=== PATIENT | female | born 1935 | race Caucasian/White ===

== ENCOUNTER 2022-01-04 09:28 | Outpatient (CLI) | payer MEDICARE, BC, SELFPAY ==
--- OUTSIDE RECORDS SUMMARY | 2022-01-04 09:33 | XMS_ITS | Clinical Summary ---
:1935 Author Organization [facility] Address [address] [place] [address] Care Team Providers Name Role Phone Aleisha Hermosillo M.D. Primary Care Provider [phone] Source Comments Patient records contain information from all sites at [facility]. For routine questions regarding patient records, call [phone] during business hours, M-F 8:00 AM - 5:00 PM Central Time. Record requests for emergency care only can be directed to [phone] at any time.[facility] Allergies Active Allergy Reactions Severity Noted Date Comments Lisinopril Other (see comments) 09/01/2014 Tickle in throat x 3 weeks with no other r fernando Medications Medication Sig Dispensed Refills Start Date End Date Status COLCRYS 0.6 mg tablet TAKE 2 TABLETS AT 10 tablet 3 03/26/2018 Active FIRST SIGN OF GOUT FLARE, FOLLOWED BY 1 TABLET ONE HOUR LATER(MAX OF 3 TABLETS PER ATTACK) DO NOT REPEAT FOR 3 DAYS Additional Information Patient not taking. Reported on 08/10/2020 allopurinoL (ZYLOPRIM) Take 1 tablet (100 90 tablet 3 08/11/19 21 Active 100 mg tablet mg total) by mouth daily. cyanocobalamin Inject 1 ml once 1 mL 08/18/2020 Active (VITAMIN B12) 1,000 weekly for 3 mcg/mL injection weeks, then take once monthly thereafter. syringe, disposable, 1 1 ml safety 1 each 08/18/2020 Active mL syringe syringe, 1/2 in needle, 25 Gauge- for use with B12 injections donepeziL (ARICEPT) 10 TAKE ONE TABLET BY 90 tablet 3 05/15/19 22 Active mg tablet MOUTH AT BEDTIME FOR MEMORY chlorthalidone Take 1 tablet (25 90 tablet 0 10/04/2021 Active (HYGROTON) 25 mg mg total) by mouth tablet daily. losartan (COZAAR) 100 TAKE ONE TABLET BY 30 tablet 0 2 Active mg tablet MOUTH EVERY DAY sertraline (ZOLOFT) 50 TAKE ONE TABLET BY 30 tablet 0 12/29/19 22 Active mg tablet MOUTH AT BEDTIME metoprolol tartrate TAKE ONE TABLET BY 60 tablet 0 12/28/2021 Active (LOPRESSOR) 25 mg MOUTH TWICE A DAY tablet metoprolol tartrate Take 1 tablet (25 180 tablet 3 08/10/2020 Discontinued (LOPRESSOR) 25 mg mg total) by mouth 022 tablet 2 (two) times a day. losartan (COZAAR) 100 TAKE ONE TABLET BY 90 tablet 0 2 Discontinued mg tablet MOUTH EVERY DAY 022 sertraline (ZOLOFT) 50 TAKE ONE TABLET BY 90 tablet 0 10/07/19 22 Discontinued mg tablet MOUTH AT BEDTIME 022 Active Problems Problem Noted Date Dementia 03/03/2015 Anxiety 03/03/2015 Hypercholesterolemia 06/01/2013 Overview: Pure hypercholesterolemia Gout 11/26/2012 Regurgitation Aortic 10/20/2011 Hypertension Essential Primary 10/18/2011 Overview: Hypertension Encounters Date Type Specialty Care Team Description 12/27/2021 Refill [facility] Med Refill Aleisha Gonzales M.D. 12/07/2021 Orders Only [place] Monitoring For Aleisha Gonzales Therapeutic Drug Juwan Rust Therapy 10/12/2021 Clinical Family Medicine [place] Quality Alyssa ures Communication Aleisha Gonzales (Hypertensi on) Juwan Rust 10/04/2021 Clinical [facility] chlorthalido ne Communication Aleisha Gonzales M.D. 10/04/2021 Refill [facility] Med Refill Aleisha Gonzales M.D. from Last 3 Months Immunizations Name Administration Dates Next Due Influenza, Unspecified 12/30/2015, 01/07/2015, 12/16/2013, 12/07/2012, 12/06/2011, 12/29/2010 PCV13 08/25/2014 PPSV23 01/28/2011 SARS-COV-2 (COVID-19) - PFIZER (12 06/22/2020, 05/14/2020 years or older) Td (Adult), adsorbed 01/15/2004 Tdap 08/25/2014 influenza high dose (65 years or 01/11/2019, 05/04/2017 older) (PF) Family History Medical History Relation Name Comments Alzheimer's disease Father Hypertension Father Diabetes Mother Hypertension Mother Hypertension Son Relation Name Status Comments Father Mother Son Social History Tobacco Use Types Packs/Day Years Used Date Smoking Tobacco: Never Smokeless Tobacco: Never Alcohol Use Standard Drinks/Week Comments No 0 (1 standard drink = 0.6 oz pure alcoho l) Sex Assigned at Date Recorded Not on file Last Filed Vital Signs Vital Sign Reading Time Taken Comments Blood Pressure 132/50 08/10/2020 11:20 AM CDT Pulse 60 08/10/2020 11:20 AM CDT Temperature 36.8 ??C (98.2 ??F) 08/10/2020 11:20 AM CDT Respiratory Rate 16 01/21/2019 12:25 PM INDUSTRIAL PHARMACIST Oxygen Saturation 95% 08/10/2020 11:20 AM CDT Inhaled Oxygen Concentration - - Weight 56.4 kg (124 lb 5.4 oz) 08/10/2020 11:20 AM CDT Height 162 cm (5' 3.78) 08/10/2020 11:20 AM CDT Body Mass Index 21.49 08/10/2020 11:20 AM CDT Plan of Treatment Health Maintenance Due Date Last Done Comments Zoster Vaccines (1 of 2) 01/11/1986 COVID-19 Vaccine (3 - Booster for 08/17/2020 06/22/2020, Pfizer series) Fall Risk Screen (Annual) 03/06/2021 Creatinine Level 08/10/2021 08/10/2020, 02/04/2019, 05/30/2018, Additional history exists Office Visit for Blood Pressure 08/10/2021 08/10/2020 Check / Re-check Potassium Level 08/10/2021 08/10/2020, 02/04/2019, 05/30/2018, Additional history exists Sodium Level 08/10/2021 08/10/2020, 02/04/2019, 05/30/2018, Additional history exists Visit: Chronic Disease, age 18+ 08/10/2021 08/10/2020 Influenza Vaccine (#1) 2021 01/11/2019, 05/04/2017, 12/30/2015, Additional history exists DTaP,Tdap,and Td Vaccines (2 - Td 08/25/2024 08/25/2014, or Tdap) Pneumococcal vaccine (65+ years) Completed 08/25/2014, Insurance Payer Benefit Plan Subscriber ID Effective Phone Address Typ e / Group Dates MEDICARE MEDICARE A [id number] 2001-Pre [address] [place] [address] BLUE CROSS BCBS [place] [id number] 2016-Pres [phone] PO TRI X Cost Share BLUE SHIELD BLUE COST ent [phone] [place] [address] Advance Directives For more information, please contact: [phone] Documents on File Type Date Recorded Patient Starchmaker Explanati on Advance Directives 05/24/2018 8:02 AM Health Care Directive Healthcare Agents on File Name Relationship Healthcare Agent Relationship Co mmunication Rickey Duenas Spouse Health Care Agent [phone] ( Home) Beto Duenas Son First Alternate Health Care Agen t Care Teams Water Treatment Plant Repairer Relationship Specialty Start Date End Date Aleisha Hermosillo M.D. PCP - General 08/18/[address] [place] [address] ANABEL Tapia [phone]
--- OUTSIDE RECORDS SUMMARY | 2022-01-04 09:33 | XMS_ITS | Encounter Summary ---
:1935 Author Organization [facility] Address [address] [place] [address] Care Team Providers Name Role Phone Aleisha Hermosillo M.D. Primary Care Provider [phone] Reason for Visit Reason Comments Med Refill Encounter Details Date Type Department Care Team Description 08/27/2020 Refill Department of [facility] Stephany Hermosillo Med Refill Medicine, [place] Juwan Rust [facility], in [address] [address] [place], [place] [address] [phone] Social History Tobacco Use Types Packs/Day Years Used Date Smoking Tobacco: Never Smokeless Tobacco: Never Alcohol Use Standard Drinks/Week Comments No 0 (1 standard drink = 0.6 oz pure alcoho l) Sex Assigned at Date Recorded Not on file documented as of this encounter Plan of Treatment Not on filedocumented as of this encounter Visit Diagnoses Not on filedocumented in this encounter Care Teams Multiple Pressure Riveter Operator Relationship Specialty Start Date End Date Aleisha Hermosillo M.D. PCP - General 08/18/[address] [place] [phone] documented as of this encounter
--- OUTSIDE RECORDS SUMMARY | 2022-01-04 09:33 | XMS_ITS | Encounter Summary ---
:1935 Author Organization [facility] Address [address] [place] [address] Care Team Providers Name Role Phone Aleisha Hermosillo M.D. Primary Care Provider [phone] Reason for Referral Outpatient (Routine) - Closed Specialty Diagnoses / Procedures Referred By Contact Refer red To Contact Stephany Hermosillo M.D. [address] [phone] Referral ID Status Reason Start Date Expiration Date Visits Requ ested Visits Authorized [id number] Closed 08/17/2020 08/17/2021 1 1 Encounter Details Date Type Department Care Team Description 08/17/2020 Orders Only [facility] (Primary Dx) [address] [address] [place], [place] [phone] (W ork) [phone] Social History Tobacco Use Types Packs/Day Years Used Date Smoking Tobacco: Never Smokeless Tobacco: Never Alcohol Use Standard Drinks/Week Comments No 0 (1 standard drink = 0.6 oz pure alcoho l) Sex Assigned at Date Recorded Not on file documented as of this encounter Plan of Treatment Scheduled Referrals Name Type Priority Associated Order Schedule Diagnoses Primary Care nurse Outpatient Referral Routine Ex pected: visit (clinic) - 08/18/2020, [facility] Region; Expires: Medication injection 024 (order medication); B12 documented as of this encounter Visit Diagnoses Diagnosis Anemia Pernicious - Primary documented in this encounter Care Teams Block Mason Relationship Specialty Start Date End Date Aleisha Hermosillo M.D. PCP - General 08/18/[address] [place] [phone] documented as of this encounter
--- OUTSIDE RECORDS SUMMARY | 2022-01-04 09:33 | XMS_ITS | Encounter Summary ---
:1935 Author Organization [facility] Address [address] [place] [address] Care Team Providers Name Role Phone Aleisha Hermosillo M.D. Primary Care Provider [phone] Reason for Referral Specialty Diagnoses / Procedures Referred By Contact Refer red To Contact Stephany Hermosillo M.D. [address] [phone] Referral ID Status Reason Start Date Expiration Date Visits Requ ested Visits Authorized CANDY MOLDER Encounter Details Date Type Department Care Team Description 2021 Orders Only [facility] PCP [facility] Aleisha Terrazas M.D. [address] [place] [phone] (Wo rk) Social History Tobacco Use Types Packs/Day Years Used Date Smoking Tobacco: Never Smokeless Tobacco: Never Alcohol Use Standard Drinks/Week Comments No 0 (1 standard drink = 0.6 oz pure alcoho l) Sex Assigned at Date Recorded Not on file documented as of this encounter Plan of Treatment Scheduled Referrals Name Type Priority Associated Order Schedule Diagnoses Covid immunization Outpatient Referral Routine Ex pected: office visit Booster 021 (Approximate), Expires: 2022 documented as of this encounter Visit Diagnoses Not on filedocumented in this encounter Care Teams Manager Relationship Relationship Specialty Start Date End Date Aleisha Hermosillo M.D. PCP - General 08/18/[phone] [place] [phone] documented as of this encounter
--- OUTSIDE RECORDS SUMMARY | 2022-01-04 09:33 | XMS_ITS | Encounter Summary ---
:1935 Author Organization [facility] Address [address] [place] [address] Care Team Providers Name Role Phone Aleisha Hermosillo M.D. Primary Care Provider Reason for Visit Reason Comments Medication Question Encounter Details Date Type Department Care Team Description 08/27/2020 Nurse Triage Department of Helene Caldera, [facility] Medicine, [facility], in [place] [phone] [place], [place] ([address] [phone] Social History Tobacco Use Types Packs/Day Years Used Date Smoking Tobacco: Never Smokeless Tobacco: Never Alcohol Use Standard Drinks/Week Comments No 0 (1 standard drink = 0.6 oz pure alcoho l) Sex Assigned at Date Recorded Not on file documented as of this encounter Miscellaneous Notes Telephone Encounter - Helene Tam R.N. - 08/27/2020 4:03 PM CDT Chief Complaint / Reason for Call Patient is a 85 y.o. female calling regarding Medication Question. Assessment Concern: Daughter in law calls due to giving patient .1 instead of 1 mg of B12 on Monday. She reports she recently started on B12 a couple weeks ago. Daughter in law was advised to reach out provider if how they would want to proceed. All questions answered at this time. The recommended disposition is Call PCP Within 24 Hours. Reason for Disposition ??? Caller has NON-URGENT medication question about med that PCP prescribed and triager unable to answer question Protocols used: MEDICATION QUESTION [id number] Care Advice Patient/Caregiver understands and will follow care advice?: Yes, able to teach back CARE ADVICE given per Medication Question Call (Adult) guideline. documented in this encounter Plan of Treatment Not on filedocumented as of this encounter Visit Diagnoses Not on filedocumented in this encounter Care Teams Improvement Spec Relationship Specialty Start Date End Date Aleisha Hermosillo M.D. PCP - General 08/18/[address] [place] [phone] documented as of this encounter
--- OUTSIDE RECORDS SUMMARY | 2022-01-04 09:33 | XMS_ITS | Encounter Summary ---
:1935 Author Organization [facility] Address [address] [place] [address] Care Team Providers Name Role Phone Aleisha Hermosillo M.D. Primary Care Provider [phone] Reason for Visit Reason Comments Med Refill Encounter Details Date Type Department Care Team Description 05/12/2021 Refill Department of [facility] Stephany Hermosillo Med Refill Medicine, [place] Juwan Rust [facility], in [address] [address] [place], [place] [phone] Social History Tobacco Use Types Packs/Day Years [...] on filedocumented in this encounter Care Teams Machinist Linotype Relationship Specialty Start Date End Date Aleisha Hermosillo M.D. PCP - General 08/18/[address] [place] [phone] documented as of this encounter
--- OUTSIDE RECORDS SUMMARY | 2022-01-04 09:33 | XMS_ITS | Encounter Summary ---
:1935 Author Organization [facility] Address [address] [place] [address] Care Team Providers Name Role Phone Aleisha Hermosillo M.D. Primary Care Provider [phone] Reason for Visit Occupational Therapy (Routine) - Closed Specialty Diagnoses / Procedures Referred By Contact Refer red To Contact Diagnoses Dementia (HCC) Aleisha Hermosillo [facility] Procedures OT Evaluate and treat Juwan Rust [address] [place] [phone] Referral ID Status Reason Start Date Expiration Date Visits Requ ested Visits Authorized [id number] Closed 08/10/2020 08/10/2021 99 99 Encounter Details Date Type Department Care Team Description 08/18/2020 Comprehensive Visit Department of [place] Aleisha Melgoza M.D. [address] [place] [phone] Dementia (HCC) Rehabilitation Services Val De Santiago O.T. in [address] [phone] Social History Tobacco Use Types Packs/Day Years Used Date Smoking Tobacco: Never Smokeless Tobacco: Never Alcohol Use Standard Drinks/Week Comments No 0 (1 standard drink = 0.6 oz pure alcoho l) Sex Assigned at Date Recorded Not on file documented as of this encounter Consult Notes Val De Santiago O.T. - 08/18/2020 11:00 AM CDT Occupational Therapy Outpatient Evaluation/Treatment By co-signing this note, the provider certifies the therapy being provided to this patient is reasonable and necessary for the diagnosis or treatment of this patient. SUBJECTIVE Patient's Name: Janeth Duenas Referring Provider: Aleisha Otero* Visit Diagnosis: 1. Dementia (HCC) Reason for Referral: OT referral for cognitive assessment Onset Date: 08/17/20 Payor: MEDICARE / Plan: MEDICARE A AND B / Product Type: Medicare / Visit Count: 1 PERTINENT MEDICAL / SURGICAL HISTORY: Patient Active Problem List Diagnosis ??? Hypertension Essential Primary ??? Dementia (HCC) ??? Gout ??? Hypercholesterolemia ??? Regurgitation Aortic ??? Anxiety Past Surgical History: Procedure Laterality Date ??? HYSTERECTOMY N/A 1976 Hysterectomy Janeth Duenas is a 85 y.o. female who presents to outpatient occupational therapy for evaluation. Her symptoms consist of: 1. Dementia Overall she reports her status is worsening . History of Present Illness:She has diagnoses of dementia and is currently on Aricept Previous Treatments: No previous treatments Prior Function/Occupational Profile: Prior Mobility/Functional Transfers Level of [place]: Independent Prior Function/Occupational Profile Lives With: Spouse Receives Help From: Family ADL Assistance: Modified independent IADL/Homemaking Assistance: Required assistance IADL/Homemaking Assistance Comments: spouse assists Driving: Does not drive Driving Comments: She reports she drives but ckuzfzkz-vj-zsv indicated she does not; spouse drives Occupational Role: Retired Family/Caregiver Present: Yes (Wfskyibd-gj-ceu Katie) Patient goals:cognitive screen Precautions Other Precautions: cognition Contact monitoring: PPE used during therapy: Therapist was wearing the following PPE throughout entire session: surgicalmask OBJECTIVE PHYSICAL EXAM Ortho Exam Cognition Arousal/Alertness: Appropriate responses to stimuli Initiation: No difficulty with initiation Memory: Addressed, no concerns noted Janeth Duenas was administered the [facility] Mental Status Exam (SLUMS), which delia screening tool used to assess orientation, memory, attention, and executive functions. Janeth Duenas has a high school education level of education and received a score of 30on 08/18/20. High School Education Scoring Less than High School 27-30 Normal 25-30 21-26 Mild Cognitive Impairment 20-24 1-20 Dementia 1-19 SLUMS Score Summary: +2/3 Orientation +3/3 Mental Manipulation of Money +1/3 Animal Fluency +0/5 Word Recall +1/2 Reverse Numbers +1/4 Draw a Clock +2/2 Shape Recognition +0/8 Recall from Story Patient shows significant decline in memory. Throughout the interview about her daily living tasks, she often reported independence with items in which her uzobbyxl-zc-qwr reported she received assistance for. Recommend her spouse managed the finances and medications (sysvpyas-jg-llu sets up and he ensures she takes). She should not use stove/oven without someone around and should not drive. Education completed with use of calendar, keeping track of when she takes baths, ideas for journals/lists, putting dirty clothes immediately in laundry instead of leaving out, etc. At this level of dementia, wemay start to notice cues needed for hygiene. At this time, her kfmdrpyd-oa-art felt she was doing ok with this. Talked with her about ways to continue to stimulate her brain including reading, cards, keeping up with news, orienting self every morning and throughout day, keeping physically active and having a well rounded diet. Patient and dmbssjwu-jg-anx reported no further questions. Assessment Clinical Impression: Ms. Duenas presents to occupational therapy with signs and symptoms consistentwith dementia/cognitive impairment Rehab Potential: Ms. Duenas has potential to achieve established occupational therapy goals within the time frame outlined below, provided she actively participates in her occupational therapy treatment plan and home program. Comorbid Conditions: Cognitive/memory disorder Occupational Profile and History review: Brief Performance Deficits: 1 - 3 performance deficits Evaluation Complexity: Low Discharge Therapy Needs - OT: No further therapy recommended Functional Goals and Timeframes: OT Goal #1: Patient will participate in cognitive screen OT Goal #1 Date: 08/18/20 Plan Ms. Duenas was educated regarding evaluative findings, diagnosis, prognosis, potential risks and benefits of rehabilitation interventions. A collaborative effort was used to establish goals and plan of care. She was informed of her right to make decisions regarding her care, including refusal of examination or treatment or selection of services from another provider if desired. The treatment plan may be progressed or modified based upon her response to treatment. Treatment Plan: Start of Plan of Care: 08/18/2020 OT Next Certification Date: 09/17/20 Number of Visits: up to visits OT Duration: OT Frequency: One-time visit Treatment interventions may include: Treatment Interventions: Self-care/home management. Plan: Discontinue OT Occupational Therapy Attestation Statement: Patient agrees with the plan of care and goals. Time Spent with Patient OT Evaluation (min): 18 min Home Management Training (min): 27 min Time Calculation Total Timed Units (min): 27 min Total Treatment Time (min): 45 min Val De Santiago O.T. Department of Rehabilitation Services in [address] [phone] Dept: [phone] documented in this encounter Plan of Treatment Not on filedocumented as of this encounter Visit Diagnoses Diagnosis Dementia (HCC) documented in this encounter Care Teams Practical Ministries Professor Relationship Specialty Start Date End Date Aleisha Hermosillo M.D. PCP - General 08/18/[address] [place] [phone] documented as of this encounter
--- OUTSIDE RECORDS SUMMARY | 2022-01-04 09:33 | XMS_ITS | Encounter Summary ---
:1935 Author Organization [facility] Address [address] [place] [address] Care Team Providers Name Role Phone Aleisha Hermosillo M.D. Primary Care Provider [phone] Reason for Visit Reason Comments Medication Question syringe, disposable, 1 mL sy ringe Encounter Details Date Type Department Care Team Description 08/18/2020 Clinical Department of [facility], [place] st[place] Communication Family Medicine, Aleisha Gonzales (chrystal eKeith M.D. disposable, 1 mL Clinic, in [place] [address] syringe ) [address] [address] [place], [place] [phone] (Work) [phone] Social History Tobacco Use Types Packs/Day Years Used Date Smoking Tobacco: Never Smokeless Tobacco: Never Alcohol Use Standard Drinks/Week Comments No 0 (1 standard drink = 0.6 oz pure alcoho l) Sex Assigned at Date Recorded Not on file documented as of this encounter Miscellaneous Notes Telephone Encounter - Penny Munroe, L.P.N. - 08/26/2020 10:08 AM CDT Patient called and was asking why they only got one syringe for administering the B12 at home. Contacted [facility] pharmacy and will dispense one weekly for three weeks then once monthly as RX is written. Telephone Encounter - Alon Lewis L.P.N. - 08/18/2020 1:45 PM CDT Information Discussed Contacted Pharmacy. Verified that the medication route was subcutaneous, needle size required for this injection is 25G 5/8in. Pharmacist had no further questions or concerns. PLAN Disposition/Recommendation: self-care . appropriate at this time, patient encouraged to call back with questions Information/Education: patient/caller able to teach back Caller agreeable to plan of care: yes The following references were used: nursing clinical judgement Telephone Encounter - Arleth Singer - 08/18/2020 9:01 AM CDT Reason for Communication: Confirmation on Script sent/ possibly to use a different kind Current Can Nursing/Provider leave a detailed message: yes Did the patient refuse triage through Nurse line? (for symptom based concerns)na Action Needed: please call to discuss options Name of Medication (if relevant): syringe, disposable, 1 mL syringe documented in this encounter Plan of Treatment Not on filedocumented as of this encounter Visit Diagnoses Not on filedocumented in this encounter Care Teams Electrocardiograph Repairer Relationship Specialty Start Date End Date Aleisha Hermosillo M.D. PCP - General 08/18/[address] [phone] documented as of this encounter
--- OUTSIDE RECORDS SUMMARY | 2022-01-04 09:33 | XMS_ITS | Encounter Summary ---
:1935 Author Organization [facility] Address [address] [place] [address] Care Team Providers Name Role Phone Aleisha Hermosillo M.D. Primary Care Provider Encounter Details Date Type Department Care Team Description 2021 Orders Only RST PCP [facility] Aleisha Terrazas M.D. [address] [address] [place] [phone] (Wo rk) Social History Tobacco Use Types [...] on filedocumented in this encounter Care Teams Returner Relationship Specialty Start Date End Date Aleisha Hermosillo M.D. PCP - General 08/18/[address] [phone] documented as of this encounter
--- OUTSIDE RECORDS SUMMARY | 2022-01-04 09:33 | XMS_ITS | Encounter Summary ---
:1935 Author Organization [facility] Address [address] [place] [address] Care Team Providers Name Role Phone Aleisha Hermosillo M.D. Primary Care Provider Reason for Visit Reason Comments B12 Injection Outpatient (Routine) - Closed Specialty Diagnoses / Procedures Referred By Contact Refer red To Contact Stephany Hermosillo M.D. [address] [phone] Referral ID Status Reason Start Date Expiration Date Visits Requ ested Visits Authorized [id number] Closed 08/17/2020 08/17/2021 1 1 Encounter Details Date Type Department Care Team Description 08/18/2020 Nurse Only Department of [facility] Aleisha Avitia M.D. [address] [place] [phone] B12 Injection Medicine, [place] [facility], in [address] [phone] Social History Tobacco Use Types Packs/Day Years Used Date Smoking Tobacco: Never Smokeless Tobacco: Never Alcohol Use Standard Drinks/Week Comments No 0 (1 standard drink = 0.6 oz pure alcoho l) Sex Assigned at Date Recorded Not on file documented as of this encounter Progress Notes Bonnie Duque L.PKaiN. - 08/18/2020 1:30 PM CDT Patient identifiers were verified and the following medication was administered to the patient today: Cyanocobalamin (Vitamin B12) Left upper arm (back). During this visit: Patient tolerated medicationadministration with no issues identified. documented in this encounter Plan of Treatment Not on filedocumented as of this encounter Visit Diagnoses Diagnosis Anemia Pernicious documented in this encounter Administered Medications Inactive Administered Medications - up to 3 most recent administrations Medication Order MAR Action Action Date Dose Rate Site cyanocobalamin 1,000 Given 08/18/2020 11:46 1,000 mcg Left Upper Arm mcg/mL injection 1,000 mcg AM CDT (Back) (VITAMIN B12) 1,000 mcg, subcutaneous, Weekly, First dose on Mon08/18/20 at 0900, For 4 doses documented in this encounter Care Teams Manager Salt Relationship Specialty Start Date End Date Aleisha Hermosillo M.D. PCP - General 08/18/[address] [place] [phone] documented as of this encounter
--- OUTSIDE RECORDS SUMMARY | 2022-01-04 09:33 | XMS_ITS | Encounter Summary ---
:1935 Author Organization [facility] Address [address] [place] [address] Care Team Providers Name Role Phone Aleisha Hermosillo M.D. Primary Care Provider [phone] Reason for Visit Reason Comments Med Refill Encounter Details Date Type Department Care Team Description 08/17/2021 Refill Department of [facility] Stephany Hermosillo Med Refill Medicine, [place] Juwan Rust [facility], in [address] [address] [place], [place] [phone] Social History Tobacco Use Types Packs/Day Years [...] on filedocumented in this encounter Care Teams Light Cleaner Relationship Specialty Start Date End Date Aleisha Hermosillo M.D. PCP - General 08/18/[address] [place] [phone] documented as of this encounter
--- OUTSIDE RECORDS SUMMARY | 2022-01-04 09:33 | XMS_ITS | Encounter Summary ---
:1935 Author Organization [facility] Address [address] [place] [address] Care Team Providers Name Role Phone Aleisha Hermosillo M.D. Primary Care Provider [phone] Reason for Referral Specialty Diagnoses / Procedures Referred By Contact Refer red To Contact Leta Gomes M.D. [facility] [address] [place] [address] Referral ID Status Reason Start Date Expiration Date Visits Requ ested Visits Authorized AVINGS POLISHER Encounter Details Date Type Department Care Team Description 01/15/2021 Orders Only RST PCP [facility] Leta Gomes M.D. [address] [place], [place] [phone] (Wo rk) Social History Tobacco Use Types [...] pected: office visit Booster 021 (Approximate), Expires: 01/15/2022 documented as of this encounter Visit Diagnoses Not on filedocumented in this encounter Care Teams Instrumentation Technologist Relationship Specialty Start Date End Date Aleisha Hermosillo M.D. PCP - General 08/18/[address] [place] [phone] documented as of this encounter
--- OUTSIDE RECORDS SUMMARY | 2022-01-04 09:33 | XMS_ITS | Encounter Summary ---
:1935 Author Organization [facility] Address [address] [place] [address] Care Team Providers Name Role Phone Aleisha Hermosillo M.D. Primary Care Provider [phone] Reason for Referral Outpatient (Routine) - Authorized Specialty Diagnoses / Procedures Referred By Contact Refer red To Contact Stephany Hermosillo M.D. [facility] [address] [place] [phone] Referral ID Status Reason Start Date Expiration Date Visits V isits Requested Authorized [id number] Authorized 12/07/2021 12/06/2024 1 1 Encounter Details Date Type Department Care Team Description 12/07/2021 Orders Only [facility] PCP [facility] Noa Hermosillo For MNT Aleisha Rust M.D. Therapeutic Drug [address] [place] [address] [place] [phone] (Wo rk) Social History Tobacco Use Types Packs/Day Years Used Date Smoking Tobacco: Never Smokeless Tobacco: Never Alcohol Use Standard Drinks/Week Comments No 0 (1 standard drink = 0.6 oz pure alcoho l) Sex Assigned at Date Recorded Not on file documented as of this encounter Plan of Treatment Scheduled Orders Name Type Priority Associated Diagnoses Order S rosemary Basic Metabolic Panel Lab Routine Monitoring For Ther apeutic Expected: 12/21/2021, Drug Therapy Expires: 2022 Scheduled Referrals Name Type Priority Associated Diagnoses Order S rosemary Primary Care nurse Outpatient Referral Routine Ex pected: visit (clinic) - 12/21/2021, [facility]; Expires: BP check; BP check 3 only (HELP DESK REP) documented as of this encounter Visit Diagnoses Diagnosis Monitoring For Therapeutic Drug Therapy documented in this encounter Care Teams Health Service Coordinator Relationship Specialty Start Date End Date Aleisha Hermosillo M.D. PCP - General 08/18/[address] [place] [phone] documented as of this encounter
--- OUTSIDE RECORDS SUMMARY | 2022-01-04 09:33 | XMS_ITS | Encounter Summary ---
:1935 Author Organization [facility] Address [address] [place] [address] Care Team Providers Name Role Phone Aleisha Hermosillo M.D. Primary Care Provider [phone] Reason for Visit Reason Comments Quality Measures Hypertension Encounter Details Date Type Department Care Team Description 10/12/2021 Clinical Department of [place] Quality Measur es Communication Family Medicine, Aleisha Gonzales (Hypert ension) [facility] M[facility], in [address] [address] [place], [place] [phone] (Work) [phone] Social History Tobacco Use Types Packs/Day Years Used Date Smoking Tobacco: Never Smokeless Tobacco: Never Alcohol Use Standard Drinks/Week Comments No 0 (1 standard drink = 0.6 oz pure alcoho l) Sex Assigned at Date Recorded Not on file documented as of this encounter Miscellaneous Notes Telephone Encounter - Pina Duenas - 10/18/2021 4:47 PM CDT Spoke with caregiver/ daughter in law (Katie) - she is doctoring elsewhere and no appointments needed at this time Telephone Encounter - Clara Jackson, RKaiN. - 10/12/2021 2:24 PM CDT Patient out of range for hypertension quality measures due to being due for blood pressure check. LV08/10/2020. Order in chart for visit. Message sent to scheduling to assist patient in making appointment. documented in this encounter Plan of Treatment Not on filedocumented as of this encounter Visit Diagnoses Not on filedocumented in this encounter Care Teams Biomedical Analytical Scientist Relationship Specialty Start Date End Date Aleisha Hermosillo M.D. PCP - General 08/18/[address] [place] [phone] documented as of this encounter
--- OUTSIDE RECORDS SUMMARY | 2022-01-04 09:33 | XMS_ITS | Encounter Summary ---
:1935 Author Organization [facility] Address [address] [place] [address] Care Team Providers Name Role Phone Aleisha Hermosillo M.D. Primary Care Provider [phone] Reason for Visit Reason Comments Med Refill Encounter Details Date Type Department Care Team Description 10/04/2021 Refill Department of [facility] Stephany Hermosillo Med Refill Medicine, [place] Juwan Rust [facility], in [address] [address] [place], [place] [phone] Social History Tobacco Use Types Packs/Day Years [...] on filedocumented in this encounter Care Teams Material Assembler Relationship Specialty Start Date End Date Aleisha Hermosillo M.D. PCP - General 08/18/[address] [place] [phone] documented as of this encounter
--- OUTSIDE RECORDS SUMMARY | 2022-01-04 09:33 | XMS_ITS | Encounter Summary ---
:1935 Author Organization [facility] Address [address] [place] [address] Care Team Providers Name Role Phone Aleisha Hermosillo M.D. Primary Care Provider [phone] Reason for Visit Reason Comments Results Encounter Details Date Type Department Care Team Description 08/17/2020 Clinical Communication Department of [facility] Carly lott, Results Medicine, Keith Rust M.D. [facility], [address] [address] [place], [place] [phone] (Work) [phone] Social History Tobacco Use Types Packs/Day Years Used Date Smoking Tobacco: Never Smokeless Tobacco: Never Alcohol Use Standard Drinks/Week Comments No 0 (1 standard drink = 0.6 oz pure alcoho l) Sex Assigned at Date Recorded Not on file documented as of this encounter Miscellaneous Notes Telephone Encounter - Clara Jackson R.N. - 08/17/2020 3:45 PM CDT Information Discussed Spoke with Katie and relayed provider message. She would like to do the initial visit in clinic andwill plan to do subsequent administrations for patient at home. Please send medication and syringe order to [facility]. PLAN Disposition/Recommendation: notified provider and awaiting recommendations Information/Education: patient/caller able to teach back Caller agreeable to plan of care: yes The following references were used: provider Dr. Vieyra Telephone Encounter - Rachel Torres - 08/17/2020 3:19 PM CDT Patient returned call. Telephone Encounter - Clara Jackson R.N. - 08/17/2020 9:50 AM CDT Left message for daughter in law Wilson to contact clinic regarding [place] results. Telephone Encounter - Clara Jackson R.N. - 08/17/2020 9:50 AM CDT ----- Message from Aleisha Gonzales M.D. sent at 08/17/2020 9:37 AM CDT ----- Please let patient's daughter in law Wilson know that patient's labs show some abnormalities. 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 We treat this with a B12 injection initially weekly for 1 monthand then monthly thereafter. This can either be administered in the clinic or by family at home. Otherwise thyroid test is normal. Electrolytes are normal. Her kidney function has declined some which is not unusual with age. Blood sugar and uric acid levels are normal. I will place order for the B12 injection to initially be given in the clinic. documented in this encounter Plan of Treatment Not on filedocumented as of this encounter Visit Diagnoses Not on filedocumented in this encounter Care Teams Aquatic Ecologist Relationship Specialty Start Date End Date Aleisha Hermosillo M.D. PCP - General 6/15/[phone] [phone] documented as of this encounter
--- OUTSIDE RECORDS SUMMARY | 2022-01-04 09:33 | XMS_ITS | Encounter Summary ---
:1935 Author Organization [facility] Address [address] [place] [address] Care Team Providers Name Role Phone Aleisha Hermosillo M.D. Primary Care Provider [phone] Reason for Visit Reason Comments Med Refill Encounter Details Date Type Department Care Team Description 12/27/2021 Refill Department of [facility] Stephany Hermosillo Med Refill Medicine, [place] Juwan Rust [facility], in [address] [address] [place], [place] [address] [phone] Social History Tobacco Use Types Packs/Day Years [...] on filedocumented in this encounter Care Teams Bevel Gear Generator Operator Relationship Specialty Start Date End Date Aleisha Hermosillo M.D. PCP - General 08/18/[address] [place] [phone] documented as of this encounter
--- OUTSIDE RECORDS SUMMARY | 2022-01-04 09:33 | XMS_ITS | Encounter Summary ---
:1935 Author Organization [facility] Address [address] [place] [address] Care Team Providers Name Role Phone Aleisha Hermosillo M.D. Primary Care Provider [phone] Reason for Visit Reason Comments chlorthalidone Encounter Details Date Type Department Care Team Description 10/04/2021 Clinical Communication Department of [place] [facility] [place] [facility], in [address] [address] [place], [place] [phone] (Work) [phone] Social History Tobacco Use Types Packs/Day Years Used Date Smoking Tobacco: Never Smokeless Tobacco: Never Alcohol Use Standard Drinks/Week Comments No 0 (1 standard drink = 0.6 oz pure alcoho l) Sex Assigned at Date Recorded Not on file documented as of this encounter Miscellaneous Notes Telephone Encounter - Aleisha Hermosillo M.D. - 10/04/2021 2:44 PM CDT Patient is due for visit and labs which were ordered. I did refill chlorthalidone for 90 days to allow patient to have this appointment. Telephone Encounter - Patricia Rubio L.PKaiN. - 10/04/2021 2:40 PM CDT According to the chart, Janeth should be taking this as just one tablet daily. Not sure when the error began. Last fill was end of August for 90 tabs. Will she need any blood work to be done due to this error? If so, please order and we'll call Katie, her dtr in law back. Telephone Encounter - Alisha Madrigal - 10/04/2021 12:26 PM CDT Reason for Communication: Patients daughter in law called - patient is out of her Chlorthalidone - she has been taking 2 tablets daily. Not sure if that was ordered by you or if patient is doing it on her own. Please review and call daughter in law Wilson back at Current Can Nursing/Provider leave a detailed message?: yes you can Did the patient refuse triage through Nurse line? (for symptom based concerns): na Action Needed: Please call Katie back Name of Medication (if relevant): Chlorthalidone Please send all scheduling replies to scheduling pool. documented in this encounter Plan of Treatment Not on filedocumented as of this encounter Visit Diagnoses Diagnosis Hypertension Essential Primary - Primary documented in this encounter Care Teams Reconditioner Relationship Specialty Start Date End Date Aleisha Hermosillo M.D. PCP - General 08/18/[address] [phone] documented as of this encounter
--- OUTSIDE RECORDS SUMMARY | 2022-01-04 09:34 | XMS_ITS | Encounter Summary ---
:1935 Author Organization [facility] Address [address] [place] [address] Care Team Providers Name Role Phone Aleisha Hermosillo M.D. Primary Care Provider [phone] Reason for Referral Occupational Therapy (Routine) - Closed Specialty Diagnoses / Procedures Referred By Contact Refer red To Contact Diagnoses Dementia ([facility]) [facility] Procedures OT Evaluate and treat Juwan Rust [address] [place] [id number] Referral ID Status Reason Start Date Expiration Date Visits Requ ested Visits Authorized [id number] Closed 08/10/2020 08/10/2021 99 99 Reason for Visit Reason Comments Med Management physical Cognitive Concerns would like to test memory Appointment Request (Routine) - Closed Specialty Diagnoses / Procedures Referred By Contact Refer red To Contact Family Medicine Referral ID Status Reason Start Date Expiration Date Visits Requ ested Visits Authorized [id number] Closed 06/15/2020 06/15/2021 1 1 Encounter Details Date Type Department Care Team Description 08/10/2020 Comprehensive Visit Department of Carroll Deng hyman ([facility]) (Primary Dx); Family MedicineJanet Megan Hyperten abhilash Essential Primary; Keith Rust M.D. Gout; Clinic, in [place] [address] Anxiety ; [place], [place] [address] Regurgitation Aortic; [address] [place] [address] [address] [place] [address] [address] [place] [phone] (Work) [phone] Social History Tobacco Use Types Packs/Day Years Used Date Smoking Tobacco: Never Smokeless Tobacco: Never Alcohol Use Standard Drinks/Week Comments No 0 (1 standard drink = 0.6 oz pure alcoho l) Sex Assigned at Date Recorded Not on file documented as of this encounter Last Filed Vital Signs Vital Sign Reading Time Taken Comments Blood Pressure 132/50 08/10/2020 11:20 AM CDT Pulse 60 08/10/2020 11:20 AM CDT Temperature 36.8 ??C (98.2 ??F) 08/10/2020 11:20 AM CDT Respiratory Rate - - Oxygen Saturation 95% 08/10/2020 11:20 AM CDT Inhaled Oxygen Concentration - - Weight 56.4 kg (124 lb 5.4 oz) 08/10/2020 11:20 AM CDT Height 162 cm (5' 3.78) 08/10/2020 11:20 AM CDT Body Mass Index 21.49 08/10/2020 11:20 AM CDT documented in this encounter Progress Notes Patricia Rubio L.P.N. - 08/10/2020 11:00 AM CDT Janeth is seen by Dr. Carroll who ordered lavage of the right ear. Verified there are no PE (pressure equalization) tubes in place. The procedure was explained to the patient and verbal consent obtained. Irrigation was performed using an ear irrigation system and 500 cc . Irrigant returned yellow with moderate amount of soft cerumen. The procedure was tolerated well, without complication. Instructed not to place cotton tip swabs or other foreign objects in ears and to call the office if there is pressure, discomfort, irritability, and/or decreased hearing. Understanding verbalized. Provider notified of completion. Aleisha Hermosillo M.D. - 08/10/2020 11:00 AM CDT SUBJECTIVE CHIEF COMPLAINT / REASON FOR VISIT Janeth Duenas is a 85 y.o. female who presents for evaluation of Med Management (physical ) and Cognitive Concerns (would like to test memory ). HISTORY OF PRESENT ILLNESS Janeth presents with her [id number] today. She continues to have significant troubles with her memory and is no longer to take care of tasks at home. She repeats herself. Family helps to manage herpills and finances. She no longer drives. They would like to pursue cognitive testing. She complains of an occasional earache and sore throat. She is cold a lot. She denies any chest pain or shortness of breath. She has not had any gouty attacks. Mood is generally good. She has been sleeping more during the day. Appetite is good and weight is stable. REVIEW OF SYSTEMS A brief review of systems was negative except for that mentioned in the history of present illness. Current Outpatient Medications Medication Sig ??? allopurinoL (ZYLOPRIM) 100 mg tablet Take 1 tablet (100 mg total) by mouth daily. ??? chlorthalidone (HYGROTON) 25 mg tablet Take 1 tablet (25 mg total) by mouth daily. ??? donepeziL (ARICEPT) 10 mg tablet Take 1 tablet (10 mg total) by mouth at bedtime. ??? losartan (COZAAR) 100 mg tablet Take 1 tablet (100 mg total) by mouth daily. ??? metoprolol tartrate (LOPRESSOR) 25 mg tablet Take 1 tablet (25 mg total) by mouth 2 (two) times a day. ??? sertraline (ZOLOFT) 50 mg tablet Take 1 tablet (50 mg total) by mouth at bedtime. ??? COLCRYS 0.6 mg tablet TAKE 2 TABLETS AT FIRST SIGN OF GOUT FLARE, FOLLOWED BY 1 TABLET ONE HOUR LATER(MAX OF 3 TABLETS PER ATTACK) DO NOT REPEAT FOR 3 DAYS (Patient not taking: Reported on 08/10/2020) Allergies Allergen Reactions ??? Lisinopril Other (see comments) Tickle in throat x 3 weeks with no other reason OBJECTIVE PHYSICAL EXAMINATION BP (!) 132/50 (BP Location: Left arm, Patient Position: Sitting, Cuff Size: Regular) Pulse 60 Temp 36.8 ??C (Temporal) Ht 162 cm Wt 56.4 kg SpO2 95% BMI 21.49 kg/m?? Body mass index is 21.49 kg/m??. General: Alert and oriented. No acute distress. HEENT: Right ear canal is occluded with wax. Left TM is visible and unremarkable. Oropharynx is unremarkable. Neck: Supple. No lymphadenopathy. Bilateral carotid bruits. Cardiovascular Exam: Regular rate and rhythm. Normal S1 and S2. 2/6 diastolic murmur. Lungs: Clear to auscultation bilaterally. Abdomen: Soft. Nontender. No masses, rebound, or guarding. Normoactive bowel sounds. Extremities: No pedal edema. Neurologic: Cranial nerves 2-12 grossly intact without any focal deficits. Patient is a little unsteady. She has a hard time giving detailed answers to questions and looks to her [id number] for confirmation. DIAGNOSTICS Results for orders placed or performed in visit on 08/10/20 Basic Metabolic Panel Result Value Ref Range Potassium, P 3.8 3.6 - 5.2 mmol/L Sodium, P 142 135 - 145 mmol/L Chloride, P 107 98 - 107 mmol/L Bicarbonate, P 25 22 - 29 mmol/L Anion Gap, P 10 7 - 15 BUN, P 25 (H) 6 - 21 mg/dL Creatinine, P 1.16 (H) 0.59 - 1.04 mg/dL eGFR Black 50 (L) >=60 mL/min/BSA eGFR Non-Black 43 (L) >=60 mL/min/BSA Calcium, Total, P 9.2 8.8 - 10.2 mg/dL Glucose, P 94 70 - 140 mg/dL S-TSH (Thyroid-Stimulating Hormone - Sensitive) Result Value Ref Range TSH, Sensitive, P 2.1 0.3 - 4.2 mIU/L Uric Acid Result Value Ref Range Uric Acid, P 4.5 2.7 - 6.1 mg/dL ASSESSMENT / PLAN #1 Dementia (HCC) Repeated vitamin B12 and TSH levels. We will refer to cognitive testing with occupational therapy. Discussed the potential for obtaining an MRI of the we will hold off on this currently. We will continue Aricept. Discussed potentially adding Namenda but I am uncertain if it would have any value as I feel her dementia is more advanced. 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 Creatinine is stable. Continue current medications. #3 Gout They would like to try reduce pill burden so we will reduce allopurinol to 1 tablet daily. #4 Anxiety Continue current dose of sertraline. #5 Regurgitation Aortic Reviewed last echocardiogram from 2019. Patient is not having any worrisome symptoms so will hold off on further evaluation. #6 Cerumen Impacted Right Impacted cerumen removed from right ear. Plan was discussed with patient and is in agreement with plan. All questions were answered, side effects of any/all new medications were discussed. Patient left in no acute distress. Aleisha Gonzales MD documented in this encounter Plan of Treatment Not on filedocumented as of this encounter Procedures Procedure Name Priority Date/Time Associated Diagnosis Comme nts HC ORGANIC ACID 1 Routine 08/10/2020 12:09 Result s for this QUANT 2 PM CDT procedure are i n the results section. HC INTRINSIC FACTOR Routine 08/10/2020 12:09 Resu lts for this AB PM CDT procedure are i n the results section. PERNICIOUS ANEMIA Routine 08/10/2020 12:09 Dementia (HCC) Resu lts for this CASCADE, S PM CDT procedure are i n the results section. URIC ACID, S/P Routine 08/10/2020 12:09 Gout Results f or this PM CDT procedure are i n the results section. THYROID-STIMULATING Routine 08/10/2020 12:09 Dementia (HCC) Re sults for this HORMONE-SENSITIVE PM CDT procedure are in (S-TSH) the results section. GASTRIN, S Routine 08/10/2020 12:09 Results for this PM CDT procedure are i n the results section. BASIC METABOLIC Routine 08/10/2020 12:09 Hypertension Results for this PANEL, S/P PM CDT Essential Primary procedure are in the results section. documented in this encounter Results (ABNORMAL) Gastrin (08/10/2020 12:09 PM CDT) P athologist Signature Gastrin, S 679 (H) pg/mL 08/14/2020 [facility] 7:24 PM CDT Comment: Consistent with pernicious anemia. ----REFERENCE VALUE---- <100 Reference ranges valid for >= 8 hour fast. Specimen Anatomical Collection Method Collection Time Receive d Time (Source) Location / / Volume Laterality Blood 08/10/2020 12:09 08/14/2020 7:24 PM CDT PM CDT Aleisha Gonzales M.D. LAB BLOOD NON ADD-ON Performing Organization Address City/[facility]/ZIP Code Phon e Number [facility] [address] [place], [place] [address] [facility] [place] [address] Laboratory Medicine and Pathology [address] [place] [address] Dr. [place] Intrinsic Factor Blocking Antibody, Serum (08/10/2020 12:09 PM CDT) P athologist Signature Intrinsic Negative Negative 08/14/2020 [facility] Factor 3:45 PM CDT Blocking Ab, S Comment: Positive in 50% of persons with pernicio us anemia. Gastrin test was performed. Specimen Anatomical Collection Method Collection Time Receive d Time (Source) Location / / Volume Laterality Blood 08/10/2020 12:09 08/11/2020 9:34 PM CDT AM CDT Aleisha Gonzales M.D. LAB BLOOD NON ADD-ON Performing Organization Address City/[facility]/ZIP Code Phon e Number [facility] [address] [place] [address] [facility] [place] [address] Laboratory Medicine and Pathology [address] [place] [address] Dr. [place] (ABNORMAL) Methylmalonic Acid (MMA), Quantitative, Serum (08/10/2020 12:09 PM CDT) Patholo gist Method Time Signature Methylmalonic 0.46 (H) <=0.40 08/14/2020 [facility] Acid, QN, S nmol/mL 8:21 AM CDT Comment: Intrinsic Factor Blocking Antibody was p erformed. In this sample, the concentration of met hylmalonic acid (MMA) was minimally elevated. As the upper limit of the refe rence range varies in different laboratories from 0.4 to 0.6 nmol/mL. Th is finding could be considered normal, especially if the patient does n ot show other signs of vitamin B12 deficiency. ----ADDITIONAL INFORMATION---- This test was developed and its performa nce characteristics determined by [facility] in a manner consistent with CLIA requirements. This test has not been cleared or approved by the [place] d and Drug Administration. Specimen Anatomical Collection Method Collection Time Receive d Time (Source) Location / / Volume Laterality Blood 08/10/2020 12:09 08/11/2020 PM CDT 12:39 PM CDT Aleisha Gonzales M.D. LAB BLOOD NON ADD-ON Performing Organization Address City/State/ZIP Code Phon e Number [facility] - [address] [place], [place] [address] [facility] [place] [address] Laboratories-[facility] [address] Uric Acid (08/10/2020 12:09 PM CDT) P athologist Signature Uric Acid, P 4.5 2.7 - 6.1 08/10/2020 [facility] mg/dL 12:30 PM CDT Specimen Anatomical Collection Method Collection Time Receive d Time (Source) Location / / Volume Laterality Blood (Blood, 08/10/2020 12:09 08/10/2020 Venous) PM CDT 12:12 PM CDT Aleisha Gonzales M.D. LAB BLOOD ADD-ON Performing Organization Address City/[facility] Code Phon e Number [address] [address] [place] [address] System in [address] S-TSH (Thyroid-Stimulating Hormone - Sensitive) (08/10/2020 12:09 PM CDT) P athologist Signature TSH, Sensitive 2.1 0.3 - 4.2 08/10/2020 [facility] mIU/L 12:39 PM CDT Specimen Anatomical Collection Method Collection Time Receive d Time (Source) Location / / Volume Laterality Blood (Blood, 08/10/2020 12:09 08/10/2020 Venous) PM CDT 12:12 PM CDT Aleisha Gonzales M.D. LAB BLOOD ADD-ON Performing Organization Address City/State/ZIP Code Phon e Number [address] [address] [place] [address] System in [place] [address] [address] Pernicious Anemia [place] (08/10/2020 12:09 PM CDT) P athologist Signature Vitamin B12 260 180 - 914 08/11/2020 [facility] Assay, S ng/L 11:29 AM CDT Comment: B-12 <400; MMA test was perform ed. Specimen Anatomical Collection Method Collection Time Receive d Time (Source) Location / / Volume Laterality Blood (Blood, 08/10/2020 12:09 08/11/2020 9:34 Venous) PM CDT AM CDT Aleisha Gonzales M.D. LAB BLOOD NON ADD-ON Performing Organization Address City/State/ZIP Code Phon e Number [facility] [address] [place], [place] [address] [facility] [place] [address] Laboratory Medicine and Pathology [address] [place] (ABNORMAL) Basic Metabolic Panel (08/10/2020 12:09 PM CDT) Analysis Performed At Patho logist Time Signature Potassium, P 3.8 3.6 - 5.2 08/10/2020 [facility] mmol/L 12:30 PM CDT Sodium, P 142 135 - 145 08/10/2020 [facility] mmol/L 12:30 PM CDT Chloride, P 107 98 - 107 08/10/2020 [facility] mmol/L 12:30 PM CDT Bicarbonate, P 25 22 - 29 08/10/2020 [facility] mmol/L 12:30 PM CDT Anion Gap, P 10 7 - 15 08/10/2020 [facility] 12:30 PM CDT BUN (Blood Urea 25 (H) 6 - 21 08/10/2020 [facility] Nitrogen), P mg/dL 12:30 PM CDT Creatinine 1.16 (H) 0.59 - 08/10/2020 [facility] 1.04 mg/dL 12:30 PM CDT eGFR-Black/Afri 50 (L) >=60 08/10/2020 [facility] can [place] mL/min/BSA 12:30 PM CDT Comment: ----ADDITIONAL INFORMATION---- Estimated GFR calculated using the 2009 CKD_EPI creatinine equation. eGFR Non-Black/ 43 (L) >=60 mL/min/BSA 08/10/2020 12:30 PM CDT [facility] [place] Comment: ----ADDITIONAL INFORMATION---- Estimated GFR calculated using the 2009 CKD_EPI creatinine equation. Calcium, Total, P 9.2 8.8 - 10.2 mg/dL 08/10/2020 12:3 0 PM CDT [facility] Glucose, P 94 70 - 140 mg/dL 08/10/2020 12:30 PM CDT [facility] Specimen Anatomical Collection Method Collection Time Receive d Time (Source) Location / / Volume Laterality Blood (Blood, 08/10/2020 12:09 08/10/2020 Venous) PM CDT 12:12 PM CDT Aleisha Gonzales M.D. LAB BLOOD ADD-ON Performing Organization Address City/State/ZIP Code Phon e Number [facility]- [address] [place] [address] [place] [address] System in [address] documented in this encounter Visit Diagnoses Diagnosis Dementia (HCC) - Primary Hypertension Essential Primary Gout Anxiety Regurgitation Aortic Cerumen Impacted Right documented in this encounter Care Teams Assembler Engine Relationship Specialty Start Date End Date Aleisha Hermosillo M.D. PCP - General 08/18/[address] [place] [phone] documented as of this encounter
--- OUTSIDE RECORDS SUMMARY | 2022-01-04 09:34 | XMS_ITS | Encounter Summary ---
:1935 Author Organization [facility] Address [address] [place] [address] Care Team Providers Name Role Phone Aleisha Hermosillo M.D. Primary Care Provider [phone] Reason for Visit Reason Comments Med Refill Encounter Details Date Type Department Care Team Description 06/14/2019 Refill Department of [facility] Stephany Hermosillo Med Refill Medicine, [place] [facility], in [address] [address] [place], [place] [address] [phone] Social History Tobacco Use Types Packs/Day Years [...] on filedocumented in this encounter Care Teams Hammer Repairer Relationship Specialty Start Date End Date Aleisha Hermosillo M.D. PCP - General 08/18/[address] [place] [phone] documented as of this encounter
--- OUTSIDE RECORDS SUMMARY | 2022-01-04 09:34 | XMS_ITS | Encounter Summary ---
:1935 Author Organization [facility] Address [address] [place] [address] Care Team Providers Name Role Phone Aleisha Hermosillo M.D. Primary Care Provider [phone] Reason for Visit Reason Comments Med Refill Encounter Details Date Type Department Care Team Description 04/01/2019 Refill Department of [facility] Stephany Hermosillo Med Refill Medicine, [place] [facility], in [address] [address] [place], [place] [address] [phone] Social History Tobacco Use Types Packs/Day Years [...] on filedocumented in this encounter Care Teams Automobile Repossessor Relationship Specialty Start Date End Date Aleisha Hermosillo M.D. PCP - General 08/18/[address] [place] [phone] documented as of this encounter
--- OUTSIDE RECORDS SUMMARY | 2022-01-04 09:34 | XMS_ITS | Encounter Summary ---
:1935 Author Organization [facility] Address [address] [place] [address] Care Team Providers Name Role Phone Aleisha Hermosillo M.D. Primary Care Provider [phone] Reason for Visit Reason Comments Med Refill Encounter Details Date Type Department Care Team Description 04/02/2020 Refill Department of [facility] Stephany Hermosillo Med Refill Medicine, [place] Juwan Rust [facility], in [address] [address] [place], [place] [address] [phone] Social History Tobacco Use Types Packs/Day Years [...] filedocumented in this encounter Care Teams Manager Security And Safety Relationship Specialty Start Date End Date Aleisha Hermosillo M.D. PCP - General 08/18/[address] [place] [phone] documented as of this encounter
--- OUTSIDE RECORDS SUMMARY | 2022-01-04 09:34 | XMS_ITS | Encounter Summary ---
:1935 Author Organization [facility] Address [address] [place] [address] Care Team Providers Name Role Phone Aleisha Hermosillo M.D. Primary Care Provider [phone] Reason for Referral Specialty Diagnoses / Procedures Referred By Contact Refer red To Contact [place] [address] [place] [address] Referral ID Status Reason Start Date Expiration Date Visits Requ ested Visits Authorized BREWER Encounter Details Date Type Department Care Team Description 05/14/2020 Immunization Department of [facility] unter For COVID-19 Medicine, [facility] Juwan Vaccine Immunization [facility] [place], [address] (Primary Dx) [facility] in [address] [phone] [facility] [address] (Work) [place], [place] [phone] [address] (Fax) [phone] Social History Tobacco Use Types Packs/Day Years Used Date Smoking Tobacco: Never Smokeless Tobacco: Never Alcohol Use Standard Drinks/Week Comments No 0 (1 standard drink = 0.6 oz pure alcoho l) Sex Assigned at Date Recorded Not on file documented as of this encounter Plan of Treatment Scheduled Referrals Name Type Priority Associated Diagnoses Order S chedule Covid immunization Outpatient Referral Routine Encounter For E xpected: office visit COVID-19 Vaccine 06/04/2020, Subsequent; 21 days Immunization Expires: 05/15/2023 documented as of this encounter Visit Diagnoses Diagnosis Encounter For COVID-19 Vaccine Immunizat ion - Primary documented in this encounter Care Teams Oracle Drm Consultant Relationship Specialty Start Date End Date Aleisha Hermosillo M.D. PCP - General 08/18/[address] [place] [phone] documented as of this encounter
--- OUTSIDE RECORDS SUMMARY | 2022-01-04 09:34 | XMS_ITS | Encounter Summary ---
:1935 Author Organization [facility] Address [address] [place] [address] Support Name Relationship Address Phone Rickey Duenas Spouse [address] [facility] [place] [address] Beto Duenas Child [address] [facility] [phone] [place] [address] Care Team Providers Name Role Phone Aleisha Hermosillo M.D. Primary Care Provider [phone] Encounter Details Date Type Department Care Team Description 02/04/2019 Hospital Encounter Department of Whit Singh NOS; Laboratory Medicine Juwan Baron Hypertension Essential Primary; in [place], [address] [facility] Gout [place] [address] [address] [place], [place] [phone] (Work) [phone] Social History Tobacco Use Types Packs/Day Years Used Date Smoking Tobacco: Never Smokeless Tobacco: Never Alcohol Use Standard Drinks/Week Comments No 0 (1 standard drink = 0.6 oz pure alcoho l) Sex Assigned at Date Recorded Not on file documented as of this encounter Medications at Time of Discharge Medication Sig Dispensed Refills Start Date End Date COLCRYS 0.6 mg tablet TAKE 2 TABLETS AT 10 tablet 3 019 FIRST SIGN OF GOUT FLARE, FOLLOWED BY 1 TABLET ONE HOUR LATER(MAX OF 3 TABLETS PER ATTACK) DO NOT REPEAT FOR 3 DAYS allopurinol (ZYLOPRIM) TAKE TWO TABLETS BY 180 tablet 3 11/0608/05/2019 100 mg tablet MOUTH EVERY DAY chlorthalidone (HYGROTEN) Take 1 tablet (25 90 tablet 3 06/14/2019 25 mg tablet mg total) by mouth daily. donepezil (ARICEPT) 10 mg TAKE ONE TABLET BY 90 tablet 3 04/02/2019 tablet MOUTH AT BEDTIME FOR MEMORY losartan (COZAAR) 100 mg Take 1 tablet (100 90 tablet 3 04/02/2020 tablet mg total) by mouth at bedtime. for blood pressure metoprolol tartrate TAKE ONE TABLET BY 180 tablet 3 01/27/20 19 01/10/2020 (LOPRESSOR) 25 mg tablet MOUTH TWICE A DAY sertraline (ZOLOFT) 50 mg Take 1 tablet (50 90 tablet 3 03/13/2020 tablet mg total) by mouth at bedtime. documented as of this encounter Plan of Treatment Not on filedocumented as of this encounter Procedures Procedure Name Priority Date/Time Associated Comments Diagnosis URIC ACID, S/P Routine 02/04/2019 3:37 Gout Results fo r this PM MEAT TRIMMER procedure are i n the results section. ASPARTATE Routine 02/04/2019 3:37 Hypertension NOS Results for this AMINOTRANSFERASE (AST), PM MEAT TRIMMER proc edure are in S/P the results section. ALKALINE PHOSPHATASE, Routine 02/04/2019 3:37 Hypertension NOS Results for this S/P PM MEAT TRIMMER procedure are i n the results section. BASIC METABOLIC PANEL, Routine 02/04/2019 3:37 Hypertension Re sults for this S/P PM MEAT TRIMMER Essential Primary procedure are in the results section. documented in this encounter Results Uric Acid (02/04/2019 3:37 PM MEAT TRIMMER) P athologist Signature Uric Acid, S 3.9 2.7 - 6.1 02/04/2019 CNFL mg/dL 4:21 PM MEAT TRIMMER Specimen Anatomical Collection Method Collection Time Receive d Time (Source) Location / / Volume Laterality Blood (Blood, 02/04/2019 3:37 PM 02/05/20 3:39 Venous) MEAT TRIMMER PM MEAT TRIMMER Aleisha Gonzales M.D. LAB BLOOD ADD-ON Performing Organization Address City/State/ZIP Code Phon e Number [facility]- [address] [place] [address] [place] [address] System [address] (ABNORMAL) Basic Metabolic Panel (02/04/2019 3:37 PM MEAT TRIMMER) Analysis Performed At Patho logist Time Signature Potassium, S 3.9 3.6 - 5.2 02/04/2019 CNFL mmol/L 4:21 PM MEAT TRIMMER Sodium, S 144 135 - 145 02/04/2019 CNFL mmol/L 4:21 PM MEAT TRIMMER Chloride, S 106 98 - 107 02/04/2019 CNFL mmol/L 4:21 PM MEAT TRIMMER Bicarbonate, S 27 22 - 29 02/04/2019 CNFL mmol/L 4:21 PM MEAT TRIMMER Anion Gap 11 7 - 15 02/04/2019 CNFL 4:21 PM MEAT TRIMMER BUN (Blood Urea 23 (H) 6 - 21 02/04/2019 CNFL Nitrogen), S mg/dL 4:21 PM MEAT TRIMMER Creatinine 1.20 (H) 0.59 - 02/04/2019 CNFL 1.04 mg/dL 4:21 PM MEAT TRIMMER eGFR-Non 42 (L) >=60 02/04/2019 CNFL Black/ mL/min/BSA 4:21 PM MEAT TRIMMER Samoan Comment: ----ADDITIONAL INFORMATION---- Estimated GFR calculated using the 2009 CKD_EPI creatinine equation. eGFR-Black/ 48 (L) >=60 mL/min/BSA 2018 4:21 PM MEAT TRIMMER CNFL Comment: ----ADDITIONAL INFORMATION---- Estimated GFR calculated using the 2009 CKD_EPI creatinine equation. Calcium, Total, S 9.6 8.8 - 10.2 mg/dL 02/04/2019 4:21 PM MEAT TRIMMER CNFL Glucose, S 109 70 - 140 mg/dL 02/04/2019 4:21 PM MEAT TRIMMER C NFL Specimen Anatomical Collection Method Collection Time Receive d Time (Source) Location / / Volume Laterality Blood (Blood, 02/04/2019 3:37 PM 02/05/20 19 3:39 Venous) MEAT TRIMMER PM MEAT TRIMMER Aleisha Gonzales M.D. LAB BLOOD ADD-ON Performing Organization Address City/State/ZIP Code Phon e Number [facility]- [address] [place] [address] [place] [address] [place] [address] System in [place] [address] [address] AST (Aspartate Aminotransferase) (02/04/2019 3:37 PM MEAT TRIMMER) Patholo gist Method Time Signature Aspartate 26 8 - 43 02/04/2019 CNFL Aminotransferase U/L 4:21 PM MEAT TRIMMER (AST), S Specimen Anatomical Collection Method Collection Time Receive d Time (Source) Location / / Volume Laterality Blood 02/04/2019 3:37 PM 9 3:39 MEAT TRIMMER PM MEAT TRIMMER Whit Singh M.D. LAB BLOOD ADD-ON Performing Organization Address City/State/ZIP Code Phon e Number [address] [address] [place] [address] System in [address] Alkaline Phosphatase (02/04/2019 3:37 PM MEAT TRIMMER) P athologist Signature Alkaline 100 35 - 104 02/04/2019 CNFL Phosphatase, S U/L 4:21 PM MEAT TRIMMER Specimen Anatomical Collection Method Collection Time Receive d Time (Source) Location / / Volume Laterality Blood 02/04/2019 3:37 PM 9 3:39 MEAT TRIMMER PM MEAT TRIMMER Whit Singh M.D. LAB BLOOD ADD-ON Performing Organization Address City/[facility]/ZIP Code Phon e Number [address] [address] [place] [address] System in [address] documented in this encounter Visit Diagnoses Diagnosis Hypertension Essential Primary Gout documented in this encounter Care Teams Electric Power Line Repairer Relationship Specialty Start Date End Date Aleisha Hermosillo M.D. PCP - General 08/18/[address] [place] [address] documented as of this encounter
--- OUTSIDE RECORDS SUMMARY | 2022-01-04 09:34 | XMS_ITS | Encounter Summary ---
:1935 Author Organization [facility] Address [address] [place] [address] Care Team Providers Name Role Phone Aleisha Hermosillo M.D. Primary Care Provider [phone] Reason for Visit Reason Comments Med Refill Encounter Details Date Type Department Care Team Description 07/26/2020 Refill Department of [facility] Stephany Hermosillo Med Refill Medicine, [place] Juwan Rust [facility], in [address] [address] [place], [place] [address] [phone] Social History Tobacco Use Types Packs/Day Years [...] on filedocumented in this encounter Care Teams Biosecurity Officer Relationship Specialty Start Date End Date Aleisha Hermosillo M.D. PCP - General 08/18/[address] [place] [phone] documented as of this encounter
--- OUTSIDE RECORDS SUMMARY | 2022-01-04 09:34 | XMS_ITS | Encounter Summary ---
:1935 Author Organization [facility] Address [address] [place] [address] Care Team Providers Name Role Phone Aleisha Hermosillo M.D. Primary Care Provider [phone] Reason for Visit Reason Comments Med Refill Encounter Details Date Type Department Care Team Description 09/05/2019 Refill Department of [facility] Stephany Hermosillo Med Refill Medicine, [place] [facility], in [place] [id number] [place], [place] [address] [phone] Social History Tobacco Use Types Packs/Day Years Used Date Smoking Tobacco: Never Smokeless Tobacco: Never Alcohol Use Standard Drinks/Week Comments No 0 (1 standard drink = 0.6 oz pure alcoho l) Sex Assigned at Date Recorded Not on file documented as of this encounter Miscellaneous Notes Telephone Encounter - Yusra Jaquez R.N. - 09/05/2019 3:06 PM CDT LV 01/21/19 LF 01/21/19 qty 90 refills 3-pt should not need a new Rx VM left at pharmacy VM that a refill should not be needed due to the above information. Requested return call with questions/concerns. Telephone Encounter - Nazia Cool - 09/05/2019 2:53 PM CDT Nurse review: Unable to forward request to provider; Discrepancy in directions (when to take med) Primary Provider: Aleisha Gonzales M.D. Name of medication: Losartan potassium Strength: 100 mg tabs Frequency: take one tablet by mouth every day for blood pressure Quantity: 90 Refills: 3 Last Refill: 06/14/19 Pharmacy: [facility] documented in this encounter Plan of Treatment Not on filedocumented as of this encounter Visit Diagnoses Not on filedocumented in this encounter Care Teams Senior Qualitative Researcher Relationship Specialty Start Date End Date Aleisha Hermosillo M.D. PCP - General 08/18/[address] [place] [phone] documented as of this encounter
--- OUTSIDE RECORDS SUMMARY | 2022-01-04 09:34 | XMS_ITS | Encounter Summary ---
:1935 Author Organization [facility] Address [address] [place] [address] Care Team Providers Name Role Phone Aleisha Hermosillo M.D. Primary Care Provider [phone] Reason for Visit Reason Comments Med Refill Encounter Details Date Type Department Care Team Description 03/14/2019 Refill Department of [facility] Stephany Hermosillo Med Refill Medicine, [place] Juwan Rust [facility], in [place] [id number] [place], [place] [address] [phone] Social History Tobacco Use Types Packs/Day Years Used Date Smoking Tobacco: Never Smokeless Tobacco: Never Alcohol Use Standard Drinks/Week Comments No 0 (1 standard drink = 0.6 oz pure alcoho l) Sex Assigned at Date Recorded Not on file documented as of this encounter Miscellaneous Notes Telephone Encounter - Francheska Hawkins - 03/14/2019 12:18 PM CST Patient should have refills remaining B THERAPIST documented in this encounter Plan of Treatment Not on filedocumented as of this encounter Visit Diagnoses Not on filedocumented in this encounter Care Teams Dot Etcher Apprentice Relationship Specialty Start Date End Date Aleisha Hermosillo M.D. PCP - General 08/18/[address] [phone] documented as of this encounter
--- OUTSIDE RECORDS SUMMARY | 2022-01-04 09:34 | XMS_ITS | Encounter Summary ---
:1935 Author Organization [facility] Address [address] [place] [address] Care Team Providers Name Role Phone Aleisha Hermosillo M.D. Primary Care Provider [phone] Reason for Visit Reason Comments Med Refill Encounter Details Date Type Department Care Team Description 08/04/2019 Refill Department of [facility] Stephany Hermosillo Med Refill Medicine, [place] [facility], in [address] [address] [place], [place] [address] [phone] Social History Tobacco Use Types Packs/Day Years [...] on filedocumented in this encounter Care Teams Braid Pattern Setter Relationship Specialty Start Date End Date Aleisha Hermosillo M.D. PCP - General 08/18/[address] [place] [phone] documented as of this encounter
--- OUTSIDE RECORDS SUMMARY | 2022-01-04 09:34 | XMS_ITS | Encounter Summary ---
:1935 Author Organization [facility] Address [address] [place] [address] Care Team Providers Name Role Phone Aleisha Hermosillo M.D. Primary Care Provider [phone] Reason for Visit Reason Comments Med Refill Encounter Details Date Type Department Care Team Description 04/24/2020 Refill Department of [facility] Stephany Hermosillo Med Refill Medicine, [place] Juwan Rust [facility], in [address] [address] [place], [place] [address] [phone] Social History Tobacco Use Types Packs/Day Years [...] on filedocumented in this encounter Care Teams Computer Graphic Designer Relationship Specialty Start Date End Date Aleisha Hermosillo M.D. PCP - General 08/18/[address] [place] [phone] documented as of this encounter
--- OUTSIDE RECORDS SUMMARY | 2022-01-04 09:34 | XMS_ITS | Encounter Summary ---
:1935 Author Organization [facility] Address [address] [place] [address] Care Team Providers Name Role Phone Aleisha Hermosillo M.D. Primary Care Provider [phone] Reason for Visit Reason Comments Med Refill Encounter Details Date Type Department Care Team Description 07/02/2020 Refill Department of [facility] Stephany Hermosillo Med Refill Medicine, [place] Juwan Rust [facility], in [address] [address] [place], [place] [address] [phone] Social History Tobacco Use Types Packs/Day Years [...] on filedocumented in this encounter Care Teams Dye House Supervisor Relationship Specialty Start Date End Date Aleisha Hermosillo M.D. PCP - General 08/18/[address] [place] [phone] documented as of this encounter
--- OUTSIDE RECORDS SUMMARY | 2022-01-04 09:34 | XMS_ITS | Encounter Summary ---
:1935 Author Organization [facility] Address [address] [place] [address] Care Team Providers Name Role Phone Aleisha Hermosillo M.D. Primary Care Provider [phone] Reason for Visit Reason Comments Med Refill Encounter Details Date Type Department Care Team Description 06/05/2020 Refill Department of [facility] Stephany Hermosillo Med Refill Medicine, [place] Juwan Rust [facility], in [address] [address] [place], [place] [address] [phone] Social History Tobacco Use Types Packs/Day Years [...] filedocumented in this encounter Care Teams Dot Compliance Specialist Relationship Specialty Start Date End Date Aleisha Hermosillo M.D. PCP - General 08/18/[address] [place] [phone] documented as of this encounter
--- OUTSIDE RECORDS SUMMARY | 2022-01-04 09:34 | XMS_ITS | Encounter Summary ---
:1935 Author Organization [facility] Address [address] [place] [address] Care Team Providers Name Role Phone Aleisha Hermosillo M.D. Primary Care Provider [phone] Reason for Visit Reason Comments Med Refill Encounter Details Date Type Department Care Team Description 03/13/2020 Refill Department of [facility] Stephany Hermosillo Med Refill Medicine, [place] Juwan Rust [facility], in [address] [address] [place], [place] [address] [phone] Social History Tobacco Use Types Packs/Day Years [...] on filedocumented in this encounter Care Teams Director Of Recruiting Relationship Specialty Start Date End Date lAeisha Hermosillo M.D. PCP - General 08/18/[address] [place] [phone] documented as of this encounter
--- OUTSIDE RECORDS SUMMARY | 2022-01-04 09:34 | XMS_ITS | Encounter Summary ---
:1935 Author Organization [facility] Address [address] [place] [address] Care Team Providers Name Role Phone Aleisha Hermosillo M.D. Primary Care Provider [phone] Reason for Referral Specialty Diagnoses / Procedures Referred By Contact Refer red To Contact Leta Gomes M.D. [facility] Region [address] [place] [address] Referral ID Status Reason Start Date Expiration Date Visits Requ ested Visits Authorized RINARIAN HELPER Encounter Details Date Type Department Care Team Description 03/31/2020 Orders Only [facility] jeremy Gomes M.[facility]. [address] [place], [place] [phone] (Wo rk) Social History [...] Outpatient Referral Routine Ex pected: office visit Initial 021 (Approximate), Expires: 03/31/2021 documented as of this encounter Visit Diagnoses Not on filedocumented in this encounter Care Teams Key Holder Relationship Specialty Start Date End Date Aleisha Hermosillo M.D. PCP - General 08/18/[address] [place] [phone] documented as of this encounter
--- OUTSIDE RECORDS SUMMARY | 2022-01-04 09:34 | XMS_ITS | Encounter Summary ---
:1935 Author Organization [facility] Address [address] [place] [address] Care Team Providers Name Role Phone Aleisha Hermosillo M.D. Primary Care Provider [phone] Encounter Details Date Type Department Care Team Description 06/22/2020 Immunization Department of [facility] Hemanth Lion For COVID-19 Medicine, [place] Juwan [facility] Vaccine Immunization Professional Building, [address] [place], [place] [address] [place] [address] [address] [address] [place] [address] [phone] Social History Tobacco Use Types Packs/Day Years Used Date Smoking Tobacco: Never Smokeless Tobacco: Never Alcohol Use Standard Drinks/Week Comments No 0 (1 standard drink = 0.6 oz pure alcoho l) Sex Assigned at Date Recorded Not on file documented as of this encounter Plan of Treatment Not on filedocumented as of this encounter Visit Diagnoses Diagnosis Encounter For COVID-19 Vaccine Immunizat ion documented in this encounter Care Teams Clinical Laboratory Service Teacher Relationship Specialty Start Date End Date Aleisha Hermosillo M.D. PCP - General 08/18/[address] [place] [phone] documented as of this encounter
--- OUTSIDE RECORDS SUMMARY | 2022-01-04 09:34 | XMS_ITS | Encounter Summary ---
:1935 Author Organization [facility] Address [address] [place] [address] Care Team Providers Name Role Phone Aleisha Hermosillo M.D. Primary Care Provider [phone] Reason for Visit Reason Comments Med Refill Encounter Details Date Type Department Care Team Description 01/10/2020 Refill Department of [facility] Stephany Hermosillo Med Refill Medicine, [place] [facility], in [address] [address] [place], [place] [address] [phone] Social History Tobacco Use Types Packs/Day Years [...] on filedocumented in this encounter Care Teams English Adjunct Faculty Relationship Specialty Start Date End Date Aleisha Hermosillo M.D. PCP - General 08/18/[address] [place] [phone] documented as of this encounter
--- OUTSIDE RECORDS SUMMARY | 2022-01-04 09:35 | XMS_ITS | Encounter Summary ---
:1935 Author Organization [facility] Address [address] [place] [address] Care Team Providers Name Role Phone Aleisha Hermosillo M.D. Primary Care Provider [phone] Encounter Details Date Type Department Care Team Description 12/10/2018 Hospital Encounter Department of Whit Singh Acquired Aortic Valve Radiology in Keith Baron M.D. [place], [place] [address] [phone] Social History Tobacco Use Types Packs/Day Years [...] TAKE TWO TABLETS BY 180 tablet 3 0203/201801/21/2019 100 mg tablet MOUTH EVERY DAY allopurinol (ZYLOPRIM) TAKE TWO TABLETS BY 180 tablet 3 03/201801/21/2019 100 mg tablet MOUTH EVERY DAY allopurinol (ZYLOPRIM) TAKE TWO TABLETS BY 180 tablet 3 07/201801/21/2019 100 mg tablet MOUTH EVERY DAY allopurinol (ZYLOPRIM) TAKE TWO TABLETS BY 180 tablet 3 11/0401/21/2019 100 mg tablet MOUTH EVERY DAY allopurinol (ZYLOPRIM) TAKE TWO TABLETS BY 180 tablet 3 11/0608/05/2019 100 mg tablet MOUTH EVERY DAY aspirin [address] tablet Take 1 tablet by 0 201401/21/2019 mouth daily. CALCIUM CARB/VIT Take by mouth 0 11/09/201001/21 D3/MINERALS daily. (CALCIUM-VITAMIN D ORAL) chlorthalidone (HYGROTEN) Take 1 tablet (25 90 tablet 3 06/14/2019 25 mg tablet mg total) by mouth daily. donepezil (ARICEPT) 10 mg TAKE ONE TABLET BY 90 tablet 3 12/25/2018 tablet MOUTH AT BEDTIME FOR MEMORY donepezil (ARICEPT) 5 mg TAKE ONE TABLET BY 90 tablet 3 01/21/2019 tablet MOUTH AT BEDTIME FOR MEMORY furosemide (LASIX) 20 mg TAKE ONE TABLET BY 90 tablet 3 01/21/2019 tablet MOUTH EVERY DAY ( WATER PILL) losartan (COZAAR) 100 mg TAKE ONE TABLET BY 90 tablet 3 07/201801/21/2019 tablet MOUTH EVERY DAY FOR BLOOD PRESSURE losartan (COZAAR) 100 mg TAKE ONE TABLET BY 90 tablet 3 10/201801/21/2019 tablet MOUTH EVERY DAY FOR BLOOD PRESSURE memantine 21 mg Take 1 capsule (21 90 capsule 3 05/30/201803/23/2018 capsule,sprinkle,ER 24hr mg total) by mouth daily. metoprolol tartrate Take 1 tablet (25 180 tablet 3 8 01/25/2019 (LOPRESSOR) 25 mg tablet mg total) by mouth 2 (two) times a day. metoprolol tartrate TAKE ONE TABLET BY 180 tablet 3 01/05/20 18 01/21/2019 (LOPRESSOR) 50 mg tablet MOUTH TWICE A DAY FOR BLOOD PRESSURE/HEART potassium chloride TAKE ONE TABLET BY 180 tablet 3 9 01/21/2019 (KLOR-CON M) 10 mEq ER MOUTH TWICE A DAY tablet sertraline (ZOLOFT) 50 mg TAKE ONE TABLET BY 90 tablet 3 01/21/2019 tablet MOUTH EVERY DAY documented as of this encounter Plan of Treatment Not on filedocumented as of this encounter Procedures Procedure Name Priority Date/Time Associated Diagnosis Comme nts (TTE) 2D ECHO Routine 12/10/2018 11:08 AM Acquired Aortic Resu lts for this DOPPLER COLOR CDT Valve Disorder procedure ar e in the results section. documented in this encounter Results (TTE) 2D ECHO DOPPLER COLOR (12/10/2018 11:08 AM CDT) [facility] Method Time Signature Ejection Fraction 63 MC CV EIMS Sinus of Valsalva 34 MC CV EIMS Proximal Ascending 34 MC CV EIMS Aorta Mid-Ascending Aorta 34 MC CV EIMS LV Mass Index 132 MC CV EIMS LV End-Diastolic 60 MC CV EIMS Diameter LV End-Systolic 39 MC CV EIMS Diameter LV End-Diastolic 98 MC CV EIMS Volume LV End-Systolic 36 MC CV EIMS Volume MV E Velocity 0.5 MC CV EIMS MV A Velocity 0.9 MC CV EIMS MV E/A 0.56 MC CV EIMS MV e' Velocity 0.04 MC CV EIMS Medial MV e' Velocity 0.06 MC CV EIMS Lateral MV E/e' Medial 12.5 MC CV EIMS MV E/e' Lateral 8.3 MC CV EIMS Left ventricular 73 MC CV EIMS stroke volume index Cardiac Output 7.51 MC CV EIMS Cardiac Index 4.61 MC CV EIMS LV Interventricular 8 MC CV EIMS Septal Wall Thickness LV Posterior Wall 10 MC CV EIMS Thickness LV Relative Wall 33 MC CV EIMS Thickness Tricuspid Annular S? 0.15 MC CV EIMS RA Pressure 5 MC CV EIMS AV mean gradient 17 MC CV EIMS Aortic valve area 2.17 MC CV EIMS Aortic Valve Area 1.33 MC CV EIMS Index Aortic Valve 0.52 MC CV EIMS Dimensionless Index AV regurgitant 49 MC CV EIMS volume LA Volume Index 23 MC CV EIMS Anatomical Region Laterality Modality Echocardiography Specimen (Source) Anatomical Collection Method Collection Time Re ceived Time Location / / Volume Laterality 12/10/2018 9:58 AM CDT Impressions 12/10/2018 4:17 PM CDT Transthoracic outreach echo interpretation. ??LEFT VENTRICLE: ??Moderate left ventricular enlargement. ??Normal left ventricular w all thickness. ??Calculated 2-D biplane volumetric left ventricular ejection fraction 63 %. ??No regional wall motion abnormalities. ??Grade 1/4 left ventricular diastolic dysfunction, consi stent with low to normal left ventricular filling pressure. ??RIGHT VENTRICLE: ??Normal ri ght ventricular size. ??Normal right ventricular systolic function. ??Unable to detect peak tricus pid regurgitation velocity for pulmonary artery systolic pressure calculation. ??ATRIA: ??Normal left atrial size. ??Left atrial volume index 23 ml/m^2. Normal right atrial size. ??CARDIAC VALV ES: ??Trileaflet aortic valve. ??Mild calcific aortic valve stenosis. ??Aortic valve systolic mean Doppler gradient 17 mmHg. ??Moderate-severe aortic valve regurgitation. ??Aortic regurgitan t volume (PISA) 49 ml. ??Aortic regurgitation ERO (PISA) 0.22 cm^2. ??Sclerotic mitral valve. ??C alcified mitral annulus. ??Trivial mitral valve regurgitation. ??Normal pulmonary valve. ??Normal pulmonary valve systolic velocity. ??Trivial pulmonary valve regurgitation. ??Normal tricuspid valve. ??Trivial tricuspid valve regurgitation. OTHER ECHO FINDINGS: ??Normal inferior vena cava size with normal inspiratory collapse (>50%). Normal ascending aorta dimension. ??Norm al aortic sinus of Valsalva. ??Abdominal aorta incompletely visualized. ??Normal abdomi nal aorta Doppler flow pattern. ??No atrial level shunt by color flow imaging. ??No intracardiac mass or thrombus, but the left atrial appendage cannot be visualized adequately with transthora cic echo to exclude thrombus in this location. ??No pericardial effusion. For the complete report, see the [facility] Documents below. See PDF For Result Narrative 12/10/2018 4:17 PM CDT For the complete report, see the [facility] Documents below. Final Impressions 1. Trileaflet aortic valve. ??Moderate t o severe aortic regurgitation. 2. Aortic regurgitant volume (PISA) 49 m l. ??Holodiastolic reversals in the descending thoracic aorta. Pressure half-time 381 msec. 3. Moderate left ventricular enlargement (end-diastolic dimension 60 mm). Calculated ejection fraction 63%. No regional wall motion ab normalities. 4. Normal right ventricular size and sys tolic function. 5. Normal ascending aorta dimension. 6. Normal inferior vena cava size with n ormal inspiratory collapse (>50%). 7. Compared to the report of 05/04/2017 no significant change has occurred. Side by side comparison of images performed. Procedure Note Nazario Crowell M.D. - 12/10/2018Form atting of this note might be different from the original. For the complete report, see the [facility] Documents below. Final Impressions 1. Trileaflet aortic valve. Moderate to severe aortic regurgitation. 2. Aortic regurgitant volume (PISA) 49 m l. Holodiastolic reversals in the descending thoracic aorta. Pressure half-time 381 msec. 3. Moderate left ventricular enlargement (end-diastolic dimension 60 mm). Calculated ejection fraction 63%. No regional wall motion ab normalities. 4. Normal right ventricular size and sys tolic function. 5. Normal ascending aorta dimension. 6. Normal inferior vena cava size with n ormal inspiratory collapse (>50%). 7. Compared to the report of 05/04/2017 no significant change has occurred. Side by side comparison of images performed. Findings Transthoracic outreach echo interpretati on. LEFT VENTRICLE: Moderate left ventricular enlargement. Normal left ventricular wal l thickness. Calculated 2-D biplane volumetric left ventricular ejection fraction 63 %. No r egional wall motion abnormalities. Grade 1/4 left ventricular diastolic dysfunction, consi stent with low to normal left ventricular filling pressure. RIGHT VENTRICLE: Normal right ventricular size. Normal right ventricular systolic function. Unable to detect peak tricuspi d regurgitation velocity for pulmonary artery systolic pressure calculation. ATRIA: Normal left atrial size. Left atrial volume index 23 ml/m^2. Normal right atrial size. CARDIAC VALVES : Trileaflet aortic valve. Mild calcific aortic valve stenosis. Aortic valve systolic me an Doppler gradient 17 mmHg. Moderate- severe aortic valve regurgitation. Aortic regurgitant volume (PISA) 49 ml. Aortic regurgitation ERO (PISA) 0.22 cm^2. Sclerotic mitral valve. Calci fied mitral annulus. Trivial mitral valve regurgitation. Normal pulmonary valve. N ormal pulmonary valve systolic velocity. Trivial pulmonary valve regurgitation. Normal tr icuspid valve. Trivial tricuspid valve regurgitation. OTHER ECHO FINDINGS: Normal inferior ve na cava size with normal inspiratory collapse (>50%). Normal ascending aorta dimension. Normal aortic sinus of Valsalva. Abdominal aorta incompletely visualized. Normal abdomina l aorta Doppler flow pattern. No atrial level shunt by color flow imaging. No intracardiac m ass or thrombus, but the left atrial appendage cannot be visualized adequately with transthora cic echo to exclude thrombus in this location. No pericardial effusion. For the complete report, see the [facility] Documents below. See PDF For Result Whit Singh M.D. CV ECHO PROCEDURES documented in this encounter Visit Diagnoses Diagnosis Acquired Aortic Valve Disorder documented in this encounter Care Teams Dish Technician Relationship Specialty Start Date End Date Aleisha Hermosillo M.D. PCP - General 08/18/[address] [place] [phone] documented as of this encounter
--- OUTSIDE RECORDS SUMMARY | 2022-01-04 09:35 | XMS_ITS | Encounter Summary ---
:1935 Author Organization [facility] Address [address] [place] [address] Care Team Providers Name Role Phone Aleisha Hermosillo M.D. Primary Care Provider [phone] Reason for Visit Reason Comments Med Refill Encounter Details Date Type Department Care Team Description 10/31/2018 Refill Department of Stephany Mitchell Med Refill Medicine, [place] [facility], in [place] [phone] [place], [place] [address] [phone] Social History Tobacco Use Types Packs/Day Years Used Date Smoking Tobacco: Never Smokeless Tobacco: Never Alcohol Use Standard Drinks/Week Comments No 0 (1 standard drink = 0.6 oz pure alcoho l) Sex Assigned at Date Recorded Not on file documented as of this encounter Miscellaneous Notes Telephone Encounter - Kalyn Lala R.N. - 11/01/2018 9:24 AM CDT RN checked with [facility] pharmacy. [facility] pharmacy intern states that have received the allopurinol script from 10/08/2018. Telephone Encounter - Suha Mitchell - 11/01/2018 7:53 AM CDT Nurse review: Unable to pend medication sent via [employer]; Medication is on med list 3 times and recent RXs. [facility] continues to send refill requesst despite that they should have active RXs on file. Please advise pharmacy. Primary Provider: Aleisha Gonzales M.D. Name of medication: Allopurinol Pharmacy: [facility] documented in this encounter Plan of Treatment Not on filedocumented as of this encounter Visit Diagnoses Not on filedocumented in this encounter Care Teams Delivery Consultant Relationship Specialty Start Date End Date Aleisha Hermosillo M.D. PCP - General 08/18/[address] [place] [address] [place] [phone] documented as of this encounter
--- OUTSIDE RECORDS SUMMARY | 2022-01-04 09:35 | XMS_ITS | Encounter Summary ---
:1935 Author Organization [facility] Address [address] [place] [address] Care Team Providers Name Role Phone Aleisha Hermosillo M.D. Primary Care Provider [phone] Reason for Visit Reason Comments Med Refill Encounter Details Date Type Department Care Team Description 09/07/2018 Refill Department of [facility] Stephany Hermosillo Med Refill Medicine, [place] [facility], in [address] [address] [place], [place] [address] [phone] Social History Tobacco Use Types Packs/Day Years [...] on filedocumented in this encounter Care Teams Aircraft Ordnance Technician Relationship Specialty Start Date End Date Aleisha Hermosillo M.D. PCP - General 08/18/[address] [place] [phone] documented as of this encounter
--- OUTSIDE RECORDS SUMMARY | 2022-01-04 09:35 | XMS_ITS | Encounter Summary ---
:1935 Author Organization [facility] Address [address] [place] [address] Care Team Providers Name Role Phone Aleisha Hermosillo M.D. Primary Care Provider [phone] Reason for Visit Reason Comments Med Refill Encounter Details Date Type Department Care Team Description 08/03/2018 Refill Department of [facility] Stephany Hermosillo Med Refill Medicine, [place] [facility], in [place] [id number] [place], [place] [address] [phone] Social History Tobacco Use Types Packs/Day Years Used Date Smoking Tobacco: Never Smokeless Tobacco: Never Alcohol Use Standard Drinks/Week Comments No 0 (1 standard drink = 0.6 oz pure alcoho l) Sex Assigned at Date Recorded Not on file documented as of this encounter Miscellaneous Notes Telephone Encounter - Aleisha Hermosillo M.D. - 08/04/2018 7:02 AM CDT Rx filled. documented in this encounter Plan of Treatment Not on filedocumented as of this encounter Visit Diagnoses Not on filedocumented in this encounter Care Teams Puzzle Assembler Relationship Specialty Start Date End Date Aleisha Hermosillo M.D. PCP - General 08/18/[address] [place] [phone] documented as of this encounter
--- OUTSIDE RECORDS SUMMARY | 2022-01-04 09:35 | XMS_ITS | Encounter Summary ---
:1935 Author Organization [facility] Address [address] [place] [address] Care Team Providers Name Role Phone Aleisha Hermosillo M.D. Primary Care Provider [phone] Reason for Visit Reason Comments Med Refill Encounter Details Date Type Department Care Team Description 05/18/2018 Refill Department of [facility] Stephany Hermosillo Med Refill Medicine, [place] [facility], in [place] [phone] [place], [place] [address] [phone] Social History Tobacco Use Types Packs/Day Years Used Date Smoking Tobacco: Never Smokeless Tobacco: Never Alcohol Use Standard Drinks/Week Comments No 0 (1 standard drink = 0.6 oz pure alcoho l) Sex Assigned at Date Recorded Not on file documented as of this encounter Miscellaneous Notes Telephone Encounter - Suha Mitchell - 05/18/2018 9:29 AM CDT A one year RX (90 tabs and 3 refills) was e-scribed to [facility] [place] on 04/06/18. documented in this encounter Plan of Treatment Not on filedocumented as of this encounter Visit Diagnoses Not on filedocumented in this encounter Care Teams Wheel Blocker Relationship Specialty Start Date End Date Aleisha Hermosillo M.D. PCP - General 08/18/[address] [place] [phone] documented as of this encounter
--- OUTSIDE RECORDS SUMMARY | 2022-01-04 09:35 | XMS_ITS | Encounter Summary ---
:1935 Author Organization [facility] Address [address] [place] [address] Care Team Providers Name Role Phone Aleisha Hermosillo M.D. Primary Care Provider [phone] Reason for Visit Reason Comments Med Refill Encounter Details Date Type Department Care Team Description 10/06/2018 Refill Department of [facility] Stephany Hermosillo Med Refill Medicine, [place] [facility], in [place] [phone] [place], [place] [address] [phone] Social History Tobacco Use Types Packs/Day Years Used Date Smoking Tobacco: Never Smokeless Tobacco: Never Alcohol Use Standard Drinks/Week Comments No 0 (1 standard drink = 0.6 oz pure alcoho l) Sex Assigned at Date Recorded Not on file documented as of this encounter Miscellaneous Notes Telephone Encounter - Aleisha Hermosillo M.D. - 10/08/2018 12:34 PM CDT Rx filled. documented in this encounter Plan of Treatment Not on filedocumented as of this encounter Visit Diagnoses Not on filedocumented in this encounter Care Teams Cnc Service Engineer Relationship Specialty Start Date End Date Aleisha Hermosillo M.D. PCP - General 08/18/[address] [place] [phone] documented as of this encounter
--- OUTSIDE RECORDS SUMMARY | 2022-01-04 09:35 | XMS_ITS | Encounter Summary ---
:1935 Author Organization [facility] Address [address] [place] [address] Care Team Providers Name Role Phone Aleisha Hermosillo M.D. Primary Care Provider [phone] Reason for Visit Reason Comments Med Refill Aricept Encounter Details Date Type Department Care Team Description 01/22/2019 Refill Department of [facility] Stephany Hermosillo ed Refill (Aricept) Medicine, [place] Aleisha Rust M.D. [facility], [address] [address] [place], [place] [phone] (W ork) [address] [phone] Social History Tobacco Use Types Packs/Day Years Used Date Smoking Tobacco: Never Smokeless Tobacco: Never Alcohol Use Standard Drinks/Week Comments No 0 (1 standard drink = 0.6 oz pure alcoho l) Sex Assigned at Date Recorded Not on file documented as of this encounter Miscellaneous Notes Telephone Encounter - Clara Jackson R.N. - 01/23/2019 11:29 AM ASSOCIATE SPA DIRECTOR Updated pharmacy. CIATE SPA DIRECTOR Telephone Encounter - Aleisha Hermosillo M.D. - 01/22/2019 3:08 PM ASSOCIATE SPA DIRECTOR Patient is on Aricept 10mg daily and no longer on the 5mg. Aleisha Parmar CIATE SPA DIRECTOR Telephone Encounter - Jazzy Stearns L.P.N. - 01/22/2019 2:15 PM ASSOCIATE SPA DIRECTOR Appears medication discontinued on 01/21 for 5mg tab Donepezil (Aricept) . No mention in visit note of discontinuation of 10 mg tab. Please advise. CIATE SPA DIRECTOR Telephone Encounter - Lashae Nice - 01/22/2019 8:18 AM CST Images from the original note were not included. Nurse Review: Pharmacy Communication Provider: Aleisha Gonzales M.D. Medication: Donepezil (Aricept) Strength: 5 mg & 10 mg Frequency: Take one tablet by mouth at bedtime for memory Pharmacy: [facility] Comment: CIATE SPA DIRECTOR documented in this encounter Plan of Treatment Not on filedocumented as of this encounter Visit Diagnoses Not on filedocumented in this encounter Care Teams Quality Control Assessor Relationship Specialty Start Date End Date Aleisha Hermosillo M.D. PCP - General 08/18/[address] [place] [phone] documented as of this encounter
--- OUTSIDE RECORDS SUMMARY | 2022-01-04 09:35 | XMS_ITS | Encounter Summary ---
:1935 Author Organization [facility] Address [address] [place] [address] Care Team Providers Name Role Phone Aleisha Hermosillo M.D. Primary Care Provider [phone] Reason for Visit Reason Comments Med Refill Encounter Details Date Type Department Care Team Description 12/25/2018 Refill Department of [facility] Stephany Hermosillo Med Refill Medicine, [place] [facility] [place], in [place] [phone] [place], [place] [address] [phone] Social History Tobacco Use Types Packs/Day Years Used Date Smoking Tobacco: Never Smokeless Tobacco: Never Alcohol Use Standard Drinks/Week Comments No 0 (1 standard drink = 0.6 oz pure alcoho l) Sex Assigned at Date Recorded Not on file documented as of this encounter Miscellaneous Notes Telephone Encounter - Aleisha Hermosillo M.D. - 12/25/2018 4:07 PM CDT Rx filled. documented in this encounter Plan of Treatment Not on filedocumented as of this encounter Visit Diagnoses Not on filedocumented in this encounter Care Teams Organic Chemistry Professor Relationship Specialty Start Date End Date Aleisha Hermosillo M.D. PCP - General 08/18/[address] [place] [phone] documented as of this encounter
--- OUTSIDE RECORDS SUMMARY | 2022-01-04 09:35 | XMS_ITS | Encounter Summary ---
:1935 Author Organization [facility] Address [address] [place] [address] Care Team Providers Name Role Phone Aleisha Hermosillo M.D. Primary Care Provider [phone] Reason for Visit Reason Comments Med Refill Encounter Details Date Type Department Care Team Description 07/11/2018 Refill Department of [facility] Stephany Hermosillo Med Refill Medicine, [place] [facility], in [place] [phone] [place], [place] [phone] [phone] Social History Tobacco Use Types Packs/Day Years Used Date Smoking Tobacco: Never Smokeless Tobacco: Never Alcohol Use Standard Drinks/Week Comments No 0 (1 standard drink = 0.6 oz pure alcoho l) Sex Assigned at Date Recorded Not on file documented as of this encounter Miscellaneous Notes Telephone Encounter - Monica Duenas - 07/11/2018 2:06 PM CDT Duplicate documented in this encounter Plan of Treatment Not on filedocumented as of this encounter Visit Diagnoses Not on filedocumented in this encounter Care Teams Medical Billing Service Relationship Specialty Start Date End Date Aleisha Hermosillo M.D. PCP - General 08/18/[address] [phone] documented as of this encounter
--- OUTSIDE RECORDS SUMMARY | 2022-01-04 09:35 | XMS_ITS | Encounter Summary ---
:1935 Author Organization [facility] Address [address] [place] [address] Care Team Providers Name Role Phone Aleisha Hermosillo M.D. Primary Care Provider [phone] Reason for Visit Reason Comments Med Refill Encounter Details Date Type Department Care Team Description 11/13/2018 Refill Department of [facility] Stephany Hermosillo Med Refill Medicine, [place] [facility], in [place] [phone] [place], [place] [phone] [phone] Social History Tobacco Use Types Packs/Day Years Used Date Smoking Tobacco: Never Smokeless Tobacco: Never Alcohol Use Standard Drinks/Week Comments No 0 (1 standard drink = 0.6 oz pure alcoho l) Sex Assigned at Date Recorded Not on file documented as of this encounter Miscellaneous Notes Telephone Encounter - Aleisha Hermosillo M.D. - 11/14/2018 9:20 AM CDT Rx filled. documented in this encounter Plan of Treatment Not on filedocumented as of this encounter Visit Diagnoses Not on filedocumented in this encounter Care Teams Drywall Applicator Relationship Specialty Start Date End Date Aleisha Hermoisllo M.D. PCP - General 08/18/[address] [place] [phone] documented as of this encounter
--- OUTSIDE RECORDS SUMMARY | 2022-01-04 09:35 | XMS_ITS | Encounter Summary ---
:1935 Author Organization [facility] Address [address] [place] [address] Care Team Providers Name Role Phone Aleisha Hermosillo M.D. Primary Care Provider Reason for Visit Reason Comments Med Refill Encounter Details Date Type Department Care Team Description 09/05/2018 Refill Department of [facility] Stephany Hermosillo Med Refill Medicine, [place] [facility], in [place] [phone] [place], [place] [address] [phone] Social History Tobacco Use Types Packs/Day Years Used Date Smoking Tobacco: Never Smokeless Tobacco: Never Alcohol Use Standard Drinks/Week Comments No 0 (1 standard drink = 0.6 oz pure alcoho l) Sex Assigned at Date Recorded Not on file documented as of this encounter Miscellaneous Notes Telephone Encounter - Aleisha Hermosillo M.D. - 09/07/2018 6:51 AM CDT Rx filled. documented in this encounter Plan of Treatment Not on filedocumented as of this encounter Visit Diagnoses Not on filedocumented in this encounter Care Teams Business Banking Representative Relationship Specialty Start Date End Date Aleisha Hermosillo M.D. PCP - General 08/18/[address] [place] [phone] documented as of this encounter
--- OUTSIDE RECORDS SUMMARY | 2022-01-04 09:35 | XMS_ITS | Encounter Summary ---
:1935 Author Organization [facility] Address [address] [place] [address] Care Team Providers Name Role Phone Aleisha Hermosillo M.D. Primary Care Provider [phone] Reason for Visit Reason Comments Nurse Visit Flu Shot Appointment Request (Routine) - Closed Specialty Diagnoses / Procedures Referred By Contact Refer red To Contact Family Medicine Referral ID Status Reason Start Date Expiration Date Visits Requ ested Visits Authorized [id number] Closed 01/08/2019 01/08/2020 1 1 Encounter Details Date Type Department Care Team Description 01/11/2019 Immunization Department of [facility] Rajinder Gonzales mmunization Only Medicine, Keith Rust M.D. (Primary Dx) [facility], [address] [address] [place], [place] [phone] (Work) [phone] Social History Tobacco Use Types Packs/Day Years Used Date Smoking Tobacco: Never Smokeless Tobacco: Never Alcohol Use Standard Drinks/Week Comments No 0 (1 standard drink = 0.6 oz pure alcoho l) Sex Assigned at Date Recorded Not on file documented as of this encounter Plan of Treatment Not on filedocumented as of this encounter Visit Diagnoses Diagnosis Immunization Only - Primary documented in this encounter Care Teams Manager Actuarial Relationship Specialty Start Date End Date Aleisha Hermosillo M.D. PCP - General 08/18/[id number] [address] documented as of this encounter
--- OUTSIDE RECORDS SUMMARY | 2022-01-04 09:35 | XMS_ITS | Encounter Summary ---
:1935 Author Organization [facility] Address [address] [place] [address] Care Team Providers Name Role Phone Aleisha Hermosillo M.D. Primary Care Provider [phone] Reason for Visit Reason Comments Med Refill Encounter Details Date Type Department Care Team Description 05/25/2018 Refill Department of [facility] Stephany Hermosillo Med Refill Medicine, [address] [facility], in [place] [phone] [place], [place] [phone] Social History Tobacco Use Types Packs/Day Years Used Date Smoking Tobacco: Never Smokeless Tobacco: Never Alcohol Use Standard Drinks/Week Comments No 0 (1 standard drink = 0.6 oz pure alcoho l) Sex Assigned at Date Recorded Not on file documented as of this encounter Miscellaneous Notes Telephone Encounter - Wyatt Wilkinson - 05/25/2018 9:54 AM CDT Patient should have refills remaining. documented in this encounter Plan of Treatment Not on filedocumented as of this encounter Visit Diagnoses Not on filedocumented in this encounter Care Teams Production Consultant Relationship Specialty Start Date End Date Aleisha Hermosillo M.D. PCP - General 08/18/[address] [phone] documented as of this encounter
--- OUTSIDE RECORDS SUMMARY | 2022-01-04 09:35 | XMS_ITS | Encounter Summary ---
:1935 Author Organization [facility] Address [address] [place] [address] Care Team Providers Name Role Phone Aleisha Hermosillo M.D. Primary Care Provider Reason for Visit Reason Comments Med Refill Encounter Details Date Type Department Care Team Description 11/29/2018 Refill Department of [facility] Stephany Hermosillo Med Refill Medicine, [place] [facility], in [place] [phone] [place], [place] [phone] Social History Tobacco Use Types Packs/Day Years Used Date Smoking Tobacco: Never Smokeless Tobacco: Never Alcohol Use Standard Drinks/Week Comments No 0 (1 standard drink = 0.6 oz pure alcoho l) Sex Assigned at Date Recorded Not on file documented as of this encounter Miscellaneous Notes Telephone Encounter - Aleisha Hermosillo M.D. - 12/03/2018 9:51 AM CDT Rx filled. documented in this encounter Plan of Treatment Not on filedocumented as of this encounter Visit Diagnoses Not on filedocumented in this encounter Care Teams Associate Director Finance Relationship Specialty Start Date End Date Aleisha Hermosillo M.D. PCP - General 08/18/[address] [place] [phone] documented as of this encounter
--- OUTSIDE RECORDS SUMMARY | 2022-01-04 09:35 | XMS_ITS | Encounter Summary ---
:1935 Author Organization [facility] Address [address] [place] [address] Care Team Providers Name Role Phone Aleisha Hermosillo M.D. Primary Care Provider [phone] Reason for Visit Reason Comments Follow-up doesnt know why she is here - unsure of med list Outpatient (Routine) - Closed Specialty Diagnoses / Procedures Referred By Contact Refer red To Contact Family Medicine Aleisha Hermosillo ANABEL Rust M.D. [address] [place] [phone] Referral ID Status Reason Start Date Expiration Date Visits Requ ested Visits Authorized [id number] Closed 02/28/2018 02/28/2019 1 1 Encounter Details Date Type Department Care Team Description 05/30/2018 Office Visit Department of Family Saima Hermosillo (Primary Dx); Keith Kay M.D. Hypertension Essential Primary; [facility], in [address] [place] [address] Regurgit ation Aortic; [facility] Hypercholesterolemia; [place], [place] Anxiety; [address] [place] [address] [address] Gout [place], [place] [phone] (Work) [phone] Social History Tobacco Use Types Packs/Day Years Used Date Smoking Tobacco: Never Smokeless Tobacco: Never Alcohol Use Standard Drinks/Week Comments No 0 (1 standard drink = 0.6 oz pure alcoho l) Sex Assigned at Date Recorded Not on file documented as of this encounter Last Filed Vital Signs Vital Sign Reading Time Taken Comments Blood Pressure 193/50 05/30/2018 8:49 AM CDT Pulse 83 05/30/2018 8:49 AM CDT Temperature 36.2 ??C (97.2 ??F) 05/30/2018 8:15 AM CDT Respiratory Rate 16 05/30/2018 8:15 AM CDT Oxygen Saturation 97% 05/30/2018 8:15 AM CDT Inhaled Oxygen Concentration - - Weight 59 kg (130 lb 1.1 oz) 05/30/2018 8:15 AM CDT Height - - Body Mass Index 22.48 06/07/2017 8:17 AM CDT documented in this encounter Progress Notes Aleisha Hermosillo M.D. - 05/30/2018 8:15 AM CDT SUBJECTIVE CHIEF COMPLAINT / REASON FOR VISIT Janeth Duenas is a 83 y.o. female who presents for evaluation of Follow- up (doesnt know whyshe is here - unsure of med list). HISTORY OF PRESENT ILLNESS Janeth presents today with her and reports that things are going well overall. She describes her breathing as being good. She denies having any chest pain or shortness of breath. She states thather mood and anxiety have been okay. Her notes that she will become ornery once in a while. She has not had a gout flare up in a long time. She denies having any troubles with bowel or bladder function. She also denies having any numbness or tingling in bilateral upper or lower extremities. Patient's notes that her memory is slipping a little. He believes that her memory is gradually declining over time. She is able to cook without any problems. She currently is still driving. Her does most of the grocery shopping. Additionally, she notes having swollen glands in her neck for the past few months. She has also beenhaving a sore throat. She denies experiencing any episodes of dizziness. She has not had any recent falls. REVIEW OF SYSTEMS A brief review of systems was negative except for that mentioned in the history of present illness. Current Outpatient Medications Medication Sig ??? allopurinol (ZYLOPRIM) 100 mg tablet TAKE TWO TABLETS BY MOUTH EVERY DAY ??? aspirin [address] tablet Take 1 tablet by mouth daily. ??? CALCIUM CARB/VIT D3/MINERALS (CALCIUM-VITAMIN D ORAL) Take by mouth daily. ??? chlorthalidone (HYGROTEN) 25 mg tablet Take 1 tablet (25 mg total) by mouth daily. ??? donepezil (ARICEPT) 10 mg tablet TAKE ONE TABLET BY MOUTH AT BEDTIME FOR MEMORY ??? furosemide (LASIX) 20 mg tablet TAKE ONE TABLET BY MOUTH EVERY DAY ( WATER PILL) ??? losartan (COZAAR) 100 mg tablet TAKE ONE TABLET BY MOUTH EVERY DAY FOR BLOOD PRESSURE ??? memantine 21 mg capsule,sprinkle,ER 24hr Take 1 capsule (21 mg total) by mouth daily. ??? metoprolol tartrate (LOPRESSOR) 25 mg tablet Take 1 tablet (25 mg total) by mouth 2 (two) times a day. ??? metoprolol tartrate (LOPRESSOR) 50 mg tablet TAKE ONE TABLET BY MOUTH TWICE A DAY FOR BLOOD PRESSURE/HEART ??? potassium chloride (KLOR-CON M) 10 mEq ER tablet TAKE ONE TABLET BY MOUTH TWICE A DAY ??? sertraline (ZOLOFT) 50 mg tablet TAKE ONE TABLET BY MOUTH EVERY DAY ??? COLCRYS 0.6 mg tablet TAKE 2 TABLETS AT FIRST SIGN OF GOUT FLARE, FOLLOWED BY 1 TABLET ONE HOUR LATER(MAX OF 3 TABLETS PER ATTACK) DO NOT REPEAT FOR 3 DAYS (Patient not taking: Reported on 05/30/2018) Allergies Allergen Reactions ??? Lisinopril Other (see comments) Tickle in throat x 3 weeks with no other reason OBJECTIVE PHYSICAL EXAMINATION BP (!) 193/50 Pulse 83 Temp 36.2 ??C (Temporal) Resp 16 Wt 59 kg SpO2 97% ?No BMI 22.48 kg/m?? Body mass index is 22.48 kg/m??. General: Alert and oriented. No acute distress. HEENT: Pale nasal mucosa with some clear drainage. Oropharynx is unremarkable. Mucous membranes moist, no oral lesions Neck: Supple. No lymphadenopathy. Radiated murmur vs carotid bruits. Cardiovascular Exam: Regular rate and rhythm. Normal S1 and S2. 3/6 systolic murmurs. No rubs or gallops. Lungs: Clear to auscultation bilaterally. Extremities: No pedal edema. DIAGNOSTICS Results for orders placed or performed during the hospital encounter of 05/30/18 Basic Metabolic Panel Result Value Ref Range Potassium, S 3.9 3.6 - 5.2 mmol/L Sodium, S 143 135 - 145 mmol/L Chloride, S 106 98 - 107 mmol/L Bicarbonate, S 27 22 - 29 mmol/L Anion Gap 10 7 - 15 Bld Urea Nitrog(BUN), S 15 6 - 21 mg/dL Creatinine, S 0.95 0.59 - 1.04 mg/dL eGFR-Non Black 56 (L) >=60 mL/min/BSA eGFR-Black 65 >=60 mL/min/BSA Calcium, Total 9.6 8.8 - 10.2 mg/dL Glucose, S 115 70 - 140 mg/dL Lipid Panel Result Value Ref Range Cholesterol, Total, S 180 mg/dL Triglycerides, S 109 mg/dL Cholesterol, HDL, S 50 >=50 mg/dL Calculated LDL 108 mg/dL Non HDL Cholesterol 130 mg/dL ASSESSMENT / PLAN #1 Dementia This continues to progress. Recommended increasing Namenda to 21 mg daily. Continue Aricept. Offeredreferral to neurology, which they decline. Again, strongly advised that she should not be driving. #2 Hypertension Essential Primary Blood pressure is elevated. Will reassess with upcoming cardiology visit. Continue current meds. #3 Regurgitation Aortic She is due to see cardiology and was advised to schedule appointment and echocardiogram. #4 Hypercholesterolemia Lipid panel obtained and acceptable. #5 Anxiety Mood is stable. Continue with current medications. #6 Gout This has been stable. Continue with present management. By signing my name below, I, Max Wild, attest that this documentation has been prepared under the direction and in the presence of Dr. Aleisha Gonzales M.D. Electronically Signed: sourav Schaeffer. 05/31/2018. 7:09 AM . IAleisha M.D., personally performed the services described in this documentation.All medical record entries made by the scribe were at my direction and in my presence. I have reviewed the chart and discharge instructions (if applicable) and agree that the record reflects my personal performance and is accurate and complete. Aleisha Gonzales M.D. . 06/01/2018. 10:21 PM. documented in this encounter Plan of Treatment Not on filedocumented as of this encounter Visit Diagnoses Diagnosis Dementia (HCC) - Primary Hypertension Essential Primary Regurgitation Aortic Hypercholesterolemia Anxiety Gout documented in this encounter Care Teams Hot Kettle Tender Relationship Specialty Start Date End Date Aleisha Hermosillo M.D. PCP - General 08/18/[address] [place] [phone] documented as of this encounter
--- OUTSIDE RECORDS SUMMARY | 2022-01-04 09:35 | XMS_ITS | Encounter Summary ---
:1935 Author Organization [facility] Address [address] [place] [address] Care Team Providers Name Role Phone Aleisha Hermosillo M.D. Primary Care Provider [phone] Reason for Visit Reason Comments Med Refill Encounter Details Date Type Department Care Team Description 01/19/2019 Refill Department of [facility] Stephany Hermosillo Med Refill Medicine, [place] [facility], in [address] [address] [place], [place] [address] [phone] Social History Tobacco Use Types Packs/Day Years [...] filedocumented in this encounter Care Teams Manager Analytical Relationship Specialty Start Date End Date Aleisha Hermosillo M.D. PCP - General 08/18/[address] [place] [phone] documented as of this encounter
--- OUTSIDE RECORDS SUMMARY | 2022-01-04 09:35 | XMS_ITS | Encounter Summary ---
:1935 Author Organization [facility] Address [address] [place] [address] Care Team Providers Name Role Phone Aleisha Hermosillo M.D. Primary Care Provider [phone] Reason for Visit Reason Onset Date Comments Medication Question 01/14/2019 Encounter Details Date Type Department Care Team Description 01/14/2019 Clinical Department of [facility] sti Communication Family Medicine, Aleisha Gonzales M[facility], in [address] [address] [place], [place] [phone] (Work) [phone] Social History Tobacco Use Types Packs/Day Years Used Date Smoking Tobacco: Never Smokeless Tobacco: Never Alcohol Use Standard Drinks/Week Comments No 0 (1 standard drink = 0.6 oz pure alcoho l) Sex Assigned at Date Recorded Not on file documented as of this encounter Miscellaneous Notes Telephone Encounter - Yusra Jaquez R.N. - 01/16/2019 10:44 AM PROMOTIONS ASSOCIATE SUBJECTIVE CHIEF COMPLAINT / REASON FOR CALL Medication Question INFORMATION DISCUSSED Katie contacted and notified of PCP's message. Pt added to see PCP 01/21 with family present. PLAN Disposition/Recommendation: pt/pt's family to follow-up and discuss concerns further in clinic 11/18. Education: patient/caller able to teach back Caller agreeable to plan of care: yes The following references were used: provider Dr. Carroll OTIONS ASSOCIATE Telephone Encounter - Aleisha Hermosillo M.D. - 01/16/2019 10:17 AM PROMOTIONS ASSOCIATE Please let family know that I would really appreciate seeing the patient and her family. I can seen them on 01/21 at 12:30 with a 12:15 check in time. Aleisha Parmar OTIONS ASSOCIATE Telephone Encounter - Clara Jackson R.N. - 01/14/2019 10:52 AM PROMOTIONS ASSOCIATE No RAKAN on file to speak with daughter in law. There is authorization on file for patient's son Luke. INFORMATION DISCUSSED Called son's gabriela and Katie answered phone. She states that they set up her medications and just were wondering if they could make a visit to discuss with provider possibly discontinuing some of the medications. They were hoping to have son Luke, Katie and Rickey come to visit but not Janeth as she states Janeth get very upset discussing medical things and does not remember anyof the conversation afterward. Please advise if this is possible for a visit. Advised that I am not sure if visit can be made without patient, however that I would check with provider. Also they were requesting a visit next week or soon there after, however only 15 minute slots available. Please advise on if you feel you can accommodate. They are aware that provider is out of the office until this week and are OK to wait. PLAN Disposition/Recommendation: provider notified and awaiting provider recommendations Education: patient/caller able to teach back Caller agreeable to plan of care: yes The following references were used: nursing clinical judgement OTIONS ASSOCIATE Telephone Encounter - Darcy Faith - 01/14/2019 9:11 AM CST Pt's daughter in law, Katie, is calling wishing to speak with a nurse regarding Janeth's medications. She states Janeth is currently taking 13 pills a day, and it just feels like a lot, are they all really neccessary? Call back number:[phone] OTIONS ASSOCIATE documented in this encounter Plan of Treatment Not on filedocumented as of this encounter Visit Diagnoses Not on filedocumented in this encounter Care Teams Plan Coordinator Relationship Specialty Start Date End Date Aleisha Hermosillo M.D. PCP - General 08/18/[address] [place] [phone] documented as of this encounter
--- OUTSIDE RECORDS SUMMARY | 2022-01-04 09:35 | XMS_ITS | Encounter Summary ---
:1935 Author Organization [facility] Address [address] [place] [address] Care Team Providers Name Role Phone Aleisha Hermosillo M.D. Primary Care Provider Reason for Visit Reason Comments Med Refill Encounter Details Date Type Department Care Team Description 10/17/2018 Refill Department of [facility] Stephany Hermosillo Med Refill Medicine, [place] [facility], in [place] [phone] [place], [place] [phone] Social History Tobacco Use Types Packs/Day Years Used Date Smoking Tobacco: Never Smokeless Tobacco: Never Alcohol Use Standard Drinks/Week Comments No 0 (1 standard drink = 0.6 oz pure alcoho l) Sex Assigned at Date Recorded Not on file documented as of this encounter Miscellaneous Notes Telephone Encounter - Monica Castro - 10/17/2018 4:14 PM CDT Duplicate rx request. Last script was issued on 10/08/18, qty 180 with 3 refills. documented in this encounter Plan of Treatment Not on filedocumented as of this encounter Visit Diagnoses Not on filedocumented in this encounter Care Teams Care Transitions Nurse Relationship Specialty Start Date End Date Aleisha Hermosillo M.D. PCP - General 08/18/[address] [place] [phone] documented as of this encounter
--- OUTSIDE RECORDS SUMMARY | 2022-01-04 09:35 | XMS_ITS | Encounter Summary ---
:1935 Author Organization [facility] Address [address] [place] [address] Care Team Providers Name Role Phone Aleisha Hermosillo M.D. Primary Care Provider [phone] Reason for Visit Reason Comments Med Refill Encounter Details Date Type Department Care Team Description 08/08/2018 Refill Department of [facility] Stephany Hermosillo Med Refill Medicine, [place] [facility], in [place] [phone] [place], [place] [address] [phone] Social History Tobacco Use Types Packs/Day Years Used Date Smoking Tobacco: Never Smokeless Tobacco: Never Alcohol Use Standard Drinks/Week Comments No 0 (1 standard drink = 0.6 oz pure alcoho l) Sex Assigned at Date Recorded Not on file documented as of this encounter Miscellaneous Notes Telephone Encounter - yWatt Wilkinson - 08/09/2018 8:31 AM CDT Rx was sent 08-04-18 documented in this encounter Plan of Treatment Not on filedocumented as of this encounter Visit Diagnoses Not on filedocumented in this encounter Care Teams Corporate Analyst Relationship Specialty Start Date End Date Aleisha Hermosillo M.D. PCP - General 08/18/[address] [phone] documented as of this encounter
--- OUTSIDE RECORDS SUMMARY | 2022-01-04 09:35 | XMS_ITS | Encounter Summary ---
:1935 Author Organization [facility] Address [address] [place] [address] Care Team Providers Name Role Phone Aleisha Hermosillo M.D. Primary Care Provider [phone] Reason for Visit Reason Comments Med Refill Encounter Details Date Type Department Care Team Description 07/06/2018 Refill Department of [facility] Stephany Hermosillo Med Refill Medicine, [place] [facility], in [place] [phone] [place], [place] [address] [phone] Social History Tobacco Use Types Packs/Day Years Used Date Smoking Tobacco: Never Smokeless Tobacco: Never Alcohol Use Standard Drinks/Week Comments No 0 (1 standard drink = 0.6 oz pure alcoho l) Sex Assigned at Date Recorded Not on file documented as of this encounter Miscellaneous Notes Telephone Encounter - Wyatt Wilkinson - 07/06/2018 11:14 AM CDT Patient should have refills remaining. documented in this encounter Plan of Treatment Not on filedocumented as of this encounter Visit Diagnoses Not on filedocumented in this encounter Care Teams Fondant Puff Maker Relationship Specialty Start Date End Date Aleisha Hermosillo M.D. PCP - General 08/18/[address] [phone] documented as of this encounter
--- OUTSIDE RECORDS SUMMARY | 2022-01-04 09:35 | XMS_ITS | Encounter Summary ---
:1935 Author Organization [facility] Address [address] [place] [address] Care Team Providers Name Role Phone Aleisha Hermosillo M.D. Primary Care Provider [phone] Encounter Details Date Type Department Care Team Description 05/24/[address] [facility] ANABEL Hackett ea Provider, Historical [address] [place] [address] Social History Tobacco Use Types Packs/Day Years [...] on filedocumented in this encounter Care Teams Helmet Binder Relationship Specialty Start Date End Date Aleisha Hermosillo M.D. PCP - General 08/18/[address] [place] [phone] documented as of this encounter
--- OUTSIDE RECORDS SUMMARY | 2022-01-04 09:35 | XMS_ITS | Encounter Summary ---
:1935 Author Organization [facility] Address [address] [place] [address] Care Team Providers Name Role Phone Aleisha Hermosillo M.D. Primary Care Provider [phone] Reason for Visit Reason Comments Med Management Appointment Request (Routine) - Closed Specialty Diagnoses / Procedures Referred By Contact Refer red To Contact Family Medicine Referral ID Status Reason Start Date Expiration Date Visits Requ ested Visits Authorized [id number] Closed 01/16/2019 01/16/2020 1 1 Encounter Details Date Type Department Care Team Description 01/21/2019 Office Visit Department of [facility] Saima Hermosillo ([facility]) (Primary Dx); Medicine, Keith Rust M.D. Hypertension Essential Primary; [facility], [place] [address] Hypercho lesterolemia; [facility] Regurgitation Aortic; [place], [place] Anxiety; [address] [place] [address] [address] Gout [place], [place] [phone] [address] (Work) [phone] Social History Tobacco Use Types Packs/Day Years Used Date Smoking Tobacco: Never Smokeless Tobacco: Never Alcohol Use Standard Drinks/Week Comments No 0 (1 standard drink = 0.6 oz pure alcoho l) Sex Assigned at Date Recorded Not on file documented as of this encounter Last Filed Vital Signs Vital Sign Reading Time Taken Comments Blood Pressure 133/45 01/21/2019 12:25 PM CUSTOMER SERVICE ATTENDANT Pulse 61 01/21/2019 12:25 PM CUSTOMER SERVICE ATTENDANT Temperature 36.7 ??C (98.1 ??F) 01/21/2019 12:25 PM CUSTOMER SERVICE ATTENDANT Respiratory Rate 16 01/21/2019 12:25 PM CUSTOMER SERVICE ATTENDANT Oxygen Saturation 95% 01/21/2019 12:25 PM CUSTOMER SERVICE ATTENDANT Inhaled Oxygen Concentration - - Weight 55 kg (121 lb 4.1 oz) 01/21/2019 12:25 PM CUSTOMER SERVICE ATTENDANT Height 162 cm (5' 3.78) 01/21/2019 12:25 PM CUSTOMER SERVICE ATTENDANT Body Mass Index 20.96 01/21/2019 12:25 PM CUSTOMER SERVICE ATTENDANT documented in this encounter Progress Notes Aleisha Hermosillo M.D. - 01/21/2019 12:30 PM CST SUBJECTIVE CHIEF COMPLAINT / REASON FOR VISIT Janeth Duenas is a 84 y.o. female who presents for evaluation of Med Management. HISTORY OF PRESENT ILLNESS Janeth is accompanied by her [id number]-qu-eiy and presents today for a review of medications. She denies experiencing any significant side effects from her current medication regimen. She has not had a gout flare up in quite some time. She has not been needing to take her colchicine. She describes her mood as being okay. Before starting sertraline, she was experiencing a large amount of anxiety. [id number] would like to review meds and see if they are all necessary. She reports that patient's memory continues to be poor. REVIEW OF SYSTEMS A brief review of systems was negative except for that mentioned in the history of present illness. Current Outpatient Medications Medication Sig ??? allopurinol (ZYLOPRIM) 100 mg tablet TAKE TWO TABLETS BY MOUTH EVERY DAY ??? chlorthalidone (HYGROTEN) 25 mg tablet Take 1 tablet (25 mg total) by mouth daily. ??? COLCRYS 0.6 mg tablet TAKE 2 TABLETS AT FIRST SIGN OF GOUT FLARE, FOLLOWED BY 1 TABLET ONE HOUR LATER(MAX OF 3 TABLETS PER ATTACK) DO NOT REPEAT FOR 3 DAYS ??? donepezil (ARICEPT) 10 mg tablet TAKE ONE TABLET BY MOUTH AT BEDTIME FOR MEMORY ??? losartan (COZAAR) 100 mg tablet Take 1 tablet (100 mg total) by mouth at bedtime. for blood pressure ??? metoprolol tartrate (LOPRESSOR) 25 mg tablet Take 1 tablet (25 mg total) by mouth 2 (two) times a day. ??? sertraline (ZOLOFT) 50 mg tablet Take 1 tablet (50 mg total) by mouth at bedtime. Allergies Allergen Reactions ??? Lisinopril Other (see comments) Tickle in throat x 3 weeks with no other reason OBJECTIVE PHYSICAL EXAMINATION BP (!) 133/45 (BP Location: Left arm, Patient Position: Sitting, Cuff Size: Regular) Pulse 61 Temp 36.7 ??C (Temporal) Resp 16 Ht 162 cm Wt 55 kg SpO2 95% BMI 20.96 kg/m?? Body mass indexis 20.96 kg/m??. General: Alert and oriented. No acute distress. Neck: Supple. No lymphadenopathy. Radiated murmur. Cardiovascular Exam: Regular rate and rhythm. Normal S1 and S2. 2/6 systolic murmur. No rubs, or gallops. Lungs: Clear to auscultation bilaterally. Extremities: No pedal edema. ASSESSMENT / PLAN #1 Dementia (HCC) Memory continues to be an issue. At this point, medications are likely not helping significantly, sowill discontinue Namenda, but continue Aricept. #2 Hypertension Essential Primary Blood pressure acceptable. Will plan to stop Lasix. Reassess in two weeks. #3 Hypercholesterolemia Not currently on any medication. #4 Regurgitation Aortic Lasix and potassium stopped. Patient was advised to monitor for shortness of breath or ankle swelling. #5 Anxiety Will continue on Sertraline for now. #6 Gout Continue current management with allopurinol. Will reassess uric acid with next labs. By signing my name below, I, Max Wild, attest that this documentation has been prepared under the direction and in the presence of Aleisha Gonzales M.D. Electronically Signed: sourav Schaeffer. 01/21/2019. 2:51 PM . IAleisha M.D., personally performed the services described in this documentation.All medical record entries made by the scribe were at my direction and in my presence. I have reviewed the chart and discharge instructions (if applicable) and agree that the record reflects my personal performance and is accurate and complete. Aleisha Gonzales M.D. . 01/23/2019. 6:48 AM. OMER SERVICE ATTENDANT documented in this encounter Plan of Treatment Not on filedocumented as of this encounter Results Uric Acid (02/04/2019 3:37 PM CUSTOMER SERVICE ATTENDANT) P athologist Signature Uric Acid, S 3.9 2.7 - 6.1 02/04/2019 CNFL mg/dL 4:21 PM CUSTOMER SERVICE ATTENDANT Specimen Anatomical Collection Method Collection Time Receive d Time (Source) Location / / Volume Laterality Blood (Blood, 02/04/2019 3:37 PM 02/05/20 19 3:39 Venous) CUSTOMER SERVICE ATTENDANT PM CUSTOMER SERVICE ATTENDANT Aleisha Gonzales M.D. LAB BLOOD ADD-ON Performing Organization Address City/State/ZIP Code Phon e Number [id number] [place] [address] [place] [address] System in [address] (ABNORMAL) Basic Metabolic Panel (02/04/2019 3:37 PM CUSTOMER SERVICE ATTENDANT) Analysis Performed At Patho logist Time Signature Potassium, S 3.9 3.6 - 5.2 02/04/2019 CNFL mmol/L 4:21 PM CUSTOMER SERVICE ATTENDANT Sodium, S 144 135 - 145 02/04/2019 CN[facility] mmol/L 4:21 PM CUSTOMER SERVICE ATTENDANT Chloride, S 106 98 - 107 02/04/2019 CN[facility] mmol/L 4:21 PM CUSTOMER SERVICE ATTENDANT Bicarbonate, S 27 22 - 29 02/04/2019 CN[facility] mmol/L 4:21 PM CUSTOMER SERVICE ATTENDANT Anion Gap 11 7 - 15 02/04/2019 CNFL 4:21 PM CUSTOMER SERVICE ATTENDANT BUN (Blood Urea 23 (H) 6 - 21 02/04/2019 CNFL Nitrogen), S mg/dL 4:21 PM CUSTOMER SERVICE ATTENDANT Creatinine 1.20 (H) 0.59 - 02/04/2019 CNFL 1.04 mg/dL 4:21 PM CUSTOMER SERVICE ATTENDANT eGFR-Non 42 (L) >=60 02/04/2019 CNFL Black/ mL/min/BSA 4:21 PM CUSTOMER SERVICE ATTENDANT [place] Comment: ----ADDITIONAL INFORMATION---- Estimated GFR calculated using the 2009 CKD_EPI creatinine equation. eGFR-Black/ 48 (L) >=60 mL/min/BSA 2018 4:21 PM CUSTOMER SERVICE ATTENDANT CNFL Comment: ----ADDITIONAL INFORMATION---- Estimated GFR calculated using the 2009 CKD_EPI creatinine equation. Calcium, Total, S 9.6 8.8 - 10.2 mg/dL 02/04/2019 4:21 PM CUSTOMER SERVICE ATTENDANT CNFL Glucose, S 109 70 - 140 mg/dL 02/04/2019 4:21 PM CUSTOMER SERVICE ATTENDANT C NFL Specimen Anatomical Collection Method Collection Time Receive d Time (Source) Location / / Volume Laterality Blood (Blood, 02/04/2019 3:37 PM 02/05/20 3:39 Venous) CUSTOMER SERVICE ATTENDANT PM CUSTOMER SERVICE ATTENDANT Aleisha Gonzales M.D. LAB BLOOD ADD-ON Performing Organization Address City/State/ZIP Code Phon e Number [facility]- [address] [place] [id number] [place] [address] System in [address] documented in this encounter Visit Diagnoses Diagnosis Dementia (HCC) - Primary Hypertension Essential Primary Hypercholesterolemia Regurgitation Aortic Anxiety Gout documented in this encounter Care Teams Him Specialist Relationship Specialty Start Date End Date Aleisha Hermosillo M.D. PCP - General 08/18/[address] [place] [phone] documented as of this encounter
--- OUTSIDE RECORDS SUMMARY | 2022-01-04 09:35 | XMS_ITS | Encounter Summary ---
:1935 Author Organization [facility] Address [address] [place] [address] Care Team Providers Name Role Phone Aleisha Hermosillo M.D. Primary Care Provider [phone] Reason for Visit Reason Comments Med Refill Encounter Details Date Type Department Care Team Description 10/03/2018 Refill Department of [facility] Stephany Hermosillo Med Refill Medicine, [place] [facility], in [place] [phone] [place], [place] [phone] Social History Tobacco Use Types Packs/Day Years Used Date Smoking Tobacco: Never Smokeless Tobacco: Never Alcohol Use Standard Drinks/Week Comments No 0 (1 standard drink = 0.6 oz pure alcoho l) Sex Assigned at Date Recorded Not on file documented as of this encounter Miscellaneous Notes Telephone Encounter - Monica Castro - 10/03/2018 5:05 PM CDT Last script was issued on 09/07/18, qty 90 tabs with 3 refills. documented in this encounter Plan of Treatment Not on filedocumented as of this encounter Visit Diagnoses Not on filedocumented in this encounter Care Teams Cost Report Clerk Relationship Specialty Start Date End Date Aleisha Hermosillo M.D. PCP - General 08/18/[address] [place] [phone] documented as of this encounter
--- OUTSIDE RECORDS SUMMARY | 2022-01-04 09:35 | XMS_ITS | Encounter Summary ---
:1935 Author Organization [facility] Address [address] [place] [address] Care Team Providers Name Role Phone Aleisha Hermosillo M.D. Primary Care Provider [phone] Encounter Details Date Type Department Care Team Description 05/30/2018 Hospital Encounter Department of [facility] Medicine Aleisha Gonzales Primary [place] [address] [phone] Social History Tobacco Use Types Packs/Day Years [...] TAKE TWO TABLETS BY 180 tablet 3 02/0 03/201801/21/2019 100 mg tablet MOUTH EVERY DAY aspirin [...] 12/25/2018 tablet MOUTH AT BEDTIME FOR MEMORY furosemide (LASIX) 20 mg TAKE ONE TABLET BY 90 tablet 3 01/21/2019 tablet MOUTH EVERY DAY ( WATER PILL) losartan (COZAAR) 100 mg TAKE ONE TABLET BY 90 tablet 1 09/05/2018 tablet MOUTH EVERY DAY FOR BLOOD PRESSURE memantine 21 mg Take 1 capsule (21 90 capsule 3 05/30/2018 1 03/23/2018 capsule,sprinkle,ER 24hr mg total) by mouth daily. [...] Name Priority Date/Time Associated Diagnosis Comme nts LIPID PANEL, S Routine 05/30/2018 7:59 AM Hypertension Results for this CDT Essential Primary procedure are in the results section. BASIC METABOLIC Routine 05/30/2018 7:59 AM Hypertension Result s for this PANEL, S/P CDT Essential Primary procedure are in the results section. documented in this encounter Results Lipid Panel (05/30/2018 7:59 AM CDT) P athologist Signature Cholesterol, 180 mg/dL 05/30/[address] [facility] Total 8:53 AM [facility] LAB Comment: ----REFERENCE VALUE---- Desirable: < 200 Borderline high: 200 - 239 High: > or = 240 Triglycerides 109 mg/dL 05/30/2018 8:53 AM CDT [facility] LAB Comment: ----REFERENCE VALUE---- Normal: <150 Borderline high: 150-199 High: 200-499 Very high: > or =500 Cholesterol, HDL, S 50 >=50 mg/dL 05/30/2018 8:53 AM CDT [facility] Calculated LDL 108 mg/dL 05/30/2018 8:53 AM CDT [facility] LAB Comment: ----REFERENCE VALUE---- Desirable: <100 Above Desirable: 100-129 Borderline high: 130-159 High: 160-189 Very high: > or =190 Cholesterol, Non-HDL, 130 mg/dL 05/30/2018 8:53 AM CDT [facility] LAB Comment: ----REFERENCE VALUE---- Desirable: <130 Above Desirable: 130-159 Borderline high: 160-189 High: 190-219 Very high: > or =220 Specimen Anatomical Collection Method Collection Time Receive d Time (Source) Location / / Volume Laterality Blood (Blood, 05/30/2018 7:59 AM 05/31/19 19 8:01 Venous) CDT AM CDT Aleisha Gonzales M.D. LAB BLOOD ADD-ON Performing Organization Address City/State/ZIP Code Phon e Number [facility]- [id number] [address] [place] [facility] (ABNORMAL) Basic Metabolic Panel (05/30/2018 7:59 AM CDT) P athologist Signature Potassium, S 3.9 3.6 - 5.2 05/30/[address] [facility] mmol/L 8:53 AM CDT [facility] LAB Sodium, S 143 135 - 145 05/30/[address] [facility] mmol/L 8:53 AM T [facility] Chloride, S 106 98 - 107 05/30/[address] [facility] mmol/L 8:53 AM T [facility] LAB Bicarbonate, S 27 22 - 29 05/30/[address] [facility] mmol/L 8:53 AM [facility] LAB Anion Gap 10 7 - 15 05/30/[address] [facility] 8:53 AM [facility] LAB BUN (Blood Urea 15 6 - 21 05/30/[address] [facility] Nitrogen), S mg/dL 8:53 AM [facility] LAB Creatinine 0.95 0.59 - 05/30/[address] [facility] 1.04 mg/dL 8:53 AM [facility] LAB eGFR-Non 56 (L) >=60 05/30/[address] [facility] Black/ mL/min/BSA 8:53 AM [facility] LAB Comment: ----ADDITIONAL INFORMATION---- Estimated GFR calculated using the 2009 CKD_EPI creatinine equation. eGFR-Black/ 65 >=60 mL/min/BSA 2018 8:53 AM [facility] LAB Comment: ----ADDITIONAL INFORMATION---- Estimated GFR calculated using the 2009 CKD_EPI creatinine equation. Calcium, Total, S 9.6 8.8 - 10.2 mg/dL 05/30/2018 8 :53 AM CDT [facility] Glucose, S 115 70 - 140 mg/dL 05/30/2018 8:53 AM CDT [facility] LAB Specimen Anatomical Collection Method Collection Time Receive d Time (Source) Location / / Volume Laterality Blood (Blood, 05/30/2018 7:59 AM 05/31/19 19 8:01 Venous) CDT AM CDT Aleisha Gonzales M.D. LAB BLOOD ADD-ON Performing Organization Address City/State/ZIP Code Phon e Number [facility]- [address] [place] [address] [place] [address] [place] [facility] documented in this encounter Visit Diagnoses Diagnosis Hypertension Essential Primary documented in this encounter Care Teams Green Pipefitter Relationship Specialty Start Date End Date Aleisha Hermosillo M.D. PCP - General 08/18/[address] [place] [address] [place] [phone] documented as of this encounter
--- OUTSIDE RECORDS SUMMARY | 2022-01-04 09:35 | XMS_ITS | Encounter Summary ---
:1935 Author Organization [facility] Address [address] [place] [address] Care Team Providers Name Role Phone Aleisha Hermosillo M.D. Primary Care Provider [phone] Reason for Visit Reason Comments Med Refill Encounter Details Date Type Department Care Team Description 11/09/2018 Refill Department of [facility] Stephany Hermosillo Med Refill Medicine, [place] [facility], in [place] [phone] [place], [place] [phone] Social History Tobacco Use Types Packs/Day Years Used Date Smoking Tobacco: Never Smokeless Tobacco: Never Alcohol Use Standard Drinks/Week Comments No 0 (1 standard drink = 0.6 oz pure alcoho l) Sex Assigned at Date Recorded Not on file documented as of this encounter Miscellaneous Notes Telephone Encounter - Aleisha Hermosillo M.D. - 11/11/2018 6:23 AM CDT Rx filled. documented in this encounter Plan of Treatment Not on filedocumented as of this encounter Visit Diagnoses Not on filedocumented in this encounter Care Teams Director Community Center Relationship Specialty Start Date End Date Aleisha Hermosillo M.D. PCP - General 08/18/[address] [place] [phone] documented as of this encounter
--- OUTSIDE RECORDS SUMMARY | 2022-01-04 09:35 | XMS_ITS | Encounter Summary ---
:1935 Author Organization [facility] Address [address] [place] [address] Care Team Providers Name Role Phone Aleisha Hermosillo M.D. Primary Care Provider [phone] Reason for Visit Reason Comments Med Refill Encounter Details Date Type Department Care Team Description 01/25/2019 Refill Department of [facility] Stephany Hermosillo Med Refill Medicine, [place] [facility], in [place] [phone] [place], [place] [phone] Social History Tobacco Use Types Packs/Day Years Used Date Smoking Tobacco: Never Smokeless Tobacco: Never Alcohol Use Standard Drinks/Week Comments No 0 (1 standard drink = 0.6 oz pure alcoho l) Sex Assigned at Date Recorded Not on file documented as of this encounter Miscellaneous Notes Telephone Encounter - Aleisha Hermosillo M.D. - 01/26/2019 6:41 AM ACCOUNT DEVELOPMENT ASSOCIATE Rx filled. UNT DEVELOPMENT ASSOCIATE documented in this encounter Plan of Treatment Not on filedocumented as of this encounter Visit Diagnoses Not on filedocumented in this encounter Care Teams Enamel Sprayer Relationship Specialty Start Date End Date Aleisha Hermosillo M.D. PCP - General 08/18/[address] [place] [phone] documented as of this encounter
--- OUTSIDE RECORDS SUMMARY | 2022-01-04 09:35 | XMS_ITS | Encounter Summary ---
:1935 Author Organization [facility] Address [address] [place] [address] Care Team Providers Name Role Phone Aleisha Hermosillo M.D. Primary Care Provider [phone] Reason for Visit Reason Comments Med Refill Encounter Details Date Type Department Care Team Description 11/01/2018 Refill Department of [facility] Stephany Hermosillo Med Refill Medicine, [place] [facility], in [place] [phone] [place], [place] [phone] Social History Tobacco Use Types Packs/Day Years Used Date Smoking Tobacco: Never Smokeless Tobacco: Never Alcohol Use Standard Drinks/Week Comments No 0 (1 standard drink = 0.6 oz pure alcoho l) Sex Assigned at Date Recorded Not on file documented as of this encounter Miscellaneous Notes Telephone Encounter - Wyatt Wilkinson - 11/02/2018 7:19 AM CDT Patient should have refills remaining. documented in this encounter Plan of Treatment Not on filedocumented as of this encounter Visit Diagnoses Not on filedocumented in this encounter Care Teams Boat Driver Relationship Specialty Start Date End Date Aleisha Hermosillo M.D. PCP - General 08/18/[id number] [phone] documented as of this encounter
--- OUTSIDE RECORDS SUMMARY | 2022-01-04 09:35 | XMS_ITS | Encounter Summary ---
:1935 Author Organization [facility] Address [address] [place] [address] Care Team Providers Name Role Phone Aleisha Hermosillo M.D. Primary Care Provider [phone] Reason for Visit Reason Comments Med Refill Encounter Details Date Type Department Care Team Description 05/09/2018 Refill Department of Family Medicine, Kevin Canas, Med Refill [facility], in [id number] [place] [phone] [phone] Social History Tobacco Use Types Packs/Day Years Used Date Smoking Tobacco: Never Smokeless Tobacco: Never Alcohol Use Standard Drinks/Week Comments No 0 (1 standard drink = 0.6 oz pure alcoho l) Sex Assigned at Date Recorded Not on file documented as of this encounter Miscellaneous Notes Telephone Encounter - Aleisha Hermosillo M.D. - 05/09/2018 9:02 PM FRAME GATE MORTISER OPERATOR Rx filled. E GATE MORTISER OPERATOR documented in this encounter Plan of Treatment Not on filedocumented as of this encounter Visit Diagnoses Not on filedocumented in this encounter Care Teams Shipping Inspector Relationship Specialty Start Date End Date Aleisha Hermosillo M.D. PCP - General 08/18/[address] [place] [phone] documented as of this encounter
--- OUTSIDE RECORDS SUMMARY | 2022-01-04 09:36 | XMS_ITS | Encounter Summary ---
:1935 Author Organization [facility] Address [address] [place] [address] Care Team Providers Name Role Phone Aleisha Hermosillo M.D. Primary Care Provider [phone] Reason for Visit Reason Comments Med Refill Encounter Details Date Type Department Care Team Description 09/30/2017 Refill Department of [facility] Stephany Hermosillo Med Refill Medicine, [place] [facility], in [place] [phone] [place], [place] [phone] Social History Tobacco Use Types Packs/Day Years Used Date Smoking Tobacco: Never Smokeless Tobacco: Never Alcohol Use Standard Drinks/Week Comments No 0 (1 standard drink = 0.6 oz pure alcoho l) Sex Assigned at Date Recorded Not on file documented as of this encounter Miscellaneous Notes Telephone Encounter - Arline Dawson - 10/02/2017 8:08 AM CDT Duplicate Rx Request documented in this encounter Plan of Treatment Not on filedocumented as of this encounter Visit Diagnoses Not on filedocumented in this encounter Care Teams Reproduction Production Manager Relationship Specialty Start Date End Date Aleisha Hermosillo M.D. PCP - General 08/18/[id number] [phone] documented as of this encounter
--- OUTSIDE RECORDS SUMMARY | 2022-01-04 09:36 | XMS_ITS | Encounter Summary ---
:1935 Author Organization [facility] Address [address] [place] [address] Care Team Providers Name Role Phone Aleisha Hermosillo M.D. Primary Care Provider [phone] Reason for Visit Reason Comments Med Refill Encounter Details Date Type Department Care Team Description 09/29/2017 Refill Department of [facility] Stephany Hermosillo Med Refill Medicine, [place] [facility], in [place] [phone] [place], [place] [phone] Social History Tobacco Use Types Packs/Day Years Used Date Smoking Tobacco: Never Smokeless Tobacco: Never Alcohol Use Standard Drinks/Week Comments No 0 (1 standard drink = 0.6 oz pure alcoho l) Sex Assigned at Date Recorded Not on file documented as of this encounter Miscellaneous Notes Telephone Encounter - Arline Dawson - 09/29/2017 9:42 AM CDT Duplicate Rx Request documented in this encounter Plan of Treatment Not on filedocumented as of this encounter Visit Diagnoses Not on filedocumented in this encounter Care Teams Pipeline Inspector Relationship Specialty Start Date End Date Aleisha Hermosillo M.D. PCP - General 08/18/[id number] [phone] documented as of this encounter
--- OUTSIDE RECORDS SUMMARY | 2022-01-04 09:36 | XMS_ITS | Encounter Summary ---
:[address] [facility] Address [address] [place] [address] Care Team Providers Name Role Phone Aleisha Hermosillo M.D. Primary Care Provider [phone] Reason for Visit Reason Comments Med Refill Encounter Details Date Type Department Care Team Description 12/27/2017 Refill Department of [facility] Stephany Hermosillo Med Refill Medicine, [place] [facility], in [address] [address] [place], [place] [phone] Social History Tobacco Use Types Packs/Day Years [...] on filedocumented in this encounter Care Teams Die Machine Operator Relationship Specialty Start Date End Date Aleisha Hermosillo M.D. PCP - General 08/18/[address] [place] [phone] documented as of this encounter
--- OUTSIDE RECORDS SUMMARY | 2022-01-04 09:36 | XMS_ITS | Encounter Summary ---
:1935 Author Organization [facility] Address [address] [place] [address] Care Team Providers Name Role Phone Aleisha Hermosillo M.D. Primary Care Provider [phone] Reason for Visit Reason Comments Med Refill Encounter Details Date Type Department Care Team Description 01/24/2018 Refill Department of [facility] Stephany Hermosillo Med Refill Medicine, [place] [facility], in [address] [address] [place], [place] [address] [phone] Social History Tobacco Use Types Packs/Day Years [...] on filedocumented in this encounter Care Teams Consultant Dietitian Relationship Specialty Start Date End Date Aleisha Hermosillo M.D. PCP - General 08/18/[address] [place] [phone] documented as of this encounter
--- OUTSIDE RECORDS SUMMARY | 2022-01-04 09:36 | XMS_ITS | Encounter Summary ---
:1935 Author Organization [facility] Address [address] [place] [address] Care Team Providers Name Role Phone Aleisha Hermosillo M.D. Primary Care Provider [phone] Reason for Visit Reason Comments Med Refill Encounter Details Date Type Department Care Team Description 01/06/2018 Refill Department of [facility] Stephany Hermosillo Med Refill Medicine, [place] [facility], in [address] [address] [place], [place] [address] [phone] Social History Tobacco Use Types Packs/Day Years [...] on filedocumented in this encounter Care Teams Substation Operator Helper Generation Relationship Specialty Start Date End Date Aleisha Hermosillo M.D. PCP - General 08/18/[address] [place] [address] documented as of this encounter
--- OUTSIDE RECORDS SUMMARY | 2022-01-04 09:36 | XMS_ITS | Encounter Summary ---
:1935 Author Organization [facility] Address [address] [place] [address] Care Team Providers Name Role Phone Aleisha Hermosillo M.D. Primary Care Provider [phone] Reason for Visit Reason Comments Med Refill Encounter Details Date Type Department Care Team Description 12/09/2017 Refill Department of [facility] Stephany Hermosillo Med Refill Medicine, [place] [facility], in [place] [address] [place], [place] [address] [phone] Social History Tobacco Use Types Packs/Day Years Used Date Smoking Tobacco: Never Smokeless Tobacco: Never Alcohol Use Standard Drinks/Week Comments No 0 (1 standard drink = 0.6 oz pure alcoho l) Sex Assigned at Date Recorded Not on file documented as of this encounter Miscellaneous Notes Telephone Encounter - Ann Pierce C.M.A. - 12/11/2017 11:16 AM CDT Chlorthalizone still has remaining refills; Metoprolol 50mg dosage was dicontinued Telephone Encounter - Francheska Hawkins - 12/11/2017 9:54 AM CDT Metoprolol - strength doesn't match active med list Chlorthalidone - Patient should have refills remaining documented in this encounter Plan of Treatment Not on filedocumented as of this encounter Visit Diagnoses Not on filedocumented in this encounter Care Teams Institution Librarian Relationship Specialty Start Date End Date Aleisha Hermosillo M.D. PCP - General 08/18/[address] [place] [phone] documented as of this encounter
--- OUTSIDE RECORDS SUMMARY | 2022-01-04 09:36 | XMS_ITS | Encounter Summary ---
:1935 Author Organization [facility] Address [address] [place] [address] Care Team Providers Name Role Phone Aleisha Hermosillo M.D. Primary Care Provider Reason for Visit Reason Comments Med Refill Encounter Details Date Type Department Care Team Description 04/06/2018 Refill Department of [facility] Stephany Hermosillo Med Refill Medicine, [place] [facility], in [place] [phone] [place], [place] [address] [phone] Social History Tobacco Use Types Packs/Day Years Used Date Smoking Tobacco: Never Smokeless Tobacco: Never Alcohol Use Standard Drinks/Week Comments No 0 (1 standard drink = 0.6 oz pure alcoho l) Sex Assigned at Date Recorded Not on file documented as of this encounter Miscellaneous Notes Telephone Encounter - Aleisha Hermosillo M.D. - 04/06/2018 8:38 AM CROWN IRONER Rx filled. N IRONER documented in this encounter Plan of Treatment Not on filedocumented as of this encounter Visit Diagnoses Not on filedocumented in this encounter Care Teams Environmental Health Safety Manager Relationship Specialty Start Date End Date Aleisha Hermosillo M.D. PCP - General 08/18/[address] [place] [phone] documented as of this encounter
--- OUTSIDE RECORDS SUMMARY | 2022-01-04 09:36 | XMS_ITS | Encounter Summary ---
:1935 Author Organization [facility] Address [address] [place] [address] Care Team Providers Name Role Phone Aleisha Hermosillo M.D. Primary Care Provider [phone] Reason for Visit Reason Comments Med Refill Encounter Details Date Type Department Care Team Description 05/01/2018 Refill Department of Family Medicine, [place], Med Refill [facility], in [id number] [place] [address] [phone] Social History Tobacco Use Types Packs/Day Years Used Date Smoking Tobacco: Never Smokeless Tobacco: Never Alcohol Use Standard Drinks/Week Comments No 0 (1 standard drink = 0.6 oz pure alcoho l) Sex Assigned at Date Recorded Not on file documented as of this encounter Miscellaneous Notes Telephone Encounter - Nazia Cool - 05/01/2018 12:29 PM CST Duplicate Rx Request [facility] [place] E-Prescribing Status: Receipt confirmed by pharmacy (04/06/2018 8:[address]) Qty: 180, Ref: [address] documented in this encounter Plan of Treatment Not on filedocumented as of this encounter Visit Diagnoses Not on filedocumented in this encounter Care Teams Glass Checker Relationship Specialty Start Date End Date Aleisha Hermosillo M.D. PCP - General 08/18/[address] [place] [phone] documented as of this encounter
--- OUTSIDE RECORDS SUMMARY | 2022-01-04 09:36 | XMS_ITS | Encounter Summary ---
:1935 Author Organization [facility] Address [address] [place] [address] Care Team Providers Name Role Phone Aleisha Hermosillo M.D. Primary Care Provider [phone] Reason for Visit Reason Comments Med Refill Encounter Details Date Type Department Care Team Description 03/26/2018 Refill Department of [facility] Stephany Hermosillo Med Refill Medicine, [place] [facility], in [place] [phone] [place], [place] [address] [phone] Social History Tobacco Use Types Packs/Day Years Used Date Smoking Tobacco: Never Smokeless Tobacco: Never Alcohol Use Standard Drinks/Week Comments No 0 (1 standard drink = 0.6 oz pure alcoho l) Sex Assigned at Date Recorded Not on file documented as of this encounter Miscellaneous Notes Telephone Encounter - Aleisha Hermosillo M.D. - 03/26/2018 2:10 PM ADVERTISING ASSISTANT Rx filled. RTISING ASSISTANT documented in this encounter Plan of Treatment Not on filedocumented as of this encounter Visit Diagnoses Not on filedocumented in this encounter Care Teams Brake Drum Molder Relationship Specialty Start Date End Date Aleisha Hermosillo M.D. PCP - General 08/18/[address] [place] [phone] documented as of this encounter
--- OUTSIDE RECORDS SUMMARY | 2022-01-04 09:36 | XMS_ITS | Encounter Summary ---
:1935 Author Organization [facility] Address [address] [place] [address] Care Team Providers Name Role Phone Aleisha Hermosillo M.D. Primary Care Provider [phone] Reason for Visit Reason Comments Med Refill Encounter Details Date Type Department Care Team Description 01/26/2018 Refill Department of [facility] Stephany Hermosillo Med Refill Medicine, [place] [facility], in [place] [phone] [place], [place] [address] [phone] Social History Tobacco Use Types Packs/Day Years Used Date Smoking Tobacco: Never Smokeless Tobacco: Never Alcohol Use Standard Drinks/Week Comments No 0 (1 standard drink = 0.6 oz pure alcoho l) Sex Assigned at Date Recorded Not on file documented as of this encounter Miscellaneous Notes Telephone Encounter - Wyatt Wilkinson - 01/26/2018 9:09 AM CST Patient should have refills remaining. [employer] documented in this encounter Plan of Treatment Not on filedocumented as of this encounter Visit Diagnoses Not on filedocumented in this encounter Care Teams Support Manager Relationship Specialty Start Date End Date Aleisha Hermosillo M.D. PCP - General 08/18/[address] [phone] documented as of this encounter
--- OUTSIDE RECORDS SUMMARY | 2022-01-04 09:36 | XMS_ITS | Encounter Summary ---
:1935 Author Organization [facility] Address [address] [place] [address] Care Team Providers Name Role Phone Aleisha Hermosillo M.D. Primary Care Provider [phone] Reason for Visit Reason Comments Med Refill Encounter Details Date Type Department Care Team Description 03/18/2018 Refill Department of [facility] Stephany Hermosillo Med Refill Medicine, [place] [facility], in [place] [phone] [place], [place] [address] [phone] Social History Tobacco Use Types Packs/Day Years Used Date Smoking Tobacco: Never Smokeless Tobacco: Never Alcohol Use Standard Drinks/Week Comments No 0 (1 standard drink = 0.6 oz pure alcoho l) Sex Assigned at Date Recorded Not on file documented as of this encounter Miscellaneous Notes Telephone Encounter - Aleisha Hermosillo M.D. - 03/19/2018 2:29 PM SWINGING CUT OFF SAW OPERATOR Rx filled. GING CUT OFF SAW OPERATOR documented in this encounter Plan of Treatment Not on filedocumented as of this encounter Visit Diagnoses Not on filedocumented in this encounter Care Teams Financial Services Auditor Relationship Specialty Start Date End Date Aleisha Hermosillo M.D. PCP - General 08/18/[address] [place] [phone] documented as of this encounter
--- OUTSIDE RECORDS SUMMARY | 2022-01-04 09:36 | XMS_ITS | Encounter Summary ---
:1935 Author Organization [facility] Address [address] [place] [address] Care Team Providers Name Role Phone Aleisha Hermosillo M.D. Primary Care Provider [phone] Reason for Visit Reason Comments Med Refill Encounter Details Date Type Department Care Team Description 01/21/2018 Refill Department of [facility] Stephany Hermosillo Med Refill Medicine, [place] [facility], in [place] [phone] [place], [place] [address] [phone] Social History Tobacco Use Types Packs/Day Years Used Date Smoking Tobacco: Never Smokeless Tobacco: Never Alcohol Use Standard Drinks/Week Comments No 0 (1 standard drink = 0.6 oz pure alcoho l) Sex Assigned at Date Recorded Not on file documented as of this encounter Miscellaneous Notes Telephone Encounter - Francheska Hawkins - 01/22/2018 7:54 AM CST Patient should have refills remaining ER documented in this encounter Plan of Treatment Not on filedocumented as of this encounter Visit Diagnoses Not on filedocumented in this encounter Care Teams Electrical Design Technician Relationship Specialty Start Date End Date Aleisha Hermosillo M.D. PCP - General 08/18/[id number] [phone] documented as of this encounter
--- OUTSIDE RECORDS SUMMARY | 2022-01-04 09:36 | XMS_ITS | Encounter Summary ---
:1935 Author Organization [facility] Address [address] [place] [address] Care Team Providers Name Role Phone Aleisah Hermosillo M.D. Primary Care Provider Reason for Visit Reason Comments Med Refill Encounter Details Date Type Department Care Team Description 04/06/2018 Refill Department of [facility] Stephany Hermosillo Med Refill Medicine, [place] [facility], in [place] [phone] [place], [place] [address] [phone] Social History Tobacco Use Types Packs/Day Years Used Date Smoking Tobacco: Never Smokeless Tobacco: Never Alcohol Use Standard Drinks/Week Comments No 0 (1 standard drink = 0.6 oz pure alcoho l) Sex Assigned at Date Recorded Not on file documented as of this encounter Miscellaneous Notes Telephone Encounter - Aleisha Hermosillo M.D. - 04/06/2018 8:38 AM GANG INVESTIGATOR Rx filled. INVESTIGATOR documented in this encounter Plan of Treatment Not on filedocumented as of this encounter Visit Diagnoses Not on filedocumented in this encounter Care Teams Shoe Salesperson Relationship Specialty Start Date End Date Aleisha Hermosillo M.D. PCP - General 08/18/[address] [place] [phone] documented as of this encounter
--- OUTSIDE RECORDS SUMMARY | 2022-01-04 09:36 | XMS_ITS | Encounter Summary ---
:1935 Author Organization [facility] Address [address] [place] [address] Care Team Providers Name Role Phone Aleisha Hermosillo M.D. Primary Care Provider [phone] Reason for Visit Reason Comments Med Refill Encounter Details Date Type Department Care Team Description 12/19/2017 Refill Department of [facility] Stephany Hermosillo Med Refill Medicine, [place] [facility], in [place] [phone] [place], [place] [address] [phone] Social History Tobacco Use Types Packs/Day Years Used Date Smoking Tobacco: Never Smokeless Tobacco: Never Alcohol Use Standard Drinks/Week Comments No 0 (1 standard drink = 0.6 oz pure alcoho l) Sex Assigned at Date Recorded Not on file documented as of this encounter Miscellaneous Notes Telephone Encounter - Francheska Hawkins - 12/19/2017 8:59 AM CDT Rx request strength does not match active med list documented in this encounter Plan of Treatment Not on filedocumented as of this encounter Visit Diagnoses Not on filedocumented in this encounter Care Teams Director Family Relationship Specialty Start Date End Date Aleisha Hermosillo M.D. PCP - General 08/18/[address] [phone] documented as of this encounter
--- OUTSIDE RECORDS SUMMARY | 2022-01-04 09:36 | XMS_ITS | Encounter Summary ---
:1935 Author Organization [facility] Address [address] [place] [address] Care Team Providers Name Role Phone Aleisha Hermosillo M.D. Primary Care Provider [phone] Reason for Visit Reason Comments Med Refill Encounter Details Date Type Department Care Team Description 01/02/2018 Refill Department of [facility] Stephany Hermosillo Med Refill Medicine, [place] [facility], in [place] [phone] [place], [place] [address] [phone] Social History Tobacco Use Types Packs/Day Years Used Date Smoking Tobacco: Never Smokeless Tobacco: Never Alcohol Use Standard Drinks/Week Comments No 0 (1 standard drink = 0.6 oz pure alcoho l) Sex Assigned at Date Recorded Not on file documented as of this encounter Miscellaneous Notes Telephone Encounter - Francheska Hawkins - 01/02/2018 10:31 AM CDT Please verify strength, dosing and directions documented in this encounter Plan of Treatment Not on filedocumented as of this encounter Visit Diagnoses Not on filedocumented in this encounter Care Teams Solution Design Engineer Relationship Specialty Start Date End Date Aleisha Hermosillo M.D. PCP - General 08/18/[address] [phone] documented as of this encounter
--- OUTSIDE RECORDS SUMMARY | 2022-01-04 09:36 | XMS_ITS | Encounter Summary ---
:1935 Author Organization [facility] Address [address] [place] [address] Care Team Providers Name Role Phone Aleisha Hermosillo M.D. Primary Care Provider [phone] Reason for Visit Reason Comments Med Refill Encounter Details Date Type Department Care Team Description 02/07/2018 Refill Department of [facility] Stephany Hermosillo Med Refill Medicine, [place] [facility], in [address] [address] [place], [place] [address] [phone] Social History Tobacco Use Types Packs/Day Years [...] on filedocumented in this encounter Care Teams Body Wirer Relationship Specialty Start Date End Date Aleisha Hermosillo M.D. PCP - General 08/18/[address] [place] [phone] documented as of this encounter
--- OUTSIDE RECORDS SUMMARY | 2022-01-04 09:36 | XMS_ITS | Encounter Summary ---
:1935 Author Organization [facility] Address [address] [place] [address] Care Team Providers Name Role Phone Aleisha Hermosillo M.D. Primary Care Provider [phone] Reason for Visit Reason Comments Med Refill Encounter Details Date Type Department Care Team Description 02/27/2018 Refill Department of [facility] Stephany Hermosillo Med Refill Medicine, [place] [facility], in [place] [address] [place], [place] [address] [phone] Social History Tobacco Use Types Packs/Day Years Used Date Smoking Tobacco: Never Smokeless Tobacco: Never Alcohol Use Standard Drinks/Week Comments No 0 (1 standard drink = 0.6 oz pure alcoho l) Sex Assigned at Date Recorded Not on file documented as of this encounter Miscellaneous Notes Telephone Encounter - Aleisha Hermosillo M.D. - 02/28/2018 2:24 PM ASSEMBLER DIELECTRIC HEATER Rx filled. MBLER DIELECTRIC HEATER documented in this encounter Plan of Treatment Not on filedocumented as of this encounter Visit Diagnoses Not on filedocumented in this encounter Care Teams Career Technology Teacher Relationship Specialty Start Date End Date Aleisha Hermosillo M.D. PCP - General 08/18/[address] [place] [phone] documented as of this encounter
--- OUTSIDE RECORDS SUMMARY | 2022-01-04 09:36 | XMS_ITS | Encounter Summary ---
:1935 Author Organization [facility] Address [address] [place] [address] Care Team Providers Name Role Phone Aleisha Hermosillo M.D. Primary Care Provider Reason for Visit Reason Comments Med Refill Encounter Details Date Type Department Care Team Description 01/17/2018 Refill Department of [facility] Stephany Hermosillo Med Refill Medicine, [place] [facility], in [address] [address] [place], [place] [address] [phone] Social History Tobacco Use Types Packs/Day Years [...] on filedocumented in this encounter Care Teams Shook Splicer Relationship Specialty Start Date End Date Aleisha Hermosillo M.D. PCP - General 08/18/[address] [place] [phone] documented as of this encounter
--- OUTSIDE RECORDS SUMMARY | 2022-01-04 09:36 | XMS_ITS | Encounter Summary ---
:1935 Author Organization [facility] Address [address] [place] [address] Care Team Providers Name Role Phone Aleisha Hermosillo M.D. Primary Care Provider [phone] Reason for Visit Reason Comments Med Refill Encounter Details Date Type Department Care Team Description 04/20/2018 Refill Department of Family Medicine, [place], Med Refill [facility], in [phone] [place] [address] [phone] Social History Tobacco Use Types Packs/Day Years Used Date Smoking Tobacco: Never Smokeless Tobacco: Never Alcohol Use Standard Drinks/Week Comments No 0 (1 standard drink = 0.6 oz pure alcoho l) Sex Assigned at Date Recorded Not on file documented as of this encounter Miscellaneous Notes Telephone Encounter - Monica Duenas - 04/20/2018 9:51 AM CST Duplicate EQUIPMENT SALES REPRESENTATIVE documented in this encounter Plan of Treatment Not on filedocumented as of this encounter Visit Diagnoses Not on filedocumented in this encounter Care Teams Sales Producer Relationship Specialty Start Date End Date Aleisha Hermosillo M.D. PCP - General 08/18/[address] [phone] documented as of this encounter
--- OUTSIDE RECORDS SUMMARY | 2022-01-04 09:36 | XMS_ITS | Encounter Summary ---
:1935 Author Organization [facility] Address [address] [place] [address] Care Team Providers Name Role Phone Aleisha Hermosillo M.D. Primary Care Provider [phone] Reason for Visit Reason Comments Med Refill Encounter Details Date Type Department Care Team Description 02/26/2018 Refill Department of [facility] Stephany Hermosillo Med Refill Medicine, [place] [facility], in [place] [phone] [place], [place] [phone] Social History Tobacco Use Types Packs/Day Years Used Date Smoking Tobacco: Never Smokeless Tobacco: Never Alcohol Use Standard Drinks/Week Comments No 0 (1 standard drink = 0.6 oz pure alcoho l) Sex Assigned at Date Recorded Not on file documented as of this encounter Miscellaneous Notes Telephone Encounter - Janeth Matthew L.PKaiN. - 02/28/2018 2:50 PM WINDOWS SOFTWARE ENGINEER LVM on secured vm with message to come in for appt in 3 months before further refills on Losartan OWS SOFTWARE ENGINEER documented in this encounter Plan of Treatment Not on filedocumented as of this encounter Visit Diagnoses Not on filedocumented in this encounter Care Teams Brand Sales Manager Relationship Specialty Start Date End Date Aleisha Hermosillo M.D. PCP - General 08/18/[address] [place] [phone] documented as of this encounter
--- OUTSIDE RECORDS SUMMARY | 2022-01-04 09:36 | XMS_ITS | Encounter Summary ---
:1935 Author Organization [facility] Address [address] [place] [address] Care Team Providers Name Role Phone Aleisha Hermosillo M.D. Primary Care Provider [phone] Reason for Visit Reason Comments Med Refill Encounter Details Date Type Department Care Team Description 12/20/2017 Refill Department of [facility] Stephany Hermosillo Med Refill Medicine, [place] [facility], in [place] [phone] [place], [place] [address] [phone] Social History Tobacco Use Types Packs/Day Years Used Date Smoking Tobacco: Never Smokeless Tobacco: Never Alcohol Use Standard Drinks/Week Comments No 0 (1 standard drink = 0.6 oz pure alcoho l) Sex Assigned at Date Recorded Not on file documented as of this encounter Miscellaneous Notes Telephone Encounter - Edith Michaels L.PKaiN. - 12/20/2017 2:59 PM CDT Duplicate request Telephone Encounter - Edith Michaels L.PMatti - 12/20/2017 2:42 PM CDT This was addressed and submitted for refill 12/19/2017 Telephone Encounter - Wyatt Wilkinson - 12/20/2017 2:23 PM CDT Please advise on medication request. MG of request differs from medication list. documented in this encounter Plan of Treatment Not on filedocumented as of this encounter Visit Diagnoses Not on filedocumented in this encounter Care Teams Double Corner Cutter Relationship Specialty Start Date End Date Aleisha Hermosillo M.D. PCP - General 08/18/[address] [place] [phone] documented as of this encounter
--- OUTSIDE RECORDS SUMMARY | 2022-01-04 09:36 | XMS_ITS | Encounter Summary ---
:1935 Author Organization [facility] Address [address] [place] [address] Care Team Providers Name Role Phone Aleisha Hermosillo M.D. Primary Care Provider [phone] Reason for Referral Outpatient (Routine) - Closed Specialty Diagnoses / Procedures Referred By Contact Refer red To Contact Family Medicine Aleisha Hermosillo ANABEL Rust M.D. [address] [place] [phone] Referral ID Status Reason Start Date Expiration Date Visits Requ ested Visits Authorized [id number] Closed 02/28/2018 02/28/2019 1 1 CHANGER Encounter Details Date Type Department Care Team Description 02/28/2018 Orders Only Department of [facility] Mikala Hermosillo ypertension Essential Medicine, Keith Rust M.D. Primary (Primary Dx) [facility], [address] [address] [place], [place] [phone] (W ork) [id number] [phone] Social History Tobacco Use Types Packs/Day Years Used Date Smoking Tobacco: Never Smokeless Tobacco: Never Alcohol Use Standard Drinks/Week Comments No 0 (1 standard drink = 0.6 oz pure alcoho l) Sex Assigned at Date Recorded Not on file documented as of this encounter Plan of Treatment Scheduled Referrals Name Type Priority Associated Diagnoses Order S [facility] Family Medicine Outpatient Referral Routine Expec kira: office visit 05/29/2018 (clinic) - Self (Approximate ), Expires: 02/28/2019 documented as of this encounter Results Lipid Panel (05/30/2018 7:59 AM CDT) P athologist Signature Cholesterol, 180 mg/dL 05/30/2018 [facility] Total 8:53 AM CDT [facility] Comment: ----REFERENCE VALUE---- Desirable: < 200 Borderline high: 200 - 239 High: > or = 240 Triglycerides 109 mg/dL 05/30/2018 8:53 AM CDT [facility] Comment: ----REFERENCE VALUE---- Normal: <150 Borderline high: 150-199 High: 200-499 Very high: > or =500 Cholesterol, HDL, S 50 >=50 mg/dL 05/30/2018 8:53 AM CDT [facility] Calculated LDL 108 mg/dL 05/30/2018 8:53 AM CDT [facility] Comment: ----REFERENCE VALUE---- Desirable: <100 Above Desirable: 100-129 Borderline high: 130-159 High: 160-189 Very high: > or =190 Cholesterol, Non-HDL, 130 mg/dL 05/30/2018 8:53 AM CDT [facility] [employer] [facility] Comment: ----REFERENCE VALUE---- Desirable: <130 Above Desirable: 130-159 Borderline high: 160-189 High: 190-219 Very high: > or =220 Specimen Anatomical Collection Method Collection Time Receive d Time (Source) Location / / Volume Laterality Blood (Blood, 05/30/2018 7:59 AM 05/31/19 19 8:01 Venous) CDT AM CDT Aleisha Gonzales M.D. LAB BLOOD ADD-ON Performing Organization Address City/State/ZIP Code Phon e Number [facility]- [id number] [address] [place] [facility] (ABNORMAL) Basic Metabolic Panel (05/30/2018 7:59 AM CDT) P athologist Signature Potassium, S 3.9 3.6 - 5.2 05/30/2018 [facility] mmol/L 8:53 AM [facility] Sodium, S 143 135 - 145 05/30/2018 [facility] mmol/L 8:53 AM [facility] Chloride, S 106 98 - 107 05/30/2018 [facility] mmol/L 8:53 AM [facility] Bicarbonate, S 27 22 - 29 05/30/2018 [facility] mmol/L 8:53 AM [facility] Anion Gap 10 7 - 15 05/30/2018 [facility] 8:53 AM [facility] BUN (Blood Urea 15 6 - 21 05/30/2018 [facility] Nitrogen), S mg/dL 8:53 AM [facility] Creatinine 0.95 0.59 - 05/30/2018 [facility] 1.04 mg/dL 8:53 AM [facility] eGFR-Non 56 (L) >=60 05/30/2018 [facility] Black/ mL/min/BSA 8:[address] [facility] Comment: ----ADDITIONAL INFORMATION---- Estimated GFR calculated using the 2009 CKD_EPI creatinine equation. eGFR-Black/ 65 >=60 mL/min/BSA 2018 8:53 AM [facility] Comment: ----ADDITIONAL INFORMATION---- Estimated GFR calculated using the 2009 CKD_EPI creatinine equation. Calcium, Total, S 9.6 8.8 - 10.2 mg/dL 05/30/2018 8 :53 AM T [facility] Glucose, S 115 70 - 140 mg/dL 05/30/2018 8:53 AM CDT [facility] Specimen Anatomical Collection Method Collection Time Receive d Time (Source) Location / / Volume Laterality Blood (Blood, 05/30/2018 7:59 AM 05/31/19 19 8:01 Venous) CDT AM CDT Aleisha Gonzales M.D. LAB BLOOD ADD-ON Performing Organization Address City/State/ZIP Code Phon e Number [facility]- [address] [place] [address] [place] [facility] documented in this encounter Visit Diagnoses Diagnosis Hypertension Essential Primary - Primary documented in this encounter Care Teams Magician/Illusionist Relationship Specialty Start Date End Date Aleisha Hermosillo M.D. PCP - General 08/18/[id number] [place] [address] documented as of this encounter
--- OUTSIDE RECORDS SUMMARY | 2022-01-04 09:37 | XMS_ITS | Encounter Summary ---
:1935 Author Organization [facility] Address [address] [place] [address] Care Team Providers Name Role Phone Aleisha Hermosillo M.D. Primary Care Provider [phone] Encounter Details Date Type Department Care Team Description 11/09/2016 Hospital Encounter HX [facility] Aleisha Melgoza M.D. [address] [place] [phone] (Wo rk) Social History Tobacco Use Types Packs/Day Years Used Date Smoking Tobacco: Never Sex Assigned at Date Recorded Not on file documented as of this encounter Last Filed Vital Signs Vital Sign Reading Time Taken Comments Blood Pressure 166/45 11/09/2016 12:43 PM CDT Pulse 68 11/09/2016 12:43 PM CDT Temperature - - Respiratory Rate 16 11/09/2016 12:03 PM CDT Oxygen Saturation - - Inhaled Oxygen Concentration - - Weight - - Height - - Body Mass Index - - documented in this encounter Medications at Time of Discharge Medication Sig Dispensed Refills Start Date End Date allopurinol (for_ZYLOPRIM) Take 1 tablet by 0 08/201606/07/2017 100 mg tablet mouth daily. aspirin [address] tablet Take 1 tablet by 0 201401/21/2019 mouth daily. atenolol (for_TENORMIN) 50 Take 1 tablet by 0 05/ 05/04/2017 mg tablet mouth daily. biotin 10,000 mcg Take by mouth 0 08/25/201405/05 tablet,disintegrating daily. CALCIUM CARB/VIT Take by mouth 0 11/09/201001/21 D3/MINERALS daily. (CALCIUM-VITAMIN D ORAL) chlorthalidone Take 1 tablet by 0 02/24/2016/10/2016 (for_HYGROTEN) 25 mg mouth daily. tablet colchicine (for_COLCRYS) as needed. 0 09/20/2016 03/22/2017 0.6 mg tablet furosemide (LASIX) 20 mg Take 1 tablet by 0 02/2301/20/2017 tablet mouth daily. losartan (for_COZAAR) 100 Take 1 tablet by 0 06/201601/14/2017 mg tablet mouth daily. memantine (NAMENDA XR) 7 Take 1 capsule by 0 02/0406/07/2017 mg 24 hr capsule mouth daily. metoprolol tartrate Take 1 tablet by 0 10/21/2016 05/07/2017 (for_LOPRESSOR) 50 mg mouth 2 (two) times tablet a day. owocf-7r-qwg-epa-fish oil Take 1 capsule by 0 08/201005/30/2018 1,400 mg/5 mL liquid mouth daily. potassium chloride Take 1 tablet by 0 01/07/2016 02/06/2017 (for_KLOR-CON M) 10 mEq ER mouth 2 (two) times tablet a day. predniSONE (for_DELTASONE) daily. 0 7 05/30/2018 20 mg tablet sertraline (ZOLOFT) 50 mg Take 1 tablet by 0 05/201601/11/2017 tablet mouth daily. documented as of this encounter Plan of Treatment Not on filedocumented as of this encounter Visit Diagnoses Not on filedocumented in this encounter Care Teams Director Health Relationship Specialty Start Date End Date Aleisha Hermosillo M.D. PCP - General 08/18/[id number] [address] documented as of this encounter
--- OUTSIDE RECORDS SUMMARY | 2022-01-04 09:37 | XMS_ITS | Encounter Summary ---
:1935 Author Organization [facility] Address [address] [place] [address] Care Team Providers Name Role Phone Aleisha Hermosillo M.D. Primary Care Provider [phone] Reason for Visit Reason Onset Date Comments Med Refill 01/14/2017 Losartan Encounter Details Date Type Department Care Team Description 01/14/2017 Refill Department of Family Clara Jackson M ed Refill (Losartan) Medicine, [facility], in [address] [address] [place] [phone] Social History Tobacco Use Types Packs/Day Years Used Date Smoking Tobacco: Never Sex Assigned at Date Recorded Not on file documented as of this encounter Plan of Treatment Not on filedocumented as of this encounter Visit Diagnoses Not on filedocumented in this encounter Care Teams Plating Tank Operator Apprentice Relationship Specialty Start Date End Date Aleisha Hermosillo M.D. PCP - General 08/18/[address] [place] [phone] documented as of this encounter
--- OUTSIDE RECORDS SUMMARY | 2022-01-04 09:37 | XMS_ITS | Encounter Summary ---
:1935 Author Organization [facility] Address [address] [place] [address] Care Team Providers Name Role Phone Aleisha Hermosillo M.D. Primary Care Provider [phone] Reason for Visit Reason Comments Med Refill Encounter Details Date Type Department Care Team Description 03/22/2017 Refill Department of [facility] Med Refill Medicine, [facility], in [address] [address] [place], [place] [address] [phone] Social History Tobacco Use Types Packs/Day Years Used Date Smoking Tobacco: Never Sex Assigned at Date Recorded Not on file documented as of this encounter Miscellaneous Notes Telephone Encounter - Yusra Jaquez R.N. - 03/22/2017 4:58 PM CST Script faxed to [facility] [employer] SUPPORT ANALYST documented in this encounter Plan of Treatment Not on filedocumented as of this encounter Visit Diagnoses Not on filedocumented in this encounter Care Teams Investment Representative Relationship Specialty Start Date End Date Aleisha Hermosillo M.D. PCP - General 08/18/[address] [address] documented as of this encounter
--- OUTSIDE RECORDS SUMMARY | 2022-01-04 09:37 | XMS_ITS | Encounter Summary ---
:1935 Author Organization [facility] Address [address] [place] [address] Care Team Providers Name Role Phone Aleisha Hermosillo M.D. Primary Care Provider [phone] Reason for Visit Reason Comments Hypertension Encounter Details Date Type Department Care Team Description 06/07/2017 Office Visit Department of Family Saima Hermosillo (Primary Dx); MedicineKeith M.D. Hypertensive Heart Disease Without Heart Failure; [facility], in [address] [place] [address] Gout; [place], [facility] Anxiety; [place], [place] Regurgitation Aortic [address] [place] [address] [address] [address] [place], [place] [phone] (Work) [phone] Social History Tobacco Use Types Packs/Day Years Used Date Smoking Tobacco: Never Smokeless Tobacco: Never Alcohol Use Standard Drinks/Week Comments No 0 (1 standard drink = 0.6 oz pure alcoho l) Sex Assigned at Date Recorded Not on file documented as of this encounter Last Filed Vital Signs Vital Sign Reading Time Taken Comments Blood Pressure 126/50 06/07/2017 8:17 AM CDT Pulse 65 06/07/2017 8:17 AM CDT Temperature 36.7 ??C (98.1 ??F) 06/07/2017 8:17 AM CDT Respiratory Rate 16 06/07/2017 8:17 AM CDT Oxygen Saturation 98% 06/07/2017 8:17 AM CDT Inhaled Oxygen Concentration - - Weight 58.2 kg (128 lb 4.9 oz) 06/07/2017 8:17 AM CDT Height 162 cm (5' 3.78) 06/07/2017 8:17 AM CDT Body Mass Index 22.18 06/07/2017 8:17 AM CDT documented in this encounter Progress Notes Aleisha Hermosillo M.D. - 06/07/2017 8:15 AM CDT CHIEF COMPLAINT / REASON FOR VISIT Janeth Duenas is a 82 y.o. female who presents for evaluation of Hypertension. HISTORY OF PRESENT ILLNESS Janeth presents alone today for follow-up. She has no concerns. She saw cardiology and had an echocardiogram which was unchanged. They did not recommend any change in her treatment. She reports that herenergy is good and she denies any difficulty with chest pain or shortness of breath. Mood has been good and anxiety is okay. She describes her memory as okay. She is doing most of the cooking per her report and continues to drive. She wonders if she might have gout starting in her left foot. She denies any side effects with her medications. Brief Review of Systems: A brief review of systems was negative except for that mentioned in the history of present of illness. Current Outpatient Medications Medication Sig ??? allopurinol (for_ZYLOPRIM) 100 mg tablet Take 1 tablet (100 mg total) by mouth daily. ??? aspirin [address] tablet Take 1 tablet by mouth daily. ??? biotin 10,000 mcg tablet,disintegrating Take by mouth daily. ??? CALCIUM CARB/VIT D3/MINERALS (CALCIUM-VITAMIN D ORAL) Take by mouth daily. ??? chlorthalidone (for_HYGROTEN) 25 mg tablet Take 1 tablet (25 mg total) by mouth daily. ??? colchicine (for_COLCRYS) 0.6 mg tablet Take 2 tablets by mouth at first sign of gout flare, followed by 1 tablet one hour later (max of 3 tablets per attack) do not repeat for 3 days ??? donepezil (for_ARICEPT) 10 mg tablet Take 1 tablet (10 mg total) by mouth at bedtime. ??? furosemide (LASIX) 20 mg tablet Take 1 tablet (20 mg total) by mouth daily. ??? losartan (for_COZAAR) 100 mg tablet Take 1 tablet (100 mg total) by mouth daily. For blood pressure. ??? memantine 14 mg capsule,sprinkle,ER 24hr Take 1 capsule (14 mg total) by mouth daily. ??? metoprolol tartrate (for_LOPRESSOR) 25 mg tablet Take 1 tablet (25 mg total) by mouth 2 (two) times a day. ??? ilgkf-7t-fbv-epa-fish oil 1,400 mg/5 mL liquid Take 1 capsule by mouth daily. ??? potassium chloride (for_KLOR-CON M) 10 mEq ER tablet Take 1 tablet (10 mEq total) by mouth 2 (two) times a day. ??? predniSONE (for_DELTASONE) 20 mg tablet ??? sertraline (ZOLOFT) 50 mg tablet Take 1 tablet (50 mg total) by mouth daily. Allergies Allergen Reactions ??? Lisinopril Other (see comments) Tickle in throat x 3 weeks with no other reason PHYSICAL EXAM BP (!) 126/50 (BP Location: Left arm, Patient Position: Sitting, Cuff Size: Regular) Pulse 65 Temp 36.7 ??C (Temporal) Resp 16 Ht 162 cm Wt 58.2 kg SpO2 98% BMI 22.18 kg/m?? Body mass index is 22.18 kg/m??. General: Alert and oriented. No acute distress. Neck: Supple. No lymphadenopathy. Murmur radiates to carotids. Cardiovascular exam: Regular rate and rhythm. Normal S1 and S2. 2/6 systolic murmur. Lungs: Clear to auscultation bilaterally. Extremities: No pedal edema. Tenderness to palpation of the left midfoot. DIAGNOSTICS: Results for orders placed or performed in visit on 06/07/17 BMP (Basic Metabolic Panel) Result Value Ref Range Potassium, S 3.4 (L) 3.6 - 5.2 mmol/L Sodium, S 142 135 - 145 mmol/L Chloride, S 97 (L) 98 - 107 mmol/L Bicarbonate, S 29 22 - 29 mmol/L Anion Gap 16 (H) 7 - 15 Bld Urea Nitrog(BUN), S 26 (H) 6 - 21 mg/dL Creatinine, S 1.14 (H) 0.59 - 1.04 mg/dL eGFR-Non Black 45 (L) >=60 mL/min/BSA eGFR-Black 52 (L) >=60 mL/min/BSA Calcium, Total, S 9.7 8.9 - 10.1 mg/dL Glucose, S 108 70 - 140 mg/dL Uric Acid Result Value Ref Range Uric Acid, S 8.6 (H) 2.7 - 6.1 mg/dL ASSESSMENT/PLAN: #1 Dementia We are going to increase Aricept to 10 mg daily and Namenda ER to 40 mg daily. Again discussed that patient needs to retire from driving. We will update her . #2 Hypertensive Heart Disease Without Heart Failure Continue current medications. Creatinine is stable. #3 Gout Uric acid level is elevated. We will increase her allopurinol. #4 Anxiety Continue SSRI. #5 Regurgitation Aortic Reviewed cardiology note. Patient is reportedly asymptomatic. documented in this encounter Plan of Treatment Not on filedocumented as of this encounter Procedures Procedure Name Priority Date/Time Associated Diagnosis Comme nts URIC ACID, S/P Routine 06/07/2017 9:04 AM Gout Results for this CDT procedure are i n the results section. BASIC METABOLIC Routine 06/07/2017 9:04 AM Hypertensive Heart Results for this PANEL, S/P CDT Disease Without Heart proced ure are in Failure the results section. documented in this encounter Results (ABNORMAL) Uric Acid (06/07/2017 9:04 AM CDT) P athologist Signature Uric Acid, S 8.6 (H) 2.7 - 6.1 06/07/2017 [facility] mg/dL 10:13 AM CDT [facility] Specimen Anatomical Collection Method Collection Time Receive d Time (Source) Location / / Volume Laterality Blood (Blood, 06/07/2017 9:04 AM 06/08/19 18 9:08 Venous) CDT AM CDT Aleisha Gonzales M.D. LAB BLOOD ADD-ON Performing Organization Address City/State/ZIP Code Phon e Number [facility]- [id number] [address] [place] [facility] (ABNORMAL) BMP (Basic Metabolic Panel) (06/07/2017 9:04 AM CDT) Analysis Performed At Patho logist Time Signature Potassium, S 3.4 (L) 3.6 - 5.2 06/07/2017 [facility] mmol/L 10:13 AM [facility] Sodium, S 142 135 - 145 06/07/2017 [facility] mmol/L 10:13 AM [facility] Chloride, S 97 (L) 98 - 107 06/07/2017 [facility] mmol/L 10:13 AM [facility] Bicarbonate, S 29 22 - 29 06/07/2017 [facility] mmol/L 10:13 AM [facility] Anion Gap 16 (H) 7 - 15 06/07/2017 [facility] 10:13 AM [facility] BUN (Blood Urea 26 (H) 6 - 21 06/07/2017 [facility] Nitrogen), S mg/dL 10:13 AM [facility] Creatinine 1.14 (H) 0.59 - 06/07/2017 [facility] 1.04 mg/dL 10:13 AM [facility] eGFR-Non 45 (L) >=60 06/07/2017 [facility] Black/ mL/min/BSA 10:13 AM [facility] Comment: ----ADDITIONAL INFORMATION---- Estimated GFR calculated using the 2009 CKD_EPI creatinine equation. eGFR-Black/ 52 (L) >=60 mL/min/BSA 06/07/2017 10:1 3 [facility] Comment: ----ADDITIONAL INFORMATION---- Estimated GFR calculated using the 2009 CKD_EPI creatinine equation. Calcium, Total, S 9.7 8.9 - 10.1 mg/dL 06/07/2017 1 0:13 AM [facility] Glucose, S 108 70 - 140 mg/dL 06/07/2017 10:13 AM [facility] Specimen Anatomical Collection Method Collection Time Receive d Time (Source) Location / / Volume Laterality Blood (Blood, 06/07/2017 9:04 AM 06/08/19 18 9:08 Venous) CDT AM T Aleisha Gonzales M.D. LAB BLOOD ADD-ON Performing Organization Address City/State/ZIP Code Phon e Number [facility]- [id number] [address] [place] [facility] documented in this encounter Visit Diagnoses Diagnosis Dementia (HCC) - Primary Hypertensive Heart Disease Without Heart Failure Gout Anxiety Regurgitation Aortic documented in this encounter Care Teams Food Manager Relationship Specialty Start Date End Date Aleisha Hermosillo M.D. PCP - General 08/18/[address] [place] [phone] documented as of this encounter
--- OUTSIDE RECORDS SUMMARY | 2022-01-04 09:37 | XMS_ITS | Encounter Summary ---
:1935 Author Organization [facility] Address [address] [place] [address] Care Team Providers Name Role Phone Aleisha Hermosillo M.D. Primary Care Provider [phone] Reason for Visit Reason Comments Other medication and BP Appointment Request (Routine) - Closed Specialty Diagnoses / Procedures Referred By Contact Refer red To Contact Family Medicine Referral ID Status Reason Start Date Expiration Date Visits Requ ested Visits Authorized [id number] Closed 05/09/2017 11/05/2017 1 1 Encounter Details Date Type Department Care Team Description 05/09/2017 Nurse Only Department of [facility] Aleisha Aivtia M.D. [address] [place] [phone] Other (medication and Medicine, [place] Maru Dixon R.N. BP) Clinic, in [address] [phone] Social History Tobacco Use Types Packs/Day Years Used Date Smoking Tobacco: Never Smokeless Tobacco: Never Alcohol Use Standard Drinks/Week Comments No 0 (1 standard drink = 0.6 oz pure alcoho l) Sex Assigned at Date Recorded Not on file documented as of this encounter Last Filed Vital Signs Vital Sign Reading Time Taken Comments Blood Pressure 148/66 05/09/2017 11:00 AM [facility] Pulse 64 05/09/2017 10:52 AM [facility] Temperature - - Respiratory Rate - - Oxygen Saturation - - Inhaled Oxygen Concentration - - Weight - - Height - - Body Mass Index - - documented in this encounter Progress Notes Maru Dixon R.N. - 05/09/2017 11:00 AM CST Dear Carol: I am going to decrease Mrs. Duenas's metoprolol from 50 mg twice a day to 25 mg twice a day. She could use the metoprolol that she has right now, and cut them in half from 50 mg to 25 mg twice a day. We can have her come in for a blood pressure check, and see how she is doing with that in a few weeks. Thank you. Sincerely yours, Whit Singh M.D. Janeth was telephoned and updated on new metoprolol dosage per above email of Dr. Singh. Reviewed meds with patient on the phone. Janeth expressed some confusion about new dosage. Janeth came in this amwith her medications for a nurse visit. Reviewed dosage of metoprolol with her. New instructions for25 mg twice daily was attached to bottle. Stated that she is able to cut current 50 mg tablets in half. Phone call made to [facility]. Janeth will stop in this am to brass pickler new dosage of metoprolol. Asked pharmacist to consult patient on new dosage. Nurse visit made for - for BP check. H COOK documented in this encounter Plan of Treatment Not on filedocumented as of this encounter Visit Diagnoses Not on filedocumented in this encounter Care Teams Manager Operating Relationship Specialty Start Date End Date Aleisha Hermosillo M.D. PCP - General 08/18/[address] [address] documented as of this encounter
--- OUTSIDE RECORDS SUMMARY | 2022-01-04 09:37 | XMS_ITS | Encounter Summary ---
:1935 Author Organization [facility] Address [address] [place] [address] Care Team Providers Name Role Phone Aleisha Hermosillo M.D. Primary Care Provider [phone] Reason for Visit Reason Comments Med Refill Encounter Details Date Type Department Care Team Description 09/22/2017 Refill Department of [facility] Stephany Hermoisllo Med Refill Medicine, [facility], in [place] [phone] [place], [place] [address] [phone] Social History Tobacco Use Types Packs/Day Years Used Date Smoking Tobacco: Never Smokeless Tobacco: Never Alcohol Use Standard Drinks/Week Comments No 0 (1 standard drink = 0.6 oz pure alcoho l) Sex Assigned at Date Recorded Not on file documented as of this encounter Miscellaneous Notes Telephone Encounter - Wyatt Wilkinson - 09/22/2017 2:32 PM CDT Please verify dosage. Request is for 50 mg twice daily, medication list states 25 mg twice daily. documented in this encounter Plan of Treatment Not on filedocumented as of this encounter Visit Diagnoses Not on filedocumented in this encounter Care Teams Fruit Canner Relationship Specialty Start Date End Date Aleisha Hermosillo M.D. PCP - General 08/18/[address] [place] [phone] documented as of this encounter
--- OUTSIDE RECORDS SUMMARY | 2022-01-04 09:37 | XMS_ITS | Encounter Summary ---
:1935 Author Organization [facility] Address [address] [place] [address] Care Team Providers Name Role Phone Aleisha Hermosillo M.D. Primary Care Provider [phone] Reason for Visit Reason Comments Follow-up Here for yearly follow-up. N o chest pain, SOB or edema. Would like to talk with Dr. Singh about echo and labs Outpatient (Routine) - Closed Specialty Diagnoses / Procedures Referred By Contact Refer red To Contact Diagnoses Hypertension NOS Whit Singh M.D. [address] [place] [address] Referral ID Status Reason Start Date Expiration Date Visits Requ ested Visits Authorized [id number] Closed 12/16/2016 06/14/2017 1 1 Encounter Details Date Type Department Care Team Description 05/04/2017 Office Visit Department of Whit Singh Acquired Aorti c Valve Disorder (Primary Dx); Cardiovascular Diseases Juwan Baron Hypertension NOS in [place], [address] [place], [place] [id number] [place] [address] [address] [address] [place], [place] [phone] [address] (Work) [phone] Social History Tobacco Use Types Packs/Day Years Used Date Smoking Tobacco: Never Smokeless Tobacco: Never Alcohol Use Standard Drinks/Week Comments No 0 (1 standard drink = 0.6 oz pure alcoho l) Sex Assigned at Date Recorded Not on file documented as of this encounter Last Filed Vital Signs Vital Sign Reading Time Taken Comments Blood Pressure 144/62 05/04/2017 12:30 PM RN ELIGIBILITY Pulse 64 05/04/2017 12:30 apical and regu lar PM RN ELIGIBILITY Temperature - - Respiratory Rate - - Oxygen Saturation 99% 05/04/2017 12:30 PM RN ELIGIBILITY Inhaled Oxygen - - Concentration Weight 58.9 kg (129 lb 13.6 05/04/2017 12:30 oz) PM RN ELIGIBILITY Height 162 cm (5' 3.78) 05/04/2017 12:30 PM RN ELIGIBILITY Body Mass Index 22.44 05/04/2017 12:30 PM RN ELIGIBILITY documented in this encounter Consult Notes Pinky Singh M.D. - 05/04/2017 12:00 AM CST SUBJECTIVE REASON FOR CONSULT Mrs. Duenas is being seen in followup for aortic insufficiency. HISTORY OF PRESENT ILLNESS Mrs. Duenas is an 82-year-old female. She has had at least moderate insufficiency on echocardiography. She remains asymptomatic. In general, she said she feels alright. She denies shortness of breath.She has had no chest discomfort. No swelling. She sleeps well. She has had some problems with cogniti ve issues. She does clean the house, and she states she has no problems at all with that. Is a nonsmoker. No heart disease in the family. She has had no diabetes. She has had hyperlipidemia and a history of hypertension. CURRENT MEDICATIONS Chlorthalidone 25 mg a day, sertraline, allopurinol 100 mg a day, metoprolol tartrate 50 mg 2 times a day, furosemide 20 mg a day, losartan 100 mg a day and potassium ER 10 mEq a day. OBJECTIVE PHYSICAL EXAMINATION General: She appears healthy. Vital Signs: Her blood pressure on my examination was 108/38 although, earlier, was 104/62. Lungs: Clear. Cardiac: Jugular venous pressure appeared normal. Carotids were brisk with a rapid upstroke and seemed to have a somewhat slow falloff. There were bilateral carotid bruits or referred murmur. No parasternal lift. PMI was sustained. S1, S2 with a 2/6 short systolic ejection murmur at right and left sternal border and heard at the apex and a 2/6 long diastolic murmur of aortic insufficiency. Abdomen: Soft, nontender. Extremities: Normal pedal pulses and no edema. ASSESSMENT / PLAN #1 Overall, Mrs. Duenas appears to be getting along really quite well Her blood pressure, at least on my examination, was quite normal. Her last lipid panel in July of last year showed an LDL cholesterol of 106 mg/dL. Overall, she appears to be doing well. Will review herechocardiogram when it is done. Will see where she is at with that. It may be that we will want to decrease her metoprolol and just follow along with that. It does have the potential of prolonging her diastolic periods with more aortic insufficiency. I do not think there is much else. Will review thatechocardiogram. Would otherwise continue her current medicines. If all is stable, will have her seenagain in 1-1/2 years with an echocardiogram at that time. Job ID: [id number]/imx documented in this encounter Plan of Treatment Not on filedocumented as of this encounter Results (TTE) 2D ECHO DOPPLER COLOR (12/10/2018 11:08 AM CDT) [facility] Method Time Signature Ejection Fraction 63 MC [...] evel Documents below. See PDF For Result Narrative 12/10/2018 4:17 PM CDT For the complete report, see the Order-L [...] original. For the complete report, see the [email or web address]-L evel Documents below. Final Impressions 1. Trileaflet [...] Visit Diagnoses Diagnosis Acquired Aortic Valve Disorder - Primary Hypertension NOS Acquired Aortic Valve Disorder documented in this encounter Care Teams Construction Site Manager Relationship Specialty Start Date End Date Aleisha Hermosillo M.D. PCP - General 08/18/[id number] [address] documented as of this encounter
--- OUTSIDE RECORDS SUMMARY | 2022-01-04 09:37 | XMS_ITS | Encounter Summary ---
:1935 Author Organization [facility] Address [address] [place] [address] Care Team Providers Name Role Phone Aleisha Hermosillo M.D. Primary Care Provider [phone] Reason for Referral Outpatient (Routine) - Closed Specialty Diagnoses / Procedures Referred By Contact Refer red To Contact Radiology Diagnoses Hypertension Essential Primary Whit Singh M.D. [facility] [place] [facility] Procedures Echo Transthoracic (TTE) [address] [place] [address] Referral ID Status Reason Start Date Expiration Date Visits Requ ested Visits Authorized [id number] Closed 12/24/2016 06/22/2017 1 1 H ENGINEER Reason for Visit Outpatient (Routine) - Closed Specialty Diagnoses / Procedures Referred By Contact Refer red To Contact Radiology Diagnoses Hypertension Essential Primary Whit Singh M.D. [facility] [place] [facility] Procedures Echo Transthoracic (TTE) [address] [place], [place] [address] Referral ID Status Reason Start Date Expiration Date Visits Requ ested Visits Authorized [id number] Closed 12/24/2016 06/22/2017 1 1 Encounter Details Date Type Department Care Team Description 05/04/2017 Hospital Encounter Department of Whit Singh Radiology in Ammon Baron M.D. Essential [place], [place] [address] [facility] [address] [place] [phone] Social History Tobacco Use Types Packs/Day Years Used Date Smoking Tobacco: Never Smokeless Tobacco: Never Alcohol Use Standard Drinks/Week Comments No 0 (1 standard drink = 0.6 oz pure alcoho l) Sex Assigned at Date Recorded Not on file documented as of this encounter Medications at Time of Discharge Medication Sig Dispensed Refills Start Date End Date allopurinol Take 1 tablet by 0 11/09/2016 018 (for_ZYLOPRIM) 100 mg mouth daily. tablet aspirin [address] tablet Take 1 tablet by 0 201401/21/2019 mouth daily. biotin 10,000 mcg Take by mouth 0 08/25/201405/05 tablet,disintegrating daily. CALCIUM CARB/VIT Take by mouth 0 11/09/201001/21 D3/MINERALS daily. (CALCIUM-VITAMIN D ORAL) chlorthalidone Take 1 tablet (25 90 tablet 3 04/04/201706/2017 (for_HYGROTEN) 25 mg mg total) by mouth tablet daily. colchicine (for_COLCRYS) Take 2 tablets by 10 tablet 3 03/0609/04/2017 0.6 mg tablet mouth at first sign of gout flare, followed by 1 tablet one hour later (max of 3 tablets per attack) do not repeat for 3 days donepezil (ARICEPT) 10 mg Take 1 tablet by 0 100 06/201606/07/2017 tablet mouth at bedtime. donepezil (for_ARICEPT) 5 TAKE ONE TABLET BY 90 tablet 3 06/07/2017 mg tablet MOUTH AT BEDTIME FOR MEMORY furosemide (LASIX) 20 mg Take 1 tablet (20 90 tablet 3 01/0402/07/2018 tablet mg total) by mouth daily. losartan (for_COZAAR) 100 Take 1 tablet (100 90 tablet 3 02/26/2018 mg tablet mg total) by mouth daily. For blood pressure. memantine (NAMENDA XR) 7 Take 1 capsule by 0 02/0406/07/2017 mg 24 hr capsule mouth daily. metoprolol tartrate Take 1 tablet by 0 10/21/2016 05/07/2017 (for_LOPRESSOR) 50 mg mouth 2 (two) times tablet a day. tfxyo-9n-rfz-epa-fish oil Take 1 capsule by 0 08/201005/30/2018 1,400 mg/5 mL liquid mouth daily. potassium chloride Take 1 tablet (10 180 tablet 3 02/15/2017 01/06/2018 (for_KLOR-CON M) 10 mEq mEq total) by mouth ER tablet 2 (two) times a day. predniSONE daily. 0 11/04/2016 05/30/2018 (for_DELTASONE) 20 mg tablet sertraline (ZOLOFT) 50 mg Take 1 tablet (50 90 tablet 3 11/201604/06/2018 tablet mg total) by mouth daily. documented as of this encounter Plan of Treatment Not on filedocumented as of this encounter Procedures Procedure Name Priority Date/Time Associated Diagnosis Comme nts (TTE) 2D ECHO Routine 05/04/2017 2:33 PM Hypertension Results for this DOPPLER COLOR WATCH ENGINEER Essential Primary procedure are in the results section. documented in this encounter Results (TTE) 2D ECHO DOPPLER COLOR (05/04/2017 2:33 PM WATCH ENGINEER) [facility] gist Method Time Signature Ejection Fraction 62 MC CV EIMS Mid-Ascending Aorta 34 MC CV EIMS LV Mass Index 142 MC CV EIMS LV End-Diastolic 60 MC CV EIMS Diameter LV End-Systolic 39 MC CV EIMS Diameter LV End-Diastolic 112 MC CV EIMS Volume LV End-Systolic 38 MC CV EIMS Volume MV E Velocity 0.6 MC CV EIMS MV A Velocity 1.0 MC CV EIMS MV E/A 0.60 MC CV EIMS MV e' Velocity 0.05 MC CV EIMS Medial MV e' Velocity 0.07 MC CV EIMS Lateral MV E/e' Medial 12.0 MC CV EIMS MV E/e' Lateral 8.6 MC CV EIMS Left ventricular 67 MC CV EIMS stroke volume index Cardiac Output 5.83 MC CV EIMS Cardiac Index 3.60 MC CV EIMS LV Interventricular 9 MC CV EIMS Septal Wall Thickness LV Posterior Wall 10 MC CV EIMS Thickness LV Relative Wall 33 MC CV EIMS Thickness Tricuspid Annular S? 0.14 MC CV EIMS TR Vmax 2.00 MC CV EIMS RA Pressure 5 MC CV EIMS RV Systolic Pressure 21 MC CV EIM S AV mean gradient 14 MC CV EIMS Aortic valve area 1.80 MC CV EIMS Aortic Valve Area 1.11 MC CV EIMS Index Aortic Valve 0.43 MC CV EIMS Dimensionless Index AV regurgitant 57 MC CV EIMS volume LA Volume Index 30 MC CV EIMS Anatomical Region Laterality Modality Echocardiography Specimen (Source) Anatomical Collection Method Collection Time Re ceived Time Location / / Volume Laterality 05/04/2017 1:47 PM WATCH ENGINEER Narrative 05/05/2017 4:30 PM WATCH ENGINEER See PDF For Result Procedure Note Nazario Crowell M.D. - 05/05/2017Form atting of this note might be different from the original. See PDF For Result Whit Singh M.D. CV ECHO PROCEDURES documented in this encounter Visit Diagnoses Diagnosis Hypertension Essential Primary documented in this encounter Care Teams Scorer Single Relationship Specialty Start Date End Date Aleisha Hermosillo M.D. PCP - General 08/18/[address] [place] [phone] documented as of this encounter
--- OUTSIDE RECORDS SUMMARY | 2022-01-04 09:37 | XMS_ITS | Encounter Summary ---
:1935 Author Organization [facility] Address [address] [place] [address] Care Team Providers Name Role Phone Aleisha Hermosillo M.D. Primary Care Provider [phone] Reason for Visit Reason Comments Med Refill Encounter Details Date Type Department Care Team Description 09/23/2017 Refill Department of [facility] Stephany Hermosillo Med Refill Medicine, [place] [facility] [place] [facility], in [place] [phone] [place], [place] [address] [phone] Social History Tobacco Use Types Packs/Day Years Used Date Smoking Tobacco: Never Smokeless Tobacco: Never Alcohol Use Standard Drinks/Week Comments No 0 (1 standard drink = 0.6 oz pure alcoho l) Sex Assigned at Date Recorded Not on file documented as of this encounter Miscellaneous Notes Telephone Encounter - Wyatt Wilkinson - 09/25/2017 7:58 AM CDT Rx sent on 09-04-17 for #10 with 3 refills documented in this encounter Plan of Treatment Not on filedocumented as of this encounter Visit Diagnoses Not on filedocumented in this encounter Care Teams Watershed Program Manager Relationship Specialty Start Date End Date Aleisha Hermosillo M.D. PCP - General 08/18/[address] [place] [phone] documented as of this encounter
--- OUTSIDE RECORDS SUMMARY | 2022-01-04 09:37 | XMS_ITS | Encounter Summary ---
:1935 Author Organization [facility] Address [address] [place] [address] Care Team Providers Name Role Phone Aleisha Hermosillo M.D. Primary Care Provider [phone] Reason for Visit Reason Comments Med Refill Encounter Details Date Type Department Care Team Description 07/18/2017 Refill Department of [facility] Stephany Hermosillo Med Refill Medicine, [place] [facility], in [place] [phone] [place], [place] [address] [phone] Social History Tobacco Use Types Packs/Day Years Used Date Smoking Tobacco: Never Smokeless Tobacco: Never Alcohol Use Standard Drinks/Week Comments No 0 (1 standard drink = 0.6 oz pure alcoho l) Sex Assigned at Date Recorded Not on file documented as of this encounter Miscellaneous Notes Telephone Encounter - Wyatt Wilkinson - 07/18/2017 9:15 AM CDT Rx was sent on 05-09-17 for #90 with 3 refills documented in this encounter Plan of Treatment Not on filedocumented as of this encounter Visit Diagnoses Not on filedocumented in this encounter Care Teams Director Phone Relationship Specialty Start Date End Date Aleisha Hermosillo M.D. PCP - General 08/18/[address] [place] [phone] documented as of this encounter
--- OUTSIDE RECORDS SUMMARY | 2022-01-04 09:37 | XMS_ITS | Encounter Summary ---
:1935 Author Organization [facility] Address [address] [place] [address] Care Team Providers Name Role Phone Aleisha Hermosillo M.D. Primary Care Provider [phone] Reason for Visit Reason Onset Date Comments Med Refill 01/20/2017 Furosemide Encounter Details Date Type Department Care Team Description 01/20/2017 Refill Department of [facility] Yusra Jaquez M ed Refill (Furosemide) Medicine, [facility], in [address] [address] [phone] Social History Tobacco Use Types Packs/Day Years Used Date Smoking Tobacco: Never Sex Assigned at Date Recorded Not on file documented as of this encounter Plan of Treatment Not on filedocumented as of this encounter Visit Diagnoses Not on filedocumented in this encounter Care Teams Warehouse Associate Relationship Specialty Start Date End Date Aleisha Hermosillo M.D. PCP - General 08/18/[address] [place] [phone] documented as of this encounter
--- OUTSIDE RECORDS SUMMARY | 2022-01-04 09:37 | XMS_ITS | Encounter Summary ---
:1935 Author Organization [facility] Address [address] [place] [address] Care Team Providers Name Role Phone Aleisha Hermosillo M.D. Primary Care Provider [phone] Reason for Visit Reason Comments Med Refill Encounter Details Date Type Department Care Team Description 02/01/2017 Refill Department of Family Medicine, Sharita Kaplan APRN, Med Refill [facility], in [place] C .N.PKai, D.N.[address] [address] [place], [place] [address] [phone] Social History Tobacco Use Types Packs/Day Years Used Date Smoking Tobacco: Never Sex Assigned at Date Recorded Not on file documented as of this encounter Plan of Treatment Not on filedocumented as of this encounter Visit Diagnoses Not on filedocumented in this encounter Care Teams Machine Presser Relationship Specialty Start Date End Date Aleisha Hermosillo M.D. PCP - General 08/18/[address] [place] [phone] documented as of this encounter
--- OUTSIDE RECORDS SUMMARY | 2022-01-04 09:37 | XMS_ITS | Encounter Summary ---
:1935 Author Organization [facility] Address [address] [place] [address] Care Team Providers Name Role Phone Aleisha Hermosillo M.D. Primary Care Provider [phone] Reason for Visit Reason Comments Communication cardiology testing Encounter Details Date Type Department Care Team Description 04/18/2017 Clinical Department of Nita Dixon Cardiovascular Maru Quick, (cardiology Diseases in [place] R.NKai testing) [address] [address] Social History Tobacco Use Types Packs/Day Years Used Date Smoking Tobacco: Never Sex Assigned at Date Recorded Not on file documented as of this encounter Miscellaneous Notes Telephone Encounter - Maru Dixon R.N. - 04/18/2017 9:23 AM SHUTTLER CAR Phone call made to patient. Patient is scheduled for a cardiology follow-up appt on 04-20. Ordered echocardiogram and lab work was not scheduled before the visit. Patient would like to keep appt on with Dr. Sinhg and ask him if the testing is needed. TLER CAR documented in this encounter Plan of Treatment Not on filedocumented as of this encounter Visit Diagnoses Not on filedocumented in this encounter Care Teams Fuel House Attendant Relationship Specialty Start Date End Date Aleisha Hermosillo M.D. PCP - General 08/18/16 [facility] [address] [phone] documented as of this encounter
--- OUTSIDE RECORDS SUMMARY | 2022-01-04 09:37 | XMS_ITS | Encounter Summary ---
:1935 Author Organization [facility] Address [address] [place] [address] Care Team Providers Name Role Phone Aleisha Hermosillo M.D. Primary Care Provider [phone] Reason for Visit Reason Comments Communication Encounter Details Date Type Department Care Team Description 05/09/2017 Clinical Communication Department of [facility] Cardiovascular Diseases Maru Quick R.N. in [address] [phone] Social History Tobacco Use Types Packs/Day Years Used Date Smoking Tobacco: Never Smokeless Tobacco: Never Alcohol Use Standard Drinks/Week Comments No 0 (1 standard drink = 0.6 oz pure alcoho l) Sex Assigned at Date Recorded Not on file documented as of this encounter Miscellaneous Notes Telephone Encounter - Maru Dixon R.N. - 05/09/2017 3:05 PM GLAZIER APPRENTICE Her nurse visit is at 0900 but I am sure that she would come at any time. Thanks IER APPRENTICE Telephone Encounter - Aleisha Hermosillo M.D. - 05/09/2017 1:45 PM GLAZIER APPRENTICE Carol- Thanks for your help. I would also like to see patient at some point and could fit her in at 11:30 on 05/22. What time is her nurse visit that day? Aleisha Parmar IER APPRENTICE Telephone Encounter - Maru Dixon R.N. - 05/09/2017 11:17 AM GLAZIER APPRENTICE Hi Dr. Singh, Janeth came in this am and I reviewed her new metoprolol dosage with her. BP was 152/68 with pulse of 64. At resting 10 minutes, BP was 148/66. She will return on 05-22 for another BP check. Thanks - Carol Dear Carol: I am going to decrease [...] Thank you. Sincerely yours, Whit Singh M.D. ? Janeth was telephoned and updated on new [...] Janeth will stop in this am to bulk picker new dosage of metoprolol. Asked pharmacist to consult patient on new dosage. Nurse visit made for 05-22 for BP check. IER APPRENTICE documented in this encounter Plan of Treatment Not on filedocumented as of this encounter Visit Diagnoses Not on filedocumented in this encounter Care Teams Hosiery Knitter Relationship Specialty Start Date End Date Aleisha Hermosillo M.D. PCP - General 08/18/[address] [phone] documented as of this encounter
--- OUTSIDE RECORDS SUMMARY | 2022-01-04 09:37 | XMS_ITS | Encounter Summary ---
:1935 Author Organization [facility] Address [address] [place] [address] Care Team Providers Name Role Phone Aleisha Hermosillo M.D. Primary Care Provider [phone] Reason for Visit Reason Comments Med Refill Encounter Details Date Type Department Care Team Description 04/21/2017 Refill Department of [facility] Stephany Hermosillo Med Refill Medicine, [place] [facility], in [address] [address] [place], [place] [address] [phone] Social History Tobacco Use Types Packs/Day Years Used Date Smoking Tobacco: Never Sex Assigned at Date Recorded Not on file documented as of this encounter Miscellaneous Notes Telephone Encounter - Aleisha Hermosillo M.D. - 04/25/2017 7:08 AM RULING MACHINE OPERATOR Patient is due for visits with myself and cardiology and needs labs and an echocardiogram. Can you please call and have him schedule? Aleisha Parmar NG MACHINE OPERATOR documented in this encounter Plan of Treatment Not on filedocumented as of this encounter Visit Diagnoses Not on filedocumented in this encounter Care Teams Peoplesoft Programmer Relationship Specialty Start Date End Date Aleisha Hermosillo M.D. PCP - General 08/18/[address] [place] [phone] documented as of this encounter
--- OUTSIDE RECORDS SUMMARY | 2022-01-04 09:37 | XMS_ITS | Encounter Summary ---
:[address] [facility] Address [address] [place] [address] Care Team Providers Name Role Phone Aleisha Hermosillo M.D. Primary Care Provider [phone] Reason for Visit Reason Comments Med Refill Encounter Details Date Type Department Care Team Description 03/07/2017 Refill Department of [facility] Stephany Hermosillo Med Refill Medicine, [place] [facility], in [address] [address] [place], [place] [address] [phone] Social History Tobacco Use Types Packs/Day Years Used Date Smoking Tobacco: Never Sex Assigned at Date Recorded Not on file documented as of this encounter Plan of Treatment Not on filedocumented as of this encounter Visit Diagnoses Not on filedocumented in this encounter Care Teams Line Erector Apprentice Relationship Specialty Start Date End Date Aleisha Hermosillo M.D. PCP - General 08/18/[address] [place] [phone] documented as of this encounter
--- OUTSIDE RECORDS SUMMARY | 2022-01-04 09:37 | XMS_ITS | Encounter Summary ---
:1935 Author Organization [facility] Address [address] [place] [address] Care Team Providers Name Role Phone Aleisha Hermosillo M.D. Primary Care Provider [phone] Reason for Visit Reason Onset Date Comments Med Refill 01/11/2017 Encounter Details Date Type Department Care Team Description 01/11/2017 Refill Department of [facility] Mark Jackson R.N. Med Refill Medicine, [address], in [facility] [phone] [place] [address] [place], [place] [address] Social History Tobacco Use Types Packs/Day Years Used Date Smoking Tobacco: Never Sex Assigned at Date Recorded Not on file documented as of this encounter Miscellaneous Notes Telephone Encounter - Aleisha Hermosillo M.D. - 2017 1:11 PM OFFICE SUPPORT ASSOCIATE Scripts filled. CE SUPPORT ASSOCIATE Telephone Encounter - Clara Jackson R.N. - 01/11/2017 1:44 PM CST LV 02/24/16 (non acute) Labs last 11/09/16 BP 166/45 Proposed visit and short supply of medication to get patient to appointment. CE SUPPORT ASSOCIATE documented in this encounter Plan of Treatment Not on filedocumented as of this encounter Visit Diagnoses Not on filedocumented in this encounter Care Teams Public Address System Operator Relationship Specialty Start Date End Date Aleisha Hermosillo M.D. PCP - General 08/18/[address] [place] [phone] documented as of this encounter
--- OUTSIDE RECORDS SUMMARY | 2022-01-04 09:37 | XMS_ITS | Encounter Summary ---
:1935 Author Organization [facility] Address [address] [place] [address] Care Team Providers Name Role Phone Aleisha Hermosillo M.D. Primary Care Provider [phone] Reason for Visit Reason Comments Med Refill Encounter Details Date Type Department Care Team Description 02/10/2017 Refill Department of [facility] Med Refill Medicine, [place] [facility], in [address] [address] [place], [place] [address] [phone] Social History Tobacco Use Types Packs/Day Years Used Date Smoking Tobacco: Never Sex Assigned at Date Recorded Not on file documented as of this encounter Miscellaneous Notes Telephone Encounter - Elida Bai L.PKaiN. - 02/10/2017 1:59 PM CENTRAL LAB TECHNICIAN Received refill request from Family [facility]. Last visit 02/24/16 labs completed 03/31/16. Please review and advise on pended medications. RAL LAB TECHNICIAN documented in this encounter Plan of Treatment Not on filedocumented as of this encounter Visit Diagnoses Not on filedocumented in this encounter Care Teams Marketing Reps Sports [employer] Entertainment Relationship Specialty Start Date End Date Aleisha Hermosillo M.D. PCP - General 08/18/[address] [place] [phone] documented as of this encounter
--- OUTSIDE RECORDS SUMMARY | 2022-01-04 09:37 | XMS_ITS | Encounter Summary ---
:1935 Author Organization [facility] Address [address] [place] [address] Care Team Providers Name Role Phone Aleisha Hermosillo M.D. Primary Care Provider [phone] Reason for Visit Reason Comments Med Refill Encounter Details Date Type Department Care Team Description 04/05/2017 Refill Department of [facility] Stephany Hermosillo Med Refill Medicine, [place] [facility], in [address] [address] [place], [place] [address] [phone] Social History Tobacco Use Types Packs/Day Years Used Date Smoking Tobacco: Never Sex Assigned at Date Recorded Not on file documented as of this encounter Miscellaneous Notes Telephone Encounter - Francheska aHwkins - 04/05/2017 3:59 PM CST Duplicate Rx request PARTS CLERK documented in this encounter Plan of Treatment Not on filedocumented as of this encounter Visit Diagnoses Not on filedocumented in this encounter Care Teams Artificial Breeding Distributor Relationship Specialty Start Date End Date Aleisha Hermosillo M.D. PCP - General 08/18/[address] [place] [phone] documented as of this encounter
--- OUTSIDE RECORDS SUMMARY | 2022-01-04 09:37 | XMS_ITS | Encounter Summary ---
:1935 Author Organization [facility] Address [address] [place] [address] Care Team Providers Name Role Phone Aleisha Hermosillo M.D. Primary Care Provider [phone] Reason for Visit Reason Comments Med Refill Encounter Details Date Type Department Care Team Description 05/22/2017 Refill Department of [facility] Stephany Hermosillo Med Refill Medicine, [place] [facility], in [place] [phone] [place], [place] [phone] Social History Tobacco Use Types Packs/Day Years Used Date Smoking Tobacco: Never Smokeless Tobacco: Never Alcohol Use Standard Drinks/Week Comments No 0 (1 standard drink = 0.6 oz pure alcoho l) Sex Assigned at Date Recorded Not on file documented as of this encounter Miscellaneous Notes Telephone Encounter - Francheska Hawkins - 05/23/2017 8:19 AM CDT Duplicate Rx Request documented in this encounter Plan of Treatment Not on filedocumented as of this encounter Visit Diagnoses Not on filedocumented in this encounter Care Teams Charcoal Unloader Relationship Specialty Start Date End Date Aleisha Hermosillo M.D. PCP - General 08/18/[address] [phone] documented as of this encounter
--- OUTSIDE RECORDS SUMMARY | 2022-01-04 09:37 | XMS_ITS | Encounter Summary ---
:1935 Author Organization [facility] Address [address] [place] [address] Care Team Providers Name Role Phone Aleisha Hermosillo M.D. Primary Care Provider [phone] Reason for Visit Reason Comments Med Refill Encounter Details Date Type Department Care Team Description 05/06/2017 Refill Department of [facility] Stephany Hermosillo Med Refill Medicine, [place] [facility], in [address] [address] [place], [place] [address] [phone] Social History Tobacco Use Types Packs/Day Years [...] on filedocumented in this encounter Care Teams Boot And Saddle Repair Person Relationship Specialty Start Date End Date Aleisha Hermosillo M.D. PCP - General 08/18/[address] [place] [phone] documented as of this encounter
--- OUTSIDE RECORDS SUMMARY | 2022-01-04 09:37 | XMS_ITS | Encounter Summary ---
:1935 Author Organization [facility] Address [address] [place] [address] Care Team Providers Name Role Phone Aleisha Hermosillo M.D. Primary Care Provider [phone] Reason for Visit Appointment Request (Routine) - Closed Specialty Diagnoses / Procedures Referred By Contact Refer red To Contact Family Medicine Referral ID Status Reason Start Date Expiration Date Visits Requ ested Visits Authorized [id number] Closed 05/09/2017 11/05/2017 1 Encounter Details Date Type Department Care Team Description 05/22/2017 Nurse Only Department of [facility] Aleisha hess M.D. [address] [place] [phone] Medicine, [place] [facility], in [address] [phone] Social History Tobacco Use Types Packs/Day Years Used Date Smoking Tobacco: Never Smokeless Tobacco: Never Alcohol Use Standard Drinks/Week Comments No 0 (1 standard drink = 0.6 oz pure alcoho l) Sex Assigned at Date Recorded Not on file documented as of this encounter Last Filed Vital Signs Vital Sign Reading Time Taken Comments Blood Pressure 120/70 05/22/2017 9:19 AM CDT Pulse 60 05/22/2017 9:19 AM CDT Temperature - - Respiratory Rate 20 05/22/2017 9:19 AM CDT Oxygen Saturation - - Inhaled Oxygen Concentration - - Weight - - Height - - Body Mass Index - - documented in this encounter Plan of Treatment Not on filedocumented as of this encounter Visit Diagnoses Not on filedocumented in this encounter Care Teams Clinical Research Manager Relationship Specialty Start Date End Date Aleisha Hermosillo M.D. PCP - General 08/18/[address] [place] [phone] documented as of this encounter
--- OUTSIDE RECORDS SUMMARY | 2022-01-04 09:37 | XMS_ITS | Encounter Summary ---
:1935 Author Organization [facility] Address [address] [place] [address] Care Team Providers Name Role Phone Aleisha Hermosillo M.D. Primary Care Provider [phone] Reason for Referral Outpatient (Routine) - Closed Specialty Diagnoses / Procedures Referred By Contact Refer red To Contact Diagnoses Hypertension NOS Whit Singh M.D. [address] [place] [address] Referral ID Status Reason Start Date Expiration Date Visits Requ ested Visits Authorized [id number] Closed 12/16/2016 06/14/2017 1 1 ATIONAL TECHNOLOGIST Encounter Details Date Type Department Care Team Description 12/16/2016 Orders Only Department of Cardiovascular Whit Singh Hypertension NOS Medicine in Tod Harden M .D. [place] [address] [facility] [address] [place] [address] [phone] Social History Tobacco Use Types Packs/Day Years Used Date Smoking Tobacco: Never Sex Assigned at Date Recorded Not on file documented as of this encounter Plan of Treatment Scheduled Referrals Name Type Priority Associated Diagnoses Order S chedule Cardiovascular Disease Outpatient Routine Hypertension NOS E xpected: office visit (clinic) Referral 2017 (Approximate), Expires: 04/08/2022 documented as of this encounter Results AST (Aspartate Aminotransferase) (02/04/2019 3:37 PM EDUCATIONAL TECHNOLOGIST) Patholo gist Method Time Signature Aspartate 26 8 - 43 02/04/2019 CNFL Aminotransferase U/L 4:21 PM EDUCATIONAL TECHNOLOGIST (AST), S Specimen Anatomical Collection Method Collection Time Receive d Time (Source) Location / / Volume Laterality Blood 02/04/2019 3:37 PM 9 3:39 EDUCATIONAL TECHNOLOGIST PM EDUCATIONAL TECHNOLOGIST Whit Singh M.D. LAB BLOOD ADD-ON Performing Organization Address City/State/ZIP Code Phon e Number [address] [id number] [place] [address] System in [address] Alkaline Phosphatase (02/04/2019 3:37 PM EDUCATIONAL TECHNOLOGIST) P athologist Signature Alkaline 100 35 - 104 02/04/2019 CNFL Phosphatase, S U/L 4:21 PM EDUCATIONAL TECHNOLOGIST Specimen Anatomical Collection Method Collection Time Receive d Time (Source) Location / / Volume Laterality Blood 02/04/2019 3:37 PM 9 3:39 EDUCATIONAL TECHNOLOGIST PM EDUCATIONAL TECHNOLOGIST Whit Singh M.D. LAB BLOOD ADD-ON Performing Organization Address City/[facility] Code Phon e Number [address] [address] [place] [address] System in [address] documented in this encounter Visit Diagnoses Diagnosis Hypertension NOS documented in this encounter Care Teams Occupational Rehabilitation Aide Relationship Specialty Start Date End Date Aleisha Hermosillo M.D. PCP - General 08/18/[address] [place] [phone] documented as of this encounter
--- OUTSIDE RECORDS SUMMARY | 2022-01-04 09:37 | XMS_ITS | Encounter Summary ---
:1935 Author Organization [facility] Address [address] [place] [address] Care Team Providers Name Role Phone Aleisha Hermosillo M.D. Primary Care Provider [phone] Encounter Details Date Type Department Care Team Description 06/14/2017 Orders Only Department of [facility] Stephany Hermosillo [facility], [place] [facility], in [address] [address] [place], [place] [phone] (W ork) [address] [phone] Social History Tobacco Use Types Packs/Day Years [...] on filedocumented in this encounter Care Teams Wharf Laborer Relationship Specialty Start Date End Date Aleisha Hermosillo M.D. PCP - General 08/18/[address] [place] [phone] documented as of this encounter
--- OUTSIDE RECORDS SUMMARY | 2022-01-04 09:37 | XMS_ITS | Encounter Summary ---
:1935 Author Organization [facility] Address [address] [place] [address] Care Team Providers Name Role Phone Aleisha Hermosillo M.D. Primary Care Provider [phone] Encounter Details Date Type Department Care Team Description 05/07/2017 Orders Only Department of Cardiovascular Whit Singh, Diseases in Keith Sanchez M.D. [place] [address] [address] [phone] (Wo rk) Social History Tobacco Use Types [...] filedocumented in this encounter Care Teams Manager Loan Relationship Specialty Start Date End Date Aleisha Hermosillo M.D. PCP - General 08/18/[address] [place] [phone] documented as of this encounter
--- OUTSIDE RECORDS SUMMARY | 2022-01-04 09:37 | XMS_ITS | Encounter Summary ---
:1935 Author Organization [facility] Address [address] [place] [address] Care Team Providers Name Role Phone Aleisha Hermosillo M.D. Primary Care Provider [phone] Reason for Visit Reason Comments Med Refill Encounter Details Date Type Department Care Team Description 09/29/2017 Refill Department of [facility] Stephany Hermosillo Med Refill Medicine, [place] [facility], in [address] [address] [place], [place] [address] [phone] Social History Tobacco Use Types Packs/Day Years [...] on filedocumented in this encounter Care Teams Home Appliances Mechanic Relationship Specialty Start Date End Date Aleisha Hermosillo M.D. PCP - General 08/18/[address] [place] [phone] documented as of this encounter
--- OUTSIDE RECORDS SUMMARY | 2022-01-04 09:37 | XMS_ITS | Encounter Summary ---
:1935 Author Organization [facility] Address [address] [place] [address] Care Team Providers Name Role Phone Aleisha Hermosillo M.D. Primary Care Provider [phone] Reason for Visit Reason Comments Med Refill Encounter Details Date Type Department Care Team Description 09/04/2017 Refill Department of [facility] Stephany Hermosillo Med Refill Medicine, [place] [facility], in [address] [address] [place], [place] [address] [phone] Social History Tobacco Use Types Packs/Day Years [...] on filedocumented in this encounter Care Teams Bleach Mixer Relationship Specialty Start Date End Date Aleisha Hermosillo M.D. PCP - General 08/18/[address] [place] [phone] documented as of this encounter
--- OUTSIDE RECORDS SUMMARY | 2022-01-04 09:37 | XMS_ITS | Encounter Summary ---
:1935 Author Organization [facility] Address [address] [place] [address] Care Team Providers Name Role Phone Aleisha Hermosillo M.D. Primary Care Provider [phone] Reason for Visit Reason Comments Med Refill Encounter Details Date Type Department Care Team Description 05/13/2017 Refill Department of [facility] Stephany Hermosillo Med Refill Medicine, [place] [facility], in [place] [phone] [place], [place] [address] [phone] Social History Tobacco Use Types Packs/Day Years Used Date Smoking Tobacco: Never Smokeless Tobacco: Never Alcohol Use Standard Drinks/Week Comments No 0 (1 standard drink = 0.6 oz pure alcoho l) Sex Assigned at Date Recorded Not on file documented as of this encounter Miscellaneous Notes Telephone Encounter - Francheska Hawkins - 05/15/2017 8:58 AM CDT Duplicate Rx Request Patient should still have refills remaining documented in this encounter Plan of Treatment Not on filedocumented as of this encounter Visit Diagnoses Not on filedocumented in this encounter Care Teams Information Technology Administrator Relationship Specialty Start Date End Date Aleisha Hermosillo M.D. PCP - General 08/18/[address] [phone] documented as of this encounter
--- OUTSIDE RECORDS SUMMARY | 2022-01-04 09:37 | XMS_ITS | Encounter Summary ---
:1935 Author Organization [facility] Address [address] [place] [address] Care Team Providers Name Role Phone Aleisha Hermosillo M.D. Primary Care Provider [phone] Reason for Visit Reason Comments Med Refill Encounter Details Date Type Department Care Team Description 04/04/2017 Refill Department of [facility] Stephany Hermosillo Med Refill Medicine, [place] [facility], in [address] [address] [place], [place] [address] [phone] Social History Tobacco Use Types Packs/Day Years Used Date Smoking Tobacco: Never Sex Assigned at Date Recorded Not on file documented as of this encounter Plan of Treatment Not on filedocumented as of this encounter Visit Diagnoses Not on filedocumented in this encounter Care Teams Picket [employer] Relationship Specialty Start Date End Date Aleisha Hermosillo M.D. PCP - General 08/18/[address] [place] [phone] documented as of this encounter
--- OUTSIDE RECORDS SUMMARY | 2022-01-04 09:37 | XMS_ITS | Encounter Summary ---
:1935 Author Organization [facility] Address [address] [place] [address] Care Team Providers Name Role Phone Aleisha Hermosillo M.D. Primary Care Provider Reason for Visit Reason Comments Med Refill Encounter Details Date Type Department Care Team Description 04/06/2017 Refill Department of [facility] Stephany Hermosillo Med Refill Medicine, [place] [facility], in [address] [address] [place], [place] [address] [phone] Social History Tobacco Use Types Packs/Day Years Used Date Smoking Tobacco: Never Sex Assigned at Date Recorded Not on file documented as of this encounter Miscellaneous Notes Telephone Encounter - Wyatt Wilkinson - 04/06/2017 2:53 PM CST Rx was filled on 04-04-17 ERCIAL LOAN ANALYST documented in this encounter Plan of Treatment Not on filedocumented as of this encounter Visit Diagnoses Not on filedocumented in this encounter Care Teams Joint Finisher Relationship Specialty Start Date End Date Aleisha Hermosillo M.D. PCP - General 08/18/[address] [place] [phone] documented as of this encounter
--- OUTSIDE RECORDS SUMMARY | 2022-01-04 09:37 | XMS_ITS | Encounter Summary ---
:1935 Author Organization [facility] Address [address] [place] [address] Care Team Providers Name Role Phone Aleisha Hermosillo M.D. Primary Care Provider [phone] Reason for Visit Reason Comments Med Refill Encounter Details Date Type Department Care Team Description 05/21/2017 Refill Department of [facility] Stephany Hermosillo Med Refill Medicine, [place] [facility], in [place] [phone] [place], [place] [address] [phone] Social History Tobacco Use Types Packs/Day Years Used Date Smoking Tobacco: Never Smokeless Tobacco: Never Alcohol Use Standard Drinks/Week Comments No 0 (1 standard drink = 0.6 oz pure alcoho l) Sex Assigned at Date Recorded Not on file documented as of this encounter Miscellaneous Notes Telephone Encounter - Wyatt Wilkinson - 05/22/2017 9:35 AM CDT Rx was sent on 01-15-17 for #90 with 3 refills documented in this encounter Plan of Treatment Not on filedocumented as of this encounter Visit Diagnoses Not on filedocumented in this encounter Care Teams Drawing In Machine Tender Relationship Specialty Start Date End Date Aleisha Hermosillo M.D. PCP - General 08/18/[address] [place] [phone] documented as of this encounter
--- OUTSIDE RECORDS SUMMARY | 2022-01-04 09:37 | XMS_ITS | Encounter Summary ---
:1935 Author Organization [facility] Address [address] [place] [address] Care Team Providers Name Role Phone Aleisha Hermosillo M.D. Primary Care Provider [phone] Reason for Visit Reason Comments Med Refill Potassium Encounter Details Date Type Department Care Team Description 02/06/2017 Refill Department of [facility] Refill (Potassium) Medicine, [facility], in [address] [address] [place] [address] Social History Tobacco Use Types Packs/Day Years Used Date Smoking Tobacco: Never Sex Assigned at Date Recorded Not on file documented as of this encounter Plan of Treatment Not on filedocumented as of this encounter Visit Diagnoses Not on filedocumented in this encounter Care Teams Secy Relationship Specialty Start Date End Date Aleisha Hermosillo M.D. PCP - General 08/18/[address] [place] [phone] documented as of this encounter
--- OUTSIDE RECORDS SUMMARY | 2022-01-04 09:37 | XMS_ITS | Encounter Summary ---
:1935 Author Organization [facility] Address [address] [place] [address] Care Team Providers Name Role Phone Aleisha Hermosillo M.D. Primary Care Provider [phone] Encounter Details Date Type Department Care Team Description 09/24/2017 Orders Only Department of [facility] Stephany Hermosillo [facility], [place] [facility], in [address] [address] [place], [place] [phone] (W ork) [address] [phone] Social History Tobacco Use Types Packs/Day Years [...] on filedocumented in this encounter Care Teams Pattern Storage Clerk Relationship Specialty Start Date End Date Aleisha Hermosillo M.D. PCP - General 08/18/[address] [place] [phone] documented as of this encounter
--- OUTSIDE RECORDS SUMMARY | 2022-01-04 09:37 | XMS_ITS | Encounter Summary ---
:1935 Author Organization [facility] Address [address] [place] [address] Care Team Providers Name Role Phone Aleisha Hermosillo M.D. Primary Care Provider [phone] Encounter Details Date Type Department Care Team Description 05/04/2017 Nurse Only Department of [facility] Whit Singh M.D. [address] [place] [address] Medicine, [place] Patricia Rubio, L.P.NKai [address] [place] [phone] Clinic, in [address] [phone] Social History Tobacco Use [...] Primary documented in this encounter Care Teams Tourist Guide Relationship Specialty Start Date End Date Aleisha Hermosillo M.D. PCP - General 08/18/[address] [place] [phone] documented as of this encounter
--- OUTSIDE RECORDS SUMMARY | 2022-01-04 09:37 | XMS_ITS | Encounter Summary ---
:1935 Author Organization [facility] Address [address] [place] [address] Care Team Providers Name Role Phone Aleisha Hermosillo M.D. Primary Care Provider [phone] Reason for Visit Reason Comments Med Refill Encounter Details Date Type Department Care Team Description 09/28/2017 Refill Department of [facility] Stephany Hermosillo Med Refill Medicine, [place] [facility], in [place] [phone] [place], [place] [address] [phone] Social History Tobacco Use Types Packs/Day Years Used Date Smoking Tobacco: Never Smokeless Tobacco: Never Alcohol Use Standard Drinks/Week Comments No 0 (1 standard drink = 0.6 oz pure alcoho l) Sex Assigned at Date Recorded Not on file documented as of this encounter Miscellaneous Notes Telephone Encounter - Wyatt Wilkinson - 09/28/2017 9:52 AM CDT Duplicate Rx Request Telephone Encounter - Wyatt Wilkinson - 09/28/2017 7:46 AM CDT Please verify dosage of lopressor. Request is for 50 mg twice daily, medication list states 25 mg twice daily documented in this encounter Plan of Treatment Not on filedocumented as of this encounter Visit Diagnoses Not on filedocumented in this encounter Care Teams Ct Scan Technologist Relationship Specialty Start Date End Date Aleisha Hermosillo M.D. PCP - General 08/18/[address] [place] [phone] documented as of this encounter
--- OUTSIDE RECORDS SUMMARY | 2022-01-04 09:38 | XMS_ITS | Encounter Summary ---
:1935 Author Organization [facility] Address [address] [place] [address] Care Team Providers Name Role Phone Unavailable Primary Care Provider Unavailable Encounter Details Date Type Department Care Team Description 10/28/2015 Hospital Encounter HX [facility] Aleisha May M.D. [id number] [id number] (Wo rk) Social History Tobacco Use Types Packs/Day Years Used Date Smoking Tobacco: Never Assessed Sex Assigned at Date Recorded Not on file documented as of this encounter Medications at Time of Discharge Medication Sig Dispensed Refills Start Date End Date aspirin [address] tablet Take 1 tablet by 0 201401/21/2019 mouth daily. biotin 10,000 mcg Take by mouth daily. 0 08/26/19 15 05/30/2018 tablet,disintegrating CALCIUM CARB/VIT Take by mouth daily. 0 1 01/21/2019 D3/MINERALS (CALCIUM-VITAMIN D ORAL) [id number] Take 1 capsule by 0 011 05/30/2018 oil 1,400 mg/5 mL liquid mouth daily. documented as of this encounter Progress Notes Aleisha Hermosillo M.D. - 10/28/2015 7:31 AM CDT Clinic Full Note CHIEF COMPLAINT/REASON FOR VISIT Rickey and Son Beto here to discuss health care with Dr. Carroll HISTORY OF PRESENT ILLNESS Janeth's and son present today to discuss concerns they have about Janeth's memory. We do have a PHI document for Rickey but this in August. I stated I could listen to their concerns but could not talk specifically about Janeth however I could speak generally. They state that she will repeatedly ask the same question and will not remember conversations they had 15 minutes prior. Generallyphyllis does not get upset. She is still driving and has had no difficulties. MEDICATIONS Aricept 10 mg oral tablet, aspirin 81 mg oral tablet, 81 mg, 1 tab(s), PO, Daily atenolol 50 mg oral tablet, Biotin Forte oral tablet, 10,000 mcg, PO, Daily Calcium 600+D, 1 tab, PO, Daily Fish Oil oral capsule, 1 cap(s), 1400 mg, PO, Daily hydrochlorothiazide 12.5 mg oral tablet, K-Dur 10 oral tablet, extended release, Lasix 20 mg oral tablet, losartan 100 mg oral tablet, Zoloft 50 mg oral tablet, List Documented Prior to Med History Completed ALLERGIES lisinopril PAST MEDICAL HISTORY Chronic Anxiety NOS Dementia (Major Neurocognitive Disorder) NOS Gout NOS Hypertension Pure Hypercholesterolemia Historical Tick Bite PROCEDURES/SURGICAL HISTORY Echocardiogram (06/01/2015), Colonoscopy (08/28/2013), Echocardiogram (06/06/2013), Colonoscopy (11/08/2006), HC COLONOSCOPY W SNARE REMOVAL TUMOR/POLYP/LESION - 11/08/06 (11/08/2006), Hysterectomy (1975), C TOTAL ABDOM HYSTERECTOMY - 1970's - Hysterectomy, Total Abdominal (bleeding) - benign (). SOCIAL HISTORY Date Time: 10/28/2015 06:55 Tobacco: Smoking Status: Never smoker Exposure: Care provider denies smoking in home, Other: never Alcohol: Use: No Results Found Recreational Drugs: Use: None Type: No Results Found FAMILY HISTORY Mother ( at 91 year(s)):Positive: Diabetes mellitus; Hypertension Father ( at 76 year(s)):Positive: Alzheimer's disease; Hypertension Brother: Negative: Son:Positive: Hypertension IMPRESSION/REPORT/PLAN 1. Complaint Memory In general we discussed the process for diagnosis and management of memory issues. I encouraged them to bring Janeth back for a checkup which they agree with. Electronically Signed By: ALEISHA GOLDEN MD On: 10/28/2015 07:32 AM Source: [facility] [employer] Document Id: [id number] documented in this encounter Miscellaneous Notes Miscellaneous - Aleisha Hermosillo M.D. - 10/28/2015 7:34 AM CDT needs appt Document Contains Addenda Addendum by NICHOLAS CORRIGAN on October 28, 2015 09:39:38 CDT From: NICHOLAS CORRIGAN ([place] [facility] Body Fitter) To: [place] [facility] Nurse Ghanshyam; Sent: 10/28/2015 09:39:38 CDT Subject: FW: needs appt Left message to schedule appt. From: ALEISHA GOLDEN MD To: [place] [facility] Body Fitter; Sent: 10/28/2015 07:34:11 CDT Subject: needs appt Can you please schedule this patient for an extended visit? There is an order in the chart. Aleisha Parmar Source: [facility] [employer] Document Id: [id number] Miscellaneous - Aleisha Hermosillo M.D. - 10/28/2015 7:33 AM CDT Ambulatory Patient Summary [address] [place] [id number] Visit Information Name: JANETH RANGEL [facility] Number: [id number] Current Date: 10/28/2015 07:33:09 Physicians Attending Provider: ALEISHA GLODEN MD Primary Care Provider: ALEISHA GOLDEN MD JANETH RANGEL has been given the following list of follow-up instructions, medication list, and patient education materials: Follow-up Instructions Your Medications Here is a list of your medications. It is important to take your medications as directed. Use a pillbox or chart to help remind you to take your medications. Please let your doctor or nurse know if you have problems taking your medications. Medication/Strength How to Take Indications/Special Instructions/Comments/Notes for Patient Medication Changes/Routing aspirin (aspirin 81 mg oral tablet) 1 Tablet(s), Oral, once a day atenolol (atenolol 50 mg oral tablet) 1 Tablet(s), Oral, once a day high blood pressure calcium-vitamin D (Calcium 600+D) 1 tab, Oral, once a day donepezil (Aricept 10 mg oral tablet) 1 Tablet(s), Oral, once a day (at bedtime) memory- patient will call when needed furosemide (Lasix 20 mg oral tablet) 1 Tablet(s), Oral, once a day hydrochlorothiazide (hydrochlorothiazide 12.5 mg oral tablet) 1 Tablet(s), Oral, once a day high blood pressure losartan (losartan 100 mg oral tablet) 1 Tablet(s), Oral, once a day high blood pressure multivitamin (Biotin Forte oral tablet) 10,000 mcg, Oral, once a day omega-3 polyunsaturated fatty acids (Fish Oil oral capsule) 1 cap, Oral, once a day 1400 mg potassium chloride (K-Dur 10 oral tablet, extended release) 1 Tablet(s), Oral, once a day sertraline (Zoloft 50 mg oral tablet) 1 Tablet(s), Oral, once a day anxiety Stop Taking the Following Medications: Medication list as of 10-28-15 07:33 Attention: If you have any medications at home that are not on this list, DO NOT take them until youcontact your provider for clarification. Give a copy of your medication list to your primary care provider. Update your medication list any time medications or doses are changed and carry your medication list at all times in case of emergency. Electronically Signed By: ALEISHA GOLDEN MD Signed On:28-OCT-2015 07:33:05 Your Allergies & Intolerances Substance Reaction Symptoms Category Comments lisinopril Drug Tickle in throat x 3 weeks with no other reason Your Problem List Problem Status Onset Comments Hypertension Active 03/06/1990 Aortic insufficiency Active 10/20/2011 12/06/11 unknown date of dx; 12/06/11 stress test Gout NOS Active 11/26/2012 Pure Hypercholesterolemia Active 11/13/2001 06/01/13 Pure hypercholesterolemia Dementia (Major Neurocognitive Disorder) NOS Active Anxiety NOS Active Your Upcoming Appointments Date Time Location Provider No Appointments found Attention: Contact your local Clinic if further appointment detail needed. Consider Using Patient Online [facility] [employer] is a secure online and Mobile application that lets you: ?? View lab and test results ?? View portions of your medical record including clinical notes, immunizations and discharge summaries ?? Request an appointment or medication refill ?? Review your appointment schedule ?? Send secure messages to your care team Its easy to create an account if you dont have one. Go to [email or web address] and click on Create Your Account. Then, follow the directions to complete the online form. Youll be asked for your [facility] number which you can find at the top of this document. Your Goals/Additional instructions: Source: [facility] [employer] Document Id: [id number] Miscellaneous - Aleisha Hermosillo M.D. - 10/28/2015 7:33 AM CDT Ambulatory Discharge Medication List [address] [id number] Visit Information Name: JANETH RANGEL [facility] Number: [id number] Visit Date: 10/28/2015 07:33:08 Attending Provider: ALEISHA GOLDEN MD Primary Care Provider: ALEISHA GOLDEN MD JANETH RANGEL has been given the following list of medications: Your Medications It is important to take your medications as directed. Use a pill box or chart to help remind you to take your medications. Please let your doctor or nurse know if you have problems taking your medications. Medication/Strength How to Take Indications/Special Instructions/Comments/Notes for Patient Medication Changes/Routing aspirin (aspirin 81 mg oral tablet) 1 Tablet(s), Oral, once a day atenolol (atenolol 50 mg oral tablet) 1 Tablet(s), Oral, once a day high blood pressure calcium-vitamin D (Calcium 600+D) 1 tab, Oral, once a day donepezil (Aricept 10 mg oral tablet) 1 Tablet(s), Oral, once a day (at bedtime) memory- patient will call when needed furosemide (Lasix 20 mg oral tablet) 1 Tablet(s), Oral, once a day hydrochlorothiazide (hydrochlorothiazide 12.5 mg oral tablet) 1 Tablet(s), Oral, once a day high blood pressure losartan (losartan 100 mg oral tablet) 1 Tablet(s), Oral, once a day high blood pressure multivitamin (Biotin Forte oral tablet) 10,000 mcg, Oral, once a day omega-3 polyunsaturated fatty acids (Fish Oil oral capsule) 1 cap, Oral, once a day 1400 mg potassium chloride (K-Dur 10 oral tablet, extended release) 1 Tablet(s), Oral, once a day sertraline (Zoloft 50 mg oral tablet) 1 Tablet(s), Oral, once a day anxiety Stop Taking the Following Medications: Medication list as of 10-28-15 07:33 Attention: If you have any medications at home that are not on this list, DO NOT take them until youcontact your provider for clarification. Give a copy of your medication list to your primary care provider. Update your medication list any time medications or doses are changed and carry your medication list at all times in case of emergency. Electronically Signed By: ALEISHA GOLDEN MD Signed On:28-OCT-2015 07:33:05 Additional Information: Source: [facility] [employer] Document Id: [id number] Miscellaneous - Janeth Og LKaiP.N. 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 Intake/History Entered On: 10/28/2015 6:56 CDT Performed On: 10/28/2015 6:55 CDT by JANETH OG LPN Intake Chief Complaint : Rickey and Son Beto here to discuss health care with JANETH Linares LPN - 10/28/2015 6:55 CDT General Info Information Given By : Patient Languages : Pakistani Is Patient Female and 13-50 no hysterectomy : No JANETH OG LPN - 10/28/2015 6:55 CDT Subjective Pain Symptoms : No JANETH OG LPN - 10/28/2015 6:55 CDT Dependent Habits Exposure to Tobacco Smoke : Care provider denies smoking in home, Other: never Smoking Status : Never smoker Tobacco 2A : No Tobacco Use/Currently Using : No Tobacco Use/Last 30 Days : No Tobacco Use/Last 12 months : No JANETH OG LPN - 10/28/2015 6:55 CDT Caffeine Use Grid Caffeine Use : Current Type : Coffee Frequency : Daily Amount : 2 JANETH OG LPN - 10/28/2015 6:55 CDT Recreational Drug Use Grid Drug Use : None JANETH OG LPN - 10/28/2015 6:55 CDT Source: [facility] [employer] Document Id: [id number]!25 documented in this encounter Plan of Treatment Not on filedocumented as of this encounter Visit Diagnoses Not on filedocumented in this encounter
--- OUTSIDE RECORDS SUMMARY | 2022-01-04 09:38 | XMS_ITS | Encounter Summary ---
:1935 Author Organization [facility] Address [address] [place] [address] Care Team Providers Name Role Phone Unavailable Primary Care Provider Unavailable Encounter Details Date Type Department Care Team Description 01/18/2016 Hospital Encounter HX [facility] ED Aris Salcedo M.D. [address] [place], [place] [phone] (Wo rk) Social History Tobacco Use Types Packs/Day Years Used Date Smoking Tobacco: Never Assessed Sex Assigned at Date Recorded Not on file documented as of this encounter Last Filed Vital Signs Vital Sign Reading Time Taken Comments Blood Pressure 163/56 01/18/2016 10:20 AM VEHICLE CHECK IN CLERK Pulse 68 01/18/2016 10:20 AM VEHICLE CHECK IN CLERK Temperature - - Respiratory Rate 16 01/18/2016 10:20 AM VEHICLE CHECK IN CLERK Oxygen Saturation - - Inhaled Oxygen Concentration - - Weight - - Height - - Body Mass Index - - documented in this encounter Discharge Summaries Jessie Onofre R.N. - 01/18/2016 10:41 AM CST ED Depart Summary [facility] Emergency Department Clinical Discharge Summary PERSON INFORMATION Name JUAN J DUENAS Age 81 Years 1935 12:00 AM Sex Female Language Belarusian PCP MAGO GOLDEN MD Marital Status Visit Id Visit Reason Diarrhea; diahrrea Specialty Enc Type Emergency Med Service Emergency Medicine Referred by Track Group [facility] ED Discharge 01/18/2016 10:41 AM Tracking Id [id number] Checkout 01/18/2016 10:41 AM Checkin 01/18/2016 9:08 AM Acuity 4 -Less Urgent Dispo Type * Discharged to Home or Self Care Arrival 01/18/2016 9:08 AM Reg Status Complete LOS 000 01:33 Address: [address] [place] [phone] Comment: PROVIDER INFORMATION Provider Role Provider Contact Time JESSIE ONOFRE 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 Nurse 01/18/16 09:10 ISAMAR SALCEDO MD ED Provider 01/18/16 09:12 DIAGNOSIS Dementia (Major Neurocognitive Disorder) NOS; Gastroenteritis Presumed Infectious; Hypokalemia Comment: PATIENT EDUCATION INFORMATION Instructions: HYPOKALEMIA; FOOD POISONING vs Gastro-Ent (6yr - Adult) Follow up: With: Address: When: Re scheudle your missed appointment to recheck potassium Within As Needed With: Address: When: MAGO GOLDEN [address] [place] [phone] Business (1) Within As Needed Source: [facility] POWER[facility]ART Document Id: [id number] CLE CHECK IN CLERK Jessie Onofre RKaiN. - 01/18/2016 10:41 AM CST ED Discharge Instructions [address] [address] Name: JUAN J DUENAS Date of : 1935 12:00 AM Visit Date: 01/18/2016 9:08 AM [facility] Number: [id number] Address: [address] [place] [phone] Primary Care Provider: MAGO GOLDEN MD IMPORTANT: [facility] in [place] would like to thank you for allowing us to assist you with your healthcare needs. The following includes patient education materials and informationregarding your injury/illness. Diagnosis: Dementia (Major Neurocognitive Disorder) NOS; Gastroenteritis Presumed Infectious; Hypokalemia Follow-Up Instructions: With: Address: When: [place] cas[place] your missed appointment to recheck potassium Within As Needed With: Address: When: MAGO GOLDEN [address] [place] [phone] [email or web address] (1) Within As Needed Your Upcoming Appointments: Date Time Location Provider 01/25/2016 08:45 [facility] Family Med [facility] Nurse Patient Education Materials: Hypokalemia Hypokalemia means a low level of potassium in the blood. This most often occurs in patients who takediuretics (water pills). It can also occur due to severe vomiting or diarrhea. A mild case usually causes no symptoms. It is only found with blood testing. More severe potassium loss causes generalized weakness, muscle or abdominal cramping, heart palpitations (rapid or irregularheartbeats) and low blood pressure. Home Care: 1) Take any potassium supplements prescribed. 2) Eat foods rich in potassium. The highest amount is found in artichoke, baked potatoes, spinach, cantaloupe, honeydew melon, cod, halibut, salmon, and scallops. White, red, or zamudio beans are also very good sources. A modest amount is found in orange juice, bananas, carrots, and tomato juice. 3) Certain types of diuretics (water pills), such as Lasix (furosemide), require that you take potassium supplements for as long as you take the diuretic pills. If you are taking a diuretic, discuss the need for potassium supplements with your doctor. Follow Up with your doctor for a repeat blood test within the next week or as advised by our staff. Get Prompt Medical Attention if any of the following occur: -- Increased weakness -- Feeling dizzy -- Irregular heartbeat, extra beats or very fast heart rate -- Fainting spell ?? [phone] Marjorie Barhaona, [address] [place] [address], [place] [address]. All rights reserved. This information is not intended as a substitute for professional medical care. Always follow your healthcare professional's instructions. Food Poisoning Or Viral Gastroenteritis (6Yr-Adult) You have a stomach illness that is likely either food poisoning or viral gastroenteritis. Food poisoning occurs from 1 to 24 hours after eating contaminated food and lasts up to 1 to 2 days. Viral gastroenteritis is commonly known as the stomach flu. It may last up to a week. Symptoms of both illnesses may include vomiting, diarrhea, fever, and stomach cramping. Antibiotics are not an effective treatment for either problem, but simple home treatment can give relief. Home Care: ?? If symptoms are severe, rest at home for the next 24 hours. ?? You may use acetaminophen (Tylenol) or ibuprofen (Motrin, Advil) to control fever, unless anothermedication was prescribed. [NOTE: If you have chronic liver or kidney disease or ever had a stomach ulcer or GI bleeding, talk with your doctor before using these medications. Do not give aspirin to anyone under 18 years of age who is ill with a fever.] ?? Avoid tobacco and alcohol consumption. These may worsen your symptoms. ?? If medicines for diarrhea or vomiting were prescribed, take these only as directed. Never take these without a healthcare providers approval. During the first 12 to 24 hours follow the diet below: ?? BEVERAGES: Sport drinks like Gatorade, soft drinks without caffeine; atif royal, mineral water (plain or flavored), decaffeinated tea and coffee. ?? SOUPS: Clear broth, consomm? and bouillon ?? DESSERTS: Plain gelatin (Jell-O), popsicles and fruit juice bars. During the next 24 hours you may add the following to the above: ?? Hot cereal, plain toast, bread, rolls, crackers ?? Plain noodles, rice, mashed potatoes, chicken noodle or rice soup ?? Unsweetened canned fruit (avoid pineapple), bananas ?? Limit fat intake to less than 15 grams per day by avoiding margarine, butter, oils, mayonnaise, sauces, gravies, fried foods, peanut butter, meat, poultry, and fish. ?? Limit fiber; avoid raw or cooked vegetables, fresh fruits (except bananas) and bran cereals. ?? Limit caffeine and chocolate. No spices or seasonings except salt. Gradually resume a normal diet as you feel better and your symptoms lessen. Follow Up with your doctor as advised if you are not better in 2 days. If a stool (diarrhea) sample was taken,you may call in 2 days (or as directed) for the results. Get Prompt Medical Attention if any of the following occur: ?? Increasing abdominal pain or constant lower right abdominal pain ?? Continued vomiting (unable to keep liquids down) ?? Frequent diarrhea (more than 5 times a day) ?? Blood in vomit or stool (black or red color) ?? Signs of dehydration: increased thirst, dark urine, reduced or no urine output, dry mouth and tongue, tireness or weakness, dizziness when standing, rapid breathinng ?? New rash ?? Fever of 100.4?F (38?C) oral or higher, not better with fever medication ?? [phone] Marjorie GuzmanThe [facility], [address] [place] [address], [place] [address]. All rights reserved. This information is not intended as a substitute for professional medical care. Always follow your healthcare professional's instructions. Consider Using Patient Online Services Patient Online [...] if you dont have one. Go to [email or web address] and click on Create Your Account. Then, follow the directions to complete the online form. Youll be asked for your [facility] number which you can find at the top of this document. ED Tests and Procedures: Order Status Basic Metabolic Panel Completed Magnesium Level Completed Discharge Prescriptions & Home Medications: Medication/Strength Dose Route Frequency Indications/Special Instructions/Comments/Notes potassium chloride (K-Dur 10 oral tablet, extended release) 10 meq Oral three times a day increase for 3 days to 3 times daily, then back to twice daily potassium chloride (K-Dur 10 oral tablet, extended release) 10 meq Oral two times a day donepezil (Aricept 10 mg oral tablet) 10 mg Oral once a day (at bedtime) memory losartan (losartan 100 mg oral tablet) 100 mg Oral once a day high blood pressure atenolol (atenolol 50 mg oral tablet) 50 mg Oral once a day high blood pressure sertraline (Zoloft 50 mg oral tablet) 50 mg Oral once a day anxiety furosemide (Lasix 20 mg oral tablet) 20 mg Oral once a day hydrochlorothiazide (hydrochlorothiazide 12.5 mg oral tablet) 12.5 mg Oral once a day high blood pressure multivitamin (Biotin Forte oral tablet) 10,000 mcg Oral once a day aspirin (aspirin 81 mg oral tablet) 81 mg Oral once a day calcium-vitamin D (Calcium 600+D) 1 tab Oral once a day omega-3 polyunsaturated fatty acids (Fish Oil oral capsule) 1 cap(s) Oral once a day 1400 mg Comment: Attention: If you have any medications at home not on this list, DO NOT take them until you contact your provider for clarification. Give a copy of your medication list to your primary care provider. Update your medication list any time medications or doses are changed and carry your medication list at all times in case of emergency. IMPORTANT: We examined and treated you today on an emergency basis only. This was not a substitute for, or an effort to provide, complete medical care. In most cases, you must let your doctor check youagain. Tell your doctor about any new or lasting problems. We cannot recognize and treat all injuries or illnesses in one Emergency Department visit. If you had special tests, such as EKG's or X- rays, we will review them again within 24 hours. We will call you if there are any new suggestions. Please follow the instructions above carefully. If you are being transferred to another facility your followup plan of care will be determined by the receiving facility. If you are a patient that is being discharged from the Emergency Department after receiving narcotics or other medications that may impair your judgment you may be a risk to yourself or others if you operate a motor vehicle. We recommend that you arrange a ride home with a responsible green party. CLAIRE Calvillo CAROL LAVONNE , or responsible green party have received this information and my questions have been answered. I have discussed any challenges I see with this plan with the nurse or physician. Patient Signature or Responsible Alliance Party/Relationship Date Time Provider Signature Date Time IMPORTANT: We examined and treated you today on an emergency basis only. This was not a substitute for, or an effort to provide, complete medical care. In most cases, you must let your doctor check youagain. Tell your doctor about any new or lasting problems. We cannot recognize and treat all injuries or illnesses in one Emergency Department visit. If you had special tests, such as EKG's or X- rays, we will review them again within 24 hours. We will call you if there are any new suggestions. Please follow the instructions above carefully. If you are being transferred to another facility your followup plan of care will be determined by the receiving facility. If you are a patient that is being discharged from the Emergency Department after receiving narcotics or other medications that may impair your judgment you may be a risk to yourself or others if you operate a motor vehicle. We recommend that you arrange a ride home with a responsible green party. CLAIRE Calvillo CAROL LAVONNE , or responsible green party have received this information and my questions have been answered. I have discussed any challenges I see with this plan with the nurse or physician. Patient Signature or Responsible Alliance Party/Relationship Date Time Provider Signature Date Time Source: [facility] Document Id: [id number] CLE CHECK IN CLERK documented in this encounter Medications at Time of Discharge Medication Sig Dispensed Refills Start Date End Date aspirin [address] tablet Take 1 tablet by 0 201401/21/2019 mouth daily. biotin 10,000 mcg Take by mouth daily. 0 08/26/19 15 05/30/2018 tablet,disintegrating CALCIUM CARB/VIT Take by mouth daily. 0 1 01/21/2019 D3/MINERALS (CALCIUM-VITAMIN D ORAL) [id number] Take 1 capsule by 0 011 05/30/2018 oil 1,400 mg/5 mL liquid mouth daily. potassium chloride Take 1 tablet by 0 01/07/2016 02/06/2017 (for_DO [place]) 10 mEq mouth 2 (two) times a ER tablet day. documented as of this encounter ED Notes Jessie Onofre R.N. - 01/18/2016 10:40 AM CST ED Disposition Summary ED Disposition Summary Entered On: 01/18/2016 10:40 VEHICLE CHECK IN CLERK Performed On: 01/18/2016 10:40 VEHICLE CHECK IN CLERK by JESSIE ONOFRE RN ED Disposition Summary Present in Room During Exam/Procedure : Spouse Mode of Discharge : Ambulatory Transportation : Private vehicle Printed Discharge Instructions Given to Patient : Yes JESSIE ONOFRE RN - 01/18/2016 10:40 VEHICLE CHECK IN CLERK Source: [employer] Document Id: [id number] VEHICLE CHECK IN CLERK!6 CLE CHECK IN CLERK Jessie Onofre R.N. - 01/18/2016 10:40 AM CST ED Pain Assessment ED Pain Assessment Entered On: 01/18/2016 10:40 VEHICLE CHECK IN CLERK Performed On: 01/18/2016 10:40 VEHICLE CHECK IN CLERK by JESSIE ONOFRE RN Pain Assessment Pain Symptoms : No JESSIE ONOFRE RN - 01/18/2016 10:40 VEHICLE CHECK IN CLERK Source: [employer] Document Id: [id number] VEHICLE CHECK IN CLERK!3 CLE CHECK IN CLERK Isamar Salcedo M.D. - 01/18/2016 9:32 AM CST Diarrhea, mild hypokalemia Patient: JUAN J DUENAS Age: 81 years Sex: Female : 1935 Author: ISAMAR SALCEDO MD Attachments: None Associated Diagnosis: Gastroenteritis Presumed Infectious; Hypokalemia; Dementia (Major Neurocognitive Disorder) NOS Basic Information Additional information: Chief Complaint from Nursing Triage Note : Chief Complaint Description 01/18/2016 9:15 VEHICLE CHECK IN CLERK Chief Complaint Description Pt presents to ED with c/o not feeling well and having watery diarrhea. Symtoms started yesterday evening. . History of Present Illness Patient brought in by . Reviewed electronic records. Noted patient has dementia but still driving independently. now with an gives most of history. They a at the local [employer] late last week. On Monday she had some nausea vomiting that persisted off and on during the weekend but was never severe. She continued to try to eat normally. That is better now but she had to 3 episodes of loose stools overnight. No fever chills or abdominal pain. No previous recent episodes like this, no use of antibiotics. does not have symptoms. They are not aware of the anyone else he has had similar symptoms who also ate at the same gathering. She did not take any of her blood pressure medications this morning because they wanted to her a andcome to the emergency department. I have noted that her recently low potassiums. She was not aware of this. She is managing her own medications. She has not tried any medications or home remedies to treat nausea vomiting or diarrhea. Review of Systems Constitutional symptoms: Review of systems entirely unreliable due to dementia. Significant concernsof hypokalemia noted in history, and reviewed problem list of medications. This appeared to be only active problems.. Health Status Allergies: Allergic Reactions (Selected) Severity Not Documented Lisinopril- No reactions were documented.. Past Medical/ Family/ Social History Medical history: Active Hypertension (401.9): Onset in 1990 at 55 years. Resolved Tick Bite (919.4): Onset on 05/25/2011 at 76 years. Resolved.. Surgical history: Echocardiogram ([id number]) on 06/01/2015 at 80 Years. Colonoscopy ([id number]) on 08/28/2013 at 78 Years. Echocardiogram ([id number]) on 06/06/2013 at 78 Years. Colonoscopy ([id number]) on 11/08/2006 at 71 Years. Comments: 01/28/2011 08:40 - GINNA TEJADA MD, Dr in [place] One sessile polyp recommended repeat in 5 years [facility] COLONOSCOPY W SNARE REMOVAL TUMOR/POLYP/LESION - 11/08/06 on 11/08/2006 at 71 Years. Hysterectomy ([id number]) in 1975 at 41 Years. C TOTAL ABDOM HYSTERECTOMY - 1969's - Hysterectomy, Total Abdominal (bleeding) - benign on .. Family history: Diabetes mellitus Mother () Hypertension Mother () Father () Son Alzheimer's disease Father () . Physical Examination Vital Signs: Vital Signs 01/18/2016 9:15 VEHICLE CHECK IN CLERK Temperature Core 36.4 DegC LOW Peripheral Pulse Rate 73 /min Respiratory Rate 16 /min SpO2 97 % Systolic Blood Pressure 168 mmHg >HHI Diastolic Blood Pressure 57 mmHg Mean Arterial Pressure 94 mmHg BP Location Left upper , SpO2 01/18/2016 9:15 VEHICLE CHECK IN CLERK SpO2 97 % . General: Alert and no acute distress. Skin: Warm, dry and pink. Head: Normocephalic. Eye: Pupils are equal, round and reactive to light. Ears, nose, mouth and throat: Oral mucosa moist. Cardiovascular: Regular rate and rhythm and No murmur. Respiratory: Respirations are non-labored. Chest wall Gastrointestinal: Soft, Nontender, Non distended and Normal bowel sounds. Psychiatric: Cooperative and Turns her for answers likely poor memory and relying on him forany memory of events.. Medical Decision Making Differential Diagnosis:Gastroenteritis, colitis, viral syndrome, electrolyte imbalance. Rationale:Her vital signs are stable and exam is normal. Likely is trying to be too much and face ofhyperkalemia. I have concerns about electrolytes and the use of medications.. Documents reviewed:Prior records. OrdersLaunch Orders Laboratory: Magnesium Level (Order Processing): Stat, 01/18/2016 9:33 VEHICLE CHECK IN CLERK, Once Basic Metabolic Panel (Order Processing): Stat, 01/18/2016 9:33 VEHICLE CHECK IN CLERK, Once. Results review:Lab results : Lab View 01/18/2016 9:41 VEHICLE CHECK IN CLERK Sodium Lvl 132 mM/L LOW Potassium Lvl 3.3 mmol/L LOW Chloride 101 mmol/L CO2 22 mmol/L LOW AGAP 9 mmol/L LOW Glucose Lvl 101 mg/dL Creatinine 0.89 mg/dL EGFR (MDRD) >60 mL/min/1.73m2 EGFR (MDRD) >60 mL/min/1.73m2 BUN 17 mg/dL Calcium Lvl 8.9 mg/dL Magnesium 2.0 mg/dL . Reexamination/ Reevaluation Potassium slightly low but improved from previous. Electrolytes otherwise normal. No indication for IV hydration. Discuss with patient care of gastroenteritis. She has had no vomiting or diarrhea said she has been here so I think it is improving. Increase potassium to 3 times daily for a few days and back to twice daily. Liquid diet. For another day and then slowly advance diet. Emphasize thehusband that he probably needs to have a more help with her medications. Continue medications as prescribed otherwise. needs to assist her in making a follow-up appointment, it sounds like she is post to followup last week he had a potassium check but are not. Return to the ED if new symptoms.Abdominal pain persistent severe symptoms. Impression and Plan Diagnosis Gastroenteritis Presumed Infectious (Discharge, Emergency medicine, Medical) Hypokalemia (Discharge, Emergency medicine, Medical) Dementia (Major Neurocognitive Disorder) NOS (Discharge, Emergency medicine, Medical) Plan Condition: Unchanged. Prescriptions: Prescription [facility]: K-Dur 10 oral tablet, extended release (Prescribe): 10 meq, 1 tab(s), PO, 3xDay, for 4 day(s), increase for 3 days to 3 times daily, then back to twice daily, 12 tab(s), 0 Refill(s). Patient was given the following educational materials: FOOD POISONING vs Gastro- Ent (6yr - Adult), HYPOKALEMIA. Counseled: Patient, Family, Regarding diagnostic results, Regarding treatment plan, Regarding prescription, Patient indicated understanding of instructions. Electronically Signed By: ISAMAR SALCEDO MD On: 01/18/2016 11:26 AM Modified by and Electronically Signed by: ISAMAR SALCEDO MD On: 01/18/2016 10:30 AM Source: [facility] Document Id: [id number] CLE CHECK IN CLERK Jessie Onofre R.N. - 01/18/2016 9:19 AM CST ED Primary Assessment Document Has Been Updated ED Primary Assessment Entered On: 01/18/2016 9:20 VEHICLE CHECK IN CLERK Performed On: 01/18/2016 9:19 VEHICLE CHECK IN CLERK by JESSIE ONOFRE RN Reason For Visit (As Of: 01/18/2016 09:20:18 VEHICLE CHECK IN CLERK) Problems(Active) Anxiety NOS (ICD-10-CM :F41.9 ) Name of Problem: Anxiety NOS ; Recorder: MAGO GOLDEN MD; Confirmation: Confirmed ; Classification: Medical ; Code: F41.9 ; Contributor System: PowerChart ; Last Updated: 03/03/2015 13:06 VEHICLE CHECK IN CLERK ; 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 ; Life Cycle Status: Active ; Vocabulary: ICD-10-CM Aortic insufficiency (ICD-9-CM :424.1 ) Name of Problem: Aortic insufficiency ; Onset Date: 10/20/2011 ; Recorder: BATSHEVA NEWBY RN; Confirmation: Confirmed ; Classification: Nursing ; Code: 424.1; Contributor System: PowerChart ; Last Updated: 12/06/2011 10:38 CDT ; Life Cycle Date: 11/01/2011 ; Life Cycle Status: Active ; Responsible Provider: BATSHEVA NEWBY RN; Vocabulary: ICD-9-CM ; Comments: 12/06/2011 8:34 - RBUENS AGUILAR LPN unknown date of dx 12/06/2011 10:38 - HUBER CORRALES DNP, LABEL STAMPER stress test Dementia (Major Neurocognitive Disorder) NOS (ICD-10-CM :F03.90 ) Name of Problem: Dementia (Major Neurocognitive Disorder) NOS ; Recorder: MAGO OCONNELL MD; Confirmation: Confirmed ; Classification: Medical ; Code: F03.90 ; Contributor System: PowerChart ; Last Updated: 03/03/2015 13:06 VEHICLE CHECK IN CLERK ; 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 ; Life Cycle Status: Active ; Vocabulary: ICD-10-CM Gout NOS (ICD-9-CM :274.9 ) Name of Problem: Gout NOS ; Onset Date: 11/26/2012 ; Recorder: GINNA TEJADA MD; Confirmation: Confirmed ; Classification: Medical ; Code: 274.9 ; Last Updated: 11/26/2012 16:04 CDT ; Life Cycle Status: Active ; Responsible Provider: GINNA TEJADA MD; Vocabulary: ICD-9-CM Hypertension (ICD-9-CM :401.9 ) Name of Problem: Hypertension ; Onset Date: 1990 ; Recorder: MAY DAVIDSON LPN; Confirmation: Confirmed ; Classification: Medical ; Code: 401.9 ; Contributor System:PowerChart ; Last Updated: 10/18/2011 11:58 CDT ; Life Cycle Date: 11/09/2010 ; Life Cycle Status: Active ; Responsible Provider: MAY DAVIDSON LPN; Vocabulary: ICD-9-CM Pure Hypercholesterolemia (ICD-9-CM :272.0 ) Name of Problem: Pure Hypercholesterolemia ; Onset Date: 11/13/2001 ; Confirmation: Confirmed ; Classification: Medical ; Code: 272.0 ; Contributor System: [email or web address] ; Last Updated: 06/01/2013 18:11 CDT ; Life Cycle Status: Active ; Vocabulary: ICD-9-CM ; Comments: - Pure hypercholesterolemia Diagnoses(Active) Diarrhea Date: 01/18/2016 ; Diagnosis Type: Reason For Visit ; Confirmation: Complaint of ; ClinicalDx: Diarrhea ; Classification: Medical ; Clinical Service: Emergency medicine ; Code: PNED ; Probability: 0 ; Diagnosis Code: [id number] Triage Mode of Arrival ED : Private vehicle Track : Medical Languages : Belarusian Treatments Prior to Arrival : None Is Patient Female and 13-50 no hysterectomy : No JESSIE ONOFRE RN - 01/18/2016 9:19 VEHICLE CHECK IN CLERK Pain Assessment Pain Symptoms : No JESSIE ONOFRE RN - 01/18/2016 9:19 VEHICLE CHECK IN CLERK Respiratory Airway : Patent Respirations : Unlabored Respiratory Pattern : Regular JESSIE ONOFRE RN - 01/18/2016 9:19 VEHICLE CHECK IN CLERK Cardiovascular Heart Rhythm : Regular Skin Color : Normal for ethnicity Skin Description : Dry Skin Temperature : Warm JESSIE ONOFRE RN - 01/18/2016 9:19 VEHICLE CHECK IN CLERK Neurological Last Well Time Known : Not applicable Level of Consciousness : Alert Orientation : Oriented x 3 Characteristics of Speech : Appropriate for age JESSIE ONOFRE RN - 01/18/2016 9:19 VEHICLE CHECK IN CLERK ED Psychosocial Affect/Behavior : Calm, Cooperative Domestic Abuse Concerns : None Behavioral Health Screen/Safety Assmt : No JESSIE ONOFRE RN - 01/18/2016 9:19 VEHICLE CHECK IN CLERK Gastrointestinal Nutrition ED : Adequate GI Detailed Assessment : Yes JESSIE ONOFRE RN - 01/18/2016 9:19 VEHICLE CHECK IN CLERK GI Detailed GI Patient Stated Symptoms : Diarrhea, Nausea Bowel Movement Last Date : 01/18/2016 VEHICLE CHECK IN CLERK Stool Description : Liquid JESSIE ONOFRE RN - 01/18/2016 9:19 VEHICLE CHECK IN CLERK Musculoskeletal Fall Prevention Education Provided : JESSIE MENARD RN - 01/18/2016 9:19 VEHICLE CHECK IN CLERK Social Habits Exposure to Tobacco Smoke : Care provider denies smoking in home, Other: never Smoking Status : Never smoker Tobacco 2A : No Tobacco Use/Currently Using : No Tobacco Use/Last 30 Days : No Tobacco Use/Last 12 months : No JESSIE ONOFRE RN - 01/18/2016 9:19 VEHICLE CHECK IN CLERK Alcohol Use Grid Alcohol Use : No JESSIE ONOFRE RN - 01/18/2016 9:19 VEHICLE CHECK IN CLERK Recreational Drug Use Grid Drug Use : None JESSIE ONOFRE RN - 01/18/2016 9:19 VEHICLE CHECK IN CLERK Source: [facility] POWERCHART Document Id: [id number] VEHICLE CHECK IN CLERK!49 CLE CHECK IN CLERK Jessie Onofre R.N. - 01/18/2016 9:15 AM CST ED Triage Assessment Document Has Been Updated ED Triage Assessment Entered On: 01/18/2016 9:19 VEHICLE CHECK IN CLERK Performed On: 01/18/2016 9:15 VEHICLE CHECK IN CLERK by JESSIE ONOFRE RN Reason For Visit (As Of: 01/18/2016 09:25:49 VEHICLE CHECK IN CLERK) Problems(Active) Anxiety NOS (ICD-10-CM :F41.9 ) Name of Problem: Anxiety NOS ; Recorder: MAGO GOLDEN MD; Confirmation: Confirmed ; Classification: Medical ; Code: F41.9 ; Contributor System: [employer] ; Last Updated: 03/03/2015 13:06 VEHICLE CHECK IN CLERK ; 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 ; Life Cycle Status: Active ; Vocabulary: ICD-10-CM Aortic insufficiency (ICD-9-CM :424.1 ) Name of Problem: Aortic insufficiency ; Onset Date: 10/20/2011 ; Recorder: BATSHEVA NEWBY RN; Confirmation: Confirmed ; Classification: Nursing ; Code: 424.1; Contributor System: PowerChart ; Last Updated: 12/06/2011 10:38 CDT ; Life Cycle Date: 11/01/2011 ; Life Cycle Status: Active ; Responsible Provider: BATSHEVA NEWBY RN; Vocabulary: ICD-9-CM ; Comments: 12/06/2011 8:34 - 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 12/06/2011 10:38 - HUBER CORRALES DNP, LABEL STAMPER stress test Dementia (Major Neurocognitive Disorder) NOS (ICD-10-CM :F03.90 ) Name of Problem: Dementia (Major Neurocognitive Disorder) NOS ; Recorder: MAGO OCONNELL MD; Confirmation: Confirmed ; Classification: Medical ; Code: F03.90 ; Contributor System: [employer] ; Last Updated: 03/03/2015 13:06 VEHICLE CHECK IN CLERK ; 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 ; Life Cycle Status: Active ; Vocabulary: ICD-10-CM Gout NOS (ICD-9-CM :274.9 ) Name of Problem: Gout NOS ; Onset Date: 11/26/2012 ; Recorder: GINNA TEJADA MD; Confirmation: Confirmed ; Classification: Medical ; Code: 274.9 ; Last Updated: 11/26/2012 16:04 CDT ; Life Cycle Status: Active ; Responsible Provider: GINNA TEJADA MD; Vocabulary: ICD-9-CM Hypertension (ICD-9-CM :401.9 ) Name of Problem: Hypertension ; Onset Date: 1990 ; Recorder: MAY DAVIDSON LPN; Confirmation: Confirmed ; Classification: Medical ; Code: 401.9 ; Contributor System:PowerChart ; Last Updated: 10/18/2011 11:58 CDT ; Life Cycle Date: 11/09/2010 ; Life Cycle Status: Active ; Responsible Provider: MAY DAVIDSON LPN; Vocabulary: ICD-9-CM Pure Hypercholesterolemia (ICD-9-CM :272.0 ) Name of Problem: Pure Hypercholesterolemia ; Onset Date: 11/13/2001 ; Confirmation: Confirmed ; Classification: Medical ; Code: 272.0 ; Contributor System: [email or web address] ; Last Updated: 06/01/2013 18:11 CDT ; Life Cycle Status: Active ; Vocabulary: ICD-9-CM ; Comments: - Pure hypercholesterolemia Diagnoses(Active) Diarrhea Date: 01/18/2016 ; Diagnosis Type: Reason For Visit ; Confirmation: Complaint of ; ClinicalDx: Diarrhea ; Classification: Medical ; Clinical Service: Emergency medicine ; Code: PNED ; Probability: 0 ; Diagnosis Code: [id number] Triage Chief Complaint Description : Pt presents to ED with c/o not feeling well and having watery diarrhea. Symtoms started yesterday evening. Information Given By : Patient Present in Room During Exam/Procedure : Spouse Mode of Arrival ED : Private vehicle Track : Medical Languages : Bel[place]ian Vital Signs Assessed : Yes Treatments Prior to Arrival : None Is Patient Female and 13-50 no hysterectomy : No JESSIE ONOFRE RN - 01/18/2016 9:15 VEHICLE CHECK IN CLERK Vital Signs Temperature Core : 36.4 DegC(Converted to: 97.5 DegF) (LOW) Peripheral Pulse Rate : 73 /min Respiratory Rate : 16 /min Systolic Blood Pressure : 168 mmHg (>HHI) Diastolic Blood Pressure : 57 mmHg NIBP Mean : 94 mmHg BP Location : Left upper extremity SpO2 : 97 % Oxygen Therapy : Room air JESSIE ONOFRE RN - 01/18/2016 9:15 VEHICLE CHECK IN CLERK Pain Assessment Pain Symptoms : No JESSIE ONOFRE RN - 01/18/2016 9:15 VEHICLE CHECK IN CLERK ED Physician Notification Time ED Physician Notification Time : 01/18/2016 9:17 VEHICLE CHECK IN CLERK JESSIE ONOFRE RN - 01/18/2016 9:15 VEHICLE CHECK IN CLERK QUIN DCP GENERIC CODE Tracking Group : [facility] ED Tracking Acuity : 4 -Less Urgent JESSIE ONOFRE RN - 01/18/2016 9:15 VEHICLE CHECK IN CLERK Allergy (As Of: 01/18/2016 09:19:02 VEHICLE CHECK IN CLERK) Allergies (Active) lisinopril Estimated Onset Date: Unspecified ; Comments: Comment 1: Tickle in throat x 3 weeks with no other reason ; Created By: JAX DANIEL MD; Reaction Status: Active ; Category: Drug ; Substance: lisinopril ; Type: Allergy ; Updated By: JAX DANIEL MD; Reviewed Date: 01/18/2016 9:18 VEHICLE CHECK IN CLERK ID Screen Drug Resistant Organism : JESSIE Weber RN - 01/18/2016 9:15 VEHICLE CHECK IN CLERK Immunizations Influenza : This year JESSIE ONOFRE RN - 01/18/2016 9:25 VEHICLE CHECK IN CLERK Source: [facility] POWERCHART Document Id: [id number] VEHICLE CHECK IN CLERK!3 CLE CHECK IN CLERK documented in this encounter Miscellaneous Notes Miscellaneous - Conversion, Historical Provider Ser - 01/18/2016 10:41 AM VEHICLE CHECK IN CLERK Coding Summary-Paper Based CODING DATE: 01/25/2016 FINAL [place] [facility] STATUS: * Discharged to Home or Self Care PAYOR: Medicare ADMIT DX: R19.7 Diarrhea, unspecified REASON FOR VISIT DX: R19.7 Diarrhea, unspecified FINAL DX: PRINCIPAL: K52.9 Noninfective gastroenteritis and colitis, unspecified SECONDARY: F03.90 Unspecified dementia without behavioral disturbance E87.6 Hypokalemia I10 Essential (primary) hypertension E78.00 Pure hypercholesterolemia, unspecified Z88.8 Allergy status to other drugs, medicaments and biological substances status PROCEDURES DOCTOR NAME DATE NOTE: The code number assigned matches the documented diagnosis and / or procedure in the patient's chart. However, the narrative phrase printed from the coding software may appear abbreviated, or result in slightly different terminology. Coded By: LORELEI FRASER Date Saved: 01/25/2016 06:38 am [facility] Document Id: [id number] Miscellaneous - Jessie Onofre RKaiNKai - 01/18/2016 10:40 AM CST Valuables/Belongings Valuables/Belongings Entered On: 01/18/2016 10:40 VEHICLE CHECK IN CLERK Performed On: 01/18/2016 10:40 VEHICLE CHECK IN CLERK by JESSIE ONOFRE RN Valuables/Belongings Home Medication Disposition : None brought in with patient JESSIE ONOFRE RN - 01/18/2016 10:40 VEHICLE CHECK IN CLERK Source: [facility] IPexpert Document Id: [id number] VEHICLE CHECK IN CLERK!3 CLE CHECK IN CLERK Miscellaneous - Jessie Onofre R.N. - 01/18/2016 9:08 AM CST Facility Charge Ticket 2.0 11.0 DX Facility Charge Ticket 2.0 11.0 DX Entered On: 01/18/2016 10:40 VEHICLE CHECK IN CLERK Performed On: 01/18/2016 9:08 VEHICLE CHECK IN CLERK by JESSIE ONOFRE RN Facility Charge Ticket 2.0 11.0 DX ED Other Charges : Standard ED Encounter TVL Level Translated RTF : Diarrhea TVL:4 TVL Level for Facility Charge Ticket : Level 4 Arrival Mode Calc : 1 Mode of Arrival ED : Private vehicle [place] Mode of Arrival Interpreted : Standard [place] Process Management : None Order Management RTF : Laboratory Basic Metabolic Panel,01/18/16 09:33,ISAMAR SALCDEO MD Completed Magnesium Level,01/18/16 09:33,ISAMAR SALCEDO MD Completed [place] Order Management : Lab tests 30 Minutes Critical Care : No Nursing Notes RTF : Triage Forms ED Triage Assessment,01/18/16 09:15,JESSIE ONOFRE RN Nursing Notes ED Primary Assessment,01/18/16 09:19,JESSIE ONOFRE 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 Pain Assessment,01/18/16 10:40,JESSIE ONOFRE RN [facility] Nursing Assessment : Triage and 1-2 nursing assessments [facility] Disposition : Discharge [place] Total Points with Diagnosis Control : 8 [place] Visit Level : 76031 Level 4 Treatments Prior to Arrival : None JESSIE ONOFRE RN - 01/18/2016 10:40 VEHICLE CHECK IN CLERK Source: [facility] ScrewpulpCHART Document Id: [id number] VEHICLE CHECK IN CLERK!18 CLE CHECK IN CLERK documented in this encounter Plan of Treatment Not on filedocumented as of this encounter Procedures Procedure Name Priority Date/Time Associated Diagnosis Comme nts MAGNESIUM, S Routine 01/18/2016 9:41 AM Results f or this VEHICLE CHECK IN CLERK procedure are i n the results section. BASIC METABOLIC Routine 01/18/2016 9:41 AM Result s for this PANEL, S/P VEHICLE CHECK IN CLERK procedure are i n the results section. documented in this encounter Results Magnesium (01/18/2016 9:41 AM VEHICLE CHECK IN CLERK) P athologist Signature Magnesium, S 2.0 1.7 - 2.1 POWERCHART MGDL Specimen (Source) Anatomical Collection Method Collection Time Re ceived Time Location / / Volume Laterality Blood 01/18/2016 9:41 AM VEHICLE CHECK IN CLERK Isamar Salcedo M.D. LAB BLOOD ADD-ON Performing Organization Address City/State/ZIP Code Phon e Number POWERCHART (ABNORMAL) BMP (Basic Metabolic Panel) (01/18/2016 9:41 AM VEHICLE CHECK IN CLERK) P athologist Signature Sodium, S 132 (L) 135 - 145 POWERCHART MML Potassium, S 3.3 (L) 3.6 - 4.8 POWERCHART MMOLL Chloride, S 101 98 - 107 POWERCHART MMOLL CO2 Total 22 (L) 23 - 29 POWERCHART MMOLL BUN (Blood Urea 17 7 - 18 POWERCHART Nitrogen), S MGDL Creatinine 0.89 0.60 - POWERCHART 1.30 MGDL Calcium, Total, 8.9 8.8 - 10.2 POWERCHART S MGDL Anion Gap 9 (L) 10 - 20 POWERCHART MMOLL HXeGFR (MDRD) >60 >=60 POWERCHART [id number] eGFR >60 >=60 POWERCHART Black/ [id number] Czech Glucose 101 70 - 139 POWERCHART MGDL Specimen (Source) Anatomical Collection Method Collection Time Re ceived Time Location / / Volume Laterality Blood 01/18/2016 9:41 AM VEHICLE CHECK IN CLERK Isamar Salcedo M.D. LAB BLOOD ADD-ON Performing Organization Address City/State/ZIP Code Phon e Number POWERCHART documented in this encounter Visit Diagnoses Not on filedocumented in this encounter
--- OUTSIDE RECORDS SUMMARY | 2022-01-04 09:38 | XMS_ITS | Encounter Summary ---
:1935 Author Organization [facility] Address [address] [place] [address] Care Team Providers Name Role Phone Unavailable Primary Care Provider Unavailable Encounter Details Date Type Department Care Team Description 12/30/2015 Hospital Encounter HX [facility] Aleisha coyle M.D. [address] [id number] (Wo rk) Social History Tobacco Use Types Packs/Day Years Used Date Smoking Tobacco: Never Assessed Sex Assigned at Date Recorded Not on file documented as of this encounter Last Filed Vital Signs Vital Sign Reading Time Taken Comments Blood Pressure 164/44 12/30/2015 8:35 AM CDT Pulse 62 12/30/2015 8:35 AM CDT Temperature - - Respiratory Rate 20 12/30/2015 8:19 AM CDT Oxygen Saturation - - Inhaled Oxygen Concentration - - Weight 59.2 kg (130 lb 8.2 oz) 12/30/2015 8:19 AM CDT Height - - Body Mass Index 24.02 06/04/2015 11:49 AM CDT documented in this encounter Medications at Time of Discharge Medication Sig Dispensed Refills Start Date End Date aspirin [address] tablet Take 1 tablet by 0 201401/21/2019 mouth daily. biotin 10,000 mcg Take by mouth daily. 0 08/26/19 15 05/30/2018 tablet,disintegrating CALCIUM CARB/VIT Take by mouth daily. 0 1 01/21/2019 D3/MINERALS (CALCIUM-VITAMIN D ORAL) [id number] Take 1 capsule by 0 011 05/30/2018 oil 1,400 mg/5 mL liquid mouth daily. documented as of this encounter Progress Notes Aleisha Hermosillo M.D. - 12/30/2015 7:46 AM CDT Clinic Full Note CHIEF COMPLAINT/REASON FOR VISIT medication review HISTORY OF PRESENT ILLNESS Janeth presents today to review her meds by herself. She checks her blood pressure occ. She feels her mood and anxiety are about the same. She feels her memory is okay, but she did not remember gettingher flu shot 10 minutes after it was given. No chest pain, shortness of breath, or swelling. Last echo was in 05/2015 and cardiology wanted to see her back in February. MEDICATIONS Aricept 10 mg oral tablet, 10 mg, 1 tab(s), memoryPlease advise visit needed for further refills., PO, Bedtime, 0 refills aspirin 81 mg oral tablet, 81 mg, 1 tab(s), PO, Daily atenolol 50 mg oral tablet, 50 mg, 1 tab(s), high blood pressure, PO, Daily, 3 refills Biotin Forte oral tablet, 10,000 mcg, PO, Daily Calcium 600+D, 1 tab, PO, Daily Fish Oil oral capsule, 1 cap(s), 1400 mg, PO, Daily hydrochlorothiazide 12.5 mg oral tablet, 12.5 mg, 1 tab(s), high blood pressure, PO, Daily, 3 refills K-Dur 10 oral tablet, extended release, 10 meq, 1 tab(s), PO, Daily, 3 refills Lasix 20 mg oral tablet, 20 mg, 1 tab(s), PO, Daily, 0 refills losartan 100 mg oral tablet, 100 mg, 1 tab(s), high blood pressurePer provider, pt needs visit, PO,Daily, 0 refills Zoloft 50 mg oral tablet, 50 mg, 1 tab(s), anxiety, PO, Daily, 3 refills ALLERGIES lisinopril PAST MEDICAL HISTORY Chronic Anxiety NOS Dementia (Major Neurocognitive Disorder) NOS Gout NOS Hypertension Pure Hypercholesterolemia Historical Tick Bite PROCEDURES/SURGICAL HISTORY Echocardiogram (06/01/2015), Colonoscopy (08/28/2013), Echocardiogram (06/06/2013), Colonoscopy (11/08/2006), HC COLONOSCOPY W SNARE REMOVAL TUMOR/POLYP/LESION - 11/08/06 (11/08/2006), Hysterectomy (1975), C TOTAL ABDOM HYSTERECTOMY - 1970's - Hysterectomy, Total Abdominal (bleeding) - benign (). SOCIAL HISTORY Date Time: 12/30/2015 08:19 Tobacco: Smoking Status: Never smoker Exposure: Care provider denies smoking in home, Other: never Alcohol: Use: Yes Recreational Drugs: Use: None Type: No Results Found FAMILY HISTORY Mother ( at 91 year(s)):Positive: Diabetes mellitus; Hypertension Father ( at 76 year(s)):Positive: Alzheimer's disease; Hypertension Brother: Negative: Son:Positive: Hypertension SYSTEMS REVIEW As per HPI. VITAL SIGNS T: 36.7 ??C (Core) HR: 62 RR: 20 BP: 164 / 44 WT: 59.2 kg PHYSICAL EXAMINATION General: Alert and oriented. No acute distress. Neck: Supple. No lymphadenopathy. No carotid bruits. Cardiovascular exam: Regular rate and rhythm. Normal S1 and S2. 3/6 murmur. Lungs: Clear to auscultation bilaterally. Extremities: No pedal edema. IMPRESSION/REPORT/PLAN 1. Dementia (Major Neurocognitive Disorder) NOS Patient continues to have fairly significant dementia with short term memory problems. No one came along to her appt today, so it is difficult to know how things are going, but my guess is they continue to progress. We are going to continue Aricept. Patient signed a PHI for her , so we will speak with him. She drove herself to the appt today and I am concerned that she may become lost if she is by herself. Patient has been seen by OT. Ordered: OV Est Pt Level 4 - 55602 - 25 min 2. Hypertension (HTN) NOS Blood pressures are a little high, but patient gets anxious when she comes in. We are not going to make any changes, but will have her come back and see the nurse. Ordered: OV Est Pt Level 4 - 32821 - 25 min 3. Regurgitation Aortic NOS Patient has f/u with cards in February. Ordered: OV Est Pt Level 4 - 74385 - 25 min 4. Anxiety NOS Continue Zoloft. Ordered: OV Est Pt Level 4 - 99656 - 25 min Electronically Signed By: ALEISHA GOLDEN MD On: 01/02/2016 07:49 AM Source: [facility] POWERCHART Document Id: [id number] documented in this encounter Miscellaneous Notes Miscellaneous - Aleisha Hermosillo M.D. - 01/07/2016 3:32 PM CDT Normal Results Letter January 07, 2016 JANETH RANGEL [address] [facility] [id number] Dear JANETH RANGEL, Please review your labs below. Your potassium is low at 2.9. Please increase your potassium to two times a day. The rest of the labs look okay. Please follow up with us as we discussed during your visit or sooner if you have any concerns. If you have questions or concerns, please do not hesitate to call our office. Result Name Current Result Previous Result Normal Range Sodium Lvl (mM/L) 138.7 12/30/2015 138.1 06/04/2015 135.0 - 145.0 Potassium Lvl (mmol/L) (L) 2.9 12/30/2015 3.6 06/04/2015 3.6 - 4.8 Chloride (mmol/L) 101 12/30/2015 (L) 96 12/30/2014 98 - 107 CO2 (mmol/L) 24.8 12/30/2015 25.5 12/30/2014 23.0 - 29.0 AGAP (mmol/L) 13 12/30/2015 17 12/30/2014 10 - 20 Glucose Lvl (mg/dL) 128 12/30/2015 106 12/30/2014 70 - 139 Creatinine (mg/dL) 1.06 12/30/2015 1.18 06/04/2015 0.60 - 1.30 EGFR (MDRD) (mL/min/1.73m2) 60 12/30/2015 (L) 54 06/04/2015 >=60 - BUN (mg/dL) 13 12/30/2015 (H) 21 12/30/2014 7 - 18 Calcium Lvl (mg/dL) 9.4 12/30/2015 9.9 12/30/2014 8.8 - 10.2 Sincerely, ALEISHA GOLDEN [address] [place], [place] [address] [place] [address] Electronic Signature Electronically Signed By: ALEISHA GOLDEN MD On: January 07, 2016 This document has images extracted. Source: [facility] [employer] Group[employer]ART Document Id: [id number] Miscellaneous - Aleisha Hermosillo M.D. - 12/30/2015 8:47 AM CDT Ambulatory Patient Summary [address] [id number] Visit Information Name: JANETH RANGEL [facility] Number: [id number] Current Date: 12/30/2015 08:47:56 Physicians Attending Provider: ALEISHA GOLDEN MD Primary Care Provider: ALEISHA GOLDEN MD JANETH RANGELE has been given the following list of [...] Tablet(s), Oral, once a day (at bedtime) memory This is a CHANGE Routed to [address] [address] furosemide (Lasix 20 mg oral tablet) 1 Tablet(s), Oral, once a day hydrochlorothiazide (hydrochlorothiazide 12.5 mg oral tablet) 1 Tablet(s), Oral, once a day high blood pressure losartan (losartan 100 mg oral tablet) 1 Tablet(s), Oral, once a day high blood pressure This is a CHANGE [facility] [address] [address] multivitamin (Biotin Forte oral tablet) 10,000 mcg, Oral, once a day omega-3 polyunsaturated fatty acids (Fish Oil oral capsule) 1 cap, Oral, once a day 1400 mg potassium chloride (K-Dur 10 oral tablet, extended release) 1 Tablet(s), Oral, once a day sertraline (Zoloft 50 mg oral tablet) 1 Tablet(s), Oral, once a day anxiety Stop Taking the Following Medications: Medication list as of 12-30-15 08:47 Attention: If you have any medications at [...] Electronically Signed By: ALEISHA GOLDEN MD Signed On:30-DEC-2015 08:47:48 Your Allergies & Intolerances Substance Reaction Symptoms [...] if you dont have one. Go to [email or web address] and click on Create Your Account. Then, follow the directions to complete the online form. Youll be asked for your [facility] number which you can find at the top of this document. Your Goals/Additional instructions: Source: [facility] POWERCHART Document Id: [id number] Miscellaneous - Aleisha Hermosillo M.D. - 12/30/2015 8:47 AM CDT Ambulatory Discharge Medication List [address] [id number] Visit Information Name: JANETH RANGEL [facility] Number: [id number] Current Date: 12/30/2015 08:47:55 Attending Provider: ALEISHA GOLDEN MD Primary Care Provider: ALEISHA GOLDEN MD JANETH RANGELE has been given the following list of [...] Tablet(s), Oral, once a day (at bedtime) memory This is a CHANGE Routed to [facility] [address] [address] furosemide (Lasix 20 mg oral tablet) 1 Tablet(s), Oral, once a day hydrochlorothiazide (hydrochlorothiazide 12.5 mg oral tablet) 1 Tablet(s), Oral, once a day high blood pressure losartan (losartan 100 mg oral tablet) 1 Tablet(s), Oral, once a day high blood pressure This is a CHANGE Routed to [address] [address] multivitamin (Biotin Forte oral tablet) 10,000 mcg, Oral, once a day omega-3 polyunsaturated fatty acids (Fish Oil oral capsule) 1 cap, Oral, once a day 1400 mg potassium chloride (K-Dur 10 oral tablet, extended release) 1 Tablet(s), Oral, once a day sertraline (Zoloft 50 mg oral tablet) 1 Tablet(s), Oral, once a day anxiety Stop Taking the Following Medications: Medication list as of 12-30-15 08:47 Attention: If you have any medications at [...] Electronically Signed By: ALEISHA GOLDEN MD Signed On:30-DEC-2015 08:47:48 Additional Information: Source: [email or web address] Document Id: [id number] Miscellaneous - Janeth Og, L.P.N. - 12/30/2015 8:35 AM CDT Ambulatory Vitals Height Weight Ambulatory Vitals Height Weight Entered On: 12/30/2015 8:36 CDT Performed On: 12/30/2015 8:35 CDT by JANETH GO LPN Vitals/Ht/Wt Peripheral Pulse Rate : 62 /min Systolic Blood Pressure : 164 mmHg (>HHI) Diastolic Blood Pressure : 44 mmHg (<LLOW) NIBP Mean : 84 mmHg BP Location : Left upper extremity Blood Pressure Cuff Size : Regular JANETH OG LPN - 12/30/2015 8:35 CDT Source: [email or web address] Document Id: [id number] CDT!8 Miscellaneous - Janeth Og L.P.N. - 12/30/2015 8:19 AM CDT Adult Sales Order Coordinator Intake/History Adult Sales Order Coordinator Intake/History Entered On: 12/30/2015 8:22 CDT Performed On: 12/30/2015 8:19 CDT by JANETH OG LPN Intake Chief Complaint : medication review Temperature Core : 36.7 DegC(Converted to: 98.1 DegF) Peripheral Pulse Rate : 65 /min Respiratory Rate : 20 /min Systolic Blood Pressure : 155 mmHg (HI) Diastolic Blood Pressure : 47 mmHg (<LLOW) NIBP Mean : 83 mmHg BP Location : Left upper extremity Blood Pressure Cuff Size : Regular Actual Weight : 59.2 kg(Converted to: 130 lb 8 oz) Weight Source : Standing scale Dosing Weight Clinic : 59.2 kg JANETH OG LPN - 12/30/2015 8:19 CDT General Info Information Given By : Patient Languages : Syriac Is Patient Female and 13-50 no hysterectomy : No JANETH OG LPN - 12/30/2015 8:19 CDT Subjective Pain Symptoms : No JANETH OG LPN - 12/30/2015 8:19 CDT Dependent Habits Exposure to Tobacco Smoke : Care provider denies smoking in home, Other: never Smoking Status : Never smoker Tobacco 2A : No Tobacco Use/Currently Using : No Tobacco Use/Last 30 Days : No Tobacco Use/Last 12 months : No Alcohol Use : Yes JANETH OG LPN - 12/30/2015 8:19 CDT Caffeine Use Grid Caffeine Use : Current Type : Coffee Frequency : Daily Amount : 2 JANETH OG LPN - 12/30/2015 8:19 CDT Recreational Drug Use Grid Drug Use : None JANETH OG LPN - 12/30/2015 8:19 CDT Source: [facility] POWERCHART Document Id: [id number] CDT!37 Miscellaneous - Janeth Og L.PMatti - 12/30/2015 8:17 AM CDT Health Assessment Health Assessment Entered On: 12/30/2015 8:18 CDT Performed On: 12/30/2015 8:17 CDT by JANETH OG LPN Health Assessment Complete Health Assessment Complete or Modified : Annual Health Assessment Annual Health Assessment Completed : Yes JANETH OG LPN - 12/30/2015 8:17 CDT Nutrition Nutrition Risk Factors by History Adult : None JANETH OG LPN - 12/30/2015 8:17 CDT Functional Current Daily Living Assistance : None JANETH OG LPN - 12/30/2015 8:17 CDT Dependent Habits Exposure to Tobacco Smoke : Care provider denies smoking in home, Other: never Smoking Status : Never smoker Tobacco 2A : No Tobacco Use/Currently Using : No Tobacco Use/Last 30 Days : No Tobacco Use/Last 12 months : No Alcohol Use : Yes JANETH OG LPN - 12/30/2015 8:17 CDT Caffeine Use Grid Caffeine Use : Current Type : Coffee Frequency : Daily Amount : 2 JANETH OG LPN - 12/30/2015 8:17 CDT Recreational Drug Use Grid Drug Use : None JANETH OG LPN - 12/30/2015 8:17 CDT AUDIT Tool How Often Do You Have A Drink : Monthly or less JANETH OG LPN - 12/30/2015 8:17 CDT Psychosocial Domestic Abuse Concerns : None Behavioral Health Screen/Safety Assmt : No Episcopal Preference : Unknown JANETH OG LPN - 12/30/2015 8:17 CDT Advance Directive Advanced Directives : No Advance Directive Additional Information : No JANETH OG LPN - 12/30/2015 8:17 CDT Educ Needs Learning Style Preference Adult Grid Patient : Demonstration, Printed materials Family : None JANETH OG LPN - 12/30/2015 8:17 CDT Source: [facility] POWERCHART Document Id: [id number] CDT!38 documented in this encounter Plan of Treatment Not on filedocumented as of this encounter Procedures Procedure Name Priority Date/Time Associated Diagnosis Comme nts BASIC METABOLIC Routine 12/30/2015 8:57 AM Result s for this PANEL, S/P CDT procedure are i n the results section. documented in this encounter Results (ABNORMAL) BMP (Basic Metabolic Panel) (12/30/2015 8:57 AM CDT) P athologist Signature Sodium, S 138.7 135.0 - POWERCHART 145.0 MML Potassium, S 2.9 (L) 3.6 - 4.8 POWERCHART MMOLL Chloride, S 101 98 - 107 POWERCHART MMOLL CO2 Total 24.8 23.0 - POWERCHART 29.0 MMOLL BUN (Blood Urea 13 7 - 18 POWERCHART Nitrogen), S MGDL Creatinine 1.06 0.60 - POWERCHART 1.30 MGDL Calcium, Total, 9.4 8.8 - 10.2 POWERCHART S MGDL Anion Gap 13 10 - 20 POWERCHART MMOLL HXeGFR (MDRD) 50 (L) >=60 POWERCHART [id number] eGFR 60 >=60 POWERCHART Black/ [id number] Haitian Glucose 128 70 - 139 POWERCHART MGDL Specimen (Source) Anatomical Collection Method Collection Time Re ceived Time Location / / Volume Laterality Blood 12/30/2015 8:57 AM CDT Aleisha Gonzales M.D. LAB BLOOD ADD-ON Performing Organization Address City/State/ZIP Code Phon e Number POWERCHART documented in this encounter Visit Diagnoses Not on filedocumented in this encounter
--- OUTSIDE RECORDS SUMMARY | 2022-01-04 09:38 | XMS_ITS | Encounter Summary ---
:1935 Author Organization [facility] Address [address] [place] [address] Care Team Providers Name Role Phone Unavailable Primary Care Provider Unavailable Encounter Details Date Type Department Care Team Description 02/24/2016 Hospital Encounter HX [facility] Aleisha coyle M.D. [address] [address] (Wo rk) Social History Tobacco Use Types Packs/Day Years Used Date Smoking Tobacco: Never Assessed Sex Assigned at Date Recorded Not on file documented as of this encounter Last Filed Vital Signs Vital Sign Reading Time Taken Comments Blood Pressure 170/49 02/24/2016 11:25 AM PROCESS DESIGNER Pulse 61 02/24/2016 11:25 AM PROCESS DESIGNER Temperature - - Respiratory Rate 18 02/24/2016 11:25 AM PROCESS DESIGNER Oxygen Saturation - - Inhaled Oxygen Concentration - - Weight 57 kg (125 lb 10.6 oz) 02/24/2016 11:25 AM PROCESS DESIGNER Height - - Body Mass Index 23.12 06/04/2015 11:49 AM CDT documented in this encounter Medications at Time of Discharge Medication Sig Dispensed Refills Start Date End Date aspirin [address] tablet Take 1 tablet by 0 201401/21/2019 mouth daily. biotin 10,000 mcg Take by mouth 0 08/25/201405/05 tablet,disintegrating daily. CALCIUM CARB/VIT Take by mouth 0 11/09/201001/21 D3/MINERALS daily. (CALCIUM-VITAMIN D ORAL) chlorthalidone Take 1 tablet by 0 02/24/201610/2016 (for_HYGROTEN) 25 mg mouth daily. tablet furosemide (LASIX) 20 mg Take 1 tablet by 0 02/2301/20/2017 tablet mouth daily. memantine (NAMENDA XR) 7 Take 1 capsule by 0 02/0406/07/2017 mg 24 hr capsule mouth daily. kbwyu-[id number]-epa-fish oil Take 1 capsule by 0 08/201005/30/2018 1,400 mg/5 mL liquid mouth daily. potassium chloride Take 1 tablet by 0 01/07/2016 02/06/2017 (for_KLOR-CON M) 10 mEq ER mouth 2 (two) times tablet a day. documented as of this encounter Progress Notes Aleisha Hung M.D. - 02/24/2016 12:01 PM CST Clinic Full Note CHIEF COMPLAINT/REASON FOR VISIT Follow up on B/P HISTORY OF PRESENT ILLNESS Janeth presents today to follow up on her blood pressure. She comes with her today. She denies any concerns. She initially states she has had no chest pain but her reminds her she had 1episode recently when she was being active. This resolved with rest. No problems with breathing or swelling in her ankles. Appetite is okay but states she does not eat much. Janeth has no concerns regarding her memory but Rickey reports it is certainly not getting better. He has previously shared that she continues to have troubles and repeatedly asks the same question. She will go to the grocery store and only come back with 1 of the items on her last or she forgets the list altogether. He has been reluctant to stop her from driving. Janeth reports that she cleans the house and likes to walkwhen the weather is nice. [place] and [place]. She will sometimes play cardsbut is not much of a reader. No side effects with meds. MEDICATIONS Aricept 10 mg oral tablet, 10 mg, 1 tab(s), memory, PO, Bedtime, 3 refills aspirin 81 mg oral tablet, 81 mg, 1 tab(s), PO, Daily atenolol 50 mg oral tablet, 50 mg, 1 tab(s), high blood pressure, PO, Daily, 3 refills Biotin Forte oral tablet, 10,000 mcg, PO, Daily Calcium 600+D, 1 tab, PO, Daily Fish Oil oral capsule, 1 cap(s), 1400 mg, PO, Daily hydroCHLOROthiazide 12.5 mg oral tablet, 12.5 mg, 1 tab(s), high blood pressure, PO, Daily, 1 refills K-Dur 10 oral tablet, extended release, 10 meq, 1 tab(s), PO, 2xDay, 3 refills Lasix 20 mg oral tablet, 20 mg, 1 tab(s), PO, Daily, 1 refills losartan 100 mg oral tablet, 100 mg, 1 tab(s), high blood pressure, PO, Daily, 3 refills Zoloft 50 mg oral tablet, 50 [...] - benign (). SOCIAL HISTORY Date Time: 02/24/2016 11:25 Tobacco: Smoking Status: Never smoker Exposure: Care provider denies smoking in home, Other: never Alcohol: Use: No Results Found Recreational Drugs: Use: None Type: No Results Found FAMILY HISTORY Mother ( at 91 year(s)):Positive: Diabetes mellitus; Hypertension Father ( at 76 year(s)):Positive: Alzheimer's disease; Hypertension Brother: Negative: Son:Positive: Hypertension SYSTEMS REVIEW As per HPI. Mood is okay. VITAL SIGNS T: 36.5 ??C (Core) HR: 61 RR: 18 BP: 170 / 49 WT: 57.0 kg PHYSICAL EXAMINATION General: Alert and oriented. No acute distress. Neck: Supple. No lymphadenopathy. No carotid bruits but radiating murmur. Cardiovascular exam: Regular rate and rhythm. Normal S1 and S2. 3/6 systolic murmur. Lungs: Clear to auscultation bilaterally. Extremities: No pedal edema. IMPRESSION/REPORT/PLAN 1. Hypertension HTN NOS Blood pressure is elevated. We are going to change hydrochlorothiazide to chlorthalidone 25 mg daily. We will see her back in 1 month. She has follow up with cardiology at that time. Ordered: OV Est Pt Level 4 - 27813 - 25 min 2. Dementia (Major Neurocognitive Disorder) NOS We are going to continue Aricept but will also add Namenda at 7 mg extended- release daily. We discussed that patient should retire from driving. I have significant concerns about her getting lost on her route. She states that she is okay with this but has stated that it will be a challenge. We will see her back in 1 month and will plan on increasing her Namenda. Ordered: OV Est Pt Level 4 - 86600 - 25 min 3. Anxiety NOS Patient states that her mood is okay and corroborates this. We will continue Zoloft. Ordered: OV Est Pt Level 4 - 58727 - 25 min Orders: chlorthalidone, 25 mg = 1 tab(s), PO, Daily, blood pressure, # 90 tab(s), 3 Refill(s), Maintenance,Pharmacy: [facility] furosemide, 20 mg = 1 tab(s), PO, Daily, water pill, # 90 tab(s), 3 Refill(s), Maintenance, Pharmacy: [facility], Got escribe message that script did not go through, resending memantine, 7 mg = 1 cap(s), PO, Daily, memory, # 30 cap(s), 3 Refill(s), Maintenance, Pharmacy: [facility] Electronically Signed By: ALEISHA HUNG MD On: 02/24/2016 12:05 PM Source: [facility] POWERCHART Document Id: [id number] ESS DESIGNER documented in this encounter Miscellaneous Notes Miscellaneous - Aleisha Hung M.D. - 02/24/2016 11:45 AM PROCESS DESIGNER Ambulatory Patient Summary [address] [facility] [place] [place] [id number] Visit Information Name: JANETH RANGEL [facility] Number: [id number] Current Date: 02/24/2016 11:45:45 Physicians Attending Provider: ALEISHA HUNG MD Primary Care Provider: ALEISHA HUNG MD JANETH RANGEL has been given the [...] 600+D) 1 tab, Oral, once a day chlorthalidone (chlorthalidone 25 mg oral tablet) 1 Tablet(s), Oral, once a day blood pressure New Routed to [address] [id number] donepezil (Aricept 10 mg oral tablet) 1 Tablet(s), Oral, once a day (at bedtime) memory furosemide (Lasix 20 mg oral tablet) 1 Tablet(s), Oral, once a day water pill Routed to [address] [address] losartan (losartan 100 mg oral tablet) 1 Tablet(s), Oral, once a day high blood pressure memantine (Namenda XR 7 mg oral capsule, extended release) 1 cap, Oral, once a day memory New Routedto [address] [id number] multivitamin (Biotin Forte oral tablet) 10,000 mcg, Oral, once a day omega-3 polyunsaturated fatty acids (Fish Oil oral capsule) 1 cap, Oral, once a day 1400 mg potassium chloride (K-Dur 10 oral tablet, extended release) 1 Tablet(s), Oral, two times a day This is a CHANGE sertraline (Zoloft 50 mg oral tablet) 1 Tablet(s), Oral, once a day anxiety Stop Taking the Following Medications: hydroCHLOROthiazide (hydroCHLOROthiazide 12.5 mg oral tablet) Medication list as of 02-24-16 11:45 Attention: If you have any medications at home that are not on this list, DO NOT take them until youcontact your provider for clarification. Give a copy of your medication list to your primary care provider. Update your medication list any time medications or doses are changed and carry your medication list at all times in case of emergency. Electronically Signed By: ALEISHA HUNG MD Signed On:24-FEB-2016 11:45:40 Your Allergies & Intolerances Substance Reaction Symptoms [...] Your Upcoming Appointments Date Time Location Provider 03/24/2016 08:00 [facility] 1 03/31/2016 11:15 [facility] Cardiology Pinky Singh MD Attention: Contact your local Clinic if further [...] if you dont have one. Go to [email or web address] and click on Create Your Account. Then, follow the directions to complete the online form. Youll be asked for your [facility] number which you can find at the top of this document. Your Goals/Additional instructions: Source: [facility] POWERCHART Document Id: [id number] ESS DESIGNER Miscellaneous - Aleisha Hung M.D. - 02/24/2016 11:45 AM PROCESS DESIGNER Ambulatory Discharge Medication List [address] [place] [id number] Visit Information Name: JANETH RANGEL [facility] Number: [id number] Current Date: 02/24/2016 11:45:44 Attending Provider: ALEISHA HUNG MD Primary Care Provider: ALEISHA HUNG MD JANETH RANGEL has been given the [...] 600+D) 1 tab, Oral, once a day chlorthalidone (chlorthalidone 25 mg oral tablet) 1 Tablet(s), Oral, once a day blood pressure New Routed to [address] [address] donepezil (Aricept 10 mg oral tablet) 1 Tablet(s), Oral, once a day (at bedtime) memory furosemide (Lasix 20 mg oral tablet) 1 Tablet(s), Oral, once a day water pill Routed to [address] [address] losartan (losartan 100 mg oral tablet) 1 Tablet(s), Oral, once a day high blood pressure memantine (Namenda XR 7 mg oral capsule, extended release) 1 cap, Oral, once a day memory [facility] [address] [place] [id number] multivitamin (Biotin Forte oral tablet) 10,000 mcg, Oral, once a day omega-3 polyunsaturated fatty acids (Fish Oil oral capsule) 1 cap, Oral, once a day 1400 mg potassium chloride (K-Dur 10 oral tablet, extended release) 1 Tablet(s), Oral, two times a day This is a CHANGE sertraline (Zoloft 50 mg oral tablet) 1 Tablet(s), Oral, once a day anxiety Stop Taking the Following Medications: hydroCHLOROthiazide (hydroCHLOROthiazide 12.5 mg oral tablet) Medication list as of 02-24-16 11:45 Attention: If you have any medications at home that are not on this list, DO NOT take them until youcontact your provider for clarification. Give a copy of your medication list to your primary care provider. Update your medication list any time medications or doses are changed and carry your medication list at all times in case of emergency. Electronically Signed By: ALEISHA HUGN MD Signed On:24-FEB-2016 11:45:40 Additional Information: Source: [facility] POWERCHART Document Id: [id number] ESS DESIGNER Miscellaneous - Maximilian Costa, L.P.N. - 02/24/2016 11:25 AM CST Adult Tree Shear Operator Intake/History Adult Tree Shear Operator Intake/History Entered On: 02/24/2016 11:28 PROCESS DESIGNER Performed On: 02/24/2016 11:25 PROCESS DESIGNER by MAXIMILIAN COSTA LPN Intake Chief Complaint : Follow up on B/P Temperature Core : 36.5 DegC(Converted to: 97.7 DegF) Peripheral Pulse Rate : 61 /min Respiratory Rate : 18 /min Heart Rhythm : Regular Systolic Blood Pressure : 170 mmHg (>HHI) Diastolic Blood Pressure : 49 mmHg (<LLOW) NIBP Mean : 89 mmHg BP Location : Left upper extremity Blood Pressure Cuff Size : Regular Actual Weight : 57.0 kg(Converted to: 125 lb 11 oz) Weight Source : Standing scale Dosing Weight Clinic : 57 kg MAXIMILIAN COSTA LPN - 02/24/2016 11:25 PROCESS DESIGNER General Info Information Given By : Patient Languages : Kyrgyz Is Patient Female and 13-50 no hysterectomy : No MAXIMILIAN COSTA LPN - 02/24/2016 11:25 PROCESS DESIGNER Subjective Pain Symptoms : No MAXIMILIAN COSTA LPN - 02/24/2016 11:25 PROCESS DESIGNER Dependent Habits Exposure to Tobacco Smoke : Care provider denies smoking in home, Other: never Smoking Status : Never smoker Tobacco 2A : No Tobacco Use/Currently Using : No Tobacco Use/Last 30 Days : No Tobacco Use/Last 12 months : No MAXIMILIAN COSTA LPN - 02/24/2016 11:25 PROCESS DESIGNER Caffeine Use Grid Caffeine Use : Current Type : Coffee Frequency : Daily Amount : 2 MAXIMILIAN COSTA LPN - 02/24/2016 11:25 PROCESS DESIGNER Recreational Drug Use Grid Drug Use : None MAXIMILIAN COSTA [facility] 02/24/2016 11:25 PROCESS DESIGNER [facility] Document Id: [id number] PROCESS DESIGNER!37 ESS DESIGNER documented in this encounter Plan of Treatment Not on filedocumented as of this encounter Visit Diagnoses Not on filedocumented in this encounter
--- OUTSIDE RECORDS SUMMARY | 2022-01-04 09:38 | XMS_ITS | Encounter Summary ---
:1935 Author Organization [facility] Address [address] [place] [address] Care Team Providers Name Role Phone Mago Hung M.D. Primary Care Provider Encounter Details Date Type Department Care Team Description 11/04/2016 Hospital Encounter HX [facility] ED Latasha Saunders M.D. 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 - 11/04/2016 3:47 PM CDT ED Discharge Instructions [address] [address] Name: JUAN J DUENAS Date of : 1935 12:00 AM Visit Date: 11/04/2016 2:34 PM [facility] Number: [id number] Address: [address] [facility] [id number] Primary Care Provider: MAGO HUNG MD IMPORTANT: [facility] in [place] would like to thank you for allowing us to assist you with your healthcare needs. The following includes patient education materials and informationregarding your injury/illness. Diagnosis: Erythema NOS; Gout Acute; Pain Ankle R Follow-Up Instructions: With: Address: When: MAGO RACHEAL RUTHERFORDANDERS [address] [place] [phone] Business (1) Within 3 - 5 days Comments: for re-evaluation, and possibly longer steroid use for gout. Your Upcoming Appointments: Date Time Location Provider 11/09/2016 11:45 [facility] Mago Carroll MD Patient Education Materials: Gout Gout or gouty arthritis is an inflammation of a joint due to a build-up of gout crystals in the joint fluid. This occurs when there is an excess uric acid (a normal waste product) in the body. Uric acid builds up in the body when the kidneys are unable to filter enough of it from the blood. This mayoccur with aging or kidney disease. Gout occurs more often in persons with obesity, diabetes, hypertension, high fats in the blood. It may be present in other family members. Alcohol and certain foods (such as shellfish and alcohol) may increase uric acid levels in the blood and cause a gout attack. Gout causes a hot, red, swollen and painful joint. If you have had one episode of gout, you are likely to have another. An acute attack of gout can be treated with anti-inflammatory and other medicine.If these attacks become frequent it may be necessary to take a daily medicine to help the kidney remove uric acid from the body. Home Care: Apply an ice pack (ice cubes in a plastic bag, wrapped in a towel) over the injured area for 20 minutes every 1-2 hours the first day for pain relief. Continue this 3-4 times a day until the pain and swelling goes away. Avoid alcohol and foods listed below (see Prevention) during a gout attack. Drink extra fluid to help flush the uric acid through your kidneys. Rest painful joints. If gout affects the joints of your foot or leg, you may want to use crutches for the first few days to keep from bearing weight on the foot or leg. Take anti-inflammatory medicine as directed. You may be prescribed Indocin (indomethacin), or yabh-yts-jibrmhm drugs such as ibuprofen (Motrin, Advil) or naproxen (Naprosyn or Aleve). Tylenol will not be as effective since it is not an anti-inflammatory drug. If narcotic pain medicines have been prescribed, they should be used in addition to the anti-inflammatory drugs and only for severe pain. Avoid aspirin since this may slow down the flushing of the uricacid through your kidneys. Preventing Future Attacks: ?? Minimize or avoid alcohol use. Excess alcohol intake can cause a gout attack. ?? Foods high in purine form uric acid in the body and increase your risk for a gout attack. Therefore, avoid the following foods: certain seafoods (anchovies, sardines, shrimp, scallops, gallardo, mackerel); wild game, meat extracts and meat gravies; organ foods (kidney, liver, calf brain, sweetbreads). Avoid drinks with fructose (a type of sugar). ?? Limit the following foods to one serving a day: red meat and pork, fish, poultry, dried beans andpeas, asparagus, mushrooms, cauliflower and spinach. ?? If you are overweight, this is a risk factor and you should talk to your doctor about a weight reduction plan. However, avoid fasting or extreme low calorie diets (less than 900 mickey/day) which will increase uric acid levels in the body. ?? If you are diabetic or have high blood pressure, work with your doctor to achieve control of these conditions. ?? Avoid injury to the involved joint since this can lead to a gout attack. ?? Colchicine can be effective in stopping a gout attack. If you were given a prescription of this medicine for future use, begin it at the first sign of an attack. Colchicine may cause nausea, vomiting, diarrhea and other side effects. Follow Up with your doctor as advised or if you are not improving after three days of treatment. Get Prompt Medical Attention if any of the following occur: ?? Fever over 100.4?F (38.0?C) with worsening joint pain ?? Increasing redness around the joint ?? Pain developing in another joint ?? Repeated vomiting, abdominal pain, or blood in the vomit or stool (black or red color) ?? [id number] Marjorie Barahona, [address] [place] [address], [place] [address]. All rights reserved. This information is not [...] online form. Youll be asked for your [facility] number which you can find at the top of this document. ED Tests and Procedures: Order Status Discharge Prescriptions & Home Medications: Medication/Strength Dose Route Frequency Indications/Special Instructions/Comments/Notes ibuprofen (ibuprofen 200 mg oral tablet) 400 mg Oral every 6 hours as needed for ankle pain Take with food. predniSONE (predniSONE 20 mg oral tablet) 40 mg Oral once a day for 4 Days 40 mg (2 pills) due everyday around noon. Next dose due / at noon. brdrsmetoprolol (metoprolol tartrate 50 mg oral tablet) 50 mg Oral two times a day blood pressure/heart losartan (losartan 100 mg oral tablet) 100 mg Oral once a day high blood pressure colchicine (colchicine 0.6 mg oral tablet) See Instructions gout pain 2 tabs (1.2mg) at the first sign of a gout flare followed by 0.6 mg one hour later sertraline (Zoloft 50 mg oral tablet) 50 mg Oral once a day anxiety *furosemide (Lasix 20 mg oral tablet) 20 mg Oral once a day water pill chlorthalidone (chlorthalidone 25 mg oral tablet) 25 mg Oral once a day blood pressure potassium chloride (K-Dur 10 oral tablet, extended release) 10 meq Oral two times a day donepezil (Aricept 10 mg oral tablet) 10 mg Oral once a day (at bedtime) memory multivitamin (Biotin Forte oral tablet) 10,000 mcg Oral once a day aspirin (aspirin 81 mg oral tablet) 81 mg Oral once a day calcium-vitamin D (Calcium 600+D) 1 tab Oral once a day omega-3 polyunsaturated fatty acids (Fish Oil oral capsule) 1 cap(s) Oral once a day 1400 mg * You have let us know that you are not taking this medication as listed. Please talk with your primary care provider or the health care provider who prescribed the medication as soon as possible. Comment: Attention: If you have any medications [...] arrange a ride home with a responsible libertarian. CLAIRE Calvillo CAROL LAVONNE , or responsible libertarian have received this information and my questions have been answered. I have discussed any challenges I see with this plan with the nurse or physician. Patient Signature or Responsible Constitution Party/Relationship Date Time Provider Signature Date Time [...] arrange a ride home with a responsible libertarian. I, JUAN J DUENAS , or responsible libertarian have received this information and my questions have been answered. I have discussed any challenges I see with this plan with the nurse or physician. Patient Signature or Responsible Constitution Party/Relationship Date Time Provider Signature Date Time This document has images extracted. Please consider using [employer] for all your patient education needs. Source: [employer]OWER[employer] Document Id: [id number] Carlos Eduardo Stockton R.N. - 11/04/2016 3:47 PM CDT ED Depart Summary [facility] Emergency Department Clinical Discharge Summary PERSON INFORMATION Name JUAN J DUENAS Age 81 Years 1935 12:00 AM Sex Female Language Tongan PCP MAGO HUNG MD Marital Status Visit Id Visit Reason Gout pain; gout right foot/ankle Specialty Enc Type Emergency Med Service Emergency Medicine Referred by Track Group [facility] ED Discharge 11/04/2016 3:47 PM Tracking Id [id number] Checkout 11/04/2016 3:47 PM Checkin 11/04/2016 2:34 PM Acuity 3 -Urgent Dispo Type * Discharged to Home or Self Care Arrival 11/04/2016 2:34 PM Reg Status Complete LOS 000 01:13 Address: [address] [place] [phone] Comment: PROVIDER INFORMATION Provider Role Provider Contact Time OLIVIA SAUNDERS MD ED Provider 11/04/16 14:37 CARLOS EDUARDO STOCKTON RN ED Nurse 11/04/16 14:41 DIAGNOSIS Erythema NOS; Gout Acute; Pain Ankle R Comment: PATIENT EDUCATION INFORMATION Instructions: GOUTY ARTHRITIS Follow up: With: Address: When: MAGO RACHEAL FELICIANO [address] [place] [phone] Business () Within 3 - 5 days Comments: for re-evaluation, and possibly longer steroid use for gout. Source: [employer] Document Id: [id number] Carlos Eduardo Stockton R.N. - 11/04/2016 3:46 PM CDT ED Disposition Summary ED Disposition Summary Entered On: 11/04/2016 15:46 CDT Performed On: 11/04/2016 15:46 CDT by CARLOS EDUARDO STOCKTON RN ED Disposition Summary Printed Discharge Instructions Given to Patient : Yes 30 Minutes Critical Care : No CARLOS EDUARDO STOCKTON RN - 11/04/2016 15:46 [address] [facility] Document Id: [id number] CDT!4 documented in this encounter Medications at Time of Discharge Medication Sig Dispensed Refills Start Date End Date aspirin [address] tablet Take 1 tablet by 0 201401/21/2019 mouth daily. atenolol (for_TENORMIN) 50 Take 1 tablet by 0 05/04/2017 mg tablet mouth daily. biotin 10,000 mcg Take by mouth 0 08/25/201405/05 tablet,disintegrating daily. CALCIUM CARB/VIT Take by mouth 0 11/09/201001/21 D3/MINERALS daily. (CALCIUM-VITAMIN D ORAL) chlorthalidone Take 1 tablet by 0 02/24/201610/2016 (for_HYGROTEN) 25 mg mouth daily. tablet colchicine [...] mouth 2 (two) times tablet a day. hpdkz-1o-xzs-epa-fish oil Take 1 capsule by 0 08/201005/30/2018 1,400 mg/5 mL liquid mouth daily. potassium chloride Take 1 tablet by 0 01/07/2016 02/06/2017 (for_KLOR-CON M) 10 mEq ER mouth 2 (two) times tablet a day. predniSONE (for_DELTASONE) daily. 0 7 05/30/2018 20 mg tablet sertraline (ZOLOFT) 50 mg Take 1 tablet by 0 0705/201601/11/2017 tablet mouth daily. documented as of this encounter ED Notes Carlos Eduardo Stockton R.N. - 11/04/2016 3:46 PM CDT ED Pain Assessment ED Pain Assessment Entered On: 11/04/2016 15:46 CDT Performed On: 11/04/2016 15:46 CDT by CARLOS EDUARDO STOCKTON RN Pain Assessment Pain Symptoms : Yes CARLOS EDUARDO STOCKTON RN - 11/04/2016 15:46 CDT Pain Scale Pain Scale Verbal 0-10 : Open CARLOS EDUARDO STOCKTON RN - 11/04/2016 15:46 CDT Pain Pain Assessment Grid Pain 1 Location : Ankle Intensity : 1 CARLOS EDUARDO STOCKTON RN - 11/04/2016 15:46 CDT [facility] Document Id: [id number] CDT!10 Olivia Saunders M.D. - 11/04/2016 3:15 PM CDT Gout pain Patient: JUAN J DUENAS Age: 81 years Sex: Female : 1935 Author: OLIVIA SAUNDERS MD Attachments: None Associated Diagnosis: Gout Acute; Pain Ankle R; Erythema NOS Basic Information Time seen: Immediately upon arrival. History source: Patient, spouse. Arrival mode: Private vehicle, walking. History limitation: None. Additional information: Chief Complaint from Nursing Triage Note : Chief Complaint Description 11/04/2016 14:47 CDT Chief Complaint Description see triage 11/04/2016 14:41 CDT Chief Complaint Description Pt presents with c/o of gout pain and has reddened area over rigth ankle bone. Pt is able to wt bear onset yesterday when pt ran out of her medications . History of Present Illness CHIEF COMPLAINT: gout right foot/ankle HPI: Patient is a 81 yo female with significant PMHx of gout, hypercholesterolemia, hypertension, dementia, anxiety who presents for a atraumatic right ankle pain. Onset 3 days ago, progressive over night, localized to her right medial lateral ankle. Characterizedas 8/10 constant ache. Aggravated by weight-bearing and range of motion, although has been able to continue both. did go pickle cutter the colchicine which they used at the last flare 1.5 months ago with no issues, and took 2 pills at 0900 hours followed by 1 pill at 1000 hours. They were told not to take any more than 3 doses per flare. Have tried to ibuprofen yesterday and ice once with no alleviation. Patient denies any nausea, vomiting, and diarrhea today or at last flare on colchicine. Associated with joint redness. Symptoms are identical to approximately a dozen previous gout flares per patient and . No previous injury, focal weakness, numbness, tingling, fevers, chills, nausea, andvomiting. REVIEW OF SYSTEMS: Pertinent positive and negatives per HPI. All other systems were reviewed and are negative. PAST MEDICAL/SURGICAL HISTORY: Reviewed in EMR. Pertinent past medical history noted per HPI. MEDICATIONS/ALLERGIES: Reviewed in EMR and as per HPI, otherwise non-contributory to evaluation today. FAMILY HISTORY: Reviewed in EMR. Non-contributory to evaluation today. SOCIAL HISTORY: Lives with . Per nursing notes, otherwise non-contributory to evaluation today. Review of Systems Additional review of systems information: All other systems reviewed and otherwise negative. Health Status Allergies: Allergic Reactions (Selected) Severity Not Documented Lisinopril- No reactions were documented.. Past Medical/ Family/ Social History Medical history: Active Hypertension (401.9): Onset in 1990 at 55 years. Resolved Tick Bite (919.4): Onset on 05/25/2011 at 76 years. Resolved.. Surgical history: Echocardiogram ([id number]) on 06/01/2015 at 80 Years. Colonoscopy ([id number]) on 08/28/2013 at 78 Years. Echocardiogram ([id number]) on 06/06/2013 at 78 Years. Colonoscopy ([id number]) on 11/08/2006 at 71 Years. Comments: 01/28/2011 08:40 - GINNA TEJADA MD, Dr in [place] One sessile polyp recommended repeat in 5 years [facility] COLONOSCOPY W SNARE REMOVAL TUMOR/POLYP/LESION - 11/08/06 on 11/08/2006 at 71 Years. Hysterectomy ([id number]) in 1975 at 41 Years. C TOTAL ABDOM HYSTERECTOMY - 1970's - Hysterectomy, Total Abdominal (bleeding) - benign on .. Family history: Diabetes mellitus Mother () Hypertension Mother () Father () Son Alzheimer's disease Father () . Physical Examination Vital Signs: Vital Signs 11/04/2016 14:41 CDT Temperature Core 37 DegC Peripheral Pulse Rate 72 /min Respiratory Rate 18 /min SpO2 97 % Systolic Blood Pressure 136 mmHg Diastolic Blood Pressure 46 mmHg <LLOW Mean Arterial Pressure 76 mmHg , Measurements 11/04/2016 14:41 CDT Dosing Weight 57.00 kg Actual Weight 57 kg Weight Source Standing scale , SpO2 11/04/2016 14:41 CDT SpO2 97 % . PERTINENT EXAM FINDINGS: - Vitals: reviewed - General: well-appearing, NAD, nontoxic - HEENT: NCAT - Neck: supple - Cardiovascular: RRR, No M/R/G, normal perfusion - Respiratory: CTAB, symmetric expansion, normal work of breathing, speaking in full sentences - Abdomen: soft, non-distended, non-tender, no rebound or guarding - Skin: closed, focal edema and faint focal erythema and associated warmth of right medial & lateral malleoli, no abrasion, no laceration, no crepitus, dry, cap refill 1 sec - Extremities: diffuse tenderness of right ankle with mild pain to right ankle ROM, soft compartments, motor strength 5/5, sensation to light touch intact, DP pulse 2+, otherwise full ROM of RLE with no significant pain, no cyanosis - Neuro: awake, alert, normal speech, GCS 15, CN 2-12 grossly intact, no focal motor or sensory deficits - Psych: cooperative, interactive Medical Decision Making Documents reviewed:Emergency department nurses' notes, prior records. Notes:I/R/P: 81 yo female with significant PMHx of gout with last flare mid-September s/p colchicine, hypercholesterolemia, hypertension, dementia, and anxiety presents well appearing, afebrile and hemodynamically normal with 3 days of right ankle pain, warmth & erythema- identical to previous gout flares s/p 1.8 mg of colchicine this morning. Exam and history consistent with gout. Neurovascularly intact RLE. No signs or symptoms of septic arthritis, fracture, compartment syndrome, arterial or vascular compromise. Provided pain management with IM Toradol, ice packs, and given she has not responded to colchicine,initiated prednisone 40 mg x 5 days- but given 2 flares in 1.5 months, on diuretics, may need longerduration. Coordinating PCP f/u in 5 days for re-evaluation. Re-evaluation: Patient has crutches at home if needed, but continuing to ambulate with slight antalgic gait at her preference. Will follow-up with PCP as arranged next week. Recommend symptomatic caresincluding ibuprofen as tolerated until follow-up and return for any new or worsening symptoms. DISPOSITION: home - Recommendations: ice, ibuprofen 400 mg q6h as tolerated - Prescriptions: prednisone 40 mg x 4 more days - Follow-up: with PCP on Monday or return to ED for new or worsening symptoms The patient/family expresses understanding, agrees with this plan, and has had all questions answered.. Impression and Plan Diagnosis Gout Acute (Discharge, Emergency medicine, Medical) Pain Ankle R (Discharge, Emergency medicine, Medical) Erythema NOS (Discharge, Emergency medicine, Medical) Plan Condition: Improved, Stable. Disposition: Medically cleared, Discharged: to home. Prescriptions: Prescription [facility]: predniSONE 20 mg oral tablet (Prescribe): 40 mg, 2 tab(s), PO, Daily, for 4 day(s), 40 mg (2 pills) due every day around noon. Next dose due 11/05 at noon., 8 tab(s), 0 Refill(s), Prescription [facility]: ibuprofen 200 mg oral tablet (Prescribe): 400 mg, 2 tab(s), PO, q6hr, for 7 day(s), Take with food.,PRN: ankle pain, 56 tab(s), 0 Refill(s). Patient was given the following educational materials: GOUTY ARTHRITIS. Limitations: Limited activity. Follow up with: MAGO FELICIANO Within 3 - 5 days for re-evaluation, and possibly longer steroid use for gout.. Counseled: Patient, Family, Discussed results and plan with patient in detail and they expressed understanding and agreement.. Electronically Signed By: OLIVIA SAUNDERS MD On: 11/04/2016 03:36 PM Source: [employer] Document Id: [id number]} Carlos Eduardo Stockton R.N. 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 unknown date of dx 12/06/2011 10:38 - HUBER CORRALES DNP, 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 test Dementia (Major Neurocognitive Disorder) NOS (ICD-10-CM :F03.90 ) Name of Problem: Dementia (Major Neurocognitive Disorder) NOS ; Recorder: MAGO HUNG MD; Confirmation: Confirmed ; Classification: Medical ; Code: F03.90 ; Contributor System: PowerChart ; Last Updated: 03/03/2015 13:06 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 ; 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 ; Life [...] Classification: Medical ; Code: 401.9 ; Contributor System:[employer] ; Last Updated: 10/18/2011 11:58 CDT ; Life Cycle Date: 11/09/2010 ; Life Cycle Status: Active ; Responsible Provider: MAY DAVIDSON LPN; Vocabulary: ICD-9-CM Pure Hypercholesterolemia (ICD-9-CM :272.0 ) Name of Problem: Pure Hypercholesterolemia ; Onset Date: 11/13/2001 ; Confirmation: Confirmed ; Classification: Medical ; Code: 272.0 ; Contributor System: [facility]_HX_[facility]_UPLOAD ; Last Updated: 06/01/2013 18:11 CDT ; Life Cycle Status: Active ; Vocabulary: ICD-9-CM ; Comments: - Pure hypercholesterolemia Diagnoses(Active) Gout pain Date: 11/04/2016 ; Diagnosis Type: Reason For Visit ; Confirmation: Complaint of ; Clinical Dx: Gout pain ; Classification: Medical ; Clinical Service: Emergency medicine ; Code: PNED ; Probability: 0 ; Diagnosis Code: [id number] Triage Chief Complaint Description : see triage Mode of Arrival ED : Private vehicle Track : Medical Languages : Tongan Treatments Prior to Arrival : None Is Patient Female and 13-50 no hysterectomy : No CARLOS EDUARDO STOCKTON RN - 11/04/2016 14:47 CDT Pain Assessment Pain Symptoms : Yes CARLOS EDUADRO STOCKTON RN - 11/04/2016 14:47 CDT Pain Scale Pain Scale Verbal 0-10 : Open CARLOS EDUARDO STOCKTON RN - 11/04/2016 14:47 CDT Pain Pain Assessment Grid Pain 1 Location : Ankle Laterality : Right Intensity : 8 CARLOS EDUARDO STOCKTON RN - 11/04/2016 14:47 CDT Comfort Measures Comfort Measures Grid [place] Application : Yes CARLOS EDUARDO STOCKTON RN - 11/04/2016 14:47 CDT ED Physician Notification Time ED Physician Notification Time : 11/04/2016 14:44 CDT CARLOS EDUARDO STOCKTON RN - 11/04/2016 14:47 CDT QUIN DCP GENERIC CODE Tracking Acuity : 3 -Urgent Tracking Group : [facility] ED CARLOS EDUARDO STOCKTON RN - 11/04/2016 14:47 CDT Allergy (As Of: 11/04/2016 14:48:56 CDT) Allergies (Active) lisinopril Estimated Onset Date: Unspecified ; Comments: Comment 1: Tickle in throat x 3 weeks with no other reason ; Created By: JAX DANIEL MD; Reaction Status: Active ; Category: Drug ; Substance: lisinopril ; Type: Allergy ; Updated By: JAX DANIEL MD; Reviewed Date: 09/20/2016 13:39CDT ID Screen Drug Resistant Organism : No Travel Within Last 21 Days : No CARLOS EDUARDO STOCKTON RN - 11/04/2016 14:47 CDT Respiratory Airway : Patent Respirations : Unlabored Respiratory Pattern : Regular CARLOS EDUARDO STOCKOTN RN - 11/04/2016 14:47 CDT Cardiovascular Heart Rhythm : Regular Skin Color : Normal for ethnicity Skin Description : Dry Skin Temperature : Warm CARLOS EDUARDO STOCKTON RN - 11/04/2016 14:47 CDT Neurological Last Well Time Known : Not applicable Level of Consciousness : Alert Orientation : Oriented x 3 Characteristics of Speech : Appropriate for age CARLOS EDUARDO STOCKTON RN - 11/04/2016 14:47 CDT ED Psychosocial Affect/Behavior : Calm Domestic Abuse Concerns : None Behavioral Health Screen/Safety Assmt : No Emotional Support Available : Yes CARLOS EDUARDO STOCKTON RN - 11/04/2016 14:47 CDT Gastrointestinal Nutrition ED : Adequate CARLOS EDUARDO STOCKTON RN - 11/04/2016 14:47 CDT Musculoskeletal Fall Prevention Education Provided : Yes Standard Safety : Bed in low position, Call device within reach, ID band check CARLOS EDUARDO STOCKTON RN - 11/04/2016 14:47 CDT Social Habits Exposure to Tobacco Smoke : Care provider denies smoking in home, Other: never Smoking Status : Never smoker Tobacco 2A : No Tobacco Use/Currently Using : No Tobacco Use/Last 30 Days : No Tobacco Use/Last 12 months : No CARLOS EDUARDO STOCKTON RN - 11/04/2016 14:47 CDT Alcohol Use Grid Alcohol Use : No CARLOS EDUARDO STOCKTON RN - 11/04/2016 14:47 CDT Recreational Drug Use Grid Drug Use : None CARLOS EDUARDO STOCKTON RN - 11/04/2016 14:47 CDT Source: [facility] [employer] Document Id: [id number] CDT!67 Carlos Eduardo [place] R.N. 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 ; Life Cycle Status: Active ; Vocabulary: ICD-10-CM Aortic insufficiency (ICD-9-CM :424.1 ) Name of Problem: Aortic insufficiency ; Onset Date: 10/20/2011 ; Recorder: BATSHEVA NEWBY RN; Confirmation: Confirmed ; Classification: Nursing ; Code: 424.1; Contributor System: [employer] ; Last Updated: 12/06/2011 10:38 CDT ; Life Cycle Date: 11/01/2011 ; Life Cycle Status: Active ; Responsible Provider: BATSHEVA NEWBY RN; Vocabulary: ICD-9-CM ; Comments: 12/06/2011 8:34 - RUBENS AGUILAR LPN unknown date of dx 12/06/2011 10:38 - HUBER CORRALES DNP, 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 test Dementia (Major Neurocognitive Disorder) NOS (ICD-10-CM :F03.90 ) Name of Problem: Dementia (Major Neurocognitive Disorder) NOS ; Recorder: MAGO HUNG MD; Confirmation: Confirmed ; Classification: Medical ; Code: F03.90 ; Contributor System: [employer] ; Last Updated: 03/03/2015 13:06 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 ; 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 ; Life [...] Classification: Medical ; Code: 401.9 ; Contributor System:[employer] ; Last Updated: 10/18/2011 11:58 CDT ; Life Cycle Date: 11/09/2010 ; Life Cycle Status: Active ; Responsible Provider: MAY DAVIDSON LPN; Vocabulary: ICD-9-CM Pure Hypercholesterolemia (ICD-9-CM :272.0 ) Name of Problem: Pure Hypercholesterolemia ; Onset Date: 11/13/2001 ; Confirmation: Confirmed ; Classification: Medical ; Code: 272.0 ; Contributor System: [facility] ; Last Updated: 06/01/2013 18:11 CDT ; Life Cycle Status: Active ; Vocabulary: ICD-9-CM ; Comments: - Pure hypercholesterolemia Diagnoses(Active) Gout pain Date: 11/04/2016 ; Diagnosis Type: Reason For Visit ; Confirmation: Complaint of ; Clinical Dx: Gout pain ; Classification: Medical ; Clinical Service: Emergency medicine ; Code: PNED ; Probability: 0 ; Diagnosis Code: [id number] Triage Chief Complaint Description : Pt presents with c/o of gout pain and has reddened area over rigth ankle bone. Pt is able to wt bear onset yesterday when pt ran out of her medications Information Given By : Patient Present in Room During Exam/Procedure : Alone Mode of Arrival ED : Private vehicle Track : Medical Languages : Tongan Vital Signs Assessed : Yes Treatments Prior to Arrival : None Is Patient Female and 13-50 no hysterectomy : No CARLOS EDUARDO STOCKTON RN - 11/04/2016 14:41 CDT Vital Signs Temperature Core : 37 DegC(Converted to: 98.6 DegF) Peripheral Pulse Rate : 72 /min Respiratory Rate : 18 /min Systolic Blood Pressure : 136 mmHg Diastolic Blood Pressure : 46 mmHg (<LLOW) NIBP Mean : 76 mmHg SpO2 : 97 % Oxygen Therapy : Room air Actual Weight : 57 kg Actual Weight Conversion to Pounds : 125.4 lb Weight Source : Standing scale CARLOS EDUARDO STOCKTON RN - 11/04/2016 14:41 CDT Pain Assessment Pain Symptoms : Yes CARLOS EDUARDO STOCKTON RN - 11/04/2016 14:41 CDT Pain Scale Pain Scale Verbal 0-10 : Open CARLOS EDUARDO STOCKTON RN - 11/04/2016 14:41 CDT Pain Pain Assessment Grid Pain 1 Location : Ankle Laterality : Right Intensity : 8 CARLOS EDUARDO STOCKTON RN - 11/04/2016 14:41 CDT Comfort Measures Comfort Measures Grid [place] Application : Yes CARLOS EDUARDO STOCKTON RN - 11/04/2016 14:41 CDT ED Physician Notification Time ED Physician Notification Time : 11/04/2016 14:44 CDT CARLOS EDUARDO STOCKTON RN - 11/04/2016 14:41 CDT QUIN QIUN Level 1 : No QUIN Level 2 : No QUIN Level 3 : Many Vital Signs QUIN : No CARLOS EDUARDO STOCKTON RN - 11/04/2016 14:41 CDT DCP GENERIC CODE Tracking Acuity : 3 -Urgent Tracking Group : [facility] ED CARLOS EDUARDO STOCKTON RN - 11/04/2016 14:41 CDT Allergy (As Of: 11/04/2016 14:47:34 CDT) Allergies (Active) lisinopril Estimated Onset Date: Unspecified ; Comments: Comment 1: Tickle in throat x 3 weeks with no other reason ; Created By: JAX DANIEL MD; Reaction Status: Active ; Category: Drug ; Substance: lisinopril ; Type: Allergy ; Updated By: JAX DANIEL MD; Reviewed Date: 09/20/2016 13:39CDT ID Screen Drug Resistant Organism : No Travel Within Last 21 Days : No Contact with someone with Ebola : No CARLOS EDUARDO STOCKTON RN - 11/04/2016 14:41 CDT Immunizations Immunizations Current : Yes Pneumovac : Last 5 years Influenza : This year CARLOS EDUARDO STOCKTON RN - 11/04/2016 14:41 CDT Source: [employer] Document Id: [id number] CDT!54 documented in this encounter Miscellaneous Notes Miscellaneous - Conversion, Historical Provider Ser - 11/04/2016 3:47 PM CDT Coding Summary-Paper Based CODING DATE: 11/12/2016 FINAL [place] [facility] STATUS: * Discharged to Home or Self Care PAYOR: Medicare ADMIT DX: M25.571 Pain in right ankle and joints of right foot REASON FOR VISIT DX: M25.571 Pain in right ankle and joints of right foot FINAL DX: PRINCIPAL: M10.9 Gout, unspecified SECONDARY: L53.9 Erythematous condition, unspecified I10 Essential (primary) hypertension E78.00 Pure hypercholesterolemia, unspecified Z88.8 Allergy status to other drugs, medicaments and biological substances status PROCEDURES DOCTOR NAME DATE NOTE: The code number assigned matches the documented diagnosis and / or procedure in the patient's chart. However, the narrative phrase printed from the coding software may appear abbreviated, or result in slightly different terminology. Coded By: GARDENIA ANDERSON Date Saved: 11/12/2016 01:01 pm Source: [employer] Document Id: [id number] Miscellaneous - Carlos Eduardo [place] R.N. - 11/04/2016 3:46 PM CDT Valuables/Belongings Valuables/Belongings Entered On: 11/04/2016 15:46 CDT Performed On: 11/04/2016 15:46 CDT by CARLOS EDUARDO STOCKTON RN Valuables/Belongings Home Medication Disposition : None brought in with patient CARLOS EDUARDO STOCKTON RN - 11/04/2016 15:46 CDT Source: [employer] Document Id: [id number] CDT!3 Miscellaneous - Carlos Eduardo [place] R.N. - 11/04/2016 2:34 PM CDT Facility Charge Ticket 2.0 11.0 DX Facility Charge Ticket 2.0 11.0 DX Entered On: 11/04/2016 15:47 CDT Performed On: 11/04/2016 14:34 CDT by CARLOS EDUARDO STOCKTON RN Facility Charge Ticket 2.0 11.0 DX ED Other Charges : Standard ED Encounter TVL Level Translated RTF : Gout pain TVL:3 TVL Level for Facility Charge Ticket : Level 3 Arrival Mode Calc : 1 Mode of Arrival ED : Private vehicle [place] Mode of Arrival Interpreted : Standard [place] Process Management : None [place] Order Management : None 30 Minutes Critical Care : No Nursing Notes RTF : Triage Forms ED Triage Assessment,11/04/16 14:41,CARLOS EDUARDO STOCKTON RN Nursing Notes ED Primary Assessment,11/04/16 14:47,CARLOS EDUAROD STOCKTON RN ED Pain Assessment,11/04/16 15:46,CARLOS EDUARDO STOCKTON RN [place] Nursing Assessment : Triage and 1-2 nursing assessments [place] Disposition : Discharge Disposition RTF : discharge [place] Total Points with Diagnosis Control : 5 [place]x Visit Level : 99308 Level 3 Treatments Prior to Arrival : None CARLOS EDUARDO STOCKTON RN - 11/04/2016 15:46 CDT Source: [employer] Document Id: [id number] CDT!18 documented in this encounter Plan of Treatment Not on filedocumented as of this encounter Visit Diagnoses Not on filedocumented in this encounter Care Teams Inspector Wreath Relationship Specialty Start Date End Date Mago Hung M.D. PCP - General 08/18/[address] [place] [phone] documented as of this encounter
--- OUTSIDE RECORDS SUMMARY | 2022-01-04 09:38 | XMS_ITS | Encounter Summary ---
:1935 Author Organization [facility] Address [address] [place] [address] Care Team Providers Name Role Phone Unavailable Primary Care Provider Unavailable Encounter Details Date Type Department Care Team Description 01/25/2016 Hospital Encounter HX [facility] Aleisha coyle M.D. [id number] [place] [phone] (Wo rk) Social History Tobacco Use Types Packs/Day Years Used Date Smoking Tobacco: Never Assessed Sex Assigned at Date Recorded Not on file documented as of this encounter Last Filed Vital Signs Vital Sign Reading Time Taken Comments Blood Pressure 157/41 01/25/2016 9:05 AM [employer] CE[employer]ACH[employer] Pulse 70 01/25/2016 9:05 AM [employer] AND CELL[employer] MACHINE Temperature - - Respiratory Rate 16 01/25/2016 9:05 AM [employer] AND CELLOPH[employer] MACHINE Oxygen Saturation - - Inhaled Oxygen Concentration [...] 0 1 01/21/2019 D3/MINERALS (CALCIUM-VITAMIN D ORAL) [id number]-epa-fish Take 1 capsule by 0 011 05/30/2018 oil 1,400 mg/5 mL liquid mouth daily. potassium chloride Take 1 tablet by 0 01/07/2016 02/06/2017 (for_KLOR-CON M) 10 mEq mouth 2 (two) times a ER tablet day. documented as of this encounter Miscellaneous Notes [place] - Jenae Bai L.P.N. - 01/25/2016 9:09 AM CST B/P Nurse only From: JENAE BAI LPN ([place] [facility] Nurse Ghanshy[place]) To: ALEISHA HUNG MD; Sent: 01/25/2016 09:09:21 [employer] Subject: B/P Nurse only Patient came in for a nurse only B/P she offers no concerns today reports taking all medications as ordered. . B/P 170/42 p 72 reg recheck per sitting was 157/41 P 70 reg. Please review and advise. Ghulam Marrero Source: [facility] [email or web address] Document Id: [id number] [place] - Jenae Bai L.PKaiN. - 01/25/2016 9:05 AM CST Ambulatory Vitals Height Weight Ambulatory Vitals Height Weight Entered On: 01/25/2016 9:06 [employer] AND CELL[employer] MACHINE Performed On: 01/25/2016 9:05 [employer] CELL[employer] MACHINE by JENAE BAI LPN Vitals/Ht/Wt Peripheral Pulse Rate : 70 /min Respiratory Rate : 16 /min Heart Rhythm : Regular Systolic Blood Pressure : 157 mmHg (HI) Diastolic Blood Pressure : 41 mmHg (<LLOW) NIBP Mean : 80 mmHg BP Location : Left upper extremity Blood Pressure Cuff Size : Regular JENAE BAI LPN - 01/25/2016 9:05 B[employer] AND CELL[employer] MACHINE Source: [facility] [email or web address] Document Id: [id number] BANDER 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 - 01/25/2016 8:54 AM CST Ambulatory Vitals Height Weight Ambulatory Vitals Height Weight Entered On: 01/25/2016 8:55 [employer] Performed On: 01/25/2016 8:54 [employer] AND CE[employer] MACHINE by JENAE BAI LPN Vitals/Ht/Wt Peripheral Pulse Rate : 72 /min Respiratory Rate : 16 /min Heart Rhythm : Regular Systolic Blood Pressure : 170 mmHg (>HHI) Diastolic Blood Pressure : 42 mmHg (<LLOW) NIBP Mean : 85 mmHg BP Location : Left upper extremity Blood Pressure Cuff Size : Regular JENAE BAI LPN - 01/25/2016 8:54 [employer] AND CE[employer] MACHINE Source: [employer] Document Id: [id number] 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
--- OUTSIDE RECORDS SUMMARY | 2022-01-04 09:38 | XMS_ITS | Encounter Summary ---
:1935 Author Organization [facility] Address [address] [place] [address] Care Team Providers Name Role Phone Unavailable Primary Care Provider Unavailable Encounter Details Date Type Department Care Team Description 06/01/2015 Hospital Encounter [facility] E[facility] Whit Singh M.D. [address] [place], [place] [phone] (Wo rk) Social History [...] 0 1 01/21/2019 D3/MINERALS (CALCIUM-VITAMIN D ORAL) [id number]-epa-fish Take 1 capsule by 0 011 05/30/2018 oil 1,400 mg/5 mL liquid mouth daily. documented as of this encounter Miscellaneous Notes Miscellaneous - Conversion, Historical Provider Ser - 06/01/2015 11:59 PM CDT Coding Summary-Paper Based CODING DATE: 06/04/2015 FINAL [place] [facility] STATUS: * Discharged to Home or Self Care PAYOR: Medicare ADMIT DX: REASON FOR VISIT DX: FINAL DX: PRINCIPAL: I35.1 Nonrheumatic aortic (valve) insufficiency SECONDARY: I35.8 Other nonrheumatic aortic valve disorders I51.7 Cardiomegaly I10 Essential (primary) hypertension PROCEDURES DOCTOR NAME DATE NOTE: The code number assigned matches the documented diagnosis and / or procedure in the patient's chart. However, the narrative phrase printed from the coding software may appear abbreviated, or result in slightly different terminology. Coded By: THERESA RODAS Date Saved: 06/04/2015 10:05 am Source: [employer] Document Id: [id number] documented in this encounter Plan of Treatment Not on filedocumented as of this encounter Visit Diagnoses Not on filedocumented in this encounter
--- OUTSIDE RECORDS SUMMARY | 2022-01-04 09:38 | XMS_ITS | Encounter Summary ---
:1935 Author Organization [facility] Address [address] [place] [address] Care Team Providers Name Role Phone Unavailable Primary Care Provider Unavailable Encounter Details Date Type Department Care Team Description 03/03/2015 Hospital Encounter HX [facility] Aleisha coyle M.D. [address] [phone] (Wo rk) Social History Tobacco Use Types Packs/Day Years Used Date Smoking Tobacco: Never Assessed Sex Assigned at Date Recorded Not on file documented as of this encounter Last Filed Vital Signs Vital Sign Reading Time Taken Comments Blood Pressure 168/46 03/03/2015 12:56 PM APPRENTICE ARCHITECT Pulse 56 03/03/2015 12:56 PM APPRENTICE ARCHITECT Temperature - - Respiratory Rate 20 03/03/2015 12:19 PM APPRENTICE ARCHITECT Oxygen Saturation - - Inhaled Oxygen Concentration - - Weight 57.1 kg (125 lb 14.1 oz) 03/03/2015 12:19 PM APPRENTICE ARCHITECT Height - - Body Mass Index 21.76 01/07/2015 9:00 AM APPRENTICE ARCHITECT documented in this encounter Medications at Time of Discharge Medication Sig Dispensed Refills Start Date End Date aspirin [address] tablet Take 1 tablet by 0 201401/21/2019 mouth daily. biotin 10,000 mcg Take by mouth daily. 0 08/26/19 15 05/30/2018 tablet,disintegrating CALCIUM CARB/VIT Take by mouth daily. 0 1 01/21/2019 D3/MINERALS (CALCIUM-VITAMIN D ORAL) [id number]-fish Take 1 capsule by 0 011 05/30/2018 oil 1,400 mg/5 mL liquid mouth daily. documented as of this encounter Progress Notes Aleisha Hermosillo M.D. - 03/03/2015 1:07 PM CST Clinic Full Note CHIEF COMPLAINT/REASON FOR VISIT Follow up. HISTORY OF PRESENT ILLNESS Janeth presents today for a followup on her medications. She reports that her back and leg pain are much better. They bothered her a little bit yesterday but since seeing a chiropractor it has not really been an issue. In regards to her blood pressure, they did check it for about 1 month after our last visit. Her systolic numbers were typically in the 140s to the lower 150s. They have not checked it over the past couple of weeks. She did take her medications today but reports she gets anxious when coming to the doctor and her blood pressure goes up. She notes no chest pain but an occasional funny feeling in her chest that does not occur often. No problems with her breathing or with edema. Mood hasbeen okay. Anxiety is also improved from what it was this fall. She still gets anxious when coming to the doctor. She has been on 10 mg of Aricept. She does not have any side effects with it. Memory does not seem to be a whole lot different. MEDICATIONS Aricept 10 mg oral tablet, 10 mg, 1 tab(s), memory- patient will call when needed, PO, Bedtime, 3 refills aspirin 81 mg oral tablet, 81 mg, 1 tab(s), PO, Daily atenolol 50 mg oral tablet, 50 mg, 1 tab(s), high blood pressure, PO, Daily, 3 refills Biotin Forte oral tablet, 10,000 mcg, PO, Daily Calcium 600+D, 1 tab, PO, Daily Fish Oil oral capsule, 1 cap(s), 1400 mg, PO, Daily K-Dur 10 oral tablet, extended release, 10 meq, 1 tab(s), PO, Daily, 0 refills Lasix 20 mg oral tablet, 20 mg, 1 tab(s), PO, Daily, 1 refills losartan 100 mg oral tablet, 100 mg, 1 tab(s), high blood pressure, PO, Daily, 3 refills Zoloft 50 mg oral tablet, 50 mg, 1 tab(s), anxiety, PO, Daily, 11 refills ALLERGIES lisinopril PAST MEDICAL HISTORY Chronic Anxiety NOS Dementia (Major Neurocognitive Disorder) NOS Gout NOS Hypertension Pure Hypercholesterolemia Historical Tick Bite PROCEDURES/SURGICAL HISTORY Colonoscopy (08/28/2013), Echocardiogram (06/06/2013), Colonoscopy (11/08/2006), HC COLONOSCOPY W SNARE REMOVAL TUMOR/POLYP/LESION - 11/08/06 (11/08/2006), Hysterectomy (1975), C TOTAL ABDOM HYSTERECTOMY - 1969's - Hysterectomy, Total Abdominal (bleeding) - benign (). SOCIAL HISTORY Date Time: 03/03/2015 12:19 Tobacco: Smoking Status: Never smoker Exposure: Care provider denies smoking in home, Other: never Alcohol: Use: Yes Recreational Drugs: Use: None Type: No Results Found FAMILY HISTORY Mother ( at 91 year(s)):Positive: Diabetes mellitus; Hypertension Father ( at 76 year(s)):Positive: Alzheimer's disease; Hypertension Brother: Negative: Son:Positive: Hypertension SYSTEMS REVIEW As per HPI. VITAL SIGNS T: 36.2 ??C (Core) HR: 56 RR: 20 BP: 168 / 46 SpO2: 99% WT: 57.1 kg PHYSICAL EXAMINATION General: Alert and oriented. No acute distress. Neck: Supple. No lymphadenopathy. Bilateral carotid bruits/radiated murmur. Cardiovascular exam: Regular rate and rhythm. Normal S1 and S2. Systolic murmur. Lungs: Clear to auscultation bilaterally. Extremities: No pedal edema. Psychiatric: Mood is described as a little anxious. Affect is flat and uncertain. Patient will answer questions but then look to her for confirmation. IMPRESSION/REPORT/PLAN 1. Hypertension HTN NOS Blood pressure is up today. She does get anxious when she comes to the doctor but numbers at home are also elevated. We are going to restart hydrochlorothiazide 12.5 mg daily. I believe this was stopped when the Lasix was added. She does not recall any problems with it. She will return in 1 to 2 weeks for a nurse visit blood pressure check. I will plan on seeing her back in 3 months or sooner as needed. Ordered: OV Est Pt Level 4 - 39399 - 25 min 2. Dementia (Major Neurocognitive Disorder) NOS Patient is tolerating Aricept at 10 mg daily. I did review the visit she had with occupational therapy earlier this fall. MoCA testing confirmed more than simply mild cognitive impairment. She scored 16 out of 30 on the MoCA. She went to therapy for 2 more visits but did not return after that. We will continue the Aricept. Ordered: OV Est Pt Level 4 - 11702 - 25 min 3. Anxiety NOS We are going to continue her Zoloft. She feels like overall things are stable. Ordered: OV Est Pt Level 4 - 52702 - 25 min Orders: hydrochlorothiazide, 12.5 mg = 1 tab(s), PO, Daily, high blood pressure, # 90 tab(s), 3 Refill(s), Maintenance, Pharmacy: [facility] Electronically Signed By: ALEISHA GOLDEN MD On: 03/03/2015 01:10 PM Source: [employer] Document Id: [id number] ENTICE ARCHITECT documented in this encounter Miscellaneous Notes Miscellaneous - Jenae Bai LKaiP.NKai - 03/03/2015 12:56 PM CST Ambulatory Vitals Height Weight Ambulatory Vitals Height Weight Entered On: 03/03/2015 12:57 APPRENTICE ARCHITECT Performed On: 03/03/2015 12:56 APPRENTICE ARCHITECT by JENAE BAI LPN Vitals/Ht/Wt Peripheral Pulse Rate : 56 /min (LOW) Systolic Blood Pressure : 168 mmHg (>HHI) Diastolic Blood Pressure : 46 mmHg (<LLOW) NIBP Mean : 87 mmHg BP Location : Left upper extremity Blood Pressure Cuff Size : Regular JENAE BAI LPN - 03/03/2015 12:56 APPRENTICE ARCHITECT Source: [employer] Document Id: [id number] APPRENTICE ARCHITECT!8 ENTICE ARCHITECT Miscellaneous - Aleisha Hermosillo M.D. - 03/03/2015 12:51 PM APPRENTICE ARCHITECT Ambulatory Patient Summary [address] [place] [id number] Visit Information Name: JANETH DUENAS [facility] Number: [id number] Current Date: 03/03/2015 12:51:57 Physicians Attending Provider: ALEISHA GOLDEN MD Primary Care Provider: ALEISHA GOLDEN MD JANETH DUENAS has been given the following list of [...] Oral, once a day high blood pressure New [facility] [address] [place] [address] losartan (losartan 100 mg oral tablet) 1 [...] the Following Medications: Medication list as of 03-03-15 12:51 Attention: If you have any medications at home that are not on this list, DO NOT take them until youcontact your provider for clarification. Give a copy of your medication list to your primary care provider. Update your medication list any time medications or doses are changed and carry your medication list at all times in case of emergency. Electronically Signed By: ALEIHSA GOLDEN MD Signed On:03-MAR-2015 12:51:44 Your Allergies & Intolerances Substance Reaction Symptoms Category Comments lisinopril Drug Tickle in throat x 3 weeks with no other reason Your Problem List Problem Status Onset Comments Hypertension Active 03/06/1990 Aortic insufficiency Active 10/20/2011 12/06/11 unknown date of dx; 12/06/11 stress test Gout NOS Active 11/26/2012 Pure Hypercholesterolemia Active 11/13/2001 06/01/13 Pure hypercholesterolemia Your Upcoming Appointments Date Time Location Provider [...] if you dont have one. Go to [email or web address] and click on Create Your Account. Then, follow the directions to complete the online form. Youll be asked for your [facility] number which you can find at the top of this document. Your Goals/Additional instructions: Source: [facility] POWERCHART Document Id: [id number] ENTICE ARCHITECT Miscellaneous - Aleisha Hermosillo M.D. - 03/03/2015 12:51 PM APPRENTICE ARCHITECT Ambulatory Discharge Medication List [address] [id number] Visit Information Name: JANETH DUENAS [facility] Number: [id number] Visit Date: 03/03/2015 12:51:56 Attending Provider: ALEISHA GOLDEN MD Primary Care Provider: ALEISHA GOLDEN MD JANETH DUENAS has been given the following list of [...] Oral, once a day high blood pressure New Routed to [address] [address] losartan (losartan 100 mg oral tablet) 1 [...] the Following Medications: Medication list as of 03-03-15 12:51 Attention: If you have any medications at [...] Electronically Signed By: ALEISHA GOLDEN MD Signed On:03-MAR-2015 12:51:44 Additional Information: Source: [facility] POWERCHART Document Id: [id number] ENTICE ARCHITECT Miscellaneous - Patricia Rubio LKaiP.N. - 03/03/2015 12:30 PM CST Ambulatory Vitals Height Weight Ambulatory Vitals Height Weight Entered On: 03/03/2015 12:37 APPRENTICE ARCHITECT Performed On: 03/03/2015 12:30 APPRENTICE ARCHITECT by PATRICIA RUBIO Vitals/Ht/Wt Systolic Blood Pressure : 194 mmHg (>HHI) Diastolic Blood Pressure : 64 mmHg NIBP Mean : 107 mmHg BP Location : Left upper extremity Blood Pressure Cuff Size : Regular PATRICIA RUBIO - 03/03/2015 12:30 APPRENTICE ARCHITECT Source: [facility] [employer] Document Id: [id number] APPRENTICE ARCHITECT!7 ENTICE ARCHITECT Miscellaneous - Se Dalal L.P.N. - 03/03/2015 12:19 PM CST Adult Water Systems Designer Intake/History Adult Water Systems Designer Intake/History Entered On: 03/03/2015 12:23 APPRENTICE ARCHITECT Performed On: 03/03/2015 12:19 APPRENTICE ARCHITECT by SE DALAL LPN Intake Chief Complaint : Follow up. Temperature Core : 36.2 DegC(Converted to: 97.2 DegF) (LOW) Peripheral Pulse Rate : 61 /min Respiratory Rate : 20 /min Systolic Blood Pressure : 192 mmHg (>HHI) Diastolic Blood Pressure : 50 mmHg (LOW) NIBP Mean : 97 mmHg BP Location : Left upper extremity Blood Pressure Cuff Size : Regular SpO2 : 99 % Oxygen Therapy : Room air Actual Weight : 57.1 kg(Converted to: 125 lb 14 oz) Weight Source : Standing scale Dosing Weight Clinic : 57.1 kg SE DALAL LPN - 03/03/2015 12:19 APPRENTICE ARCHITECT General Info Information Given By : Patient Preferred Communication Mode : Verbal Languages : Bengali Is Patient Female and 13-50 no hysterectomy : No SE DALAL LPN - 03/03/2015 12:19 APPRENTICE ARCHITECT Subjective Pain Symptoms : No SE DALAL LPN - 03/03/2015 12:19 APPRENTICE ARCHITECT Dependent Habits Exposure to Tobacco Smoke : Care provider denies smoking in home, Other: never Smoking Status : Never smoker Tobacco 2A : No Tobacco Use/Currently Using : No Tobacco Use/Last 30 Days : No Tobacco Use/Last 12 months : No Alcohol Use : Yes SE DALAL LPN - 03/03/2015 12:19 APPRENTICE ARCHITECT Caffeine Use Grid Caffeine Use : Current Type : Coffee Frequency : Daily SE DALAL LPN - 03/03/2015 12:19 APPRENTICE ARCHITECT Recreational Drug Use Grid Drug Use : None SE DALAL LPN - 03/03/2015 12:19 APPRENTICE ARCHITECT Source: [facility] [employer] Document Id: [id number] APPRENTICE ARCHITECT!39 ENTICE ARCHITECT documented in this encounter Plan of Treatment Not on filedocumented as of this encounter Visit Diagnoses Not on filedocumented in this encounter
--- OUTSIDE RECORDS SUMMARY | 2022-01-04 09:38 | XMS_ITS | Encounter Summary ---
:1935 Author Organization [facility] Address [address] [place] [address] Care Team Providers Name Role Phone Unavailable Primary Care Provider Unavailable Encounter Details Date Type Department Care Team Description 06/18/2015 Hospital Encounter HX [facility] Whit Singh M.D. [address] [place] [address] (Wo rk) Social History Tobacco Use Types Packs/Day Years Used Date Smoking Tobacco: Never Assessed Sex Assigned at Date Recorded Not on file documented as of this encounter Last Filed Vital Signs Vital Sign Reading Time Taken Comments Blood Pressure 138/64 06/18/2015 8:27 AM CDT Pulse 68 06/18/2015 8:27 AM CDT Temperature - - Respiratory Rate - - [...] 0 1 01/21/2019 D3/MINERALS (CALCIUM-VITAMIN D ORAL) [id number]-epa-fish Take 1 capsule by 0 011 05/30/2018 oil 1,400 mg/5 mL liquid mouth daily. documented as of this encounter Nursing Notes Batsheva Newby R.N. - 09/29/2015 10:37 AM CDT BP Patient has not returned for repeat BP check as requested by Dr. Singh. Message left. Electronically Signed By: BATSHEVA NEWBY RN On: 09/29/2015 10:37 AM Modified by and Electronically Signed by: BATSHEVA NEWBY RN On: 09/29/2015 10:37 AM Source: [facility] [employer] Document Id: [id number] documented in this encounter Miscellaneous Notes Miscellaneous - Batsheva Newby R.N. - 10/08/2015 1:06 PM CDT Provider Letter October 08, 2015 JANETH RANGEL [address] [facility] [phone] Dear JANETH RANGEL, Dr. Singh would like you to come in for a blood pressure/pulse check. Please call [phone] to schedule a nurse visit. Sincerely, BATSHEVA NEWBY Electronic Signature Electronically Signed By: BATSHEVA NEWBY RN On: October 08, 2015 This document has images extracted. Source: [facility] [employer] Document Id: [id number] Miscellaneous - Fawad Lane - 07/01/2015 1:39 PM CDT Med Management Document Contains Addenda Addendum by ALEX JONES on July 01, 2015 18:50:12 CDT noted Addendum by MAGO GOLDEN MD on July 01, 2015 14:00:38 CDT From: MAGO GOLDEN MD Sent: 07/01/2015 14:00:37 CDT Subject: RE:Med Management Approved Order:potassium chloride (K-Dur 10 oral tablet, extended release) 1 tab(s) PO Daily Qty: 30 tab(s) Refills: 1 Substitutions Allowed Route To Pharmacy - [facility] Signed by MAGO GOLDEN MD 07/01/2015 14:00:32 From: FAWAD LNAE ([facility] Nurse Ghanshyam) To: MAGO GOLDEN MD; FAWAD LANE; Sent: 07/01/2015 13:39:32 CDT Subject: Med Management On hold pending signature Order:potassium chloride (K-Dur 10 oral tablet, extended release) 1 tab(s) PO Daily Qty: 30 tab(s) Refills: 1 Substitutions Allowed Route To Pharmacy - [facility] 06/01/15 03/03/15 Source: [employer] Document Id: [id number] Miscellaneous - Batsheva Newby RKaiN. - 06/18/2015 8:30 AM CDT *General Message From: BATSHEVA NEWBY RN To: BATSHEVA NEWBY RN; Sent: 06/18/2015 08:30:52 CDT Subject: *General Message Hi Janeth Murillo came in for a couple of blood pressure readings. They were: 06/08 = 138/68-62 06/1784=784/64-68 Ghulam Medina Source: [employer] Document Id: [id number] documented in this encounter Plan of Treatment Not on filedocumented as of this encounter Visit Diagnoses Not on filedocumented in this encounter
--- OUTSIDE RECORDS SUMMARY | 2022-01-04 09:38 | XMS_ITS | Encounter Summary ---
:1935 Author Organization [facility] Address [address] [place] [address] Care Team Providers Name Role Phone Unavailable Primary Care Provider Unavailable Encounter Details Date Type Department Care Team Description 03/24/2016 Hospital Encounter HX [facility] Whit Frankel M.D. [address] [place], [place] [phone] (Wo rk) Social History [...] 02/0406/07/2017 mg 24 hr capsule mouth daily. pqdky-5e-zkv-epa-fish oil Take 1 capsule by 0 08/201005/30/2018 1,400 mg/5 mL liquid mouth daily. potassium chloride Take 1 tablet by 0 01/07/2016 02/06/2017 (for_KLOR-CON M) 10 mEq ER mouth 2 (two) times tablet a day. documented as of this encounter Miscellaneous Notes Miscellaneous - Conversion, Historical Provider Ser - 03/24/2016 11:59 PM MOCK UP ASSEMBLER Coding Summary-Paper Based CODING DATE: 03/30/2016 FINAL [place] [facility] STATUS: * Discharged to Home or Self Care PAYOR: Medicare ADMIT DX: REASON FOR VISIT DX: FINAL DX: PRINCIPAL: I35.1 Nonrheumatic aortic (valve) insufficiency SECONDARY: I51.7 Cardiomegaly I10 Essential (primary) hypertension PROCEDURES DOCTOR NAME DATE NOTE: The code number assigned matches the documented diagnosis and / or procedure in the patient's chart. However, the narrative phrase printed from the coding software may appear abbreviated, or result in slightly different terminology. Coded By: THERESA RODAS Date Saved: 03/30/2016 01:17 pm [facility] POWERCHART Document Id: [id number] documented in this encounter Plan of Treatment Not on filedocumented as of this encounter Visit Diagnoses Not on filedocumented in this encounter
--- OUTSIDE RECORDS SUMMARY | 2022-01-04 09:38 | XMS_ITS | Encounter Summary ---
:1935 Author Organization [facility] Address [address] [place] [address] Care Team Providers Name Role Phone Unavailable Primary Care Provider Unavailable Encounter Details Date Type Department Care Team Description 06/04/2015 Hospital Encounter HX [facility] CARDIOLOG Whit Moyer M.D. [address] [place] [address] (Wo rk) Social History Tobacco Use Types Packs/Day Years Used Date Smoking Tobacco: Never Assessed Sex Assigned at Date Recorded Not on file documented as of this encounter Last Filed Vital Signs Vital Sign Reading Time Taken Comments Blood Pressure 152/74 06/04/2015 11:49 AM CDT Pulse 76 06/04/2015 11:33 AM CDT Temperature - - Respiratory Rate - - Oxygen Saturation - - Inhaled Oxygen Concentration - - Weight 60.4 kg (133 lb 2.5 oz) 06/04/2015 11:33 AM CDT Height 157 cm (5' 1.81) 06/04/2015 11:49 AM CDT Body Mass Index 24.5 06/04/2015 11:33 AM CDT documented in this encounter Medications at Time of Discharge Medication Sig Dispensed Refills Start Date End Date aspirin [address] tablet Take 1 tablet by 0 201401/21/2019 mouth daily. biotin 10,000 mcg Take by mouth daily. 0 08/26/19 15 05/30/2018 tablet,disintegrating CALCIUM CARB/VIT Take by mouth daily. 0 1 01/21/2019 D3/MINERALS (CALCIUM-VITAMIN D ORAL) mmliu-0r-bpw-epa-fish Take 1 capsule by 0 011 05/30/2018 oil 1,400 mg/5 mL liquid mouth daily. documented as of this encounter Consult Notes Pinky Moyer M.D. - 06/04/2015 11:27 AM CDT ANGELICA I am seeing Mrs Duenas back in followup for aortic regurgitation. Mrs. Duenas is a 80-year-old female. On an exercise echo in 2011 she was found to have at least moderate aortic regurgitation. She has a history of hyperlipidemia. She does no regular exercise but denies any history of chest discomfort or shortness of breath with any of her usual activities. She is quite active around the house doinghousework, vacuuming and shopping. She has had no palpitations or swelling. She has had a history ofhypertension, which she thinks overall has probably been better. She was seen in the emergency room for chest discomfort in December which was a constant somewhat worsening pain. CT was unremarkable except has some pulmonary nodules. They had restarted her hydrochlorothiazide earlier. She had been on lisinopril but this was discontinued in September and she was started on losartan. She developed some throat irritation felt to be likely related to the lisinopril. MEDICATIONS Atenolol 50 mg a day. Hydrochlorothiazide 12.5 mg a day. Lasix 20 mg a day. Losartan 100 mg a day. She currently had an echocardiogram which showed EF of 55, again aortic regurgitation which was feltto be pybhriyu-rt-gtpekn, mhaz-vt-fuyvzxnp left ventricular enlargement with an end-diastolic dimension of 59 which has increased just slightly and no major change since August of 2014. PHYSICAL EXAMINATION LUNGS: Clear. CARDIAC: Normal jugular venous pressure. Carotids with brisk upstroke, somewhat delayed at peak. There is a referred murmur or bruit into the carotids. No parasternal lift. PMI is in the anterior axillary line. S1, S2 with a 1 to 2/6 systolic ejection murmur and a long grade 2/6 diastolic murmur of aortic insufficiency at the left sternal border and apex. ABDOMEN: Soft, nontender. Femoral pulses are brisk. No bruits. EXTREMITIES: Normal pedal pulses. No edema. IMPRESSION/REPORT/PLAN Overall Mrs. Duenas seems to be doing well. She has had no current symptoms. Her blood pressure wasa bit high on my examination today. Her pulse was 70 and regular and blood pressure 162/60. I did notice when she had her echocardiogram her blood pressure was recorded at 125/60. We will just have hercome in for a couple of blood pressure checks to see if those are satisfactory. If remain high perhaps change HCTD to clorthalidone at 25 mg a day. Otherwise we will plan on seeing her back in 9 monthsto a year. It was a pleasure seeing Mrs. Duenas. Whit oMyer M.D./dayanna Electronically Signed By: Pinky MOYER MD On: 06/05/2015 11:03 AM Modified by and Electronically Signed by: Pinky MOYER MD On: 06/05/2015 11:03 AM Source: [facility] MHSDOLBEYNONRADSYS Document Id: [id number] documented in this encounter Miscellaneous Notes Miscellaneous - Batsheva Newby RScott. 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 Intake/History Entered On: 06/04/2015 11:35 CDT Performed On: 06/04/2015 11:33 CDT by BATSHEVA NEWBY RN Intake Chief Complaint : Here for follow-up and to review echo Onset of Symptoms : No chest pain, SOB or edema Peripheral Pulse Rate : 76 /min Heart Rhythm : Regular Systolic Blood Pressure : 172 mmHg (>HHI) Diastolic Blood Pressure : 74 mmHg NIBP Mean : 107 mmHg BP Location : Left upper extremity Blood Pressure Cuff Size : Regular Height : 157 cm(Converted to: 5 ft 2 inch(es), 62 inch(es)) Actual Weight : 60.4 kg(Converted to: 133 lb 3 oz) Dosing Weight Clinic : 60.4 kg Clinic BSA : 1.62 Body Mass Index : 24.5 kg/m2 BATSHEVA NEWBY RN - 06/04/2015 11:33 CDT General Info Information Given By : Spouse Preferred Communication Mode : Verbal Languages : Syriac Is Patient Female and 13-50 no hysterectomy : No BATSHEVA NEWBY RN - 06/04/2015 11:33 CDT Subjective Pain Symptoms : No BATSHEVA NEWBY RN - 06/04/2015 11:33 CDT Dependent Habits Exposure to Tobacco Smoke : Care provider denies smoking in home, Other: never Smoking Status : Never smoker Tobacco 2A : No Tobacco Use/Currently Using : No Tobacco Use/Last 30 Days : No Tobacco Use/Last 12 months : No Alcohol Use : Yes BATSHEVA NEWBY RN - 06/04/2015 11:33 CDT Caffeine Use Grid Caffeine Use : Current Type : Coffee Frequency : Daily Amount : 2 BATSHEVA NEWBY RN - 06/04/2015 11:33 CDT Recreational Drug Use Grid Drug Use : None BATSHEVA NEWBY RN - 06/04/2015 11:33 CDT Source: [facility] [employer] Document Id: [id number] CDT!40 documented in this encounter Plan of Treatment Not on filedocumented as of this encounter Procedures Procedure Name Priority Date/Time Associated Comments Diagnosis SODIUM, S/P Routine 06/04/2015 12:21 PM Results for this CDT procedure are i n the results section. POTASSIUM, S/P Routine 06/04/2015 12:21 PM Result s for this CDT procedure are i n the results section. CREATININE WITH Routine 06/04/2015 12:21 PM Resul ts for this EGFR, S/P CDT procedure are i n the results section. documented in this encounter Results Sodium (06/04/2015 12:21 PM CDT) athologist Signature Sodium, S 138.1 135.0 - POWERCHART 145.0 MML Specimen (Source) Anatomical Collection Method Collection Time Re ceived Time Location / / Volume Laterality Blood 06/04/2015 12:21 PM CDT Whit Moyer M.D. LAB BLOOD ADD-ON Performing Organization Address City/State/ZIP Code Phon e Number POWERCHART Potassium (06/04/2015 12:21 PM CDT) P athologist Signature Potassium, S 3.6 3.6 - 4.8 POWERCHART MMOLL Specimen (Source) Anatomical Collection Method Collection Time Re ceived Time Location / / Volume Laterality Blood 06/04/2015 12:21 PM CDT Whit Moyer M.D. LAB BLOOD ADD-ON Performing Organization Address City/State/ZIP Code Phon e Number POWERCHART (ABNORMAL) Creatinine with eGFR (06/04/2015 12:21 PM CDT) P athologist Signature Creatinine 1.18 0.60 - POWERCHART 1.30 MGDL HXeGFR (MDRD) 44 (L) >=60 POWERCHART [id number] eGFR 54 (L) >=60 POWERCHART Black/ [id number] [place] Specimen (Source) Anatomical Collection Method Collection Time Re ceived Time Location / / Volume Laterality Blood 06/04/2015 12:21 PM CDT Whit Moyer M.D. LAB BLOOD ADD-ON Performing Organization Address City/State/ZIP Code Phon e Number POWERCHART documented in this encounter Visit Diagnoses Not on filedocumented in this encounter
--- OUTSIDE RECORDS SUMMARY | 2022-01-04 09:38 | XMS_ITS | Encounter Summary ---
:1935 Author Organization [facility] Address [address] [place] [address] Care Team Providers Name Role Phone Unavailable Primary Care Provider Unavailable Encounter Details Date Type Department Care Team Description 07/12/2016 Hospital Encounter HX [facility] Aleisha Hung M.D. [address] [place] [phone] (Wo rk) Social History Tobacco Use [...] 02/0406/07/2017 mg 24 hr capsule mouth daily. iixqi-7m-bbu-epa-fish oil Take 1 capsule by 0 08/201005/30/2018 1,400 mg/5 mL liquid mouth daily. potassium chloride Take 1 tablet by 0 01/07/2016 02/06/2017 (for_KLOR-CON M) 10 mEq ER mouth 2 (two) times tablet a day. documented as of this encounter Miscellaneous Notes Miscellaneous - Aleisha Hung M.D. - 07/19/2016 8:15 PM CDT Normal Results Letter July 19, 2016 JANETH RANGEL [address] [facility] [place] [phone] Dear JANETH RANGEL, I am pleased to report that your results from the following diagnostic test(s) are unremarkable. Your triglycerides are up a tiny bit which is not worrisome. We will continue your current medications. Please follow up with us as we discussed during your visit or sooner if you have any concerns. If youhave questions or concerns, please do not hesitate to call our office. Would you like to see your lab results quickly? If you have an e-mail account, join the other [phone],000 [facility] patients who use the Patient Online Services to conveniently access their lab results by calling [phone] to sign up for an account. It just takes a few minutes! Result Name Current Result Normal Range Cholesterol (mg/dL) 189 07/12/2016 - <=199 Trig (mg/dL) (H) 151 07/12/2016 - <=149 HDL (mg/dL) 53 07/12/2016 >=50 - LDL Calculated (mg/dL) 106 07/12/2016 - <=129 Chol/HDL Ratio 4 07/12/2016 Sincerely, ALEISHA FELICIANO [address] [place] [address] Electronic Signature Electronically Signed By: ALEISHA HUNG MD On: July 19, 2016 This document has images extracted. Source: [facility] POWERCHART Document Id: [id number] Electronically signed by Conversion, [facility] Mannequin Wig Maker [id number] at 08/16/2016 4:52 AM CDT documented in this encounter Plan of Treatment Not on filedocumented as of this encounter Procedures Procedure Name Priority Date/Time Associated Diagnosis Comme nts LIPID PANEL, S Routine 07/12/2016 8:23 AM Results for this CDT procedure are i n the results section . documented in this encounter Results (ABNORMAL) Lipid Panel (07/12/2016 8:23 AM CDT) P athologist Signature Cholesterol, 189 <=199 MGDL POWERCHART Total Comment: 2013 National Lipid Association recommen dations for Total Cholesterol in adults ages 18 and up: Desirable <200 mg/dL Borderline high 200-239 mg/dL High 240 mg/dL 2014 National Lipid Association recommen dations for Total Cholesterol in children ages 2 to 17. Acceptable <170 mg/dL Borderline High 170-199 mg/dL High 200 mg/dL HX HDL 53 >=50 MGDL POWERCHART Comment: 2013 National Lipid Association recommen dations for HDL-C in adults ages 18 and up: Low <40 mg/dL (Men) Low <50 mg/dL (Women) 2014 National Lipid Association recommen dations for HDL-C in children ages 2 to 17. Low <40 mg/dL Borderline Low 40-45 mg/dL Acceptable >45 mg/dL Triglycerides 151 (H) <=149 MGDL POWERCHART Comment: 2013 National Lipid Association recommen dations for Triglycerides in adults ages 18 and up: Normal <150 mg/dL Borderline High 150-199 mg/dL High 200-499 mg/dL Very High 500 mg/dL 2014 National Lipid Association recommen dations for Triglycerides in children ages 2 to 9. Acceptable <75 mg/dL Borderline High 75-99 mg/dL High 100 mg/dL 2014 National Lipid Association recommen dations for Triglycerides in children ages 10 to 17. Acceptable <90 mg/dL Borderline High 90-129 mg/dL High 130 mg/dL Trigs >400mg/dL: Triglycerides >400 mg/ dL. Calculated LDL cholesterol is not valid. Non-HDL cholesterol may be used for risk assessment when triglycerides are >400mg/dL. Calculated LDL 106 <=129 MGDL POWERCHART Comment: 2013 National Lipid Association recommen dations for LDL-C in adults ages 18 and up: Desirable <100 mg/dL Above desirable 100-129 mg/dL Borderline high 130-159 mg/dL High 160-189 mg/dL Very High 190 mg/dL 2014 National Lipid Association recommen dations for LDL-C in children ages 2 to 17. Acceptable <110 mg/dL Borderline High 110-129mg/dL High 130 mg/dL LDL-C >190mg/dL: The markedly elevated LDL level is suggestive of a genetic condition such as familial hypercholesterolemia(FH) or familial defective apolipoprotein B-100 (FDB). Molecular genetic t esting for FH and FDB is available [facility]: FH/ADH Genetic Reflex [place] (test ADHP). Acquired (non-genetic) causes of markedly increased LDL cholesterol include cholestatic liver disease due to the presence of LpX. If a genetic form of hypercholesterolemia is suspected, family studies including biochemical testing fo r lipids (total cholesterol,triglycerides, LDL cholesterol and HDL cholesterol) are recommended. ??Please contact the laboratory at or the on-line test catalog at [employer] for information about how to order these ruben ts or to speak with a genetic counselor. Further interpretation would require clinical information. Total Cholesterol/HDL Ratio 4 PO WERCHART Specimen (Source) Anatomical Collection Method Collection Time Re ceived Time Location / / Volume Laterality Blood 07/12/2016 8:23 AM CDT Aleisha Feilciano M.D. LAB BLOOD ADD-ON Performing Organization Address City/State/ZIP Code Phon e Number POWERCHART documented in this encounter Visit Diagnoses Not on filedocumented in this encounter
--- OUTSIDE RECORDS SUMMARY | 2022-01-04 09:38 | XMS_ITS | Encounter Summary ---
:1935 Author Organization [facility] Address [address] [place] [address] Care Team Providers Name Role Phone Aleisha Hung M.D. Primary Care Provider [phone] Encounter Details Date Type Department Care Team Description 09/20/[address] [facility] Jarad Hou M.D., Ph.D. [address] [place] [phone] (Wo rk) Social History Tobacco Use Types Packs/Day Years Used Date Smoking Tobacco: Never Sex Assigned at Date Recorded Not on file documented as of this encounter Last Filed Vital Signs Vital Sign Reading Time Taken Comments Blood Pressure 123/53 09/20/2016 1:37 PM CDT Pulse 76 09/20/2016 1:37 PM CDT Temperature - - Respiratory Rate 18 09/20/2016 1:37 PM CDT Oxygen Saturation - - Inhaled [...] 02/0406/07/2017 mg 24 hr capsule mouth daily. [id number]-epa-fish oil Take 1 capsule by 0 08/201005/30/2018 1,400 mg/5 mL liquid mouth daily. potassium chloride Take 1 tablet by 0 01/07/2016 02/06/2017 (for_KLOR-CON M) 10 mEq ER mouth 2 (two) times tablet a day. sertraline (ZOLOFT) 50 mg Take 1 tablet by 0 05/201601/11/2017 tablet mouth daily. documented as of this encounter Progress Notes David Estes M.D. - 09/20/2016 1:57 PM CDT Clinic Full Note CHIEF COMPLAINT/REASON FOR VISIT Gout in feet HISTORY OF PRESENT ILLNESS Starting last night she has had left lateral ankle pain. She has had this joint affected by gout many times in the past. She denies radiation of the pain. It is worse with palpation or weight-bearing.It is moderate to severe in intensity. She denies eating differently than normal. She has no fever or chills but does have swelling at the lateral left ankle. MEDICATIONS Aricept 10 mg oral tablet, 10 mg, 1 tab(s), memory, PO, Bedtime, 3 refills aspirin 81 mg oral tablet, 81 mg, 1 tab(s), PO, Daily atenolol 50 mg oral tablet, 50 mg, 1 tab(s), high blood pressure, PO, Daily, 1 refills Biotin Forte oral tablet, 10,000 mcg, PO, Daily Calcium 600+D, 1 tab, PO, Daily chlorthalidone 25 mg oral tablet, 25 mg, 1 tab(s), blood pressure, PO, Daily, 3 refills colchicine 0.6 mg oral tablet, 0.6 mg, 1 tab(s), at the first sign of a gout flare followed by 0.6 mg one hour later, PO, q1hr, PRN, 3 refills Fish Oil oral capsule, 1 cap(s), 1400 mg, PO, Daily K-Dur 10 oral tablet, extended release, 10 meq, 1 tab(s), PO, 2xDay, 3 refills Lasix 20 mg oral tablet, 20 mg, 1 tab(s), water pill, PO, Daily, 3 refills losartan 100 mg oral tablet, 100 mg, 1 tab(s), high blood pressure, PO, Daily, 3 refills Namenda XR 7 mg oral capsule, extended release, 7 mg, 1 cap(s), memory, PO, Daily, 3 refills Zoloft 50 mg oral tablet, 50 mg, 1 tab(s), anxiety, PO, Daily, 1 refills ALLERGIES lisinopril PAST MEDICAL HISTORY Chronic Anxiety NOS Dementia (Major Neurocognitive Disorder) NOS Gout NOS Hypertension Pure Hypercholesterolemia Historical Tick Bite PROCEDURES/SURGICAL HISTORY Echocardiogram (06/01/2015), Colonoscopy (08/28/2013), Echocardiogram (06/06/2013), Colonoscopy (11/08/2006), HC COLONOSCOPY W SNARE REMOVAL TUMOR/POLYP/LESION - 11/08/06 (11/08/2006), Hysterectomy (1975), C TOTAL ABDOM HYSTERECTOMY - 1970's - Hysterectomy, Total Abdominal (bleeding) - benign (). SOCIAL HISTORY Date Time: 09/20/2016 13:37 Tobacco: Smoking Status: Never smoker Exposure: Care provider denies smoking in home, Other: never Alcohol: Use: Yes Recreational Drugs: Use: None Type: No Results Found FAMILY HISTORY Mother ( at 91 year(s)):Positive: Diabetes mellitus; Hypertension Father ( at 76 year(s)):Positive: Alzheimer's disease; Hypertension Brother: Negative: Son:Positive: Hypertension SYSTEMS REVIEW CONSTITUTIONAL: No fevers, chills, sweats, weight loss or fatigue. EYES: No blurriness or diplopia. EARS, NOSE, MOUTH, THROAT: No ear pain, hearing loss, congestion, rhinorrhea, sore throat or dysphagia. CARDIOVASCULAR: No chest pain or palpitations. RESPIRATORY: No shortness of breath, cough,or wheeze. GASTROINTESTINAL: No nausea, vomiting, diarrhea, constipation, abdominal pain, or black, bloody or tarry stools. GENITOURINARY: No dysuria, frequency, hesitancy or incontinence. MUSCULOSKELETAL: No back pain. VITAL SIGNS T: 36.8 ??C (Core) HR: 76 RR: 18 BP: 123 / 53 PHYSICAL EXAMINATION GENERAL: No acute distress. Alert and oriented x3. Normal affect. Appropriate dress and eye contact. EYE: Conjunctiva is clear. SKIN: Clear. MUSCULOSKELETAL: The left lateral ankle is swollen and tender with minimal erythema but it is warm. IMPRESSION/REPORT/PLAN Gout Acute If not feeling better in 3 days or if worsening, recommend reevaluation. Side effects of treatmentsdiscussed. Ordered: OV Est Pt Level 3 - 87190 - 15 min Orders: colchicine, 0.6 mg = 1 tab(s), PO, q1hr, PRN gout pain, at the first sign of a gout flare followed by 0.6 mg one hour later, # 10 tab(s), 3 Refill(s), Maintenance, Pharmacy: [facility] Electronically Signed By: DAVID ESTES MD On: 09/20/2016 02:04 PM Source: [facility] POWERCHART Document Id: [id number] documented in this encounter Miscellaneous Notes Miscellaneous - Aleisha Ramirez, CKaiMKaiAKai - 10/07/2016 2:49 PM CDT Med Management Document Contains Addenda Addendum by ALEISHA HUNG MD on October 07, 2016 15:03:37 CDT From: ALEISHA HUNG MD Sent: 10/07/2016 15:03:37 CDT Subject: RE:Med Management Approved Order:losartan (losartan 100 mg oral tablet) 1 tab(s) PO Daily high blood pressure Qty: 90 tab(s) Duration: 90 day(s) Refills: 3 Substitutions Allowed Route To Pharmacy - [facility] Signed by ALEISHA HUNG MD 10/07/2016 15:03:28 From: ALEISHA RAMIREZ CMA ([facility] Medicine Nurse [facility]) To: ALEISHA HUNG MD; Sent: 10/07/2016 14:49:21 CDT Subject: Med Management On hold pending signature Order:losartan (losartan 100 mg oral tablet) 1 tab(s) PO Daily high blood pressure Qty: 90 tab(s) Duration: 90 day(s) Refills: 3 Substitutions Allowed Route To Pharmacy - [facility] Caller is: ( ) Patient ( ) Mother ( ) Father ( ) Spouse ( ) Daughter ( ) Son ( x ) Pharmacy ( ) Other: Provider: 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 - 09/20/2016 1:56 PM CDT Ambulatory Patient Summary [address] [id number] Visit Information Name: JANETH RANGELE [facility] Number: [id number] Current Date: 09/20/2016 13:56:50 Physicians Attending Provider: DAVID ESTES MD Primary Care Provider: ALEISHA HUNG MD [...] Tablet(s), Oral, once a day blood pressure colchicine (colchicine 0.6 mg oral tablet) 1 Tablet(s), Oral, every hour as needed for gout pain at the first sign of a gout flare followed by 0.6 mg one hour later Routed to [address] [id number] donepezil (Aricept 10 mg oral tablet) 1 Tablet(s), Oral, once a day (at bedtime) memory furosemide (Lasix 20 mg oral tablet) 1 Tablet(s), Oral, once a day water pill losartan (losartan 100 mg oral tablet) 1 Tablet(s), Oral, once a day high blood pressure multivitamin (Biotin Forte oral tablet) 10,000 mcg, Oral, once a day omega-3 polyunsaturated fatty acids (Fish Oil oral capsule) 1 cap, Oral, once a day 1400 mg potassium chloride (K-Dur 10 oral tablet, extended release) 1 Tablet(s), Oral, two times a day sertraline (Zoloft 50 mg oral tablet) 1 Tablet(s), Oral, once a day anxiety Stop Taking the Following Medications: Medication list as of 09-20-16 13:56 Attention: If you have any medications at home that are not on this list, DO NOT take them until youcontact your provider for clarification. Give a copy of your medication list to your primary care provider. Update your medication list any time medications or doses are changed and carry your medication list at all times in case of emergency. Electronically Signed By: DAVID ESTES MD Signed On:20-SEP-2016 13:54:46 Your Allergies & Intolerances Substance Reaction Symptoms [...] if you dont have one. Go to [email or web address] and click on Create Your Account. Then, follow the directions to complete the online form. Youll be asked for your [facility] number which you can find at the top of this document. Your Goals/Additional instructions: Source: [facility] POWERCHART Document Id: [id number] Miscellaneous - David Estes M.D. - 09/20/2016 1:56 PM CDT Ambulatory Discharge Medication List [address] [id number] Visit Information Name: CLAIRE JANETH JOINER [facility] Number: [id number] Current Date: 09/20/2016 13:56:49 Attending Provider: DAVID ESTES MD Primary Care Provider: ALEISHA HUNG MD [...] Tablet(s), Oral, once a day blood pressure colchicine (colchicine 0.6 mg oral tablet) 1 Tablet(s), Oral, every hour as needed for gout pain at the first sign of a gout flare followed by 0.6 mg one hour later Routed to [address] [id number] donepezil (Aricept 10 mg oral tablet) 1 Tablet(s), Oral, once a day (at bedtime) memory furosemide (Lasix 20 mg oral tablet) 1 Tablet(s), Oral, once a day water pill losartan (losartan 100 mg oral tablet) 1 Tablet(s), Oral, once a day high blood pressure multivitamin (Biotin Forte oral tablet) 10,000 mcg, Oral, once a day omega-3 polyunsaturated fatty acids (Fish Oil oral capsule) 1 cap, Oral, once a day 1400 mg potassium chloride (K-Dur 10 oral tablet, extended release) 1 Tablet(s), Oral, two times a day sertraline (Zoloft 50 mg oral tablet) 1 Tablet(s), Oral, once a day anxiety Stop Taking the Following Medications: Medication list as of 09-20-16 13:56 Attention: If you have any medications at home that are not on this list, DO NOT take them until youcontact your provider for clarification. Give a copy of your medication list to your primary care provider. Update your medication list any time medications or doses are changed and carry your medication list at all times in case of emergency. Electronically Signed By: DAVID ESTES MD Signed On:20-SEP-2016 13:54:46 Additional Information: Source: [facility] POWERCHART Document Id: [id number] Miscellaneous - Rabia Michaels, L.P.N. - 09/20/2016 1:37 PM CDT Adult Drapery Maker Intake/History Adult Drapery Maker Intake/History Entered On: 09/20/2016 13:39 CDT Performed On: 09/20/2016 13:37 CDT by RABIA MICHAELS LPN Intake Chief Complaint : Gout in feet Onset of Symptoms : last night Temperature Core : 36.8 DegC(Converted to: 98.2 DegF) Peripheral Pulse Rate : 76 /min Respiratory Rate : 18 /min Heart Rhythm : Regular Systolic Blood Pressure : 123 mmHg Diastolic Blood Pressure : 53 mmHg NIBP Mean : 76 mmHg BP Location : Left upper extremity Blood Pressure Cuff Size : Regular RABIA MICHAELS LPN - 09/20/2016 13:37 CDT General Info Information Given By : Patient Languages : Divehi Is Patient Female and 13-50 no hysterectomy : No RABIA MICHAELS LPN - 09/20/2016 13:37 CDT Subjective Pain Symptoms : Yes RABIA MICHAELS LPN - 09/20/2016 13:37 CDT Pain Scale Pain Scale Verbal 0-10 : Open RABIA MICHAELS LPN - 09/20/2016 13:37 CDT Pain Pain Assessment Grid Pain 1 Location : Foot Laterality : Left Intensity : 6 RABIA MICHAELS LPN - 09/20/2016 13:37 CDT Dependent Habits Exposure to Tobacco Smoke : Care provider denies smoking in home, Other: never Smoking Status : Never smoker Tobacco 2A : No Tobacco Use/Currently Using : No Tobacco Use/Last 30 Days : No Tobacco Use/Last 12 months : No Alcohol Use : Yes RABIA MICHAELS LPN - 09/20/2016 13:37 CDT Caffeine Use Grid Caffeine Use : Current Type : Coffee Frequency : Daily Amount : 2 RABIA MICHAELS LPN - 09/20/2016 13:37 CDT Recreational Drug Use Grid Drug Use : None RABIA MICHAELS LPN - 09/20/2016 13:37 CDT [facility] Document Id: [id number] CDT!44 documented in this encounter Plan of Treatment Not on filedocumented as of this encounter Visit Diagnoses Not on filedocumented in this encounter Care Teams Sizer Machine Relationship Specialty Start Date End Date Aleisha Hung M.D. PCP - General 08/18/[address] [place] [phone] documented as of this encounter
--- OUTSIDE RECORDS SUMMARY | 2022-01-04 09:38 | XMS_ITS | Encounter Summary ---
:1935 Author Organization [facility] Address [address] [place] [address] Care Team Providers Name Role Phone Unavailable Primary Care Provider Unavailable Encounter Details Date Type Department Care Team Description 06/09/2015 Hospital Encounter [facility] [place] Whit Singh M.D. [address] [place] [phone] (Wo rk) Social History Tobacco Use Types Packs/Day Years Used Date Smoking Tobacco: Never Assessed Sex Assigned at Date Recorded Not on file documented as of this encounter Last Filed Vital Signs Vital Sign Reading Time Taken Comments Blood Pressure 138/62 06/09/2015 8:55 AM CDT Pulse 62 06/09/2015 8:55 AM CDT Temperature - - Respiratory Rate [...] 0 1 01/21/2019 D3/MINERALS (CALCIUM-VITAMIN D ORAL) [id number] Take 1 capsule by 0 011 05/30/2018 oil 1,400 mg/5 mL liquid mouth daily. documented as of this encounter Nursing Notes Batsheva Newby R.N. - 06/09/2015 9:48 AM CDT blood pressure readings Patient came in for a blood pressure reading today. Reviewed Dr. Singh's recommendation to increase potassium intake by eating a banana a day. Will come back for blood pressure reading next week. Will update Dr. Singh then. Electronically Signed By: BATSHEVA NEWBY RN On: 06/09/2015 09:50 AM Modified by and Electronically Signed by: BATSHEVA NEWBY RN On: 06/09/2015 09:50 AM Source: [facility] [employer] Document Id: [id number] documented in this encounter Miscellaneous Notes Miscellaneous - Breann Gutiérrez R.N. - 08/26/2015 9:16 AM CDT Med Management Document Contains Addenda Addendum by BOB VU RN on August 26, 2015 13:24:30 CDT Noted Addendum by MAGO GOLDEN MD on August 26, 2015 11:12:45 CDT From: MAGO GOLDEN MD Sent: 08/26/2015 11:12:45 CDT Subject: RE:Med Management Approved Order:potassium chloride (K-Dur 10 oral tablet, extended release) 1 tab(s) PO Daily Qty: 30 tab(s) Refills: 0 Substitutions Allowed Route To Pharmacy - [facility] Signed by MAGO GOLDEN MD 08/26/2015 11:12:41 Approved Order:furosemide (Lasix 20 mg oral tablet) 1 tab(s) PO Daily Qty: 30 tab(s) Refills: 0 Substitutions Allowed Route To Pharmacy - [facility] Signed by MAGO GOLDEN MD 08/26/2015 11:12:41 From: BREANN GUTIÉRREZ RN ([facility] [place] [facility]) To: MAGO GOLDEN MD; Cc: JOYCE RN Nurse; Sent: 08/26/2015 09:16:16 CDT Subject: Med Management On hold pending signature Order:furosemide (Lasix 20 mg oral tablet) 1 tab(s) PO Daily Qty: 30 tab(s) Refills: 0 Substitutions Allowed Route To Pharmacy - [facility] On hold pending signature Order:potassium chloride (K-Dur 10 oral tablet, extended release) 1 tab(s) PO Daily Qty: 30 tab(s) Refills: 0 Substitutions Allowed Route To Pharmacy - [facility] Caller is: ( ) Patient ( ) Mother ( ) Father ( ) Spouse ( ) Daughter ( ) Son ( x ) Pharmacy ( ) Other: Provider: Pharmacy: Name of Medications Needing Refill: Last Refill Date: Additional Information: Last / Future Appointment: last appt 03/03/15, last labs 08/01/14, proposing 30 day supply only, notified patient that she is due for yearly GME and also placed future order Disposition: ( ) Send to Pharmacy ( ) Call to Pharmacy ( ) 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
--- OUTSIDE RECORDS SUMMARY | 2022-01-04 09:38 | XMS_ITS | Encounter Summary ---
:1935 Author Organization [facility] Address [address] [place] [address] Care Team Providers Name Role Phone Unavailable Primary Care Provider Unavailable Encounter Details Date Type Department Care Team Description 03/31/2016 Hospital Encounter [facility] Whit Moyer M.D. [address] [place] [address] (Wo rk) Social History Tobacco Use Types Packs/Day Years Used Date Smoking Tobacco: Never Sex Assigned at Date Recorded Not on file documented as of this encounter Last Filed Vital Signs Vital Sign Reading Time Taken Comments Blood Pressure 158/56 03/31/2016 11:54 AM INSIGHTS MANAGER Pulse - - Temperature - - Respiratory Rate - - Oxygen Saturation - - Inhaled Oxygen Concentration - - Weight 57 kg (125 lb 10.6 oz) 03/31/2016 11:54 AM INSIGHTS MANAGER Height 157 cm (5' 1.81) 03/31/2016 11:54 AM INSIGHTS MANAGER Body Mass Index 23.12 03/31/2016 11:54 AM INSIGHTS MANAGER documented in this encounter Medications at Time [...] 02/0406/07/2017 mg 24 hr capsule mouth daily. zfoei-[id number]-noh-epa-fish oil Take 1 capsule by 0 08/201005/30/2018 1,400 mg/5 mL liquid mouth daily. potassium chloride Take 1 tablet by 0 01/07/2016 02/06/2017 (for_KLOR-CON M) 10 mEq ER mouth 2 (two) times tablet a day. documented as of this encounter Consult Notes Pinky Moyer M.D. - 03/31/2016 11:45 AM CST ANGELICA Mrs. Duenas is being seen in followup for aortic regurgitation. Mrs Duenas is an 81-year-old woman. In 2011 she was found to have at least moderate aortic regurgitation on echocardiogram. She has been followed for this and has essentially been asymptomatic. She in particular denies any symptoms of chest discomfort, shortness of breath, leg swelling or palpitations. She does her usual activities, cleaning house, walking steps and going shopping but had no regular exercise. She thinks she will startwhen the weather gets better. She has been a nonsmoker. No heart disease in her family, has had somehyperlipidemia, no diabetes but does have a history of hypertension. MEDICATIONS Her current medications include that of losartan 100 mg a day. Lasix 20 mg a day. Chlorthalidone 25 mg a day. Atenolol 50 mg a day. DIAGNOSTICS Currently she did have an echocardiogram which again showed moderate to severe aortic regurgitation,LV enlargement at 60 mm and this really has not changed much over the last few years. EF of 60%. Normal inferior vena cava. She had recently seen Dr. Duenas in February and there is evidence for neurocognitive issues. Her last labs in January showed a sodium of 132, potassium was a bit low at 3.3, had been 2.9 before that. PHYSICAL EXAMINATION GENERAL: She appears healthy. Her blood pressure on my exam was 146/50 and recent echo showed 135/41, and was 158/56 on her initial eval. LUNGS: Clear. CARDIAC: Jugular venous pressure appears normal. Carotid upstroke is brisk with somewhat of a slow fall off. No parasternal lift. PMI is to the left of the midclavicular line. S2-1 S2 with a 1-2/6 short systolic ejection murmur at the left sternal border and a grade 2/6 long diastolic murmur of aorticinsufficiency Left sternal border and apex. ABDOMEN: Soft, nontender. No masses. EXTREMITIES: Normal femoral and posterior tibial pulses and no edema. IMPRESSION/REPORT/PLAN Overall Mrs Duenas is doing well. She has had no symptoms of any heart failure. Her left ventricle is enlarged at 60 mm but this has not changed. She has a quite wide pulse pressure also consistent with severe aortic regurgitation. At this point, I would leave her on her current medications. Would follow her up in 1 year again. I also reviewed her ECG which shows evidence for left ventricular hypertrophy primarily. If there is any change in her symptoms she should be seen right away. The size of her ventricle has not changed in the last few years. We will see her follow up in 1 year with an echo or sooner if there is any change in her symptoms. Whit Moyer M.D./dayanna Electronically Signed By: Pinky MOYER MD On: 04/01/2016 09:25 AM Modified by and Electronically Signed by: Pinky MOYER MD On: 04/01/2016 09:25 AM Source: [facility] [id number] Document Id: [id number] GHTS MANAGER documented in this encounter Nursing Notes Batsheva Newby R.N. - 03/31/2016 4:28 PM CST lab test Patient telephoned with results of lab work today per Dr. Moyer. Electronically Signed By: BATSHEVA NEWBY RN On: 03/31/2016 04:29 PM Modified by and Electronically Signed by: BATSHEVA NEWBY RN On: 03/31/2016 04:29 PM Source: [facility] POWERCHART Document Id: [id number] GHTS MANAGER documented in this encounter Miscellaneous Notes Miscellaneous - Batsheva Newby R.N. - 03/31/2016 11:54 AM CST Adult Fare Enforcement Officer Intake/History Adult Fare Enforcement Officer Intake/History Entered On: 03/31/2016 11:58 INSIGHTS MANAGER Performed On: 03/31/2016 11:54 INSIGHTS MANAGER by BATSHEVA NEWBY pottery machine operator Chief Complaint : Here for follow-up - review echo and EKG Onset of Symptoms : No chest pain, SOB or edema Apical Heart Rate : 60 /min Heart Rhythm : Regular Systolic Blood Pressure : 158 mmHg (HI) Diastolic Blood Pressure : 56 mmHg NIBP Mean : 90 mmHg BP Location : Left upper extremity Blood Pressure Cuff Size : Regular SpO2 : 96 % Oxygen Therapy : Room air Height : 157 cm(Converted to: 5 ft 2 inch(es), 62 inch(es)) Actual Weight : 57 kg(Converted to: 125 lb 11 oz) Weight Source : Standing scale Dosing Weight Clinic : 57 kg Clinic BSA : 1.58 Body Mass Index : 23.12 kg/m2 BATSHEVA NEWBY RN - 03/31/2016 11:54 INSIGHTS MANAGER General Info Information Given By : Patient, Spouse Preferred Communication Mode : Verbal Languages : Venezuelan Is Patient Female and 13-50 no hysterectomy : No BATSHEVA NEWBY RN - 03/31/2016 11:54 INSIGHTS MANAGER Subjective Pain Symptoms : No BATSHEVA NEWBY RN - 03/31/2016 11:54 INSIGHTS MANAGER Dependent Habits Exposure to Tobacco Smoke : Care provider denies smoking in home, Other: never Smoking Status : Never smoker Tobacco 2A : No Tobacco Use/Currently Using : No Tobacco Use/Last 30 Days : No Tobacco Use/Last 12 months : No Alcohol Use : No BATSHEVA NEWBY RN - 03/31/2016 11:54 INSIGHTS MANAGER Caffeine Use Grid Caffeine Use : Current Type : Coffee Frequency : Daily Amount : 2 BATSHEVA NEWBY RN - 03/31/2016 11:54 INSIGHTS MANAGER Recreational Drug Use Grid Drug Use : None BATSHEVA NEWBY RN - 03/31/2016 11:54 INSIGHTS MANAGER Source: [employer] Document Id: [id number] INSIGHTS MANAGER!43 GHTS MANAGER documented in this encounter Plan of Treatment Not on filedocumented as of this encounter Procedures Procedure Name Priority Date/Time Associated Comments Diagnosis SODIUM, S/P Routine 03/31/2016 12:45 PM Results for this INSIGHTS MANAGER procedure are i n the results section. POTASSIUM, S/P Routine 03/31/2016 12:45 PM Result s for this INSIGHTS MANAGER procedure are i n the results section. CREATININE WITH Routine 03/31/2016 12:45 PM Resul ts for this EGFR, S/P INSIGHTS MANAGER procedure are i n the results section. ECG Routine 03/31/2016 11:56 AM Results for this INSIGHTS MANAGER procedure are i n the results section. documented in this encounter Results (ABNORMAL) Creatinine with eGFR (03/31/2016 12:45 PM INSIGHTS MANAGER) Analysis Performed At Patho logist Time Signature Creatinine 1.07 (H) 0.59 - POWERCHART 1.04 MGDL HXeGFR (MDRD) 49 (L) >=60 POWERCHART [id number] eGFR 60 >=60 POWERCHART Black/ [id number] Trinidadian Specimen (Source) Anatomical Collection Method Collection Time Re ceived Time Location / / Volume Laterality Blood 03/31/2016 12:45 PM INSIGHTS MANAGER Whit Moyer M.D. LAB BLOOD ADD-ON Performing Organization Address City/State/ZIP Code Phon e Number POWERCHART Sodium (03/31/2016 12:45 PM INSIGHTS MANAGER) P athologist Signature Sodium, S 140 135 - 145 POWERCHART MMOLL Specimen (Source) Anatomical Collection Method Collection Time Re ceived Time Location / / Volume Laterality Blood 03/31/2016 12:45 PM INSIGHTS MANAGER Whit Moyer M.D. LAB BLOOD ADD-ON Performing Organization Address City/State/ZIP Code Phon e Number POWERCHART Potassium (03/31/2016 12:45 PM INSIGHTS MANAGER) P athologist Signature Potassium, S 3.5 3.5 - 5.1 POWERCHART MMOLL Specimen (Source) Anatomical Collection Method Collection Time Re ceived Time Location / / Volume Laterality Blood 03/31/2016 12:45 PM INSIGHTS MANAGER Whit Moyer M.D. LAB BLOOD ADD-ON Performing Organization Address City/State/ZIP Code Phon e Number POWERCHART ECG 12 Lead (03/31/2016 11:56 AM INSIGHTS MANAGER) Specimen (Source) Anatomical Collection Method Collection Time Re ceived Time Location / / Volume Laterality 03/31/2016 11:56 AM INSIGHTS MANAGER Narrative [facility] - 03/31/2016 11:56 AM INSIGHTS MANAGER Test Reason : CAD Blood Pressure : / mmHG Vent. Rate : 060 BPM ? Atrial Rate : 060 BPM ?? P-R Int : 180 ms ?QRS D ur : 102 ms ?QT Int : 448 ms ? P-R-T Axe s : 036 -01 039 degrees ?? QTc Int : 448 ms Normal sinus rhythm Left ventricular hypertrophy Nonspecific ST abnormality When compared with ECG of 30-DEC-2014 19 :09, No significant change was found Referred By: Pinky MOYER ? Co nfirmed By:SULEMAN OLEA JR MD Procedure Note Provider, Juwan Godfrey - 08/23/2016F ormatting of this note might be different from the original. Test Reason : CAD Blood Pressure : / mmHG Vent. Rate : 060 BPM Atrial Rate : 060 B PM P-R Int : 180 ms QRS Dur : 102 ms QT Int : 448 ms P-R-T Axes : 036 -01 03 9 degrees QTc Int : 448 ms Normal sinus rhythm Left ventricular hypertrophy Nonspecific ST abnormality When compared with ECG of 30-DEC-2014 19 :09, No significant change was found Referred By: Pinky MOYER Confirmed By:ROCK OLEA JR MD Suleman Olea Jr., M.D. ECG ORDERABLES Performing Organization Address City/State/ZIP Code Phon e Number [facility] [address] [place] [address] documented in this encounter Visit Diagnoses Not on filedocumented in this encounter
--- OUTSIDE RECORDS SUMMARY | 2022-01-04 09:38 | XMS_ITS | Encounter Summary ---
:1935 Author Organization [facility] Address [address] [place] [address] Care Team Providers Name Role Phone Unavailable Primary Care Provider Unavailable Encounter Details Date Type Department Care Team Description 02/26/2016 [facility] Aleisha coyle M.D. [address] [phone] (Wo rk) Social History Tobacco [...] 02/0406/07/2017 mg 24 hr capsule mouth daily. ctukg-6q-emq-epa-fish oil Take 1 capsule by 0 08/201005/30/2018 1,400 mg/5 mL liquid mouth daily. potassium chloride Take 1 tablet by 0 01/07/2016 02/06/2017 (for_KLOR-CON M) 10 mEq ER mouth 2 (two) times tablet a day. documented as of this encounter Plan of Treatment Not on filedocumented as of this encounter Visit Diagnoses Not on filedocumented in this encounter
--- OUTSIDE RECORDS SUMMARY | 2022-01-04 09:39 | XMS_ITS | Encounter Summary ---
:1935 Author Organization [facility] Address [address] [place] [address] Care Team Providers Name Role Phone Unavailable Primary Care Provider Unavailable Encounter Details Date Type Department Care Team Description 09/12/[address] [facility] Whit Singh M.D. [address] [place], [place] [phone] (Wo rk) Social History [...] 0 1 01/21/2019 D3/MINERALS (CALCIUM-VITAMIN D ORAL) urfse-[id number]-kzl-epa-fish Take 1 capsule by 0 011 05/30/2018 oil 1,400 mg/5 mL liquid mouth daily. documented as of this encounter Plan of Treatment Not on filedocumented as of this encounter Procedures Procedure Name Priority Date/Time Associated Diagnosis Comme nts BUN (BLOOD UREA Routine 09/12/2014 9:03 AM Result s for this NITROGEN), S/P CDT procedure are in the results section. SODIUM, S/P Routine 09/12/2014 9:03 AM Results f or this CDT procedure are i n the results section. POTASSIUM, S/P Routine 09/12/2014 9:03 AM Results for this CDT procedure are i n the results section. documented in this encounter Results (ABNORMAL) Sodium (09/12/2014 9:03 AM CDT) P athologist Signature Sodium, S 122.2 (L) 135.0 - POWERCHART 145.0 MML Specimen (Source) Anatomical Collection Method Collection Time Re ceived Time Location / / Volume Laterality Blood 09/12/2014 9:03 AM CDT Whit Singh M.D. LAB BLOOD ADD-ON Performing Organization Address City/State/ZIP Code Phon e Number POWERCHART Potassium (09/12/2014 9:03 AM CDT) P athologist Signature Potassium, S 3.7 3.6 - 4.8 POWERCHART MMOLL Specimen (Source) Anatomical Collection Method Collection Time Re ceived Time Location / / Volume Laterality Blood 09/12/2014 9:03 AM CDT Whit Singh M.D. LAB BLOOD ADD-ON Performing Organization Address City/State/ZIP Code Phon e Number POWERCHART BUN (Blood Urea Nitrogen) (09/12/2014 9:03 AM CDT) P athologist Signature BUN (Blood Urea 14 7 - 18 MGDL POWERCHART Nitrogen), S Specimen (Source) Anatomical Collection Method Collection Time Re ceived Time Location / / Volume Laterality Blood 09/12/2014 9:03 AM CDT Whit Singh M.D. LAB BLOOD ADD-ON Performing Organization Address City/State/ZIP Code Phon e Number POWERCHART documented in this encounter Visit Diagnoses Not on filedocumented in this encounter
--- OUTSIDE RECORDS SUMMARY | 2022-01-04 09:39 | XMS_ITS | Encounter Summary ---
:1935 Author Organization [facility] Address [address] [place] [address] Care Team Providers Name Role Phone Unavailable Primary Care Provider Unavailable Encounter Details Date Type Department Care Team Description 12/23/[address] [facility] [place] [facility] ED Maki Mcfadden M.D. [address] [place] [address] [phone] (Wo rk) Social History Tobacco Use Types Packs/Day Years Used Date Smoking Tobacco: Never Assessed Sex Assigned at Date Recorded Not on file documented as of this encounter Last Filed Vital Signs Vital Sign Reading Time Taken Comments Blood Pressure 166/45 12/23/2014 12:34 PM CDT Pulse 51 12/23/2014 12:34 PM CDT Temperature - - Respiratory Rate 16 12/23/2014 9:36 AM CDT Oxygen Saturation - - Inhaled Oxygen Concentration - - Weight 61 kg (134 lb 7.7 oz) 12/23/2014 9:20 AM CDT Height 162 cm (5' 3.78) 12/23/2014 12:34 PM CDT Body Mass Index 23.24 12/23/2014 9:20 AM CDT documented in this encounter Discharge Summaries Fawad Das R.N. - 12/23/2014 1:32 PM CDT ED Discharge Instructions [address] [address] Name: JUAN J DUENAS Date of : 1935 12:00 AM Visit Date: 12/23/2014 9:16 AM [facility] Number: [id number] Address: [address] [facility] [id number] Primary Care Provider: MAGO GOLDEN MD IMPORTANT: [facility] in [place] would like to thank you for allowing us to assist you with your healthcare needs. The following includes patient education materials and informationregarding your injury/illness. Diagnosis: Hypertension (HTN) Emergency; Hypertension (HTN) Emergency Follow-Up Instructions: With: Address: When: MAGO GOLDEN [address] [place] [phone] Business (1) In 5days 12/28/2014 Your Upcoming Appointments: Date Time Location Provider 12/26/2014 08:45 [facility] Family [facility] Mago Carroll MD Patient Education Materials: High Blood Pressure --Established High Blood Pressure (Hypertension) is a chronic disease. The cause is unknown in most cases. It can usually be controlled with lifestyle changes and/or medicines. Symptoms of high blood pressure may include headache, dizziness, visual changes, chest pain and shortness of breath. Sometimes it causes no symptoms at all. However, even if there are no symptoms, untreated high blood pressure increases therisk of heart attack, also known as acute myocardial infarction, or AMI, and stroke. It is a serioushealth risk and should not be ignored. A normal blood pressure is 120/80 or less. The first (top) number is the systolic pressure. The second (bottom) number is the diastolic pressure. Hypertension exists when either the top number is 140 or higher, OR the bottom number is 90 or higher on repeated measurements. Home Care: All patients with high blood pressure should do the following to lower their pressure. If you are onmedicines, then these methods may reduce or eliminate your need for medicines in the future. Begin a weight loss program if you are overweight. Reduce your salt intake. ?? Avoid high salt foods (olives, pickles, smoked meats, salted potato chips, etc.). ?? Do not add salt to your food at the table. ?? Use only small amounts of salt when cooking. Begin an exercise program. Discuss with your doctor what type of exercise program would be best for you. It doesn't have to be difficult. Even brisk walking for 20 minutes three times a week is a good form of exercise. Avoid medicines which contain heart stimulants. This includes many cold and sinus decongestant pillsand sprays as well as diet pills. Check the warnings about hypertension on the label. Stimulants such as amphetamine or cocaine could be lethal for someone with hypertension. Never take these. Limit your caffeine intake or switch to caffeine-free products. Stop smoking. If you are a long-time smoker, this can be hard. Enroll in a stop- smoking program to improve your chance of success. Learning how to handle stress better is an important part of any program to lower blood pressure. Learn about relaxation methods such as meditation, yoga or biofeedback. If medicines were prescribed, take them exactly as directed. Missing doses may cause your blood pressure get out of control. Consider buying an automatic blood pressure machine (available at most pharmacies). Use this to monitor your blood pressure at home and report the results to your doctor. Follow Up: Regular visits to your own physician for blood pressure checks and medicine adjustment is an important part of your care. Make a follow-up appointment as directed by our staff. Get Prompt Medical Attention if any of the following occur: ?? Chest pain or shortness of breath ?? Severe headache ?? Throbbing or rushing sound in the ears ?? Nosebleed ?? Sudden severe abdominal pain ?? Extreme drowsiness, confusion or fainting ?? Dizziness or vertigo (dizziness with spinning sensation) ?? Weakness of an arm or leg or one side of the face ?? Difficulty with speech or vision ?? [id number] [facility], [address] [place] [address], [place] [address]. All rights reserved. This information is not [...] if you dont have one. Go to [email or web address] and click on Create Your Account. Then, follow the directions to complete the online form. Youll be asked for your [facility] number which you can find at the top of this document. ED Tests and Procedures: Order Status Automated Diff-5 Part Completed CBC (includes Auto Differential) Completed Comprehensive Metabolic Panel Completed Troponin T Completed DDimer Completed C-Reactive Protein Completed XR Chest [address] Chest w/ contrast Completed Discharge Prescriptions & Home Medications: Medication/Strength Dose Route Frequency Indications/Special Instructions/Comments/Notes potassium chloride (K-Dur 10 oral tablet, extended release) 10 meq Oral once a day furosemide (Lasix 20 mg oral tablet) 20 mg Oral once a day sertraline (Zoloft 50 mg oral tablet) 50 mg Oral once a day anxiety losartan (losartan 100 mg oral tablet) 100 [...] capsule) 1 cap(s) Oral once a day Comment: Attention: If you have any medications [...] most cases, you must let your doctor ch inge you again. Tell your doctor about any new or lasting problems. We cannot recognize and treat all injuries or illnesses in one Emergency Department visit. If you had special tests, such as EKG's or X-rays,we will review them again within 24 hours. We will call you if there are any new suggestions. Pleasefollow the instructions above carefully. If you are being transferred to another facility your follow up plan of care will be determined by the receiving facility. If you are a patient that is being discharged from the Emergency Department after receiving narcotics or other medications that may impair your judgment you may be a risk to yourself or others if you operate a motor vehicle. We recommend that you arrange a ride home with a responsible democrat. CLAIRE Calvillo CAROL LAVONNE , or responsible democrat have received this information and my questions have been answered. I have discussed any challenges I see with this plan with the nurse or physician. Patient Signature or Responsible Democrat/Relationship Date Time Provider Signature Date Time IMPORTANT: [...] arrange a ride home with a responsible democrat. CLAIRE Calvillo CAROL LAVONNE , or responsible democrat have received this information and my questions have been answered. I have discussed any challenges I see with this plan with the nurse or physician. Patient Signature or Responsible Democrat/Relationship Date Time Provider Signature Date Time This document has images extracted. Please consider using [facility] for all your patient education needs. Source: Pict Document Id: [id number] Fawad Das R.N. - 12/23/2014 1:32 PM CDT ED Depart Summary [facility] Emergency Department Clinical Discharge Summary PERSON INFORMATION Name JUAN J DUENAS Age 79 Years 1935 12:00 AM Sex Female Language South [place] PCP MAGO GOLDEN MD Marital Status Visit Id Visit Reason Chest pain; CHEST/LEG PAIN Specialty Enc Type Emergency Med Service Emergency Medicine Referred by Track Group [facility] ED Discharge 12/23/2014 1:07 PM Tracking Id [id number] Checkout 12/23/2014 1:07 PM Checkin 12/23/2014 9:16 AM Acuity 3 -Urgent Dispo Type * Discharged to Home or Self Care Arrival 12/23/2014 9:16 AM Reg Status Complete LOS 000 03:51 Address: [address] [place] [phone] Comment: PROVIDER INFORMATION Provider Role Provider Contact Time JEFFERY CANAS CLIENT SUPPORT ANALYST Nurse 12/23/14 09:40 MARISOL MCFADDEN MD ED Provider 12/23/14 09:40 LAILA ELKINS CLIENT SUPPORT ANALYST Nurse 12/23/14 09:41 DIAGNOSIS Hypertension (HTN) Emergency; Hypertension (HTN) Emergency Comment: PATIENT EDUCATION INFORMATION Instructions: HYPERTENSION, Established Follow up: With: Address: When: MAGO GOLDEN [address] [place] [phone] Business (7) In 5days 12/28/2014 Source: Pict Document Id: [id number] documented in this encounter Medications at Time of Discharge Medication Sig Dispensed Refills Start Date End Date aspirin [address] tablet Take 1 tablet by 0 201401/21/2019 mouth daily. biotin 10,000 mcg Take by mouth daily. 0 08/26/19 15 05/30/2018 tablet,disintegrating CALCIUM CARB/VIT Take by mouth daily. 0 1 01/21/2019 D3/MINERALS (CALCIUM-VITAMIN D ORAL) [id number] Take 1 capsule by 0 011 05/30/2018 oil 1,400 mg/5 mL liquid mouth daily. documented as of this encounter ED Notes Fawad Das R.N. - 12/23/2014 1:31 PM CDT ED Disposition Summary ED Disposition Summary Entered On: 12/23/2014 13:31 CDT Performed On: 12/23/2014 13:31 CDT by FAWAD DAS RN ED Disposition Summary Accompanied By : Spouse Mode of Discharge : Ambulatory Transportation : Private vehicle Printed Discharge Instructions Given to Patient : Yes Patient Status at Discharge from ED : Improved FAWAD DAS RN - 12/23/2014 13:31 CDT Source: Pict Document Id: [id number] CDT!7 Fawad Das R.N. - 12/23/2014 1:31 PM CDT ED Pain Assessment ED Pain Assessment Entered On: 12/23/2014 13:31 CDT Performed On: 12/23/2014 13:31 CDT by FAWAD DAS RN Pain Assessment Pain Symptoms : No FAWAD DAS RN - 12/23/2014 13:31 CDT Source: Pict Document Id: [id number] CDT!3 Jeffery Canas R.N. - 12/23/2014 9:54 AM CDT ED Treatments and Procedures ED Treatments and Procedures Entered On: 12/23/2014 9:55 CDT Performed On: 12/23/2014 9:54 CDT by JEFFERY CANAS RN Peripheral IV Peripheral IV Assess/Intervention Grid Peripheral IV #1 IV Activity : Start Number of Attempts : 1 Date of Insertion : 12/23/2014 CDT IV Site : Antecubital Laterality : Left Catheter Size : 18 Comments (Comment: Laila Elkins RN [JEFFERY CANAS RN - 12/23/2014 9:54 CDT] ) JEFFERY CANAS RN - 12/23/2014 9:54 CDT [facility] Document Id: [id number] CDT!10 Jeffery Canas RKaiN. - 12/23/2014 9:50 AM CDT ED Primary Assessment Document Has Been Updated ED Primary Assessment Entered On: 12/23/2014 9:53 CDT Performed On: 12/23/2014 9:50 CDT by JEFFERY CANAS RN Reason For Visit (As Of: 12/23/2014 09:53:36 CDT) Problems(Active) Aortic insufficiency (ICD-9-CM :424.1 ) Name of Problem: Aortic insufficiency ; Onset Date: 10/20/2011 ; Recorder: BATSHEVA NEWBY RN; Confirmation: Confirmed ; Classification: Nursing ; Code: 424.1; Contributor System: [employer] ; Last Updated: 12/06/2011 10:38 CDT ; Life Cycle Date: 11/01/2011 ; Life Cycle Status: Active ; Responsible Provider: BATSHEVA NEWBY RN; Vocabulary: ICD-9-CM ; Comments: 12/06/2011 8:34 - RUBENS AGUILAR LPN unknown date of dx 12/06/2011 10:38 - HUBER CORRALES DNP, GYROSCOPIC INSTRUMENT MECHANIC stress test Gout NOS (ICD-9-CM :274.9 ) Name of [...] Classification: Medical ; Code: 401.9 ; Contributor System:[employer] ; Last Updated: 10/18/2011 11:58 CDT ; Life Cycle Date: 11/09/2010 ; Life Cycle Status: Active ; Responsible Provider: MAY DAVIDSON LPN; Vocabulary: ICD-9-CM Pure Hypercholesterolemia (ICD-9-CM :272.0 ) Name of Problem: Pure Hypercholesterolemia ; Onset Date: 11/13/2001 ; Confirmation: Confirmed ; Classification: Medical ; Code: 272.0 ; Contributor System: [facility]_HX_PR_UPLOAD ; Last Updated: 06/01/2013 18:11 CDT ; Life Cycle Status: Active ; Vocabulary: ICD-9-CM ; Comments: - Pure hypercholesterolemia Diagnoses(Active) Chest pain Date: 12/23/2014 ; Diagnosis Type: Reason For Visit ; Confirmation: Complaint of ; Clinical Dx: Chest pain ; Classification: Medical ; Clinical Service: Emergency medicine ; Code: PNED ; Probability: 0 ; Diagnosis Code: [id number] Triage Chief Complaint Description : chest pain, leg pain Information Given By : Patient, Spouse Accompanied By : Spouse Mode of Arrival ED : Private vehicle Track : Medical Languages : [place] Patient Informed of Triage Location : Emergency department Treatments Prior to Arrival : Aspirin Is Patient Female and 13-50 no hysterectomy : No JEFFERY CANAS RN - 12/23/2014 9:50 CDT Pain Assessment Pain Symptoms : No JEFFERY CANAS RN - 12/23/2014 9:50 CDT Respiratory Airway : Patent Respirations : Unlabored Respiratory Pattern : Regular JEFFERY CANAS RN - 12/23/2014 9:50 CDT Cardiovascular Heart Rhythm : Regular Skin Color : Normal for ethnicity Skin Description : Dry Skin Temperature : Warm Cardiovascular Detailed Assessment : Yes JEFFERY CANAS RN - 12/23/2014 9:50 CDT CV Detailed CV Patient Stated Symptoms : Chest pain Nail Bed Color : [place] Capillary Refill : Less than 2 seconds Cardiac Rhythm : Sinus rhythm JEFFERY CANAS RN - 12/23/2014 9:50 CDT Radial Pulse, Left : 2+ Normal Radial Pulse, Right : 2+ Normal JEFFERY CANAS RN - 12/23/2014 9:50 CDT Neurological Last Well Time Known : Yes Last Known Well Time : 12/23/2014 9:45 CDT Level of Consciousness : Alert Orientation : Oriented x 3 Characteristics of Speech : Appropriate for age Neuro Patient Stated Symptoms : None Gait : Steady Swallowing Difficulty/Aspiration Risk : None JEFFERY CANAS RN - 12/23/2014 9:50 CDT ED Psychosocial Affect/Behavior : Calm, Cooperative, Appropriate Domestic Abuse Concerns : None Behavioral Health Screen/Safety Assmt : No JEFFERY CANAS RN - 12/23/2014 9:50 CDT Gastrointestinal Nutrition ED : Adequate JEFFERY CANAS RN - 12/23/2014 9:50 CDT Musculoskeletal Fall Prevention Education Provided : Yes JEFFERY CANAS RN - 12/23/2014 9:50 CDT Social Habits Tobacco Use/Currently Using : No Tobacco Use/Last 12 months : No Tobacco Use/Advised to Quit : No Exposure to Tobacco Smoke : Care provider denies smoking in home, Other: never Smoking Status : Never smoker JEFFERY CANAS RN - 12/23/2014 9:50 CDT Alcohol Use Grid Alcohol Use : No JEFFERY CANAS RN - 12/23/2014 9:50 CDT Recreational Drug Use Grid Drug Use : None JEFFERY CANAS RN - 12/23/2014 9:50 CDT [facility] Document Id: [id number] CDT!60 Marisol Mcfadden M.D. - 12/23/2014 9:35 AM CDT Chest pain Patient: JUAN J DUENAS Age: 79 years Sex: Female : 1935 Author: MARISOL MCFADDEN MD Attachments: None Associated Diagnosis: Hypertension (HTN) Emergency; Pain Chest (CP) NOS Basic Information Additional information: Chief Complaint from Nursing Triage Note : Chief Complaint Description 12/23/2014 9:20 CDT Chief Complaint Description chest and leg pain . History of Present Illness The patient presents with chest pain. The onset was 3 hours ago. The course/duration of symptoms is constant and worsening. Location: Left central chest. Radiating pain: left shoulder. The character ofsymptoms is pressure, dull and Pain lasted for about half hour and resolved .. The degree at onset was moderate, 6 /10. The degree at present is none. The relieving factor is none. Risk factors consistof hypertension and hyperlipidemia. Prior episodes: none. Associated symptoms: denies shortness of breath, denies nausea, denies vomiting, denies diaphoresis and denies anxiety. Review of Systems Additional review of systems information: All other systems reviewed and otherwise negative. Health Status Allergies: Allergic Reactions (Selected) Severity Not Documented Lisinopril- No reactions were documented.. Past Medical/ Family/ Social History Medical history: Active Hypertension (401.9): Onset in 1990 at 55 years. Resolved Tick Bite (919.4): Onset on 05/25/2011 at 76 years. Resolved.. Surgical history: Colonoscopy ([id number]) on 08/28/2013 at 78 Years. Echocardiogram ([id number]) on 06/06/2013 at 78 Years. Colonoscopy ([id number]) on 11/08/2006 at 71 Years. Comments: 01/28/2011 08:40 - GINNA TEJADA MD, Dr in [place] One sessile polyp recommended repeat in 5 years [facility] COLONOSCOPY W SNARE REMOVAL TUMOR/POLYP/LESION - 11/08/06 on 11/08/2006 at 71 Years. Hysterectomy ([id number]) in 1975 at 41 Years. C TOTAL ABDOM HYSTERECTOMY - 1970's - Hysterectomy, Total Abdominal (bleeding) - benign on .. Family history: Diabetes mellitus Mother () Hypertension Mother () Father () Son Alzheimer's disease Father () . Physical Examination Vital Signs: Vital Signs 12/23/2014 9:20 CDT Temperature Core 36.7 DegC Peripheral Pulse Rate 79 /min Respiratory Rate 16 /min SpO2 96 % Systolic Blood Pressure 204 mmHg >HHI Diastolic Blood Pressure 73 mmHg Mean Arterial Pressure 117 mmHg BP Location Left upper , Measurements 12/23/2014 9:20 CDT Height 162 cm Height Source Stated Dosing Weight 61.00 kg Actual Weight 61 kg Weight Source Bed scale Body Mass Index 23.24 kg/m2 , SpO2 12/23/2014 9:20 CDT SpO2 96 % . General: Alert and mild distress. Head: Normocephalic and atraumatic. Neck: Supple, trachea midline, no tenderness and no JVD. Eye: Pupils are equal, round and reactive to light, extraocular movements are intact, normal conjunctiva and vision unchanged. Ears, nose, mouth and throat: Tympanic membranes clear, oral mucosa moist and no pharyngeal erythemaor exudate. Cardiovascular: Regular rate and rhythm, No murmur, Normal peripheral perfusion and No edema. Respiratory: Lungs are clear to auscultation, respirations are non-labored, breath sounds are equal,Symmetrical chest wall expansion and cough. Chest wall: No tenderness. Back: Nontender, Normal range of motion and Normal alignment. Musculoskeletal: Normal ROM. normal strength. no tenderness. Gastrointestinal: Soft, Nontender, Non distended, Normal bowel sounds and No organomegaly. Genitourinary: No tenderness, no discharge and normal external genitalia. Neurological: Alert and oriented to person, place, time, and situation, No focal neurological deficit observed, CN II-XII intact, normal sensory observed and normal motor observed. Lymphatics: No lymphadenopathy. Psychiatric: Cooperative, appropriate mood & affect and normal judgment. Medical Decision Making OrdersLaunch Orders Laboratory: C-Reactive Protein (Order Processing): Stat, 12/23/2014 9:37 CDT, Once DDimer (Order Processing): Stat, 12/23/2014 9:36 CDT, Once Troponin T (Order Processing): Stat, 12/23/2014 9:36 CDT, Once Comprehensive Metabolic Panel (Order Processing): Stat, 12/23/2014 9:36 CDT, Once CBC (includes Auto Differential) (Order Processing): Stat, 12/23/2014 9:36 CDT, Once, Launch Orders Radiology: CXR 1 view portable (Order Processing): 12/23/2014 9:37 CDT, chest pain, Stat, Patient Bed, Once, 12/23/2014 9:37 CDT, [facility] Diagnostic Tests: EKG - Nurse/Rad (Order Processing): 12/23/2014 9:37 CDT, Once, Current Location, Launch Orders Pharmacy: Vasotec (Order Processing): 0.625 mg, IV Push, Once cloNIDine (Order Processing): 0.1 mg, PO, Once, Launch Orders Radiology: CT Chest w/ contrast (Order Processing): 12/23/2014 11:06 CDT, chest pain , elevated D Dimer rule out PE, Yes, Stat, Patient Bed, Once, 12/23/2014 11:06 CDT, [facility], Launch Orders Pharmacy: Lasix (Order Processing): 40 mg, PO, Once. Electrocardiogram:No ST-T changes, no ectopy, normal TN & QRS intervals. monitor technician:Normal sinus rhythm no Atrial fibrillation, no Premature Atrial Contraction (PAC). Results review:Lab results : Lab View 12/23/2014 9:30 CDT Hgb 12.0 g/dL Hct 36.1 % WBC 8.1 x10(9)/L RBC 4.03 x10(12)/L MCV 89.6 fL RDW 12.1 % Platelet 315 x10(9)/L Neutro Absolute 6.02 10(9)/L Lymph Absolute 1.22 x10(9)/L [place] Absolute 0.69 x10(9)/L Eos Absolute 0.17 x10(9)/L Baso Absolute 0.04 x10(9)/L Differential? Auto D-Dimer 1.01 mcg/mL FEU HI Sodium Lvl 142.0 mM/L Potassium Lvl 3.4 mmol/L LOW Chloride 107 mmol/L CO2 24.6 mmol/L AGAP 14 mmol/L Alkaline Phosphatase 71 U/L Glucose Lvl 102 mg/dL Creatinine 0.92 mg/dL EGFR (MDRD) 59 mL/min/1.73m2 LOW EGFR (MDRD) >60 mL/min/1.73m2 BUN 11 mg/dL Calcium Lvl 9.0 mg/dL Protein Total 6.8 g/dL Albumin Lvl 3.9 g/dL AST 23 unit/L ALT 20 unit/L Bili Total 0.6 mg/dL CRP 1.1 mg/L Troponin-T <0.01 ng/mL . Chest X-Ray:No acute disease process. Notes: Reason For Exam chest pain , elevated D Dimer rule out PE Report 23-Dec-2014 11:43:00 Exam: CT CHEST w Indications: chest pain , elevated D Dimer rule out PE 23-Dec-2014 12:52 CA PROCEDURE: CT scan of the Chest with IV contrast COMPARISON: None. IMPRESSION: 1. No pulmonary embolism, aortic dissection or aneurysm. 2. Findings concerning for congestive heart failure. 3. Multiple lateral indeterminate pulmonary nodules. HISTORY: chest pain , elevated D Dimer rule out PE FINDINGS: No pulmonary embolism, aortic dissection or aneurysm. Scattered vascular calcifications. Reflux of contrast into the hepatic veins, smooth interlobular septal thickening and small right pleural effusion concerning for congestive heart failure. No large airway filling defects identified. No significant axillary, mediastinal or hilar lymphadenopathy. Coronary artery calcifications noted. Indeterminate pleural-based nodular density right upper lobe image 49 series 8 measures 0.7 cm. Another pulmonary nodule right upper lobe image 83 measures 0.4 cm. Another pulmonary nodule right middle lobe image 158 measures 0.3 cm. Multiple small groundglass nodular densities right lower lobe. Multiple additional small pulmonary nodules noted left upper lobe and left lower lobe. See below for follow-up recommendations. Visible portions of the upper abdomen are otherwise unremarkable. No pathologic osseous lesions. GUIDELINES FOR FOLLOW-UP of solid nodules detected incidentally at CT (newly-detected indeterminate nodule in persons 35 years of age or older).~ These apply to solitary pulmonary nodules or multiple pulmonary nodules. If multiple nodules are present, then the size of the largest nodule determines follow-up. NODULE SIZE (mm)* LOW-RISK PATIENT@ 4 or less No further follow up >4-6 CT at 12 months; If unchanged, no further follow-up >6-8 CT at 6-12 months; then at 18-24 months, if no change >8 Consider Pulmonary Medicine consultation for management, or follow-up with CT imaging at 3, 9, and 24 months NODULE SIZE (mm)* HIGH-RISK PATIENT+ [address] at 12 months; If unchanged, no further follow-up >4-6 CT at 6-12 months; then at 18-24 months, if no change >6-8 CT at 3-6 months; then at 9-12 and 24 months, if no change >8 Consider Pulmonary Medicine consultation for management, or follow-up with CT imaging at 3, 9, and 24 months *Average of length and width @Minimal or absent history of smoking and of other known risk factors +History of smoking or of other known risk factors ~Nonsolid (ground-glass) or partly solid nodules may require longer follow-up to exclude indolent adenocarcinoma Bernadette Fay MD 23-Dec-2014 12:52 Signature Line Final Dictated: 12/23/2014 12:52 pm ELYSE FAY MD Signed (Electronic Signature): 12/23/2014 12:52 pm Transcribed by: [facility] Technologist: THERESA DELA CRUZ Result type: CT Chest w/ contrast Result date: 23 December 2014 11:39 CDT Result status: Auth (Verified) Result title: CT Chest w/ contrast Performed by: THERESA DELA CRUZ on 23 December 2014 11:39 CDT Verified by: ELYSE FAY MD on 23 December 2014 12:52 CDT Encounter info: [id number], [place] [facility], Emergency, 12/23/2014 - 12/23/2014 . Reexamination/ Reevaluation Course: unchanged. Pain status: unchanged. Assessment: exam unchanged. Impression and Plan Diagnosis Hypertension (HTN) Emergency (Discharge, Emergency medicine, Medical) Pain Chest (CP) NOS (Discharge, Emergency medicine, Medical) Hypertension (HTN) Emergency (Discharge, Emergency medicine, Medical) Plan Disposition: Discharged: to home. Patient was given the following educational materials: HYPERTENSION, Established. Follow up with: MAGO GOLDEN In 5 days 12/28/2014. Counseled: Patient, Family, Regarding diagnosis, Regarding diagnostic results, Regarding treatment plan, Regarding prescription, Patient indicated understanding of instructions. Notes: No reoccurance of chest pain. BP came down nicely with PO Clonidine and Iv Vasotec., Started on Lasix Po. First dose of Po Lasix in given in the ED . Chest CT scan findings are discussed. Rx is sent to the local Pharmacy .. Electronically Signed By: MARISOL MCFADDEN MD On: 12/23/2014 06:29 PM Modified by and Electronically Signed by: MARISOL MCFADDEN MD On: 12/23/2014 10:01 AM Source: [facility] [employer] Document Id: [id number]} Jeffery Canas R.N. - 12/23/2014 9:20 AM CDT ED Triage Assessment Document Has Been Updated ED Triage Assessment Entered On: 12/23/2014 9:26 CDT Performed On: 12/23/2014 9:20 CDT by JEFFERY CANAS RN Reason For Visit (As Of: 12/23/2014 09:26:28 CDT) Problems(Active) Aortic insufficiency (ICD-9-CM :424.1 ) Name of Problem: Aortic insufficiency ; Onset Date: 10/20/2011 ; Recorder: BATSHEVA NEWBY RN; Confirmation: Confirmed ; Classification: Nursing ; Code: 424.1; Contributor System: [employer] ; Last Updated: 12/06/2011 10:38 CDT ; Life Cycle Date: 11/01/2011 ; Life Cycle Status: Active ; Responsible Provider: BATSHEVA NEWBY RN; Vocabulary: ICD-9-CM ; Comments: 12/06/2011 8:34 - RUBENS AGUILAR LPN unknown date of dx 12/06/2011 10:38 - HUBER CORRALES DNP, GYROSCOPIC INSTRUMENT MECHANIC stress test Gout NOS (ICD-9-CM :274.9 ) Name of [...] Medical ; Code: 272.0 ; Contributor System: [email or web address] ; Last Updated: 06/01/2013 18:11 CDT ; Life Cycle Status: Active ; Vocabulary: ICD-9-CM ; Comments: - Pure hypercholesterolemia Diagnoses(Active) Chest pain Date: 12/23/2014 ; Diagnosis Type: Reason For Visit ; Confirmation: Complaint of ; Clinical Dx: Chest pain ; Classification: Medical ; Clinical Service: Emergency medicine ; Code: PNED ; Probability: 0 ; Diagnosis Code: [id number] Triage Chief Complaint Description : chest and leg pain Information Given By : Patient, Spouse Accompanied By : Alone, Spouse Mode of Arrival ED : Private vehicle Track : Medical Languages : [place] Patient Informed of Triage Location : Emergency department Vital Signs Assessed : Yes GCS Assessed : Yes Treatments Prior to Arrival : None Is Patient Female and 13-50 no hysterectomy : No JEFFERY CANAS RN - 12/23/2014 9:20 CDT Vital Signs Temperature Core : 36.7 DegC(Converted to: 98.1 DegF) Peripheral Pulse Rate : 79 /min Respiratory Rate : 16 /min Systolic Blood Pressure : 204 mmHg (>HHI) Diastolic Blood Pressure : 73 mmHg NIBP Mean : 117 mmHg BP Location : Left upper extremity SpO2 : 96 % Oxygen Therapy : Room air Height : 162 cm(Converted to: 5 ft 4 inch(es)) Actual Weight : 61 kg Actual Weight Conversion to Pounds : 134.2 lb Weight Source : Bed scale Height Source : Stated Body Mass Index : 23.24 kg/m2 JEFFERY CANAS RN - 12/23/2014 9:20 CDT Izabella Coma Eye Opening Response Friendly : Spontaneously Best Verbal Response Izabella : Oriented Best Motor Response Friendly : Obeys simple commands Friendly Coma Score : 15 JEFFERY CANAS RN - 12/23/2014 9:20 CDT Pain Assessment Pain Symptoms : No JEFFERY CANAS RN - 12/23/2014 9:20 CDT ED Physician Notification Time ED Physician Notification Time : 12/23/2014 9:24 CDT JEFFERY CANAS RN 12/23/2014 9:20 CDT QUIN QUIN Level 1 : No QUIN Level 2 : Yes JEFFERY CANAS RN - 12/23/2014 9:20 CDT DCP GENERIC CODE Tracking Acuity : 3 -Urgent Tracking Group : [facility] ED JEFFERY CANAS RN - 12/23/2014 9:20 CDT Allergy (As Of: 12/23/2014 09:26:28 CDT) Allergies (Active) lisinopril Estimated Onset Date: Unspecified ; Comments: Comment 1: Tickle in throat x 3 weeks with no other reason ; Created By: JAX DANIEL MD; Reaction Status: Active ; Category: Drug ; Substance: lisinopril ; Type: Allergy ; Updated By: JAX DANIEL MD; Reviewed Date: 12/23/2014 9:25 CDT ID Screen Drug Resistant Organism : No Travel Within Last 21 Days : No Contact with someone with Ebola : No JEFFERY CANAS RN - 12/23/2014 9:20 CDT Immunizations Immunizations Current : Yes JEFFERY CANAS RN - 12/23/2014 9:20 CDT [facility] [place] [employer] Document Id: [id number] CDT!50 documented in this encounter Miscellaneous Notes Miscellaneous - Fawad Das R.N. - 12/23/2014 1:31 PM CDT Valuables/Belongings Valuables/Belongings Entered On: 12/23/2014 13:31 CDT Performed On: 12/23/2014 13:31 CDT by FAWAD DAS RN Valuables/Belongings Home Medication Disposition : None brought in with patient FAWAD DAS RN - 12/23/2014 13:31 CDT [facility] [place] [employer] [facility] [employer] Document Id: [id number] CDT!3 Miscellaneous - Conversion, Historical Provider Ser - 12/23/2014 1:07 PM CDT Coding Summary-Paper Based CODING DATE: 01/17/2015 FINAL [place] [facility] STATUS: * Discharged to Home or Self Care PAYOR: Medicare ADMIT DX: R07.9 Chest pain, unspecified REASON FOR VISIT DX: R07.9 Chest pain, unspecified FINAL DX: PRINCIPAL: R07.9 Chest pain, unspecified SECONDARY: I10 Essential (primary) hypertension E78.0 Pure hypercholesterolemia PROCEDURES DOCTOR NAME DATE NOTE: The code number assigned matches the documented diagnosis and / or procedure in the patient's chart. However, the narrative phrase printed from the coding software may appear abbreviated, or result in slightly different terminology. Coded By: DEANNA RON Date Saved: 01/17/2015 08:54 am Source: [employer] Document Id: [id number] Miscellaneous - Fawad Das RKaiN. - 12/23/2014 9:16 AM CDT Facility Charge Ticket 2.0 11.0 DX Facility Charge Ticket 2.0 11.0 DX Entered On: 12/23/2014 13:31 CDT Performed On: 12/23/2014 9:16 CDT by FAWAD DAS RN Facility Charge Ticket 2.0 11.0 DX ED Other Charges : Standard ED Encounter TVL Level Translated RTF : Chest pain TVL:5 TVL Level for Facility Charge Ticket : Level 5 Arrival Mode Calc : 129 Mode of Arrival ED : Private vehicle [facility] Mode of Arrival Interpreted : Standard [facility] Process Management : None Order Management RTF : Laboratory CBC (includes Auto Differential),12/23/14 09:36,MARISOL MCFADDEN MD Completed Comprehensive Metabolic Panel,12/23/14 09:36,MARISOL MCFADDEN MD Completed Troponin T,12/23/14 09:36,MARISOL MCFADDEN MD Completed DDimer,12/23/14 09:36,MARISOL MCFADDEN MD Completed C-Reactive Protein,12/23/14 09:37,MARISOL MCFADDEN MD Completed Automated Diff-5 Part,12/23/14 09:41,MARISOL MCFADDEN MD Completed Xray CXR 1 view portable,12/23/14 09:37,MARISOL MCFADDEN MD Completed CT / MRI / Ultrasound CT Chest w/ contrast,12/23/14 11:06,MARISOL MCFADDEN MD Completed [facility] Order Management : CT/MRI/Ultrasound, Lab tests, Xray - plain films 30 Minutes Critical Care : No Nursing Notes RTF : Triage Forms ED Triage Assessment,12/23/14 09:20,JEFFERY CANAS RN Nursing Notes ED Primary Assessment,12/23/14 09:50,JEFFERY CANAS CLIENT SUPPORT ANALYST Pain Assessment,12/23/14 13:31,FAWAD DAS RN [facility] Nursing Assessment : Triage and 1-2 nursing assessments Treatments Prior to Arrival : Aspirin FAWAD ADS RN - 12/23/2014 13:31 CDT Source: [facility] [employer] Document Id: [id number] CDT!15 documented in this encounter Plan of Treatment Not on filedocumented as of this encounter Procedures Procedure Name Priority Date/Time Associated Comments Diagnosis AUTOMATED Routine 12/23/2014 9:30 AM Results f or this DIFFERENTIAL, B CDT procedure ar e in the results section. D-DIMER, P Routine 12/23/2014 9:30 AM Results f or this CDT procedure are i n the results section. CBC WITH DIFFERENTIAL, Routine 12/23/2014 9:30 AM Results for this B CDT procedure are i n the results section. C-REACTIVE PROTEIN Routine 12/23/2014 9:30 AM Res ults for this (CRP), S/P CDT procedure are i n the results section. TROPONIN T, 5TH GEN, P Routine 12/23/2014 9:30 AM Results for this CDT procedure are i n the results section. COMPREHENSIVE Routine 12/23/2014 9:30 AM Results for this METABOLIC PANEL, S/P CDT procedu re are in the results section. documented in this encounter Results Automated Differential (12/23/2014 9:30 AM CDT) P athologist Signature Absolute 6.02 1.70 - POWERCHART Neutrophils 7.00 109L Lymphocytes 1.22 0.90 - POWERCHART 2.90 X109L Monocytes 0.69 0.30 - POWERCHART 0.90 X109L Eosinophils 0.17 0.05 - POWERCHART 0.50 X109L Absolute 0.04 0.00 - POWERCHART Basophil 0.30 X109L Specimen Anatomical Collection Method Collection Time Receive d Time (Source) Location / / Volume Laterality Blood 12/23/2014 9:30 AM 5 9:30 CDT AM CDT Marisol Mcfadden M.D. LAB BLOOD ADD-ON Performing Organization Address City/State/[facility] Code Phon e Number POWERCHART (ABNORMAL) D-Dimer (12/23/2014 9:30 AM CDT) P athologist Signature D-Dimer, P 1.01 (H) 0.00 - 0.50 POWERCHART [id number] Comment: Results of this test should always be in terpreted in conjunction with the patient's medical history, clinical presentation and other findings. DVT and PE clinical diagnosis should not be based on the D-Dimer result alone. The measurement of D-Dimer should not be used as an aid in the diagnosis of VTE, in patients with: -Therapeutic dose anticoagulant therapy for >24 hours -Fibrinolytic therapy within previous 7 days -Trauma or surgery within previous 4 wee ks -Disseminated malignancies -Aortic aneurysm -Sepsis, severe infections, pneumonia, s evere skin infections -Liver cirrhosis - Specimen (Source) Anatomical Collection Method Collection Time Re ceived Time Location / / Volume Laterality Blood 12/23/2014 9:30 AM CDT Marisol Mcfadden M.D. LAB BLOOD ADD-ON Performing Organization Address City/State/[facility] Code Phon e Number POWERCHART CBC with Differential (12/23/2014 9:30 AM CDT) P athologist Signature Leukocytes 8.1 3.4 - 10.5 POWERCHART X109L Erythrocytes 4.03 3.90 - POWERCHART 5.03 [id number] Hemoglobin 12.0 12.0 - POWERCHART 15.5 GDL Hematocrit 36.1 34.9 - POWERCHART 44.5 MCV 89.6 82.0 - POWERCHART 98.0 FL HX RDW 12.1 11.9 - POWERCHART 15.5 Platelet Count 315 150 - 450 POWERCHART X109L HXDifferential? Auto POWERCHART Specimen (Source) Anatomical Collection Method Collection Time Re ceived Time Location / / Volume Laterality Blood 12/23/2014 9:30 AM CDT Marisol Mcfadden M.D. LAB BLOOD ADD-ON Performing Organization Address City/State/ZIP Code Phon e Number POWERCHART CRP (C-Reactive Protein) (12/23/2014 9:30 AM CDT) P athologist Signature C-Reactive 1.1 <=5.0 MGL POWERCHART Protein (CRP), S Specimen (Source) Anatomical Collection Method Collection Time Re ceived Time Location / / Volume Laterality Blood 12/23/2014 9:30 AM CDT Marisol Mcfadden M.D. LAB BLOOD ADD-ON Performing Organization Address City/State/ZIP Code Phon e Number POWERCHART Troponin T (12/23/2014 9:30 AM CDT) athologist Signature Troponin T, S <0.01 <=0.01 NGML POWERCHART Comment: 0.03 - 0.1 ng/mL Intermediate Z one Specimen (Source) Anatomical Collection Method Collection Time Re ceived Time Location / / Volume Laterality Blood 12/23/2014 9:30 AM CDT Marisol Mcfadden M.D. LAB BLOOD ADD-ON Performing Organization Address City/State/ZIP Code Phon e Number POWERCHART (ABNORMAL) CMP (Comprehensive Metabolic Panel) (12/23/2014 9:30 AM CDT) [facility] gist Method Time Signature Anion Gap 14 10 - 20 POWERCHART MMOLL Alkaline 71 55 - 142 POWERCHART Phosphatase, S UL Alanine 20 7 - 45 POWERCHART Amniotransferase, LD UNITL Aspartate 23 8 - 43 POWERCHART Aminotransferase UNITL (AST), S Bilirubin, Total, S 0.6 0.1 - 1.0 POWERCHART MGDL BUN (Blood Urea 11 7 - 18 POWERCHART Nitrogen), S MGDL Chloride, S 107 98 - 107 POWERCHART MMOLL CO2 Total 24.6 23.0 - POWERCHART 29.0 MMOLL Creatinine 0.92 0.60 - POWERCHART 1.30 MGDL Total Protein, S 6.8 6.3 - 7.9 POWERCHART GDL Glucose 102 70 - 139 POWERCHART MGDL Calcium, Total, S 9.0 8.8 - POWERCHART 10.2 MGDL Sodium, S 142.0 135.0 - POWERCHART 145.0 MML Potassium, S 3.4 (L) 3.6 - 4.8 POWERCHART MMOLL Albumin, S 3.9 3.5 - 5.0 POWERCHART GDL HXeGFR (MDRD) 59 (L) >=60 POWERCHART [id number] 2 eGFR Black/ >60 >=60 POWERCHART [place] [id number] Specimen (Source) Anatomical Collection Method Collection Time Re ceived Time Location / / Volume Laterality Blood 12/23/2014 9:30 AM CDT Marisol Mcfadden M.D. LAB BLOOD ADD-ON Performing Organization Address City/State/ZIP Code Phon e Number POWERCHART documented in this encounter Visit Diagnoses Not on filedocumented in this encounter
--- OUTSIDE RECORDS SUMMARY | 2022-01-04 09:39 | XMS_ITS | Encounter Summary ---
:1935 Author Organization [facility] Address [address] [place] [address] Care Team Providers Name Role Phone Unavailable Primary Care Provider Unavailable Encounter Details Date Type Department Care Team Description 12/26/2014 Hospital Encounter HX [facility] Aleisha coyle M.D. [id number] [id number] (Wo rk) Social History Tobacco Use Types Packs/Day Years Used Date Smoking Tobacco: Never Assessed Sex Assigned at Date Recorded Not on file documented as of this encounter Last Filed Vital Signs Vital Sign Reading Time Taken Comments Blood Pressure 152/60 12/26/2014 10:04 AM CDT Pulse 76 12/26/2014 10:04 AM CDT Temperature - - Respiratory Rate 16 12/26/2014 8:52 AM CDT Oxygen Saturation - - Inhaled Oxygen Concentration - - Weight 58.5 kg (128 lb 15.5 oz) 12/26/2014 8:52 AM CDT Height 162 cm (5' 3.78) 12/26/2014 10:04 AM CDT Body Mass Index 22.29 12/26/2014 8:52 AM CDT documented in this encounter Medications at Time of Discharge Medication Sig Dispensed Refills Start Date End Date aspirin [address] tablet Take 1 tablet by 0 201401/21/2019 mouth daily. biotin 10,000 mcg Take by mouth daily. 0 08/26/19 15 05/30/2018 tablet,disintegrating CALCIUM CARB/VIT Take by mouth daily. 0 1 01/21/2019 D3/MINERALS (CALCIUM-VITAMIN D ORAL) [id number] Take 1 capsule by 0 011 05/30/2018 oil 1,400 mg/5 mL liquid mouth daily. documented as of this encounter Progress Notes Aleisha Hermosillo M.D. - 12/26/2014 7:33 AM CDT Clinic Full Note CHIEF COMPLAINT/REASON FOR VISIT FR ER visit HISTORY OF PRESENT ILLNESS Janeth presents today with her to follow up on a recent visit to the ED for chest pain and left shoulder pain. Tests were okay and patient was discharged home. She was started on Lasix and potassium due to pulmonary edema on CT scan. She denies any change in her breathing since starting this. Her main concern today is sciatic nerve pain in the left leg from the gluteal region to her ankle that has been ongoing for a couple weeks. She reports that this has been an off/on issue for years, but normally it goes away more quickly. She has not taken any meds for it. No numbness, tingling, or injury. She has some upper back pain at times. Patient reports that her anxiety has been worse with the pa in, but otherwise she thinks it is probably better since being on the Zoloft. No side effects with the Zoloft. Patient also reports that her memory continues to be an issues and she would like to starta medication. MEDICATIONS aspirin 81 mg oral tablet, 81 mg, 1 tab(s), PO, Daily atenolol 50 mg oral tablet, 50 mg, 1 tab(s), high blood pressure, PO, Daily, 3 refills Biotin Forte oral tablet, 10,000 mcg, PO, Daily Calcium 600+D, 1 tab, PO, Daily Fish Oil oral capsule, 1 cap(s), PO, Daily K-Dur 10 oral tablet, extended release, 10 meq, 1 tab(s), PO, Daily, 1 refills Lasix 20 mg oral tablet, 20 mg, 1 tab(s), PO, Daily, 1 refills losartan 100 mg oral tablet, 100 mg, 1 tab(s), high blood pressure, PO, Daily, 3 refills Zoloft 50 mg oral tablet, 50 mg, 1 tab(s), anxiety, PO, Daily, 11 refills ALLERGIES lisinopril PAST MEDICAL HISTORY Chronic Gout NOS Hypertension Pure Hypercholesterolemia Historical Tick Bite PROCEDURES/SURGICAL HISTORY Colonoscopy (08/28/2013), Echocardiogram (06/06/2013), Colonoscopy (11/08/2006), HC COLONOSCOPY W SNARE REMOVAL TUMOR/POLYP/LESION - 11/08/06 (11/08/2006), Hysterectomy (1975), C TOTAL ABDOM HYSTERECTOMY - 1970's - Hysterectomy, Total Abdominal (bleeding) - benign (). SOCIAL HISTORY Date Time: 12/26/2014 08:52 Tobacco: Smoking Status: Never smoker Exposure: Care provider denies smoking in home, Other: never Alcohol: Use: No Recreational Drugs: Use: None Type: No Results Found FAMILY HISTORY Mother ( at 91 year(s)):Positive: Diabetes mellitus; Hypertension Father ( at 76 year(s)):Positive: Alzheimer's disease; Hypertension Brother: Negative: Son:Positive: Hypertension SYSTEMS REVIEW As per HPI. No further chest pain. VITAL SIGNS T: 36.7 ??C (Core) HR: 76 RR: 16 BP: 152 / 60 SpO2: 97% HT: 162.0 cm WT: 58.5 kg BMI: 22.29 PHYSICAL EXAMINATION General: Alert and oriented. No acute distress. Neck: Supple. No lymphadenopathy. No carotid bruits. Cardiovascular exam: Regular rate and rhythm. Normal S1 and S2. No murmurs, rubs, or gallops. Lungs: Clear to auscultation bilaterally. Extremities: No pedal edema. Patient has 5/5 strength with hip abduction and adduction, knee flexion and extension, and ankle plantar flexion and dorsiflexion. Back: Patient's right shoulder is lower than the left with standing. She has tenderness with palpation of the left mid gluteal region. DIAGNOSTIC RESULTS Report 23-Dec-2014 11:43:00 Exam: CT CHEST w Indications: chest pain , elevated D Dimer rule out PE 23-Dec-2014 12:52 CA PROCEDURE: CT scan of the Chest with IV contrast COMPARISON: None. IMPRESSION: 1. No pulmonary embolism, aortic dissection or aneurysm. 2. Findings concerning for congestive heart failure. 3. Multiple lateral indeterminate pulmonary nodules. [1] Sodium Lvl: 137.0 12/26/14 Potassium Lvl: 4.2 12/26/14 Chloride: 101 12/26/14 CO2: 26.8 12/26/14 Glucose Lvl: 86 12/26/14 Creatinine: 1.01 12/26/14 Calcium Lvl: 9.6 12/26/14 BUN: 20 High 12/26/14 EGFR (MDRD): 53 Low 12/26/14 EGFR (MDRD): >60 12/26/14 AGAP: 13 12/26/14 IMPRESSION/REPORT/PLAN 1. Congestive Heart Failure (CHF) NOS Patient is doing okay on the Lasix. BMP were updated today and acceptable. Echo is up to date. Ordered: OV Est Pt Level 4 - 51994 - 25 min 2. Sciatica L We will try a Medrol Dosepak and refer to PT due to the continued nature of the pain. Ordered: OV Est Pt Level 4 - 87479 - 25 min 3. Loss Memory NOS We are going to start Aricept. We discussed common side effects and that the med does not improve the memory, but it slows the decline of memory loss. Recheck in 1 month at which point we will go up to 10mg daily if she tolerates it. Ordered: OV Est Pt Level 4 - 18022 - 25 min 4. Nodule Pulmonary NOS We are going to order a CT scan in 1 year for follow up. Ordered: OV Est Pt Level 4 - 85523 - 25 min 5. Hypertension HTN NOS Initial BP was high, but repeat was a little better. Will recheck in 1 month. FOOTNOTES [1]CT Chest w/ contrast; THERESA DELA CRUZ 12/23/2014 11:39 CDT Electronically Signed By: ALEISHA GOLDEN MD On: 12/28/2014 07:38 AM Source[facility] Document Id: [id number] documented in this encounter Miscellaneous Notes Miscellaneous - Aleisha Hermosillo M.D. - 12/26/2014 11:02 AM CDT Normal Results Letter 26 December 2014 JANETH DUENAS [address] [facility] [place] [id number] Dear JANETH DUENAS, I am pleased to report that your results from the following diagnostic test(s) are normal. Please follow up with us as we discussed during your visit or sooner if you have any concerns. If you have questions or concerns, please do not hesitate to call our office. Result Name Current Result Previous Result Normal Range Sodium Lvl (mM/L) 137.0 12/26/2014 142.0 12/23/2014 135.0 - 145.0 Potassium Lvl (mmol/L) 4.2 12/26/2014 (L) 3.4 12/23/2014 3.6 - 4.8 Chloride (mmol/L) 101 12/26/2014 107 12/23/2014 98 - 107 CO2 (mmol/L) 26.8 12/26/2014 24.6 12/23/2014 23.0 - 29.0 AGAP (mmol/L) 13 12/26/2014 14 12/23/2014 10 - 20 Glucose Lvl (mg/dL) 86 12/26/2014 102 12/23/2014 70 - 139 Creatinine (mg/dL) 1.01 12/26/2014 0.92 12/23/2014 0.60 - 1.30 EGFR (MDRD) (mL/min/1.73m2) (L) 53 12/26/2014 (L) 59 12/23/2014 >=60 - EGFR (MDRD) (mL/min/1.73m2) >60 12/26/2014 >60 12/23/2014 >=60 - BUN (mg/dL) (H) 20 12/26/2014 11 12/23/2014 7 - 18 Calcium Lvl (mg/dL) 9.6 12/26/2014 9.0 12/23/2014 8.8 - 10.2 Sincerely, ALEISHA GOLDEN [address] [address] Electronic Signature Electronically Signed By: ALEISHA GOLDEN MD On: 26 December 2014 This document has images extracted. Source: [facility] POWERCHART Document Id: [id number] Miscellaneous - Jenae Bai L.P.NKai - 12/26/2014 10:04 AM CDT Ambulatory Vitals Height Weight Ambulatory Vitals Height Weight Entered On: 12/26/2014 10:04 CDT Performed On: 12/26/2014 10:04 CDT by JENAE BAI LPN Vitals/Ht/Wt Peripheral Pulse Rate : 76 /min Systolic Blood Pressure : 152 mmHg (HI) Diastolic Blood Pressure : 60 mmHg NIBP Mean : 91 mmHg BP Location : Left upper extremity Blood Pressure Cuff Size : Regular Height : 162.0 cm(Converted to: 5 ft 4 inch(es), 64 inch(es)) JENAE BAI LPN - 12/26/2014 10:04 CDT Source: [employer] Document Id: [id number] CDT!9 [place] - Aleisha Hermosillo M.D. - 12/26/2014 9:40 AM CDT Ambulatory Patient Summary [address] [id number] Visit Information Name: JANETH DUENAS [facility] Number: [id number] Current Date: 12/26/2014 09:40:16 Physicians Attending Provider: ALEISHA GOLDEN MD Primary [...] tab, Oral, once a day donepezil (Aricept 5 mg oral tablet) 1 Tablet(s), Oral, once a day (at bedtime) [facility] [address] [place] [address] [id number] furosemide (Lasix 20 mg oral tablet) 1 Tablet(s), Oral, once a day losartan (losartan 100 mg oral tablet) 1 Tablet(s), Oral, once a day high blood pressure methylPREDNISolone (Medrol Dosepak 4 mg oral tablet) See special instructions, Oral, as directed x 6day(s) New Routed to [facility] [address] multivitamin (Biotin Forte oral tablet) 10,000 mcg, Oral, once a day omega-3 polyunsaturated fatty acids (Fish Oil oral capsule) 1 cap, Oral, once a day potassium chloride (K-Dur 10 oral tablet, extended release) 1 Tablet(s), Oral, once a day sertraline (Zoloft 50 mg oral tablet) 1 Tablet(s), Oral, once a day anxiety Stop Taking the Following Medications: Medication list as of 12-26-14 09:40 Attention: If you have any medications at [...] Electronically Signed By: ALEISHA GOLDEN MD Signed On:26-DEC-2014 09:39:42 Your Allergies & Intolerances Substance Reaction Symptoms [...] if you dont have one. Go to [email or web address] and click on Create Your Account. Then, follow the directions to complete the online form. Youll be asked for your [facility] number which you can find at the top of this document. Your Goals/Additional instructions: Future Appointment: Vivek Carroll/[facility] soto, 1 month, 30 min Lab: _ Radiology: _ Need Prior Auth: _ NO Prior Auth: _ Consult: _ Release of MR_ PHI_ Source: [employer] [facility] Document Id: [id number] Miscellaneous - Aleisha Hermosillo M.D. - 12/26/2014 9:40 AM CDT Ambulatory Discharge Medication List [address] [id number] Visit Information Name: JANETH DUENAS [facility] Number: [id number] Visit Date: 12/26/2014 09:40:15 Attending Provider: ALEISHA GOLDEN MD Primary Care [...] tab, Oral, once a day donepezil (Aricept 5 mg oral tablet) 1 Tablet(s), Oral, once a day (at bedtime) memory [facility] [address] [place] [address] [phone] furosemide (Lasix 20 mg oral tablet) 1 Tablet(s), Oral, once a day losartan (losartan 100 mg oral tablet) 1 Tablet(s), Oral, once a day high blood pressure methylPREDNISolone (Medrol Dosepak 4 mg oral tablet) See special instructions, Oral, as directed x 6day(s) New Routed to [facility] [address] multivitamin (Biotin Forte oral tablet) 10,000 mcg, Oral, once a day omega-3 polyunsaturated fatty acids (Fish Oil oral capsule) 1 cap, Oral, once a day potassium chloride (K-Dur 10 oral tablet, extended release) 1 Tablet(s), Oral, once a day sertraline (Zoloft 50 mg oral tablet) 1 Tablet(s), Oral, once a day anxiety Stop Taking the Following Medications: Medication list as of 12-26-14 09:40 Attention: If you have any medications at [...] Electronically Signed By: ALEISHA GOLDEN MD Signed On:26-DEC-2014 09:39:42 Additional Information: Source: [facility] POWERCHART Document Id: [id number] Miscellaneous - Rubens Duque, L.P.N. - 12/26/2014 8:52 AM CDT Adult It Administrator Intake/History Adult It Administrator Intake/History Entered On: 12/26/2014 8:57 CDT Performed On: 12/26/2014 8:52 CDT by RUBENS DUQUE LPN Intake Chief Complaint : [facility] ER visit Onset of Symptoms : Chest pain, better elevated bp Siactic nerve pain left buttocks Temperature Core : 36.7 DegC(Converted to: 98.1 DegF) Peripheral Pulse Rate : 72 /min Respiratory Rate : 16 /min Heart Rhythm : Regular Systolic Blood Pressure : 159 mmHg (HI) Diastolic Blood Pressure : 73 mmHg NIBP Mean : 102 mmHg BP Location : Left upper extremity Blood Pressure Cuff Size : Regular SpO2 : 97 % Oxygen Therapy : Room air Height : 162.0 cm(Converted to: 5 ft 4 inch(es), 64 inch(es)) Actual Weight : 58.5 kg(Converted to: 129 lb 0 oz) Weight Source : Standing scale Dosing Weight Clinic : 58.5 kg Clinic BSA : 1.62 Body Mass Index : 22.29 kg/m2 RUBENS DUQUE LPN - 12/26/2014 8:52 CDT General Info Information Given By : Patient, Spouse Preferred Communication Mode : Verbal Languages : Nauruan Is Patient Female and 13-50 no hysterectomy : No RUBENS DUQUE LPN 12/26/2014 8:52 CDT Subjective Pain Symptoms : Yes RUBENS DUQUE LPN 12/26/2014 8:52 CDT Pain Scale Pain Scale Verbal 0-10 : Open RUBENS DUQUE LPN 12/26/2014 8:52 CDT Pain Pain Assessment Grid Pain 1 Location : Buttock Laterality : Left Intensity : 8 Time Pattern : Constant Onset : Sudden Quality : Aching Pain Radiation : Yes (Comment: down leg [RUBENS DUQUE LPN 12/26/2014 8:52 CDT] ) Aggravating Factors : None Alleviating Factors : None Associated Symptoms : None RUBESN DUQUE LPN 12/26/2014 8:52 CDT Dependent Habits Tobacco Use/Currently Using : No Tobacco Use/Last 12 months : No Tobacco Use/Advised to Quit : No Exposure to Tobacco Smoke : Care provider denies smoking in home, Other: never Smoking Status : Never smoker Alcohol Use : No RUBENS UDQUE LPN 12/26/2014 8:52 CDT Caffeine Use Grid Caffeine Use : Current Type : Coffee Frequency : Daily Amount : 2 RUBENS DUQUE LPN 12/26/2014 8:52 CDT Recreational Drug Use Grid Drug Use : None RUBENS DUQUE COAL SCREENER - 12/26/2014 8:52 CDT Source: [facility] POWERCHART Document Id: [id number] CDT!59 documented in this encounter Plan of Treatment Not on filedocumented as of this encounter Procedures Procedure Name Priority Date/Time Associated Diagnosis Comme nts BASIC METABOLIC Routine 12/26/2014 9:46 AM Result s for this PANEL, S/P CDT procedure are i n the results section. documented in this encounter Results (ABNORMAL) BMP (Basic Metabolic Panel) (12/26/2014 9:46 AM CDT) P athologist Signature Anion Gap 13 10 - 20 POWERCHART MMOLL BUN (Blood Urea 20 (H) 7 - 18 POWERCHART Nitrogen), S MGDL Chloride, S 101 98 - 107 POWERCHART MMOLL CO2 Total 26.8 23.0 - POWERCHART 29.0 MMOLL Creatinine 1.01 0.60 - POWERCHART 1.30 MGDL Glucose 86 70 - 139 POWERCHART MGDL Calcium, Total, 9.6 8.8 - 10.2 POWERCHART S MGDL Sodium, S 137.0 135.0 - POWERCHART 145.0 MML Potassium, S 4.2 3.6 - 4.8 POWERCHART MMOLL HXeGFR (MDRD) 53 (L) >=60 POWERCHART [id number] eGFR >60 >=60 POWERCHART Black/ [id number] Gabonese Specimen (Source) Anatomical Collection Method Collection Time Re ceived Time Location / / Volume Laterality Blood 12/26/2014 9:46 AM CDT Aleisha Gonzales M.D. LAB BLOOD ADD-ON Performing Organization Address City/State/ZIP Code Phon e Number POWERCHART documented in this encounter Visit Diagnoses Not on filedocumented in this encounter
--- OUTSIDE RECORDS SUMMARY | 2022-01-04 09:39 | XMS_ITS | Encounter Summary ---
:1935 Author Organization [facility] Address [address] [place] [address] Care Team Providers Name Role Phone Unavailable Primary Care Provider Unavailable Encounter Details Date Type Department Care Team Description 11/11/2014 Hospital Encounter HX [facility] ED Aris Salcedo M.D. [address] [place], [place] [phone] (Wo rk) Social History Tobacco Use Types Packs/Day Years Used Date Smoking Tobacco: Never Assessed Sex Assigned at Date Recorded Not on file documented as of this encounter Last Filed Vital Signs Vital Sign Reading Time Taken Comments Blood Pressure 155/53 11/11/2014 11:40 AM CDT Pulse 60 11/11/2014 11:40 AM CDT Temperature - - Respiratory Rate 16 11/11/2014 10:52 AM CDT Oxygen Saturation - - Inhaled Oxygen Concentration - - Weight - - Height - - Body Mass Index - - documented in this encounter Discharge Summaries Fawad Das R.N. - 11/11/2014 12:00 PM CDT ED Discharge Instructions [address] [address] Name: JUAN J DUENAS Date of : 1935 12:00 AM Visit Date: 11/11/2014 10:45 AM [facility] Number: [id number] Address: [address] [facility] [place] [phone] Primary Care Provider: MAGO GOLDEN MD IMPORTANT: [facility] in [place] would like to thank you for allowing us to assist you with your healthcare needs. The following includes patient education materials and informationregarding your injury/illness. Diagnosis: Disorder Anxiety Generalized; Pain Chest Atypical Follow-Up Instructions: With: Address: When: MAGO GOLDEN [address] [place] [address] [place] [address] Business (1) Within As Needed Your Upcoming Appointments: Date Time Location Provider 11/12/2014 11:15 [facility] Shannan Hinds Patient Education Materials: Chest Pain, Noncardiac Based on your visit today, the exact cause of your chest pain is not certain. Your condition does not seem serious and your pain does not appear to be coming from your heart. However, sometimes the signs of a serious problem take more time to appear. Therefore, please watch for the warning signs listed below. Home Care: Rest today and avoid strenuous activity. Take any prescribed medicine as directed. Follow Up with your doctor or this facility as instructed or if you do not start to feel better within 24 hours. Get Prompt Medical Attention if any of the following occur: ?? A change in the type of pain: if it feels different, becomes more severe, lasts longer, or beginsto spread into your shoulder, arm, neck, jaw or back ?? Shortness of breath or increased pain with breathing ?? Cough with dark colored sputum (phlegm) or blood ?? Weakness, dizziness, or fainting ?? Fever of 100.4?F (38?C) or higher, or as directed by your healthcare provider ?? Swelling, pain or redness in one leg ?? [phone] [facility], [address] [place] [address], [place] [address]. All rights reserved. This information is not [...] if you dont have one. Go to [email or web address] and click on Create Your Account. Then, follow the directions to complete the online form. Youll be asked for your [facility] number which you can find at the top of this document. ED Tests and Procedures: 0Order Status Discharge Prescriptions & Home Medications: Medication/Strength Dose Route Frequency Indications/Special Instructions/Comments/Notes sertraline (Zoloft 50 mg oral tablet) 50 mg Oral once a day anxiety losartan (losartan 100 mg oral tablet) 100 mg Oral once a day high blood pressure hydrochlorothiazide (hydrochlorothiazide 25 mg oral tablet) 12.5 mg Oral once a day high blood pressure atenolol (atenolol 50 mg oral tablet) 50 mg Oral once a day high blood pressure multivitamin (Biotin Forte oral tablet) 10,000 mcg Oral once a day aspirin (aspirin 81 mg oral tablet) 81 mg Oral once a day *indomethacin (Indocin 50 mg oral capsule) 50 mg Oral three times a day as needed for Gout pain Takewith food calcium-vitamin D (Calcium 600+D) 1 tab Oral once a day omega-3 polyunsaturated fatty acids (Fish Oil oral capsule) 1 cap(s) Oral once a day * You have let us know that [...] arrange a ride home with a responsible alliance party. CLAIRE Calvillo CAROL LAVONNE or kalee mccauley have received this information and my questions have been answered. I have discussed any challenges I see with this plan with the nurse or physician. Patient Signature or Responsible Libertarian/Relationship Date Time Provider Signature Date Time IMPORTANT: [...] arrange a ride home with a responsible alliance party. CLAIRE Calvillo CAROL LAVONNE , or responsible alliance party have received this information and my questions have been answered. I have discussed any challenges I see with this plan with the nurse or physician. Patient Signature or Responsible Libertarian/Relationship Date Time Provider Signature Date Time This document has images extracted. Please consider using [employer] for all your patient education needs. Source: [employer] Document Id: [id number] Fawad Das R.N. - 11/11/2014 12:00 PM CDT ED Depart Summary [facility] Emergency Department Clinical Discharge Summary PERSON INFORMATION Name JUAN J DUENAS Age 79 Years 1935 12:00 AM Sex Female Language Kosovan PCP MAGO GOLDEN MD Marital Status N [id number] Visit Id Visit Reason Chest pain; Chest pain Specialty Enc Type Emergency Med Service Emergency Medicine Referred by Track Group [facility] ED Discharge 11/11/2014 12:00 PM Tracking Id [id number] Checkout 11/11/2014 12:00 PM Checkin 11/11/2014 10:45 AM Acuity 3 -Urgent Dispo Type * Discharged to Home or Self Care Arrival 11/11/2014 10:45 AM Reg Status Complete LOS 000 01:15 Address: [address] [place] [phone] Comment: PROVIDER INFORMATION Provider Role Provider Contact Time ISAMAR SALCEDO MD ED Provider 11/11/14 11:05 FAWAD DAS SENIOR DATA DEVELOPER Nurse 11/11/14 11:08 DIAGNOSIS Disorder Anxiety Generalized; Pain Chest Atypical Comment: PATIENT EDUCATION INFORMATION Instructions: CHEST PAIN, NonCardiac Follow up: With: Address: When: MAGO GOLDEN [address] [place] [address] [phone] Business (1) Within As Needed Source: [employer] Document Id: [id number] documented in this encounter Medications at Time of Discharge Medication Sig Dispensed Refills Start Date End Date aspirin [address] tablet Take 1 tablet by 0 201401/21/2019 mouth daily. biotin 10,000 mcg Take by mouth daily. 0 08/26/19 15 05/30/2018 tablet,disintegrating CALCIUM CARB/VIT Take by mouth daily. 0 1 01/21/2019 D3/MINERALS (CALCIUM-VITAMIN D ORAL) [id number] Take 1 capsule by 0 011 05/30/2018 oil 1,400 mg/5 mL liquid mouth daily. documented as of this encounter ED Notes Fawad Das R.N. - 11/11/2014 11:59 AM CDT ED Pain Assessment ED Pain Assessment Entered On: 11/11/2014 11:59 CDT Performed On: 11/11/2014 11:59 CDT by FAWAD DAS RN Pain Assessment Pain Symptoms : No FAWAD DAS RN - 11/11/2014 11:59 CDT Source: [employer] Document Id: [id number] CDT!3 Fawad Das R.N. - 11/11/2014 11:59 AM CDT ED Disposition Summary ED Disposition Summary Entered On: 11/11/2014 11:59 CDT Performed On: 11/11/2014 11:59 CDT by FAWAD DAS RN ED Disposition Summary Accompanied By : Spouse Mode of Discharge : Ambulatory Transportation : Private vehicle Printed Discharge Instructions Given to Patient : Yes Patient Status at Discharge from ED : Improved FAWAD DAS RN - 11/11/2014 11:59 CDT Source: [employer] Document Id: [id number] CDT!7 Isamar Salcedo M.D. - 11/11/2014 11:40 AM CDT atypical chest pain Patient: JUAN J DUENAS Age: 79 years Sex: Female : 1935 Author: ISAMAR SALCEOD MD Attachments: None Associated Diagnosis: Pain Chest Atypical; Disorder Anxiety Generalized Basic Information Additional information: Chief Complaint from Nursing Triage Note : Chief Complaint Description 11/11/2014 10:52 CDT Chief Complaint Description presents with left posterior shoulder pain since yesterday morning that is intermittet states it started anteriorly yesterday am but now is only in the posterior . History of Present Illness Patient comes in with . She initially was concerned about chest pain and she has difficulty being intact about the history. I have supplemented her history with a thorough review of her medical records including the Family Medicine notes and her cardiology consultation notes and by Dr. Shell, as well as cardiac studies Patient carries the diagnosis of atypical chest pain with normal recent echoes except for severe aortic regurgitation. She has been seen multiple times for migratory pain in the background of anxiety and cognitive difficulties. It sounds like she might of had a typical right-sided pain yesterday but then the because cane concerned about chest pain and this morning but it really was left shoulder pain. It sounded brief fall and completely unassociated with any other symptoms such as cough shortness of breath diaphoresis nausea palpitations or syncope. It is completely gone now and 70 like did not last over a few minutes. . Review of Systems Constitutional symptoms: No fever, no chills, no sweats or no weakness. Respiratory symptoms: No shortness of breath, no cough, no sputum production, no stridor or no wheezing. Cardiovascular symptoms: No palpitations, no tachycardia, no syncope, no diaphoresis or no peripheral edema. Health Status Allergies: Allergic Reactions (Selected) Severity Not Documented Lisinopril- No reactions were documented.. Past Medical/ Family/ Social History Medical history: Active Hypertension (401.9): Onset in 1990 at 55 years. Resolved Tick Bite (919.4): Onset on 05/25/2011 at 76 years. Resolved.. Surgical history: Colonoscopy ([id number]) on 08/28/2013 at 78 Years. Echocardiogram ([id number]) on 06/06/2013 at 78 Years. Colonoscopy ([id number]) on 11/08/2006 at 71 Years. Comments: 01/28/2011 08:40 - GINNA TEJADA MD, Dr in [place] One sessile polyp recommended repeat in 5 years [facility] COLONOSCOPY W SNARE REMOVAL TUMOR/POLYP/LESION - 11/08/06 on 11/08/2006 at 71 Years. Hysterectomy ([id number]) in 1975 at 41 Years. C TOTAL ABDOM HYSTERECTOMY - 1970's - Hysterectomy, Total Abdominal (bleeding) - benign on .. Family history: Diabetes mellitus Mother () Hypertension Mother () Father () Son Alzheimer's disease Father () . Physical Examination Vital Signs: Vital Signs 11/11/2014 11:40 CDT Temperature Core 36.8 DegC Peripheral Pulse Rate 60 /min SpO2 98 % Systolic Blood Pressure 155 mmHg HI Diastolic Blood Pressure 53 mmHg 11/11/2014 10:55 CDT Systolic Blood Pressure 179 mmHg >HHI Diastolic Blood Pressure 59 mmHg 11/11/2014 10:52 CDT Temperature Core 36.5 DegC Peripheral Pulse Rate 62 /min Respiratory Rate 16 /min SpO2 99 % , SpO2 11/11/2014 11:40 CDT SpO2 98 % 11/11/2014 10:52 CDT SpO2 99 % . General: Alert and no acute distress. Skin: Warm, dry, pink and intact. Eye: Pupils are equal, round and reactive to light. Neck: Supple, trachea midline, no tenderness, no JVD and no carotid bruit. Cardiovascular: Regular rate and rhythm, No murmur, Normal peripheral perfusion and No edema. Respiratory: Lungs are clear to auscultation, breath sounds are equal, Respirations: Regular and Retractions: None. Chest wall: No tenderness. Musculoskeletal: Normal ROM. normal strength. no tenderness. no swelling. Gastrointestinal: Soft and Nontender. Reexamination/ Reevaluation Electrocardiogram is unchanged. Her story is very atypical and not associated with any worrisome features and is recurrent over the last few months in the face of a thorough cardiovascular evaluation. This is atypical and noncardiac. Discuss with her worrisome symptoms such as diaphoresis shortness of breath new or changing pain which were not referral evaluation. Impression and Plan Diagnosis Pain Chest Atypical (Discharge, Emergency medicine, Medical) Disorder Anxiety Generalized (Discharge, Emergency medicine, Medical) Plan Condition: Stable. Disposition: Discharged: to home. Patient was given the following educational materials: CHEST PAIN, NonCardiac. Counseled: Patient, Family, Regarding diagnostic results, Regarding treatment plan, Patient indicated understanding of instructions. Electronically Signed By: ISAMAR SALCEDO MD On: 11/11/2014 01:57 PM Modified by and Electronically Signed by: ISAMAR SALCEDO MD On: 11/11/2014 01:57 PM Source: [facility] [employer] Document Id: [id number]} Fawad Das R.N. - 11/11/2014 11:08 AM CDT ED Primary Assessment Document Has Been Updated ED Primary Assessment Entered On: 11/11/2014 11:10 CDT Performed On: 11/11/2014 11:08 CDT by FAWAD DAS RN Reason For Visit (As Of: 11/11/2014 11:10:26 CDT) Problems(Active) Aortic insufficiency (ICD-9-CM :424.1 ) Name of Problem: Aortic insufficiency ; Onset Date: 10/20/2011 ; Recorder: BATSHEVA NEWBY RN; Confirmation: Confirmed ; Classification: Nursing ; Code: 424.1; Contributor System: [employer] ; Last Updated: 12/06/2011 10:38 CDT ; Life Cycle Date: 11/01/2011 ; Life Cycle Status: Active ; Responsible Provider: BATSHEVA NEWBY RN; Vocabulary: ICD-9-CM ; Comments: 12/06/2011 8:34 - RUBENS AGUILAR LPN unknown date of dx 12/06/2011 10:38 - HUBER CORRALES DNP, PHARMACY INTAKE COORDINATOR stress test Gout NOS (ICD-9-CM :274.9 ) [...] Classification: Medical ; Code: 401.9 ; Contributor System:[employer] ; Last Updated: 10/18/2011 11:58 CDT ; Life Cycle Date: 11/09/2010 ; Life Cycle Status: Active ; Responsible Provider: MAY DAVIDSON LPN; Vocabulary: ICD-9-CM Pure Hypercholesterolemia (ICD-9-CM :272.0 ) Name of Problem: Pure Hypercholesterolemia ; Onset Date: 11/13/2001 ; Confirmation: Confirmed ; Classification: Medical ; Code: 272.0 ; Contributor System: [facility] ; Last Updated: 06/01/2013 18:11 CDT ; Life Cycle Status: Active ; Vocabulary: ICD-9-CM ; Comments: - Pure hypercholesterolemia Diagnoses(Active) Chest pain Date: 11/11/2014 ; Diagnosis Type: Reason For Visit ; Confirmation: Complaint of ; Clinical Dx: Chest pain ; Classification: Medical ; Clinical Service: Emergency medicine ; Code: PNED ; Probability: 0 ; Diagnosis Code: [id number] Triage Mode of Arrival ED : Private vehicle Track : Medical Languages : Kosovan Treatments Prior to Arrival : None Is Patient Female and 13-50 no hysterectomy : FAWAD Hooker RN - 11/11/2014 11:08 CDT Pain Assessment Pain Symptoms : FAWAD Hooker RN - 11/11/2014 11:08 CDT ED Physician Notification Time ED Physician Notification Time : 11/11/2014 10:55 CDT FAWAD DAS RN - 11/11/2014 11:08 CDT QUIN DCP GENERIC CODE Tracking Acuity : 3 -Urgent Tracking Group : [facility] ED FAWAD DAS RN - 11/11/2014 11:08 CDT Allergy (As Of: 11/11/2014 11:10:26 CDT) Allergies (Active) lisinopril Estimated Onset Date: Unspecified ; Comments: Comment 1: Tickle in throat x 3 weeks with no other reason ; Created By: JAX DANIEL MD; Reaction Status: Active ; Category: Drug ; Substance: lisinopril ; Type: Allergy ; Updated By: JAX DANIEL MD; Reviewed Date: 11/11/2014 10:55CDT ID Screen Drug Resistant Organism : No Travel Within Last 21 Days : No FAWAD DAS RN - 11/11/2014 11:08 CDT Immunizations Immunizations Current : Yes FAWAD DAS RN - 11/11/2014 11:08 CDT Respiratory Airway : Patent Respirations : Unlabored Respiratory Pattern : Regular FAWAD DAS RN - 11/11/2014 11:08 CDT Cardiovascular Heart Rhythm : Regular Skin Color : Normal for ethnicity Skin Description : Dry Skin Temperature : Warm Cardiovascular Detailed Assessment : Yes Monitoring Lead : II Monitoring Lead Manager Massage Department : Initiated FAWAD DAS RN - 11/11/2014 11:08 CDT CV Detailed CV Patient Stated Symptoms : Chest pain Nail Bed Color : [place] Cardiac Rhythm : Sinus rhythm Ectopy Frequency : None FAWAD DAS RN - 11/11/2014 11:08 CDT Neurological Last Well Time Known : Not applicable Level of Consciousness : Alert Orientation : Oriented x 3 Characteristics of Speech : Appropriate for age FAWAD DAS RN - 11/11/2014 11:08 CDT ED Psychosocial Affect/Behavior : Calm, Cooperative, Appropriate Domestic Abuse Concerns : None Behavioral Health Screen/Safety Assmt : No FAWAD DAS RN - 11/11/2014 11:08 CDT Gastrointestinal Nutrition ED : Adequate FAWAD DAS RN - 11/11/2014 11:08 CDT Musculoskeletal Fall Prevention Education Provided : Yes FAWAD DAS RN - 11/11/2014 11:08 CDT Social Habits Tobacco Use/Currently Using : No Exposure to Tobacco Smoke : Care provider denies smoking in home, Other: never Smoking Status : Never smoker FAWAD DAS RN - 11/11/2014 11:08 CDT Alcohol Use Grid Alcohol Use : No FAWAD DAS RN - 11/11/2014 11:08 CDT Recreational Drug Use Grid Drug Use : None FAWAD DAS RN - 11/11/2014 11:08 CDT Source: [facility] [employer] Document Id: [id number] CDT!60 Fawad Das R.N. - 11/11/2014 10:52 AM CDT ED Triage Assessment Document Has Been Updated ED Triage Assessment Entered On: 11/11/2014 10:55 CDT Performed On: 11/11/2014 10:52 CDT by FAWAD DAS RN Reason For Visit (As Of: 11/11/2014 10:55:25 CDT) Problems(Active) Aortic insufficiency (ICD-9-CM :424.1 ) Name of Problem: Aortic insufficiency ; Onset Date: 10/20/2011 ; Recorder: BATSHEVA NEWBY RN; Confirmation: Confirmed ; Classification: Nursing ; Code: 424.1; Contributor System: [employer] ; Last Updated: 12/06/2011 10:38 CDT ; Life Cycle Date: 11/01/2011 ; Life Cycle Status: Active ; Responsible Provider: BATSHEVA NEWBY RN; Vocabulary: ICD-9-CM ; Comments: 12/06/2011 8:34 - RUBENS AGUILAR LPN unknown date of dx 12/06/2011 10:38 - HUBER CORRALES DNP, PHARMACY INTAKE COORDINATOR stress test Gout NOS (ICD-9-CM :274.9 ) [...] Medical ; Code: 272.0 ; Contributor System: [facility] ; Last Updated: 06/01/2013 18:11 CDT ; Life Cycle Status: Active ; Vocabulary: ICD-9-CM ; Comments: - Pure hypercholesterolemia Diagnoses(Active) Chest pain Date: 11/11/2014 ; Diagnosis Type: Reason For Visit ; Confirmation: Complaint of ; Clinical Dx: Chest pain ; Classification: Medical ; Clinical Service: Emergency medicine ; Code: PNED ; Probability: 0 ; Diagnosis Code: [id number] Triage Chief Complaint Description : presents with left posterior shoulder pain since yesterday morning that is intermittet states it started anteriorly yesterday am but now is only in the posterior Information Given By : Patient Accompanied By : Spouse Mode of Arrival ED : Private vehicle Track : Medical Languages : Kosovan Patient Informed of Triage Location : Emergency department Vital Signs Assessed : Yes Treatments Prior to Arrival : None Is Patient Female and 13-50 no hysterectomy : No FAWAD DAS RN - 11/11/2014 10:52 CDT Vital Signs Temperature Core : 36.5 DegC(Converted to: 97.7 DegF) Peripheral Pulse Rate : 62 /min Respiratory Rate : 16 /min SpO2 : 99 % Oxygen Therapy : Room air FAWAD DAS RN - 11/11/2014 10:52 CDT Pain Assessment Pain Symptoms : Yes FAWAD DAS RN - 11/11/2014 10:52 CDT Pain Scale Pain Scale Verbal 0-10 : Open FAWAD DAS RN - 11/11/2014 10:52 CDT Pain Pain Assessment Grid Pain 1 Location : Shoulder Laterality : Left Intensity : 4 Time Pattern : Acute, Intermittent Onset : Gradual Quality : Aching FAWAD DAS RN - 11/11/2014 10:52 CDT Comfort Measures Comfort Measures Grid [place]ill Application : Yes FAWAD DAS RN - 11/11/2014 10:52 CDT ED Physician Notification Time ED Physician Notification Time : 11/11/2014 10:55 CDT FAWAD DAS RN - 11/11/2014 10:52 CDT QUIN DCP GENERIC CODE Tracking Acuity : 3 -Urgent Tracking Group : [facility] ED FAWAD DAS RN - 11/11/2014 10:52 CDT Allergy (As Of: 11/11/2014 10:55:25 CDT) Allergies (Active) lisinopril Estimated Onset Date: Unspecified ; Comments: Comment 1: Tickle in throat x 3 weeks with no other reason ; Created By: JAX DANIEL MD; Reaction Status: Active ; Category: Drug ; Substance: lisinopril ; Type: Allergy ; Updated By: JAX DANIEL MD; Reviewed Date: 11/11/2014 10:55CDT ID Screen Drug Resistant Organism : No Travel Within Last 21 Days : No FAWAD DAS RN - 11/11/2014 10:52 CDT Immunizations Immunizations Current : Yes FAWAD DAS RN - 11/11/2014 10:52 CDT Source: [employer] Document Id: [id number] CDT!45 documented in this encounter Miscellaneous Notes Miscellaneous - Conversion, Historical Provider Ser - 11/11/2014 12:00 PM CDT Coding Summary-Paper Based CODING DATE: 11/21/2014 FINAL [facility] STATUS: * Discharged to Home or Self Care PAYOR: Medicare ADMIT DX: 786.50 Unspecified Chest Pain REASON FOR VISIT DX: FINAL DX: PRINCIPAL: 786.59 Other Chest Pain SECONDARY: 300.02 Generalized Anxiety Disorder 401.9 Unspecified Essential Hypertension PROCEDURES DOCTOR NAME DATE NOTE: The code number assigned matches the documented diagnosis and / or procedure in the patient's chart. However, the narrative phrase printed from the coding software may appear abbreviated, or result in slightly different terminology. Coded By: MARCUS ROLDAN Date Saved: 11/21/2014 03:23 pm Source: [employer] Document Id: [id number] Miscellaneous - Fawad Das R.N. - 11/11/2014 11:59 AM CDT Valuables/Belongings Valuables/Belongings Entered On: 11/11/2014 11:59 CDT Performed On: 11/11/2014 11:59 CDT by FAWAD DAS RN Valuables/Belongings Home Medication Disposition : None brought in with patient FAWAD DAS RN - 11/11/2014 11:59 CDT [facility] Document Id: [id number] CDT!3 Miscellaneous - Fawad Das RMatti - 11/11/2014 10:45 AM CDT Facility Charge Ticket 2.0 11.0 DX Facility Charge Ticket 2.0 11.0 DX Entered On: 11/11/2014 11:59 CDT Performed On: 11/11/2014 10:45 CDT by FAWAD DAS RN Facility Charge Ticket 2.0 11.0 DX ED Other Charges : Standard ED Encounter TVL Level Translated RTF : Chest pain TVL:5 TVL Level for Facility Charge Ticket : Level 5 Arrival Mode Calc : 1 Mode of Arrival ED : Private vehicle [place] Mode of Arrival Interpreted : Standard [place] Process Management : None [place] Order Management : None 30 Minutes Critical Care : No Nursing Notes RTF : Triage Forms ED Triage Assessment,11/11/14 10:52,FAWAD DAS RN Nursing Notes ED Primary Assessment,11/11/14 11:08,FAWAD DAS RN [place] Nursing Assessment : Triage and 1-2 nursing assessments [place] Disposition : Discharge Disposition RTF : discharge [place] Total Points with Diagnosis Control : 11 [place] Visit Level : 02221 Level 4 Treatments Prior to Arrival : None FAWAD DAS RN - 11/11/2014 11:59 CDT [facility] Document Id: [id number] CDT!18 documented in this encounter Plan of Treatment Not on filedocumented as of this encounter Visit Diagnoses Not on filedocumented in this encounter
--- OUTSIDE RECORDS SUMMARY | 2022-01-04 09:39 | XMS_ITS | Encounter Summary ---
:[address] [facility] Address [address] [place] [address] Care Team Providers Name Role Phone Unavailable Primary Care Provider Unavailable Encounter Details Date Type Department Care Team Description 09/19/2014 Hospital Encounter HX [facility] Mago coyle M.D. [id number] [place] [phone] (Wo rk) Social History Tobacco Use Types Packs/Day Years Used Date Smoking Tobacco: Never Assessed Sex Assigned at Date Recorded Not on file documented as of this encounter Last Filed Vital Signs Vital Sign Reading Time Taken Comments Blood Pressure 146/41 09/19/2014 9:03 AM CDT Pulse 66 09/19/2014 9:03 AM CDT Temperature - - Respiratory Rate 16 09/19/2014 8:07 AM CDT Oxygen Saturation - - Inhaled Oxygen Concentration - - Weight 56.9 kg (125 lb 7.1 oz) 09/19/2014 8:07 AM CDT Height 162 cm (5' 3.78) 09/19/2014 9:03 AM CDT Body Mass Index 21.68 09/19/2014 8:07 AM CDT documented in this encounter Medications at Time of Discharge Medication Sig Dispensed Refills Start Date End Date aspirin [address] tablet Take 1 tablet by 0 201401/21/2019 mouth daily. biotin 10,000 mcg Take by mouth daily. 0 08/26/19 15 05/30/2018 tablet,disintegrating CALCIUM CARB/VIT Take by mouth daily. 0 1 01/21/2019 D3/MINERALS (CALCIUM-VITAMIN D ORAL) [id number] Take 1 capsule by 0 011 05/30/2018 oil 1,400 mg/5 mL liquid mouth daily. documented as of this encounter Progress Notes Mago Hermosillo M.D. - 09/19/2014 11:20 AM CDT Clinic Full Note CHIEF COMPLAINT/REASON FOR VISIT Biopsy HISTORY OF PRESENT ILLNESS Juan J presents with her today for a punch biopsy of a lesion on her chest. She has also noted a spot on her forehead that is not going away. Patient states that her cough is better since changing to the Losartan. Patient is also concerned because she has been more anxious over the past few months. When it comesit can last all day. She recently had family visiting and this exacerbated things. Patient notes that these symptoms have been worse since she found out that her heart condition has worsened. Family has also been concerned because patient's memory has been worse lately. reports that patient isforgetful and will forget where she puts things down. He does agree that this has been worse since she has been more anxious. Patient feels like her memory is about the same. Family also notes that patient repeats herself frequently. She has never been on anything for anxiety in the past. She feels like her mood is otherwise okay. MEDICATIONS aspirin 81 mg oral tablet, 81 mg, 1 tab(s), PO, Daily atenolol 50 mg oral tablet, 50 mg, 1 tab(s), PO, Daily, 3 refills biotin, 10,000 mcg, PO, Daily Biotin Forte oral tablet, 10,000 mcg, PO, Daily Calcium 600+D, 1 tab, PO, Daily colchicine 0.6 mg oral tablet, 0.6 mg, 1 tab(s), at the first sign of a gout flare followed by 0.6 mg one hour later, PO, q1hr, PRN, 3 refills, * Fish Oil oral capsule, 1 cap(s), PO, Daily hydrochlorothiazide 25 mg oral tablet, 12.5 mg, 0.5 tab(s), PO, Daily, 3 refills Indocin 50 mg oral capsule, 50 mg, 1 cap(s), Take with food, PO, 3xDay, PRN, 0 refills losartan 100 mg oral tablet, 100 mg, 1 tab(s), Allergic to lisinopril, PO, Daily, 3 refills * indicates non-compliance ALLERGIES lisinopril PAST MEDICAL HISTORY Chronic Gout NOS Hypertension Pure Hypercholesterolemia Historical Tick Bite PROCEDURES/SURGICAL HISTORY Colonoscopy (08/28/2013), Echocardiogram (06/06/2013), Colonoscopy (11/08/2006), HC COLONOSCOPY W SNARE REMOVAL TUMOR/POLYP/LESION - 11/08/06 (11/08/2006), Hysterectomy (1975), C TOTAL ABDOM HYSTERECTOMY - 1969's - Hysterectomy, Total Abdominal (bleeding) - benign (). SOCIAL HISTORY Date Time: 09/19/2014 08:07 Tobacco: Smoking Status: No Results Found Exposure: No Results Found Alcohol: Use: Yes Recreational Drugs: Use: None Type: No Results Found FAMILY HISTORY Mother ( at 91 year(s)):Positive: Diabetes mellitus; Hypertension Father ( at 76 year(s)):Positive: Alzheimer's disease; Hypertension Brother: Negative: Son:Positive: Hypertension SYSTEMS REVIEW As per HPI. VITAL SIGNS T: 36.4 ??C (Core) HR: 66 RR: 16 BP: 146 / 41 SpO2: 97% HT: 162.0 cm WT: 56.9 kg BMI: 21.68 PHYSICAL EXAMINATION GENERAL: Patient is alert and oriented in no acute distress. SKIN: There continues to be a large flat brown colored lesion on patient's chest that has 1 raised area in its interior. To her right upper forehead along the hairline there are also two rough lesions. PSYCHIATRIC: Mood is described as anxious. Affect is mood congruent. Thought process appears linearand goal directed. Insight judgment appear adequate. Speech is of regular rate and rhythm. PROCEDURE: Punch biopsy to chest and cryotherapy to forehead. The procedure was discussed with the patient including indications as well as risk of infection, bleeding, and scarring. Patient voiced understanding. Consent was signed. [place] protocol was followed. Following this patient was placed in a reclined position. The skin over the flat lesion was cleansed with alcohol. It was than anesthetized with 1% lidocaine with epinephrine. Following this a 3 mm punch was used to obtain a biopsy. Tissue was placed in the pathology jar. There was no bleeding. Patient tolerated the procedure well. IMPRESSION/REPORT/PLAN 1. Anxiety NOS Patient is having daily symptoms of anxiety which have been exacerbated by her recent health problems. Patient and I discussed that she would do best on a preventive medication such as an SSRI. We reviewed that these medicines can take a couple weeks to kick in and they can have associated side effects. We are going to start at a low dose of Zoloft 25 mg daily. We will plan on seeing patient back in2 to 4 weeks. She also has questions about how active she can be and I encouraged her to be as active as she can. I do not want her heart problems to limit her unnecessarily. We also discussed that anxiety problems can cause memory issues. We need to treat the anxiety and then we can further assess ifthe memory problems continue. Ordered: OV Est Pt Level 4 - 69254 - 25 min 2. Tumor Skin Uncertain Behavior We obtained a punch biopsy today. This was sent to pathology. She will be notified of the results. Ordered: OV Est Pt Level 4 - 25223 - 25 min 3. Keratosis Actinic (AK) We froze the 2 lesions on her forehead which were likely actinic keratoses. Ordered: OV Est Pt Level 4 - 89961 - 25 min Hypertension Blood pressure acceptable for age. Medications were refilled. Orders: atenolol, 50 mg = 1 tab(s), PO, Daily, high blood pressure, # 90 tab(s), 3 Refill(s), Pharmacy: [facility] hydrochlorothiazide, 12.5 mg = 0.5 tab(s), PO, Daily, high blood pressure, # 45 tab(s), 3 Refill(s), Maintenance, Pharmacy: [facility] losartan, 100 mg = 1 tab(s), PO, Daily, high blood pressure, # 90 tab(s), 3 Refill(s), Maintenance,Pharmacy: [facility] sertraline, 25 mg = 1 tab(s), PO, Daily, anxiety, # 30 tab(s), 11 Refill(s), Maintenance, Pharmacy:[facility] Surg Path, Level IV, Wet [facility] 2180 Electronically Signed By: MAGO GOLDEN MD On: 09/19/2014 11:23 AM Source: [facility] POWERCHART Document Id: [id number] documented in this encounter Miscellaneous Notes Miscellaneous - Mago Hermosillo M.D. - 09/23/2014 5:14 PM CDT Results Notification Document Contains Addenda Addendum by JUAN J OG LPN on 29 September 2014 10:05:29 CDT Info below printed and mailed to pt today. Addendum by JENAE HENDERSON LPN on 25 September 2014 09:51:34 CDT Message left for patient to call back for update From: MAGO GOLDEN MD To: [facility] Nurse Ghanshyam; Sent: 09/23/2014 17:14:32 CDT Show up: 09/23/2014 17:14:00 CDT Subject: Results Notification Please let patient know her biopsy came back showing a solar lentigo which is not cancer. We do not need to do anything further unless it changes in some way. Thanks, Mago Results: Date Result Name Value 09/19/2014 08:50 Surg IV Accn-Cabrera [id number] 09/19/2014 08:50 Surg IV Addr-Cabrera See Comment 09/19/2014 08:50 Surg IV FnlDiag-Cabrera See Comment 09/19/2014 08:50 Surg IV Ref-Cabrera See Comment 09/19/2014 08:50 Surg IV SgnPath-Cabrera See Comment 09/19/2014 08:50 Surg IV Ts Desc-Cabrera See Comment Source: [facility] POWERCHART Document Id: [id number] Miscellaneous - Mellisa Gonzalez L.PKaiNKai - 09/19/2014 9:03 AM CDT Ambulatory Vitals Height Weight Ambulatory Vitals Height Weight Entered On: 09/19/2014 9:03 CDT Performed On: 09/19/2014 9:03 CDT by MELLISA GONZALEZ LPN Vitals/Ht/Wt Peripheral Pulse Rate : 66 /min Systolic Blood Pressure : 146 mmHg (HI) Diastolic Blood Pressure : 41 mmHg (<LLOW) NIBP Mean : 76 mmHg BP Location : Left upper extremity Blood Pressure Cuff Size : Regular SpO2 : 97 % Height : 162.0 cm(Converted to: 5 ft 4 inch(es), 64 inch(es)) MELLISA GONZALEZ LPN - 09/19/2014 9:03 CDT Source: [facility] Document Id: [id number] CDT!10 Miscellaneous - Mellisa Gonzalez L.P.N. - 09/19/2014 8:53 AM CDT Ambulatory Vitals Height Weight Ambulatory Vitals Height Weight Entered On: 09/19/2014 8:54 CDT Performed On: 09/19/2014 8:53 CDT by MELLISA GONZALEZ LPN Vitals/Ht/Wt Peripheral Pulse Rate : 62 /min Systolic Blood Pressure : 156 mmHg (HI) Diastolic Blood Pressure : 40 mmHg (<LLOW) NIBP Mean : 79 mmHg SpO2 : 97 % Oxygen Therapy : Room air Height : 162.0 cm(Converted to: 5 ft 4 inch(es), 64 inch(es)) MELLISA GONZALEZ LPN - 09/19/2014 8:53 CDT Source: [facility] Document Id: [id number] CDT!9 Miscellaneous - Mago Hermosillo M.D. - 09/19/2014 8:47 AM CDT Ambulatory Patient Summary [address] [place] [id number] Visit Information Name: JUAN J DUENAS [facility] Number: [id number] Current Date: 09/19/2014 08:47:03 Physicians Attending Provider: MAGO GOLDEN MD Primary Care Provider: MAGO GOLDEN MD JUAN J DUENASE has been given the following list of [...] tablet) 1 Tablet(s), Oral, once a day calcium-vitamin D (Calcium 600+D) 1 tab, Oral, once a day *colchicine (colchicine 0.6 mg oral tablet) 1 Tablet(s), Oral, every hour as needed for gout pain atthe first sign of a gout flare followed by 0.6 mg one hour later hydrochlorothiazide (hydrochlorothiazide 25 mg oral tablet) 0.5 Tablet(s), Oral, once a day indomethacin (Indocin 50 mg oral capsule) 1 cap, Oral, three times a day as needed for Gout pain Take with food losartan (losartan 100 mg oral tablet) 1 Tablet(s), Oral, once a day Allergic to lisinopril multivitamin (Biotin Forte oral tablet) 10,000 mcg, Oral, once a day omega-3 polyunsaturated fatty acids (Fish Oil oral capsule) 1 cap, Oral, once a day sertraline (Zoloft 25 mg oral tablet) 1 Tablet(s), Oral, once a day anxiety New Routed to [facility] [address] [address] * You have let us know that you are not taking this medication as listed. Please talk with your primary care provider or the health care provider who prescribed the medication as soon as possible. Stop Taking the Following Medications: Medication list as of 09-19-14 08:47 Attention: If you have any medications at home that are not on this list, DO NOT take them until youcontact your provider for clarification. Give a copy of your medication list to your primary care provider. Update your medication list any time medications or doses are changed and carry your medication list at all times in case of emergency. Electronically Signed By: MAGO GOLDEN MD Signed On:19-SEP-2014 08:46:23 Your Allergies & Intolerances Substance Reaction Symptoms [...] if you dont have one. Go to [email or web address] and click on Create Your Account. Then, follow the directions to complete the online form. Youll be asked for your [facility] number which you can find at the top of this document. Your Goals/Additional instructions: Future Appointment: Rhiannon Carroll, 2-4 weeks, 30 min Lab: _ Radiology: _ Need Prior Auth: _ NO Prior Auth: _ Consult: _ Release of MR_ PHI_ Source: [facility] POWERCHART Document Id: [id number] Miscellaneous - Mago Hermosillo M.D. - 09/19/2014 8:47 AM CDT Ambulatory Discharge Medication List [address] [place] [id number] Visit Information Name: CLAIRE JUAN J RHYS [facility] Number: [id number] Visit Date: 09/19/2014 08:47:02 Attending Provider: MAGO GOLDEN MD Primary Care Provider: MAGO GOLDEN MD JUAN J DUENASONNE has been given the following list of [...] tablet) 1 Tablet(s), Oral, once a day calcium-vitamin D (Calcium 600+D) 1 tab, Oral, once a day *colchicine (colchicine 0.6 mg oral tablet) 1 Tablet(s), Oral, every hour as needed for gout pain atthe first sign of a gout flare followed by 0.6 mg one hour later hydrochlorothiazide (hydrochlorothiazide 25 mg oral tablet) 0.5 Tablet(s), Oral, once a day indomethacin (Indocin 50 mg oral capsule) 1 cap, Oral, three times a day as needed for Gout pain Take with food losartan (losartan 100 mg oral tablet) 1 Tablet(s), Oral, once a day Allergic to lisinopril multivitamin (Biotin Forte oral tablet) 10,000 mcg, Oral, once a day omega-3 polyunsaturated fatty acids (Fish Oil oral capsule) 1 cap, Oral, once a day sertraline (Zoloft 25 mg oral tablet) 1 Tablet(s), Oral, once a day anxiety New Routed to [facility] [address] [address] * You have let us know that you are not taking this medication as listed. Please talk with your primary care provider or the health care provider who prescribed the medication as soon as possible. Stop Taking the Following Medications: Medication list as of 09-19-14 08:47 Attention: If you have any medications at home that are not on this list, DO NOT take them until youcontact your provider for clarification. Give a copy of your medication list to your primary care provider. Update your medication list any time medications or doses are changed and carry your medication list at all times in case of emergency. Electronically Signed By: MAGO GOLDEN MD Signed On:19-SEP-2014 08:46:23 Additional Information: Source: [facility] POWERCHART Document Id: [id number] Miscellaneous - Yuridia Aguilar L.P.N. - 09/19/2014 8:07 AM CDT Adult Electronic Scale Assembler And Tester Intake/History Adult Electronic Scale Assembler And Tester Intake/History Entered On: 09/19/2014 8:11 CDT Performed On: 09/19/2014 8:07 CDT by YURIDIA AGUILAR LPN Intake Chief Complaint : Biopsy Onset of Symptoms : chest mole C/O right shoulder blade pain and sob at the palomares Temperature Core : 36.4 DegC(Converted to: 97.5 DegF) (LOW) Peripheral Pulse Rate : 70 /min Respiratory Rate : 16 /min Heart Rhythm : Regular Systolic Blood Pressure : 154 mmHg (HI) Diastolic Blood Pressure : 45 mmHg (<LLOW) NIBP Mean : 81 mmHg BP Location : Left upper extremity Blood Pressure Cuff Size : Large SpO2 : 98 % Oxygen Therapy : Room air Height : 162.0 cm(Converted to: 5 ft 4 inch(es), 64 inch(es)) Actual Weight : 56.9 kg(Converted to: 125 lb 7 oz) Weight Source : Standing scale Dosing Weight Clinic : 56.9 kg Clinic BSA : 1.6 Body Mass Index : 21.68 kg/m2 YURIDIA AGUILAR LPN - 09/19/2014 8:07 CDT General Info Information Given By : Patient Preferred Communication Mode : Verbal Languages : Somali Is Patient Female and 13-50 no hysterectomy : No YURIDIA AGUILAR LPN - 09/19/2014 8:07 CDT Subjective Pain Symptoms : No YURIDIA AGUILAR LPN - 09/19/2014 8:07 CDT Dependent Habits Tobacco Use/Currently Using : No Tobacco Use/Last 12 months : No Tobacco Use/Advised to Quit : No Exposure to Tobacco Smoke : Care provider denies smoking in home, Other: never Smoking Status : Never smoker YURIDIA AGUILAR [facility] - 09/19/2014 8:07 CDT Tobacco Use Grid Last Use : Never YURIDIA AGUILAR [facility] - 09/19/2014 8:07 CDT Alcohol Use : Yes YURIDIA AGUILAR [facility] - 09/19/2014 8:07 CDT Caffeine Use Grid Caffeine Use : Current Type : Coffee Frequency : Daily Amount : 2 YURIDIA AGUILAR [facility] - 09/19/2014 8:07 CDT Recreational Drug Use Grid Drug Use : None YURIDIA AGUILAR [facility] - 09/19/2014 8:07 CDT Source: [facility] POWERCHART Document Id: [id number] CDT!47 documented in this encounter Plan of Treatment Not on filedocumented as of this encounter Procedures Procedure Name Priority Date/Time Associated Diagnosis Comme [facility] SURGICAL PATHOLOGY Routine 09/19/2014 8:50 AM Res ults for this CDT procedure are i n the results section. documented in this encounter Results Pathology Anatpath Wet Tissue (09/19/2014 8:50 AM CDT) [facility] Method Time Signature HXSurg IV [id number] POWERCHART [facility] HXSurg IV See Comment POWERCHART [facility] Comment: RESULT: Mago Golden M.D. HXSurg IV [facility] See Comment POWERCHA RT Comment: [address] [place] [address] SLIDE DISPOSITION: HXSurg IV [facility] See Comment POWER CHART Comment: [id number] A1 A. ??Received in formalin labeled with t he patient's name and and lab eled as upper chest is a 0.3 x 0.2 x 0.2 cm portion of skin. ??Th ere is a park-brown pigmentation diffusely involved on the s kin surface. The specimen is submitted en toto in cassette A1. Part A: ??Upper chest, Skin Biopsy 1 Up Chest Frank Wheeler M.D. XRSR Path HXSurg IV [facility] See Comment POWER CHART Comment: Skin, upper chest, punch biopsy: ??Solar lentigo. Seen in consultation with Dr. Frank Wheeler. Participated in interpretation: ??Santiago Lester D.O. [phone]. HXSurg IV [facility] See Comment POWER CHART Comment: RESULT: 09/23/2014 17:07 Interpreted by: Yaya Gallego M.D. Report electronically signed by Yaya carr M.D. Transcribed by: [email or web address] 09/23/2014 14:49:00 Test Performed by: [place] [address] [employer]: Luis Armando Cabrera II, M.D., Ph.D. Specimen (Source) Anatomical Collection Method Collection Time Re ceived Time Location / / Volume Laterality Tissue 09/19/2014 8:50 AM CDT Mago Gonzales M.D. LAB SURG PATH ORDERABLE S Performing Organization Address City/State/ZIP Code Phon e Number POWERCHART documented in this encounter Visit Diagnoses Not on filedocumented in this encounter
--- OUTSIDE RECORDS SUMMARY | 2022-01-04 09:39 | XMS_ITS | Encounter Summary ---
:[address] [facility] Address [address] [place] [address] Care Team Providers Name Role Phone Unavailable Primary Care Provider Unavailable Encounter Details Date Type Department Care Team Description 09/25/2014 Hospital Encounter HX [facility] Whit Singh M.D. [address] [place], [place] [phone] (Wo rk) Social History [...] 0 1 01/21/2019 D3/MINERALS (CALCIUM-VITAMIN D ORAL) [id number] Take 1 capsule by 0 011 05/30/2018 oil 1,400 mg/5 mL liquid mouth daily. documented as of this encounter Nursing Notes Batsheva Newby R.N. - 09/26/2014 9:00 AM CDT labs Email received from Dr. Singh. Patient telephoned and updated. She will try to eat a banana everyday per request of Dr. Tilbury. K level was 3.6. Electronically Signed By: BATSHEVA NEWBY RN On: 09/26/2014 09:02 AM Modified by and Electronically Signed by: BATSHEVA NEWBY RN On: 09/26/2014 09:02 AM Source: [facility] POWERCHART Document Id: [id number] documented in this encounter Plan of Treatment Not on filedocumented as of this encounter Procedures Procedure Name Priority Date/Time Associated Comments Diagnosis BUN (BLOOD UREA Routine 09/25/2014 10:30 AM Resul ts for this NITROGEN), S/P CDT procedure are in the results section. SODIUM, S/P Routine 09/25/2014 10:30 AM Results for this CDT procedure are i n the results section. POTASSIUM, S/P Routine 09/25/2014 10:30 AM Result s for this CDT procedure are i n the results section. CREATININE WITH Routine 09/25/2014 10:30 AM Resul ts for this EGFR, S/P CDT procedure are i n the results section. documented in this encounter Results BUN (Blood Urea Nitrogen) (09/25/2014 10:30 AM CDT) P athologist Signature BUN (Blood Urea 16 7 - 18 MGDL POWERCHART Nitrogen), S Specimen (Source) Anatomical Collection Method Collection Time Re ceived Time Location / / Volume Laterality Blood 09/25/2014 10:30 AM CDT Whit Singh M.D. LAB BLOOD ADD-ON Performing Organization Address City/State/ZIP Code Phon e Number POWERCHART Creatinine with eGFR (09/25/2014 10:30 AM CDT) athologist Signature Creatinine 0.89 0.60 - POWERCHART 1.30 MGDL HXeGFR (MDRD) >60 >=60 POWERCHART [id number] eGFR >60 >=60 POWERCHART Black/ [id number] [place] Specimen (Source) Anatomical Collection Method Collection Time Re ceived Time Location / / Volume Laterality Blood 09/25/2014 10:30 AM CDT Whit Singh M.D. LAB BLOOD ADD-ON Performing Organization Address City/State/ZIP Code Phon e Number POWERCHART Potassium (09/25/2014 10:30 AM CDT) P athologist Signature Potassium, S 3.6 3.6 - 4.8 POWERCHART MMOLL Specimen (Source) Anatomical Collection Method Collection Time Re ceived Time Location / / Volume Laterality Blood 09/25/2014 10:30 AM CDT Whit Singh M.D. LAB BLOOD ADD-ON Performing Organization Address City/State/ZIP Code Phon e Number POWERCHART (ABNORMAL) Sodium (09/25/2014 10:30 AM CDT) P athologist Signature Sodium, S 132.1 (L) 135.0 - POWERCHART 145.0 MML Specimen (Source) Anatomical Collection Method Collection Time Re ceived Time Location / / Volume Laterality Blood 09/25/2014 10:30 AM CDT Whit Singh M.D. LAB BLOOD ADD-ON Performing Organization Address City/State/ZIP Code Phon e Number POWERCHART documented in this encounter Visit Diagnoses Not on filedocumented in this encounter
--- OUTSIDE RECORDS SUMMARY | 2022-01-04 09:39 | XMS_ITS | Encounter Summary ---
:1935 Author Organization [facility] Address [address] [place] [address] Care Team Providers Name Role Phone Unavailable Primary Care Provider Unavailable Encounter Details Date Type Department Care Team Description 09/08/2014 Hospital Encounter HX [facility] Aleisha coyle M.D. [id number] [place] [phone] (Wo rk) Social History Tobacco Use Types Packs/Day Years Used Date Smoking Tobacco: Never Assessed Sex Assigned at Date Recorded Not on file documented as of this encounter Last Filed Vital Signs Vital Sign Reading Time Taken Comments Blood Pressure 142/44 09/08/2014 2:12 PM CDT Pulse 67 09/08/2014 2:12 PM CDT Temperature - - Respiratory Rate - [...] 0 1 01/21/2019 D3/MINERALS (CALCIUM-VITAMIN D ORAL) [id number] Take 1 capsule by 0 011 05/30/2018 oil 1,400 mg/5 mL liquid mouth daily. documented as of this encounter Progress Notes Sukhjinder Talbot M.D. - 09/08/2014 1:50 PM CDT [id number] The patient came to the office on September 01, 2014 complaining of a constant tickle in her throat causing her to cough. She emphatically states that she never had cold ever. But 3 weeks ago, she developeda tickle feeling in the throat and that seems to be increasing and therefore had to come. Patient has known aortic valve disease with moderate to severe aortic regurgitation and moderate left ventricular enlargement as noted on the echocardiogram not too long ago. She had been to the emergency room on August 03, 2014 for noncardiac chest pain. A chest x-ray was taken at that time, which was normal and unchanged compared to April 26, 2013. I did see the patient after that on August 04, 2014 and at that time, she did not have any cough or tickle in the throat. On August 28, Dr. Tod Singh, full stack php developer saw the patient and noted that the echocardiogram had changed and they planned to repeat the echocardiogram in 9 months. He also noted that patient's pulse rate is slow and at some point,we might have to stop the atenolol. He increased the dose of the lisinopril a little bit to 30 mg and decreased the hydrochlorothiazide to 12.5 mg and wants to repeat the echocardiogram in 9 months. Atthat time, patient did not have this tickle in the throat. SYSTEMS REVIEW Completely negative. MEDICATIONS Please see the chart. PHYSICAL EXAMINATION GENERAL: Patient is well developed, well nourished lady who is in no acute distress. VITAL SIGNS: The blood pressure is 142/43, temperature 36.4, pulse rate 64. She is still on atenolol. Respirations 16. Weight 57.3 kg. Oxygen saturation on room air 97%. HEENT: Normocephalic scalp. Ears are normal. Eyes appear normal. Oropharynx is normal. There is no postnasal dripping, etc. No tenderness over the sinuses and no increased pressure in the middle ears. NECK: Supple. Neck veins are not engorged and thyroid is not enlarged. No adenopathy in the neck. CHEST: Bilaterally symmetrical. Has got a grade 3 x 6 aortic diastolic murmur. Also has a short systolic murmur. LUNGS: Clear with no rales or rhonchi. ABDOMEN: Negative. There is no tenderness over the gallbladder region or stomach. LOWER EXTREMITIES: Negative. IMPRESSION/REPORT/PLAN 1. Throat irritation, most likely due to lisinopril. 2. So considered allergy to lisinopril. 3. Aortic regurgitation, moderate to severe. Moderate left ventricular enlargement. Patient had ultrasound of the gallbladder in the past and that was negative. I advised patient to discontinue the lisinopril. We will change it to losartan 100 mg daily. She will keep her appointment with Dr. Aleisha Vieyra. I reassured her that her symptoms of tickle will resolve in 7 to 10 days' time. Her creatinine is now at the upper limit of normal at 1.14. Childcare Administrator will reduce her hydrochlorothiazide. So she should drink a little bit more fluid, total of about 80 ounces mixed. Her liver tests were completely normal on August 01. Electrolytes were normal. The potassium was on the lower side at 3.6. Hemogram was normal. I did tell her that her kidney function is reduced. EGFR for kidney function was 59 in November 2012 and is gradually going down and on August 01 was 46. Medications might have changed if increasing the fluid does not improve that, so needs a repeat renal tests on her next visit. Sukhjinder Talbot M.D./dayanna Electronically Signed By: SUKHJINDER TALBOT MD On: 09/17/2014 03:12 PM Source: [facility] [place] MHSDOLBEYNONRADSYS Document Id: [id number] documented in this encounter Miscellaneous Notes Miscellaneous - Angelia Gonzalez, L.P.N. - 09/08/2014 2:12 PM CDT Ambulatory Vitals Height Weight Ambulatory Vitals Height Weight Entered On: 09/08/2014 14:13 CDT Performed On: 09/08/2014 14:12 CDT by ANGELIA GONZALEZ DERRICK WORKER Vitals/Ht/Wt Peripheral Pulse Rate : 67 /min Systolic Blood Pressure : 142 mmHg (HI) Diastolic Blood Pressure : 44 mmHg (<LLOW) NIBP Mean : 77 mmHg BP Location : Left upper extremity Blood Pressure Cuff Size : Regular SpO2 : 99 % Oxygen Therapy : Room air ANGELIA GONZALEZ LPN - 09/08/2014 14:12 CDT Source: [employer] Document Id: [id number] CDT!10 Miscellaneous - Angelia Gonzalez LKaiP.N. - 09/08/2014 1:58 PM CDT Ambulatory Vitals Height Weight Ambulatory Vitals Height Weight Entered On: 09/08/2014 14:00 CDT Performed On: 09/08/2014 13:58 CDT by ANGELIA GONZALEZ LPN Vitals/Ht/Wt Peripheral Pulse Rate : 69 /min Systolic Blood Pressure : 155 mmHg (HI) Diastolic Blood Pressure : 45 mmHg (<LLOW) NIBP Mean : 82 mmHg BP Location : Left upper extremity Blood Pressure Cuff Size : Regular SpO2 : 97 % Oxygen Therapy : Room air ANGELIA GONZALEZ LPN - 09/08/2014 13:58 CDT Source: [employer] Document Id: [id number] CDT!10 documented in this encounter Plan of Treatment Not on filedocumented as of this encounter Visit Diagnoses Not on filedocumented in this encounter
--- OUTSIDE RECORDS SUMMARY | 2022-01-04 09:39 | XMS_ITS | Encounter Summary ---
:1935 [facility] Address [address] [place] [address] Care Team Providers Name Role Phone Unavailable Primary Care Provider Unavailable Encounter Details Date Type Department Care Team Description 10/03/2014 Hospital Encounter HX [facility] ED [place]ucho [place] [address] Social History Tobacco Use Types Packs/Day Years Used Date Smoking Tobacco: Never Assessed Sex Assigned at Date Recorded Not on file documented as of this encounter Last Filed Vital Signs Vital Sign Reading Time Taken Comments Blood Pressure 181/48 10/03/2014 8:20 AM CDT Pulse 66 10/03/2014 8:20 AM CDT Temperature - - Respiratory Rate 16 10/03/2014 7:39 AM CDT Oxygen Saturation - - Inhaled Oxygen Concentration - - Weight - - Height 162 cm (5' 3.78) 10/03/2014 8:20 AM CDT Body Mass Index - - documented in this encounter Discharge Summaries Fawad Ruiz R.N. - 10/03/2014 1:16 PM CDT ED Discharge Instructions [address] [address] Name: JUAN J RANGEL Date of : 1935 12:00 AM Visit Date: 10/03/2014 7:32 AM [facility] Number: [id number] Address: [address] [place] [id number] Primary Care Provider: MAGO GOLDEN MD IMPORTANT: [facility] in [place] would like to thank you for allowing us to assist you with your healthcare needs. The following includes patient education materials and informationregarding your injury/illness. Diagnosis: Pain Chest Atypical Follow-Up Instructions: With: Address: When: MAGO GOLDEN [address] [place] [address] [place] [address] [phone] Business (1) Within 1 week Comments: Your Upcoming Appointments: Date Time Location Provider 10/16/2014 07:15 [facility] Family [facility] Mago Carroll MD Patient Education Materials: Chest Pain, Uncertain Cause Chest pain can happen for a number of reasons. Sometimes the cause can not be determined. If your condition does not seem serious, and your pain does not appear to be coming from your heart, your doctor may recommend watching it closely. Sometimes the signs of a serious problem take more time to appear. Therefore, watch for the warning signs listed below. Home care After your visit, follow these recommendations: ?? Rest today and avoid strenuous activity. ?? [id number] any prescribed medicine as directed. Follow-up care Follow up with your doctor or this facility as instructed or if you do not start to feel better within 24 hours. Call 911 Get immediate medical attention if any of the following occur: ?? A change in the type of pain: if it feels different, becomes more severe, lasts longer, or beginsto spread into your shoulder, arm, neck, jaw or back ?? Shortness of breath or increased pain with breathing ?? Weakness, dizziness, or fainting ?? Rapid heart beat Get prompt medical attention Call your doctor right away if any of the following occur: ?? Cough with dark colored sputum (phlegm) or blood ?? Fever of 100.4?F (38?C) or higher, or as directed by your health care provider ?? Swelling, pain or redness in one leg ?? [phone] [facility], [address] [place] [address], [place] [address]. All rights reserved. This information is not [...] if you dont have one. Go to [email or web address] and click on Create Your Account. Then, follow the directions to complete the online form. Youll be asked for your [facility] number which you can find at the top of this document. ED Tests and Procedures: Order Status Oxygen - ED Ordered Basic Metabolic Panel Completed CBC (includes Auto Differential) Completed Troponin T Completed XR Chest 2 Views Completed Automated Diff-5 Part Completed Discharge Prescriptions & Home Medications: Medication/Strength Dose Route Frequency Indications/Special Instructions/Comments/Notes losartan (losartan 100 mg oral tablet) 100 mg Oral once a day high blood pressure hydrochlorothiazide (hydrochlorothiazide 25 mg oral tablet) 12.5 mg Oral once a day high blood pressure atenolol (atenolol 50 mg oral tablet) 50 mg Oral once a day high blood pressure sertraline (Zoloft 25 mg oral tablet) 25 mg Oral once a day anxiety multivitamin (Biotin Forte oral tablet) 10,000 mcg Oral once a day aspirin (aspirin 81 mg oral tablet) 81 mg Oral once a day indomethacin (Indocin 50 mg oral capsule) 50 mg Oral three times a day as needed for Gout pain Take with food calcium-vitamin D (Calcium 600+D) 1 tab [...] alliance party. CLAIRE Calvillo CAROL LAVONNE or responsible alliance party have received this information and my questions have been answered. I have discussed any challenges I see with this plan with the nurse or physician. Patient Signature or Responsible Libertarian/Relationship Date Time Provider Signature Date Time This document has images extracted. Please consider using [employer] for all your patient education needs. Source: [employer] Document Id: [id number] Fawad Ruiz RKaiN. - 10/03/2014 1:16 PM CDT ED Depart Summary [facility] Emergency Department Clinical Discharge Summary PERSON INFORMATION Name JUAN J RANGEL Age 79 Years 1935 12:00 AM Sex Female Language Greenlandic PCP MAGO GOLDEN MD Marital Status N [id number] Visit Id Visit Reason Chest pain; Chest Pain Specialty Enc Type Emergency Med Service Emergency Medicine Referred by Track Group [facility] ED Discharge 10/03/2014 10:00 AM Tracking Id [id number] Checkout 10/03/2014 10:34 AM Checkin 10/03/2014 7:32 AM Acuity 3 -Urgent Dispo Type * Discharged to Home or Self Care Arrival 10/03/2014 7:32 AM Reg Status Complete LOS 000 03:02 Address: [address] [place] [address] [place] [phone] Comment: PROVIDER INFORMATION Provider Role Provider Contact Time LUCHO ROBLES MD ED Provider 10/03/14 07:55 FAWAD RUIZ HAND TOUCH UP PAINTER Nurse 10/03/14 07:55 DIAGNOSIS Pain Chest Atypical Comment: PATIENT EDUCATION INFORMATION Instructions: CHEST PAIN, Uncertain Cause Follow up: With: Address: When: MAGO GOLDEN [address] [place] [address] [place] [phone] Business (1) Within 1 week Comments: [facility] Document Id: [id number] documented in this encounter Medications at Time of Discharge Medication Sig Dispensed Refills Start Date End Date aspirin [address] tablet Take 1 tablet by 0 201401/21/2019 mouth daily. biotin 10,000 mcg Take by mouth daily. 0 08/26/19 15 05/30/2018 tablet,disintegrating CALCIUM CARB/VIT Take by mouth daily. 0 1 01/21/2019 D3/MINERALS (CALCIUM-VITAMIN D ORAL) [id number]-fish Take 1 capsule by 0 011 05/30/2018 oil 1,400 mg/5 mL liquid mouth daily. documented as of this encounter ED Notes Fawad Ruiz RKaiN. - 10/03/2014 1:15 PM CDT ED Pain Assessment ED Pain Assessment Entered On: 10/03/2014 13:15 CDT Performed On: 10/03/2014 13:15 CDT by FAWAD RUIZ RN Pain Assessment Pain Symptoms : No FAWAD RUIZ RN - 10/03/2014 13:15 CDT Source: [employer] Document Id: [id number] CDT!3 Fawad Ruiz RKaiN. - 10/03/2014 1:15 PM CDT ED Disposition Summary ED Disposition Summary Entered On: 10/03/2014 13:16 CDT Performed On: 10/03/2014 13:15 CDT by FAWAD RUIZ HAND TOUCH UP PAINTER Disposition Summary Accompanied By : Alone Mode of Discharge : Ambulatory Transportation : Private vehicle Printed Discharge Instructions Given to Patient : Yes FAWAD RUIZ RN - 10/03/2014 13:15 CDT Source: [facility] Document Id: [id number] CDT!6 Lucho Robles M.D. - 10/03/2014 7:59 AM CDT Chest pain Patient: JUAN J RANGEL Age: 79 years Sex: Female : 1935 Author: LUCHO ROBLES MD Attachments: None Associated Diagnosis: Pain Chest Atypical Basic Information Time seen: Date & time 10/03/2014 07:49:00. History source: Patient, significant other. Arrival mode: Private vehicle. History limitation: None. Additional information: Chief Complaint from Nursing Triage Note : Chief Complaint Description 10/03/2014 7:39 CDT Chief Complaint Description presents with c/o chest pains at 930 last night thathave resolved . History of Present Illness 79 yo F with h/o htn and aortic insufficiency with c/o chest pain. Started last night around 10 p.m.shortly after getting into bed. Pain was right-sided. Described as sharp. At its maximum lasted for approximately 2 minutes. Afterwards for about 1 hour she had some soreness in her right shoulder. No a ssociated shortness of breath or diaphoresis or nausea or vomiting. The pain made her anxious, so she stayed awake for a few hours on the couch. When she told her this morning about her symptoms he advise she called the triage line where she was told to come into emergency department for evaluation. She is currently chest pain free. Has been pain free for approximately 9 hours. This feels very similar to prior episode she has had where she has been seen by cardiology and had a stress echocardiogram, most recently in 2011. Took all of her usual meds with AM including her baby aspirin. Review of Systems Constitutional symptoms: No fever or no chills. Skin symptoms: No rash. Eye symptoms: Vision unchanged. ENMT symptoms: No sore throat. Respiratory symptoms: No shortness of breath. Cardiovascular symptoms: No palpitations or no syncope. Gastrointestinal symptoms: No abdominal pain. Genitourinary symptoms: No dysuria. Musculoskeletal symptoms: No Joint pain. Neurologic symptoms: No headache. Endocrine symptoms: No polyuria. Hematologic/Lymphatic symptoms: Bleeding tendency negative. Health Status Allergies: Allergic Reactions (Selected) Severity Not Documented Lisinopril- No reactions were documented.. Past Medical/ Family/ Social History Medical history: Active Hypertension (401.9): Onset in 1990 at 55 years. Resolved Tick Bite (919.4): Onset on 05/25/2011 at 76 years. Resolved.. Surgical history: Colonoscopy ([id number]) on 08/28/2013 at 78 Years. Echocardiogram ([id number]) on 06/06/2013 at 78 Years. Colonoscopy ([id number]) on 11/08/2006 at 71 Years. Comments: 01/28/2011 08:40 - GINNA TEJADA MD, Dr in [place] One sessile polyp recommended repeat in 5 years [facility] COLONOSCOPY W SNARE REMOVAL TUMOR/POLYP/LESION - 11/08/06 on 11/08/2006 at 71 Years. Hysterectomy ([id number]) in 1975 at 41 Years. C TOTAL ABDOM HYSTERECTOMY - 1969's - Hysterectomy, Total Abdominal (bleeding) - benign on .. Family history: Diabetes mellitus Mother () Hypertension Mother () Father () Son Alzheimer's disease Father () . Physical Examination Vital Signs: Vital Signs 10/03/2014 7:39 CDT Temperature Core 36.8 DegC Apical Heart Rate 65 /min Peripheral Pulse Rate 65 /min Respiratory Rate 16 /min SpO2 99 % , Measurements 10/03/2014 7:55 CDT Height 162 cm Dosing Weight 56.00 kg NA Estimated Weight 56 kg , SpO2 10/03/2014 7:39 CDT SpO2 99 % . General: Alert and no acute distress. Skin: Warm, dry, pink and intact. Head: Normocephalic and atraumatic. Neck: Supple, trachea midline and no tenderness. Eye: Extraocular movements are intact and normal conjunctiva. Ears, nose, mouth and throat: Oral mucosa moist and no pharyngeal erythema or exudate. Cardiovascular: Regular rate and rhythm, No edema and 3/6 systolic murmur over left sternal border. . Respiratory: Lungs are clear to auscultation, respirations are non-labored, breath sounds are equal and Symmetrical chest wall expansion. Chest wall: No deformity. Musculoskeletal: No deformity Gastrointestinal: Soft, Nontender and Non distended. Neurological: Alert and oriented to person, place, time, and situation and No focal neurological deficit observed. Psychiatric: Cooperative, appropriate mood & affect and normal judgment. Medical Decision Making Differential Diagnosis:Anxiety, atypical chest pain, pneumonia, chest wall pain. OrdersLaunch Orders Laboratory: Basic Metabolic Panel (Order Processing): Stat, 10/03/2014 8:01 CDT, Once CBC (includes Auto Differential) (Order Processing): Stat, 10/03/2014 8:01 CDT, Once Troponin T (Order Processing): Stat, 10/03/2014 8:01 CDT, Once Patient Care: ED Chest Pain (Order Processing) Cardiac Monitoring (Order Processing): 10/03/2014 8:01 CDT, Once Pulse Oximetry-ED (Order Processing): 10/03/2014 8:01 CDT Radiology: XR Chest 2 Views (Order Processing): 10/03/2014 8:01 CDT, Chest pain, Stat, Patient Bed, Once, 10/03/2014 8:01 CDT, [facility] ED ED: Oxygen - ED (Order Processing): 10/03/2014 8:01 CDT, Once, Stat, 10/03/2014 8:01 CDT, PRN to keep oxygen saturation above 95%. Diagnostic Tests: EKG - Nurse/Rad (Order Processing): 10/03/2014 8:01 CDT, Once, Current Location. Results review:Lab results : Lab View 10/03/2014 8:10 CDT Hgb 11.7 g/dL LOW Hct 33.8 % LOW WBC 7.7 x10(9)/L RBC 3.89 x10(12)/L LOW MCV 86.9 fL RDW 12.9 % Platelet 367 x10(9)/L Neutro Absolute 4.95 10(9)/L Lymph Absolute 1.49 x10(9)/L Harnett Absolute 0.85 x10(9)/L Eos Absolute 0.32 x10(9)/L Baso Absolute 0.06 x10(9)/L Differential? Auto Sodium Lvl 128.0 mM/L LOW Potassium Lvl 3.6 mmol/L Chloride 96 mmol/L LOW CO2 23.9 mmol/L AGAP 12 mmol/L Glucose Lvl 106 mg/dL Creatinine 0.85 mg/dL EGFR (MDRD) >60 mL/min/1.73m2 EGFR (MDRD) >60 mL/min/1.73m2 BUN 11 mg/dL Calcium Lvl 9.2 mg/dL Troponin-T <0.01 ng/mL . Chest X-Ray: 03-Oct-2014 08:23:00 Exam: Chest-- 2 Views Indications: Chest pain ORIGINAL REPORT - 03-Oct-2014 08:27:00 CA EXAM: Chest 2 views IMPRESSION: Compared to 08/01/2014. No significant interval change. Mild biapical scarring similar to prior exam to include a small nodular opacity overlying the posterior right 4th rib that appears stable dating back to 2011. Tortuous aorta with calcification at the aortic arch. Moderate multilevel degenerative changes of the thoracic spine with subtle thoracolumbar curve. Electronically signed by: Collin Do MD [id number] 03-Oct-2014 08:27 . Impression and Plan Diagnosis Pain Chest Atypical (Discharge, Medical) Atypical pain. Has had negative stress echo in 2011. Advised to f/u with PCP within 1 week to discuss further. Has been persistently mildly hyponatremic, would consider discontinuing HCTZ, but will defer this toher PCP Plan Condition: Unchanged. Disposition: Medically cleared, Discharged: to home. Counseled: Patient, Family, Discussed results and plan with patient in detail and they expressed understanding and agreement.. Electronically Signed By: LUCHO ROBLES MD On: 10/03/2014 09:41 AM Modified by and Electronically Signed by: LUCHO ROBLES MD On: 10/03/2014 08:39 AM Source: [facility] Document Id: [id number]} Fawad Ruiz, RKaiN. - 10/03/2014 7:56 AM CDT ED Primary Assessment Document Has Been Updated ED Primary Assessment Entered On: 10/03/2014 7:57 CDT Performed On: 10/03/2014 7:56 CDT by FAWAD RUIZ RN Reason For Visit (As Of: 10/03/2014 07:57:03 CDT) Problems(Active) Aortic insufficiency (ICD-9-CM :424.1 ) Name of Problem: Aortic insufficiency ; Onset Date: 10/20/2011 ; Recorder: BATSHEVA NEWBY RN; Confirmation: Confirmed ; Classification: Nursing ; Code: 424.1; Contributor System: [employer] ; Last Updated: 12/06/2011 10:38 CDT ; Life Cycle Date: 11/01/2011 ; Life Cycle Status: Active ; Responsible Provider: BATSHEVA NEWBY RN; Vocabulary: ICD-9-CM ; Comments: 12/06/2011 8:34 - RUBENS AGUILAR [employer] unknown date of dx 12/06/2011 10:38 - HUBER CORRALES DNP, JAVA DEVELOPER ARCHITECT stress test Gout NOS (ICD-9-CM :274.9 ) [...] Classification: Medical ; Code: 401.9 ; Contributor System:[facility] ; Last Updated: 10/18/2011 11:58 CDT ; Life Cycle Date: 11/09/2010 ; Life Cycle Status: Active ; Responsible Provider: MAY DAVIDSON LPN; Vocabulary: ICD-9-CM Pure Hypercholesterolemia (ICD-9-CM :272.0 ) Name of Problem: Pure Hypercholesterolemia ; Onset Date: 11/13/2001 ; Confirmation: Confirmed ; Classification: Medical ; Code: 272.0 ; Contributor System: [facility] ; Last Updated: 06/01/2013 18:11 CDT ; Life Cycle Status: Active ; Vocabulary: ICD-9-CM ; Comments: - Pure hypercholesterolemia Diagnoses(Active) Chest pain Date: 10/03/2014 ; Diagnosis Type: Reason For Visit ; Confirmation: Complaint of ; Clinical Dx: Chest pain ; Classification: Medical ; Clinical Service: Emergency medicine ; Code: PNED ; Probability: 0 ; Diagnosis Code: [id number] Triage Mode of Arrival ED : Private vehicle Track : Medical Languages : Greenlandic Treatments Prior to Arrival : None Is Patient Female and 13-50 no hysterectomy : No FLOM, FAWAD A RN - 10/03/2014 7:56 CDT Pain Assessment Pain Symptoms : No FAWAD RUIZ RN - 10/03/2014 7:56 CDT Respiratory Airway : Patent Respirations : Unlabored Respiratory Pattern : Regular FAWAD RUIZ RN - 10/03/2014 7:56 CDT Cardiovascular Heart Rhythm : Regular Skin Color : Normal for ethnicity Skin Description : Dry Skin Temperature : Warm Cardiovascular Detailed Assessment : Yes Monitoring Lead : II FAWAD RUIZ RN - 10/03/2014 7:56 CDT CV Detailed CV Patient Stated Symptoms : Chest pain Cardiac Rhythm : Sinus rhythm Ectopy Frequency : None FAWAD RUIZ RN - 10/03/2014 7:56 CDT Neurological Last Well Time Known : Not applicable Level of Consciousness : Alert Orientation : Oriented x 3 Characteristics of Speech : Appropriate for age FAWAD RUIZ RN - 10/03/2014 7:56 CDT ED Psychosocial Affect/Behavior : Cooperative, Anxious Domestic Abuse Concerns : None Behavioral Health Screen/Safety Assmt : No FAWAD RUIZ RN - 10/03/2014 7:56 CDT Gastrointestinal Nutrition ED : Adequate FAWAD RUIZ RN - 10/03/2014 7:56 CDT Musculoskeletal Fall Prevention Education Provided : Yes FAWAD RUIZ RN - 10/03/2014 7:56 CDT Social Habits Tobacco Use/Currently Using : No Exposure to Tobacco Smoke : Care provider denies smoking in home, Other: never Smoking Status : Never smoker FAWAD RUIZ RN - 10/03/2014 7:56 CDT Alcohol Use Grid Alcohol Use : No FAWAD RUIZ RN - 10/03/2014 7:56 CDT Recreational Drug Use Grid Drug Use : None FAWAD RUIZ RN - 10/03/2014 7:56 CDT Source: [facility] Document Id: [id number] CDT!47 Fawad Ruiz R.N. - 10/03/2014 7:39 AM CDT ED Triage Assessment Document Has Been Updated ED Triage Assessment Entered On: 10/03/2014 7:40 CDT Performed On: 10/03/2014 7:39 CDT by FAWAD RUIZ RN Reason For Visit (As Of: 10/03/2014 07:40:49 CDT) Problems(Active) Aortic insufficiency (ICD-9-CM :424.1 ) [...] dx 12/06/2011 10:38 - HUBER CORRALES DNP, JAVA DEVELOPER ARCHITECT stress test Gout NOS (ICD-9-CM :274.9 ) [...] ; Code: 272.0 ; Contributor System: [facility] ; Last Updated: 06/01/2013 18:11 CDT ; Life Cycle Status: Active ; Vocabulary: ICD-9-CM ; Comments: - Pure hypercholesterolemia Diagnoses(Active) Chest pain Date: 10/03/2014 ; Diagnosis Type: Reason For Visit ; Confirmation: Complaint of ; Clinical Dx: Chest pain ; Classification: Medical ; Clinical Service: Emergency medicine ; Code: PNED ; Probability: 0 ; Diagnosis Code: [id number] Triage Chief Complaint Description : presents with c/o chest pains at 930 last night that have resolved Information Given By : Patient Accompanied By : Spouse Mode of Arrival ED : Private vehicle Track : Medical Languages : Greenlandic Patient Informed of Triage Location : Emergency department Vital Signs Assessed : Yes Treatments Prior to Arrival : None Is Patient Female and 13-50 no hysterectomy : No FAWAD RUIZ RN - 10/03/2014 7:39 CDT Vital Signs Temperature Core : 36.8 DegC(Converted to: 98.2 DegF) Peripheral Pulse Rate : 65 /min Apical Heart Rate : 65 /min Respiratory Rate : 16 /min SpO2 : 99 % Oxygen Therapy : Room air FAWAD RUIZ RN - 10/03/2014 7:39 CDT Pain Assessment Pain Symptoms : FAWAD Hooker RN - 10/03/2014 7:39 CDT ED Physician Notification Time ED Physician Notification Time : 10/03/2014 7:40 CDT FAWAD RUIZ RN - 10/03/2014 7:39 CDT QUIN DCP GENERIC CODE Tracking Acuity : 3 -Urgent Tracking Group : [facility] ED FAWAD RUIZ RN - 10/03/2014 7:39 CDT Allergy (As Of: 10/03/2014 07:40:49 CDT) Allergies (Active) lisinopril Estimated Onset Date: Unspecified ; Comments: Comment 1: Tickle in throat x 3 weeks with no other reason ; Created By: JAX DANIEL MD; Reaction Status: Active ; Category: Drug ; Substance: lisinopril ; Type: Allergy ; Updated By: JAX DANIEL MD; Reviewed Date: 10/03/2014 7:40 CDT ID Screen Drug Resistant Organism : No Travel Within Last 21 Days : No Contact with someone with Ebola : No FAWAD RUIZ RN - 10/03/2014 7:39 CDT Immunizations Immunizations Current : Yes FAWAD RUIZ RN - 10/03/2014 7:39 CDT [facility] Document Id: [id number] CDT!33 documented in this encounter Miscellaneous Notes Miscellaneous - Fawad Ruiz R.N. - 10/03/2014 1:15 PM CDT Valuables/Belongings Valuables/Belongings Entered On: 10/03/2014 13:15 CDT Performed On: 10/03/2014 13:15 CDT by FAWAD RUIZ RN Valuables/Belongings Home Medication Disposition : None brought in with patient FAWAD RUZI RN - 10/03/2014 13:15 CDT Source: [employer] Document Id: [id number] CDT!3 Miscellaneous - Conversion, Historical Provider Ser - 10/03/2014 10:00 AM CDT Coding Summary-Paper Based CODING DATE: 10/09/2014 FINAL [facility] STATUS: * Discharged to Home or Self Care PAYOR: Medicare ADMIT DX: 786.50 Unspecified Chest Pain REASON FOR VISIT DX: 786.50 Unspecified Chest Pain FINAL DX: PRINCIPAL: 786.59 Other Chest Pain SECONDARY: 401.9 Unspecified Essential Hypertension 424.1 Aortic Valve Disorders V58.66 Long-Term (Current) Use of Aspirin V58.69 Long-Term (Current) Use of Other Medications PROCEDURES DOCTOR NAME DATE NOTE: The code number assigned matches the documented diagnosis and / or procedure in the patient's chart. However, the narrative phrase printed from the coding software may appear abbreviated, or result in slightly different terminology. Coded By: MARCUS ROLDAN Date Saved: 10/09/2014 02:58 pm Source: [employer] Document Id: [id number] Miscellaneous - Fawad Ruiz RScott. - 10/03/2014 7:32 AM CDT Facility Charge Ticket 2.0 11.0 DX Facility Charge Ticket 2.0 11.0 DX Entered On: 10/03/2014 13:15 CDT Performed On: 10/03/2014 7:32 CDT by FAWAD RUIZ RN Facility Charge Ticket 2.0 11.0 DX ED Other Charges : Standard ED Encounter TVL Level Translated RTF : Chest pain TVL:5 TVL Level for Facility Charge Ticket : Level 5 Arrival Mode Calc : 1 Mode of Arrival ED : Private vehicle [facility] Mode of Arrival Interpreted : Standard [facility] Process Management : None Order Management RTF : Laboratory Basic Metabolic Panel,10/03/14 08:01,LUCHO ROBLES MD Completed CBC (includes Auto Differential),10/03/14 08:01,LUCHO ROBLES MD Completed Troponin T,10/03/14 08:01,LUCHO ROBLES MD Completed Automated Diff-5 Part,10/03/14 08:12,LUCHO ROBLES MD Completed Xray XR Chest 2 Views,10/03/14 08:01,LUCHO ROBLES MD Completed EKG / Respiratory / Ancillary Oxygen - ED,10/03/14 08:01,LUCHO ROBLES MD Ordered [facility] Order Management : EKG, RT, Ancillary Services, Lab tests, Xray - plain films 30 Minutes Critical Care : No Nursing Notes RTF : Triage Forms ED Triage Assessment,10/03/14 07:39,FAWAD RUIZ RN Nursing Notes ED Primary Assessment,10/03/14 07:56,FAWAD RUIZ RN [facility] Nursing Assessment : Triage and 1-2 nursing assessments [facility] Disposition : Discharge Disposition RTF : discharge [facility] Total Points with Diagnosis Control : 14 [facility] Visit Level : 95382 Level 5 Treatments Prior to Arrival : None FAWAD RUIZ RN - 10/03/2014 13:15 CDT [facility] Document Id: [id number] CDT!19 documented in this encounter Plan of Treatment Not on filedocumented as of this encounter Procedures Procedure Name Priority Date/Time Associated Diagnosis Comme nts AUTOMATED Routine 10/03/2014 8:10 AM Results f or this DIFFERENTIAL, B CDT procedure ar e in the results section. CBC WITH Routine 10/03/2014 8:10 AM Results f or this DIFFERENTIAL, B CDT procedure ar e in the results section. TROPONIN T, 5TH Routine 10/03/2014 8:10 AM Result s for this GEN, P CDT procedure are i n the results section. BASIC METABOLIC Routine 10/03/2014 8:10 AM Result s for this PANEL, S/P CDT procedure are i n the results section. documented in this encounter Results Automated Differential (10/03/2014 8:10 AM CDT) P athologist Signature Absolute 4.95 1.70 - POWERCHART Neutrophils 7.00 109L Lymphocytes 1.49 0.90 - POWERCHART 2.90 X109L Monocytes 0.85 0.30 - POWERCHART 0.90 X109L Eosinophils 0.32 0.05 - POWERCHART 0.50 X109L Absolute 0.06 0.00 - POWERCHART Basophil 0.30 X109L Specimen Anatomical Collection Method Collection Time Receive d Time (Source) Location / / Volume Laterality Blood 10/03/2014 8:10 AM 5 8:10 CDT AM CDT Lucho Robles M.D. LAB BLOOD ADD-ON Performing Organization Address City/State/ZIP Code Phon e Number POWERCHART (ABNORMAL) CBC with Differential (10/03/2014 8:10 AM CDT) Patholo gist Method Time Signature Leukocytes 7.7 3.4 - 10.5 POWERCHART X109L Erythrocytes 3.89 (L) 3.90 - POWERCHART 5.03 [id number] Hemoglobin 11.7 (L) 12.0 - POWERCHART 15.5 GDL Hematocrit 33.8 (L) 34.9 - POWERCHART 44.5 MCV 86.9 82.0 - POWERCHART 98.0 FL HX RDW 12.9 11.9 - POWERCHART 15.5 Platelet Count 367 150 - 450 POWERCHART X109L HXDifferential? Auto POWERCHART Specimen (Source) Anatomical Collection Method Collection Time Re ceived Time Location / / Volume Laterality Blood 10/03/2014 8:10 AM CDT Lucho Robles M.D. LAB BLOOD ADD-ON Performing Organization Address City/State/ZIP Code Phon e Number POWERCHART Troponin T (10/03/2014 8:10 AM CDT) P athologist Signature Troponin T, S <0.01 <=0.01 NGML POWERCHART Comment: 0.03 - 0.1 ng/mL Intermediate Z one Specimen (Source) Anatomical Collection Method Collection Time Re ceived Time Location / / Volume Laterality Blood 10/03/2014 8:10 AM CDT Lucho Robles M.D. LAB BLOOD ADD-ON Performing Organization Address City/State/ZIP Code Phon e Number POWERCHART (ABNORMAL) BMP (Basic Metabolic Panel) (10/03/2014 8:10 AM CDT) Patholo gist Method Time Signature Anion Gap 12 10 - 20 POWERCHART MMOLL BUN (Blood Urea 11 7 - 18 POWERCHART Nitrogen), S MGDL Chloride, S 96 (L) 98 - 107 POWERCHART MMOLL CO2 Total 23.9 23.0 - POWERCHART 29.0 MMOLL Creatinine 0.85 0.60 - POWERCHART 1.30 MGDL Glucose 106 70 - 139 POWERCHART MGDL Calcium, Total, 9.2 8.8 - 10.2 POWERCHART S MGDL Sodium, S 128.0 (L) 135.0 - POWERCHART 145.0 MML Potassium, S 3.6 3.6 - 4.8 POWERCHART MMOLL HXeGFR (MDRD) >60 >=60 POWERCHART [id number] eGFR >60 >=60 POWERCHART Black/ [id number] Uzbek Specimen (Source) Anatomical Collection Method Collection Time Re ceived Time Location / / Volume Laterality Blood 10/03/2014 8:10 AM CDT Lucho Robles M.D. LAB BLOOD ADD-ON Performing Organization Address City/State/ZIP Code Phon e Number POWERCHART documented in this encounter Visit Diagnoses Not on filedocumented in this encounter
--- OUTSIDE RECORDS SUMMARY | 2022-01-04 09:39 | XMS_ITS | Encounter Summary ---
:1935 Author Organization [facility] Address [address] [place] [address] Care Team Providers Name Role Phone Unavailable Primary Care Provider Unavailable Encounter Details Date Type Department Care Team Description 09/03/2014 Hospital Encounter HX [facility] Aleisha coyle M.D. [id number] [place] [phone] (Wo rk) Social History Tobacco Use Types Packs/Day Years Used Date Smoking Tobacco: Never Assessed Sex Assigned at Date Recorded Not on file documented as of this encounter Last Filed Vital Signs Vital Sign Reading Time Taken Comments Blood Pressure 160/58 09/03/2014 5:03 PM CDT Pulse 58 09/03/2014 5:03 PM CDT Temperature - - Respiratory Rate [...] 0 1 01/21/2019 D3/MINERALS (CALCIUM-VITAMIN D ORAL) [id number] Take 1 capsule by 0 011 05/30/2018 oil 1,400 mg/5 mL liquid mouth daily. documented as of this encounter Miscellaneous Notes Miscellaneous - Janeth Og L.P.N. - 09/03/2014 5:11 PM CDT *General Message Document Contains Addenda Addendum by ALEISHA GOLDEN MD on 04 September 2014 19:08:23 CDT From: ALEISHA GOLDEN MD To: JANETH OG LPN; Sent: 09/04/2014 19:08:23 CDT Subject: RE: *General Message Agree with plan. From: JANETH OG LPN To: ALEISHA GOLDEN MD; Cc: BATSHEVA NEWBY RN; Sent: 09/03/2014 17:11:32 CDT Subject: *General Message Pt came in at 4:45 pm for bp check 173/43, 175/43, 160/58. 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 She forgot to take the atenolol for 2 days and found a half tab of HCTZ on the counter but she said she had taken it. She became dizzy beforelunch today and then was lying down all afternoon. made her come in for a check Per Dr. Mak pt was ok to go home and continue with taking her meds and to see how she felt inthe morning. If any problems tonight to be sure and call and talk with a nurse or come to the ED. They are in agreement with this. Source: [facility] POWERCHART Document Id: [id number] Electronically signed by Leo, [facility] Signal Maintainer Helper [id number] at 07/31/2016 5:02 PM CDT Miscellaneous - Janeth Og L.P.N. - 09/03/2014 5:03 PM CDT Ambulatory Vitals Height Weight Ambulatory Vitals Height Weight Entered On: 09/03/2014 17:04 CDT Performed On: 09/03/2014 17:03 CDT by JANETH OG LPN Vitals/Ht/Wt Peripheral Pulse Rate : 58 /min (LOW) Systolic Blood Pressure : 160 mmHg (HI) Diastolic Blood Pressure : 58 mmHg NIBP Mean : 92 mmHg BP Location : Left upper extremity Blood Pressure Cuff Size : Regular JANETH OG LPN - 09/03/2014 17:03 CDT Source: [employer] Document Id: [id number] CDT!8 Janeth Roman L.P.N. - 09/03/2014 4:53 PM CDT Ambulatory Vitals Height Weight Ambulatory Vitals Height Weight Entered On: 09/03/2014 16:54 CDT Performed On: 09/03/2014 16:53 CDT by JANETH OG LPN Vitals/Ht/Wt Peripheral Pulse Rate : 60 /min Systolic Blood Pressure : 175 mmHg (>HHI) Diastolic Blood Pressure : 43 mmHg (<LLOW) NIBP Mean : 87 mmHg BP Location : Left upper extremity Blood Pressure Cuff Size : Regular JANETH OG LPN - 09/03/2014 16:53 CDT Source: [employer] Document Id: [id number] CDT!8 Janeth Roman L.P.N. - 09/03/2014 4:51 PM CDT Ambulatory Vitals Height Weight Ambulatory Vitals Height Weight Entered On: 09/03/2014 16:53 CDT Performed On: 09/03/2014 16:51 CDT by JANETH OG LPN Vitals/Ht/Wt Peripheral Pulse Rate : 60 /min Systolic Blood Pressure : 173 mmHg (>HHI) Diastolic Blood Pressure : 43 mmHg (<LLOW) NIBP Mean : 86 mmHg BP Location : Left upper extremity Blood Pressure Cuff Size : Regular JANETH OG LPN - 09/03/2014 16:51 CDT Source: [facility] POWERCHART Document Id: [id number] CDT!8 documented in this encounter Plan of Treatment Not on filedocumented as of this encounter Visit Diagnoses Not on filedocumented in this encounter
--- OUTSIDE RECORDS SUMMARY | 2022-01-04 09:39 | XMS_ITS | Encounter Summary ---
:1935 Author Organization [facility] Address [address] [place] [address] Care Team Providers Name Role Phone Unavailable Primary Care Provider Unavailable Encounter Details Date Type Department Care Team Description 10/16/[address] [facility] Aleisha coyle M.D. [address] [place] [phone] (Wo rk) Social History Tobacco Use Types Packs/Day Years Used Date Smoking Tobacco: Never Assessed Sex Assigned at Date Recorded Not on file documented as of this encounter Last Filed Vital Signs Vital Sign Reading Time Taken Comments Blood Pressure 161/47 10/16/2014 7:51 AM CDT Pulse 82 10/16/2014 7:20 AM CDT Temperature - - Respiratory Rate 18 10/16/2014 7:20 AM CDT Oxygen Saturation - - Inhaled Oxygen Concentration - - Weight 56.4 kg (124 lb 5.4 oz) 10/16/2014 7:20 AM CDT Height 161 cm (5' 3.39) 10/16/2014 7:51 AM CDT Body Mass Index 21.76 10/16/2014 7:20 AM CDT documented in this encounter Medications at Time of Discharge Medication Sig Dispensed Refills Start Date End Date aspirin [address] tablet Take 1 tablet by 0 201401/21/2019 mouth daily. biotin 10,000 mcg Take by mouth daily. 0 08/26/19 15 05/30/2018 tablet,disintegrating CALCIUM CARB/VIT Take by mouth daily. 0 1 01/21/2019 D3/MINERALS (CALCIUM-VITAMIN D ORAL) [id number]-fish Take 1 capsule by 0 011 05/30/2018 oil 1,400 mg/5 mL liquid mouth daily. documented as of this encounter Progress Notes Aleisha Hermosillo M.D. - 10/16/2014 7:49 AM CDT Clinic Full Note CHIEF COMPLAINT/REASON FOR VISIT check up biopsy HISTORY OF PRESENT ILLNESS Janeth presents today to follow up on a new medication. Approximately 1 month ago, we started her onZoloft 25 mg daily for anxiety. Patient does think that her anxiety has been better. She is still anxious 3 to 4 days per week. She does feel like she can calm herself down a little better than before.She denies any side effects with her medications. Her main concern continues to be her heart. She presented to the emergency department on October 03 with chest pain. Ultimately all testing was negative. She reports that she tries to stay active with walking and goldie. I also received another message that her family is concerned about patient's memory and would like further testing done. Patient herself has no concerns about her memory and she reports that family has not shared any concerns with her.Patient also denies any problems with balance or incontinence. MEDICATIONS aspirin 81 mg oral tablet, 81 mg, 1 tab(s), PO, Daily atenolol 50 mg oral tablet, 50 mg, 1 tab(s), high blood pressure, PO, Daily, 3 refills Biotin Forte oral tablet, 10,000 mcg, PO, Daily Calcium 600+D, 1 tab, PO, Daily Fish Oil oral capsule, 1 cap(s), PO, Daily hydrochlorothiazide 25 mg oral tablet, 12.5 mg, 0.5 tab(s), high blood pressure, PO, Daily, 3 refills Indocin 50 mg oral capsule, 50 mg, 1 cap(s), Take with food, PO, 3xDay, PRN, 0 refills losartan 100 mg oral tablet, 100 mg, 1 tab(s), high blood pressure, PO, Daily, 3 refills Zoloft 25 mg oral tablet, 25 mg, 1 tab(s), anxiety, PO, Daily, 11 refills ALLERGIES lisinopril PAST MEDICAL HISTORY Chronic Gout NOS Hypertension Pure Hypercholesterolemia Historical Tick Bite PROCEDURES/SURGICAL HISTORY Colonoscopy (08/28/2013), Echocardiogram (06/06/2013), Colonoscopy (11/08/2006), HC COLONOSCOPY W SNARE REMOVAL TUMOR/POLYP/LESION - 11/08/06 (11/08/2006), Hysterectomy (1975), C TOTAL ABDOM HYSTERECTOMY - 1970's - Hysterectomy, Total Abdominal (bleeding) - benign (). SOCIAL HISTORY Date Time: 10/16/2014 07:20 Tobacco: Smoking Status: Never smoker Exposure: Care provider denies smoking in home, Other: never Alcohol: Use: Yes Recreational Drugs: Use: None Type: No Results Found FAMILY HISTORY Mother ( at 91 year(s)):Positive: Diabetes mellitus; Hypertension Father ( at 76 year(s)):Positive: Alzheimer's disease; Hypertension Brother: Negative: Son:Positive: Hypertension SYSTEMS REVIEW As per HPI. Patient's biopsy site healed well. VITAL SIGNS T: 36.3 ??C (Core) HR: 82 RR: 18 BP: 159 / 56 SpO2: 97% HT: 161 cm WT: 56.4 kg BMI: 21.76 PHYSICAL EXAMINATION General: Alert and oriented. No acute distress. Neck: Supple. No lymphadenopathy. No carotid bruits. Cardiovascular exam: Regular rate and rhythm. Normal S1 and S2. No murmurs, rubs, or gallops. Lungs: Clear to auscultation bilaterally. Extremities: No pedal edema. Psychiatric: Mood is okay. Affect appears a little flat and mildly anxious. Thought process is linear and goal directed. Patient answers questions appropriately. She does pause a little to think aboutwhat she is goldie when asked. LAB RESULTS -----CHEMISTRY----- Sodium Lvl: 135.9 10/16/14 Vitamin B12 Lvl-Cabrera: 382 10/16/14 -----ENDOCRINOLOGY---- TSH: 2.76 10/16/14 IMPRESSION/REPORT/PLAN 1. Disorder Adjustment With Anxious Mood We are going to increase patient's Zoloft to 50 mg daily. Thus far she is tolerating it. We will plan on seeing her back in 1 month. Ordered: OV Est Pt Level 4 - 30024 - 25 min 2. Loss Memory NOS We are going to refer patient to occupational therapy for further testing. We obtained a thyroid function and vitamin B12 level which were both normal. Depending upon the results of her cognitive testing, we may pursue neuro imaging as well. Ordered: OV Est Pt Level 4 - 60518 - 25 min Thyroid Stimulating Hormone Vitamin B12 Assay-Cunningham 3634 3. Hypertension Blood pressure mildly elevated today. We will have patient return for nurse visit. Ordered: OV Est Pt Level 4 - 86826 - 25 min 4. Hyponatremia Sodium was a little low in the emergency department. It is normal today. Both the Zoloft and hydrochlorothiazide could be contributing so we will need to continue to monitor. Ordered: OV Est Pt Level 4 - 39190 - 25 min Sodium Level Orders: sertraline, 50 mg = 1 tab(s), PO, Daily, anxiety, # 30 tab(s), 11 Refill(s), Maintenance, Pharmacy:[facility] Occupational Therapy Referral Consult and Treat Electronically Signed By: ALEISHA GOLDEN MD On: 10/17/2014 03:12 PM Source: [employer] Document Id: [id number] documented in this encounter Nursing Notes Batsheva Newby R.N. - 09/25/2014 11:08 AM CDT lab work Email sent to Dr. Singh that patient had lab work done today. Patient telephoned and updated. Electronically Signed By: BATSHEVA NEWBY RN On: 09/25/2014 11:09 AM Modified by and Electronically Signed by: BATSHEVA NEWBY RN On: 09/25/2014 11:09 AM Source: [employer] Document Id: [id number] Batsheva Newby R.N. - 09/25/2014 9:29 AM CDT labs Phone call received from Dr. Singh. RBTO received from Na, K , creat and BUN to be drawn today. Message left for patient to call. Electronically Signed By: BATSHEVA NEWBY RN On: 09/25/2014 09:30 AM Modified by and Electronically Signed by: BATSHEVA NEWBY RN On: 09/25/2014 09:30 AM Source: [facility] [employer] Document Id: [id number] documented in this encounter Miscellaneous Notes Miscellaneous - Aleisha Hermosillo M.D. - 10/17/2014 3:04 PM CDT Normal Results Letter 17 October 2014 JANETH DUENAS [address] [facility] [id number] Dear JANETH DUENAS, I am pleased to report that your results from the following diagnostic test(s) are normal. Please follow up with us as we discussed during your visit or sooner if you have any concerns. If you have questions or concerns, please do not hesitate to call our office. Result Name Current Result Previous Result Normal Range Sodium Lvl (mM/L) 135.9 10/16/2014 (L) 128.0 10/03/2014 135.0 - 145.0 Vitamin B12 Lvl-Cabrera (ng/L) 382 10/16/2014 180 - 914 - TSH (mIU/L) 2.76 10/16/2014 0.27 - 4.20 Sincerely, ALEISHA GOLDEN [address] [place] [id number] Electronic Signature Electronically Signed By: ALEISHA GOLDEN MD On: 17 October 2014 This document has images extracted. Source: [facility] POWERCHART Document Id: [id number] Miscellaneous - Aleisha Hermosillo M.D. - 10/16/2014 7:54 AM CDT Ambulatory Patient Summary [address] [id number] Visit Information Name: JANETH DUENAS [facility] Number: [id number] Current Date: 10/16/2014 07:54:53 Physicians Attending Provider: ALEISHA GOLDEN MD Primary [...] 600+D) 1 tab, Oral, once a day hydrochlorothiazide (hydrochlorothiazide 25 mg oral tablet) 0.5 Tablet(s), Oral, once a day high blood pressure indomethacin (Indocin 50 mg oral capsule) 1 cap, Oral, three times a day as needed for Gout pain Take with food losartan (losartan 100 mg oral tablet) 1 Tablet(s), Oral, once a day high blood pressure multivitamin (Biotin Forte oral tablet) 10,000 mcg, Oral, once a day omega-3 polyunsaturated fatty acids (Fish Oil oral capsule) 1 cap, Oral, once a day sertraline (Zoloft 50 mg oral tablet) 1 Tablet(s), Oral, once a day anxiety This is a CHANGE Routed to [facility] [address] [place] [id number] Stop Taking the Following Medications: Medication list as of 10-16-14 07:54 Attention: If you have any medications at [...] Electronically Signed By: ALEISHA GOLDEN MD Signed On:16-OCT-2014 07:44:00 Your Allergies & Intolerances Substance Reaction Symptoms [...] online form. Youll be asked for your [facility] number which you can find at the top of this document. Your Goals/Additional instructions: Future Appointment: sreekanth Carroll, 1 month, 30 min Lab: _ Radiology: _ Need Prior Auth: _ NO Prior Auth: _ Consult: OT- next available Release of MR_ PHI_ Source: [facility] POWERCHART Document Id: [id number] Miscellaneous - Aleisha Hermosillo M.D. - 10/16/2014 7:54 AM CDT Ambulatory Discharge Medication List [address] [place] [id number] Visit Information Name: JANETH DUENAS [facility] Number: [id number] Visit Date: 10/16/2014 07:54:52 Attending Provider: ALEISHA GOLDEN MD Primary Care Provider: ALEISHA GOLDEN MD JANETH DUENAS RHYS has been given the following list of [...] 600+D) 1 tab, Oral, once a day hydrochlorothiazide (hydrochlorothiazide 25 mg oral tablet) 0.5 Tablet(s), Oral, once a day high blood pressure indomethacin (Indocin 50 mg oral capsule) 1 cap, Oral, three times a day as needed for Gout pain Take with food losartan (losartan 100 mg oral tablet) 1 Tablet(s), Oral, once a day high blood pressure multivitamin (Biotin Forte oral tablet) 10,000 mcg, Oral, once a day omega-3 polyunsaturated fatty acids (Fish Oil oral capsule) 1 cap, Oral, once a day sertraline (Zoloft 50 mg oral tablet) 1 Tablet(s), Oral, once a day anxiety This is a CHANGE Routed to [address] [address] Stop Taking the Following Medications: Medication list as of 10-16-14 07:54 Attention: If you have any medications at [...] Electronically Signed By: ALEISHA GOLDEN MD Signed On:16-OCT-2014 07:44:00 Additional Information: Source: [facility] POWERCHART Document Id: [id number] Miscellaneous - Jackeline Nava LKaiP.N. - 10/16/2014 7:51 AM CDT Ambulatory Vitals Height Weight Ambulatory Vitals Height Weight Entered On: 10/16/2014 7:52 CDT Performed On: 10/16/2014 7:51 CDT by JACKELINE NAVA LPN Vitals/Ht/Wt Systolic Blood Pressure : 161 mmHg (>HHI) Diastolic Blood Pressure : 47 mmHg (<LLOW) NIBP Mean : 85 mmHg BP Location : Left upper extremity Blood Pressure Cuff Size : Regular Height : 161 cm(Converted to: 5 ft 3 inch(es), 63 inch(es)) JACKELINE NAVA LPN - 10/16/2014 7:51 CDT Source: [employer] Document Id: [id number] CDT!8 Miscellaneous - Jackeline Nava, L.P.N. 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 Intake/History Entered On: 10/16/2014 7:24 CDT Performed On: 10/16/2014 7:20 CDT by JACKELINE NAVA LPN Intake Chief Complaint : check up biopsy Temperature Core : 36.3 DegC(Converted to: 97.3 DegF) (LOW) Peripheral Pulse Rate : 82 /min Respiratory Rate : 18 /min Systolic Blood Pressure : 159 mmHg (HI) Diastolic Blood Pressure : 56 mmHg NIBP Mean : 90 mmHg BP Location : Left upper extremity Blood Pressure Cuff Size : Regular SpO2 : 97 % Oxygen Therapy : Room air Height : 161 cm(Converted to: 5 ft 3 inch(es), 63 inch(es)) Actual Weight : 56.4 kg(Converted to: 124 lb 5 oz) Weight Source : Standing scale Dosing Weight Clinic : 56.4 kg Clinic BSA : 1.59 Body Mass Index : 21.76 kg/m2 JACKELINE NAVA LPN - 10/16/2014 7:20 CDT General Info Information Given By : Patient Languages : Bermudian Is Patient Female and 13-50 no hysterectomy : No JACKELINE NAVA LPN - 10/16/2014 7:20 CDT Subjective Pain Symptoms : No JACKELINE NAVA [facility] - 10/16/2014 7:20 CDT Dependent Habits Tobacco Use/Currently Using : No Exposure to Tobacco Smoke : Care provider denies smoking in home, Other: never Smoking Status : Never smoker Alcohol Use : Yes JACKELINE NAVA [facility] - 10/16/2014 7:20 CDT Caffeine Use Grid Caffeine Use : Current Type : Coffee Frequency : Daily Amount : 2 JACKELINE NAVA [facility] - 10/16/2014 7:20 CDT Recreational Drug Use Grid Drug Use : None JACKELINE NAVA [facility] - 10/16/2014 7:20 CDT Source: [facility] [employer] Document Id: [id number] CDT!39 documented in this encounter Plan of Treatment Not on filedocumented as of this encounter Procedures Procedure Name Priority Date/Time Associated Diagnosis Comme nts THYROID-STIMULATING Routine 10/16/2014 8:00 AM Re sults for this HORMONE-SENSITIVE CDT procedure are in (S-TSH) the results section. SODIUM, S/P Routine 10/16/2014 8:00 AM Results f or this CDT procedure are i n the results section. VITAMIN B12 ASSAY, Routine 10/16/2014 8:00 AM Res ults for this S CDT procedure are i n the results section. documented in this encounter Results Vitamin B12 Assay (10/16/2014 8:00 AM CDT) athologist Signature Vitamin B12 382 594 - 195 POWERCHART Assay, S NGL Comment: Test Performed by: [address] [address] [address] [employer] Architect: Luis Armando Cabrera II, M.D., Ph.D. Specimen (Source) Anatomical Collection Method Collection Time Re ceived Time Location / / Volume Laterality Blood 10/16/2014 8:00 AM CDT Aleisha Gonzales M.D. LAB BLOOD ADD-ON Performing Organization Address City/State/ZIP Code Phon e Number POWERCHART Thyroid-Stimulating Hormone-Sensitive (s-TSH) (10/16/2014 8:00 AM CDT) P athologist Signature TSH 2.76 0.27 - 4.20 POWERCHART (Thyrotropin) MIUL Specimen (Source) Anatomical Collection Method Collection Time Re ceived Time Location / / Volume Laterality Blood 10/16/2014 8:00 AM CDT Aleisha Gonzales M.D. LAB BLOOD ADD-ON Performing Organization Address City/State/ZIP Code Phon e Number POWERCHART Sodium (10/16/2014 8:00 AM CDT) P athologist Signature Sodium, S 135.9 135.0 - POWERCHART 145.0 MML Specimen (Source) Anatomical Collection Method Collection Time Re ceived Time Location / / Volume Laterality Blood 10/16/2014 8:00 AM CDT Aleisha Gonzales M.D. LAB BLOOD ADD-ON Performing Organization Address City/State/ZIP Code Phon e Number POWERCHART documented in this encounter Visit Diagnoses Not on filedocumented in this encounter
--- OUTSIDE RECORDS SUMMARY | 2022-01-04 09:39 | XMS_ITS | Encounter Summary ---
:1935 Author Organization [facility] Address [address] [place] [address] Care Team Providers Name Role Phone Unavailable Primary Care Provider Unavailable Encounter Details Date Type Department Care Team Description 10/17/2014 - Hospital Encounter HX [facility] [facility] Carly perez, 12/03/2014 WILDER Perez M.D. [id number] [id number] Social History Tobacco Use Types Packs/Day Years Used Date Smoking Tobacco: Never Assessed Sex Assigned at Date Recorded Not on file documented as of this encounter Last Filed Vital Signs Vital Sign Reading Time Taken Comments Blood Pressure 120/52 10/17/2014 12:36 PM CDT Pulse - - Temperature - - Respiratory [...] 0 1 01/21/2019 D3/MINERALS (CALCIUM-VITAMIN D ORAL) [id number] Take 1 capsule by 0 011 05/30/2018 oil 1,400 mg/5 mL liquid mouth daily. documented as of this encounter Progress Notes Shannan Denson O.T. - 11/12/2014 12:00 AM CDT [id number] OCCUPATIONAL THERAPY PROGRESS NOTE CHIEF COMPLAINT Memory concerns and anxiety. Patient stated that she has been practicing deep breathing, had a very stressful week with multiple family members coming to her home and she found that deep breathing and progressive muscle relaxation that we have done in the past has decreased her anxiety overall. Patient stated that she thinks more clearly now. She stated that her family has noticed a change in her cognition as well, that she is able to remember things short-term memory-reese much better. Patient did state that she wishes that she could exercise more often. She enjoys walking but is fearful of exercising due to her cardiac history. IMPRESSION/REPORT/PLAN Patient was given a moderately difficult multi-tasking deduction task this day. She was able to complete with increased time and verbal cues when she was stuck. She still continues to have difficulty with planning as well as problem solving. Patient given homework of additional deduction tasks for herto complete over the next 2 weeks. Patient found this very helpful, states that it is good exercise f or her brain. She did have a few moments of anxiety during this task but she completed some deep breathing and was able to focus and attain to the task once again. Patient was educated on cardiac signsand symptoms of exercise intolerance and completed 15 minutes on the Sci[employer] in the gym. Afterwards patient stated that she felt much better, she felt that she could think clearly and she reported no anxiety at this time. Discussed using community services. Patient is close to [place] and she statedthat it would be easy for her to drive to the [facility] to use the exercise equipmentat that center. Discussed that that center does have exercise equipment similar to the ones here at the gym. Discussed of what the just right exercise program would be for her, signs and symptoms to watch out for, and benefits of exercise for cognition as well as heart health. Patient stated that she will be gone for about 2 weeks going on a family trip, but that she would return in approximately 2 weeks for another occupational therapy session. Discussed plan of care. Patient anticipates needing approximately 2 to 3 more sessions. Discussed completing the MoCA and additional version of the MoCA atnext session to see if there has been an increase in overall thinking and cognition. Patient is progressing well on her goals. 15 minutes was spent with activities of daily living and 15 minutes spent therapeutic activity. Luciano Low/dayanna Electronically Signed By: SHANNAN DENSON On: 11/17/2014 10:15 AM Modified by and Electronically Signed by: SHANNAN DENSON On: 11/17/2014 10:15 AM Source: [facility]OLBEY[facility] Document Id: [id number] Shannan Denson O.T. - 10/22/2014 12:00 AM CDT [id number] OCCUPATIONAL THERAPY NOTE Patient arrived independently, stated that during the week she was pursed lip breathing and found greater reduction in anxiety. Patient completed a modified trail making task test this day with just numbers, connecting numbers and patient did okay, needed some assistance as the tasks became more difficult. Patient also completed organizing shapes, numbers and events which is a thought organization and work load task. Patient with moderate difficulty on this task initially. Noticeable anxiety and needing cues to complete pursed lip breathing. Once this was done, patient was able to focus on task andcomplete it without any cues. Patient given thought processing work sheet for home to complete before next session. Patient guided through 1 series of progressive muscle relaxation. At the end of the session found it to be very helpful, stated that she had increased clarity and thinking and decreased stress. Patient issued progressive muscle relaxation handout, encouraged to complete daily prior to bed to increase sleeping, as well as decrease anxiety and cognitive fog. Patient stated that her family did state that she has a noticeable change in her thinking process since prior visit. Patient made progress towards long-term goal #1 and short-term goals #2 and #3 this session. Approximately 30 minutes was spent on ADLs and education and patient will return in 1 week. Luciano Low/dayanna Electronically Signed By: SHANNAN DENSON On: 11/17/2014 10:09 AM Source: [facility] Document Id: [id number] documented in this encounter Consult Notes Shannan Denson O.Minal. - 10/17/2014 12:00 AM CDT [id number] OCCUPATIONAL THERAPY INITIAL EVALUATION AND TREATMENT Evaluation Patient was referred by Dr. Vieyar for cognitive evaluation and treatment. Patient with apast medical history of hypercholesterolemia, gout, hypertension, aortic valve disorder and multipleinsect bites. Patient with medication list of sertraline, losartan, hydrochlorothiazide, atenolol, mu ltivitamin, aspirin, calcium, omega-3. Patient drove himself to clinic this day. The patient stated that her main concern is anxiety. Patient was in the ER earlier in September due to chest pain with all negative lab results afterwards showing no heart attack or any kind of cardiac issue. Patient stated that when she becomes anxious or has a stressful day, she finds it difficult to think clearly. Family members have stated concerns of patient's cognitive abilities due to her forgetting things, repeating herself multiple times and leaving things around the house and forgetting where she has placed them. Treatment: Patient educated about OT and the plan of care for memory testing, as well as anxiety and stress reduction. Patient given the MoCA the Guerrero Cognitive Assessment. The Guerrero Cognitive Assessment is a 30-point cognitive screening assessment. Normal score is considered equal to or above 26 out of 30. The following ranges may be used to grade severity: 18 to 26 equals mild cognitive impairment, 10 to 17 equals moderate cognitive impairment and less than 10% equals severe cognitive impairment. These have not been researched. Average score for the MCI for mild cognitive impairment is 22 and for mild Alzheimer disease is 16. Patient scored 16 out of 30 this day. It was noted that she did have many moments of anxiety during the cognitive screening where patientneeded to be instructed in pursed lip breathing and deep breathing exercises to reduce anxiety. Patient with deficits in visual spatial and executive functioning. Unable to complete simple mappingtask with alternating numbers and letters. Patient stated that when looking at a picture of animals,stated a hippo instead of a rhinoceros. Needed cues to correct this. Patient with difficulty with attention. Difficulty with serial 7 subtraction. Patient was unable to concentrate in order to completethis. Patient also with difficulty with language. Unable to repeat a sentence stated exactly as it was stated. This could also be because of a limited attention span. Patient with greater difficulty with abstraction and abstract thought. When given the similarity between 2 objects, patient could only state what each object was used for and unable to find a similar thing between them. Patient also with a short-term memory deficit. Unable to recall any words after approximately 5 minutes. Patient alsodid not have the correct date. She was correct on the month and the year and the day and place and city, but was off on the date. Patient stated that she did graduate from high school but that she was a [id number] mom and her and tend to stay inside of their home most of the time and do not have a lot community activities. [place] is surrounded by family. She reads the paper, but does not read books or engaged in any puzzles, card games or words searched. 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 Patients says she sleeps approximately 8 hours each night, she falls asleep easily and she does not take any naps during the day. Patient lives in a house with her and he does all the yard work while she does the cooking and cleaning. She is currently independent with ADLs and IADLs. She does have a history of the aortic valve disease which increases her stress and anxiety. Patient has limited her exercise and mobility and activity levels due to this, but patient denies all symptoms regarding this. Patient was educated on how stress and anxiety can increase endorphins making it difficult to make decisions and thinking clearly. Patient was educated on pursed lip breathing. Completed one session of progressive muscle relaxation along with pursed lip breathing and found this incredibly helpful. Patient said that she was able to relax and she has not been able to do that in a couple months. OT Plan of Care: Patient educated on OT plan of care. Will return in 1 week for approximately 3 months or until plan of care is met, goals are met . supervisor intermediates goal: 1: Patient will be able to persist with a 1 to 2 step task for 10 minutes 90% of the time. 2: Patient will demonstrate ability to shift focus of attention to a new activity without perseveration once during a 30-minute session, 90% of the time. Short term goal: 1: Patient will be able to shift back and forth from one task to another without with losing track. 2: Patient will also complete 5 out of 7 critical details in problem solving tasks, example being checkbook activity, map reading activity and filing activity. 3: Patient will identify 3 to 4 stress relieving, coping mechanisms that she can use during her weekto decrease overall stress and anxiety with ADLs and IADLs. Approximately 26 minutes was spent with patient on ADLs, 20 minutes for evaluation this day with G-code modifier CJ is the current status. Goal status is CI, and patient will return in 1 week to continue occupational therapy. Luciano Low/dayanna Electronically Signed By: SHANNAN DENSON On: 10/22/2014 02:52 PM Modified by and Electronically Signed by: SHANNAN DENSON On: 10/22/2014 02:52 PM Source: [facility] Document Id: [id number] documented in this encounter Miscellaneous Notes Miscellaneous - Conversion, Historical Provider Ser - 10/29/2014 2:23 PM CDT Coding Summary-Paper Based CODING DATE: 10/29/2014 FINAL [facility] STATUS: Still Patient/Expected to Rtn Oupt [facility] PAYOR: Medicare ADMIT DX: 780.93 Memory Loss REASON FOR VISIT DX: 780.93 Memory Loss FINAL DX: PRINCIPAL: 780.93 Memory Loss SECONDARY: PROCEDURES DOCTOR NAME DATE NOTE: The code number assigned matches the documented diagnosis and / or procedure in the patient's chart. However, the narrative phrase printed from the coding software may appear abbreviated, or result in slightly different terminology. Coded By: LULY PANTOJA Date Saved: 10/29/2014 02:23 pm Source: [facility] Document Id: [id number] documented in this encounter Plan of Treatment Not on filedocumented as of this encounter Visit Diagnoses Not on filedocumented in this encounter
--- OUTSIDE RECORDS SUMMARY | 2022-01-04 09:39 | XMS_ITS | Encounter Summary ---
:1935 Author Organization [facility] Address [address] [place] [address] Care Team Providers Name Role Phone Unavailable Primary Care Provider Unavailable Encounter Details Date Type Department Care Team Description 08/25/2014 Hospital Encounter HX [facility], [facility] Aleisah coyle M.D. [address] [phone] (Wo rk) Social History Tobacco Use Types Packs/Day Years Used Date Smoking Tobacco: Never Assessed Sex Assigned at Date Recorded Not on file documented as of this encounter Last Filed Vital Signs Vital Sign Reading Time Taken Comments Blood Pressure 133/53 08/25/2014 6:53 AM CDT Pulse 67 08/25/2014 6:53 AM CDT Temperature - - Respiratory Rate 16 08/25/2014 6:53 AM CDT Oxygen Saturation - - Inhaled Oxygen Concentration - - Weight 56.5 kg (124 lb 9 oz) 08/25/2014 6:53 AM CDT Height 157.5 cm (5' 2.01) 08/25/2014 6:53 AM CDT Body Mass Index 22.78 08/25/2014 6:53 AM CDT documented in this encounter Medications at Time of Discharge Medication Sig Dispensed Refills Start Date End Date aspirin [address] tablet Take 1 tablet by 0 201401/21/2019 mouth daily. biotin 10,000 mcg Take by mouth daily. 0 08/26/19 15 05/30/2018 tablet,disintegrating CALCIUM CARB/VIT Take by mouth daily. 0 1 01/21/2019 D3/MINERALS (CALCIUM-VITAMIN D ORAL) [id number]-fish Take 1 capsule by 0 011 05/30/2018 oil 1,400 mg/5 mL liquid mouth daily. documented as of this encounter Progress Notes Aleisha Hermosillo M.D. - 08/25/2014 8:21 AM CDT Clinic Full Note CHIEF COMPLAINT/REASON FOR VISIT discuss large mole on chest, meds and ED visit. HISTORY OF PRESENT ILLNESS Janeth presents today with her to follow up on medications and discuss her gout as well as look at a mole. She was recently seen in the emergency department for chest pain. This was felt to be noncardiac in nature. She then followed up in the clinic and it was recommended that she not use Indocin for her gout. Patient is not entirely clear why she is not supposed to use the Indocin. She reports that lately her gout has been flaring in the right first MTP joint and the left lateral foot. Whenthe gout flares, she will wait a couple days and if it does not get better she takes the Indocin at bedtime with food. The next day she is generally better. She can go a number of weeks without needingto take the Indocin. The Indocin does make her sick if she takes it during the day. She is not sure if there are any triggers to her gout. She denies any heartburn or stomach pain. Chest pain has been better. She is following up with cardiology on . She denies any problems with her breathing with the exception of some shortness of breath when she goes up the stairs. Of note she also had a fairly unremarkable gallbladder ultrasound. She was noted to have a possible 2-mm polyp but no gallstones. Patient also has a mole on her chest that has been there for some time and is not changing. She is to concerned because it is a little unusual. MEDICATIONS aspirin 81 mg oral tablet, 81 mg, 1 tab(s), PO, Daily Aspirin Enteric Coated 325 mg oral delayed release tablet, 325 mg, 1 tab(s), start with two time per day for one week, PO, Daily, 1 refills atenolol 50 mg oral tablet, 50 mg, 1 tab(s), PO, Daily, 2 refills Biotin Forte oral tablet, 10,000 mcg, PO, Daily Calcium 600+D, 1 tab, PO, Daily Fish Oil oral capsule, 1 cap(s), PO, Daily Indocin 50 mg oral capsule, 50 mg, 1 cap(s), Take with food, PO, 3xDay, PRN, 0 refills lisinopril-hydrochlorothiazide 20 mg-25 mg oral tablet, 1 tab(s), PO, Daily, 2 refills omeprazole 20 mg oral delayed release tablet, 20 mg, 1 tab(s), PO, Daily, 0 refills, * * indicates non-compliance ALLERGIES No Known Medication Allergies PAST MEDICAL HISTORY Chronic Gout NOS Hypertension Pure Hypercholesterolemia Historical Tick Bite PROCEDURES/SURGICAL HISTORY Colonoscopy (08/28/2013), Echocardiogram (06/06/2013), Colonoscopy (11/08/2006), HC COLONOSCOPY W SNARE REMOVAL TUMOR/POLYP/LESION - 11/08/06 (11/08/2006), Hysterectomy (1975), C TOTAL ABDOM HYSTERECTOMY - 1969's - Hysterectomy, Total Abdominal (bleeding) - benign (). SOCIAL HISTORY Date Time: 08/25/2014 06:53 Tobacco: Smoking Status: No Results Found Exposure: No Results Found Alcohol: Use: No Recreational Drugs: Use: None Type: No Results Found FAMILY HISTORY Mother ( at 91 year(s)):Positive: Diabetes mellitus; Hypertension Father ( at 76 year(s)):Positive: Alzheimer's disease; Hypertension Brother: Negative: Son:Positive: Hypertension SYSTEMS REVIEW As per HPI. VITAL SIGNS T: 36.7 ??C (Core) HR: 67 RR: 16 BP: 133 / 53 HT: 157.5 cm WT: 56.5 kg BMI: 22.78 PHYSICAL EXAMINATION General: Alert and oriented. No acute distress. Neck: Supple. No lymphadenopathy. No carotid bruits. Cardiovascular exam: Regular rate and rhythm. Normal S1 and S2. 2/6 murmur. Lungs: Clear to auscultation bilaterally. Extremities: No pedal edema. Prominence of right 1st MTP joint but no erythema. Minimal erythema toleft lateral foot. Skin: To patient's mid upper chest, she has a flat brown lesion with irregular well defined bordersmeasuring 2.5cm by 2.7cm with some variation of color and elevation of interior. IMPRESSION/REPORT/PLAN 1. Gout NOS Patient has never used colchicine for her gout in the past. We will give that a try as it would be lower risk on her stomach and her to heart. If she does not tolerate this, I think her intermittent use of the Indocin is acceptable. We discussed colchicine's biggest side effect is diarrhea. Patient was also given information on a diet that will help to prevent gout. Ordered: OV Est Pt Level 4 - 79700 - 25 min 2. 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 Ordered: OV Est Pt Level 4 - 37912 - 25 min 3. Disorder Aortic Valve Acquired NOS Patient has upcoming appointment with cardiology as her aortic stenosis has progressed. She has nothad any further chest pain. Ordered: OV Est Pt Level 4 - 26277 - 25 min Orders: colchicine, 0.6 mg = 1 tab(s), PO, q1hr, PRN gout pain, at the first sign of a gout flare followed by 0.6 mg one hour later, # 10 tab(s), 3 Refill(s), Acute, Pharmacy: [facility] Electronically Signed By: ALEISHA GOLDEN MD On: 08/25/2014 08:23 AM Source: [facility] [place] POWERCHART Document Id: [id number] documented in this encounter Miscellaneous Notes Miscellaneous - Aleisha Hermosillo M.D. - 08/25/2014 7:23 AM CDT Ambulatory Patient Summary [address] [id number] Visit Information Name: JANETH RANGEL [facility] Number: [id number] Current Date: 08/25/2014 07:23:52 Physicians Attending Provider: ALEISHA GOLDEN MD Primary [...] Indications/Special Instructions/Comments/Notes for Patient Medication Changes/Routing aspirin (Aspirin Enteric Coated 325 mg oral delayed release tablet) 1 Tablet(s), Oral, once a day start with two time per day for one week aspirin (aspirin 81 mg oral tablet) 1 Tablet(s), Oral, once a day atenolol (atenolol 50 mg oral tablet) 1 Tablet(s), Oral, once a day calcium-vitamin D (Calcium 600+D) 1 tab, Oral, once a day colchicine (colchicine 0.6 mg oral tablet) 1 Tablet(s), Oral, every hour as needed for gout pain at the first sign of a gout flare followed by 0.6 mg one hour later New Routed to [address] [address] indomethacin (Indocin 50 mg oral capsule) 1 cap, Oral, three times a day as needed for Gout pain Take with food lisinopril-hydrochlorothiazide (lisinopril-hydrochlorothiazide 20 mg-25 mg oral tablet) 1 Tablet(s),Oral, once a day (Zestoretic) multivitamin (Biotin Forte oral tablet) 10,000 mcg, Oral, once a day omega-3 polyunsaturated fatty acids (Fish Oil oral capsule) 1 cap, Oral, once a day Stop Taking the Following Medications: Medication list as of 08-25-14 07:23 Attention: If you have any medications at [...] Electronically Signed By: ALEISHA GOLDEN MD Signed On:25-AUG-2014 07:23:19 Your Allergies & Intolerances Substance Reaction Symptoms Category Comments No Known Medication Allergies Drug NO KNOWN DRUG ALLERGIES Your Problem List Problem Status Onset Comments Hypertension Active 03/06/1990 Aortic insufficiency Active 10/20/2011 12/06/11 unknown date of dx; 12/06/11 stress test Gout NOS Active 11/26/2012 Pure Hypercholesterolemia Active 11/13/2001 06/01/13 Pure hypercholesterolemia Your Upcoming Appointments Date Time Location Provider 08/28/2014 14:45 [facility] Cardiology Pinky Singh MD Attention: Contact your local Clinic if further appointment detail needed. Your Goals/Additional instructions: Future Appointment: obie Carroll biopsy, 30 min, next available Lab: _ Radiology: _ Need Prior Auth: _ NO Prior Auth: _ Consult: _ Release of MR_ PHI_ Source: [employer] Document Id: [id number] Miscellaneous - Aleisha Hermosillo M.D. - 08/25/2014 7:23 AM CDT Ambulatory Discharge Medication List [address] [id number] Visit Information Name: JANETH RANGELONNE [facility] Number: [id number] Visit Date: 08/25/2014 07:23:51 Attending Provider: ALEISHA GOLDEN MD Primary Care Provider: ALEISHA GOLDEN MD JANETH RANGELONNE has been given the following list of medications: Your Medications It is important to take your medications as directed. Use a pill box or chart to help remind you to take your medications. Please let your doctor or nurse know if you have problems taking your medications. Medication/Strength How to Take Indications/Special Instructions/Comments/Notes for Patient Medication Changes/Routing aspirin (Aspirin Enteric Coated 325 mg oral delayed release tablet) 1 Tablet(s), Oral, once a day start with two time per day for one week aspirin (aspirin 81 mg oral tablet) 1 Tablet(s), Oral, once a day atenolol (atenolol 50 mg oral tablet) 1 Tablet(s), Oral, once a day calcium-vitamin D (Calcium 600+D) 1 tab, Oral, once a day colchicine (colchicine 0.6 mg oral tablet) 1 Tablet(s), Oral, every hour as needed for gout pain at the first sign of a gout flare followed by 0.6 mg one hour later New Routed to [facility] [address] [address] indomethacin (Indocin 50 mg oral capsule) 1 cap, Oral, three times a day as needed for Gout pain Take with food lisinopril-hydrochlorothiazide (lisinopril-hydrochlorothiazide 20 mg-25 mg oral tablet) 1 Tablet(s),Oral, once a day (Zestoretic) multivitamin (Biotin Forte oral tablet) 10,000 mcg, Oral, once a day omega-3 polyunsaturated fatty acids (Fish Oil oral capsule) 1 cap, Oral, once a day Stop Taking the Following Medications: Medication list as of 08-25-14 07:23 Attention: If you have any medications at [...] Electronically Signed By: ALEISHA GOLDEN MD Signed On:25-AUG-2014 07:23:19 Additional Information: Source: [facility] [place] POWERCHART Document Id: [id number] Miscellaneous - Janeth Og, L.P.N. - 08/25/2014 6:53 AM CDT Adult Cut Off Man Intake/History Adult Cut Off Man Intake/History Entered On: 08/25/2014 6:55 CDT Performed On: 08/25/2014 6:53 CDT by JANETH OG LPN Intake Chief Complaint : discuss large mole on chest, meds and ED visit. Temperature Core : 36.7 DegC(Converted to: 98.1 DegF) Peripheral Pulse Rate : 67 /min Respiratory Rate : 16 /min Systolic Blood Pressure : 133 mmHg Diastolic Blood Pressure : 53 mmHg NIBP Mean : 80 mmHg BP Location : Left upper extremity Blood Pressure Cuff Size : Regular Height : 157.5 cm(Converted to: 5 ft 2 inch(es), 62 inch(es)) Actual Weight : 56.5 kg(Converted to: 124 lb 9 oz) Weight Source : Standing scale Dosing Weight Clinic : 56.5 kg Clinic BSA : 1.57 Body Mass Index : 22.78 kg/m2 JANETH OG LPN - 08/25/2014 6:53 CDT General Info Information Given By : Patient Languages : Kazakh Is Patient Female and 13-50 no hysterectomy : No JANETH OG LPN - 08/25/2014 6:53 CDT Subjective Pain Symptoms : No JANETH OG LPN - 08/25/2014 6:53 CDT Dependent Habits Tobacco Use/Currently Using : No Exposure to Tobacco Smoke : Care provider denies smoking in home Smoking Status : Never smoker JANETH OG LPN - 08/25/2014 6:53 CDT Tobacco Use Grid Last Use : never JANETH OG LPN - 08/25/2014 6:53 CDT Alcohol Use : No JANETH OG LPN - 08/25/2014 6:53 CDT Caffeine Use Grid Caffeine Use : Current Type : Coffee Frequency : Daily Amount : 2 JANETH OG LPN - 08/25/2014 6:53 CDT Recreational Drug Use Grid Drug Use : None JANETH OG LPN - 08/25/2014 6:53 CDT [facility] Document Id: [id number] CDT!40 documented in this encounter Plan of Treatment Not on filedocumented as of this encounter Visit Diagnoses Not on filedocumented in this encounter
--- OUTSIDE RECORDS SUMMARY | 2022-01-04 09:39 | XMS_ITS | Encounter Summary ---
:1935 Author Organization [facility] Address [address] [place] [address] Care Team Providers Name Role Phone Unavailable Primary Care Provider Unavailable Encounter Details Date Type Department Care Team Description 08/28/2014 Hospital Encounter HX [facility] Whit Moyer M.D. [address] [place] [address] (Wo rk) Social History Tobacco Use Types Packs/Day Years Used Date Smoking Tobacco: Never Assessed Sex Assigned at Date Recorded Not on file documented as of this encounter Last Filed Vital Signs Vital Sign Reading Time Taken Comments Blood Pressure 112/60 08/28/2014 2:54 PM CDT Pulse 68 08/28/2014 2:54 PM CDT Temperature - - Respiratory Rate - - Oxygen Saturation - - Inhaled Oxygen Concentration - - Weight 57.4 kg (126 lb 8.7 oz) 08/28/2014 2:54 PM CDT Height 162 cm (5' 3.78) 08/28/2014 2:54 PM CDT Body Mass Index 21.87 08/28/2014 2:54 PM CDT documented in this encounter Medications at Time of Discharge Medication Sig Dispensed Refills Start Date End Date aspirin [address] tablet Take 1 tablet by 0 201401/21/2019 mouth daily. biotin 10,000 mcg Take by mouth daily. 0 08/26/19 15 05/30/2018 tablet,disintegrating CALCIUM CARB/VIT Take by mouth daily. 0 1 01/21/2019 D3/MINERALS (CALCIUM-VITAMIN D ORAL) aatms-5p-[id number]-epa-fish Take 1 capsule by 0 011 05/30/2018 oil 1,400 mg/5 mL liquid mouth daily. documented as of this encounter Consult Notes Pinky Moyer M.D. - 08/28/2014 2:42 PM CDT ANGELICA Mrs. Duenas is seen in followup for aortic insufficiency. Mrs. Duenas is a 79-year-old female. Shehas a history of noncardiac chest discomfort. She has had a negative stress test in 1999, exercise echo in 2011. She did have moderate aortic regurgitation though. She has a history of hypertension which she feels has been under been good control. She has had no hyperlipidemia, no diabetes, and no tobacco use and a negative family history. She has been active and may walk a half a mile she says a couple of times a week. She has had no shortness of breath. She has had no exertional chest discomfort, although recently she did have some left lateral chest discomfort nonexertional in a small area. She has had no palpitations and no edema. She has had some problems with gout recently which has limited her walking. During her current evaluation she did have an echo done that showed aortic sclerosis with moderate to severe AI, mild to moderate left ventricular enlargement. Her left ventricle end diastolic dimentionwas 57mm and has not changed and EF was 62%. She had fairly normal left ventricular filling pressures and her right ventricular systolic pressure was 23. They felt compared to 2014 the aortic regurgitation has increased from moderate to moderate to severe. PHYSICAL EXAMINATION VITAL SIGNS: Her blood pressure was 144/56. Her pulse was 68 and regular. LUNGS: Clear. CARDIAC: Normal jugular venous pressure. Carotids upstroke was quite brisk. No parasternal lift. PMIwas normal, S1, S2 with a 2 out of 6 systolic ejection murmur and a to 2 out of 6 long diastolic murmur of aortic insufficiency heard at the base left sternal border and apex. ABDOMEN: Soft, nontender. EXTREMITIES: Brisk femoral pulses without bruits. Normal pedal pulses and no edema. IMPRESSION/REPORT/PLAN Mrs. Duenas had some recent chest discomfort which has been atypical and does not sound cardiac. Her recent labs were unremarkable. Her aortic insufficiency by exam and by echo seems to be worse, although no change in her left ventricular size. She is mildly hypertensive on my exam. She is on atenolol which we could reduce or discontinue, although her pulse is not especially slow. I am going to increase her lisinopril just a bit to 30 mg a day and decrease her hydrochlorothiazide at 12.5 mg a day, and she is going to have to come in for a couple of blood pressure checks and will be getting electrolytes in a couple of weeks. Because of the echo change, I would like to repeat her echo in about 9 months and see her and she should remain active. She is assymptomatic but if there is change in her symptoms she should be seen right away. Whit Moyer M.D./dayanna Electronically Signed By: Pinky MOYER MD On: 08/30/2014 07:05 PM Modified by and Electronically Signed by: Pinky MOYER MD On: 08/30/2014 07:05 PM Source: [facility] [email or web address] Document Id: [id number] documented in this encounter Miscellaneous Notes Miscellaneous - Batsheva Newby R.N. - 08/29/2014 8:37 AM CDT *General Message From: BATSHEVA NEWBY RN To: MAGO GOLDEN MD; Sent: 08/29/2014 08:37:02 CDT Subject: *General Message Hi Dr. Carroll, Dr. Moyer saw Janeth yesterday. His consult note is available for you to review. Thanks Source: [facility] POWERCHART Document Id: [id number] Miscellaneous - Brittani Miner R.N. - 08/28/2014 2:54 PM CDT Adult Reservoir Caretaker Intake/History Document Has Been Updated Adult Reservoir Caretaker Intake/History Entered On: 08/28/2014 14:59 CDT Performed On: 08/28/2014 14:54 CDT by BRITTANI MINER turner off Peripheral Pulse Rate : 68 /min Systolic Blood Pressure : 112 mmHg Diastolic Blood Pressure : 60 mmHg NIBP Mean : 77 mmHg Height : 162 cm(Converted to: 5 ft 4 inch(es), 64 inch(es)) Actual Weight : 57.4 kg(Converted to: 126 lb 9 oz) Dosing Weight Clinic : 57.4 kg Clinic BSA : 1.61 Body Mass Index : 21.87 kg/m2 BRITTANI MINER RN - 08/28/2014 14:54 CDT General Info Information Given By : Patient Languages : [place] Islander Is Patient Female and 13-50 no hysterectomy : No BRITTANI MINER RN - 08/28/2014 14:54 CDT Subjective Pain Symptoms : No Cardiovascular Symptoms : Other: Pt states she doesn't have pain but something comes and goes when she gets hyper BRITTANI MINER RN - 08/28/2014 14:54 CDT Dependent Habits Tobacco Use/Currently Using : No Exposure to Tobacco Smoke : Care provider denies smoking in home Smoking Status : Former smoker Alcohol Use : Yes BRITTANI MINER RN - 08/28/2014 14:54 CDT Caffeine Use Grid Caffeine Use : Current Type : Coffee Frequency : Daily Amount : 2 BRITTANI MINER RN - 08/28/2014 14:54 CDT Recreational Drug Use Grid Drug Use : None BRITTANI MINER RN - 08/28/2014 14:54 CDT Allergy (As Of: 08/28/2014 14:59:39 CDT) Allergies (Active) No Known Medication Allergies Comments: Comment 1: NO KNOWN DRUG ALLERGIES ; Created By: [email or web address]; Reaction Status: Active ; Category: Drug ; Substance: No Known Medication Allergies ; Type: Unknown ; Updated By: Contributor_SHELDON [email or web address]; Reviewed Date: 08/25/2014 6:46 CDT Exercise Vitals Days/Wk of Moderate or Greater Exercise : 3 (Comment: Pt states she walks 3/10 [address] the driveway and back . daily [BRITTANI MINER RN - 08/28/2014 14:54 CDT] ) BRITTANI MINER RN - 08/28/2014 14:54 CDT Diabetes Intake Do You Have Diabetes : No BRITTANI MINER RN - 08/28/2014 14:54 CDT Source: [facility] Document Id: [id number] CDT!36 documented in this encounter Plan of Treatment Not on filedocumented as of this encounter Visit Diagnoses Not on filedocumented in this encounter
--- OUTSIDE RECORDS SUMMARY | 2022-01-04 09:39 | XMS_ITS | Encounter Summary ---
:1935 Author Organization [facility] Address [address] [place] [address] Care Team Providers Name Role Phone Unavailable Primary Care Provider Unavailable Encounter Details Date Type Department Care Team Description 01/07/2015 Hospital Encounter HX [facility], [facility] Aleisha coyle M.D. [address] [phone] (Wo rk) Social History Tobacco Use Types Packs/Day Years Used Date Smoking Tobacco: Never Assessed Sex Assigned at Date Recorded Not on file documented as of this encounter Last Filed Vital Signs Vital Sign Reading Time Taken Comments Blood Pressure 137/64 01/07/2015 9:00 AM KNIFE FINISHER Pulse 74 01/07/2015 9:00 AM KNIFE FINISHER Temperature - - Respiratory Rate 16 01/07/2015 8:52 AM KNIFE FINISHER Oxygen Saturation - - Inhaled Oxygen Concentration - - Weight 56.5 kg (124 lb 9 oz) 01/07/2015 8:52 AM KNIFE FINISHER Height 162 cm (5' 3.78) 01/07/2015 9:00 AM KNIFE FINISHER Body Mass Index 21.53 01/07/2015 8:52 AM KNIFE FINISHER documented in this encounter Medications at Time of Discharge Medication Sig Dispensed Refills Start Date End Date aspirin [address] tablet Take 1 tablet by 0 201401/21/2019 mouth daily. biotin 10,000 mcg Take by mouth daily. 0 08/26/19 15 05/30/2018 tablet,disintegrating CALCIUM CARB/VIT Take by mouth daily. 0 1 01/21/2019 D3/MINERALS (CALCIUM-VITAMIN D ORAL) [id number]-epa-fish Take 1 capsule by 0 011 05/30/2018 oil 1,400 mg/5 mL liquid mouth daily. documented as of this encounter Progress Notes Aleisha Hermosillo M.D. - 01/07/2015 9:36 AM CST Clinic Full Note CHIEF COMPLAINT/REASON FOR VISIT here for bp recheck HISTORY OF PRESENT ILLNESS Janeth presents today to follow up on her blood pressure. She presented to the emergency department on December 30 with a blood pressure of 220 systolic. She was managed in the emergency department and discharged home. She was advised to stop the Medrol Dosepak which she had started a few days earlier for sciatica. She reports that she has been feeling much better. She saw a chiropractor for her sciatica and that is much improved. Her breathing is okay. No chest pain. At her last visit, we had added Aricept at 5 mg daily. She does not believe she has had any side effects from it and she thinks it may be helping her memory. Patient states she has had 1 headache since being in the emergency department. She does believe that they checked her blood pressure and it was up a little although not as bad as when she went to the ED. MEDICATIONS Aricept 5 mg oral tablet, 5 mg, 1 tab(s), memory, PO, Bedtime, 11 refills aspirin 81 mg oral tablet, 81 [...] - benign (). SOCIAL HISTORY Date Time: 01/07/2015 08:52 Tobacco: Smoking Status: Never smoker Exposure: Care provider denies smoking in home, Other: never Alcohol: Use: Yes Recreational Drugs: Use: None Type: No Results Found FAMILY HISTORY Mother ( at 91 year(s)):Positive: Diabetes mellitus; Hypertension Father ( at 76 year(s)):Positive: Alzheimer's disease; Hypertension Brother: Negative: Son:Positive: Hypertension SYSTEMS REVIEW As per HPI. Weight stable. VITAL SIGNS T: 36.4 ??C (Core) HR: 74 RR: 16 BP: 137 / 64 HT: 162 cm WT: 56.5 kg BMI: 21.53 PHYSICAL EXAMINATION General: Alert and oriented. No acute distress. Neck: Supple. No lymphadenopathy. Radiated murmur to bilateral carotids. Cardiovascular exam: Regular rate and rhythm. Normal S1 and S2. 2/6 systolic murmur. Lungs: Clear to auscultation bilaterally. Extremities: No pedal edema. Psychiatric: Patient appears to have a hard time remembering specific details related to meds and instructions. IMPRESSION/REPORT/PLAN 1. Hypertension HTN NOS Blood pressure acceptable today. I have asked her to check her blood pressure a couple times a weekand when she has a headache and write these down to bring to her next visit. I am not going to make any changes today and it is likely that the steroids contributed to the elevation. Ordered: OV Est Pt Level 3 - 00544 - 15 min 2. Loss Memory NOS Patient is tolerating the Aricept. We had planned on seeing her back on January 26 for follow up, but since we were able to address this today, we will move that appt back one month. I wrote down instructions for patient to increase her Aricept to 10mg daily when she is out of her 5mg pills. Her was not present today, but we will confirm that he saw all of patient's instructions. Ordered: OV Est Pt Level 3 - 06385 - 15 min Orders: donepezil, 10 mg = 1 tab(s), PO, Bedtime, memory- patient will call when needed, # 90 tab(s), 3 Refill(s), Maintenance, Pharmacy: [facility] influenza virus vaccine, inactivated, 0.5 mL, IM, Once, 01/07/15 8:51:00 KNIFE FINISHER influenza virus vaccine QUAD, inactivated (Influenza virus vaccine, inactive, 3 yrs, PF) charge Electronically Signed By: ALEISHA GOLDEN MD On: 01/07/2015 09:39 AM Source: [facility] POWERCHART Document Id: [id number] E FINISHER documented in this encounter Miscellaneous Notes Miscellaneous - Aleisha Hermosillo M.D. - 01/07/2015 9:26 AM KNIFE FINISHER appt follow up Document Contains Addenda Addendum by JANETH OG LPN on 08 January 2015 15:56:26 KNIFE FINISHER talked with Rickey and he did see the note from Dr. Carroll. I went thru the info noted below and he understands it. If he has any questions he will call back. Addendum by JANETH OG LPN on 08 January 2015 11:14:05 KNIFE FINISHER Talked with pt this a.m. and she stated she didn't show the print out from yesterday as he is getting ready for deer hunting. I am to call back at 12 noon. Addendum by JANETH OG LPN on 07 January 2015 11:03:46 KNIFE FINISHER Rickey was not at home this a.m. Will try back this afternoon. From: ALEISHA GOLDEN MD To: [facility] Nurse [place]; Sent: 01/07/2015 09:26:32 KNIFE FINISHER Subject: appt follow up Please call patient's Rickey and confirm that he has seen patient's depart summary with instructions. Everything was written down, but to summarize: 1. Check patient's blood pressure 2 times a week and when she has a headache. Write down these numbers and bring them to our next appt. 2. Increase Aricept to 10mg when she runs out of the 5mg pills. A new script was sent to [facility] and they just need to call when they are ready for it to be filled. 3. Jan 26 appt was cancelled as this appt was to make sure she was doing okay on the Aricept whichwe confirmed today. We rescheduled for later in February to follow up on memory. Please ask if he has any other concerns or questions. ThanksZaina Source: [facility] POWERCHART Document Id: [id number] Electronically signed by Leo [facility] Sausage Wrapper [id number] at 08/01/2016 6:11 AM CDT Miscellaneous - Aleisha Hermosillo M.D. - 01/07/2015 9:17 AM KNIFE FINISHER Ambulatory Patient Summary [address] [place] [id number] Visit Information Name: JANETH DUENAS [facility] Number: [id number] Current Date: 01/07/2015 09:17:56 Physicians Attending Provider: ALEISHA GOLDEN MD Primary Care Provider: ALEISHA GOLDEN MD JANETH DUENASONNE has been given the following list [...] the Following Medications: Medication list as of 01-07-15 09:17 Attention: If you have any medications at [...] Electronically Signed By: ALEISHA GOLDEN MD Signed On:07-JAN-2015 09:17:42 Your Allergies & Intolerances Substance Reaction Symptoms Category Comments lisinopril Drug Tickle in throat x 3 weeks with no other reason Your Problem List Problem Status Onset Comments Hypertension Active 03/06/1990 Aortic insufficiency Active 10/20/2011 12/06/11 unknown date of dx; 12/06/11 stress test Gout NOS Active 11/26/2012 Pure Hypercholesterolemia Active 11/13/2001 06/01/13 Pure hypercholesterolemia Your Upcoming Appointments Date Time Location Provider 01/26/2015 07:45 [facility] Family [facility] Aleisha Carroll MD Attention: Contact your local Clinic if [...] if you dont have one. Go to [email or web address] and click on Create Your Account. Then, follow the directions to complete the online form. Youll be asked for your [facility] number which you can find at the top of this document. Your Goals/Additional instructions: Source: [facility] POWERCHART Document Id: [id number] E FINISHER Miscellaneous - Aleisha Hermosillo M.D. - 01/07/2015 9:17 AM KNIFE FINISHER Ambulatory Discharge Medication List [address] [id number] Visit Information Name: JANETH DUENAS [facility] Number: [id number] Visit Date: 01/07/2015 09:17:54 Attending Provider: ALEISHA GOLDEN MD Primary Care [...] the Following Medications: Medication list as of 01-07-15 09:17 Attention: If you have any medications at [...] Electronically Signed By: ALEISHA GOLDEN MD Signed On:07-JAN-2015 09:17:42 Additional Information: Source: [facility] ACE PortalCHART Document Id: [id number] E FINISHER [place] - Janeth Og L.P.N. - 01/07/2015 9:00 AM CST Ambulatory Vitals Height Weight Ambulatory Vitals Height Weight Entered On: 01/07/2015 9:02 KNIFE FINISHER Performed On: 01/07/2015 9:00 KNIFE FINISHER by JANETH OG LPN Vitals/Ht/Wt Peripheral Pulse Rate : 74 /min Systolic Blood Pressure : 137 mmHg Diastolic Blood Pressure : 64 mmHg NIBP Mean : 88 mmHg BP Location : Left upper extremity Blood Pressure Cuff Size : Regular Height : 162 cm(Converted to: 5 ft 4 inch(es), 64 inch(es)) JANETH OG LPN - 01/07/2015 9:00 KNIFE FINISHER Source: [facility] ACE PortalCHART Document Id: [id number] KNIFE FINISHER!9 E FINISHER Janeth Roman L.P.N. - 01/07/2015 8:52 AM CST Adult Bench Repair Technician Intake/History Adult Bench Repair Technician Intake/History Entered On: 01/07/2015 8:59 KNIFE FINISHER Performed On: 01/07/2015 8:52 KNIFE FINISHER by JANETH OG LPN Intake Chief Complaint : here for bp recheck Temperature Core : 36.4 DegC(Converted to: 97.5 DegF) (LOW) Peripheral Pulse Rate : 67 /min Respiratory Rate : 16 /min Systolic Blood Pressure : 148 mmHg (HI) Diastolic Blood Pressure : 56 mmHg NIBP Mean : 87 mmHg BP Location : Left upper extremity Blood Pressure Cuff Size : Regular Height : 162 cm(Converted to: 5 ft 4 inch(es), 64 inch(es)) Actual Weight : 56.5 kg(Converted to: 124 lb 9 oz) Weight Source : Standing scale Dosing Weight Clinic : 56.5 kg Clinic BSA : 1.59 Body Mass Index : 21.53 kg/m2 JANETH OG LPN - 01/07/2015 8:52 KNIFE FINISHER General Info Information Given By : Patient Languages : Tristanian Is Patient Female and 13-50 no hysterectomy : No JANETH OG LPN - 01/07/2015 8:52 KNIFE FINISHER Subjective Pain Symptoms : No JANETH OG LPN - 01/07/2015 8:52 KNIFE FINISHER Dependent Habits Tobacco Use/Currently Using : No Exposure to Tobacco Smoke : Care provider denies smoking in home, Other: never Smoking Status : Never smoker JANETH OG LPN - 01/07/2015 8:52 KNIFE FINISHER Tobacco Use Grid Last Use : never JANETH OG LPN - 01/07/2015 8:52 KNIFE FINISHER Alcohol Use : Yes JANETH OG LPN - 01/07/2015 8:52 KNIFE FINISHER Caffeine Use Grid Caffeine Use : Current Type : Coffee Frequency : Daily JANETH OG LPN - 01/07/2015 8:52 KNIFE FINISHER Recreational Drug Use Grid Drug Use : None JANETH OG LPN - 01/07/2015 8:52 KNIFE FINISHER Source: [facility] POWERCHART Document Id: [id number] KNIFE FINISHER!39 E FINISHER documented in this encounter Plan of Treatment Not on filedocumented as of this encounter Visit Diagnoses Not on filedocumented in this encounter
--- OUTSIDE RECORDS SUMMARY | 2022-01-04 09:39 | XMS_ITS | Encounter Summary ---
:1935 Author Organization [facility] Address [address] [place] [address] Care Team Providers Name Role Phone Unavailable Primary Care Provider Unavailable Encounter Details Date Type Department Care Team Description 09/04/[address] [facility] Whit Singh M.D. [address] [place] [address] (Wo rk) Social History Tobacco Use Types [...] 0 1 01/21/2019 D3/MINERALS (CALCIUM-VITAMIN D ORAL) [id number]-epa-fish Take 1 capsule by 0 011 05/30/2018 oil 1,400 mg/5 mL liquid mouth daily. documented as of this encounter Nursing Notes Batsheva Newby R.N. - 09/04/2014 11:44 AM CDT blood pressure repeat Patient did not return for blood pressure check and to review meds. No answer on phone call. Will update Dr. Singh on Monday. Electronically Signed By: BATSHEVA NEWBY RN On: 09/04/2014 11:45 AM Modified by and Electronically Signed by: BATSHEVA NEWBY RN On: 09/04/2014 11:45 AM Source: [facility] [employer] Document Id: [id number] documented in this encounter Plan of Treatment Not on filedocumented as of this encounter Visit Diagnoses Not on filedocumented in this encounter
--- OUTSIDE RECORDS SUMMARY | 2022-01-04 09:39 | XMS_ITS | Encounter Summary ---
:1935 Author Organization [facility] Address [address] [place] [address] Care Team Providers Name Role Phone Unavailable Primary Care Provider Unavailable Encounter Details Date Type Department Care Team Description 09/01/2014 Hospital Encounter HX [facility] Karen Meraz M.D. [address] [place], [place] [address] (Wo rk) Social History Tobacco Use Types Packs/Day Years Used Date Smoking Tobacco: Never Assessed Sex Assigned at Date Recorded Not on file documented as of this encounter Last Filed Vital Signs Vital Sign Reading Time Taken Comments Blood Pressure 142/43 09/01/2014 12:33 PM CDT Pulse 64 09/01/2014 12:33 PM CDT Temperature - - Respiratory Rate 16 09/01/2014 12:33 PM CDT Oxygen Saturation - - Inhaled Oxygen Concentration - - Weight 57.3 kg (126 lb 5.2 oz) 09/01/2014 12:33 PM CDT Height - - Body Mass Index 21.83 08/28/2014 2:54 PM CDT documented in this encounter Medications at Time of Discharge Medication Sig Dispensed Refills Start Date End Date aspirin [address] tablet Take 1 tablet by 0 201401/21/2019 mouth daily. biotin 10,000 mcg Take by mouth daily. 0 08/26/19 15 05/30/2018 tablet,disintegrating CALCIUM CARB/VIT Take by mouth daily. 0 1 01/21/2019 D3/MINERALS (CALCIUM-VITAMIN D ORAL) [id number]-fish Take 1 capsule by 0 011 05/30/2018 oil 1,400 mg/5 mL liquid mouth daily. documented as of this encounter Progress Notes Sukhjinder Daniel M.D. - 09/01/2014 1:34 PM CDT Progress Note, Family Practice No documentation for this visit due to the provider no longer with the facility. Electronically Signed By: SUKHJINDER DANIEL MD On: 12/19/2014 01:39 PM Electronically Signed by Proxy by: SE ANABEL ALBARRAN, INBOX Source: [facility] POWERCHART Document Id: [id number] documented in this encounter Miscellaneous Notes Miscellaneous - Se Dalal L.PKaiNKai - 09/01/2014 12:33 PM CDT Adult Coal Weigher Intake/History Adult Coal Weigher Intake/History Entered On: 09/01/2014 12:36 CDT Performed On: 09/01/2014 12:33 CDT by SE DALAL LPN Intake Chief Complaint : Cough x3wks. Ambulatory Intake Additional Information : Patient states she feels a tickle in her throat causing her to cough. Temperature Core : 36.4 DegC(Converted to: 97.5 DegF) (LOW) Peripheral Pulse Rate : 64 /min Respiratory Rate : 16 /min Systolic Blood Pressure : 142 mmHg (HI) Diastolic Blood Pressure : 43 mmHg (<LLOW) NIBP Mean : 76 mmHg BP Location : Left upper extremity Blood Pressure Cuff Size : Regular SpO2 : 97 % Oxygen Therapy : Room air Actual Weight : 57.3 kg(Converted to: 126 lb 5 oz) Weight Source : Standing scale Dosing Weight Clinic : 57.3 kg SE DALAL LPN - 09/01/2014 12:33 CDT General Info Information Given By : Patient Preferred Communication Mode : Verbal Languages : Guyanese Is Patient Female and 13-50 no hysterectomy : No SE DALAL LPN - 09/01/2014 12:33 CDT Subjective Pain Symptoms : No SE DALAL LPN - 09/01/2014 12:33 CDT Dependent Habits Tobacco Use/Currently Using : No Exposure to Tobacco Smoke : Care provider denies smoking in home, Other: never Smoking Status : Never smoker Alcohol Use : No SE DALAL LPN - 09/01/2014 12:33 CDT Caffeine Use Grid Caffeine Use : Current Type : Coffee Frequency : Daily Amount : 2 SE DALAL LPN - 09/01/2014 12:33 CDT Recreational Drug Use Grid Drug Use : None SE DALAL LPN - 09/01/2014 12:33 CDT [facility] Document Id: [id number] CDT!38 documented in this encounter Plan of Treatment Not on filedocumented as of this encounter Visit Diagnoses Not on filedocumented in this encounter
--- OUTSIDE RECORDS SUMMARY | 2022-01-04 09:39 | XMS_ITS | Encounter Summary ---
:1935 Author Organization [facility] Address [address] [place] [address] Care Team Providers Name Role Phone Unavailable Primary Care Provider Unavailable Encounter Details Date Type Department Care Team Description 09/12/2014 Hospital Encounter HX [facility] Whit Singh M.D. [address] [place], [place] [phone] (Wo rk) Social History [...] 0 1 01/21/2019 D3/MINERALS (CALCIUM-VITAMIN D ORAL) [id number]-4q-uys-epa-fish Take 1 capsule by 0 011 05/30/2018 oil 1,400 mg/5 mL liquid mouth daily. documented as of this encounter Plan of Treatment Not on filedocumented as of this encounter Procedures Procedure Name Priority Date/Time Associated Comments Diagnosis CREATININE WITH Routine 09/12/2014 9:03 AM Result s for this EGFR, S/P CDT procedure are i n the results section. documented in this encounter Results (ABNORMAL) Creatinine with eGFR (09/12/2014 9:03 AM CDT) P athologist Signature Creatinine 0.98 0.60 - POWERCHART 1.30 MGDL HXeGFR (MDRD) 55 (L) >=60 POWERCHART [id number] eGFR >60 >=60 POWERCHART Black/ [id number] Djib[place]ian Specimen (Source) Anatomical Collection Method Collection Time Re ceived Time Location / / Volume Laterality Blood 09/12/2014 9:03 AM CDT Whit Singh M.D. LAB BLOOD ADD-ON Performing Organization Address City/State/ZIP Code Phon e Number POWERCHART documented in this encounter Visit Diagnoses Not on filedocumented in this encounter
--- OUTSIDE RECORDS SUMMARY | 2022-01-04 09:39 | XMS_ITS | Encounter Summary ---
:1935 Author Organization [facility] Address [address] [place] [address] Care Team Providers Name Role Phone Unavailable Primary Care Provider Unavailable Encounter Details Date Type Department Care Team Description 09/02/2014 Hospital Encounter HX [facility] Karen Talbot M.D. [address] [place], [place] [address] (Wo rk) Social History [...] 0 1 01/21/2019 D3/MINERALS (CALCIUM-VITAMIN D ORAL) empxl-9y-kir-epa-fish Take 1 capsule by 0 011 05/30/2018 oil 1,400 mg/5 mL liquid mouth daily. documented as of this encounter Plan of Treatment Not on filedocumented as of this encounter Procedures Procedure Name Priority Date/Time Associated Diagnosis Comme nts LIPID PANEL, S Routine 09/02/2014 8:03 AM Results for this CDT procedure are i n the results section . documented in this encounter Results (ABNORMAL) Lipid Panel (09/02/2014 8:03 AM CDT) P athologist Signature Cholesterol, 146 <=199 MGDL POWERCHART Total Comment: 2013 National Lipid Association recommen dations for Total Cholesterol in adults ages 18 and up: Desirable <200 mg/dL Borderline high 200-239 mg/dL High 240 mg/dL 2014 National Lipid Association recommen dations for Total Cholesterol in children ages 2 to 17. Acceptable <170 mg/dL Borderline High 170-199 mg/dL High 200 mg/dL HX HDL 44 (L) >=50 MGDL POWERCHART Comment: 2014 National Lipid Association recommen dations for HDL-C in adults ages 18 and up: Low <40 mg/dL (Men) Low <50 mg/dL (Women) 2014 National Lipid Association recommen dations for HDL-C in children ages 2 to 17. Low <40 mg/dL Borderline Low 40-45 mg/dL Acceptable >45 mg/dL Triglycerides 78 <=149 MGDL POWERCHART Comment: 2014 National Lipid Association recommen dations for [...] assessment when triglycerides are >400mg/dL. Calculated LDL 87 <=129 MGDL POWERCHART Comment: 2013 National Lipid [...] FH and FDB is available ramesh morales [facility]: FH/ADH Genetic Reflex Kwaku hawkins (test ADHP). Acquired (non-genetic) causes of markedly increased LDL cholesterol include cholestatic liver disease due to the presence of LpX. If a genetic form of hypercholesterolemia is suspected, family studies including biochemical testing fo r lipids (total cholesterol,triglycerides, LDL cholesterol and HDL cholesterol) are recommended. ??Please contact the laboratory at or the on-line test catalog at [employer] for information about how to order these ruben ts or to speak with a genetic counselor. Further interpretation would require clinical information. Total Cholesterol/HDL Ratio 3 PO WERCHART Specimen (Source) Anatomical Collection Method Collection Time Re ceived Time Location / / Volume Laterality Blood 09/02/2014 8:03 AM CDT Sukhjinder Talbot M.D. LAB BLOOD ADD-ON Performing Organization Address City/State/ZIP Code Phon e Number POWERCHART documented in this encounter Visit Diagnoses Not on filedocumented in this encounter
--- OUTSIDE RECORDS SUMMARY | 2022-01-04 09:39 | XMS_ITS | Encounter Summary ---
:1935 Author Organization [facility] Address [address] [place] [address] Care Team Providers Name Role Phone Unavailable Primary Care Provider Unavailable Encounter Details Date Type Department Care Team Description 08/11/[address] [facility] ECHO Aleisha Hermosillo M.D. [address] [place] [phone] (Wo rk) Social History Tobacco Use Types Packs/Day Years Used Date Smoking Tobacco: Never Assessed Sex Assigned at Date Recorded Not on file documented as of this encounter Medications at Time of Discharge Medication Sig Dispensed Refills Start Date End Date aspirin [address] tablet Take 1 tablet by 0 201401/21/2019 mouth daily. CALCIUM CARB/VIT Take by mouth daily. 0 1 01/21/2019 D3/MINERALS (CALCIUM-VITAMIN D ORAL) [id number] Take 1 capsule by 0 011 05/30/2018 oil 1,400 mg/5 mL liquid mouth daily. documented as of this encounter Miscellaneous Notes Miscellaneous - Batsheva Newby R.N. - 08/12/2014 11:01 AM CDT *General Message Document Contains Addenda Addendum by ALEISHA GOLDEN MD on 18 August 2014 09:10:01 CDT From: ALEISHA GOLDEN MD To: [place] Cardiology Nurse; Sent: 08/18/2014 09:10:01 CDT Subject: RE: *General Message Thanks. Addendum by BATSHEVA NEWBY RN on 14 August 2014 11:18:42 CDT From: BATSHEVA NEWBY RN ([place] Cardiology Nurse) To: ALEISHA GOLDEN MD; Sent: 08/14/2014 11:18:42 CDT Subject: RE: *General Message Janeth had an appt with Dr. Singh on 08-28. Addendum by BATSHEVA NEWBY RN on 14 August 2014 07:35:35 CDT From: BATSHEVA NEWBY RN ([place] Cardiology Nurse) To: ALEISHA GOLDEN MD; Sent: 08/14/2014 07:35:35 CDT Subject: RE: *General Message Thanks - I will call her and schedule an appt. Addendum by ALEISHA GOLDEN MD on 13 August 2014 15:21:40 CDT From: ALEISHA GOLDEN MD To: [place] Cardiology Nurse; Sent: 08/13/2014 15:21:40 CDT Subject: RE: *General Message Spoke with patient re: echo results and worsening aortic regurgitation. She reports that she has felt like something has not been right. We will have her see cardiology. She states that they may be at the cabin for the next couple days and she can be reached at [phone] which is her Rickey's cell phone. Addendum by ALEISHA GOLDEN MD on 12 August 2014 12:06:52 CDT From: ALEISHA GOLDEN MD To: [place] Cardiology Nurse; Sent: 08/12/2014 12:06:52 CDT Subject: RE: *General Message Yes- If we could get her set up with cards that would be great. Thanks, Aleisha From: BATSHEVA NEWBY RN ([place] Cardiology Nurse) To: ALEISHA GOLDEN MD; Cc: JAX DANIEL MD; Sent: 08/12/2014 11:01:39 CDT Subject: *General Message HiJaneth had her echocardiogram done yesterday. The results are available for you to review. She last saw cardiology on 04-29-13. Would you like a follow-up cardiology appt? 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 However, the narrative phrase printed from the coding software may appear abbreviated, or result in slightly different terminology. Revised Coded By: THERESA RODAS Revised Date Saved: 08/25/2014 02:16 pm Source: [employer] Document Id: [id number] documented in this encounter Plan of Treatment Not on filedocumented as of this encounter Visit Diagnoses Not on filedocumented in this encounter
--- OUTSIDE RECORDS SUMMARY | 2022-01-04 09:39 | XMS_ITS | Encounter Summary ---
:1935 Author Organization [facility] Address [address] [place] [address] Care Team Providers Name Role Phone Unavailable Primary Care Provider Unavailable Encounter Details Date Type Department Care Team Description 12/30/2014 Hospital Encounter HX [facility] ED Sandeep Noguera M.D. [address] [place] [address] [phone] (Wo rk) Social History Tobacco Use Types Packs/Day Years Used Date Smoking Tobacco: Never Assessed Sex Assigned at Date Recorded Not on file documented as of this encounter Last Filed Vital Signs Vital Sign Reading Time Taken Comments Blood Pressure 182/50 12/30/2014 8:04 PM CDT Pulse - - Temperature - - Respiratory Rate 21 12/30/2014 8:04 PM CDT Oxygen Saturation - - Inhaled Oxygen Concentration - - Weight 56.5 kg (124 lb 9 oz) 12/30/2014 6:29 PM CDT Height - - Body Mass Index 21.53 12/26/2014 10:04 AM CDT documented in this encounter Discharge Summaries Mohini Ray R.N. - 12/30/2014 8:33 PM CDT ED Discharge Instructions [address] [id number] Name: JUAN J DUENAS Date of : 1935 12:00 AM Visit Date: 12/30/2014 6:20 PM [facility] Number: [id number] Address: [address] [facility] [id number] Primary Care Provider: MGAO GOLDEN MD IMPORTANT: [facility] in [place] would like to thank you for allowing us to assist you with your healthcare needs. The following includes patient education materials and informationregarding your injury/illness. Diagnosis: Encephalopathy Hypertension (HTN) Follow-Up Instructions: With: Address: When: MAGO GOLDEN [address] [place] [address] [place] [address] Business (1) Within 7 - 10 days Comments: For recheck Your Upcoming Appointments: Date Time Location Provider 01/07/2015 08:45 [facility] Family Mago Merritt MD 01/26/2015 07:45 [facility] Family Mago Merritt MD Patient Education Materials: Hypertension, Out Of Control (Established) Your blood pressure was unusually high today. This can occur as a result of missing doses of your blood pressure medicine. Some asthma inhalers, decongestants, diet pills, and street drugs such as cocaine and amphetamine can worsen hypertension. An increase in body weight, increase in salt intake, smok ing, and caffeine are other causes. Emotional upset or acute pain can cause a sudden rapid rise in blood pressure which may return to normal after a period of rest. A normal blood pressure is less than 140/90. The first (top) number is the systolic pressure. The second (bottom) number is the diastolic pressure. Hypertension exists when either the top number is 140or higher, OR the bottom number is 90 or higher on repeated measurements. Home Care: All patients with high blood pressure should do the following to lower their pressure. If you are onblood pressure medicines, then these methods may reduce or eliminate your need for medicines in the future. Begin a weight-loss program if you are overweight. Reduce your salt intake. ?? Avoid high-salt foods (olives, pickles, smoked meats, salted potato chips, etc.). ?? Do not add salt to your food at the table. ?? Use only small amounts of salt when cooking. Begin an exercise program. Discuss with your doctor what type of exercise program would be best for you. It doesnt have to be difficult. Even brisk walking for 20 minutes 3 times a week is a good form of exercise. Avoid medicines which contain heart stimulants. This includes many cold and sinus decongestant pillsand sprays as well as diet pills. Check the warnings about hypertension on the label. Stimulants such as amphetamine or cocaine could be lethal for someone with hypertension. Never take these. Limit your caffeine intake or switch to decaf. Stop smoking. If you are a long-time smoker, this can be hard. Enroll in a stop- smoking program to improve your chance of success. Talk to your physician about ways to improve your chance of success. Learning how to handle stress better is an important part of any program to lower blood pressure. Learn about relaxation methods such as meditation, yoga, or biofeedback. If medicines were prescribed, take them exactly as directed. Missing doses may cause your blood pressure to get out of control. Consider buying an automatic blood pressure machine (available at many pharmacies). Use this to monitor your blood pressure and report to your doctor. Follow Up: Regular visits to your own doctor for blood pressure checks and medicine adjustment is an important part of your care. Make a follow-up appointment as directed by our staff. Get Prompt Medical Attention if any of the following occur: ?? Chest, arm, shoulder, neck, or upper back pain ?? Shortness of breath ?? Severe headache ?? Throbbing or rushing sound in the ears ?? Nosebleed ?? Extreme drowsiness, confusion, or fainting ?? Dizziness or vertigo (dizziness with spinning sensation) ?? Weakness of an arm or leg or one side of the face ?? Difficulty with speech or vision ?? [phone] [facility], [address] [place] [address], [place] [address]. All rights reserved. This information is not [...] you dont have one. Go to [email or web address] and click on Create Your Account. Then, follow the directions to complete the online form. Youll be asked for your [facility] number which you can find at the top of this document. ED Tests and Procedures: inOrder Status Automated Diff-5 Part Completed CBC (includes Auto Differential) Completed Basic Metabolic Panel Completed Troponin T Completed Urinalysis with Microscopic Completed XR Chest 1 view portable Completed Pro B Natriuretic Peptide Completed Discharge Prescriptions & Home Medications: Medication/Strength Dose Route Frequency Indications/Special Instructions/Comments/Notes donepezil (Aricept 5 mg oral tablet) 5 mg Oral once a day (at bedtime) memory *potassium chloride (K-Dur 10 oral tablet, extended release) [...] arrange a ride home with a responsible republican. CLAIRE Calvillo CAROL LAVONNE or responsible republican have received this information and my questions [...] arrange a ride home with a responsible republican. CLAIRE Calvillo CAROL LAVONNE or responsible republican have received this information and my questions have been answered. I have discussed any challenges I see with this plan with the nurse or physician. Patient Signature or Responsible Libertarian/Relationship Date Time Provider Signature Date Time This document has images extracted. Please consider using [employer] for all your patient education needs. Source: [facility] POWERCHART Document Id: [id number] Mohini Ray RScott. - 12/30/2014 8:33 PM CDT ED Depart Summary [facility] Clinical Discharge Summary PERSON INFORMATION Name JUAN J DUENAS Age 79 Years 1935 12:00 AM Sex Female Language Urdu PCP MAGO GOLDEN MD Marital Status Visit Id Visit Reason High blood pressure; Vomiting; HEADACHE/BP/VOMITING Specialty Enc Type Emergency Med Service Emergency Medicine Referred by Track Group [facility] ED Discharge 12/30/2014 8:25 PM Tracking Id [id number] Checkout 12/30/2014 8:25 PM Checkin 12/30/2014 6:20 PM Acuity 3 -Urgent Dispo Type * Discharged to Home or Self Care Arrival 12/30/2014 6:20 PM Reg Status Complete LOS 000 02:05 Address: [address] [place] [phone] Comment: PROVIDER INFORMATION Provider Role Provider Contact Time DESHAWN NOGUERA MD ED Provider 12/30/14 19:18 MOHINI RAY BEVERAGE DISTILLER Nurse 12/30/14 19:30 DIAGNOSIS Encephalopathy Hypertension (HTN) Comment: PATIENT EDUCATION INFORMATION Instructions: HYPERTENSION, Established, Out of Control Follow up: With: Address: When: MAGO GOLDEN [address] [place] [phone] Business (1) Within 7 - 10 days Comments: For recheck Source: [facility] Document Id: [id number] documented in this encounter Medications at Time of Discharge Medication Sig Dispensed Refills Start Date End Date aspirin [address] tablet Take 1 tablet by 0 201401/21/2019 mouth daily. biotin 10,000 mcg Take by mouth daily. 0 08/26/19 15 05/30/2018 tablet,disintegrating CALCIUM CARB/VIT Take by mouth daily. 0 1 01/21/2019 D3/MINERALS (CALCIUM-VITAMIN D ORAL) [id number] Take 1 capsule by 0 011 05/30/2018 oil 1,400 mg/5 mL liquid mouth daily. documented as of this encounter ED Notes Mohini Ray R.N. - 12/30/2014 8:10 PM CDT ED Disposition Summary ED Disposition Summary Entered On: 12/30/2014 20:10 CDT Performed On: 12/30/2014 20:10 CDT by MOHINI RAY RN ED Disposition Summary Accompanied By : Other: daughter in law Mode of Discharge : Ambulatory Transportation : Private vehicle Discharge From ED With : Home Med List Printed Discharge Instructions Given to Patient : Yes Patient Status at Discharge from ED : Improved MOHINI RAY RN - 12/30/2014 20:10 CDT [facility] Document Id: [id number] CDT!8 Mohini Ray R.N. - 12/30/2014 8:06 PM CDT ED Pain Assessment ED Pain Assessment Entered On: 12/30/2014 20:06 CDT Performed On: 12/30/2014 20:06 CDT by MOHINI RAY RN Pain Assessment Pain Symptoms : Yes MOHINI RAY RN - 12/30/2014 20:06 CDT Pain Scale Pain Scale Verbal 0-10 : Open MOHINI RAY RN - 12/30/2014 20:06 CDT Pain Pain Assessment Grid Pain 1 Location : Head Intensity : 5 MOHINI RAY RN - 12/30/2014 20:06 CDT Source: [employer] Document Id: [id number] CDT!10 Mohini Ray R.N. - 12/30/2014 8:06 PM CDT ED Treatments and Procedures ED Treatments and Procedures Entered On: 12/30/2014 20:09 CDT Performed On: 12/30/2014 20:06 CDT by MOHINI RAY RN Cardiac Monitoring Monitoring Lead : II Monitoring Lead Battery Filler : Discontinued Cardiac Rhythm Tech : Sinus rhythm MOHINI RAY RN - 12/30/2014 20:06 CDT Peripheral IV Peripheral IV Assess/Intervention Grid Peripheral IV #1 Peripheral IV #2 IV Activity : Attempts/unsuccessful Discontinue Removal : Catheter intact, Hemostasis within expected timeframe Number of Attempts : 1 1 Date of Insertion : 12/30/2014 CDT 12/30/2014 CDT IV Site : Antecubital Radial Laterality : Right Right Catheter Size : 18 20 Catheter Type : Over the needle Primary Tubing Changed : 12/30/2014 CDT MOHINI RAY RN - 12/30/2014 20:06 CDT MOHINI RAY RN - 12/30/2014 20:06 CDT Source: [employer] Document Id: [id number] CDT!24 Mohini Ray R.N. - 12/30/2014 7:32 PM CDT ED Nurse Reassess ED Nurse Reassess Entered On: 12/30/2014 19:33 CDT Performed On: 12/30/2014 19:32 CDT by MOHINI RAY RN Pain Assessment Pain Symptoms : Yes MOHINI RAY RN - 12/30/2014 19:32 CDT Pain Scale Pain Scale Verbal 0-10 : Open MOHINI RAY RN - 12/30/2014 19:32 CDT Pain Pain Assessment Grid Pain 1 Location : Head Intensity : 7 MOHINI RAY RAMON - 12/30/2014 19:32 CDT Resp Reassess Respiratory Patient Stated Symptoms : None MOHINI RAY RN - 12/30/2014 19:32 CDT CV Reassess CV Patient Stated Symptoms : None MOHINI RAY RN - 12/30/2014 19:32 CDT Neuro Reassess Last Well Time Known : Not applicable Orientation : Oriented x 3 Characteristics of Speech : Appropriate for age Level of Consciousness : Alert Neuro Patient Stated Symptoms : Headache Gait : Steady MOHINI RAY RN - 12/30/2014 19:32 CDT [place] Coma Eye Opening Response [place] : Spontaneously Best Verbal Response [place] : Oriented Best Motor Response Izabella : Obeys simple commands [place] Coma Score : 15 MOHINI RAY RN - 12/30/2014 19:32 CDT Behavioral Health Screen/Safety Reassmt Affect/Behavior : Calm, Cooperative, Appropriate MOHINI RAY RN - 12/30/2014 19:32 CDT GI Reassess GI Patient Stated Symptoms : None MOHINI RAY RN - 12/30/2014 19:32 CDT /OB Reassess Patient Stated Symptoms : None MOHINI RAY Abdelrahman NAVARRO - 12/30/2014 19:32 CDT Source: [facility] POWERCHART Document Id: [id number] CDT!32 Deshawn Noguera M.D. - 12/30/2014 7:16 PM CDT High blood pressure Document Contains Addenda Addendum by DESHAWN NOGUERA MD on 31 December 2014 0:41 CDT * [employer] Test Reason : EKG Blood Pressure : / mmHG Vent. Rate : 063 BPM Atrial Rate : 063 BPM P-R Int : 152 ms QRS Dur : 096 ms QT Int : 442 ms P-R-T Axes : -24 -02 000 degrees QTc Int : 452 ms Normal sinus rhythm Voltage criteria for left ventricular hypertrophy Nonspecific ST abnormality No previous ECGs available Referred By: ALEX RUBY Confirmed By:GIRISH MESSINA MD *Insert Addendum Here: * [employer] Test Reason : EKG Blood Pressure : / mmHG Vent. Rate : 063 BPM Atrial Rate : 063 BPM P-R Int : 152 ms QRS Dur : 096 ms QT Int : 442 ms P-R-T Axes : -24 -02 000 degrees QTc Int : 452 ms Normal sinus rhythm Voltage criteria for left ventricular hypertrophy Nonspecific ST abnormality No previous ECGs available Referred By: ALEX RUBY Confirmed By:GIRISH MESSINA MD *Insert Addendum Here: * [employer] Test Reason : EKG Blood Pressure : / mmHG Vent. Rate : 063 BPM Atrial Rate : 063 BPM P-R Int : 152 ms QRS Dur : 096 ms QT Int : 442 ms P-R-T Axes : -24 -02 000 degrees QTc Int : 452 ms Normal sinus rhythm Voltage criteria for left ventricular hypertrophy Nonspecific ST abnormality No previous ECGs available Referred By: ALEX RUBY Confirmed By:GIRISH MESSINA MD *Insert Addendum Here: Electronically Signed By: DESHAWN NOGUERA MD On: 12/30/2014 08:00 PM Modified by and Electronically Signed by: DESHAWN NOGUERA MD On: 12/30/2014 08:00 PM Modified by and Electronically Signed by: DESHAWN NOGUERA MD On: 12/31/2014 12:41 AM High blood pressure Patient: JUAN J DUENAS Age: 79 years Sex: Female : 1935 Author: DESHAWN NOGUERA MD Attachments: None Associated Diagnosis: Encephalopathy Hypertension (HTN) Basic Information History source: Patient, daughter. Arrival mode: Private vehicle, walking. History limitation: None. Additional information: Chief Complaint from Nursing Triage Note : Chief Complaint Description 12/30/2014 18:50 CDT Chief Complaint Description See Triage Note 12/30/2014 18:29 CDT Chief Complaint Description 79 yo female presents to the ED via private vehicleaccompanied with her daughter in law with c/o high BP 187/75, vomiting, and headache which started this morning. . History of Present Illness Pt awoke at 0700am with a dull frontal CM. Has taken Tylenol over the course of the day and this hasdecreased it somewhat. Around 1100am, pt began vomiting. Has had 3 episodes, the last just [place]. On arrival to the ED, BP is elevated as her daughter suspected. PT denies CP. Denies f/c/s. No recent URIsxs. Denies sinus pain/pressure or congestion. Denies cough or SOB, difficulty breathing. Norm BM today. Denies numbness/tingling/weaknes. No syncopal episodes. Pt was seen in this ED on 12/23/14 for CP. Found to have CHF per CT scan. Started on Lasix. Was given a K+ supplement but doesn't recall if she has been taking it or not. Was seen for f/u in clinic on 12/26/14 and was prescribed a Medrol dose pack for sciatic pain. Has taken 2 days doses. Review of Systems Constitutional symptoms: No fever or no chills. Skin symptoms: Negative except as documented in HPI. Eye symptoms: Negative except as documented in HPI. ENMT symptoms: No ear pain, no sore throat, no nasal congestion or no sinus pain. Respiratory symptoms: No shortness of breath or no cough. Cardiovascular symptoms: No chest pain or no palpitations. Gastrointestinal symptoms: Nausea and vomiting, but no abdominal pain, no diarrhea or no constipation. Genitourinary symptoms: Negative except as documented in HPI. Musculoskeletal symptoms: Negative except as documented in HPI. Neurologic symptoms: Headache, but no dizziness, no altered level of consciousness, no numbness, no tingling or no weakness. Psychiatric symptoms: Negative except as documented in HPI. Endocrine symptoms: Negative except as documented in HPI. Hematologic/Lymphatic symptoms: Negative except as documented in HPI. Allergy/immunologic symptoms: Negative except as documented in HPI. Health Status Allergies: Allergic Reactions (Selected) Severity Not Documented Lisinopril- No reactions were documented.. Medications: (Selected) Inpatient Medications Ordered Sodium Chloride 0.9% 1,000 mL: 150 mL/hr, IV Zofran: 4 mg, 2 mL, IV Push, Once cloNIDine: 0.1 mg, 1 tab(s), PO, Once Prescriptions Prescribed Aricept 5 mg oral tablet: 5 mg, 1 tab(s), PO, Bedtime, memory, 30 tab(s), 11 Refill(s) K-Dur 10 oral tablet, extended release: 10 meq, 1 tab(s), PO, Daily, 30 tab(s), 1 Refill(s) Lasix 20 mg oral tablet: 20 mg, 1 tab(s), PO, Daily, 60 tab(s), 1 Refill(s) Medrol Dosepak 4 mg oral tablet: See special instructions, PO, As Directed, for 6 day(s), 21 tab(s),0 Refill(s) Zoloft 50 mg oral tablet: 50 mg, 1 tab(s), PO, Daily, anxiety, 30 tab(s), 11 Refill(s) atenolol 50 mg oral tablet: 50 mg, 1 tab(s), PO, Daily, high blood pressure, 90 tab(s), 3 Refill(s) losartan 100 mg oral tablet: 100 mg, 1 tab(s), PO, Daily, high blood pressure, 90 tab(s), 3 Refill(s) Documented Medications Documented Biotin Forte oral tablet: 10,000 mcg, PO, Daily Calcium 600+D: 1 tab, PO, Daily Fish Oil oral capsule: 1 cap(s), PO, Daily, 1400 mg, 100 cap(s) aspirin 81 mg oral tablet: 81 mg, 1 tab(s), PO, Daily. Past Medical/ Family/ Social History Medical history: Active Hypertension (ICD-9-CM 401.9): Onset in 1990 at 55 years. Resolved Tick Bite (ICD-9-CM 919.4): Onset on 05/25/2011 at 76 years. Resolved.. Surgical history: Colonoscopy ([id number]) on 08/28/2013 at 78 Years. Echocardiogram ([id number]) on 06/06/2013 at 78 Years. Colonoscopy ([id number]) on 11/08/2006 at 71 Years. Comments: 01/28/2011 08:40 - GINNA TEJADA MD, Dr in [place] One sessile polyp recommended repeat in 5 years [facility] COLONOSCOPY W SNARE REMOVAL TUMOR/POLYP/LESION - 11/08/06 on 11/08/2006 at 71 Years. Hysterectomy ([id number]) in 1975 at 41 Years. C TOTAL ABDOM HYSTERECTOMY - 1969's - Hysterectomy, Total Abdominal (bleeding) - benign on .. Family history: Diabetes mellitus Mother () Hypertension Mother () Father () Son Alzheimer's disease Father () . Social history: Alcohol use: Denies, Tobacco use: Denies, Drug use: Denies. Problem list: All Problems Hypertension / 401.9 / Confirmed Aortic insufficiency / 424.1 / Confirmed Gout NOS / 274.9 / Confirmed Pure Hypercholesterolemia / 272.0 / Confirmed. Physical Examination Vital Signs: Vital Signs 12/30/2014 19:04 CDT Apical Heart Rate 63 /min Respiratory Rate 19 /min SpO2 95 % Systolic Blood Pressure 183 mmHg >HHI Diastolic Blood Pressure 52 mmHg BP Location Left upper 12/30/2014 18:50 CDT Apical Heart Rate 67 /min Respiratory Rate 17 /min SpO2 98 % Systolic Blood Pressure 210 mmHg >HHI Diastolic Blood Pressure 55 mmHg Mean Arterial Pressure 107 mmHg BP Location Left upper 12/30/2014 18:41 CDT Apical Heart Rate 66 /min Respiratory Rate 20 /min SpO2 95 % Systolic Blood Pressure 209 mmHg >HHI Diastolic Blood Pressure 57 mmHg BP Location Left upper 12/30/2014 18:29 CDT Temperature Core 36.2 DegC LOW Apical Heart Rate 65 /min Respiratory Rate 18 /min SpO2 96 % Systolic Blood Pressure 220 mmHg >HHI Diastolic Blood Pressure 62 mmHg Mean Arterial Pressure 115 mmHg BP Location Left upper , Measurements 12/30/2014 18:29 CDT Dosing Weight 56.50 kg Actual Weight 56.5 kg Weight Source Standing scale , SpO2 12/30/2014 19:04 CDT SpO2 95 % 12/30/2014 18:50 CDT SpO2 98 % 12/30/2014 18:41 CDT SpO2 95 % 12/30/2014 18:29 CDT SpO2 96 % . General: Alert and no acute distress. Skin: Warm and dry. Head: Normocephalic and atraumatic. Eye: Extraocular movements are intact and normal conjunctiva. Ears, nose, mouth and throat: Oral mucosa moist. Cardiovascular: Regular rate and rhythm, Normal peripheral perfusion and No edema. Respiratory: Lungs are clear to auscultation, respirations are non-labored, breath sounds are equal and Symmetrical chest wall expansion. Chest wall: No tenderness. Gastrointestinal: Soft, Nontender and Non distended. Neurological: Normal sensory observed, normal motor observed, normal speech observed and normal coordination observed. Psychiatric: Cooperative and appropriate mood & affect. Medical Decision Making Differential Diagnosis:Uncontrolled hypertension, medication reaction. Documents reviewed:Emergency department nurses' notes, emergency department records, prior records. Orders Electrocardiogram:Normal sinus rhythm, No ST-T changes. Results review:Lab results : Lab View 12/30/2014 19:01 CDT Hgb 13.8 g/dL Hct 41.2 % WBC 9.9 x10(9)/L RBC 4.64 x10(12)/L MCV 88.8 fL RDW 11.8 % LOW Platelet 364 x10(9)/L Neutro Absolute 7.05 10(9)/L HI Lymph Absolute 1.90 x10(9)/L Yancey Absolute 0.87 x10(9)/L Eos Absolute 0.07 x10(9)/L Baso Absolute 0.04 x10(9)/L Differential? Auto . Radiology results:X-ray. Reexamination/ Reevaluation Vital signs results included from flowsheet : Vital Signs 12/30/2014 19:04 CDT Apical Heart Rate 63 /min Respiratory Rate 19 /min SpO2 95 % Systolic Blood Pressure 183 mmHg >HHI Diastolic Blood Pressure 52 mmHg BP Location Left upper 12/30/2014 18:50 CDT Apical Heart Rate 67 /min Respiratory Rate 17 /min SpO2 98 % Systolic Blood Pressure 210 mmHg >HHI Diastolic Blood Pressure 55 mmHg Mean Arterial Pressure 107 mmHg BP Location Left upper 12/30/2014 18:41 CDT Apical Heart Rate 66 /min Respiratory Rate 20 /min SpO2 95 % Systolic Blood Pressure 209 mmHg >HHI Diastolic Blood Pressure 57 mmHg BP Location Left upper 12/30/2014 18:29 CDT Temperature Core 36.2 DegC LOW Apical Heart Rate 65 /min Respiratory Rate 18 /min SpO2 96 % Systolic Blood Pressure 220 mmHg >HHI Diastolic Blood Pressure 62 mmHg Mean Arterial Pressure 115 mmHg BP Location Left upper Course: improving. Pain status: decreased. Assessment: exam improved. Impression and Plan Diagnosis Encephalopathy Hypertension (HTN) (Discharge, Emergency medicine, Medical) Plan Condition: Improved, Stable. Disposition: Discharged: to home, Patient care transitioned to: Time: 12/30/2014 19:05:00, DESHAWN NOGUERA MD. Prescriptions: comfirmed compliance with pill counts. Patient was given the following educational materials: HYPERTENSION, Established, Out of Control. Follow up with: MAGO GOLDEN Within 7 - 10 days For recheck. Counseled: Patient, Regarding diagnosis, Regarding diagnostic results, Regarding treatment plan, Regarding prescription, Patient indicated understanding of instructions. Notes: Stop medrol dose pack.. Electronically Signed By: DESHAWN NOGUERA MD On: 12/30/2014 08:00 PM Modified by and Electronically Signed by: DESHAWN NOGUERA MD On: 12/30/2014 08:00 PM Source: [employer] Document Id: [id number]} Mohini Ray RMatti - 12/30/2014 7:03 PM CDT ED Treatments and Procedures ED Treatments and Procedures Entered On: 12/30/2014 19:04 CDT Performed On: 12/30/2014 19:03 CDT by MOHINI RAY RN Peripheral IV Peripheral IV Assess/Intervention Grid Peripheral IV #1 Peripheral IV #2 IV Activity : Attempts/unsuccessful Start Removal : Catheter intact, Hemostasis within expected timeframe Number of Attempts : 1 1 Date of Insertion : 12/30/2014 CDT 12/30/2014 CDT IV Site : Antecubital Radial Laterality : Right Right Catheter Size : 18 20 Catheter Type : Over the needle Site Condition : No complications Drainage Description : None Primary Tubing Changed : 12/30/2014 CDT Site/Line Care : Secured with tape Dressing/ Activity : Dry, Intact, Transparent Flow/ Patency : No complications IV Equipment/Supplies : Extension, set MOHINI RAY RN - 12/30/2014 19:03 CDT MOHINI RAY RN - 12/30/2014 19:03 CDT Source: [employer] Document Id: [id number] CDT!26 Alex Gardner P.A.-C. - 12/30/2014 6:52 PM CDT High blood pressure Patient: JUAN J DUENAS Age: 79 years Sex: Female : 1935 Author: ALEX RUBY Attachments: None Basic Information History source: Patient, daughter. Arrival mode: Private vehicle, walking. History limitation: None. Additional information: Chief Complaint from Nursing Triage Note : Chief Complaint Description 12/30/2014 18:29 CDT Chief Complaint Description 79 yo female presents to the ED via private vehicleaccompanied with her daughter in law with c/o high BP 187/75, vomiting, and headache which started this morning. . History of Present Illness Pt awoke at 0700am with a dull frontal CM. Has taken Tylenol over the course of the day and this hasdecreased it somewhat. Around 1100am, pt began vomiting. Has had 3 episodes, the last just [place]. On arrival to the ED, BP is elevated as her daughter suspected. PT denies CP. Denies f/c/s. No recent URIsxs. Denies sinus pain/pressure or congestion. Denies cough or SOB, difficulty breathing. Norm BM today. Denies numbness/tingling/weaknes. No syncopal episodes. Pt was seen in this ED on 12/23/14 for CP. Found to have CHF per CT scan. Started on Lasix. Was given a K+ supplement but doesn't recall if she has been taking it or not. Was seen for f/u in clinic on 12/26/14 and was prescribed a Medrol dose pack for sciatic pain. Has taken 2 days doses. Review of Systems Constitutional symptoms: No fever or no chills. Skin symptoms: Negative except as documented in HPI. Eye symptoms: Negative except as documented in HPI. ENMT symptoms: No ear pain, no sore throat, no nasal congestion or no sinus pain. Respiratory symptoms: No shortness of breath or no cough. Cardiovascular symptoms: No chest pain or no palpitations. Gastrointestinal symptoms: Nausea and vomiting, but no abdominal pain, no diarrhea or no constipation. Genitourinary symptoms: Negative except as documented in HPI. Musculoskeletal symptoms: Negative except as documented in HPI. Neurologic symptoms: Headache, but no dizziness, no altered level of consciousness, no numbness, no tingling or no weakness. Psychiatric symptoms: Negative except as documented in HPI. Endocrine symptoms: Negative except as documented in HPI. Hematologic/Lymphatic symptoms: Negative except as documented in HPI. Allergy/immunologic symptoms: Negative except as documented in HPI. Health Status Allergies: Allergic Reactions (Selected) Severity Not Documented Lisinopril- No reactions were documented.. Medications: (Selected) Prescriptions Prescribed Aricept 5 mg oral tablet: 5 mg, 1 tab(s), PO, Bedtime, memory, 30 tab(s), 11 Refill(s) K-Dur 10 oral tablet, extended release: 10 meq, 1 tab(s), PO, Daily, 30 tab(s), 1 Refill(s) Lasix 20 mg oral tablet: 20 mg, 1 tab(s), PO, Daily, 60 tab(s), 1 Refill(s) Medrol Dosepak 4 mg oral tablet: See special instructions, PO, As Directed, for 6 day(s), 21 tab(s),0 Refill(s) Zoloft 50 mg oral tablet: 50 mg, 1 tab(s), PO, Daily, anxiety, 30 tab(s), 11 Refill(s) atenolol 50 mg oral tablet: 50 mg, 1 tab(s), PO, Daily, high blood pressure, 90 tab(s), 3 Refill(s) losartan 100 mg oral tablet: 100 mg, 1 tab(s), PO, Daily, high blood pressure, 90 tab(s), 3 Refill(s) Documented Medications Documented Biotin Forte oral tablet: 10,000 mcg, PO, Daily Calcium 600+D: 1 tab, PO, Daily Fish Oil oral capsule: 1 cap(s), PO, Daily, 1400 mg, 100 cap(s) aspirin 81 mg oral tablet: 81 mg, 1 tab(s), PO, Daily. Past Medical/ Family/ Social History Medical history: Active Hypertension (401.9): Onset in 1990 at 55 years. Resolved Tick Bite (919.4): Onset on 05/25/2011 at 76 years. Resolved.. Surgical history: Colonoscopy ([id number]) on 08/28/2013 at 78 Years. Echocardiogram ([id number]) on 06/06/2013 at 78 Years. Colonoscopy ([id number]) on 11/08/2006 at 71 Years. Comments: 01/28/2011 08:40 - GINNA TEJADA MD, Dr in [place] One sessile polyp recommended repeat in 5 years [facility] COLONOSCOPY W SNARE REMOVAL TUMOR/POLYP/LESION - 11/08/06 on 11/08/2006 at 71 Years. Hysterectomy ([id number]) in 1975 at 41 Years. C TOTAL ABDOM HYSTERECTOMY - 1969' - Hysterectomy, Total Abdominal (bleeding) - benign on .. Family history: Diabetes mellitus Mother () Hypertension Mother () Father () Son Alzheimer's disease Father () . Social history: Alcohol use: Denies, Tobacco use: Denies, Drug use: Denies. Problem list: All Problems (Selected) Pure Hypercholesterolemia / 272.0 / Confirmed Gout NOS / 274.9 / Confirmed Hypertension / 401.9 / Confirmed Aortic insufficiency / 424.1 / Confirmed. Physical Examination Vital Signs: Vital Signs 12/30/2014 18:41 CDT Apical Heart Rate 66 /min Respiratory Rate 20 /min SpO2 95 % Systolic Blood Pressure 209 mmHg >HHI Diastolic Blood Pressure 57 mmHg BP Location Left upper 12/30/2014 18:29 CDT Temperature Core 36.2 DegC LOW Apical Heart Rate 65 /min Respiratory Rate 18 /min SpO2 96 % Systolic Blood Pressure 220 mmHg >HHI Diastolic Blood Pressure 62 mmHg Mean Arterial Pressure 115 mmHg BP Location Left upper . General: Alert and no acute distress. Skin: Warm and dry. Head: Normocephalic and atraumatic. Eye: Extraocular movements are intact and normal conjunctiva. Ears, nose, mouth and throat: Oral mucosa moist. Cardiovascular: Regular rate and rhythm, Normal peripheral perfusion and No edema. Respiratory: Lungs are clear to auscultation, respirations are non-labored, breath sounds are equal and Symmetrical chest wall expansion. Chest wall: No tenderness. Gastrointestinal: Soft, Nontender and Non distended. Neurological: Normal sensory observed, normal motor observed, normal speech observed and normal coordination observed. Psychiatric: Cooperative and appropriate mood & affect. Medical Decision Making Differential Diagnosis:Uncontrolled hypertension, medication reaction. Documents reviewed:Emergency department nurses' notes, emergency department records, prior records. OrdersLaunch Orders Laboratory: Pro B Natriuretic Peptide (Order Processing): Stat, 12/30/2014 18:54 CDT, Once Urinalysis with Microscopic (Order Processing): Stat, 12/30/2014 18:53 CDT, Once, Urine, Clean Void (Midstream) Troponin T (Order Processing): Stat, 12/30/2014 18:53 CDT, Once Basic Metabolic Panel (Order Processing): Stat, 12/30/2014 18:53 CDT, Once CBC (includes Auto Differential) (Order Processing): Stat, 12/30/2014 18:53 CDT, Once Pharmacy: Sodium Chloride 0.9% 1000 mL (Order Processing): 150 mL/hr, IV Radiology: XR Chest 1 view portable (Order Processing): 12/30/2014 18:54 CDT, HTN, CP work up, Stat, Patient Bed, Once, 12/30/2014 18:54 CDT, [facility] Diagnostic Tests: EKG (Order Processing): 12/30/2014 18:53 CDT, Reason: EKG, Stat, Stat, [facility], Launch Orders Pharmacy: cloNIDine (Order Processing): 0.1 mg, PO, Once, Launch Orders Pharmacy: Zofran (Order Processing): 4 mg, IV Push, Once. Impression and Plan Plan Disposition: Patient care transitioned to: Time: 12/30/2014 19:05:00, DESHAWN NOGUERA MD. Notes: Stop medrol dose pack.. Electronically Signed By: ALEX RUBY On: 12/30/2014 07:06 PM Co-Signed By: MARISOL MCFADDEN MD On: 12/31/2014 08:20 AM Source: [facility] POWERCHART Document Id: [id number]} Mohini Ray RKaiNKai - 12/30/2014 6:50 PM CDT ED Primary Assessment Document Has Been Updated ED Primary Assessment Entered On: 12/30/2014 18:54 CDT Performed On: 12/30/2014 18:50 CDT by MOHINI RAY RN Reason For Visit (As Of: 12/30/2014 18:54:41 CDT) Problems(Active) Aortic insufficiency (ICD-9-CM :424.1 ) Name of Problem: Aortic insufficiency ; Onset Date: 10/20/2011 ; Recorder: BATSHEVA NEWBY RN; Confirmation: Confirmed ; Classification: Nursing ; Code: 424.1; Contributor System: [employer] ; Last Updated: 12/06/2011 10:38 CDT ; Life Cycle Date: 11/01/2011 ; Life Cycle Status: Active ; Responsible Provider: BATSHEVA NEWBY RN; Vocabulary: ICD-9-CM ; Comments: 12/06/2011 8:34 - RUBENS AGUILAR LPN unknown date of dx 12/06/2011 10:38 - HUBER CORRALES DNP, HIV NURSE stress test Gout NOS (ICD-9-CM :274.9 ) [...] Medical ; Code: 272.0 ; Contributor System: [facility]PLOAD ; Last Updated: 06/01/2013 18:11 CDT ; Life Cycle Status: Active ; Vocabulary: ICD-9-CM ; Comments: - Pure hypercholesterolemia Diagnoses(Active) High blood pressure Date: 12/30/2014 ; Diagnosis Type: Reason For Visit ; Confirmation: Confirmed ; Clinical Dx: High blood pressure ; Classification: Medical ; Clinical Service: Emergency medicine ; Code: PNED ; Probability: 0 ; Diagnosis Code: [id number] Vomiting Date: 12/30/2014 ; Diagnosis Type: Reason For Visit ; Confirmation: Complaint of ; ClinicalDx: Vomiting ; Classification: Medical ; Clinical Service: Emergency medicine ; Code: PNED ; Probability: 0 ; Diagnosis Code: [id number] Triage Chief Complaint Description : See Triage Note Information Given By : Patient Accompanied By : Other: daughter in law Mode of Arrival ED : Private vehicle Track : Medical Languages : Urdu Patient Informed of Triage Location : Emergency department Vital Signs Assessed : Yes GCS Assessed : Yes Treatments Prior to Arrival : Acetaminophen Is Patient Female and 13-50 no hysterectomy : No MOHINI RAY RN - 12/30/2014 18:50 CDT Vital Signs Apical Heart Rate : 67 /min Respiratory Rate : 17 /min Systolic Blood Pressure : 210 mmHg (>HHI) Diastolic Blood Pressure : 55 mmHg NIBP Mean : 107 mmHg BP Location : Left upper extremity SpO2 : 98 % Oxygen Therapy : Room air MOHINI RAY RN - 12/30/2014 18:50 CDT [place] Coma Eye Opening Response Izabella : Spontaneously Best Verbal Response Izabella : Oriented Best Motor Response [place] : Obeys simple commands Izabella Coma Score : 15 MOHINI RAY RN - 12/30/2014 18:50 CDT Pain Assessment Pain Symptoms : Yes MOHINI RAY RN - 12/30/2014 18:50 CDT ED Physician Notification Time ED Physician Notification Time : 12/23/2014 18:31 CDT MOHINI RAY RN - 12/30/2014 18:50 CDT QUIN QUIN Level 1 : No QUIN Level 2 : No QUIN Level 3 : One MOHINI RAY RN - 12/30/2014 18:50 CDT DCP GENERIC CODE Tracking Acuity : 3 -Urgent Tracking Group : [facility] ED MOHINI RAY RN - 12/30/2014 18:50 CDT Allergy (As Of: 12/30/2014 18:54:41 CDT) Allergies (Active) lisinopril Estimated Onset Date: Unspecified ; Comments: Comment 1: Tickle in throat x 3 weeks with no other reason ; Created By: JAX DANIEL MD; Reaction Status: Active ; Category: Drug ; Substance: lisinopril ; Type: Allergy ; Updated By: JAX DANIEL MD; Reviewed Date: 12/30/2014 18:51CDT ID Screen Drug Resistant Organism : No MOHINI RAY RN - 12/30/2014 18:50 CDT Respiratory Airway : Patent Respirations : Unlabored Respiratory Pattern : Regular Oxygen Therapy : Room air Respiratory Detailed Assessment : Yes MOHINI RAY RN - 12/30/2014 18:50 CDT Resp Detailed Respiratory Patient Stated Symptoms : None Distress : None Cough : None MOHINI RAY RN - 12/30/2014 18:50 CDT Breath Sounds Assessment Grid ATIYA : Clear RUL : Clear RML : Clear LLL : Clear RLL : Clear MOIHNI RAY RN - 12/30/2014 18:50 CDT Cardiovascular Heart Rhythm : Regular Skin Color : Normal for ethnicity Skin Description : Dry Skin Temperature : Warm Cardiovascular Detailed Assessment : Yes Monitoring Lead : II MOHINI RAY RN - 12/30/2014 18:50 CDT CV Detailed CV Patient Stated Symptoms : None Nail Bed Color : Fleischmanns Capillary Refill : Less than 2 seconds Heart Sounds ICU : S1S2 Cardiac Rhythm : Sinus rhythm Edema Assessment : No MOHINI RAY RN - 12/30/2014 18:50 CDT Neurological Last Well Time Known : Not applicable Level of Consciousness : Alert Orientation : Oriented x 3 Characteristics of Speech : Appropriate for age Neuro Patient Stated Symptoms : Headache Gait : Steady Swallowing Difficulty/Aspiration Risk : None MOHINI RAY RN - 12/30/2014 18:50 CDT ED Psychosocial Affect/Behavior : Calm, Cooperative, Appropriate Domestic Abuse Concerns : None Behavioral Health Screen/Safety Assmt : No Emotional Support Available : Yes MOHINI RAY RN - 12/30/2014 18:50 CDT Gastrointestinal Nutrition ED : Adequate GI Detailed Assessment : Yes MOHINI RAY RN - 12/30/2014 18:50 CDT GI Detailed GI Patient Stated Symptoms : Nausea, Vomiting Frequency of Vomiting : x3 since this morning Abdomen Description : Symmetric Abdomen Palpation : Soft MOHINI RAY RN - 12/30/2014 18:50 CDT Bowel Sounds Grid LUQ : Normoactive RUQ : Normoactive LLQ : Normoactive RLQ : Normoactive MOHINI RAY RN - 12/30/2014 18:50 CDT /OB Assessment Patient Stated Symptoms : None, Other: on lasix patient states she has noted increase in urination MOHINI RAY RN - 12/30/2014 18:50 CDT Integumentary Integumentary Patient Stated Symptoms : None MOHINI RAY RN - 12/30/2014 18:50 CDT Musculoskeletal Fall Prevention Education Provided : Yes MOHINI RAY RN - 12/30/2014 18:50 CDT Social Habits Tobacco Use/Currently Using : No Exposure to Tobacco Smoke : Care provider denies smoking in home, Other: never Smoking Status : Never smoker MOHINI RAY RN - 12/30/2014 18:50 CDT Alcohol Use Grid Alcohol Use : No MOHINI RAY RN - 12/30/2014 18:50 CDT Recreational Drug Use Grid Drug Use : None MOHINI RAY RN - 12/30/2014 18:50 CDT Source: [employer] Document Id: [id number] CDT!112 Mohini Ray R.N. - 12/30/2014 6:31 PM CDT ED Treatments and Procedures ED Treatments and Procedures Entered On: 12/30/2014 18:32 CDT Performed On: 12/30/2014 18:31 CDT by MOHINI RAY RN Cardiac Monitoring Monitoring Lead : II Monitoring Lead Battery Filler : Initiated Cardiac Rhythm Tech : Sinus rhythm MOHINI RAY RN - 12/30/2014 18:31 CDT Source: [employer] Document Id: [id number] CDT!5 Mohini Ray R.N. - 12/30/2014 6:29 PM CDT ED Triage Assessment Document Has Been Updated ED Triage Assessment Entered On: 12/30/2014 18:31 CDT Performed On: 12/30/2014 18:29 CDT by MOHINI RAY RN Reason For Visit (As Of: 12/30/2014 18:31:54 CDT) Problems(Active) Aortic insufficiency (ICD-9-CM :424.1 ) [...] dx 12/06/2011 10:38 - HUBER CORRALES DNP, HIV NURSE stress test Gout NOS (ICD-9-CM :274.9 ) [...] Medical ; Code: 272.0 ; Contributor System: [facility] ; Last Updated: 06/01/2013 18:11 CDT ; Life Cycle Status: Active ; Vocabulary: ICD-9-CM ; Comments: - Pure hypercholesterolemia Diagnoses(Active) Vomiting Date: 12/30/2014 ; Diagnosis Type: Reason For Visit ; Confirmation: Complaint of ; ClinicalDx: Vomiting ; Classification: Medical ; Clinical Service: Emergency medicine ; Code: PNED ; Probability: 0 ; Diagnosis Code: [id number] Triage Chief Complaint Description : 79 yo female presents to the ED via private vehicle accompanied with her daughter in law with c/o high BP 187/75, vomiting, and headache which started this morning. Information Given By : Patient Accompanied By : Other: daughter in law Mode of Arrival ED : Private vehicle Track : Medical Languages : Urdu Patient Informed of Triage Location : Emergency department Vital Signs Assessed : Yes GCS Assessed : Yes Treatments Prior to Arrival : Acetaminophen Is Patient Female and 13-50 no hysterectomy : No MOHINI RAY RN - 12/30/2014 18:29 CDT Vital Signs Temperature Core : 36.2 DegC(Converted to: 97.2 DegF) (LOW) Apical Heart Rate : 65 /min Respiratory Rate : 18 /min Systolic Blood Pressure : 220 mmHg (>HHI) Diastolic Blood Pressure : 62 mmHg NIBP Mean : 115 mmHg BP Location : Left upper extremity SpO2 : 96 % Oxygen Therapy : Room air Actual Weight : 56.5 kg Actual Weight Conversion to Pounds : 124.3 lb Weight Source : Standing scale MOHINI RAY RN - 12/30/2014 18:29 CDT [place] Coma Eye Opening Response Izabella : Spontaneously Best Verbal Response [place] : Oriented Best Motor Response Izabella : Obeys simple commands [place] Coma Score : 15 MOHINI RAY RN - 12/30/2014 18:29 CDT Pain Assessment Pain Symptoms : Yes MOHINI RAY RN - 12/30/2014 18:29 CDT Pain Scale Pain Scale Verbal 0-10 : Open MOHINI RAY RN - 12/30/2014 18:29 CDT Pain Pain Assessment Grid Pain 1 Location : Head Laterality : Bilateral Intensity : 8 MOHINI RAY RN - 12/30/2014 18:29 CDT ED Physician Notification Time ED Physician Notification Time : 12/23/2014 18:31 CDT MOHINI RAY RN - 12/30/2014 18:29 CDT QUIN QUIN Level 1 : No QUIN Level 2 : No QUIN Level 3 : One MOHINI RAY RN - 12/30/2014 18:29 CDT DCP GENERIC CODE Tracking Acuity : 3 -Urgent Tracking Group : [facility] ED MOHINI RAY RN - 12/30/2014 18:29 CDT Allergy (As Of: 12/30/2014 18:31:54 CDT) Allergies (Active) lisinopril Estimated Onset Date: Unspecified ; Comments: Comment 1: Tickle in throat x 3 weeks with no other reason ; Created By: JAX DANIEL MD; Reaction Status: Active ; Category: Drug ; Substance: lisinopril ; Type: Allergy ; Updated By: JAX DANIEL MD; Reviewed Date: 12/30/2014 18:31CDT ID Screen Drug Resistant Organism : No MOHINI RAY RN - 12/30/2014 18:29 CDT Source: [facility] [employer] Document Id: [id number] CDT!52 documented in this encounter Miscellaneous Notes Miscellaneous - Conversion, Historical Provider Ser - 12/30/2014 8:25 PM CDT Coding Summary-Paper Based CODING DATE: 01/17/2015 FINAL [facility] STATUS: * Discharged to Home or Self Care PAYOR: Medicare ADMIT DX: R51 Headache REASON FOR VISIT DX: R51 Headache FINAL DX: PRINCIPAL: I67.4 Hypertensive encephalopathy SECONDARY: E78.0 Pure hypercholesterolemia PROCEDURES DOCTOR NAME DATE NOTE: The code number assigned matches the documented diagnosis and / or procedure in the patient's chart. However, the narrative phrase printed from the coding software may appear abbreviated, or result in slightly different terminology. Coded By: DEANNA RON Date Saved: 01/17/2015 09:05 am [facility] Document Id: [id number] Misalana - Mohini Ray R.N. - 12/30/2014 8:10 PM CDT Valuables/Belongings Valuables/Belongings Entered On: 12/30/2014 20:13 CDT Performed On: 12/30/2014 20:10 CDT by MOHINI RAY RN Valuables/Belongings Belongings Sent Home With : all belongings sent home with patient Home Medication Disposition : Other: Patient and daughter in law requested for remaining medrol dosepack and remaining indomethicin that in 2013 to be exposed in unused medication waste black box. MOHINI RAY RN - 12/30/2014 20:10 CDT Source: [employer] Document Id: [id number] CDT!4 Miscellaneous - Mohini Ray R.N. - 12/30/2014 8:04 PM CDT Discharge Vital Signs Form Discharge Vital Signs Form Entered On: 12/30/2014 20:05 CDT Performed On: 12/30/2014 20:04 CDT by MOHINI RAY RN Vital Signs Temperature Core : 36.2 DegC(Converted to: 97.2 DegF) (LOW) Apical Heart Rate : 62 /min Respiratory Rate : 21 /min (HI) Systolic Blood Pressure : 182 mmHg (>HHI) Diastolic Blood Pressure : 50 mmHg (LOW) NIBP Mean : 94 mmHg BP Location : Left upper extremity SpO2 : 96 % Oxygen Therapy : Room air MOHINI RAY RN - 12/30/2014 20:04 CDT Source: [employer] Document Id: [id number] CDT!11 Miscellaneous - Mohini Ray R.N. - 12/30/2014 6:20 PM CDT Facility Charge Ticket 2.0 11.0 DX Facility Charge Ticket 2.0 11.0 DX Entered On: 12/30/2014 20:13 CDT Performed On: 12/30/2014 18:20 CDT by MOHINI RAY RN Facility Charge Ticket 2.0 11.0 DX ED Other Charges : Standard ED Encounter TVL Level Translated RTF : Vomiting, High blood pressure TVL:4 TVL Level for Facility Charge Ticket : Level 4 Arrival Mode Calc : 129 Mode of Arrival ED : Private vehicle [facility] Mode of Arrival Interpreted : Standard [facility] Process Management : None Order Management RTF : Laboratory CBC (includes Auto Differential),12/30/14 18:53,ALEX RUBY Completed Basic Metabolic Panel,12/30/14 18:53,ALEX RUBY Completed Troponin T,12/30/14 18:53,ALEX RUBY Completed Urinalysis with Microscopic,12/30/14 18:53,ALXE RUBY Completed Pro B Natriuretic Peptide,12/30/14 18:54,ALEX RUBY Completed Automated Diff-5 Part,12/30/14 19:06,ALEX RUBY Completed Xray XR Chest 1 view portable,12/30/14 18:54,ALEX RUBY Ordered [facility] Order Management : Lab tests, Xray - plain films 30 Minutes Critical Care : No Nursing Notes RTF : Triage Forms ED Triage Assessment,12/30/14 18:29,MOHINI RAY RN Nursing Notes ED Primary Assessment,12/30/14 18:50,MOHINI RAY RN ED Nurse Reassess,12/30/14 19:32,MOHINI RAY RN ED Pain Assessment,12/30/14 20:06,MOHINI RAY RN [facility] Nursing Assessment : Triage and 3-5 nursing assessments [facility] Disposition : Discharge Disposition RTF : discharge [facility] Total Points with Diagnosis Control : 10 [facility] Visit Level : 52728 Level 4 Treatments Prior to Arrival : Acetaminophen MOHINI RAY RN - 12/30/2014 20:13 CDT Chief Complaint 11.0 Reason For Visit Category : Cardiorespiratory TVL Calculation : 8 ED Chief Complaint Cardiorespiratory 11.0 : Hypertension TVL for Facility Charge Ticket Dx : Level 3 MOHINI RAY RN - 12/30/2014 20:13 CDT Source: [facility] POWERCHART Document Id: [id number] CDT!24 documented in this encounter Plan of Treatment Not on filedocumented as of this encounter Procedures Procedure Name Priority Date/Time Associated Comments Diagnosis URINALYSIS WITH Routine 12/30/2014 7:20 PM Result s for this MICROSCOPIC CDT procedure are i n the results section. AUTOMATED Routine 12/30/2014 7:01 PM Results f or this DIFFERENTIAL, B CDT procedure ar e in the results section. NT-PRO B-TYPE Routine 12/30/2014 7:01 PM Results for this NATRIURETIC PEPTIDE CDT procedur e are in (BNP), S the results section. CBC WITH Routine 12/30/2014 7:01 PM Results f or this DIFFERENTIAL, B CDT procedure ar e in the results section. TROPONIN T, 5TH GEN, Routine 12/30/2014 7:01 PM R esults for this P CDT procedure are i n the results section. BASIC METABOLIC Routine 12/30/2014 7:01 PM Result s for this PANEL, S/P CDT procedure are i n the results section. documented in this encounter Results (ABNORMAL) Urinalysis, Complete, Includes Microscopic (12/30/2014 7:20 PM CDT) [facility] Method Time Signature HXUr Color Yellow Colorless POWERCHART Clarity Clear Clear POWERCHART Glucose Negative Negative POWERCHART MGDL HXBILIRUBIN Small (A) Negative POWERCHART Ketones, QL(U) Negative Negative POWERCHART MGDL Specific 1.025 POWERCHART [place], POCT, U pH, POCT, Urine 5.5 <5.0 POWERCHART Protein, Ur, 100 (A) Negative POWERCHART Dip MGDL Urobilinogen 0.2 0.2 MGDL POWERCHART HXNITRITE Negative Negative POWERCHART HXBLOOD Small (A) Negative POWERCHART Leukocyte Negative Negative POWERCHART Esterase HXUR WBC. Occ-3 None Seen POWERCHART HPF HXUR RBC. Occ-2 None Seen POWERCHART HPF Casts, Hyaline Occasional None Seen POWERCHART (A) LPF Squamous 21-30 (A) None Seen POWERCHART Epithelial HPF Crystals Present (A) None Seen POWERCHART Comment: Amorphous Specimen (Source) Anatomical Collection Method Collection Time Re ceived Time Location / / Volume Laterality Urine, First 12/30/2014 7:20 PM Voided CDT Alex Gardner P.A.-C. LAB URINE ORDERABLES Performing Organization Address City/[facility] Code Phon e Number POWERCHART (ABNORMAL) Automated Differential (12/30/2014 7:01 PM CDT) [employer] Method Time Signature Absolute 7.05 (H) 1.70 - POWERCHART Neutrophils 7.00 109L Lymphocytes 1.90 0.90 - POWERCHART 2.90 X109L Monocytes 0.87 0.30 - POWERCHART 0.90 X109L Eosinophils 0.07 0.05 - POWERCHART 0.50 X109L Absolute 0.04 0.00 - POWERCHART Basophil 0.30 X109L Specimen Anatomical Collection Method Collection Time Receive d Time (Source) Location / / Volume Laterality Blood 12/30/2014 7:01 PM 5 7:01 CDT PM CDT Alex Gardner P.A.-C. LAB BLOOD ADD-ON Performing Organization Address City/[facility] Phon e Number POWERCHART (ABNORMAL) CBC with Differential (12/30/2014 7:01 PM CDT) [employer] Method Time Signature Leukocytes 9.9 3.4 - 10.5 POWERCHART X109L Erythrocytes 4.64 3.90 - POWERCHART 5.03 [id number] Hemoglobin 13.8 12.0 - POWERCHART 15.5 GDL Hematocrit 41.2 34.9 - POWERCHART 44.5 MCV 88.8 82.0 - POWERCHART 98.0 FL HX RDW 11.8 (L) 11.9 - POWERCHART 15.5 Platelet Count 364 150 - 450 POWERCHART X109L HXDifferential? Auto POWERCHART Specimen (Source) Anatomical Collection Method Collection Time Re ceived Time Location / / Volume Laterality Blood 12/30/2014 7:01 PM CDT Alex Gardner P.A.-C. LAB BLOOD ADD-ON Performing Organization Address City/State/ZIP Code Phon e Number POWERCHART (ABNORMAL) NT-Pro B-Type Natriuretic Peptide (BNP) (12/30/2014 7:01 PM CDT) Patholo gist Method Time Signature B-Type 666.70 (H) 10.00 - POWERCHART Natriuretic 244.00 Peptide (BNP) PGML Comment: NT-proBNP values less than 300 pg/mL hav e a 99% negative predictive value for excluding acute congestive heart failure. A cutoff of 1200 pg/mL for patients with an eGFR<60 yields a diagnostic sensitivity and specificity of 89% and 72% for acute congestive heart failure. ? Adults <50 years: ??NT-proBNP values greater than 450 pg/mL are consistent with CHF. ? Adults 50-75 years: ??A diagnostic NT-proBNP cutoff of 900 pg/mL has been suggested in the absence of renal failure. ? Adults >75 years: ??A diagnostic NT-proBNP cutoff of 1800 pg/mL has been suggested in the absence of renal failure. Specimen (Source) Anatomical Collection Method Collection Time Re ceived Time Location / / Volume Laterality Blood 12/30/2014 7:01 PM CDT Alex Gardner P.A.-C. LAB BLOOD ADD-ON Performing Organization Address City/State/ZIP Code Phon e Number POWERCHART Troponin T (12/30/2014 7:01 PM CDT) P athologist Signature Troponin T, S <0.01 <=0.01 NGML POWERCHART Comment: 0.03 - 0.1 ng/mL Intermediate Z one Specimen (Source) Anatomical Collection Method Collection Time Re ceived Time Location / / Volume Laterality Blood 12/30/2014 7:01 PM CDT Alex Gardner P.A.-C. LAB BLOOD ADD-ON Performing Organization Address City/State/ZIP Code Phon e Number POWERCHART (ABNORMAL) BMP (Basic Metabolic Panel) (12/30/2014 7:01 PM CDT) [facility] gist Method Time Signature Anion Gap 17 10 - 20 POWERCHART MMOLL BUN (Blood Urea 21 (H) 7 - 18 POWERCHART Nitrogen), S MGDL Chloride, S 96 (L) 98 - 107 POWERCHART MMOLL CO2 Total 25.5 23.0 - POWERCHART 29.0 MMOLL Creatinine 0.91 0.60 - POWERCHART 1.30 MGDL Glucose 106 70 - 139 POWERCHART MGDL Calcium, Total, 9.9 8.8 - 10.2 POWERCHART S MGDL Sodium, S 134.3 (L) 135.0 - POWERCHART 145.0 MML Potassium, S 3.8 3.6 - 4.8 POWERCHART MMOLL HXeGFR (MDRD) 59 (L) >=60 POWERCHART [id number] eGFR >60 >=60 POWERCHART Black/ [id number] [place] Specimen (Source) Anatomical Collection Method Collection Time Re ceived Time Location / / Volume Laterality Blood 12/30/2014 7:01 PM CDT Alex Gardner P.A.-C. LAB BLOOD ADD-ON Performing Organization Address City/State/ZIP Code Phon e Number POWERCHART documented in this encounter Visit Diagnoses Not on filedocumented in this encounter
--- OUTSIDE RECORDS SUMMARY | 2022-01-04 09:40 | XMS_ITS | Encounter Summary ---
:1935 Author Organization [facility] Address [address] [place] [address] Care Team Providers Name Role Phone Unavailable Primary Care Provider Unavailable Encounter Details Date Type Department Care Team Description 02/21/2012 Hospital Encounter HX [facility] Oliveira D.O[facility] [address] [place], [place] [phone] (Wo rk) Social History Tobacco Use Types Packs/Day Years Used Date Smoking Tobacco: Never Assessed Sex Assigned at Date Recorded Not on file documented as of this encounter Medications at Time of Discharge Medication Sig Dispensed Refills Start Date End Date CALCIUM CARB/VIT Take by mouth daily. 0 1 01/21/2019 D3/MINERALS (CALCIUM-VITAMIN D ORAL) [id number] Take 1 capsule by 0 011 05/30/2018 oil 1,400 mg/5 mL liquid mouth daily. documented as of this encounter Miscellaneous Notes Miscellaneous - Elena Oliveira DKaiO. - 02/21/2012 12:00 AM CST [id number] Janeth Duenas [address] [facility] [id number] February 21, 2012 Dear Janeth Duenas: Our records indicate that you are due for a Colonoscopy. This is the best test available to detect colon cancer. Please call us to make an appointment at your convenience. Our telephone number for scheduling an appointment is [phone]. If you have already made an appointment for this or have had the proceduredone, please disregard this notice. We look forward to seeing you soon. Sincerely, Elena Oliveira D.O. Family Practice Department [facility] [place] Source: [facility] [email or web address] Document Id: [id number] Electronically signed by Conversion, [facility] Mill Stenciler [id number] at 08/06/2016 11:48 AM CDT documented in this encounter Plan of Treatment Not on filedocumented as of this encounter Visit Diagnoses Not on filedocumented in this encounter
--- OUTSIDE RECORDS SUMMARY | 2022-01-04 09:40 | XMS_ITS | Encounter Summary ---
:1935 Author Organization [facility] Address [address] [place] [address] Care Team Providers Name Role Phone Unavailable Primary Care Provider Unavailable Encounter Details Date Type Department Care Team Description 01/02/2012 Hospital Encounter HX [facility] May Mcfadden M.D. [address] [place] [phone] (Wo rk) Social History Tobacco Use Types Packs/Day Years Used Date Smoking Tobacco: Never Assessed Sex Assigned at Date Recorded Not on file documented as of this encounter Last Filed Vital Signs Vital Sign Reading Time Taken Comments Blood Pressure 148/78 01/02/2012 7:53 AM CDT Pulse 64 01/02/2012 7:53 AM CDT Temperature - - Respiratory Rate 16 01/02/2012 7:53 AM CDT Oxygen Saturation - - Inhaled Oxygen Concentration - - Weight 60.8 kg (134 lb 0.6 oz) 01/02/2012 7:53 AM CDT Height - - Body Mass Index 23.03 12/06/2011 10:03 AM CDT documented in this encounter Medications at Time of Discharge Medication Sig Dispensed Refills Start Date End Date CALCIUM CARB/VIT Take by mouth daily. 0 1 01/21/2019 D3/MINERALS (CALCIUM-VITAMIN D ORAL) [id number] Take 1 capsule by 0 011 05/30/2018 oil 1,400 mg/5 mL liquid mouth daily. documented as of this encounter Progress Notes Marisol Mcfadden M.D. - 01/02/2012 7:47 AM CDT [id number] IMPRESSION/REPORT/PLAN Scalp eczema with xerosis. PLAN The patient is advised to take prednisone 10 mg twice a day for five days and then 10 mg once a day for a total of 10 days. Also advised to use [employer] Scalp Essential Shampoo three times a week. If not significantly improved in one month, she should follow-up in the clinic. CHIEF COMPLAINT/REASON FOR VISIT The patient is a 76-year-old complaining of a rash. She said that she started having the rash since the summer. She was out and about on the boat quite a bit. She is having a significant amount of scaly rash and itching. That has continued for the last few months. The patient is here for consultation.Most of the itching and scales are in the scalp and occipital area. She does not have any redness, drainage, or pain at the site of the rash. It is more itching and irritation. PHYSICAL EXAMINATION Multiple areas of scaly rash are noted on the parietal and occipital scalp area consistent with xerosis, dry scalp, and to the point of extreme eczematous rash. Marisol Mcfadden M.D./[facility] Electronically Signed By: MARISOL MCFADDEN MD On: 01/02/2012 01:38 PM Source: [facility] [id number] Document Id: [id number] documented in this encounter Nursing Notes Conversion, Historical Provider Ser - 04/09/2012 2:54 PM CST Referral Referral to Dermatology @ [facility]. Appt scheduled for 04-10-12 @ 3:25 pm; [facility] [address] [facility] [place] desk, with Dr. Mcclain. Pt informed of date, time & place. All questions answered. Electronically Signed By: BREANN COPE LPN On: 04/09/2012 02:56 PM Source: [facility] POWERCHART Document Id: [id number] documented in this encounter Miscellaneous Notes Miscellaneous - Conversion, Historical Provider Ser - 04/09/2012 2:57 PM ROOF SERVICE TECHNICIAN General Message Document Contains Addenda Addendum by MARISOL MCFADDEN MD on 16 April 2012 11:55:10 ROOF SERVICE TECHNICIAN From: MARISOL MCFADDEN MD To: BREANN COPE LPN; Sent: 04/16/2012 11:55:10 ROOF SERVICE TECHNICIAN Subject: RE: General Message ok From: BREANN COPE LPN To: MARISOL MCFADDEN MD; Sent: 04/09/2012 14:57:50 ROOF SERVICE TECHNICIAN Subject: General Message FYI - Pt scheduled for derm appt for her scalp eczema & xerosis on 04-10-12. Pt aware. Source: [facility] ComplyMDCHART Document Id: [id number] Miscellaneous - Marisol Mcfadden M.D. - 01/02/2012 8:11 AM CDT Ambulatory Patient Summary [address] [address] Visit Information Name: JANETH RANGEL Current Date: 01/02/2012 08:11:31 Physicians Attending Provider: MARISOL MCFADDEN MD Primary Care Provider: MARISOL MCFADDEN MD Your Medications Here is a list of your medications. It is important to take your medications as directed. Use a pillbox or chart to help remind you to take your medications. Please let your doctor or nurse know if you have problems taking your medications. Medication/Strength Dose Route Frequency Indications/Special Instructions/Comments predniSONE (predniSONE 10 mg oral tablet) 10 mg Oral once a day twice a day for 5 days then once a day for 5 days atenolol (atenolol 50 mg oral tablet) 50 mg Oral once a day lisinopril-hydrochlorothiazide (lisinopril-hydrochlorothiazide 20 mg-25 mg oral tablet) 1 tab(s) Oral once a day (Zestoretic) calcium-vitamin D (Calcium 600+D) 1 tab Oral once a day aspirin (aspirin) 81 mg Oral once a day omega-3 polyunsaturated fatty acids (Fish Oil oral capsule) 1 cap(s) Oral once a day Attention: If you have any medications at home that are not on this list, DO NOT take them until youcontact your provider for clarification. Your Allergies & Intolerances Substance Reaction Symptoms Category Comments No Known Allergies Drug Your Problem List Problem Status Onset Comments Hypertension Active 03/06/1990 Tick Bite Active 05/25/2011 Aortic insufficiency Active 10/20/2011 12/06/11 unknown date of dx; 12/06/11 stress test Your Upcoming Appointments Date Time Location Reason Provider No Appointments found Your Goals/Additional instructions: Source: [facility] POWERCHART Document Id: [id number] Miscellaneous - Marisol Mcfadden M.D. - 01/02/2012 8:11 AM CDT Ambulatory Depart Summary [address] [address] Visit Information Name: JANETH RANGEL Visit Date: 01/02/2012 08:11:30 Attending Provider: MARISOL MCFADDEN MD Primary Care Provider: MARISOL MCFADDEN MD CLAIRE JANETH RHYS has been given the following list of medications: Your Medications It is important to take your medications as directed. Use a pill box or chart to help remind you to take your medications. Please let your doctor or nurse know if you have problems taking your medications. Medication/Strength Dose Route Frequency Indications/Special Instructions/Comments predniSONE (predniSONE 10 mg oral tablet) 10 mg Oral once a day twice a day for 5 days then once a day for 5 days atenolol (atenolol 50 mg oral tablet) 50 mg Oral once a day lisinopril-hydrochlorothiazide (lisinopril-hydrochlorothiazide 20 mg-25 mg oral tablet) 1 tab(s) Oral once a day (Zestoretic) calcium-vitamin D (Calcium 600+D) 1 tab Oral once a day aspirin (aspirin) 81 mg Oral once a day omega-3 polyunsaturated fatty acids (Fish Oil oral capsule) 1 cap(s) Oral once a day Attention: If you have any medications at home that are not on this list, DO NOT take them until youcontact your provider for clarification. Additional Information: Source: [facility] POWERCHART Document Id: [id number] Miscellaneous - Se Dalal L.P.N. - 01/02/2012 7:53 AM CDT Adult Stitch Bonding Machine Operator Intake/History Adult Stitch Bonding Machine Operator Intake/History Entered On: 01/02/2012 7:58 CDT Performed On: 01/02/2012 7:53 CDT by SE DALAL LPN Intake Chief Complaint : Rash on head- burning feeling. Temperature Core : 36C(Converted to: 96.8DegF) (LOW) Peripheral Pulse Rate : 64/min Respiratory Rate : 16/min Systolic Blood Pressure : 148mmHg (HI) Diastolic Blood Pressure : 78mmHg NIBP Mean : 101mmHg BP Location : Right upper extremity Blood Pressure Cuff Size : Regular SpO2 : 98% Oxygen Therapy : Room air Actual Weight : 60.8kg(Converted to: 134lb 1oz) Weight Source : Standing scale Dosing Weight Clinic : 60.80kg SE DALAL LPN - 01/02/2012 7:53 CDT Subjective Pain Symptoms : No SE DALAL LPN - 01/02/2012 7:53 CDT Dependent Habits Tobacco Use/Currently Using : No Exposure to Tobacco Smoke : Care provider denies smoking in home Smoking Status : Never smoker SE DALAL LPN - 01/02/2012 7:53 CDT Tobacco Use Grid Last Use : never SE DALAL LPN - 01/02/2012 7:53 CDT Alcohol Use : Yes SE DALAL LPN - 01/02/2012 7:53 CDT Caffeine Use Grid Caffeine Use : Current Type : Coffee Frequency : Daily Amount : 2 SE DALAL LPN - 01/02/2012 7:53 CDT Recreational Drug Use Grid Drug Use : None SE DALAL LPN - 01/02/2012 7:53 CDT Allergy Allergies (Active) NKA Estimated Onset Date: Unspecified ; Created By: MAY DAVIDSON LPN; Reaction Status: Active ;Category: Drug ; Substance: NKA ; Type: Allergy ; Updated By: MAY DAVIDSON LPN; Reviewed Date: 12/07/2011 8:57 CDT Source: [employer] Document Id: [id number] documented in this encounter Plan of Treatment Not on filedocumented as of this encounter Visit Diagnoses Not on filedocumented in this encounter
--- OUTSIDE RECORDS SUMMARY | 2022-01-04 09:40 | XMS_ITS | Encounter Summary ---
:1935 Author Organization [facility] Address [address] [place] [address] Care Team Providers Name Role Phone Unavailable Primary Care Provider Unavailable Encounter Details Date Type Department Care Team Description 11/26/2012 Hospital Encounter HX [facility] Ginna Tejada M.D. Social History Tobacco Use Types Packs/Day Years Used Date Smoking Tobacco: Never Assessed Sex Assigned at Date Recorded Not on file documented as of this encounter Last Filed Vital Signs Vital Sign Reading Time Taken Comments Blood Pressure 130/50 11/26/2012 3:39 PM CDT Pulse 67 11/26/2012 3:39 PM CDT Temperature - - Respiratory Rate 16 11/26/2012 3:39 PM CDT Oxygen Saturation - - Inhaled Oxygen Concentration - - Weight 60.2 kg (132 lb 11.5 oz) 11/26/2012 3:39 PM CDT Height - - Body Mass Index 22.94 10/01/2012 7:49 AM CDT documented in this encounter Medications at Time of Discharge Medication Sig Dispensed Refills Start Date End Date CALCIUM CARB/VIT Take by mouth daily. 0 1 01/21/2019 D3/MINERALS (CALCIUM-VITAMIN D ORAL) [id number] Take 1 capsule by 0 011 05/30/2018 oil 1,400 mg/5 mL liquid mouth daily. documented as of this encounter Progress Notes Ginna Tejada M.D. - 11/26/2012 3:30 PM CDT [id number] CHIEF COMPLAINT/REASON FOR VISIT Flare of gout. HISTORY OF PRESENT ILLNESS Janeth is here with a flare-up of gout in her right foot. She has had it there in the past and usually is located in the same area. She says her father had gout. She had last December and then again in April. She was treated in December with a steroid which sounds like it worked well for her. In April, she was put on indomethacin but she got sick to her stomach with that. She also needs her blood pressure pills refilled today. PHYSICAL EXAMINATION EXTREMITIES/JOINTS: On exam, the right forefoot is swollen and just mildly erythematous. It is tender to touch. IMPRESSION/REPORT/PLAN Gout flare-up. PLAN: We will do a Medrol Dosepak this time. If she has frequent recurrences, we could consider putting her on daily allopurinol and I did talk to her about this a little bit but will hold off for now.I also refilled her lisinopril/hydrochlorothiazide and her atenolol today. Her blood pressure is 130/50. We will check a BMP as it has been almost a year since that has been done. Ginna Tejada M.D./ Electronically Signed By: GINNA TEJADA MD On: 11/30/2012 07:44 AM Source: [facility] MHSDOLBEYNONRADSYS Document Id: [id number] documented in this encounter Miscellaneous Notes Miscellaneous - Ginna Tejada M.D. - 11/26/2012 6:20 PM CDT Normal Results Letter 26 November 2012 JANETH RANGEL [address] [facility] [id number] Dear JANETH RANGEL, I am pleased to report that your results from the following diagnostic test(s) are normal. Please follow up with us as we discussed during your visit or sooner if you have any concerns. If you have questions or concerns, please do not hesitate to call our office. Result Name Current Result Previous Result Normal Range Sodium Lvl (mM/L) (L) 134.9 11/26/2012 137.3 12/07/2011 135.0 - 145.0 Potassium Lvl (mmol/L) 3.9 11/26/2012 3.7 12/07/2011 3.6 - 4.8 Chloride (mmol/L) 100 11/26/2012 (L) 99 12/07/2011 100 - 108 CO2 (mmol/L) 27.7 11/26/2012 (H) 31.8 12/07/2011 23.0 - 29.0 AGAP (mmol/L) (L) 7 11/26/2012 (L) 6 12/07/2011 10 - 20 Glucose Lvl (mg/dL) 96 11/26/2012 104 12/07/2011 70 - 139 Creatinine (mg/dL) 0.93 11/26/2012 0.81 12/07/2011 0.60 - 1.30 EGFR (MDRD) (mL/min/1.73m2) (L) 59 11/26/2012 >60 12/07/2011 >=60 - EGFR (MDRD) (mL/min/1.73m2) >60 11/26/2012 >60 12/07/2011 >=60 - BUN (mg/dL) 18 11/26/2012 15 12/07/2011 7 - 18 Calcium Lvl (mg/dL) 9.8 11/26/2012 9.1 12/07/2011 8.8 - 10.2 Sincerely, GINNA TEJADA [address] [place] [id number] Electronic Signature Electronically Signed By: GINNA TEJADA MD On: 26 November 2012 This document has images extracted. Source: [facility] POWERCHART Document Id: [id number] Electronically signed by Conversion, [facility] Fitting Room Associate [id number] at 08/03/2016 8:22 PM CDT Miscellaneous - Ginna Tejada M.D. - 11/26/2012 4:05 PM CDT Ambulatory Patient Summary [address] [address] Visit Information Name: JNAETH RANGEL [facility] Number: [id number] Current Date: 11/26/2012 16:05:00 Physicians Attending Provider: GINNA TEJADA MD Primary Care Provider: MAGO GOLDEN MD Your Medications Here is a list of your medications. It is important to take your medications as directed. Use a pillbox or chart to help remind you to take your medications. Please let your doctor or nurse know if you have problems taking your medications. Medication/Strength Dose Route Frequency Indications/Special Instructions/Comments/Notes lisinopril-hydrochlorothiazide (lisinopril-hydrochlorothiazide 20 mg-25 mg oral tablet) 1 tab(s) Oral once a day (Zestoretic) atenolol (atenolol 50 mg oral tablet) 50 mg Oral once a day methylPREDNISolone (Medrol Dosepak 4 mg oral tablet) See special instructions Oral as directed for 6Days calcium-vitamin D (Calcium 600+D) 1 tab Oral [...] & Intolerances Substance Reaction Symptoms Category Comments indomethacin vomit Drug Your Problem List Problem Status Onset Comments Hypertension Active 03/06/1990 Aortic insufficiency Active 10/20/2011 12/06/11 unknown date of dx; 12/06/11 stress test Gout NOS Active 11/26/2012 Your Upcoming Appointments Date Time Location Reason Provider No Appointments found Your Goals/Additional instructions: Source: [facility] POWERCHART Document Id: [id number] Miscellaneous - Ginna Tejada M.D. - 11/26/2012 4:05 PM CDT Ambulatory Depart Summary [address] [place] [address] Visit Information Name: JANETH RANGEL [facility] Number: [id number] Visit Date: 11/26/2012 16:05:00 Attending Provider: GINNA TEJADA MD Primary Care Provider: MAGO GOLDEN MD JANETH RANGEL has been given the following list of medications: Your Medications It is important to take your medications as directed. Use a pill box or chart to help remind you to take your medications. Please let your doctor or nurse know if you have problems taking your medications. Medication/Strength Dose Route Frequency Indications/Special Instructions/Comments/Notes lisinopril-hydrochlorothiazide (lisinopril-hydrochlorothiazide 20 mg-25 mg oral tablet) 1 tab(s) Oral once a day (Zestoretic) atenolol (atenolol 50 mg oral tablet) 50 mg Oral once a day methylPREDNISolone (Medrol Dosepak 4 mg oral tablet) See special instructions Oral as directed for 6Days calcium-vitamin D (Calcium 600+D) 1 tab Oral once a day aspirin (aspirin) 81 mg Oral once a day omega-3 polyunsaturated fatty acids (Fish Oil oral capsule) 1 cap(s) Oral once a day Attention: If you have any medications at home that are not on this list, DO NOT take them until youcontact your provider for clarification. Additional Information: Source: [facility] POWERCHART Document Id: [id number] Miscellaneous - Janeth Og, L.P.N. - 11/26/2012 3:39 PM CDT Adult Watershed Engineer Intake/History Adult Watershed Engineer Intake/History Entered On: 11/26/2012 15:41 CDT Performed On: 11/26/2012 15:39 CDT by JANETH OG FLUID PUMP OPERATOR Intake Chief Complaint : here with sx of gout in right foot. Started on Sat. Can not take Indomethicin-makes her vomit. Temperature Core : 36.7 DegC(Converted to: 98.1 DegF) Peripheral Pulse Rate : 67 /min Respiratory Rate : 16 /min Heart Rhythm : Regular Systolic Blood Pressure : 130 mmHg Diastolic Blood Pressure : 50 mmHg (LOW) NIBP Mean : 77 mmHg BP Location : Left upper extremity Blood Pressure Cuff Size : Regular Actual Weight : 60.2 kg(Converted to: 132 lb 11 oz) Weight Source : Standing scale Dosing Weight Clinic : 60.2 kg JANETH OG LPN - 11/26/2012 15:39 CDT General Info Information Given By : Patient Languages : German JANETH OG LPN - 11/26/2012 15:39 CDT Subjective Pain Symptoms : Yes JANETH OG LPN - 11/26/2012 15:39 CDT Pain Pain Assessment Grid Pain 1 Location : Foot Laterality : Right Intensity : 9 JANTEH OG LPN - 11/26/2012 15:39 CDT Dependent Habits Tobacco Use/Currently Using : No Exposure to Tobacco Smoke : Care provider denies smoking in home Smoking Status : Never smoker JANETH OG LPN - 11/26/2012 15:39 CDT Tobacco Use Grid Last Use : never JANETH OG LPN - 11/26/2012 15:39 CDT Caffeine Use Grid Caffeine Use : Current Type : Coffee Frequency : Daily Amount : 2 JANETH OG LPN - 11/26/2012 15:39 CDT Recreational Drug Use Grid Drug Use : None JANETH OG LPN - 11/26/2012 15:39 CDT Source: [employer] Document Id: [id number] CDT!42 Miscellaneous - Janeth Og L.P.NKai - 11/26/2012 3:34 PM CDT Health Assessment Health Assessment Entered On: 11/26/2012 15:34 CDT Performed On: 11/26/2012 15:34 CDT by JANETH OG LPN Health Assessment Complete Health Assessment Complete or Modified : Annual Health Assessment Annual Health Assessment Completed : Yes JANETH OG LPN - 11/26/2012 15:34 CDT Nutrition Nutrition Risk Factors by History Adult : None JANETH OG LPN - 11/26/2012 15:34 CDT Functional Current Daily Living Assistance : None JANETH OG LPN - 11/26/2012 15:34 CDT Dependent Habits Tobacco Use/Currently Using : No Exposure to Tobacco Smoke : Care provider denies smoking in home Smoking Status : Never smoker JANETH OG LPN - 11/26/2012 15:34 CDT Tobacco Use Grid Last Use : never JANETH OG [facility] - 11/26/2012 15:34 CDT Caffeine Use Grid Caffeine Use : Current Type : Coffee Frequency : Daily Amount : 2 JANETH OG [facility] - 11/26/2012 15:34 CDT Recreational Drug Use Grid Drug Use : None JANETH OG [facility] - 11/26/2012 15:34 CDT Psychosocial Domestic Abuse Concerns : None JANETH OG [facility] - 11/26/2012 15:34 CDT Advance Directive Advanced Directives : No Advance Directive Additional Information : No JANETH OG [facility] - 11/26/2012 15:34 CDT Educ Needs Learning Style Preference Adult Grid Patient : Demonstration, Printed materials Family : JANETH Augustine [facility] - 11/26/2012 15:34 CDT Source: [facility] POWERCHART Document Id: [id number] CDT!33 documented in this encounter Plan of Treatment Not on filedocumented as of this encounter Procedures Procedure Name Priority Date/Time Associated Diagnosis Comme nts BASIC METABOLIC Routine 11/26/2012 4:13 PM Result s for this PANEL, S/P CDT procedure are i n the results section. documented in this encounter Results (ABNORMAL) BMP (Basic Metabolic Panel) (11/26/2012 4:13 PM CDT) [facility] Method Time Signature Sodium, S 134.9 (L) 135.0 - POWERCHART 145.0 MML Potassium, S 3.9 3.6 - 4.8 POWERCHART MMOLL Chloride, S 100 100 - 108 POWERCHART MMOLL CO2 Total 27.7 23.0 - POWERCHART 29.0 MMOLL BUN (Blood Urea 18 7 - 18 POWERCHART Nitrogen), S MGDL Creatinine 0.93 0.60 - POWERCHART 1.30 MGDL Calcium, Total, 9.8 8.8 - 10.2 POWERCHART S MGDL Anion Gap 7 (L) 10 - 20 POWERCHART MMOLL HXeGFR (MDRD) 59 (L) >=60 POWERCHART [id number] Comment: A GFR of <60 mL/min is indicative of chr onic kidney disease. (MDRD calculation valid on patients 18-7 0 years.) eGFR Black/ >60 >=60 [id number] POWERCHART Glucose 96 70 - 139 MGDL POWERCHART Specimen (Source) Anatomical Collection Method Collection Time Re ceived Time Location / / Volume Laterality Blood 11/26/2012 4:13 PM CDT Ginna Tejada M.D. LAB BLOOD ADD-ON Performing Organization Address City/State/ZIP Code Phon e Number POWERCHART documented in this encounter Visit Diagnoses Not on filedocumented in this encounter
--- OUTSIDE RECORDS SUMMARY | 2022-01-04 09:40 | XMS_ITS | Encounter Summary ---
:1935 Author Organization [facility] Address [address] [place] [address] Care Team Providers Name Role Phone Unavailable Primary Care Provider Unavailable Encounter Details Date Type Department Care Team Description 10/20/2011 Hospital Encounter HX [facility] ECHO Caleb Skelton II, M.D. [address] [place], [place] [phone] (Wo rk) Social History Tobacco Use Types Packs/Day Years Used Date Smoking Tobacco: Never Assessed Sex Assigned at Date Recorded Not on file documented as of this encounter Medications at Time of Discharge Medication Sig Dispensed Refills Start Date End Date CALCIUM CARB/VIT Take by mouth daily. 0 1 01/21/2019 D3/MINERALS (CALCIUM-VITAMIN D ORAL) [id number]-epa-fish Take 1 capsule by 0 011 05/30/2018 oil 1,400 mg/5 mL liquid mouth daily. documented as of this encounter Procedure Notes Benjamin Winters M.D. - 10/20/2011 12:00 AM CDT 1ECG STRESS ECHOCARDIOGRAM Ms. Duenas exercised for 7 minutes 38 seconds of the Demian protocol. She stopped because of fatigue. There was no associated chest pain and minimal dyspnea. The rate pressure product was 26,040. In the first minute of recovery there was 2.[address] depression in leads V5 and V6 consistentwith a positive stress electrocardiogram. Of note, the sensitivity and specificity of this finding is reduced due to baseline left ventricular hypertrophy by voltage criteria. There was no associated ventricular dysrhythmia during stress or during her recovery. The patient tolerated the activity well. IMPRESSION/REPORT/PLAN 1. Stress electrocardiogram positive for ischemia. 2. Left ventricular hypertrophy which reduces the sensitivity and specificity of EKG stress testing. 3. Echo imaging to follow. Benjamin Skelton M.D./chika Electronically Signed By: BENJAMIN SKELTON MD On: 03/08/2012 03:49 PM Source: [facility] MHSDOLBEYNONRADSYS Document Id: [id number] ORY INSTRUCTOR documented in this encounter Plan of Treatment Not on filedocumented as of this encounter Visit Diagnoses Not on filedocumented in this encounter
--- OUTSIDE RECORDS SUMMARY | 2022-01-04 09:40 | XMS_ITS | Encounter Summary ---
:1935 Author Organization [facility] Address [address] [place] [address] Care Team Providers Name Role Phone Unavailable Primary Care Provider Unavailable Encounter Details Date Type Department Care Team Description 08/13/2013 Hospital Encounter HX [facility] Mary Rangel, PKaiAKai-Collin [address] [place] [address] (Wo rk) Social History Tobacco Use Types Packs/Day Years Used Date Smoking Tobacco: Never Assessed Sex Assigned at Date Recorded Not on file documented as of this encounter Last Filed Vital Signs Vital Sign Reading Time Taken Comments Blood Pressure 145/63 08/13/2013 1:19 PM CDT Pulse 68 08/13/2013 1:19 PM CDT Temperature - - Respiratory Rate 16 08/13/2013 1:19 PM CDT Oxygen Saturation - - Inhaled Oxygen Concentration - - Weight 59.5 kg (131 lb 2.8 oz) 08/13/2013 1:19 PM CDT Height - - Body Mass Index 22.39 04/29/2013 11:27 AM CITRUS PICKER documented in this encounter Medications at Time of Discharge Medication Sig Dispensed Refills Start Date End Date CALCIUM CARB/VIT Take by mouth daily. 0 1 01/21/2019 D3/MINERALS (CALCIUM-VITAMIN D ORAL) [id number]-epa-fish Take 1 capsule by 0 011 05/30/2018 oil 1,400 mg/5 mL liquid mouth daily. documented as of this encounter Progress Notes Amy Rangel - 08/13/2013 1:13 PM CDT [id number] CHIEF COMPLAINT/REASON FOR VISIT This is a 78-year-old female who states that she has noticed some blood in her stool both last nightand this morning. She states that she has had normal regular bowel movements. She has not been straining. She has not been constipated. She has not had any diarrhea. She just noticed a small amount of b lood on the toilet paper. She does not think there was any blood in the water. She is not sure if itwas on the stool or not. She has no history of hemorrhoids as far as she knows. She has not noticed any itching or irritation. She has had a colonoscopy in 2006 for some removal of polyps. MEDICATIONS Reviewed in the EMR. PAST MEDICAL/SURGICAL HISTORY Reviewed in the EMR. VITAL SIGNS Temperature 36.7, heart rate 68, respirations 16, blood pressure is 145/63, O2 sats 98% on room air.Height 163 cm, weight 59.5 kilos. PHYSICAL EXAMINATION GENERAL: She is alert, interactive, and cooperative. Appears to be well- nourished, well-hydrated, inno acute distress. HEART: Regular rate and rhythm. LUNGS: Clear to auscultation bilaterally. No wheezes. IMPRESSION/REPORT/PLAN Hematochezia. PLAN: I will get her set up for a colonoscopy. It does not sound like there is a large amount of blood at this time that requires any lab work. If it should increase or worsen, she needs to notify us right away. Amy Rangel P.A.-C./dayanna Electronically Signed By: AMY RANGEL On: 08/20/2013 01:34 PM Source: [facility] MHSDOLBEYNJERRY Document Id: [id number] documented in this encounter Miscellaneous Notes Miscellaneous - Amy Rangel - 08/13/2013 4:39 PM CDT Ambulatory Patient Summary [id number] [place], [place] [phone] Visit Information Name: JANETH RANGEL [facility] Number: [id number] Current Date: 08/13/2013 16:39:12 Physicians Attending Provider: AMY RANGEL Primary Care Provider: ALEISHA GOLDEN MD JANETH [...] two time per day for one week atenolol (atenolol 50 mg oral tablet) 1 Tablet(s), Oral, once a day betamethasone topical (betamethasone valerate 0.1% topical lotion) 1 js, Topical, two times a day as needed for rash to scalp calcium-vitamin D (Calcium 600+D) 1 tab, Oral, once a day indomethacin (Indocin 50 mg oral capsule) 1 cap, Oral, three times a day as needed for Gout pain Take with food lisinopril-hydrochlorothiazide (lisinopril-hydrochlorothiazide 20 mg-25 mg oral tablet) 1 Tablet(s),Oral, once a day (Zestoretic) omega-3 polyunsaturated fatty acids (Fish Oil oral capsule) 1 cap, Oral, once a day omeprazole (omeprazole 20 mg oral delayed release tablet) 1 Tablet(s), Oral, once a day Stop Taking the Following Medications: Medication list as of 08-13-13 16:39 Attention: If you have any medications at home that are not on this list, DO NOT take them until youcontact your provider for clarification. Give a copy of your medication list to your primary care provider. Update your medication list any time medications or doses are changed and carry your medication list at all times in case of emergency. Electronically Signed By: AMY RANGEL Signed On:13-AUG-2013 16:39:06 Your Allergies & Intolerances Substance Reaction Symptoms Category Comments No Known Medication Allergies Drug NO KNOWN DRUG ALLERGIES Your Problem List Problem Status Onset Comments Hypertension Active 03/06/1990 Aortic insufficiency Active 10/20/2011 12/06/11 unknown date of dx; 12/06/11 stress test Gout NOS Active 11/26/2012 Benign Essential Hypertension Active 11/13/2001 06/01/13 Essential hypertension, benign Pure Hypercholesterolemia Active 11/13/2001 06/01/13 Pure hypercholesterolemia Your Upcoming Appointments Date Time Location Reason Provider 08/21/2013 14:00 [facility] Family Med pre op for colonoscopy Aleisha Carroll MD 08/28/2013 09:[address] [facility] Scope Room blood in stool [facility] Scope Rm Attention: Contact your local Clinic if further appointment detail needed. Your Goals/Additional instructions: Source: [facility] POWERCHART Document Id: [id number] Miscellaneous - Amy Rangel - 08/13/2013 4:39 PM CDT Ambulatory Discharge Medication List [address] [phone] Visit Information Name: JANETH RANGEL RHYS [facility] Number: [id number] Visit Date: 08/13/2013 16:39:11 Attending Provider: AMY RANGEL Primary Care Provider: ALEISHA GOLDEN MD CLAIRE JANETH JOINER has been given the following list of [...] two time per day for one week atenolol (atenolol 50 mg oral tablet) 1 Tablet(s), Oral, once a day betamethasone topical (betamethasone valerate 0.1% topical lotion) 1 js, Topical, two times a day as needed for rash to scalp calcium-vitamin D (Calcium 600+D) 1 tab, Oral, once a day indomethacin (Indocin 50 mg oral capsule) 1 cap, Oral, three times a day as needed for Gout pain Take with food lisinopril-hydrochlorothiazide (lisinopril-hydrochlorothiazide 20 mg-25 mg oral tablet) 1 Tablet(s),Oral, once a day (Zestoretic) omega-3 polyunsaturated fatty acids (Fish Oil oral capsule) 1 cap, Oral, once a day omeprazole (omeprazole 20 mg oral delayed release tablet) 1 Tablet(s), Oral, once a day Stop Taking the Following Medications: Medication list as of 08-13-13 16:39 Attention: If you have any medications at home that are not on this list, DO NOT take them until youcontact your provider for clarification. Give a copy of your medication list to your primary care provider. Update your medication list any time medications or doses are changed and carry your medication list at all times in case of emergency. Electronically Signed By: AMY RANGEL Signed On:13-AUG-2013 16:39:06 Additional Information: Source: [facility] POWERCHART Document Id: [id number] Miscellaneous - Se Dalal, L.P.N. - 08/13/2013 1:19 PM CDT Adult Senior Air Director Intake/History Adult Senior Air Director Intake/History Entered On: 08/13/2013 13:23 CDT Performed On: 08/13/2013 13:19 CDT by SE DALAL MEDICAL FRONT DESK SPECIALIST Intake Chief Complaint : Blood in stool notice last night. Temperature Core : 36.7 DegC(Converted to: 98.1 DegF) Peripheral Pulse Rate : 68 /min Respiratory Rate : 16 /min Systolic Blood Pressure : 145 mmHg (HI) Diastolic Blood Pressure : 63 mmHg NIBP Mean : 90 mmHg BP Location : Left upper extremity Blood Pressure Cuff Size : Regular SpO2 : 98 % Oxygen Therapy : Room air Actual Weight : 59.5 kg(Converted to: 131 lb 3 oz) Weight Source : Standing scale Dosing Weight Clinic : 59.5 kg [facility] - 08/13/2013 13:19 CDT General Info Information Given By : Patient Preferred Communication Mode : Verbal Languages : Setswana [facility] - 08/13/2013 13:19 CDT Subjective Pain Symptoms : No [facility] - 08/13/2013 13:19 CDT Dependent Habits Tobacco Use/Currently Using : No Exposure to Tobacco Smoke : Care provider denies smoking in home Smoking Status : Never smoker [facility] - 08/13/2013 13:19 CDT Tobacco Use Grid Last Use : never [facility] - 08/13/2013 13:19 CDT Alcohol Use : No [facility] - 08/13/2013 13:19 CDT Caffeine Use Grid Caffeine Use : Current Type : Coffee Frequency : Daily Amount : 2 [facility] - 08/13/2013 13:19 CDT Recreational Drug Use Grid Drug Use : None [facility] - 08/13/2013 13:19 CDT Source: [employer] Document Id: [id number] CDT!39 documented in this encounter Plan of Treatment Not on filedocumented as of this encounter Visit Diagnoses Not on filedocumented in this encounter
--- OUTSIDE RECORDS SUMMARY | 2022-01-04 09:40 | XMS_ITS | Encounter Summary ---
:1935 Author Organization [facility] Address [address] [place] [address] Care Team Providers Name Role Phone Unavailable Primary Care Provider Unavailable Encounter Details Date Type Department Care Team Description 08/04/2014 Hospital Encounter HX [facility] Karen Meraz M.D. [address] [place], [place] [address] (Wo rk) Social History Tobacco Use Types Packs/Day Years Used Date Smoking Tobacco: Never Assessed Sex Assigned at Date Recorded Not on file documented as of this encounter Last Filed Vital Signs Vital Sign Reading Time Taken Comments Blood Pressure 147/57 08/04/2014 11:57 AM CDT Pulse 66 08/04/2014 11:51 AM CDT Temperature - - Respiratory Rate 18 08/04/2014 11:51 AM CDT Oxygen Saturation - - Inhaled Oxygen Concentration - - Weight 56.5 kg (124 lb 9 oz) 08/04/2014 11:51 AM CDT Height 157.5 cm (5' 2.01) 08/04/2014 11:57 AM CDT Body Mass Index 22.78 08/04/2014 11:51 AM CDT documented in this encounter Medications at Time of Discharge Medication Sig Dispensed Refills Start Date End Date aspirin [address] tablet Take 1 tablet by 0 201401/21/2019 mouth daily. CALCIUM CARB/VIT Take by mouth daily. 0 1 01/21/2019 D3/MINERALS (CALCIUM-VITAMIN D ORAL) [id number] Take 1 capsule by 0 011 05/30/2018 oil 1,400 mg/5 mL liquid mouth daily. documented as of this encounter Progress Notes Sukhjinder Daniel M.D. - 08/04/2014 11:44 AM CDT [id number] Patient is a 79-year-old lady who had pain in the chest last Monday. She came with her son for followup. On that night, on August 01, 2014, patient did go to the emergency room. They recorded that she hadpain in the chest that was on the left side and would increase with movements and palpation. The diagnosis was costochondritis of the chest wall, so she was reassured as to take aspirin 325 mg daily. They prescribed 30 tablets. Also prescribed Indocin 50 mg as needed for gout pain. She takes lisinopril/hydrochlorothiazide 20/25 mg and omeprazole. Today I am getting a little different history. She stated that Monday night she was in bed and developed a dull pain which was 6 out of 10 and located on the left side. The pain continued. She fell asleep. When she woke up, she still had the pain so went to the emergency room. By that time the pain had decreased some. She did not require any nitroglycerin. She does state that she gets bloating, belching in the stomach. Dr. Aleisha Carroll had prescribed omeprazole March 2014. She is not taking that at this time. The belching problem is recent. Seems to increase after meals. She agrees that lately she has been eating more fatty meals. She totally denies any acid regurgitation. PAST MEDICAL/SURGICAL HISTORY 1. Patient had aortic regurgitation in the past. 2. Hypertension. 3. Hyperlipidemia. 4. Gout. 5. Gastroesophageal reflux disease. 6. Patient has had colonoscopy in 2006 and again in August of 2013. 7. She had abdominal hysterectomy 1975. 8. Last echocardiogram was June 06, 2013. MEDICATIONS As mentioned above. ALLERGIES No known allergies. PHYSICAL EXAMINATION GENERAL: Patient is very comfortable. Looks normal now. VITAL SIGNS: Temperature 36.5 degrees centigrade, pulse rate 66, respirations 18, blood pressure 151/52. Oxygen saturation on room air 97%. Her height is 157 cm her actual weight is 56.5 kg. Stated that she is not losing weight. Her body mass index is 22.78 with clothes. HEENT: Normocephalic. Scalp, ears are normal. Eyes appear normal. Nose clear. Tongue moist. Throat clear. NECK: Supple. Neck veins are not engorged. Thyroid is not enlarged. No lymphadenopathy. There is no bruit over the carotid arteries. CHEST: Bilaterally symmetrical. Both heart sounds heard clearly. Does have a mild aortic regurgitation murmur. There is no aortic stenosis murmur. LUNGS: Clear to percussion and auscultation. There is no tenderness over the costochondral junctions. ABDOMEN: Soft. No tenderness anywhere in the abdomen. Liver, spleen, kidneys not palpable. Gallbladder area is also not tender. Rest of the abdominal examination is normal. SPINE: Negative. EXTREMITIES: Negative. NEUROLOGICAL: The patient is very alert and intelligent with good memory. IMPRESSION/REPORT/PLAN I advised the patient not to take any Indocin unless absolutely needed and even then she should takenot more than 25, and she says that is what she actually did. She will continue on aspirin 81 mg anddiscontinue the aspirin 325 mg. Continue atenolol 50 mg daily. Continue lisinopril/hydrochlorothiazide 20/25 mg daily. Continue omeprazole 20 mg daily. Continue calcium with vitamin D. Chart review. Patient had seen clamshell engineer Dr. Tod Singh. That was on April 29, 2013. She had some chest discomfort at the time that was noncardiac. She did have an echocardiogram done in October 2011 that showed no evidence of any ischemia and was able to exercise to a fair workload. Her eject ion fraction was very good at 65% to 70%. She was noted to have a tricuspid aortic valve with moderate aortic regurgitation. Then, in April of 2013 patient had some dull discomfort under her left breast. She had no other associated symptoms. Was evaluated in the emergency room and enzymes were all n egative. Electrocardiogram did not show any evidence of any ischemia. It did show evidence of left ventricular hypertrophy and some nonspecific ST-T changes. Her HDL cholesterol in 2011 was very good at 67 and LDL of 20, so clamshell engineer felt that this was atypical pain. Another echocardiogram was doneApr2013, and this showed mild to moderate left ventricular enlargement, mild left ventricular wall thickness, ejection fraction 60%. No wall motion abnormalities. Aortic regurgitation present. Mild thickening of the mitral valve. On this emergency room visit patient had a chest x-ray done which was normal and unchanged compared to April 26, 2013. EKG did not show any acute changes. The hemogram was normal with a hemoglobin of 12.9 g. Electrolytes were normal, potassium 3.6. Alkaline phosphatase slightly elevated 76. [id number]. The eGFR was reduced 46 mL/minute. BUN 27. Liver tests were not done . Troponin was 0.01. So because of the symptoms of belching, etc., suggesting gallbladder problem, obtained a liver profile and this also came back normal completely. Will still get an ultrasound of the upper abdomen. Patient will continue all her current medications but not take that much Indocin, which might cause more problems to her. She will see me as needed. I will follow with Dr. Aleisha Carroll. Sukhjinder Daniel M.D./dayanna Electronically Signed By: SUKHJINDER DANIEL MD On: 08/05/2014 12:49 PM Modified by and Electronically Signed by: SUKHJINDER DANIEL MD On: 08/05/2014 12:49 PM Source: [facility] MHSDOLBEYNONRADSYS Document Id: [id number] documented in this encounter Miscellaneous Notes Miscellaneous - Sukhjinder Daniel M.D. - 08/28/2014 8:18 PM CDT Normal Results Letter 28 August 2014 JANETH DUENAS [address] [facility] [id number] Dear JAENTH DUENAS, I am pleased to report that your results from the following diagnostic test(s) are normal. Please follow up with us as we discussed during your visit or sooner if you have any concerns. If you have questions or concerns, please do not hesitate to call our office. Janeht glad your liver tests are normal. Result Name Current Result Previous Result Normal Range Alkaline Phosphatase (U/L) 76 08/04/2014 70 04/26/2013 55 - 142 Protein Total (g/dL) 7.7 08/04/2014 7.6 04/26/2013 6.3 - 7.9 Albumin Lvl (g/dL) 4.3 08/04/2014 4.3 04/26/2013 3.5 - 5.0 Globulin (g/dL) 3.4 08/04/2014 2.0 - 4.5 AST (unit/L) 26 08/04/2014 24 04/26/2013 8 - 43 ALT (unit/L) 16 08/04/2014 21 04/26/2013 7 - 45 Bili Total (mg/dL) 0.6 08/04/2014 0.5 04/26/2013 0.1 - 1.0 Bili Direct (mg/dL) 0.1 08/04/2014 0.0 - 0.3 Sincerely, SUKHJINDER DANIEL [address] [address] Electronic Signature Electronically Signed By: SUKHJINDER DANIEL MD On: 28 August 2014 This document has images extracted. Source: [facility] Document Id: [id number] Miscellaneous - Jackeline Nava, L.P.N. - 08/04/2014 11:57 AM CDT Ambulatory Vitals Height Weight Ambulatory Vitals Height Weight Entered On: 08/04/2014 11:59 CDT Performed On: 08/04/2014 11:57 CDT by JACKELINE NAVA LPN Vitals/Ht/Wt Systolic Blood Pressure : 147 mmHg (HI) Diastolic Blood Pressure : 57 mmHg NIBP Mean : 87 mmHg BP Location : Left upper extremity Blood Pressure Cuff Size : Regular Height : 157.5 cm(Converted to: 5 ft 2 inch(es), 62 inch(es)) JACKELINE NAVA LPN - 08/04/2014 11:57 CDT Source: [facility] Document Id: [id number] CDT!8 Miscellaneous - Jackeline Nava L.P.N. - 08/04/2014 11:55 AM CDT Health Assessment Health Assessment Entered On: 08/04/2014 11:56 CDT Performed On: 08/04/2014 11:55 CDT by JACKELINE NAVA LPN Health Assessment Complete Health Assessment Complete or Modified : Annual Health Assessment Annual Health Assessment Completed : Yes JACKELINE NAVA LPN - 08/04/2014 11:55 CDT Nutrition Nutrition Risk Factors by History Adult : None JACKELINE NAVA LPN - 08/04/2014 11:55 CDT Functional Current Daily Living Assistance : None JACKELINE NAVA LPN - 08/04/2014 11:55 CDT Dependent Habits Tobacco Use/Currently Using : No Exposure to Tobacco Smoke : Care provider denies smoking in home Smoking Status : Former smoker JACKELINE NAVA LPN - 08/04/2014 11:55 CDT Caffeine Use Grid Caffeine Use : Current Type : Coffee Frequency : Daily Amount : 2 JACKELINE NAVA LPN - 08/04/2014 11:55 CDT Recreational Drug Use Grid Drug Use : None JACKELINE NAVA LPN - 08/04/2014 11:55 CDT Psychosocial Domestic Abuse Concerns : None Behavioral Health Screen/Safety Assmt : No Yarsani Preference : No qualifying data available. JACKELINE NAVA LPN - 08/04/2014 11:55 CDT Advance Directive Advanced Directives : No Advance Directive Additional Information : No JACKELINE NAVA LPN - 08/04/2014 11:55 CDT Educ Needs Learning Style Preference Adult Grid Patient : None Family : None JACKELINE NAVA LPN - 08/04/2014 11:55 CDT Source: [facility] POWERCHART Document Id: [id number] CDT!32 Miscellaneous - Jackeline Nava, L.P.N. - 08/04/2014 11:51 AM CDT Adult Powerhouse Laborer Intake/History Adult Powerhouse Laborer Intake/History Entered On: 08/04/2014 11:55 CDT Performed On: 08/04/2014 11:51 CDT by JACKELINE NAVA LPN Intake Chief Complaint : f/u ER,chest pain Temperature Core : 36.5 DegC(Converted to: 97.7 DegF) Peripheral Pulse Rate : 66 /min Respiratory Rate : 18 /min Heart Rhythm : Regular Systolic Blood Pressure : 151 mmHg (HI) Diastolic Blood Pressure : 52 mmHg NIBP Mean : 85 mmHg BP Location : Left upper extremity Blood Pressure Cuff Size : Regular SpO2 : 97 % Oxygen Therapy : Room air Height : 157.5 cm(Converted to: 5 ft 2 inch(es), 62 inch(es)) Actual Weight : 56.5 kg(Converted to: 124 lb 9 oz) Weight Source : Standing scale Dosing Weight Clinic : 56.5 kg Clinic BSA : 1.57 Body Mass Index : 22.78 kg/m2 JACKELINE NAVA LPN - 08/04/2014 11:51 CDT General Info Information Given By : Patient Languages : French Is Patient Female and 13-50 no hysterectomy : No JACKELINE NAVA LPN - 08/04/2014 11:51 CDT Subjective Pain Symptoms : No JACKELINE NAVA LPN - 08/04/2014 11:51 CDT Dependent Habits Tobacco Use/Currently Using : No Exposure to Tobacco Smoke : Care provider denies smoking in home Smoking Status : Never smoker Alcohol Use : Yes JACKELINE NAVA LPN - 08/04/2014 11:51 CDT Caffeine Use Grid Caffeine Use : Current Type : Coffee Frequency : Daily Amount : 2 JACKELINE NAVA LPN - 08/04/2014 11:51 CDT Recreational Drug Use Grid Drug Use : None JACKELINE NAVA LPN - 08/04/2014 11:51 CDT ID Screen Drug Resistant Organism : No Travel Within Last 21 Days : No Contact with someone with Ebola : No JACKELINE NVAA LPN - 08/04/2014 11:51 CDT Source: [facility] POWERCHART Document Id: [id number] CDT!44 documented in this encounter Plan of Treatment Not on filedocumented as of this encounter Procedures Procedure Name Priority Date/Time Associated Diagnosis Comme nts HEPATIC FUNCTION Routine 08/04/2014 12:55 PM Resu lts for this PANEL, S CDT procedure are i n the results section. documented in this encounter Results Hepatic Function Panel (08/04/2014 12:55 PM CDT) [facility] Method Time Signature Alkaline 76 55 - 142 POWERCHART Phosphatase, S UL Alanine 16 7 - 45 POWERCHART Amniotransferase, LD UNITL Aspartate 26 8 - 43 POWERCHART Aminotransferase UNITL (AST), S Bilirubin, Direct, S 0.1 0.0 - 0.3 POWERCHAR T MGDL Bilirubin, Total, S 0.6 0.1 - 1.0 POWERCHART MGDL Total Protein, S 7.7 6.3 - 7.9 POWERCHART GDL Albumin, S 4.3 3.5 - 5.0 POWERCHART GDL HXGlobulin 3.4 2.0 - 4.5 POWERCHART GDL Specimen (Source) Anatomical Collection Method Collection Time Re ceived Time Location / / Volume Laterality Blood 08/04/2014 12:55 PM CDT Sukhjinder Daniel M.D. LAB BLOOD ADD-ON Performing Organization Address City/State/ZIP Code Phon e Number POWERCHART documented in this encounter Visit Diagnoses Not on filedocumented in this encounter
--- OUTSIDE RECORDS SUMMARY | 2022-01-04 09:40 | XMS_ITS | Encounter Summary ---
:1935 Author Organization [facility] Address [address] [place] [address] Care Team Providers Name Role Phone Unavailable Primary Care Provider Unavailable Encounter Details Date Type Department Care Team Description 04/26/2013 Hospital Encounter HX [facility] ED Maki Mcfadden M.D. [address] [place] [phone] (Wo rk) Social History Tobacco Use Types Packs/Day Years Used Date Smoking Tobacco: Never Assessed Sex Assigned at Date Recorded Not on file documented as of this encounter Last Filed Vital Signs Vital Sign Reading Time Taken Comments Blood Pressure 162/63 04/26/2013 12:30 PM PROJECTOR OPERATOR Pulse 60 04/26/2013 12:30 PM PROJECTOR OPERATOR Temperature - - Respiratory Rate 16 04/26/2013 12:30 PM PROJECTOR OPERATOR Oxygen Saturation - - Inhaled Oxygen Concentration - - Weight - - Height 163 cm (5' 4.17) 04/26/2013 12:32 PM PROJECTOR OPERATOR Body Mass Index - - documented in this encounter Discharge Summaries Ruiz Wisdom R.N. - 04/26/2013 1:48 PM CST ED Discharge Instructions [facility] [address] [place] [address] Name: JUAN J RANGEL Date of : 1935 12:00 AM Visit Date: 04/26/2013 11:32 AM [facility] Number: [id number] Address: [address] [facility] [id number] Primary Care Provider: MAGO GOLDEN MD IMPORTANT: [facility] in [place] would like to thank you for allowing us to assist you with your healthcare needs. The following includes patient education materials and informationregarding your injury/illness. Chief Complaint: Chest Pain Follow-Up Instructions: With: Address: When: Follow up with Cardiology at [facility] on > patient will see Dr Singh and get further evaluation and testing if needed. APPOINTMENT IS SCHEDULED. In 3 days 04/29/2013 Comments: Patient Education Materials: [id number] CHEST PAIN, UNCERTAIN CAUSE Based on your exam today, the exact cause of your chest pain is not certain. Your condition does notseem serious at this time, and your pain does not appear to be coming from your heart. However, sometimes the signs of a serious problem take more time to appear. Therefore, watch for the warning signslisted below. HOME CARE: ?? Rest today and avoid strenuous activity. ?? Take any prescribed medicine as directed. FOLLOW UP with your doctor or this facility as instructed or if you do not start to feel better within 24 hours. [NOTE: If an X-ray or EKG (cardiogram) was made, it will be reviewed by another specialist. You willbe notified of any new findings that may affect your care.] GET PROMPT MEDICAL ATTENTION if any of the following occur: ?? A change in the type of pain: if it feels different, becomes more severe, lasts longer, or beginsto spread into your shoulder, arm, neck, jaw or back ?? Shortness of breath or increased pain with breathing ?? Weakness, dizziness, or fainting ?? Cough with dark colored sputum (phlegm) or blood ?? Fever of 100.4??F (38??C) or higher, or as directed by your healthcare provider Swelling, pain or redness in one leg ?? [id number] [facility], [address] [place] [address], [place] [address]. All rights reserved. This information is not intended as a substitute for professional medical care. Always follow your healthcare professional's instructions. ED Tests and Procedures: Order Status C difficile Toxin PCR-Two Dot CDFRP Ordered Comprehensive Metabolic Panel Completed Troponin T Completed CKMB Completed XR Chest 1 view portable Completed Discharge Prescriptions & Home Medications: Medication/Strength Dose Route Frequency Indications/Special Instructions/Comments/Notes aspirin (Aspirin Enteric Coated 325 mg oral delayed release tablet) 325 mg Oral once a day start with two time per day for one week omeprazole (omeprazole 20 mg oral delayed release tablet) 20 mg Oral once a day betamethasone topical (betamethasone valerate 0.1% topical lotion) 1 js Topical two times a day as needed for rash to scalp indomethacin (indomethacin 50 mg oral capsule) 50 mg Oral three times a day as needed for Gout pain Take with food lisinopril-hydrochlorothiazide (lisinopril-hydrochlorothiazide 20 mg-25 mg oral tablet) 1 tab(s) Oral once a day (Zestoretic) atenolol (atenolol 50 mg oral tablet) 50 mg Oral once a day calcium-vitamin D [...] at all times in case of emergency. Medication Reconciliation: Reconciliation is a process of identifying the most accurate list of all medications a patient is taking - including name, dosage, frequency, and route - and using this list to provide to the patient information about how to take those medications. JUAN J RANGEL or nataliaee has reviewed the home medications you have listed with us. Review the following instructions: You have NOT received any prescriptions and you have told us you are not currently taking any home medications You have NOT received any prescriptions. You have been provided a discharge medications list and you may CONTINUE taking your medications as previously prescribed by your regular providers. You have received the listed prescriptions and BEGIN all listed prescriptions as directed. Since you have listed no home medications, please check with your family doctor if you are taking any other medications. You have received the listed prescriptions and BEGIN all listed prescriptions as directed. Youhave been provided a discharge medications list and you may CONTINUE all home medications as previously prescribed by your regular providers. You have received the listed prescriptions and BEGIN all listed prescriptions as directed. Youhave been provided a discharge medications list. The following CHANGES have been made to your medication list; Otherwise, CONTINUE all home medications as previously prescribed by your regular provider. IMPORTANT: We examined and treated you today [...] ride home with a responsible green party. ICLAIRE CAROL LAVONNE , or responsible green party have received this information and my questions have been answered. I have discussed any challenges I see with this plan with the nurse or physician. Patient Signature or Responsible Green Party/Relationship Date Time Provider Signature Date Time Medication Reconciliation: Reconciliation is a process of identifying the most accurate list of all medications a patient is taking - including name, dosage, frequency, and route - and using this list to provide to the patient information about how to take those medications. JUAN J RANGEL or designee has reviewed the home medications you have listed with us. Review the following instructions: You have NOT received any prescriptions and you have told us you are not currently taking any home medications You have NOT received any prescriptions. You have been provided a discharge medications list and you may CONTINUE taking your medications as previously prescribed by your regular providers. You have received the listed prescriptions and BEGIN all listed prescriptions as directed. Since you have listed no home medications, please check with your family doctor if you are taking any other medications. You have received the listed prescriptions and BEGIN all listed prescriptions as directed. Youhave been provided a discharge medications list and you may CONTINUE all home medications as previously prescribed by your regular providers. You have received the listed prescriptions and BEGIN all listed prescriptions as directed. Youhave been provided a discharge medications list. The following CHANGES have been made to your medication list; Otherwise, CONTINUE all home medications as previously prescribed by your regular provider. IMPORTANT: We examined and treated you today [...] nurse or physician. Patient Signature or Responsible Green Party/Relationship Date Time Provider Signature Date Time This document has images extracted. Please consider using [email or web address] for all your patient education needs. Source: [facility] General Assembly Document Id: [id number] ECTOR OPERATOR Ruiz Wisdom R.N. - 04/26/2013 1:48 PM CST ED Depart Summary [facility] Emergency Department Clinical Discharge Summary PERSON INFORMATION Name JUAN J RANGEL Age 78 Years 1935 12:00 AM Sex Female Language Dutch PCP MAGO GOLDEN MD Marital Status Visit Id Visit Reason Chest Pain Specialty Enc Type Emergency Med Service Emergency Medicine Referred by Track Group [facility] ED Discharge 04/26/2013 1:35 PM Tracking Id [id number] Checkout 04/26/2013 1:35 PM Checkin 04/26/2013 11:32 AM Acuity 3 -Urgent Dispo Type * Discharged to Home or Self Care Arrival 04/26/2013 11:32 AM Reg Status LOS 000 02:03 Address: [address] [place] [phone] Comment: PROVIDER INFORMATION Provider Role Provider Contact Time MARISOL MCFADDEN MD ED Provider 04/26/13 12:05 DIAGNOSIS Chest pain Comment: PATIENT EDUCATION INFORMATION Instructions: CHEST PAIN, Uncertain Cause Follow up: With: Address: When: Follow up with Cardiology at [facility] on > patient will see Dr Singh and get further evaluation and testing if needed. APPOINTMENT IS SCHEDULED. In 3 days 04/29/2013 Comments: Source: [facility] Document Id: [id number] ECTOR OPERATOR documented in this encounter Medications at Time of Discharge Medication Sig Dispensed Refills Start Date End Date CALCIUM CARB/VIT Take by mouth daily. 0 1 01/21/2019 D3/MINERALS (CALCIUM-VITAMIN D ORAL) [id number] Take 1 capsule by 0 011 05/30/2018 oil 1,400 mg/5 mL liquid mouth daily. documented as of this encounter ED Notes Ruiz Wisdom R.N. - 04/26/2013 1:45 PM CST ED Pain Assessment ED Pain Assessment Entered On: 04/26/2013 13:45 PROJECTOR OPERATOR Performed On: 04/26/2013 13:45 PROJECTOR OPERATOR by RUIZ WISDOM RN Pain Assessment Pain Symptoms : No RUIZ WISDOM RN - 04/26/2013 13:45 PROJECTOR OPERATOR Source: [employer] Document Id: [id number] PROJECTOR OPERATOR!3 ECTOR OPERATOR Ruiz Wisdom R.N. - 04/26/2013 1:44 PM CST ED Disposition Summary ED Disposition Summary Entered On: 04/26/2013 13:45 PROJECTOR OPERATOR Performed On: 04/26/2013 13:44 PROJECTOR OPERATOR by RUIZ WISDOM RN ED Disposition Summary Accompanied By : Spouse Mode of Discharge : Ambulatory Transportation : Private vehicle Transporter : machine coremaker From ED With : Home Med List Printed Discharge Instructions Given to Patient : Yes Patient Status at Discharge from ED : Improved RUIZ WISDOM RN - 04/26/2013 13:44 PROJECTOR OPERATOR Source: [employer] Document Id: [id number] PROJECTOR OPERATOR!9 ECTOR OPERATOR Marisol Mcfadden M.D. - 04/26/2013 12:03 PM CST Chest pain Patient: JUAN J RANGEL Age: 78 years Sex: Female : 1935 Author: MARISOL MCFADDEN MD Attachments: None Associated Diagnosis: Chest pain 786.50; Stable angina 413.9 Basic Information Time seen: Date & time 04/26/2013 12:03:00. Additional information: Chief Complaint from Nursing Triage Note : (Date Range: 04/25/2013 0:00 PROJECTOR OPERATOR - 04/26/2013 12:03 PROJECTOR OPERATOR). History of Present Illness The patient presents with chest pain. The onset was 3 days ago. The course/duration of symptoms is episodic: with multiple episodes, lasting 1 minutes, Lasting less than a minute. and She had many episodes last night. Some of those episodes of pain were also associated with belching.. Location: Left la teral chest Radiating to the back.. The character of symptoms is sharp. The degree at onset was moderate. The degree at maximum was severe. The degree at present is none. Exacerbating factors: not exertion, movement, breathing, coughing, eating or palpation. The relieving factor is The pain goes away s pontaneously.. Prior episodes: none. Therapy today Aspirin. Associated symptoms: denies shortness ofbreath, denies nausea, denies vomiting, denies diaphoresis, denies anxiety and denies palpitations. Additional history: Some of these episodes are associated with Belching.. Review of Systems Constitutional symptoms: No fever or no chills. Eye symptoms: Vision unchanged, but no recent vision problems. ENMT symptoms: No ear pain. Respiratory symptoms: No shortness of breath, no orthopnea, no cough, no hemoptysis, no stridor or no wheezing. Sputum production: none. Cardiovascular symptoms: Chest pain, but no tachycardia, no syncope or no diaphoresis. Gastrointestinal symptoms: No abdominal pain, no nausea, no vomiting, no diarrhea or no constipation. Genitourinary symptoms: No dysuria or no hematuria. Musculoskeletal symptoms: No back pain or no Muscle pain. Neurologic symptoms: No headache, no dizziness or no altered level of consciousness. Psychiatric symptoms: Anxiety. Endocrine symptoms: No polyuria. Additional review of systems information: All other systems reviewed and otherwise negative. Health Status Allergies: Allergic Reactions (Selected) NKA. Past Medical/ Family/ Social History Medical history: Active Hypertension (401.9): Onset in 1990 at 55 years. Resolved Tick Bite (919.4): Onset in 2011 at 76 years. Resolved.. Surgical history: Colonoscopy ([id number]) in 2006 at 71 Years. Comments: 01/28/2011 08:40 - GINNA TEJADA MD, Dr in [place] One sessile polyp recommended repeat in 5 years Hysterectomy ([id number]) in 1975 at 41 Years.. Family history: Diabetes mellitus Mother () Hypertension Mother () Father () Alzheimer's disease Father () . Physical Examination Vital Signs: Per nurse's notes. General: Alert and mild distress. Skin: Warm and moist. Head: Normocephalic and atraumatic. Neck: Supple, trachea midline, no tenderness and no JVD. Eye: Pupils are equal, round and reactive to light, extraocular movements are intact, normal conjunctiva and vision grossly normal. Ears, nose, mouth and throat: Tympanic membranes clear, oral mucosa moist and no pharyngeal erythemaor exudate. Cardiovascular: Regular rate and rhythm, No murmur, Normal peripheral perfusion, No edema and Bruit:None. Respiratory: Breath sounds are equal, Symmetrical chest wall expansion, Respirations: Regular, Retractions: None and Clubbing of nails: None. Chest wall: No tenderness and No deformity. Back: Nontender, Normal range of motion and Normal alignment. Musculoskeletal: Normal ROM. normal strength. no tenderness. Gastrointestinal: Soft, Nontender, Non distended, Normal bowel sounds and No organomegaly. Genitourinary: No tenderness and no discharge. Neurological: Alert and oriented to person, place, time, and situation, No focal neurological deficit observed, CN II-XII intact, normal sensory observed, normal motor observed and normal speech observed. Lymphatics: No lymphadenopathy. Psychiatric: Cooperative and appropriate mood & affect. Medical Decision Making Differential Diagnosis:Angina, atypical chest pain. Documents reviewed:Emergency department nurses' notes. OrdersLaunch Orders Laboratory: CPK-mb (Order Processing): Stat, 04/26/2013 12:04 PROJECTOR OPERATOR, Once Troponin T (Order Processing): Stat, 04/26/2013 12:03 PROJECTOR OPERATOR, Once Comprehensive Metabolic Panel (Order Processing): Stat, 04/26/2013 12:03 PROJECTOR OPERATOR, Once C difficile Toxin PCR-Two Dot CDFRP (Order Processing): Stat, 04/26/2013 12:03 PROJECTOR OPERATOR, Once, Launch Orders Pharmacy: [facility] (Order Processing): 45 mL, PO, Once, Launch Orders Radiology: CXR 1 view portable (Order Processing): 04/26/2013 12:04 PROJECTOR OPERATOR, CHEST PAIN, Stat, Patient Bed, Once, 04/26/2013 12:04 PROJECTOR OPERATOR, [facility] ED. Electrocardiogram:Normal sinus rhythm, No ST-T changes, normal OR & QRS intervals. secured entrance monitor:Normal sinus rhythm. Results review:Lab results : Lab View 04/26/2013 11:45 PROJECTOR OPERATOR Sodium Lvl 136.5 mM/L Potassium Lvl 3.5 mmol/L LOW Chloride 100 mmol/L CO2 25.9 mmol/L AGAP 14 mmol/L Alkaline Phosphatase 70 U/L Glucose Lvl 99 mg/dL Creatinine 0.94 mg/dL EGFR (MDRD) 58 mL/min/1.73m2 LOW EGFR (MDRD) >60 mL/min/1.73m2 BUN 22 mg/dL HI Calcium Lvl 10.0 mg/dL Protein Total 7.6 g/dL Albumin Lvl 4.3 g/dL AST 24 U/L ALT 21 U/L Bili Total 0.5 mg/dL CK-MB 3.5 ng/mL Troponin-T <0.01 ng/mL . Chest X-Ray:* Final Report * Reason For Exam CHEST PAIN Report 26-Apr-2013 12:17:00 Exam: Portable-Chest Indications: CHEST PAIN 26-Apr-2013 12:18 CA Chest; 1 view: Aortic calcifications. Portable chest otherwise negative. No significant change since 10/11/2011. Ilia Biggs MD. [id number] 26-Apr-2013 12:18 Signature Line Final . Reexamination/ Reevaluation Vital signs results included from flowsheet : Vital Signs 04/29/2013 11:27 PROJECTOR OPERATOR Peripheral Pulse Rate 63 /min SpO2 97 % Systolic Blood Pressure 158 mmHg HI Diastolic Blood Pressure 52 mmHg Mean Arterial Pressure 87 mmHg Course: improving. Pain status: resolved. Assessment: exam unchanged. Impression and Plan Diagnosis Chest pain 786.50 (Discharge, Emergency medicine, Medical) Stable angina 413.9 (Discharge, Emergency medicine, Medical) Plan Condition: Stable, Pain free.. Disposition: Discharged: to home. Patient was given the following educational materials: CHEST PAIN, Uncertain Cause. Follow up with: Follow up with Cardiology at [facility] on [facility]> patient will see Dr Singh and get further evaluation and testing if needed. APPOINTMENT IS SCHEDULED. In 3 days 04/29/2013. Counseled: Patient, Regarding diagnosis, Regarding diagnostic results, Regarding treatment plan, Regarding prescription, Patient indicated understanding of instructions. Notes: A close follow up with Cardiology is scheduled for further evaluation and treatment.. Electronically Signed By: MARISOL MCFADDEN MD On: 04/30/2013 06:53 AM Modified by and Electronically Signed by: MARISOL MCFADDEN MD On: 04/26/2013 12:55 PM Source: [facility] POWERCHART Document Id: [id number]} ECTOR OPERATOR Ruiz Wisdom R.N. - 04/26/2013 12:00 PM CST ED Triage Assessment Document Has Been Updated ED Triage Assessment Entered On: 04/26/2013 13:38 PROJECTOR OPERATOR Performed On: 04/26/2013 12:00 PROJECTOR OPERATOR by RUIZ WISDOM RN Reason For Visit (As Of: 04/26/2013 13:38:20 PROJECTOR OPERATOR) Problems(Active) Aortic insufficiency (ICD-9-CM :424.1 ) Name of Problem: Aortic insufficiency ; Onset Date: 10/20/2011 ; Recorder: BATSHEVA NEWBY RN; Confirmation: Confirmed ; Classification: Nursing ; Code: 424.1; Contributor System: [employer] ; Last Updated: 12/06/2011 10:38 CDT ; Life Cycle Date: 11/01/2011 ; Life Cycle Status: Active ; Responsible Provider: BATSHEVA NEWBY RN; Vocabulary: ICD-9-CM ; Comments: 12/06/2011 8:34 - RUBENS AGUILAR LPN unknown date of dx 12/06/2011 10:38 - HUBER CORRALES DNP, PALEOLOGY TEACHER stress test Gout NOS (ICD-9-CM :274.9 ) [...] Classification: Medical ; Code: 401.9 ; Contributor System:[employer] ; Last Updated: 10/18/2011 11:58 CDT ; Life Cycle Date: 11/09/2010 ; Life Cycle Status: Active ; Responsible Provider: MAY DAVIDSON LPN; Vocabulary: ICD-9-CM Diagnoses(Active) Chest pain Date: 04/26/2013 ; Diagnosis Type: Discharge ; Confirmation: Confirmed ; Clinical Dx: Chest pain ; Classification: Medical ; Clinical Service: Emergency medicine ; Code: PNED ; Probability: 0 ; Diagnosis Code: [id number] Triage Chief Complaint Description : 78 year old female presents with complaints of left sided chest pain beginning yesterday. States she is not having pain now; is episodic. Last episode this morning. Information Given By : Patient Accompanied By : Spouse Mode of Arrival ED : Private vehicle Track : Medical Languages : Dutch Patient Informed of Triage Location : Emergency department Vital Signs Assessed : Yes Treatments Prior to Arrival : None RUIZ WISDOM RN - 04/26/2013 13:29 PROJECTOR OPERATOR Vital Signs Temperature Core : 36.5 DegC(Converted to: 97.7 DegF) Peripheral Pulse Rate : 65 /min Respiratory Rate : 18 /min Systolic Blood Pressure : 147 mmHg (HI) Diastolic Blood Pressure : 71 mmHg NIBP Mean : 96 mmHg BP Location : Left upper extremity SpO2 : 98 % Oxygen Saturation Monitoring Frequency : Continuous Oxygen Therapy : Room air RUIZ WISDOM RN - 04/26/2013 13:29 PROJECTOR OPERATOR Pain Assessment Pain Symptoms : No RUIZ WISDOM RN - 04/26/2013 13:29 PROJECTOR OPERATOR ED Physician Notification Time ED Physician Notification Time : 04/26/2013 12:00 PROJECTOR OPERATOR RUIZ WISDOM RN - 04/26/2013 13:29 PROJECTOR OPERATOR QUIN QUIN Level 1 : No QUIN Level 2 : No QUIN Level 3 : One RUIZ WISDOM RN - 04/26/2013 13:29 PROJECTOR OPERATOR DCP GENERIC CODE Tracking Acuity : 3 -Urgent Tracking Group : [facility] ED RUIZ WISDOM RN - 04/26/2013 13:29 PROJECTOR OPERATOR Allergy (As Of: 04/26/2013 13:38:21 PROJECTOR OPERATOR) Allergies (Active) NKA Estimated Onset Date: Unspecified ; Created By: SHERYL SANTO LPN, RT; Reaction Status: Active ; Category: Drug ; Substance: NKA ; Type: Allergy ; Updated By: SHERYL SANTO LPN, RT; Reviewed Date: 04/26/2013 12:04 PROJECTOR OPERATOR Source: [facility] POWERCHART Document Id: [id number] PROJECTOR OPERATOR!33 ECTOR OPERATOR Ruiz Wisdom R.N. - 04/26/2013 12:00 PM CST ED Primary Assessment Document Has Been Updated ED Primary Assessment Entered On: 04/26/2013 13:40 PROJECTOR OPERATOR Performed On: 04/26/2013 12:00 PROJECTOR OPERATOR by RUIZ WISDOM RN Reason For Visit (As Of: 04/26/2013 13:40:56 PROJECTOR OPERATOR) Problems(Active) Aortic insufficiency (ICD-9-CM :424.1 ) Name of Problem: Aortic insufficiency ; Onset Date: 10/20/2011 ; Recorder: BATSHEVA NEWBY RN; Confirmation: Confirmed ; Classification: Nursing ; Code: 424.1; Contributor System: [employer] ; Last Updated: 12/06/2011 10:38 CDT ; Life Cycle Date: 11/01/2011 ; Life Cycle Status: Active ; Responsible Provider: BATSHEVA NEWBY RN; Vocabulary: ICD-9-CM ; Comments: 12/06/2011 8:34 - RUBENS AGUILAR LPN unknown date of dx 12/06/2011 10:38 - HUBER CORRALES DNP, PALEOLOGY TEACHER stress test Gout NOS (ICD-9-CM :274.9 ) [...] Classification: Medical ; Code: 401.9 ; Contributor System:[employer] ; Last Updated: 10/18/2011 11:58 CDT ; Life Cycle Date: 11/09/2010 ; Life Cycle Status: Active ; Responsible Provider: MAY DAVIDSON LPN; Vocabulary: ICD-9-CM Diagnoses(Active) Chest pain Date: 04/26/2013 ; Diagnosis Type: Discharge ; Confirmation: Confirmed ; Clinical Dx: Chest pain ; Classification: Medical ; Clinical Service: Emergency medicine ; Code: PNED ; Probability: 0 ; Diagnosis Code: [id number] Triage Chief Complaint Description : See triage note. Mode of Arrival ED : Private vehicle Track : Medical Languages : Dutch Treatments Prior to Arrival : None RUIZ WISDOM RN - 04/26/2013 13:38 PROJECTOR OPERATOR Pain Assessment Pain Symptoms : No RUIZ WISDOM RN - 04/26/2013 13:38 PROJECTOR OPERATOR Respiratory Airway : Patent Respirations : Unlabored Respiratory Pattern : Regular RUIZ WISDOM RN - 04/26/2013 13:38 PROJECTOR OPERATOR Cardiovascular Heart Rhythm : Regular Skin Color : [place] Skin Description : Normal Skin Temperature : Warm Cardiovascular Detailed Assessment : Yes RUIZ WISDOM RN - 04/26/2013 13:38 PROJECTOR OPERATOR CV Detailed CV Patient Stated Symptoms : Chest pain (Comment: not currently; brief episode this morning [RUIZ WISDOM RN - 04/26/2013 13:38 PROJECTOR OPERATOR] ) Nail Bed Color : [place] Capillary Refill : Less than 2 seconds Heart Sounds ICU : S1S2 Cardiac Rhythm : Sinus rhythm Ectopy Frequency : None RUIZ WISDOM RN - 04/26/2013 13:38 PROJECTOR OPERATOR Neurological Last Well Time Known : Not applicable Level of Consciousness : Alert Orientation : Oriented x 3 Characteristics of Speech : Clear RUIZ WISDOM RN - 04/26/2013 13:38 PROJECTOR OPERATOR ED Psychosocial Affect/Behavior : Calm, Cooperative, Appropriate Domestic Abuse Concerns : None RUIZ WISDOM RN - 04/26/2013 13:38 PROJECTOR OPERATOR Gastrointestinal Nutrition ED : Adequate RUIZ WISDOM RN - 04/26/2013 13:38 PROJECTOR OPERATOR Musculoskeletal Fall Prevention Education Provided : Yes RUIZ WISDOM RN - 04/26/2013 13:38 PROJECTOR OPERATOR Social Habits Tobacco Use/Currently Using : No Exposure to Tobacco Smoke : Care provider denies smoking in home Smoking Status : Never smoker RUIZ WISDOM RN - 04/26/2013 13:38 PROJECTOR OPERATOR Tobacco Use Grid Last Use : never RUIZ WISDOM RN - 04/26/2013 13:38 PROJECTOR OPERATOR Recreational Drug Use Grid Drug Use : None RUIZ WISDOM RN - 04/26/2013 13:38 PROJECTOR OPERATOR Source: [facility] Document Id: [id number] PROJECTOR OPERATOR!48 ECTOR OPERATOR documented in this encounter Miscellaneous Notes Miscellaneous - Ruiz Wisdom R.N. - 04/26/2013 1:45 PM CST Valuables/Belongings Valuables/Belongings Entered On: 04/26/2013 13:45 PROJECTOR OPERATOR Performed On: 04/26/2013 13:45 PROJECTOR OPERATOR by RUIZ WISDOM RN Valuables/Belongings Home Medication Disposition : None brought in with patient RUIZ WISDOM RN - 04/26/2013 13:45 PROJECTOR OPERATOR Source: [facility] Document Id: [id number] PROJECTOR OPERATOR!3 ECTOR OPERATOR Miscellaneous - Ruiz Wisdom R.N. - 04/26/2013 11:32 AM CST Facility Charge Ticket 2.0 11.0 DX Facility Charge Ticket 2.0 11.0 DX Entered On: 04/26/2013 13:46 PROJECTOR OPERATOR Performed On: 04/26/2013 11:32 PROJECTOR OPERATOR by RUIZ WISDOM RN Facility Charge Ticket 2.0 11.0 DX ED Other Charges : Standard ED Encounter TVL Level for Facility Charge Ticket : Level 3 Arrival Mode Calc : 1 Mode of Arrival ED : Private vehicle [facility] Mode of Arrival Interpreted : Standard [facility] Process Management : None Order Management RTF : Laboratory Comprehensive Metabolic Panel,04/26/13 12:03,MARISOL MCFADDEN MD Completed Troponin T,04/26/13 12:03,MARISOL MCFADDEN MD Completed CPK-mb,04/26/13 12:04,MARISOL MCFADDEN MD Completed C difficile Toxin PCR-Two Dot CDFR,04/26/13 12:03,MARISOL MCFADDEN MD Ordered Xray CXR 1 view portable,04/26/13 12:04,MARISOL MCFADDEN MD Completed [facility] Order Management : Lab tests, Xray - plain films 30 Minutes Critical Care : No Nursing Notes RTF : Triage Forms ED Triage Assessment,04/26/13 12:00,RUIZ WISDOM RN Nursing Notes ED Primary Assessment,04/26/13 12:00,RUIZ WISDOM RN ED Pain Assessment,04/26/13 13:45,RUIZ WISDOM RN [facility] Nursing Assessment : Triage and 1-2 nursing assessments [facility] Disposition : Discharge [facility] Total Points with Diagnosis Control : 7 [facility] Visit Level : 61116 Level 3 Treatments Prior to Arrival : None RUIZ WISDOM RN - 04/26/2013 13:45 PROJECTOR OPERATOR Chief Complaint 11.0 Reason For Visit Category : Cardiorespiratory TVL Calculation : 20 ED Chief Complaint Cardiorespiratory 11.0 : Chest pain TVL for Facility Charge Ticket Dx : Level 3 RUIZ WISDOM RN - 04/26/2013 13:45 PROJECTOR OPERATOR Source: [facility] Document Id: [id number] PROJECTOR OPERATOR!22 ECTOR OPERATOR documented in this encounter Plan of Treatment Not on filedocumented as of this encounter Procedures Procedure Name Priority Date/Time Associated Comments Diagnosis CREATINE KINASE (CK) Routine 04/26/2013 11:45 Res ults for this MB ISOENZYME, S AM PROJECTOR OPERATOR procedure ar e in the results section. TROPONIN T, 5TH GEN, P Routine 04/26/2013 11:45 R esults for this AM PROJECTOR OPERATOR procedure are i n the results section. COMPREHENSIVE Routine 04/26/2013 11:45 Results fo r this METABOLIC PANEL, S/P AM PROJECTOR OPERATOR procedu re are in the results section. documented in this encounter Results Creatine Kinase (CK) MB Isoenzyme (04/26/2013 11:45 AM PROJECTOR OPERATOR) P athologist Signature Creatine 3.5 0.1 - 6.2 POWERCHART Kinase(CK) MB NGML Isoenzyme, S Specimen (Source) Anatomical Collection Method Collection Time Re ceived Time Location / / Volume Laterality Blood 04/26/2013 11:45 AM PROJECTOR OPERATOR Marisol Mcfadden M.D. LAB BLOOD ADD-ON Performing Organization Address City/State/ZIP Code Phon e Number POWERCHART Troponin T (04/26/2013 11:45 AM PROJECTOR OPERATOR) P athologist Signature Troponin T, S <0.01 0.00 - 0.10 POWERCHART NGML Comment: 0.03 - 0.1 ng/mL Intermediate Z one Specimen (Source) Anatomical Collection Method Collection Time Re ceived Time Location / / Volume Laterality Blood 04/26/2013 11:45 AM PROJECTOR OPERATOR Marisol Mcfadden M.D. LAB BLOOD ADD-ON Performing Organization Address City/State/ZIP Code Phon e Number POWERCHART (ABNORMAL) CMP (Comprehensive Metabolic Panel) (04/26/2013 11:45 AM PROJECTOR OPERATOR) Patholo gist Method Time Signature Anion Gap 14 10 - 20 POWERCHART MMOLL Alkaline 70 55 - 142 POWERCHART Phosphatase, S UL Alanine 21 15 - 37 POWERCHART Amniotransferase, LD UL Aspartate 24 12 - 31 POWERCHART Aminotransferase UL (AST), S Bilirubin, Total, S 0.5 0.1 - 1.0 POWERCHART MGDL BUN (Blood Urea 22 (H) 7 - 18 POWERCHART Nitrogen), S MGDL Chloride, S 100 98 - 107 POWERCHART MMOLL CO2 Total 25.9 23.0 - POWERCHART 29.0 MMOLL Creatinine 0.94 0.60 - POWERCHART 1.30 MGDL Total Protein, S 7.6 6.3 - 7.9 POWERCHART GDL Glucose 99 70 - 139 POWERCHART MGDL Calcium, Total, S 10.0 8.8 - POWERCHART 10.2 MGDL Sodium, S 136.5 135.0 - POWERCHART 145.0 MML Potassium, S 3.5 (L) 3.6 - 4.8 POWERCHART MMOLL Albumin, S 4.3 3.5 - 5.0 POWERCHART GDL HXeGFR (MDRD) 58 (L) >=60 POWERCHART [id number] 2 eGFR Black/ >60 >=60 POWERCHART Citizen Of [place] [id number] Specimen (Source) Anatomical Collection Method Collection Time Re ceived Time Location / / Volume Laterality Blood 04/26/2013 11:45 AM PROJECTOR OPERATOR Marisol S Turna M.D. LAB BLOOD ADD-ON Performing Organization Address City/State/ZIP Code Phon e Number POWERCHART documented in this encounter Visit Diagnoses Not on filedocumented in this encounter
--- OUTSIDE RECORDS SUMMARY | 2022-01-04 09:40 | XMS_ITS | Encounter Summary ---
:1935 Author Organization [facility] Address [address] [place] [address] Care Team Providers Name Role Phone Unavailable Primary Care Provider Unavailable Encounter Details Date Type Department Care Team Description 08/21/2013 Hospital Encounter HX [facility] Mago coyle M.D. [address] [id number] (Wo rk) Social History Tobacco Use Types Packs/Day Years Used Date Smoking Tobacco: Never Assessed Sex Assigned at Date Recorded Not on file documented as of this encounter Last Filed Vital Signs Vital Sign Reading Time Taken Comments Blood Pressure 130/56 08/21/2013 2:24 PM CDT Pulse 70 08/21/2013 2:16 PM CDT Temperature - - Respiratory Rate 14 08/21/2013 2:16 PM CDT Oxygen Saturation - - Inhaled Oxygen Concentration - - Weight 58.8 kg (129 lb 10.1 oz) 08/21/2013 2:16 PM CDT Height 158 cm (5' 2.21) 08/21/2013 2:24 PM CDT Body Mass Index 23.55 08/21/2013 2:16 PM CDT documented in this encounter Medications at Time of Discharge Medication Sig Dispensed Refills Start Date End Date CALCIUM CARB/VIT Take by mouth daily. 0 1 01/21/2019 D3/MINERALS (CALCIUM-VITAMIN D ORAL) [id number] Take 1 capsule by 0 011 05/30/2018 oil 1,400 mg/5 mL liquid mouth daily. documented as of this encounter H&P Notes Mago Hermosillo M.D. - 08/21/2013 2:12 PM CDT [id number] CHIEF COMPLAINT/REASON FOR VISIT Preop exam. HISTORY OF PRESENT ILLNESS Juan J is a 78-year-old, female who comes in today for preop exam prior to undergoing a colonoscopy on August 28. She has no concerns today. She has had procedures in the past and denies any difficulty with anesthesia, bleeding or history of blood clots. She does note that she had a bad gouty attack in May and was prescribed indomethacin. She continues to take just a small amount of indomethacin intermittently for some residual pain. She wonders if this is okay. MEDICATIONS Aspirin 325 mg by mouth daily. Atenolol 50 mg by mouth daily. Betamethasone 0.1% applied to the scalp twice daily as needed. Calcium plus vitamin D. Fish oil daily. Indocin 50 mg by mouth 3 times a day as needed for gout pain. Lisinopril/hydrochlorothiazide 20/25 mg by mouth daily. Omeprazole 20 mg by mouth daily. ALLERGIES No known drug allergies. SYSTEMS REVIEW CONSTITUTIONAL: Patient denies fever, chills, sweats, fatigue, appetite change, temperature intolerance or weight change. EYES: Patient denies double vision, blurred vision, pain or redness. ENT: Patient denies nasal drainage, congestion, nosebleeds, sinus problems, sores on lips or mouth, sore throator changes in voice. RESPIRATORY: Patient denies cough, sputum production, shortness of breath, and wheezing. SKIN: Patient denies any sores or rash. CARDIOVASCULAR SYSTEM: Patient does have a history of a heart murmur due to aortic regurgitation. She has no problems with chest pain, DVT, PE, peripheral edema or palpitations. GI: Patient denies swallowing difficulties, heartburn, abdominal pain, nausea, vomiting, constipation, diarrhea, black or bloody stools or hemorrhoids. GENITOURINARY: Patient denies problems urinating or frequency. No abnormal vaginal bleeding or discharge. MUSCULOSKELETAL: Patient does have some joint pain related to gout which is mild. NEUROLOGIC: Patient denies any headaches, history of head injury, blacking out, or confusion. No seizures, difficulty with vision, speech, walking, or weakness in arm or leg. ENDOCRINE: Patient denies changes in her hair, skin, excessive thirst, urination, or diabetes. MENTAL HEALTH: Patient denies anxiety, depression, insomnia, or abuse. LYMPHATIC/HEMATOLOGIC: Patient denies masses, swelling, or unusual bruising or bleeding. PAST MEDICAL/SURGICAL HISTORY PAST MEDICAL HISTORY: 1. History of gout. 2. Hyperlipidemia. 3. Hypertension. 4. Aortic regurgitation, last echocardiogram was in June of 2013 showing an EF of 60% with mild to moderate left ventricular enlargement and grade 1 diastolic dysfunction. She is noted to have moderate aortic regurgitation and mild mitral valve regurgitation. PAST SURGICAL HISTORY: 1. Hysterectomy in 1975 for abnormal bleeding. 2. Last colonoscopy in 2006 had colon polyps. FAMILY HISTORY Patient's mother at age 91 from complications of diabetes. She also had hypertension. Patient'sfather at age 76 from Alzheimer disease and he also had hypertension. She has a brother who at age 26 from an accident, another brother who is healthy, and a son who has high blood pressure. SOCIAL HISTORY Patient lives with her of almost 60 years. They have 4 kids and 11 grandchildren. She is a never tobacco user. She drinks very little alcohol. For exercise she stays very active, mainly with walking. VITAL SIGNS Temperature 36.8, pulse is 70 beats per minute, respiratory rate is 14 breaths per minute, blood pressure is 138/65, recheck is 130/56, oxygen saturation is 98% on room air. Height is 158 cm, weight is58.8 kg. BMI is 23.5. PHYSICAL EXAMINATION GENERAL: Alert and oriented. No acute distress. HEAD: Atraumatic. Normocephalic. EYES: Pupils equal, round, and reactive to light. Extraocular movements intact. EARS: Tympanic membrane clear with good light reflex bilaterally. NOSE: No nasal discharge. MOUTH: Oral mucosa moist. No oral lesions. THROAT: No oropharyngeal erythema. No tonsillar enlargement. NECK: Supple. No lymphadenopathy. Patient does have murmur radiating up to both carotids. CARDIOVASCULAR: Regular rate and rhythm. Patient has a 2/6 murmur although I attempted to listen fora diastolic murmur, I did not definitely hear one although cardiology noted one at her visit in April. LUNGS: Clear to auscultation bilaterally. No accessory muscle use. ABDOMEN: Soft. Nontender. Nondistended. No masses, rebound, or guarding. Normoactive bowel sounds. No pulsatile abdominal masses. EXTREMITIES: No pedal edema. 2+ dorsalis pedis pulses. NEUROLOGIC: Cranial nerves II through XII intact. No focal deficits. PSYCHIATRIC: Mood stable. DIAGNOSTICS LABORATORY DATA: Hemoglobin is 12.2, white blood cell count is 7,300, platelet count is 310,000. Sodium is 139.5, potassium 3.4, chloride 104, bicarb is 26.0, BUN is 23, creatinine 0.98, blood sugar is118, calcium is 9.5. RADIOGRAPHS: EKG shows a normal sinus rhythm at 63 beats per minute with a left ventricular hypertrophy and a nonspecific ST abnormality. There is no significant change from previous. IMPRESSION/REPORT/PLAN 1. Preanesthesia medical exam. Patient does have a history of aortic regurgitation but no known history of coronary artery disease. She currently can perform at least 4 METs of activity. The patient was advised to take her atenolol the morning of surgery but was told to hold her lisinopril/hydrochlorot hiazide. In regards to sleep apnea, her sleep apnea score was 1 which puts her in the low risk category. She is not having any difficulty with her breathing. She is considered at increased risk for DVTbased on her age. Otherwise the patient was advised that she can continue with her aspirin. She is deemed medically optimized for this procedure. 2. Gout. We discussed that indomethacin can irritate the stomach and unless she is having severe gouty flare, I would probably stick with something like Tylenol or ibuprofen. Patient voiced understanding. Ready to learn. No apparent learning barriers were identified. Learning preferences include listening. Explained diagnosis and treatment plan. Patient/Child/Caregiver expressed understanding of the content. Mago Carroll M.D./dayanna Electronically Signed By: MAGO GOLDEN MD On: 08/27/2013 07:45 AM Modified by and Electronically Signed by: MAGO GOLDEN MD On: 08/27/2013 07:45 AM Source: [facility] Document Id: [id number] documented in this encounter Miscellaneous Notes Miscellaneous - Mago Hermosillo M.D. - 08/28/2013 7:12 PM CDT Normal Results Letter 28 August 2013 JUAN J DUENAS [address] [facility] [id number] Dear JUAN J DUENAS, Please review your pre-op labs below. Overall, things are acceptable. Your potassium was just a little low. I have included a list of high potassium foods to eat. Please follow up with us as we discussed during your visit or sooner if you have any concerns. If you have questions or concerns, please donot hesitate to call our office. Result Name Current Result Previous Result Normal Range Sodium Lvl (mM/L) 139.5 08/21/2013 136.5 04/26/2013 135.0 - 145.0 Potassium Lvl (mmol/L) (L) 3.4 08/21/2013 (L) 3.5 04/26/2013 3.6 - 4.8 Chloride (mmol/L) 104 08/21/2013 100 04/26/2013 98 - 107 CO2 (mmol/L) 26.0 08/21/2013 25.9 04/26/2013 23.0 - 29.0 AGAP (mmol/L) 13 08/21/2013 14 04/26/2013 10 - 20 Glucose Lvl (mg/dL) 119 08/21/2013 99 04/26/2013 70 - 139 Creatinine (mg/dL) 0.98 08/21/2013 0.94 04/26/2013 0.60 - 1.30 EGFR (MDRD) (mL/min/1.73m2) (L) 55 08/21/2013 (L) 58 04/26/2013 >=60 - EGFR (MDRD) (mL/min/1.73m2) >60 08/21/2013 >60 04/26/2013 >=60 - BUN (mg/dL) (H) 23 08/21/2013 (H) 22 04/26/2013 7 - 18 Calcium Lvl (mg/dL) 9.5 08/21/2013 10.0 04/26/2013 8.8 - 10.2 Hgb (g/dL) 12.2 08/21/2013 12.0 - 15.5 Hct (%) 36.6 08/21/2013 34.9 - 44.5 WBC (x10(9)/L) 7.3 08/21/2013 3.4 - 10.5 RBC (x10(12)/L) 4.14 08/21/2013 3.90 - 5.03 MCV (fL) 88.4 08/21/2013 82.0 - 98.0 RDW (%) 12.2 08/21/2013 11.9 - 15.5 Platelet (x10(9)/L) 310 08/21/2013 150 - 450 Sincerely, MAGO GOLDEN [address] [place] [id number] Electronic Signature Electronically Signed By: MAGO GOLDEN MD On: 28 August 2013 d This document has images extracted. Source: [facility] POWERCHART Document Id: [id number] Miscellaneous - Mago Hermosillo M.D. - 08/21/2013 2:47 PM CDT Ambulatory Patient Summary [address] [id number] Visit Information Name: JUAN J DUENAS [facility] Number: [id number] Current Date: 08/21/2013 14:47:20 Physicians Attending Provider: MAGO GOLDEN MD Primary Care Provider: MAGO GOLDEN MD JUAN J DUENAS has been given the following list [...] day as needed for rash to scalp bisacodyl (Dulcolax Laxative 5 mg oral delayed release tablet) 4 Tablet(s), Oral, once [facility] [address] [address] calcium-vitamin D (Calcium 600+D) 1 tab, Oral, [...] tablet) 1 Tablet(s), Oral, once a day polyethylene glycol 3350 with electrolytes (GoLYTELY oral powder for reconstitution) 240 Milliliter,Oral, every 10 minutes New Routed to [facility] [address] [place] [id number] Stop Taking the Following Medications: Medication list as of 08-21-13 14:47 Attention: If you have any medications at [...] Electronically Signed By: MAGO GOLDEN MD Signed On:21-AUG-2013 14:47:09 Your Allergies & Intolerances Substance Reaction Symptoms [...] Upcoming Appointments Date Time Location Reason Provider 08/28/2013 09:30 [facility] Scope Room blood in stool [facility] Scope Rm Attention: Contact your local Clinic if further appointment detail needed. Your Goals/Additional instructions: Source: [facility] POWERCHART Document Id: [id number] Miscellaneous - Mago Hermosillo M.D. - 08/21/2013 2:47 PM CDT Ambulatory Discharge Medication List [id number] [place], [place] [phone] Visit Information Name: JUAN J DUENAS [facility] Number: [id number] Visit Date: 08/21/2013 14:47:18 Attending Provider: MAGO GOLDEN MD Primary Care [...] day as needed for rash to scalp bisacodyl (Dulcolax Laxative 5 mg oral delayed release tablet) 4 Tablet(s), Oral, once New Routed [facility] [address] [address] calcium-vitamin D (Calcium 600+D) 1 tab, Oral, [...] tablet) 1 Tablet(s), Oral, once a day polyethylene glycol 3350 with electrolytes (GoLYTELY oral powder for reconstitution) 240 Milliliter,Oral, every 10 minutes New Routed to [address] [address] Stop Taking the Following Medications: Medication list as of 08-21-13 14:47 Attention: If you have any medications at [...] Electronically Signed By: MAGO GOLDEN MD Signed On:21-AUG-2013 14:47:09 Additional Information: Source: [facility] Document Id: [id number] Miscellaneous - Nidhi Cartwright, L.P.N. - 08/21/2013 2:24 PM CDT Ambulatory Vitals Height Weight Ambulatory Vitals Height Weight Entered On: 08/21/2013 14:25 CDT Performed On: 08/21/2013 14:24 CDT by NIDHI CARTWRIGHT LPN, RT Vitals/Ht/Wt Systolic Blood Pressure : 130 mmHg Diastolic Blood Pressure : 56 mmHg NIBP Mean : 81 mmHg BP Location : Left upper extremity Blood Pressure Cuff Size : Regular Height : 158 cm(Converted to: 5 ft 2 inch(es), 62 inch(es)) NIDHI CARTWRIGHT LPN, RT - 08/21/2013 14:24 CDT Source: [facility] POWERCHART Document Id: [id number] CDT!8 Miscellaneous - Nidhi Cartwright L.P.N. - 08/21/2013 2:23 PM CDT Obstructive Sleep Apnea Obstructive Sleep Apnea Entered On: 08/21/2013 14:24 CDT Performed On: 08/21/2013 14:23 CDT by NIDHI CARTWRIGHT LPN, RT INGRIS Screening Known Obstructive Sleep Apnea : No - NOT diagnosed with INGRIS NIDHI CARTWRIGHT LPN, RT - 08/21/2013 14:23 CDT INGRIS Assessment Do you have high blood pressure or have you been told to take medication for high blood pressure? : Yes Frequency of Snoring HTN : Never Frequency of Gasping, Choking, Snorting HTN : Never Total Number of Historical Features HTN : 0 Neck Circumference - INGRIS - HTN : 32/33 Total Sleep Apnea Clinical Score HTN Calc : 1 NIDHI CARTWRIGHT LPN, RT - 08/21/2013 14:23 CDT Source: [employer] Document Id: [id number] CDT!10 Miscellaneous - Nidhi Cartwright LKaiP.N. - 08/21/2013 2:16 PM CDT Adult Senior Ui Designer Intake/History Adult Senior Ui Designer Intake/History Entered On: 08/21/2013 14:21 CDT Performed On: 08/21/2013 14:16 CDT by NIDHI CARTWRIGHT LPN, RT Intake Chief Complaint : preop. colonoscopy August 28 in [place] Temperature Core : 36.8 DegC(Converted to: 98.2 DegF) Peripheral Pulse Rate : 70 /min Respiratory Rate : 14 /min Systolic Blood Pressure : 138 mmHg Diastolic Blood Pressure : 65 mmHg NIBP Mean : 89 mmHg BP Location : Left upper extremity Blood Pressure Cuff Size : Regular SpO2 : 98 % Oxygen Therapy : Room air Height : 158 cm(Converted to: 5 ft 2 inch(es), 62 inch(es)) Actual Weight : 58.8 kg(Converted to: 129 lb 10 oz) Weight Source : Standing scale Dosing Weight Clinic : 58.8 kg Clinic BSA : 1.61 Body Mass Index : 23.55 kg/m2 HANSASKYLER SANTIAGOLAKESHIA Hammond LPN, RT - 08/21/2013 14:16 CDT General Info Information Given By : Patient Preferred Communication Mode : Verbal Languages : Georgian HANSANIDHI JARON, RT - 08/21/2013 14:16 CDT Subjective Pain Symptoms : No NIDHI CARTWRIGHT JARON, RT - 08/21/2013 14:16 CDT Dependent Habits Tobacco Use/Currently Using : No Exposure to Tobacco Smoke : Care provider denies smoking in home Smoking Status : Never smoker HANSA NIDHI Hammond LPN, RT - 08/21/2013 14:16 CDT Tobacco Use Grid Last Use : never NIDHI CARTWRIGHT LPN, RT - 08/21/2013 14:16 CDT Caffeine Use Grid Caffeine Use : Current Type : Coffee Frequency : Daily Amount : 2 HANSASKYLERLAKESHIA Hammond LPN, RT - 08/21/2013 14:16 CDT Recreational Drug Use Grid Drug Use : None HANSASKYLERLAKESHIA Hammond LPN, RT - 08/21/2013 14:16 CDT [facility] Document Id: [id number] CDT!41 documented in this encounter Plan of Treatment Not on filedocumented as of this encounter Procedures Procedure Name Priority Date/Time Associated Diagnosis Comme nts CBC WITHOUT Routine 08/21/2013 2:52 PM Results f or this DIFFERENTIAL, B CDT procedure ar e in the results section. BASIC METABOLIC Routine 08/21/2013 2:52 PM Result s for this PANEL, S/P CDT procedure are i n the results section. documented in this encounter Results CBC without Differential (08/21/2013 2:52 PM CDT) P athologist Signature Leukocytes 7.3 3.4 - 10.5 POWERCHART X109L Erythrocytes 4.14 3.90 - 5.03 POWERCHART [id number] Hemoglobin 12.2 12.0 - 15.5 POWERCHART GDL Hematocrit 36.6 34.9 - 44.5 POWERCHART MCV 88.4 82.0 - 98.0 POWERCHART FL HX RDW 12.2 11.9 - 15.5 POWERCHART Platelet Count 310 150 - 450 POWERCHART X109L Specimen (Source) Anatomical Collection Method Collection Time Re ceived Time Location / / Volume Laterality Blood 08/21/2013 2:52 PM CDT Mago Gonzales M.D. LAB BLOOD ADD-ON Performing Organization Address City/State/ZIP Code Phon e Number POWERCHART (ABNORMAL) BMP (Basic Metabolic Panel) (08/21/2013 2:52 PM CDT) P athologist Signature Anion Gap 13 10 - 20 POWERCHART MMOLL BUN (Blood Urea 23 (H) 7 - 18 POWERCHART Nitrogen), S MGDL Chloride, S 104 98 - 107 POWERCHART MMOLL CO2 Total 26.0 23.0 - POWERCHART 29.0 MMOLL Creatinine 0.98 0.60 - POWERCHART 1.30 MGDL Glucose 119 70 - 139 POWERCHART MGDL Calcium, Total, 9.5 8.8 - 10.2 POWERCHART S MGDL Sodium, S 139.5 135.0 - POWERCHART 145.0 MML Potassium, S 3.4 (L) 3.6 - 4.8 POWERCHART MMOLL HXeGFR (MDRD) 55 (L) >=60 POWERCHART [id number] eGFR >60 >=60 POWERCHART Black/ [id number] [place] Specimen (Source) Anatomical Collection Method Collection Time Re ceived Time Location / / Volume Laterality Blood 08/21/2013 2:52 PM CDT Mago Gonzales M.D. LAB BLOOD ADD-ON Performing Organization Address City/State/ZIP Code Phon e Number POWERCHART documented in this encounter Visit Diagnoses Not on filedocumented in this encounter
--- OUTSIDE RECORDS SUMMARY | 2022-01-04 09:40 | XMS_ITS | Encounter Summary ---
:1935 Author Organization [facility] Address [address] [place] [address] Care Team Providers Name Role Phone Unavailable Primary Care Provider Unavailable Encounter Details Date Type Department Care Team Description 12/16/2013 Hospital Encounter HX [facility] [place] Aleisha Melgoza M.D. [address] [place] [phone] (Wo rk) Social History Tobacco Use Types Packs/Day Years Used Date Smoking Tobacco: Never Assessed Sex Assigned at Date Recorded Not on file documented as of this encounter Medications at Time of Discharge Medication Sig Dispensed Refills Start Date End Date CALCIUM CARB/VIT Take by mouth daily. 0 1 01/21/2019 D3/MINERALS (CALCIUM-VITAMIN D ORAL) [id number] Take 1 capsule by 0 011 05/30/2018 oil 1,400 mg/5 mL liquid mouth daily. documented as of this encounter Miscellaneous Notes Miscellaneous - Abhinav Russo R.N. - 04/03/2014 2:21 PM CST Indomethacin Document Contains Addenda Addendum by ABHINAV RUSSO RN on 03 April 2014 16:16:15 GRAPHIC DESIGN MANAGER noted Addendum by ALEISHA GOLDEN MD on 03 April 2014 16:11:32 GRAPHIC DESIGN MANAGER From: ALEISHA GOLDEN MD Sent: 04/03/2014 16:11:31 GRAPHIC DESIGN MANAGER Subject: RE:Indomethacin Approved Order:indomethacin (Indocin 50 mg oral capsule) 1 cap(s) PO 3xDay Take with food Qty: 50 cap(s) Refills: 0 Substitutions Allowed PRN Gout pain Route To Pharmacy - [facility] Signed by ALEISHA GOLDEN MD 04/03/2014 16:11:27 From: ABHINAV RUSSO RN To: ALEISHA GOLDEN MD; ABHINAV RUSSO RN; Sent: 04/03/2014 14:21:31 GRAPHIC DESIGN MANAGER Subject: Indomethacin On hold pending signature Order:indomethacin (Indocin 50 mg oral capsule) 1 cap(s) PO 3xDay Take with food Qty: 50 cap(s) Refills: 0 Substitutions Allowed PRN Gout pain Route To Pharmacy - [facility] Refill request from [facility]. Pt has script for gout in may and filled it once. She was seen in September and advised to take Indomethacin as needed but appears she didn't fill script again. Spoke to pt today, she reports she has had gout in both feet for one year and sometimes it gets better and it is better when she takes the Indomethacin. Proposed refill Source: [facility] POWERCHART Document Id: [id number] Electronically signed by Conversion, [facility] Supervisor Backfilling [id number] at 08/02/2016 1:53 AM CDT documented in this encounter Plan of Treatment Not on filedocumented as of this encounter Visit Diagnoses Not on filedocumented in this encounter
--- OUTSIDE RECORDS SUMMARY | 2022-01-04 09:40 | XMS_ITS | Encounter Summary ---
:1935 Author Organization [facility] Address [address] [place] [address] Care Team Providers Name Role Phone Unavailable Primary Care Provider Unavailable Encounter Details Date Type Department Care Team Description 12/07/2012 Hospital Encounter HX [facility] [place] Aleisha May M.D. [id number] [phone] (Wo rk) Social History Tobacco Use Types Packs/Day Years Used Date Smoking Tobacco: Never Assessed Sex Assigned at Date Recorded Not on file documented as of this encounter Last Filed Vital Signs Vital Sign Reading Time Taken Comments Blood Pressure 124/65 12/07/2012 7:03 AM CDT Pulse 64 12/07/2012 7:03 AM CDT Temperature - - Respiratory Rate - - Oxygen Saturation - - Inhaled Oxygen Concentration - - Weight 60.4 kg (133 lb 2.5 oz) 12/07/2012 7:03 AM CDT Height - - Body Mass Index 23.01 10/01/2012 7:49 AM CDT documented in this encounter Medications at Time of Discharge Medication Sig Dispensed Refills Start Date End Date CALCIUM CARB/VIT Take by mouth daily. 0 1 01/21/2019 D3/MINERALS (CALCIUM-VITAMIN D ORAL) [id number] Take 1 capsule by 0 011 05/30/2018 oil 1,400 mg/5 mL liquid mouth daily. documented as of this encounter Progress Notes Aleisha Hermosillo M.D. - 12/07/2012 6:58 AM CDT [id number] CHIEF COMPLAINT/REASON FOR VISIT Gout. HISTORY OF PRESENT ILLNESS Janeth is 77 old female who reports 1 episode of gout in her right foot approximately 1 year ago and then she recently had an attack a couple weeks ago in the same spot of the right midfoot and now more down into the right fourth toe. She was evaluated in the clinic and prescribed Methylprednisolone. She states that that really didn't seem to help. She had gotten some pills from Dr. Solares with her first attack and she thought that they made her sick, but she does not think that she ate withthem. She found those pills and tried them with food and she states that those are helping. She wonders how long she should take this other medicine and what else can be done about gout. She brings in the bottles and the first medicine that she got last year was Indomethacin and then the medicine she got recently was Methylprednisolone. Patient otherwise requests a flu shot. MEDICATIONS Reconciled. Patient will continue with the Indomethacin 50 mg by mouth 3 times a day as-needed for gout. ALLERGIES No known drug allergies. REVIEW OF SYSTEMS As per HPI. VITAL SIGNS Temperature: 36.2-degrees Centigrade. Pulse: 64 beats per minute. Blood pressure: 124/65. Oxygen saturation: 98% on room air. Weight: 60.4 kg. PHYSICAL EXAMINATION IN GENERAL: Patient is alert and oriented, in no acute distress. EXTREMITIES: Patient's right midfoot is mildly tender to palpation. There is no significant erythemaremaining. Her fourth toe, however, is still erythematous and a little bit swollen and it is also tender to palpation. IMPRESSION/REPORT/PLAN 1. Gout. We discussed that she can take the Indomethacin as needed with her gout pain or if she has a gouty attack in the future she can also use this. We also discussed that if she is having frequent painful gouty attacks we can place her on preventive type medication. Patient voices understanding. We also discussed that the Indomethacin can upset stomach and it should be taken with food and we need to monitor her kidney function as it can be affected by these NSAIDs. Patient voices understanding. 2. Patient got her flu vaccine. PATIENT EDU #1 Patient Education Ready to learn No apparent learning barriers were identified Learning preferences include listening Explained diagnosis and treatment plan Patient/Child/Caregiver expressed understanding of the content. Aleisha Carroll M.D./keith Electronically Signed By: ALEISHA GOLDEN MD On: 12/14/2012 02:02 PM Source: [facility] MHSDOLBEYNONRADSYS Document Id: [id number] documented in this encounter Miscellaneous Notes Miscellaneous - Aleisha Hermosillo M.D. - 12/07/2012 7:24 AM CDT Ambulatory Patient Summary [address] [address] Visit Information Name: JANETH RANGEL [facility] Number: [id number] Current Date: 12/07/2012 07:24:34 Physicians Attending Provider: ALEISHA GOLDEN MD Primary Care Provider: ALEISHA GOLDEN MD Your Medications Here is a list of your medications. It is important to take your medications as directed. Use a pillbox or chart to help remind you to take your medications. Please let your doctor or nurse know if you have problems taking your medications. Medication/Strength Dose Route Frequency Indications/Special Instructions/Comments/Notes indomethacin (indomethacin 50 mg oral capsule) 50 [...] No Appointments found Your Goals/Additional instructions: Source: [facility] POWERCHART Document Id: [id number] Miscellaneous - Aleisha Hermosillo M.D. - 12/07/2012 7:24 AM CDT Ambulatory Depart Summary [address] [address] Visit Information Name: JANETH RANGEL [facility] Number: [id number] Visit Date: 12/07/2012 07:24:33 Attending Provider: ALEISHA GOLDEN MD Primary Care Provider: ALEISHA GOLDEN MD JANETH ARNGELE has been given the following list of medications: Your Medications It is important to take your medications as directed. Use a pill box or chart to help remind you to take your medications. Please let your doctor or nurse know if you have problems taking your medications. Medication/Strength Dose Route Frequency Indications/Special Instructions/Comments/Notes indomethacin (indomethacin 50 mg oral capsule) 50 [...] your provider for clarification. Additional Information: Source: [facility] POWERCHART Document Id: [id number] Miscellaneous - Sheryl Cartwright L.P.N. - 12/07/2012 7:03 AM CDT Adult Wheel Polisher Intake/History Adult Wheel Polisher Intake/History Entered On: 12/07/2012 7:08 CDT Performed On: 12/07/2012 7:03 CDT by SHERYL CARTWRIGHT LPN, RT Intake Chief Complaint : concerned about gout in right foot questions about medication. Temperature Core : 36.2 DegC(Converted to: 97.2 DegF) (LOW) Peripheral Pulse Rate : 64 /min Systolic Blood Pressure : 124 mmHg Diastolic Blood Pressure : 65 mmHg NIBP Mean : 85 mmHg BP Location : Left upper extremity Blood Pressure Cuff Size : Regular SpO2 : 98 % Oxygen Therapy : Room air Actual Weight : 60.4 kg(Converted to: 133 lb 3 oz) Weight Source : Standing scale Dosing Weight Clinic : 60.4 kg SHERYL CARTWRIGHT LPN, RT - 12/07/2012 7:03 CDT General Info Information Given By : Patient Preferred Communication Mode : Verbal Languages : Jamaican SHERYL CARTWRIGHT LPN, RT - 12/07/2012 7:03 CDT Subjective Pain Symptoms : Yes SHERYL CARTWRIGHT LPN, RT - 12/07/2012 7:03 CDT Pain Pain Assessment Grid Pain 1 Location : Foot Laterality : Right SHERYL CARTWRIGHT LPN, RT - 12/07/2012 7:03 CDT Dependent Habits Tobacco Use/Currently Using : No Exposure to Tobacco Smoke : Care provider denies smoking in home Smoking Status : Never smoker SHERYL CARTWRIGHT LPN, RT - 12/07/2012 7:03 CDT Tobacco Use Grid Last Use : never SHERYL CARTWRIGHT LPN, RT - 12/07/2012 7:03 CDT Caffeine Use Grid Caffeine Use : Current Type : Coffee Frequency : Daily Amount : 2 SHERYL CARTWRIGHT LPN, RT - 12/07/2012 7:03 CDT Recreational Drug Use Grid Drug Use : None SHERYL CARTWRIGHT LPN, RT - 12/07/2012 7:03 CDT Source: [facility] [employer] Document Id: [id number] documented in this encounter Plan of Treatment Not on filedocumented as of this encounter Visit Diagnoses Not on filedocumented in this encounter
--- OUTSIDE RECORDS SUMMARY | 2022-01-04 09:40 | XMS_ITS | Encounter Summary ---
:1935 Author Organization [facility] Address [address] [place] [address] Care Team Providers Name Role Phone Unavailable Primary Care Provider Unavailable Encounter Details Date Type Department Care Team Description 12/06/2011 Hospital Encounter HX [facility] [place] Trinidad Corrales, ZIYAD, C.N.P., D. N.P. [address] [place] [address] (Wo rk) Social History Tobacco Use Types Packs/Day Years Used Date Smoking Tobacco: Never Assessed Sex Assigned at Date Recorded Not on file documented as of this encounter Last Filed Vital Signs Vital Sign Reading Time Taken Comments Blood Pressure 114/50 12/06/2011 10:03 AM CDT Pulse 76 12/06/2011 10:03 AM CDT Temperature - - Respiratory Rate 16 12/06/2011 10:03 AM CDT Oxygen Saturation - - Inhaled Oxygen Concentration - - Weight 60.5 kg (133 lb 6.1 oz) 12/06/2011 10:03 AM CDT Height 162.5 cm (5' 3.98) 12/06/2011 10:03 AM CDT Body Mass Index 22.91 12/06/2011 10:03 AM CDT documented in this encounter Medications at Time of Discharge Medication Sig Dispensed Refills Start Date End Date CALCIUM CARB/VIT Take by mouth daily. 0 1 01/21/2019 D3/MINERALS (CALCIUM-VITAMIN D ORAL) [id number] Take 1 capsule by 0 011 05/30/2018 oil 1,400 mg/5 mL liquid mouth daily. documented as of this encounter Progress Notes Trinidad Corrales D.N.P., C.N.P. - 12/06/2011 10:00 AM CDT [id number] CHIEF COMPLAINT/REASON FOR VISIT Redness to the left foot. HISTORY OF PRESENT ILLNESS The patient is a 76-year-old female who presents to the clinic today with a chief complaint of some redness that she noted for approximately the past 3-4 days duration to the left lateral aspect of herfoot. She indicates that she has no noted trauma that she is aware of and indicates that she has been up on her feet more than usual. She thinks that she may have a history of gout but more so affecting the distal right third phalanx, just the very distal portion in the past, but has not had any othergouty episode that she is aware of since. She reports that the pain is just more of a gradual and constant 6/10 but reports that it is really not that uncomfortable for her. She reports that she is not having fevers, chills, nausea, vomiting, shortness of breath, or difficulty breathing and reports that she has not been bitten by any insect that she is aware of. She denies any known exposure to any kind of environmental chemicals or cleaning products. She does report that she was in [place] and waswearing two different pairs of shoes and was walking around frequently. She indicates that to her knowledge she did not develop any pressure sores from her shoes. She indicates that she is not taking anything [id number] to help with the pain and otherwise denies having any other further concernsor issues at this time. PAST MEDICAL/SURGICAL/FAMILY HISTORY Past medical, surgical, and family history were reviewed. Please see chart. CURRENT MEDICATIONS Reviewed. Please see chart. ALLERGIES Reviewed. Please see chart. PHYSICAL EXAMINATION GENERAL: The patient is an alert, well-nourished 76-year-old female who appears to be in no acute distress. HEAD: Normocephalic, atraumatic. EXTREMITIES: Pedal pulses are noted be +3 on a scale from 0 to 4. Capillary refill to bilateral lower extremities is less than three seconds. I appreciate some left lateral metatarsal erythema that is present, specifically over the fifth and fourth metatarsals mid-area. Erythema significantly blancheswith palpation. It is noted be warm to touch. There is some very mild generalized edema to this areathough is not noted to be pitting. Erythema significantly to this area is noted be approximately 3 cm in diameter as erythema then becomes more diffuse spreading to the lateral malleolus and also up the metatarsals. Erythema again is warm to the touch and blanches with palpation. Overall erythema doesnot go circumferentially around the ankle or around the foot and stops about at the first metatarsallocation. Toes do not appear to be affected. The malleolus does not appear to be affected. The patient is noted to have full flexion and extension with no difficulty. I do not appreciate any openings to the skin, maceration or denudement to the area. No induration is noted either. IMPRESSION/REPORT/PLAN Erythema of the left foot. PLAN 1. Discussed these findings with the patient as I discussed the different differential diagnoses including cellulitis vs. gout. Presently at this time I indicated she can take ibuprofen [id number] as directed on package with food in her stomach as this has been primary treatment for gouty attacks. In addition though considering worse case scenario, I did opt to start her on Keflex 500 mg tablets to take one capsule by mouth four times a day for 10 days, quantity sufficient with no refills. The patient was given information regarding gout and cellulitis from the [facility] site asI indicated that this is not very characteristic of gout to be dislocation of foot as gout generally includes uric acid buildup in a joint and currently this is the lateral aspect of the metatarsal area. I indicated though if the erythema worsened or continued follow-up would be warranted as I also reiterated that an elevation in white blood cells could be seen with either gout and/or infection and also elevation in uric acid levels does not directly pinpoint this to be a gouty flare-up. I did use apen and outline the area of erythema indicating if the erythema continues to worsen again follow-up would be warranted. The patient felt very comfortable with this treatment plan as we also encouraged elevation and warmth for vasodilation vs. cool compresses causing vasoconstriction. The patient stated understanding this plan as she otherwise denied having any other further questions or concerns. 2. The patient was also advised she is due for her routine colonoscopy. Last colonoscopy completed in 2006 showed polyps and was advised to repeat in five years. Again, the patient was instructed of this and advised to plan on scheduling her colonoscopy with her primary care provider. Patient Education Ready to learn No apparent learning barriers were identified Learning preferences include listening Explained diagnosis and treatment plan Patient/Child/Caregiver expressed understanding of the content Trinidad Corrales D.N.P./Maurice/kristy Electronically Signed By: TRINIDAD CORRALES DNP, FNP On: 12/06/2011 01:38 PM Source: [facility] MHSDOLBEYNONRADSYS Document Id: [id number] documented in this encounter Miscellaneous Notes Miscellaneous - Trinidad Corrales D.N.P., C.N.P. - 12/06/2011 12:09 PM CDT Ambulatory Patient Summary [address] [address] Visit Information Name: JANETH RANGEL Current Date: 12/06/2011 12:09:32 Physicians Attending Provider: TRINIDAD CORRALES DNP, FNP Primary Care Provider: MARISOL MCFADDEN MD Your Medications Here is a list of your medications. It is important to take your medications as directed. Use a pillbox or chart to help remind you to take your medications. Please let your doctor or nurse know if you have problems taking your medications. Medication/Strength Dose Route Frequency Indications/Special Instructions/Comments lisinopril-hydrochlorothiazide (lisinopril-hydrochlorothiazide 20 mg-25 mg oral tablet) 1 tab(s) Oral once a day High Blood Pressure / (Zestoretic) atenolol (atenolol 50 mg oral tablet) 50 mg Oral once a day High Blood Pressure calcium-vitamin D (Calcium 600+D) 1 tab Oral [...] No Appointments found Your Goals/Additional instructions: Source: [facility] POWERCHART Document Id: [id number] Miscellaneous - Trinidad Corrales D.N.P., C.N.P. - 12/06/2011 12:09 PM CDT Ambulatory Depart Summary [address] [address] Visit Information Name: JANETH RANGEL Visit Date: 12/06/2011 12:09:31 Attending Provider: TRINIDAD CORRALES DNP, TUBE DISPATCHER Primary Care Provider: MARISOL MCFADDEN MD JANETH RANGEL has been given the following list of medications: Your Medications It is important to take your medications as directed. Use a pill box or chart to help remind you to take your medications. Please let your doctor or nurse know if you have problems taking your medications. Medication/Strength Dose Route Frequency Indications/Special Instructions/Comments lisinopril-hydrochlorothiazide (lisinopril-hydrochlorothiazide 20 mg-25 mg oral tablet) 1 tab(s) Oral once a day High Blood Pressure / (Zestoretic) atenolol (atenolol 50 mg oral tablet) 50 mg Oral once a day High Blood Pressure calcium-vitamin D (Calcium 600+D) 1 tab Oral once a day aspirin (aspirin) 81 mg Oral once a day omega-3 polyunsaturated fatty acids (Fish Oil oral capsule) 1 cap(s) Oral once a day Attention: If you have any medications at home that are not on this list, DO NOT take them until youcontact your provider for clarification. Additional Information: Source: [facility] [employer] Document Id: [id number] Miscellaneous - Rubens Duque L.P.N. - 12/06/2011 10:15 AM CDT PHQ-9 PHQ-9 Entered On: 12/06/2011 17:39 CDT Performed On: 12/06/2011 10:15 CDT by RUBENS DUQUE LPN PHQ-9 Little interest or pleasure in doing things : Not at all Feeling down, depressed, or hopeless : Not at all Trouble falling or staying asleep, or sleeping too much : Not at all Feeling tired or having little energy : Not at all Poor appetite or overeating : Not at all Feeling bad about yourself or that you are a failure : Not at all Trouble concentrating on things : Not at all Moving or speaking slowly; restless or fidgety : Not at all Thoughts that you would be better off /hurting self : Not at all PHQ-9 Calculated Score : 0 Problems make work, home, or dealing with others : Not difficult at all RUBENS DUQUE LPN - 12/06/2011 17:39 CDT Source: [facility] [employer] Document Id: [id number] Melicellpuja - Rubens Duque L.PKaiN. - 12/06/2011 10:03 AM CDT Adult Attic Blower Intake/History Adult Attic Blower Intake/History Entered On: 12/06/2011 10:08 CDT Performed On: 12/06/2011 10:03 CDT by RUBENS DUQUE LPN Intake Chief Complaint : Left foot swollen x3-4 days, red, painful Temperature Core : 36.1C(Converted to: 97.0DegF) (LOW) Peripheral Pulse Rate : 76/min Respiratory Rate : 16/min Heart Rhythm : Regular Systolic Blood Pressure : 114mmHg Diastolic Blood Pressure : 50mmHg (LOW) NIBP Mean : 71mmHg BP Location : Right upper extremity Blood Pressure Cuff Size : Regular Height : 162.5cm(Converted to: 5ft 4inch(es), 63.98inch(es)) Actual Weight : 60.5kg(Converted to: 133lb 6oz) Weight Source : Standing scale Dosing Weight Clinic : 60.50kg Clinic BSA : 1.65 Body Mass Index : 22.91kg/m2 RUBENS DUQUE LPN - 12/06/2011 10:03 CDT Subjective Pain Symptoms : Yes RUBENS DUQUE LPN 12/06/2011 10:03 CDT Pain Pain Assessment Grid Pain 1 Location : Foot Laterality : Left Intensity : 6 Time Pattern : Constant Onset : Gradual Quality : Aching, Sharp Pain Radiation : No Aggravating Factors : None Alleviating Factors : None Associated Symptoms : None Interventions : Medications (Comment: some relief [RUBENS DUQUE LPN - 12/06/2011 10:03 CDT] ) RUBENS DUQUE LPN 12/06/2011 10:03 CDT Dependent Habits Tobacco Use/Currently Using : No Tobacco Use/Last 12 months : No Tobacco Use/Advised to Quit : No Exposure to Tobacco Smoke : Care provider denies smoking in home Smoking Status : Never smoker RUBENS DUQUE LPN 12/06/2011 10:03 CDT Tobacco Use Grid Last Use : never RUBENS DUQUE LPN 12/06/2011 10:03 CDT Alcohol Use : Yes RUBENS DUQUE LPN 12/06/2011 10:03 CDT Caffeine Use Grid Caffeine Use : Current Type : Coffee Frequency : Daily Amount : 2 RUBENS DUQUE LPN 12/06/2011 10:03 CDT Recreational Drug Use Grid Drug Use : None RUBENS DUQUE LPN 12/06/2011 10:03 CDT Allergy Allergies (Active) NKA Estimated Onset Date: Unspecified ; Created By: MAY DAVIDSON LPN; Reaction Status: Active ;Category: Drug ; Substance: NKA ; Type: Allergy ; Updated By: MAY DAVIDSON LPN; Reviewed Date: 12/06/2011 8:34 CDT [facility] Document Id: [id number] Miscellaneous - Rubens Duque L.PKaiNKai - 12/06/2011 10:03 AM CDT Health Assessment Health Assessment Entered On: 12/06/2011 10:08 CDT Performed On: 12/06/2011 10:03 CDT by RUBENS DUQUE LPN Health Assessment Complete Health Assessment Complete or Modified : Annual Health Assessment Annual Health Assessment Completed : Yes RUBENS DUQUE LPN - 12/06/2011 10:03 CDT Nutrition Nutrition Risk Factors by History Adult : None RUBENS DUQUE LPN - 12/06/2011 10:03 CDT Functional Current Daily Living Assistance : None RUBENS DUQUE LPN - 12/06/2011 10:03 CDT Dependent Habits Tobacco Use/Currently Using : No Exposure to Tobacco Smoke : Care provider denies smoking in home Smoking Status : Never smoker RUBENS DUQUE LPN - 12/06/2011 10:03 CDT Tobacco Use Grid Last Use : never RUBENS DUQUE LPN - 12/06/2011 10:03 CDT Caffeine Use Grid Caffeine Use : Current Type : Coffee Frequency : Daily Amount : 2 RUBENS DUQUE LPN - 12/06/2011 10:03 CDT Recreational Drug Use Grid Drug Use : None RUBENS DUQUE LPN - 12/06/2011 10:03 CDT Psychosocial Domestic Abuse Concerns : None RUBENS DUQUE LPN - 12/06/2011 10:03 CDT Advance Directive Advanced Directives : No Advance Directive Additional Information : No RUBENS DUQUE LPN - 12/06/2011 10:03 CDT Educ Needs Learning Style Preference Adult Grid Patient : None Family : None RUBENS DUQUE LPN - 12/06/2011 10:03 CDT [facility] Document Id: [id number] documented in this encounter Plan of Treatment Not on filedocumented as of this encounter Visit Diagnoses Not on filedocumented in this encounter
--- OUTSIDE RECORDS SUMMARY | 2022-01-04 09:40 | XMS_ITS | Encounter Summary ---
:[address] [facility] Address [address] [place] [address] Care Team Providers Name Role Phone Unavailable Primary Care Provider Unavailable Encounter Details Date Type Department Care Team Description 08/11/2014 Hospital Encounter HX [facility] Aleisha coyle M.D. [id number] [phone] (Wo rk) Social History Tobacco [...] 0 1 01/21/2019 D3/MINERALS (CALCIUM-VITAMIN D ORAL) [id number] Take 1 capsule by 0 011 05/30/2018 oil 1,400 mg/5 mL liquid mouth daily. 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 However, the narrative phrase printed from the coding software may appear abbreviated, or result in slightly different terminology. Coded By: THERESA RODAS Date Saved: 08/26/2014 02:38 pm Source: [facility] Document Id: [id number] documented in this encounter Plan of Treatment Not on filedocumented as of this encounter Visit Diagnoses Not on filedocumented in this encounter
--- OUTSIDE RECORDS SUMMARY | 2022-01-04 09:40 | XMS_ITS | Encounter Summary ---
:1935 Author Organization [facility] Address [address] [place] [address] Care Team Providers Name Role Phone Unavailable Primary Care Provider Unavailable Encounter Details Date Type Department Care Team Description 09/20/2012 Hospital Encounter HX [facility] Aleisha coyle M.D. [id number] [phone] (Wo rk) Social History Tobacco Use Types Packs/Day Years Used Date Smoking Tobacco: Never Assessed Sex Assigned at Date Recorded Not on file documented as of this encounter Last Filed Vital Signs Vital Sign Reading Time Taken Comments Blood Pressure 160/50 09/20/2012 10:00 AM CDT Pulse 66 09/20/2012 10:00 AM CDT Temperature - - Respiratory Rate 16 09/20/2012 10:00 AM CDT Oxygen Saturation - - Inhaled Oxygen Concentration - - Weight 62.2 kg (137 lb 2 oz) 09/20/2012 10:00 AM CDT Height 162.5 cm (5' 3.98) 09/20/2012 10:00 AM CDT Body Mass Index 23.56 09/20/2012 10:00 AM CDT documented in this encounter Medications at Time of Discharge Medication Sig Dispensed Refills Start Date End Date CALCIUM CARB/VIT Take by mouth daily. 0 1 01/21/2019 D3/MINERALS (CALCIUM-VITAMIN D ORAL) [id number]-[id number] Take 1 capsule by 0 011 05/30/2018 oil 1,400 mg/5 mL liquid mouth daily. documented as of this encounter Progress Notes Aleisha Hermosillo M.D. - 09/20/2012 9:52 AM CDT [id number] CHIEF COMPLAINT/REASON FOR VISIT Wood tick bite. HISTORY OF PRESENT ILLNESS Janeth is 77-year-old female who states [place] Then the following morning she found a wood tick on her left posterior upper arm. Her daughter removed it with tweezers and then rubbed alcohol on the area. Since then it has become red and swollen and ititches a little bit but there is no pain. She did bring the wood tick along. She is wondering if perhaps part of the head is still embedded and if she needs to do anything else. CURRENT MEDICATIONS Her medications reconciled. No changes. ALLERGIES No known drug allergies. REVIEW OF SYSTEMS As per HPI. Patient denies any fevers, chills, night sweats flu-like symptoms or joint aches or pains. VITAL SIGNS Temperature: 36.2-degrees Centigrade. Respiratory rate: 16 breaths per minute. Blood pressure: 160/50. O2 SAT's: 98% on room air. Height: 162.5 cm. Weight: 62.2 kg. BMI: : 23.5. PHYSICAL EXAMINATION IN GENERAL: Patient is alert and oriented, in no acute distress. SKIN: There is a indurated, erythematous lesion to the back of the patient's left upper arm which is1.5 cm x 1.5 cm. It has a central bite leon but I do not see any definite tick parts remaining. There is no rash consistent with Erythema migrans. On identification of the wood tick it does appear to be of the Ixodes species which does carry Lyme disease. IMPRESSION/REPORT/PLAN 1. Tick bite. We discussed that this is certainly a black legged tick which carries Lyme disease and we also discussed the risk factors that increase dharmesh it. We stated that typically it needs to be attached for at least or up to 72 hours but at least 36 to transmit the infection. The tick also should show evidence of engorgement. Since she got to the [place] on a Monday and did not find the tick until Monday morning it was certainly attached for less than 24-hours and we have it present and it is not engorged. These things make it highly unlikely that she will develop Lyme disease. I did however advise her to monitor the bite kunz for the next 30 days to ensure that she does not develop a target lesion. Patient was given information on Lyme disease. She will let us know if she develops a target rash. PATIENT EDU #1 Patient Education Ready to learn No apparent learning barriers were identified Learning preferences include listening Explained diagnosis and treatment plan Patient/Child/Caregiver expressed understanding of the content. Aleisha Carroll M.D./keith Electronically Signed By: ALEISHA GOLDEN MD On: 09/28/2012 11:32 AM Modified by and Electronically Signed by: ALEISHA GOLDEN MD On: 09/28/2012 11:32 AM Source: [facility] MHSDOLBEYNONRADSYS Document Id: [id number] documented in this encounter Miscellaneous Notes Miscellaneous - Aleisha Hermosillo M.D. - 09/20/2012 3:38 PM CDT Ambulatory Patient Summary [address] [address] Visit Information Name: JANETH DUENAS [facility] Number: [id number] Current Date: 09/20/2012 15:38:12 Physicians Attending Provider: ALEISHA GOLDEN MD Primary Care Provider: MARISOL MCFADDEN MD Your Medications Here is a list of your medications. It is important to take your medications as directed. Use a pillbox or chart to help remind you to take your medications. Please let your doctor or nurse know if you have problems taking your medications. Medication/Strength Dose Route Frequency Indications/Special Instructions/Comments/Notes indomethacin (Indocin 50 mg oral capsule) 50 mg Oral three times a day as needed for Gout pain Take with food atenolol (atenolol 50 mg oral tablet) 50 [...] No Appointments found Your Goals/Additional instructions: Source: [facility] [employer] Document Id: [id number] Miscellaneous - Aleisha Hermosillo M.D. - 09/20/2012 3:38 PM CDT Ambulatory Depart Summary [address] [address] Visit Information Name: JANETH DUENAS [facility] Number: [id number] Visit Date: 09/20/2012 15:38:11 Attending Provider: ALEISHA GOLDEN MD Primary Care Provider: MARISOL MCFADDEN MD JANETH DUENAS has been given the following list of medications: Your Medications It is important to take your medications as directed. Use a pill box or chart to help remind you to take your medications. Please let your doctor or nurse know if you have problems taking your medications. Medication/Strength Dose Route Frequency Indications/Special Instructions/Comments/Notes indomethacin (Indocin 50 mg oral capsule) 50 mg Oral three times a day as needed for Gout pain Take with food atenolol (atenolol 50 mg oral tablet) 50 [...] your provider for clarification. Additional Information: Source: [facility] POWERCHART Document Id: [id number] Miscellaneous - Rubens Duque LKaiP.N. - 09/20/2012 10:00 AM CDT Adult Graduate Teaching Assistant Intake/History Adult Graduate Teaching Assistant Intake/History Entered On: 09/20/2012 10:05 CDT Performed On: 09/20/2012 10:00 CDT by RUBENS DUQUE LPN Intake Chief Complaint : Wood tick bite left upper arm, red, wondering if the head is still in there, Monday Temperature Core : 36.2 DegC(Converted to: 97.2 DegF) (LOW) Peripheral Pulse Rate : 66 /min Respiratory Rate : 16 /min Heart Rhythm : Regular Systolic Blood Pressure : 160 mmHg (HI) Diastolic Blood Pressure : 50 mmHg (LOW) NIBP Mean : 87 mmHg BP Location : Right upper extremity Blood Pressure Cuff Size : Regular SpO2 : 98 % Oxygen Therapy : Room air Height : 162.5 cm(Converted to: 5 ft 4 inch(es), 63.98 inch(es)) Actual Weight : 62.2 kg(Converted to: 137 lb 2 oz) Weight Source : Standing scale Dosing Weight Clinic : 62.2 kg Clinic BSA : 1.68 Body Mass Index : 23.56 kg/m2 RUBENS DUQUE LPN - 09/20/2012 10:00 CDT General Info Information Given By : Patient Languages : [place] RUBENS DUQUE LPN - 09/20/2012 10:00 CDT Subjective Pain Symptoms : No RUBENS DUQUE LPN - 09/20/2012 10:00 CDT Dependent Habits Tobacco Use/Currently Using : No Tobacco Use/Last 12 months : No Tobacco Use/Advised to Quit : No Exposure to Tobacco Smoke : Care provider denies smoking in home Smoking Status : Never smoker RUBENS DUQUE LPN - 09/20/2012 10:00 CDT Tobacco Use Grid Last Use : never RUBENS DUQUE CLOUD SOLUTIONS ARCHITECT - 09/20/2012 10:00 CDT Alcohol Use : Yes RUBENS DUQUE CLOUD SOLUTIONS ARCHITECT - 09/20/2012 10:00 CDT Caffeine Use Grid Caffeine Use : Current Type : Coffee Frequency : Daily Amount : 2 RUBENS DUQUE CLOUD SOLUTIONS ARCHITECT - 09/20/2012 10:00 CDT Recreational Drug Use Grid Drug Use : None RUBENS DUQUE LPN - 09/20/2012 10:00 CDT Source: [employer] Document Id: [id number] CDT!44 documented in this encounter Plan of Treatment Not on filedocumented as of this encounter Visit Diagnoses Not on filedocumented in this encounter
--- OUTSIDE RECORDS SUMMARY | 2022-01-04 09:40 | XMS_ITS | Encounter Summary ---
:1935 Author Organization [facility] Address [address] [place] [address] Care Team Providers Name Role Phone Unavailable Primary Care Provider Unavailable Encounter Details Date Type Department Care Team Description 01/21/2013 Hospital Encounter HX [facility] Aleisha May M.D. [id number] [phone] (Wo rk) Social History Tobacco Use Types Packs/Day Years Used Date Smoking Tobacco: Never Assessed Sex Assigned at Date Recorded Not on file documented as of this encounter Last Filed Vital Signs Vital Sign Reading Time Taken Comments Blood Pressure 124/52 01/21/2013 8:23 AM FOOD TRUCK CATERER Pulse 68 01/21/2013 8:23 AM FOOD TRUCK CATERER Temperature - - Respiratory Rate 14 01/21/2013 8:23 AM FOOD TRUCK CATERER Oxygen Saturation - - Inhaled Oxygen Concentration - - Weight 60.3 kg (132 lb 15 oz) 01/21/2013 8:23 AM FOOD TRUCK CATERER Height - - Body Mass Index 22.98 10/01/2012 7:49 AM CDT documented in this encounter Medications at Time of Discharge Medication Sig Dispensed Refills Start Date End Date CALCIUM CARB/VIT Take by mouth daily. 0 1 01/21/2019 D3/MINERALS (CALCIUM-VITAMIN D ORAL) [id number] Take 1 capsule by 0 011 05/30/2018 oil 1,400 mg/5 mL liquid mouth daily. documented as of this encounter Progress Notes Aleisha Hermosillo M.D. - 01/21/2013 8:14 AM CST [id number] CHIEF COMPLAINT/REASON FOR VISIT Rash on scalp. HISTORY OF PRESENT ILLNESS Janeth is a 78-year-old female who reports having a rash to her scalp for about 1 year which has been coming and going. She states the last couple weeks have been much worse and she wonders ifit could be related to stress. She describes it as red with occasional itching but no pain. She saw Dermatology in April and started on betamethasone cream twice daily which seemed to be somewhat helpful. She has never had a rash similar in the past. She does get her hair dyed approximately every 5weeks and the last time it was dyed was 2 weeks ago. She also reports trying different shampoos for thinning hair. She never really paid attention to see if it gets worse depending upon what hair products she is using. MEDICATIONS Reconciled. No changes. ALLERGIES No known drug allergies. SYSTEMS REVIEW As per history of present illness. She has no rash anywhere else. VITAL SIGNS Temperature 36.2. Pulse is 68 beats per minute. Respiratory rate is 14 breaths per minute. Blood pressure is 124/52. Oxygen saturation is 98% on room air. Weight is 60.3 kg. PHYSICAL EXAMINATION GENERAL: The patient is alert and oriented in no acute distress. SKIN: Along the patient's scalp, especially the superior aspect of her head, there are scattered erythematous patches and macules which almost have a petechial appearance. In some areas you can see some telangiectasias. There is no flaking or other irritation. IMPRESSION/REPORT/PLAN Scalp rash. We reviewed note from Dermatology who felt it was likely a contact or allergic dermatitis. They had recommended a betamethasone cream. We will refill that today. We stated that stress couldcertainly be playing a role. I also recommended that she pay attention to what sort of agents she isusing on her scalp as that could cause it to flare. It was recommended that patient use Neutrogena T/Gel as well. If things are not improving, we will have her go back to Dermatology. #1 Patient Education Ready to learn No apparent learning barriers were identified Learning preferences include listening Explained diagnosis and treatment plan Patient/Child/Caregiver expressed understanding of the content Aleisha Carroll M.D./[facility] Electronically Signed By: ALEISHA GOLDEN MD On: 02/13/2013 01:00 PM Source: [facility] MHSDOLBEYNONRADSYS Document Id: [id number] TRUCK CATERER documented in this encounter Miscellaneous Notes Miscellaneous - Conversion, Historical Provider Ser - 03/26/2013 11:38 AM FOOD TRUCK CATERER Med Management Document Contains Addenda Addendum by ALEISHA GOLDEN MD on 26 March 2013 11:58:18 FOOD TRUCK CATERER From: ALEISHA GOLDEN MD To: DAVID BADILLO V; Sent: 03/26/2013 11:58:18 FOOD TRUCK CATERER Subject: RE:Med Management Approved Order:methylPREDNISolone (Medrol Dosepak 4 mg oral tablet) See special instructions PO As Directed Qty: 21 tab(s) Duration: 6 day(s) Refills: 0 Substitutions Allowed Route To Pharmacy - [facility] Signed by ALEISHA GOLDEN MD 03/26/2013 11:58:14 From: DAVID BADILLO V To: ALEISHA GOLDEN MD; DAVID BADILLO V; Sent: 03/26/2013 11:38:32 FOOD TRUCK CATERER Subject: Med Management On hold pending signature Order:methylPREDNISolone (Medrol Dosepak 4 mg oral tablet) See special instructions PO As Directed Qty: 21 tab(s) Duration: 6 day(s) Refills: 0 Substitutions Allowed Route To Pharmacy - [facility] pt got 11/[address] Fleming for right foot gout. Notes mention allopurinol if recurrs. Pt says it is now in 4th toe only Source: [facility] POWERCHART Document Id: [id number] Cuauhtemoc - Aleisha Hermosillo M.D. - 01/21/2013 9:08 AM FOOD TRUCK CATERER Ambulatory Depart Summary [id number] [facility] [place] [address] Visit Information Name: JANETH RANGEL [facility] Number: [id number] Visit Date: 01/21/2013 09:08:11 Attending Provider: ALEISHA GOLDEN MD Primary Care [...] medications. Medication/Strength Dose Route Frequency Indications/Special Instructions/Comments/Notes betamethasone topical (betamethasone valerate 0.1% topical lotion) [...] your provider for clarification. Additional Information: Source: [facility] POWERCHART Document Id: [id number] TRUCK CATERER Cuauhtemoc - Aleisha Hermosillo M.D. - 01/21/2013 9:08 AM FOOD TRUCK CATERER Ambulatory Patient Summary [address] [place] [address] Visit Information Name: JANETH RANGEL [facility] Number: [id number] Current Date: 01/21/2013 09:08:12 Physicians Attending Provider: ALEISHA GOLDEN MD Primary [...] medications. Medication/Strength Dose Route Frequency Indications/Special Instructions/Comments/Notes betamethasone topical (betamethasone valerate 0.1% topical lotion) [...] Time Location Reason Provider No Appointments found Attention: Contact your local Clinic if further appointment detail needed. Your Goals/Additional instructions: Source: [facility] POWERCHART Document Id: [id number] TRUCK CATERER Miscellaneous - Sheryl Cartwright L.P.N. - 01/21/2013 8:23 AM CST Adult Door Hanger Intake/History Adult Door Hanger Intake/History Entered On: 01/21/2013 8:27 FOOD TRUCK CATERER Performed On: 01/21/2013 8:23 FOOD TRUCK CATERER by SHERYL CARTWRIGHT LPN, RT Intake Chief Complaint : concerned about rash on scalp increasing x 1 year Temperature Core : 36.2 DegC(Converted to: 97.2 DegF) (LOW) Peripheral Pulse Rate : 68 /min Respiratory Rate : 14 /min Systolic Blood Pressure : 124 mmHg Diastolic Blood Pressure : 52 mmHg NIBP Mean : 76 mmHg BP Location : Right upper extremity Blood Pressure Cuff Size : Regular SpO2 : 98 % Oxygen Therapy : Room air Actual Weight : 60.3 kg(Converted to: 132 lb 15 oz) Weight Source : Standing scale Dosing Weight Clinic : 60.3 kg SHERYL CARTWRIGHT LPN, RT - 01/21/2013 8:23 FOOD TRUCK CATERER General Info Information Given By : Patient Preferred Communication Mode : Verbal Languages : Lao SHERYL CARTWRIGHT LPN, RT - 01/21/2013 8:23 FOOD TRUCK CATERER Subjective Pain Symptoms : No SHERYL CARTWRIGHT LPN, RT - 01/21/2013 8:23 FOOD TRUCK CATERER Dependent Habits Tobacco Use/Currently Using : Yes Exposure to Tobacco Smoke : Care provider denies smoking in home Smoking Status : Never smoker SHERYL CARTWRIGHT LPN, RT - 01/21/2013 8:23 FOOD TRUCK CATERER Tobacco Use Grid Last Use : never SHERYL CARTWRIGHT LPN, RT - 01/21/2013 8:23 FOOD TRUCK CATERER Caffeine Use Grid Caffeine Use : Current Type : Coffee Frequency : Daily Amount : 2 SHERYL CARTWRIGHT LPN, RT - 01/21/2013 8:23 FOOD TRUCK CATERER Recreational Drug Use Grid Drug Use : None SHERYL CARTWRIGHT LPN, RT - 01/21/2013 8:23 FOOD TRUCK CATERER Source: [facility] POWERCHART Document Id: [id number] FOOD TRUCK CATERER!38 TRUCK CATERER documented in this encounter Plan of Treatment Not on filedocumented as of this encounter Visit Diagnoses Not on filedocumented in this encounter
--- OUTSIDE RECORDS SUMMARY | 2022-01-04 09:40 | XMS_ITS | Encounter Summary ---
:1935 Author Organization [facility] Address [address] [place] [address] Care Team Providers Name Role Phone Unavailable Primary Care Provider Unavailable Encounter Details Date Type Department Care Team Description 04/17/2012 Hospital Encounter HX [facility] ME May Mcfadden M.D. [address] [place] [phone] (Wo rk) Social History Tobacco Use Types Packs/Day Years Used Date Smoking Tobacco: Never Assessed Sex Assigned at Date Recorded Not on file documented as of this encounter Last Filed Vital Signs Vital Sign Reading Time Taken Comments Blood Pressure 124/46 04/17/2012 2:55 PM MOLD TECHNICIAN Pulse 78 04/17/2012 2:55 PM MOLD TECHNICIAN Temperature - - Respiratory Rate 18 04/17/2012 2:55 PM MOLD TECHNICIAN Oxygen Saturation - - Inhaled Oxygen Concentration - - Weight 62.1 kg (136 lb 14.5 oz) 04/17/2012 2:55 PM MOLD TECHNICIAN Height - - Body Mass Index 23.52 12/06/2011 10:03 AM CDT documented in this encounter Medications at Time of Discharge Medication Sig Dispensed Refills Start Date End Date CALCIUM CARB/VIT Take by mouth daily. 0 1 01/21/2019 D3/MINERALS (CALCIUM-VITAMIN D ORAL) [id number] Take 1 capsule by 0 011 05/30/2018 oil 1,400 mg/5 mL liquid mouth daily. documented as of this encounter H&P Notes Marisol Mcfadden M.D. - 04/17/2012 2:41 PM CST [id number] CHIEF COMPLAINT/REASON FOR VISIT A 77-year-old female presented to the clinic with complaints of a painful right foot. HISTORY OF PRESENT ILLNESS Said that she had a history of gout before, the last attack was in December of 2011. Patient said this attack has lasted for about 2-weeks, she has a hard time walking, painful right foot. She has a spot of redness on the top of the right foot on the lateral aspect; never had any uric acid tests done. CURRENT MEDICATIONS Medication list is reviewed and reconciled. PAST MEDICAL/SURGICAL HISTORY History of underlying aortic insufficiency. Hypertension. PHYSICAL EXAM HEAD, NECK, EYE, ENT EXAMINATION: Is unremarkable. RIGHT FOOT: Patient has a redness with induration, tenderness on the lateral aspect of the dorsum ofthe right foot. Distal sensation and pulses are intact. IMPRESSION/REPORT/PLAN Acute gouty arthritis. PLAN 1) Uric acid level is done on today's visit, within normal range. 2) Patient is started on Indocin, 50 milligrams 3-times a day for 5 to 7-days. Advised to take the medication with food. 3) Her kidney functions are normal range. That is the reason I started her on a slightly higher dosethan would for a patient of her age. 4) The rest of her medications stay the same. 5) Patient is advised that she can save the rest of Indocin for future use if needed. 6) I looked at patient's uric acid level, results will be called back to patient. 7) Patient at this time does not need any Allopurinol, etc. for prophylaxis of gout. Marisol Mcfadden M.D./keith DOCID: [id number] Electronically Signed By: MARISOL MCFADDEN MD On: 04/18/2012 04:43 PM Source: [facility] JEREMYSDZONIA Document Id: [id number] TECHNICIAN documented in this encounter Miscellaneous Notes Miscellaneous - Marisol Mcfadden M.D. - 04/19/2012 5:59 AM CST Results Notification Document Contains Addenda Addendum by ALEX JONES on 24 April 2012 14:40:25 MOLD TECHNICIAN results mailed to the patient. Addendum by ALEX JONES on 19 April 2012 09:44:07 MOLD TECHNICIAN left message for the patient to call back From: MARISOL MCFADDEN MD To: SE DALAL LPN Sent: 04/19/2012 05:59:44 MOLD TECHNICIAN ! Show up: 04/19/2012 11:59:44 [facility] Subject: Results Notification Actions: Notify patient of results Source: [facility] POWERCHART Document Id: [id number] Miscellaneous - Marisol Mcfadden M.D. - 04/17/2012 3:42 PM CST Ambulatory Patient Summary [id number] [place] [address] Visit Information Name: JUAN J DUENAS [facility] Number: [id number] Current Date: 04/17/2012 15:42:37 Physicians Attending Provider: MARISOL MCFADDEN MD Primary Care Provider: MARISOL MCFADDEN MD Your Medications Here is a list of your medications. It is important to take your medications as directed. Use a pillbox or chart to help remind you to take your medications. Please let your doctor or nurse know if you have problems taking your medications. Medication/Strength Dose Route Frequency Indications/Special Instructions/Comments indomethacin (Indocin 50 mg oral capsule) 50 [...] No Appointments found Your Goals/Additional instructions: Source: [facility] POWEREntraTympanic Document Id: [id number] TECHNICIAN Miscellaneous - Marisol Mcfadden M.D. - 04/17/2012 3:42 PM CST Ambulatory Depart Summary [address] [address] Visit Information Name: JUAN J DUENAS RHYS [facility] Number: [id number] Visit Date: 04/17/2012 15:42:36 Attending Provider: MARISOL MCFADDEN MD Primary Care Provider: MARISOL MCFADDEN MD JUAN J DUENASE has been given the following list of medications: Your Medications It is important to take your medications as directed. Use a pill box or chart to help remind you to take your medications. Please let your doctor or nurse know if you have problems taking your medications. Medication/Strength Dose Route Frequency Indications/Special Instructions/Comments indomethacin (Indocin 50 mg oral capsule) 50 [...] your provider for clarification. Additional Information: Source: [facility] POWERCHART Document Id: [id number] TECHNICIAN Miscellaneous - Sienna Marcum L.P.NKai - 04/17/2012 2:55 PM CST Adult Power Chisel Operator Intake/History Adult Power Chisel Operator Intake/History Entered On: 04/17/2012 15:00 MOLD TECHNICIAN Performed On: 04/17/2012 14:55 MOLD TECHNICIAN by SIENNA KNUTSON LPN Intake Chief Complaint : check up on gout Temperature Core : 36.4C(Converted to: 97.5DegF) (LOW) Peripheral Pulse Rate : 78/min Respiratory Rate : 18/min Heart Rhythm : Regular Systolic Blood Pressure : 124mmHg Diastolic Blood Pressure : 46mmHg (<LLOW) NIBP Mean : 72mmHg BP Location : Left upper extremity Blood Pressure Cuff Size : Regular Actual Weight : 62.1kg(Converted to: 136lb 15oz) Weight Source : Standing scale Dosing Weight Clinic : 62.10kg SIENNA KNUTSON LPN - 04/17/2012 14:55 MOLD TECHNICIAN General Info Information Given By : Patient Languages : Djiboutian SIENNA KNUTSON LPN - 04/17/2012 14:55 MOLD TECHNICIAN Subjective Pain Symptoms : Yes SIENNA KNUTSON LPN - 04/17/2012 14:55 MOLD TECHNICIAN Pain Pain Assessment Grid Pain 1 Location : Foot Laterality : Right SIENNA KNUTSON LPN - 04/17/2012 14:55 MOLD TECHNICIAN Dependent Habits Tobacco Use/Currently Using : No Exposure to Tobacco Smoke : Care provider denies smoking in home Smoking Status : Never smoker SIENNA KNUTSON SERVICE DELIVERY SUPERVISOR - 04/17/2012 14:55 MOLD TECHNICIAN Tobacco Use Grid Last Use : never SIENNA KNUTSON JARON - 04/17/2012 14:55 MOLD TECHNICIAN Alcohol Use : Yes SIENNA KNUTSON SERVICE DELIVERY SUPERVISOR - 04/17/2012 14:55 MOLD TECHNICIAN Caffeine Use Grid Caffeine Use : Current Type : Coffee Frequency : Daily Amount : 2 SIENNA KNUTSON SERVICE DELIVERY SUPERVISOR - 04/17/2012 14:55 MOLD TECHNICIAN Recreational Drug Use Grid Drug Use : None SIENNA KNUTSON SERVICE DELIVERY SUPERVISOR - 04/17/2012 14:55 MOLD TECHNICIAN Allergy Allergies (Active) NKA Estimated Onset Date: Unspecified ; Created By: MAY DAVIDSON LPN; Reaction Status: Active ;Category: Drug ; Substance: NKA ; Type: Allergy ; Updated By: MAY DAVIDSON LPN; Reviewed Date: 01/02/2012 7:58 CDT Source: [facility] POWERCHART Document Id: [id number] TECHNICIAN documented in this encounter Plan of Treatment Not on filedocumented as of this encounter Procedures Procedure Name Priority Date/Time Associated Diagnosis Comme nts URIC ACID, S/P Routine 04/17/2012 3:50 PM Results for this MOLD TECHNICIAN procedure are i n the results section . documented in this encounter Results Uric Acid (04/17/2012 3:50 PM MOLD TECHNICIAN) P athologist Signature Uric Acid, S 7.5 2.8 - 8.0 POWERCHART MGDL Specimen (Source) Anatomical Collection Method Collection Time Re ceived Time Location / / Volume Laterality Blood 04/17/2012 3:50 PM MOLD TECHNICIAN Marisol Mcfadden M.D. LAB BLOOD ADD-ON Performing Organization Address City/State/ZIP Code Phon e Number POWERCHART documented in this encounter Visit Diagnoses Not on filedocumented in this encounter
--- OUTSIDE RECORDS SUMMARY | 2022-01-04 09:40 | XMS_ITS | Encounter Summary ---
:1935 Author Organization [facility] Address [address] [place] [address] Care Team Providers Name Role Phone Unavailable Primary Care Provider Unavailable Encounter Details Date Type Department Care Team Description 09/04/2013 Hospital Encounter HX [facility] ME Ginna Tejada M.D. Social History Tobacco Use Types Packs/Day Years Used Date Smoking Tobacco: Never Assessed Sex Assigned at Date Recorded Not on file documented as of this encounter Last Filed Vital Signs Vital Sign Reading Time Taken Comments Blood Pressure 118/57 09/04/2013 5:27 PM CDT Pulse 66 09/04/2013 5:27 PM CDT Temperature - - Respiratory Rate 14 09/04/2013 5:27 PM CDT Oxygen Saturation - - Inhaled Oxygen Concentration - - Weight 59.5 kg (131 lb 2.8 oz) 09/04/2013 5:27 PM CDT Height - - Body Mass Index 23.83 08/28/2013 10:16 AM CDT documented in this encounter Medications at Time of Discharge Medication Sig Dispensed Refills Start Date End Date CALCIUM CARB/VIT Take by mouth daily. 0 1 01/21/2019 D3/MINERALS (CALCIUM-VITAMIN D ORAL) [id number] Take 1 capsule by 0 011 05/30/2018 oil 1,400 mg/5 mL liquid mouth daily. documented as of this encounter Progress Notes Ginna Tejada M.D. - 09/04/2013 5:24 PM CDT [id number] CHIEF COMPLAINT/REASON FOR VISIT Janeth is here with left ankle swelling and redness, she has had for about a week. It is sore. She does not recall any injury. She has a history of gout. She was initially diagnosed with gout in April. She saw Dr. Rehman in the emergency room. He gave her some Indocin, which has been helpful, and she just basically came in to see if I though it was gout too. She has not taken any Indocin this time.She received a warning from the insurance company that Indocin can be kind of tough on her stomach, but she does usually to try to take it with food and has not noticed any problems with it. She does take it with food. PHYSICAL EXAMINATION Today, she is afebrile. She is in no acute distress, but her left ankle is swollen. It is erythematous. It is tender to touch. The tenderness is mostly concentrated on the lateral side just posterior and inferior to the lateral malleolus. IMPRESSION/REPORT/PLAN I do think this is gout. I told her she can continue with the Indocin as needed. She should be sure she takes it with food. I told her too that if she did not think the gout was that bad, she could [id number]-[id number] ibuprofen or Aleve. Ginna Tejada M.D./dayanna Electronically Signed By: GINNA TEJADA MD On: 09/09/2013 07:50 AM Source: [facility] MHSDOLBEYNONRADSYS Document Id: [id number] documented in this encounter Miscellaneous Notes Miscellaneous - Ginna Tejada M.D. - 09/04/2013 6:12 PM CDT Ambulatory Patient Summary [address] [place], [place] [id number] Visit Information Name: JANETH RANGEL [facility] Number: [id number] Current Date: 09/04/2013 18:12:07 Physicians Attending Provider: GINNA TEJADA MD Primary Care Provider: RACHEALMAGO OSORIO MD JANETH RANGEL has been given the [...] the Following Medications: Medication list as of 09-04-13 18:12 Attention: If you have any medications at home that are not on this list, DO NOT take them until youcontact your provider for clarification. Give a copy of your medication list to your primary care provider. Update your medication list any time medications or doses are changed and carry your medication list at all times in case of emergency. Electronically Signed By: GINNA TEJADA MD Signed On:04-SEP-2013 18:11:33 Your Allergies & Intolerances Substance Reaction Symptoms [...] appointment detail needed. Your Goals/Additional instructions: Source: [facility] POWERCHART Document Id: [id number] Miscellaneous - Ginna Tejada M.D. - 09/04/2013 6:12 PM CDT Ambulatory Discharge Medication List [address] [id number] Visit Information Name: JANETH RANGEL [facility] Number: [id number] Visit Date: 09/04/2013 18:12:05 Attending Provider: GINNA TEJADA MD Primary Care [...] the Following Medications: Medication list as of 09-04-13 18:12 Attention: If you have any medications at home that are not on this list, DO NOT take them until youcontact your provider for clarification. Give a copy of your medication list to your primary care provider. Update your medication list any time medications or doses are changed and carry your medication list at all times in case of emergency. Electronically Signed By: GINNA TEJADA MD Signed On:04-SEP-2013 18:11:33 Additional Information: Source: [facility] POWERCHART Document Id: [id number] Miscellaneous - Sheryl Cartwright, L.P.N. - 09/04/2013 5:27 PM CDT Adult Game Programer Intake/History Adult Game Programer Intake/History Entered On: 09/04/2013 17:33 CDT Performed On: 09/04/2013 17:27 CDT by SHERYL CARTWRIGHT LPN, RT Intake Chief Complaint : concerned about left anlke swelling and redness x 1 week. Temperature Core : 36.6 DegC(Converted to: 97.9 DegF) Peripheral Pulse Rate : 66 /min Respiratory Rate : 14 /min Systolic Blood Pressure : 118 mmHg Diastolic Blood Pressure : 57 mmHg NIBP Mean : 77 mmHg BP Location : Left upper extremity Blood Pressure Cuff Size : Regular Actual Weight : 59.5 kg(Converted to: 131 lb 3 oz) Weight Source : Standing scale Dosing Weight Clinic : 59.5 kg SHERYL CARTWRGIHT LPN, RT - 09/04/2013 17:27 CDT General Info Information Given By : Patient Preferred Communication Mode : Verbal Languages : Kyrgyz SHERYL CARTWRIGHT LPN, RT - 09/04/2013 17:27 CDT Subjective Pain Symptoms : Yes SHERYL CARTWRIGHT LPN, RT - 09/04/2013 17:27 CDT Pain Pain Assessment Grid Pain 1 Location : Ankle Laterality : Left SHERYL CARTWRIGHT LPN, RT - 09/04/2013 17:27 CDT Dependent Habits Tobacco Use/Currently Using : No Exposure to Tobacco Smoke : Care provider denies smoking in home Smoking Status : Never smoker SHERYL CARTWRIGHT LPN, RT - 09/04/2013 17:27 CDT Tobacco Use Grid Last Use : never SHERYL CARTWRIGHT LPN, RT - 09/04/2013 17:27 CDT Caffeine Use Grid Caffeine Use : Current Type : Coffee Frequency : Daily Amount : 2 SHERYL CARTWRIGHT LPN, RT - 09/04/2013 17:27 CDT Recreational Drug Use Grid Drug Use : None SHERYL CARTWRIGHT LPN, RT - 09/04/2013 17:27 CDT Source: [employer] Document Id: [id number]!41 documented in this encounter Plan of Treatment Not on filedocumented as of this encounter Visit Diagnoses Not on filedocumented in this encounter
--- OUTSIDE RECORDS SUMMARY | 2022-01-04 09:40 | XMS_ITS | Encounter Summary ---
:1935 Author Organization [facility] Address [address] [place] [address] Care Team Providers Name Role Phone Unavailable Primary Care Provider Unavailable Encounter Details Date Type Department Care Team Description 08/01/2014 Hospital Encounter HX [facility] ED Diony Mak III, M.D. [address] [place] [phone] (Wo rk) Social History Tobacco Use Types Packs/Day Years Used Date Smoking Tobacco: Never Assessed Sex Assigned at Date Recorded Not on file documented as of this encounter Last Filed Vital Signs Vital Sign Reading Time Taken Comments Blood Pressure 159/49 08/01/2014 11:59 AM CDT Pulse 69 08/01/2014 10:58 AM CDT Temperature - - Respiratory Rate 16 08/01/2014 10:58 AM CDT Oxygen Saturation - - Inhaled Oxygen Concentration - - Weight - - Height - - Body Mass Index - - documented in this encounter Discharge Summaries Jessie Onofre R.N. - 08/01/2014 12:12 PM CDT ED Discharge Instructions [address] [address] Name: JUAN J DUENAS Date of : 1935 12:00 AM Visit Date: 08/01/2014 10:17 AM [facility] Number: [id number] Address: [address] [facility] [place] [phone] Primary Care Provider: MAGO GOLDEN MD IMPORTANT: [facility] in [place] would like to thank you for allowing us to assist you with your healthcare needs. The following includes patient education materials and informationregarding your injury/illness. Diagnosis: 1:Costochondritis Follow-Up Instructions: With: Address: When: MAGO GOLDEN [address] [place] [address] [place] [address] [phone] Business (1) Within 1 - 2 weeks Comments: f/u chest pain ED. HTN Your Upcoming Appointments: Date Time Location Provider No Appointments found Patient Education Materials: Chest Wall Pain: Costochondritis The chest pain that you have had today is caused by Costochondritis. This condition is due to an inflammation of the cartilage joining the ribs to the breastbone. It is not caused by heart or lung problems. Although the exact cause for costochondritis is not known, it often occurs during times of emotional stress. It can be painful, but it is not dangerous. It usually disappears within one to two weeks, but may recur. Rarely, a more serious condition may cause symptoms similar to costochondritis; therefore, watch for the warning signs listed below. Home Care: ?? If you feel that emotional stress is a cause of your condition, try to identify sources of that stress. It may not be obvious! Learn ways to deal with the stress in your life such as regular exercise, muscle relaxation, meditation, or simply taking time out for yourself. For more information about this, consult your doctor or go to a local bookstore and review books and tapes available on the subject of stress reduction. ?? You may use acetaminophen (Tylenol) or ibuprofen (Motrin, Advil) to control pain, unless another pain medicine was prescribed. [ NOTE: If you have liver disease or ever had a stomach ulcer, talk with your doctor before using these medicines.] ?? The use of heat (hot wet compress or heating pad) with or without local analgesic creams (Deep Heat Rub, Ronn Whitmore) will be helpful to reduce pain. Follow Up with your doctor as directed or sooner if you do not start to improve within the next two days. Get Prompt Medical Attention if any of the following occur: ?? A change in the type of pain: if it feels different, becomes more severe, lasts longer, or spreads into your shoulder, arm, neck, jaw or back ?? Shortness of breath or increased pain with breathing ?? Weakness, dizziness, or fainting ?? Cough with dark colored sputum (phlegm) or blood ?? Abdominal pain ?? Dark red or black stools ?? Fever of 100.4?F (38?C) or higher, or as directed by your healthcare provider ?? [phone] [facility], [address] [place] [address], [place] [address]. All rights reserved. This information is not intended as a substitute for professional medical care. Always follow your healthcare professional's instructions. ED Tests and Procedures: Order Status Oxygen - ED Ordered Basic Metabolic Panel Completed CBC (includes Auto Differential) Completed Troponin T Completed XR Chest 2 Views Completed Automated Diff-5 Part Completed Discharge Prescriptions & Home Medications: Medication/Strength Dose Route Frequency Indications/Special Instructions/Comments/Notes aspirin (aspirin 81 mg oral tablet) 81 mg Oral once a day indomethacin (Indocin 50 mg oral capsule) 50 mg Oral three times a day as needed for Gout pain Take with food *omeprazole (omeprazole 20 mg oral delayed release tablet) 20 mg Oral once a day atenolol (atenolol 50 mg oral tablet) 50 mg Oral once a day lisinopril-hydrochlorothiazide (lisinopril-hydrochlorothiazide 20 mg-25 mg oral tablet) 1 tab(s) Oral once a day (Zestoretic) *aspirin (Aspirin Enteric Coated 325 mg oral delayed release tablet) 325 mg Oral once a day start with two time per day for one week calcium-vitamin D (Calcium 600+D) 1 tab Oral [...] how to take those medications. JUAN J DUENAS or designee has reviewed the home medications [...] arrange a ride home with a responsible constitution party. I, JUAN J DUENAS , or responsible constitution party have received this information and my questions have been answered. I have discussed any challenges I see with this plan with the nurse or physician. Patient Signature or Responsible Democrat/Relationship Date Time Provider Signature Date Time Medication Reconciliation: Reconciliation is a process of identifying the most accurate list of all medications a patient is taking - including name, dosage, frequency, and route - and using this list to provide to the patient information about how to take those medications. JUAN J DUENAS or shahram has reviewed the home medications you have [...] arrange a ride home with a responsible constitution party. I, JUAN J DUENAS , or responsible constitution party have received this information and my questions have been answered. I have discussed any challenges I see with this plan with the nurse or physician. Patient Signature or Responsible Democrat/Relationship Date Time Provider Signature Date Time This document has images extracted. Please consider using [employer] for all your patient education needs. Source: [facility] POWERCHART Document Id: [id number] Jessie Onofre R.N. - 08/01/2014 12:12 PM CDT ED Depart Summary [facility] Emergency Department Clinical Discharge Summary PERSON INFORMATION Name JUAN J DUENAS Age 79 Years 1935 12:00 AM Sex Female Language Luxembourgish PCP MAGO GOLDEN MD Marital Status Visit Id Visit Reason Chest pain; Chest pain; Chest Pains Specialty Enc Type Emergency Med Service Emergency Medicine Referred by Track Group [facility] ED Discharge 08/01/2014 12:05 PM Tracking Id [id number] Checkout 08/01/2014 12:05 PM Checkin 08/01/2014 10:17 AM Acuity 3 -Urgent Dispo Type * Discharged to Home or Self Care Arrival 08/01/2014 10:17 AM Reg Status Complete LOS 000 01:48 Address: [address] [facility] [place] [phone] Comment: PROVIDER INFORMATION Provider Role Provider Contact Time DIONY MAK III, MD ED Provider 08/01/14 10:29 JESSIE ONOFRE ARCHITECTURE FACULTY MEMBER Nurse 08/01/14 11:25 DIAGNOSIS 1:Costochondritis Comment: PATIENT EDUCATION INFORMATION Instructions: CHEST WALL PAIN, Costochondritis Follow up: With: Address: When: MAGO GARCIA[address] [place] [address] [facility] (6) Within 1 - 2 weeks Comments: f/u chest pain ED. HTN Source: [employer] Document Id: [id number] documented in this encounter Medications at Time of Discharge Medication Sig Dispensed Refills Start Date End Date aspirin [address] tablet Take 1 tablet by 0 201401/21/2019 mouth daily. CALCIUM CARB/VIT Take by mouth daily. 0 1 01/21/2019 D3/MINERALS (CALCIUM-VITAMIN D ORAL) [id number] Take 1 capsule by 0 011 05/30/2018 oil 1,400 mg/5 mL liquid mouth daily. documented as of this encounter ED Notes Jessie Onofre, R.N. - 08/01/2014 12:04 PM CDT ED Treatments and Procedures ED Treatments and Procedures Entered On: 08/01/2014 12:04 CDT Performed On: 08/01/2014 12:04 CDT by JESSIE ONOFRE mat packer Monitoring Monitoring Lead : II Monitoring Lead Nurse Epidemiologist : Discontinued JESSIE ONOFRE RN - 08/01/2014 12:04 CDT Peripheral IV Peripheral IV Assess/Intervention Grid Peripheral IV #1 IV Activity : Discontinue Removal : Catheter intact Number of Attempts : 1 Date of Insertion : 08/01/2014 CDT IV Site : Antecubital Laterality : Right Catheter Size : 18 Catheter Type : Protective JESSIE ONOFRE RN - 08/01/2014 12:04 CDT Source: [employer] Document Id: [id number] CDT!15 Jessie Onofre R.N. - 08/01/2014 11:59 AM CDT ED Nurse Reassess ED Nurse Reassess Entered On: 08/01/2014 11:59 CDT Performed On: 08/01/2014 11:59 CDT by JESSIE ONOFRE RN Pain Assessment Pain Symptoms : No JESSIE ONOFRE RN - 08/01/2014 11:59 CDT Source: [employer] Document Id: [id number] CDT!3 Fawad Das R.N. - 08/01/2014 11:56 AM CDT ED Disposition Summary ED Disposition Summary Entered On: 08/01/2014 11:56 CDT Performed On: 08/01/2014 11:56 CDT by FAWAD DAS RN ED Disposition Summary Accompanied By : Daughter Mode of Discharge : Ambulatory Transportation : Private vehicle Printed Discharge Instructions Given to Patient : Yes Patient Status at Discharge from ED : Unchanged FAWAD DAS RN - 08/01/2014 11:56 CDT Source: [employer] Document Id: [id number] CDT!7 Fawad Das R.N. - 08/01/2014 11:56 AM CDT ED Pain Assessment ED Pain Assessment Entered On: 08/01/2014 11:56 CDT Performed On: 08/01/2014 11:56 CDT by FAWAD DAS RN Pain Assessment Pain Symptoms : No FAWAD DSA RN - 08/01/2014 11:56 CDT Source: [employer] Document Id: [id number] CDT!3 Jessie Onofre R.N. - 08/01/2014 11:38 AM CDT ED Primary Assessment Document Has Been Updated ED Primary Assessment Entered On: 08/01/2014 11:39 CDT Performed On: 08/01/2014 11:38 CDT by JESSIE ONOFRE RN Reason For Visit (As Of: 08/01/2014 11:40:00 CDT) Problems(Active) Aortic insufficiency (ICD-9-CM :424.1 ) Name of Problem: Aortic insufficiency ; Onset Date: 10/20/2011 ; Recorder: BATSHEVA NEWBY RN; Confirmation: Confirmed ; Classification: Nursing ; Code: 424.1; Contributor System: [employer] ; Last Updated: 12/06/2011 10:38 CDT ; Life Cycle Date: 11/01/2011 ; Life Cycle Status: Active ; Responsible Provider: BATSHEVA NEWBY RN; Vocabulary: ICD-9-CM ; Comments: 12/06/2011 8:34 - RUBENS AGUILAR LPN unknown date of dx 12/06/2011 10:38 - HUBER CORRALES DNP, SCHOOL BUS INSPECTOR stress test Gout NOS (ICD-9-CM :274.9 ) [...] Medical ; Code: 272.0 ; Contributor System: [facility]_H[facility]_PR_UPLOAD ; Last Updated: 06/01/2013 18:11 CDT ; Life Cycle Status: Active ; Vocabulary: ICD-9-CM ; Comments: - Pure hypercholesterolemia Diagnoses(Active) Chest pain Date: 08/01/2014 ; Diagnosis Type: Reason For Visit ; Confirmation: Complaint of ; Clinical Dx: Chest pain ; Classification: Medical ; Clinical Service: Non-Specified ; Code: PNED ; Probability: 0 ; Diagnosis Code: [id number] Chest pain Date: 08/01/2014 ; Diagnosis Type: Reason For Visit ; Confirmation: Confirmed ; Clinical Dx: Chest pain ; Classification: Medical ; Clinical Service: Emergency medicine ; Code: PNED ; Probability: 0 ; Diagnosis Code: [id number] Triage Mode of Arrival ED : Private vehicle Track : Medical Languages : Luxembourgish Treatments Prior to Arrival : Aspirin Is Patient Female and 13-50 no hysterectomy : No JESSIE ONOFRE RN - 08/01/2014 11:38 CDT Pain Assessment Pain Symptoms : No JESSIE ONOFRE RN - 08/01/2014 11:38 CDT ID Screen Drug Resistant Organism : No Travel Within Last 21 Days : No Contact with someone with Ebola : No JESSIE ONOFRE RN - 08/01/2014 11:38 CDT Respiratory Airway : Patent Respirations : Unlabored Respiratory Pattern : Regular JESSIE ONOFRE RN - 08/01/2014 11:38 CDT Cardiovascular Heart Rhythm : Regular Skin Color : Normal for ethnicity Skin Description : Dry Skin Temperature : Warm JESSIE ONOFRE RN - 08/01/2014 11:38 CDT Neurological Last Well Time Known : Not applicable Level of Consciousness : Alert Orientation : Oriented x 3 Characteristics of Speech : Appropriate for age JESSIE ONOFRE RN - 08/01/2014 11:38 CDT ED Psychosocial Affect/Behavior : Calm, Cooperative, Appropriate Domestic Abuse Concerns : None Behavioral Health Screen/Safety Assmt : No JESSIE ONOFRE RN - 08/01/2014 11:38 CDT Gastrointestinal Nutrition ED : Adequate JESSIE ONOFRE RN - 08/01/2014 11:38 CDT Musculoskeletal Fall Prevention Education Provided : JESSIE MENARD RN - 08/01/2014 11:38 CDT Social Habits Tobacco Use/Currently Using : No Exposure to Tobacco Smoke : Care provider denies smoking in home Smoking Status : Never smoker JESSIE ONOFRE RN - 08/01/2014 11:38 CDT Recreational Drug Use Grid Drug Use : None JESSIE ONOFRE RN - 08/01/2014 11:38 CDT Source: [employer] Document Id: [id number] CDT!42 Jessie Onofre R.N. - 08/01/2014 11:26 AM CDT ED Nurse Reassess ED Nurse Reassess Entered On: 08/01/2014 11:27 CDT Performed On: 08/01/2014 11:26 CDT by JESSIE ONOFRE RN Pain Assessment Pain Symptoms : No JESSIE ONOFRE RN - 08/01/2014 11:26 CDT Source: [employer] Document Id: [id number] CDT!3 Ruiz Vilchis R.N. - 08/01/2014 11:01 AM CDT ED Nurse Reassess ED Nurse Reassess Entered On: 08/01/2014 11:01 CDT Performed On: 08/01/2014 11:01 CDT by RUIZ VILCHIS RN Pain Assessment Pain Symptoms : No RUIZ VILCHIS RN - 08/01/2014 11:01 CDT Source: [employer] Document Id: [id number] CDT!3 Jessie Onofre R.N. - 08/01/2014 10:38 AM CDT ED Treatments and Procedures ED Treatments and Procedures Entered On: 08/01/2014 10:38 CDT Performed On: 08/01/2014 10:38 CDT by JESSIE ONOFRE RN Peripheral IV Peripheral IV Assess/Intervention Grid Peripheral IV #1 IV Activity : Start Number of Attempts : 1 Date of Insertion : 08/01/2014 CDT IV Site : Antecubital Laterality : Right Catheter Size : 18 Catheter Type : Protective JESSIE ONOFRE RN - 08/01/2014 10:38 CDT Source: [facility] [employer] Document Id: [id number] CDT!11 Diony Mak M.D. - 08/01/2014 10:26 AM CDT Chest pain Patient: JUAN J DUENAS Age: 79 years Sex: Female : 1935 Author: DIONY MAK III, MD Attachments: None Associated Diagnosis: Costochondritis; Chest pain Basic Information Time seen: Immediately upon arrival. History source: Patient. Arrival mode: Private vehicle. History limitation: None. History of Present Illness The patient presents with chest pain. The onset was 15 hours ago and gradual. The course/duration ofsymptoms is resolved: lasted 14 hour(s). Location: Left anterior lateral chest. Radiating pain: leftshoulder. The character of symptoms is achy. The degree at onset was 2 /10. The degree at maximum was 6 /10. . The degree at present is none. There are exacerbating factors including movement and palpation. The relieving factor is rest. Risk factors consist of hypertension and hyperlipidemia. Prior episodes: none. Therapy today None. Associated symptoms: denies shortness of breath, denies nausea, denies vomiting, denies diaphoresis, denies anxiety and denies palpitations. Review of Systems Constitutional symptoms: Negative except as documented in HPI. Skin symptoms: Negative except as documented in HPI. Eye symptoms: Negative except as documented in HPI. ENMT symptoms: Negative except as documented in HPI. Respiratory symptoms: Negative except as documented in HPI. Cardiovascular symptoms: Negative except as documented in HPI. Gastrointestinal symptoms: Negative except as documented in HPI. Genitourinary symptoms: Negative except as documented in HPI. Musculoskeletal symptoms: Negative except as documented in HPI. Neurologic symptoms: Negative except as documented in HPI. Psychiatric symptoms: Negative except as documented in HPI. Endocrine symptoms: Negative except as documented in HPI. Hematologic/Lymphatic symptoms: Negative except as documented in HPI. Allergy/immunologic symptoms: Negative except as documented in HPI. Health Status Allergies: Nonallergic Reactions (Selected) No Known Medication Allergies. Medications: (Selected) Inpatient Medications Ordered Saline flush: 10 mL, IV Push, PRN, PRN: Maintain IV access Prescriptions Prescribed Aspirin Enteric Coated 325 mg oral delayed release tablet: 325 mg, 1 tab(s), PO, Daily, start with two time per day for one week, 30 tab(s) Indocin 50 mg oral capsule: 50 mg, 1 cap(s), PO, 3xDay, Take with food, 50 cap(s), PRN: Gout pain atenolol 50 mg oral tablet: 50 mg, 1 tab(s), PO, Daily, 90 tab(s) lisinopril-hydrochlorothiazide 20 mg-25 mg oral tablet: 1 tab(s), PO, Daily, 90 tab(s) omeprazole 20 mg oral delayed release tablet: 20 mg, 1 tab(s), PO, Daily, 30 tab(s) Documented Medications Documented Calcium 600+D: 1 tab, PO, Daily Fish Oil oral capsule: 1 cap(s), PO, Daily, 100 cap(s) aspirin 81 mg oral tablet: 81 mg, 1 tab(s), PO, Daily. Past Medical/ Family/ Social History Medical history: Active Hypertension (401.9): Onset in 1990 at 55 years. Resolved Tick Bite (919.4): Onset on 05/25/2011 at 76 years. Resolved.. Surgical history: Colonoscopy (SNOMED CT 083842419) on 08/28/2013 at 78 Years. Echocardiogram (SNOMED CT 2435042040) on 06/06/2013 at 78 Years. Colonoscopy (SNOMED CT 945524379) performed by GINNA TEJADA MD on 11/08/2006 at 71 Years. Comments: 01/28/2011 08:40 - GINNA TEJADA MD, Dr in [place] One sessile polyp recommended repeat in 5 years [facility] COLONOSCOPY W SNARE REMOVAL TUMOR/POLYP/LESION - 11/08/06 on 11/08/2006 at 71 Years. Hysterectomy (SNOMED CT 403519382) in 1975 at 41 Years. C TOTAL ABDOM HYSTERECTOMY - 1970's - Hysterectomy, Total Abdominal (bleeding) - benign on .. Family history: Diabetes mellitus Mother () Hypertension Mother () Father () Son Alzheimer's disease Father () . Social history: Alcohol use: Occasionally, Tobacco use: Denies, Drug use: Denies, Occupation: Retired, Family/social situation: , intact family. Problem list: All Problems (Selected) Hypertension / 401.9 / Confirmed Pure Hypercholesterolemia / 272.0 / Confirmed Aortic insufficiency / 424.1 / Confirmed Gout NOS / 274.9 / Confirmed. Physical Examination Vital Signs: Vital Signs 08/01/2014 10:23 CDT Temperature Core 37.0 DegC Peripheral Pulse Rate 80 /min Respiratory Rate 18 /min SpO2 96 % Systolic Blood Pressure 170 mmHg >HHI Diastolic Blood Pressure 67 mmHg Mean Arterial Pressure 101 mmHg . General: Alert and no acute distress. Skin: Warm, dry and pink. Head: Normocephalic and atraumatic. Neck: Supple, trachea midline, no tenderness, no JVD and no carotid bruit. Cardiovascular: Regular rate and rhythm, Normal peripheral perfusion, No edema, Systolic murmur: 2 /6, at apex, radiating LSB and Bruit: None. Respiratory: Lungs are clear to auscultation, respirations are non-labored, breath sounds are equal and Symmetrical chest wall expansion. Chest wall: On exam: Left, anterior, lateral, mild. Gastrointestinal: Soft, Nontender, Non distended, Normal bowel sounds and No organomegaly. Neurological: Alert and oriented to person, place, time, and situation. Psychiatric: Cooperative, appropriate mood & affect and normal judgment. Medical Decision Making Differential Diagnosis:Unstable angina, angina, anxiety, atypical chest pain. OrdersLaunch Orders Laboratory: Basic Metabolic Panel (Order Processing): Stat, 08/01/2014 10:28 CDT, Once, CC 2 CBC (includes Auto Differential) (Order Processing): Stat, 08/01/2014 10:28 CDT, Once, CC 2 Troponin T (Order Processing): Stat, 08/01/2014 10:28 CDT, Once, CC 2 Patient Care: ED Chest Pain (Order Processing) Cardiac Monitoring (Order Processing): 08/01/2014 10:28 CDT, Once Pulse Oximetry-ED (Order Processing): 08/01/2014 10:28 CDT Vital Signs q 30 Minutes - ED (Order Processing): 08/01/2014 10:27 CDT ED Saline Lock (Order Processing) Peripheral IV (Order Processing): 08/01/2014 10:28 CDT Pharmacy: Saline flush (Order Processing): 10 mL, IV Push, PRN, PRN: Maintain IV access Radiology: XR Chest 2 Views (Order Processing): 08/01/2014 10:28 CDT, Chest pain, Stat, Patient Bed, Once, 08/01/2014 10:28 CDT, CC 2, [facility] ED: Oxygen - ED (Order Processing): 08/01/2014 10:28 CDT, Once, Stat, 08/01/2014 10:28 CDT, PRN to keep oxygen saturation above 95%. Diagnostic Tests: EKG - Nurse/Rad (Order Processing): 08/01/2014 10:28 CDT, Once, Done, Current Location. Electrocardiogram:Time 08/01/2014 10:27:00, rate 75, normal sinus rhythm, QRS interval Left ventricular hypertrophy. Results review:Lab results : Lab View 08/01/2014 10:35 CDT Hgb 12.9 g/dL Hct 38.0 % WBC 9.0 x10(9)/L RBC 4.37 x10(12)/L MCV 87.0 fL RDW 12.3 % Platelet 287 x10(9)/L Neutro Absolute 6.14 10(9)/L Lymph Absolute 1.77 x10(9)/L Stevens Absolute 0.80 x10(9)/L Eos Absolute 0.27 x10(9)/L Baso Absolute 0.04 x10(9)/L Differential? Auto Sodium Lvl 135.8 mM/L Potassium Lvl 3.6 mmol/L Chloride 102 mmol/L CO2 23.7 mmol/L AGAP 14 mmol/L Glucose Lvl 104 mg/dL Creatinine 1.14 mg/dL EGFR (MDRD) 46 mL/min/1.73m2 LOW EGFR (MDRD) 56 mL/min/1.73m2 LOW BUN 27 mg/dL HI Calcium Lvl 9.6 mg/dL Troponin-T <0.01 ng/mL . Chest X-Ray:01-Aug-2014 10:48:00 Exam: Chest-- 2 Views Indications: Chest pain 01-Aug-2014 10:51 CA EXAM: Chest 2 views IMPRESSION: Chest is unchanged since 04/26/2013. Negative heart and lungs. Hypertrophic changes thoracolumbar spine. Rivas Greer MD. [phone] 01-Aug-2014 10:51 . Impression and Plan Diagnosis Costochondritis (Discharge, Medical) Complaint of Chest pain (Reason For Visit, Medical) Chest pain (Reason For Visit, Emergency medicine, Medical) Plan Condition: Improved. Disposition: Medically cleared, Discharged: Time 08/01/2014 11:47:00, to home. Patient was given the following educational materials: CHEST WALL PAIN, Costochondritis, CHEST WALL PAIN, Costochondritis, CHEST WALL PAIN, Costochondritis. Follow up with: MAGO GOLDEN Within 1 - 2 weeks f/u chest pain ED. HTN. Counseled: Patient, Family, Discussed results and plan with patient in detail and they expressed understanding and agreement.. Orders: Launch Orders Patient Care: Discharge ED Patient (Order Processing): 08/01/2014 11:48 CDT, Once. Electronically Signed By: DIONY MAK III, MD On: 08/03/2014 05:15 PM Modified by and Electronically Signed by: DIONY MAK III, MD On: 08/01/2014 10:34 AM Source: [facility] POWERCHART Document Id: {[id number]} Jessie Onofre, R.N. - 08/01/2014 10:23 AM CDT ED Triage Assessment Document Has Been Updated ED Triage Assessment Entered On: 08/01/2014 10:31 CDT Performed On: 08/01/2014 10:23 CDT by JESSIE ONOFRE RN Reason For Visit (As Of: 08/01/2014 10:44:03 CDT) Problems(Active) Aortic insufficiency (ICD-9-CM :424.1 ) Name of Problem: Aortic insufficiency ; Onset Date: 10/20/2011 ; Recorder: BATSHEVA NEWBY RN; Confirmation: Confirmed ; Classification: Nursing ; Code: 424.1; Contributor System: [employer] ; Last Updated: 12/06/2011 10:38 CDT ; Life Cycle Date: 11/01/2011 ; Life Cycle Status: Active ; Responsible Provider: BATSHEVA NEWBY RN; Vocabulary: ICD-9-CM ; Comments: 12/06/2011 8:34 - RUBENS AGUILAR LIGHT 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 unknown date of dx 12/06/2011 10:38 - HUBER CORRALES DNP, SCHOOL BUS INSPECTOR stress test Gout NOS (ICD-9-CM :274.9 ) [...] Classification: Medical ; Code: 401.9 ; Contributor System:[employer] ; Last Updated: 10/18/2011 11:58 CDT ; Life Cycle Date: 11/09/2010 ; Life Cycle Status: Active ; Responsible Provider: MAY DAVIDSON LPN; Vocabulary: ICD-9-CM Pure Hypercholesterolemia (ICD-9-CM :272.0 ) Name of Problem: Pure Hypercholesterolemia ; Onset Date: 11/13/2001 ; Confirmation: Confirmed ; Classification: Medical ; Code: 272.0 ; Contributor System: [facility]_H[facility]_PR_UPLOAD ; Last Updated: 06/01/2013 18:11 CDT ; Life Cycle Status: Active ; Vocabulary: ICD-9-CM ; Comments: - Pure hypercholesterolemia Diagnoses(Active) Chest pain Date: 08/01/2014 ; Diagnosis Type: Reason For Visit ; Confirmation: Complaint of ; Clinical Dx: Chest pain ; Classification: Medical ; Clinical Service: Non-Specified ; Code: PNED ; Probability: 0 ; Diagnosis Code: [id number] Chest pain Date: 08/01/2014 ; Diagnosis Type: Reason For Visit ; Confirmation: Confirmed ; Clinical Dx: Chest pain ; Classification: Medical ; Clinical Service: Emergency medicine ; Code: PNED ; Probability: 0 ; Diagnosis Code: [id number] Triage Chief Complaint Description : Pt presents to ED c/o chest pain. Started gradually last night. Left sided achiness radiates to left shoulder. 08/13 Information Given By : Patient Accompanied By : Other: daughter in law Mode of Arrival ED : Private vehicle Track : Medical Languages : Luxembourgish Vital Signs Assessed : Yes Treatments Prior to Arrival : Aspirin Is Patient Female and 13-50 no hysterectomy : No BOOM JESSIE Stephany NAVARRO - 08/01/2014 10:23 CDT Vital Signs Temperature Core : 37.0 DegC(Converted to: 98.6 DegF) Peripheral Pulse Rate : 80 /min Respiratory Rate : 18 /min Systolic Blood Pressure : 170 mmHg (>HHI) Diastolic Blood Pressure : 67 mmHg NIBP Mean : 101 mmHg BP Location : Left upper extremity SpO2 : 96 % Oxygen Therapy : Room air PORFIRIO ONOFREE Stephany NAVARRO - 08/01/2014 10:23 CDT Pain Assessment Pain Symptoms : Yes BOOM JESSIE Stephany NAVARRO - 08/01/2014 10:39 CDT Pain Scale Pain Scale Verbal 0-10 : Open PORFIRIO ONOFREE Stephany NAVARRO - 08/01/2014 10:39 CDT Pain Pain Assessment Grid Pain 1 Location : Chest Laterality : Left Intensity : 6 Quality : Aching Pain Radiation : Yes JESSIE ONOFRE RAMON - 08/01/2014 10:39 CDT ED Physician Notification Time ED Physician Notification Time : 08/01/2014 10:43 CDT JESSIE ONOFRE RN - 08/01/2014 10:39 CDT QUIN QUIN Level 1 : No QUIN Level 2 : Yes JESSIE ONOFRE RN - 08/01/2014 10:39 CDT DCP GENERIC CODE Tracking Acuity : 3 -Urgent Tracking Group : [facility] ED BOOM JESSIE M RN - 08/01/2014 10:39 CDT Allergy (As Of: 08/01/2014 10:44:03 CDT) Allergies (Active) No Known Medication Allergies Comments: Comment 1: NO KNOWN DRUG ALLERGIES ; Created By: Contributor_system [facility]_HX_ALRG_SYS; Reaction Status: Active ; Category: Drug ; Substance: No Known Medication Allergies ; Type: Unknown ; Updated By: Contributor_system [facility]_HX_ALRG_SYS; Reviewed Date: 08/01/2014 10:26 CDT ID Screen Drug Resistant Organism : No Travel Within Last 21 Days : No Contact with someone with Ebola : No JESSIE ONOFRE RN - 08/01/2014 10:39 CDT Source: [employer] Document Id: [id number] CDT!45 documented in this encounter Miscellaneous Notes Miscellaneous - Conversion, Historical Provider Ser - 08/01/2014 12:05 PM CDT Coding Summary-Paper Based CODING DATE: 08/07/2014 FINAL [place] [facility] STATUS: * Discharged to Home or Self Care PAYOR: Medicare ADMIT DX: 786.50 Unspecified Chest Pain REASON FOR VISIT DX: 786.50 Unspecified Chest Pain FINAL DX: 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 However, the narrative phrase printed from the coding software may appear abbreviated, or result in slightly different terminology. Coded By: CHEMO AZEVEDO Date Saved: 08/07/2014 01:11 pm Source: [employer] Document Id: [id number] Miscellaneous - Fawad Das, R.N. - 08/01/2014 11:56 AM CDT Valuables/Belongings Valuables/Belongings Entered On: 08/01/2014 11:57 CDT Performed On: 08/01/2014 11:56 CDT by FAWAD DAS RN Valuables/Belongings Home Medication Disposition : None brought in with patient FAWAD DAS RN - 08/01/2014 11:56 CDT Source: [employer] Document Id: [id number] CDT!3 Miscellaneous - Fawad Das R.N. - 08/01/2014 10:17 AM CDT Facility Charge Ticket 2.0 11.0 DX Facility Charge Ticket 2.0 11.0 DX Entered On: 08/01/2014 11:57 CDT Performed On: 08/01/2014 10:17 CDT by FAWAD DAS RN Facility Charge Ticket 2.0 11.0 DX ED Other Charges : Standard ED Encounter TVL Level Translated RTF : Chest pain, Chest pain TVL:5 TVL Level for Facility Charge Ticket : Level 5 Arrival Mode Calc : 129 Mode of Arrival ED : Private vehicle [facility] Mode of Arrival Interpreted : Standard [facility] Process Management : None Order Management RTF : Laboratory Basic Metabolic Panel,08/01/14 10:28,DIONY MAK III, MD Completed CBC (includes Auto Differential),08/01/14 10:28,DIONY MAK III, MD Completed Troponin T,08/01/14 10:28,DIONY MAK III, MD Completed Automated Diff-5 Part,08/01/14 10:40,DIONY MAK III, MD Completed Xray XR Chest 2 Views,08/01/14 10:28,DIONY MAK III, MD Completed EKG / Respiratory / Ancillary Oxygen - ED,08/01/14 10:28,DIONY MAK III, MD Ordered [facility]x Order Management : EKG, RT, Ancillary Services, Lab tests, Xray - plain films 30 Minutes Critical Care : No Nursing Notes RTF : Triage Forms ED Triage Assessment,08/01/14 10:23,JESSIE ONOFRE RN Nursing Notes ED Primary Assessment,08/01/14 11:38,JESSIE ONOFRE ARCHITECTURE FACULTY MEMBER Nurse Reassess,08/01/14 11:26,JESSIE ONOFRE ARCHITECTURE FACULTY MEMBER Nurse Reassess,08/01/14 11:01,RUIZ VILCHIS ARCHITECTURE FACULTY MEMBER Pain Assessment,08/01/14 11:56,FAWAD DAS RN [facility] Nursing Assessment : Triage and 1-2 nursing assessments [facility] Disposition : Discharge Disposition RTF : discharge [facility] Total Points with Diagnosis Control : 14 [facility]x Visit Level : 94156 Level 5 Treatments Prior to Arrival : Aspirin FAWAD DAS RN - 08/01/2014 11:57 CDT Source: [facility] POWERCHART Document Id: [id number] CDT!19 documented in this encounter Plan of Treatment Not on filedocumented as of this encounter Procedures Procedure Name Priority Date/Time Associated Diagnosis Comme nts AUTOMATED Routine 08/01/2014 10:35 AM Results for this DIFFERENTIAL, B CDT procedure ar e in the results section. CBC WITH Routine 08/01/2014 10:35 AM Results for this DIFFERENTIAL, B CDT procedure ar e in the results section. TROPONIN T, 5TH Routine 08/01/2014 10:35 AM Resul ts for this GEN, P CDT procedure are i n the results section. BASIC METABOLIC Routine 08/01/2014 10:35 AM Resul ts for this PANEL, S/P CDT procedure are i n the results section. documented in this encounter Results Automated Differential (08/01/2014 10:35 AM CDT) athologist Signature Absolute 6.14 1.70 - POWERCHART Neutrophils 7.00 109L Lymphocytes 1.77 0.90 - POWERCHART 2.90 X109L Monocytes 0.80 0.30 - POWERCHART 0.90 X109L Eosinophils 0.27 0.05 - POWERCHART 0.50 X109L Absolute 0.04 0.00 - POWERCHART Basophil 0.30 X109L Specimen Anatomical Collection Method Collection Time Receive d Time (Source) Location / / Volume Laterality Blood 08/01/2014 10:35 08/01/2014 AM CDT 10:35 AM CDT Diony Mak III, M.D. LAB BLOOD ADD-ON Performing Organization Address City/State/ZIP Code Phon e Number POWERCHART CBC with Differential (08/01/2014 10:35 AM CDT) athologist Signature Leukocytes 9.0 3.4 - 10.5 POWERCHART X109L Erythrocytes 4.37 3.90 - POWERCHART 5.03 N3005A Hemoglobin 12.9 12.0 - POWERCHART 15.5 GDL Hematocrit 38.0 34.9 - POWERCHART 44.5 MCV 87.0 82.0 - POWERCHART 98.0 FL HX RDW 12.3 11.9 - POWERCHART 15.5 Platelet Count 287 150 - 450 POWERCHART X109L HXDifferential? Auto POWERCHART Specimen (Source) Anatomical Collection Method Collection Time Re ceived Time Location / / Volume Laterality Blood 08/01/2014 10:35 AM CDT Diony Mak III, M.D. LAB BLOOD ADD-ON Performing Organization Address City/State/ZIP Code Phon e Number POWERCHART Troponin T (08/01/2014 10:35 AM CDT) P athologist Signature Troponin T, S <0.01 <=0.01 NGML POWERCHART Comment: 0.03 - 0.1 ng/mL Intermediate Z one Specimen (Source) Anatomical Collection Method Collection Time Re ceived Time Location / / Volume Laterality Blood 08/01/2014 10:35 AM CDT Diony Mak III, M.D. LAB BLOOD ADD-ON Performing Organization Address City/State/ZIP Code Phon e Number POWERCHART (ABNORMAL) BMP (Basic Metabolic Panel) (08/01/2014 10:35 AM CDT) P athologist Signature Anion Gap 14 10 - 20 POWERCHART MMOLL BUN (Blood Urea 27 (H) 7 - 18 POWERCHART Nitrogen), S MGDL Chloride, S 102 98 - 107 POWERCHART MMOLL CO2 Total 23.7 23.0 - POWERCHART 29.0 MMOLL Creatinine 1.14 0.60 - POWERCHART 1.30 MGDL Glucose 104 70 - 139 POWERCHART MGDL Calcium, Total, 9.6 8.8 - 10.2 POWERCHART S MGDL Sodium, S 135.8 135.0 - POWERCHART 145.0 MML Potassium, S 3.6 3.6 - 4.8 POWERCHART MMOLL HXeGFR (MDRD) 46 (L) >=60 POWERCHART [id number] eGFR 56 (L) >=60 POWERCHART Black/ [id number] Burundian Specimen (Source) Anatomical Collection Method Collection Time Re ceived Time Location / / Volume Laterality Blood 08/01/2014 10:35 AM CDT Diony W Aubree III, M.D. LAB BLOOD ADD-ON Performing Organization Address City/State/ZIP Code Phon e Number POWERCHART documented in this encounter Visit Diagnoses Not on filedocumented in this encounter
--- OUTSIDE RECORDS SUMMARY | 2022-01-04 09:40 | XMS_ITS | Encounter Summary ---
:1935 Author Organization [facility] Address [address] [place] [address] Care Team Providers Name Role Phone Unavailable Primary Care Provider Unavailable Encounter Details Date Type Department Care Team Description 05/14/2013 Hospital Encounter HX [facility] [address] [id number] (Wo rk) Social History Tobacco Use Types Packs/Day Years Used Date Smoking Tobacco: Never Assessed Sex Assigned at Date Recorded Not on file documented as of this encounter Last Filed Vital Signs Vital Sign Reading Time Taken Comments Blood Pressure 130/60 05/14/2013 7:24 AM CDT Pulse 91 05/14/2013 7:18 AM CDT Temperature - - Respiratory Rate 14 05/14/2013 7:18 AM CDT Oxygen Saturation - - Inhaled Oxygen Concentration - - Weight 59.1 kg (130 lb 4.7 oz) 05/14/2013 7:18 AM CDT Height - - Body Mass Index 22.24 04/29/2013 11:27 AM MAYONNAISE MIXER documented in this encounter Medications at Time of Discharge Medication Sig Dispensed Refills Start Date End Date CALCIUM CARB/VIT Take by mouth daily. 0 1 01/21/2019 D3/MINERALS (CALCIUM-VITAMIN D ORAL) [id number] Take 1 capsule by 0 011 05/30/2018 oil 1,400 mg/5 mL liquid mouth daily. documented as of this encounter Progress Notes Aleisha Hermosillo M.D. - 05/14/2013 7:15 AM CDT [id number] CHIEF COMPLAINT/REASON FOR VISIT Skin lesion. HISTORY OF PRESENT ILLNESS Janeth is a 78-year-old female who comes in today stating that she has had a spot on her forehead for about 1 year. Previously it has been frozen off. She states since then it has been rough and a little bit pink but not flaky. Now for the past week it turned red and is almost more scabbed. She was worried about it so she thought she would come in and have it looked at. She has never had anyhistory of skin cancer in the past. MEDICATIONS Reconciled. No changes. ALLERGIES No known drug allergies. SYSTEMS REVIEW Review of systems as per history of present illness. VITAL SIGNS Temperature 36.2, pulse is 91beats per minute, respiratory rate is 14 breaths per minute, blood pressure is 134/68 and recheck is 130/60. Oxygen saturation is 98% on room air. Weight is 59.1 kg. PHYSICAL EXAMINATION GENERAL: The patient is alert and oriented, in no acute distress. SKIN: Patients upper forehead close to her hairline, she has a and 5 mm x 2 to 3 mm scabbed lesion. On her right upper forehead she has 2 small areas that are approximately 2 to 3 mm across that are skin colored and rough. I do not see any other concerning lesions. PROCEDURE: Cryotherapy. We discussed the procedure with the patient including freezing these 2 spots with 3 cycles of cryotherapy allowing a full thaw in between. We discussed that it could be red and blister afterwards. It will also be painful. Patient voices understanding. Verbal consent was obtained. After this both spotswere frozen with 3 cycles of cryotherapy without difficulty. IMPRESSION/REPORT/PLAN Actinic keratoses. We discussed that these could be precancerous lesions and therefore we opted to perform cryotherapy today. Patient will continue to monitor. PATIENT EDUCATION: Ready to learn No apparent learning barriers were identified Learning preferences include listening Explained diagnosis and treatment plan Patient/Child/Caregiver expressed understanding of the content Aleisha Carroll M.D./leida Electronically Signed By: ALEISHA GOLDEN MD On: 05/16/2013 09:52 PM Source: [facility] MHSDOLBEYNONRADSYS Document Id: [id number] documented in this encounter Miscellaneous Notes Miscellaneous - Aleisha Hermosillo M.D. - 05/14/2013 7:38 AM CDT Ambulatory Patient Summary [id number] [place], [place] [id number] Visit Information Name: JANETH RANGEL [facility] Number: [id number] Current Date: 05/14/2013 07:38:39 Physicians Attending Provider: ALEISHA GOLDEN MD Primary Care Provider: ALEISHA GOLDEN MD CLAIRE [...] 1 tab, Oral, once a day indomethacin (indomethacin 50 mg oral capsule) 1 cap, Oral, [...] the Following Medications: Medication list as of 05-14-13 07:38 Attention: If you have any medications at home that are not on this list, DO NOT take them until youcontact your provider for clarification. Give a copy of your medication list to your primary care provider. Update your medication list any time medications or doses are changed and carry your medication list at all times in case of emergency. Your Allergies & Intolerances Substance Reaction Symptoms [...] appointment detail needed. Your Goals/Additional instructions: Source: [employer] Document Id: [id number] Miscellaneous - Aleisha Hermosillo M.D. - 05/14/2013 7:38 AM CDT Ambulatory Discharge Medication List [address] [id number] Visit Information Name: JANETH RANGEL [facility] Number: [id number] Visit Date: 05/14/2013 07:38:36 Attending Provider: ALEISHA GOLDEN MD Primary Care [...] 1 tab, Oral, once a day indomethacin (indomethacin 50 mg oral capsule) 1 cap, Oral, [...] the Following Medications: Medication list as of 05-14-13 07:38 Attention: If you have any medications at home that are not on this list, DO NOT take them until youcontact your provider for clarification. Give a copy of your medication list to your primary care provider. Update your medication list any time medications or doses are changed and carry your medication list at all times in case of emergency. Additional Information: [facility] POWERCHART Document Id: [id number] Miscellaneous - Nidhi Cartwright, L.P.N. - 05/14/2013 7:24 AM CDT Ambulatory Vitals Height Weight Ambulatory Vitals Height Weight Entered On: 05/14/2013 7:24 CDT Performed On: 05/14/2013 7:24 CDT by NIDHI CARTWRIGHT LPN RT Vitals/Ht/Wt Systolic Blood Pressure : 130 mmHg Diastolic Blood Pressure : 60 mmHg NIBP Mean : 83 mmHg BP Location : Right upper extremity Blood Pressure Cuff Size : Regular NIDHI CARTWRIGHT LPN, RT - 05/14/2013 7:24 CDT Source: [facility] POWERCHART Document Id: [id number] CDT!7 Miscellaneous - Nidhi Cartwright L.P.N. - 05/14/2013 7:18 AM CDT Adult Fireperson Intake/History Adult Fireperson Intake/History Entered On: 05/14/2013 7:22 CDT Performed On: 05/14/2013 7:18 CDT by NIDHI CARTWRIGHT LPN, RT Intake Chief Complaint : concerned about skin lesion on forehead Temperature Core : 36.2 DegC(Converted to: 97.2 DegF) (LOW) Peripheral Pulse Rate : 91 /min Respiratory Rate : 14 /min Systolic Blood Pressure : 134 mmHg Diastolic Blood Pressure : 68 mmHg NIBP Mean : 90 mmHg BP Location : Right upper extremity Blood Pressure Cuff Size : Regular SpO2 : 98 % Oxygen Therapy : Room air Actual Weight : 59.1 kg(Converted to: 130 lb 5 oz) Weight Source : Standing scale Dosing Weight Clinic : 59.1 kg NIDHI CARTWRIGHT LPN, RT - 05/14/2013 7:18 CDT General Info Information Given By : Patient Preferred Communication Mode : Verbal Languages : Vietnamese NIDHI CARTWRIGHT LPN, RT - 05/14/2013 7:18 CDT Subjective Pain Symptoms : No NIDHI CARTWRIGHT LPN, RT - 05/14/2013 7:18 CDT Dependent Habits Tobacco Use/Currently Using : No Exposure to Tobacco Smoke : Care provider denies smoking in home Smoking Status : Never smoker NIDHI CARTWRIGHT LPN, RT - 05/14/2013 7:18 CDT Tobacco Use Grid Last Use : never NIDHI CARTWRIGHT LPN, RT - 05/14/2013 7:18 CDT Caffeine Use Grid Caffeine Use : Current Type : Coffee Frequency : Daily Amount : 2 NIDHI CARTWRIGHT LPN, RT - 05/14/2013 7:18 CDT Recreational Drug Use Grid Drug Use : None NIDHI CARTWRIGHT LPN, RT - 05/14/2013 7:18 CDT [facility] Document Id: [id number] CDT!38 documented in this encounter Plan of Treatment Not on filedocumented as of this encounter Visit Diagnoses Not on filedocumented in this encounter
--- OUTSIDE RECORDS SUMMARY | 2022-01-04 09:40 | XMS_ITS | Encounter Summary ---
:1935 Author Organization [facility] Address [address] [place] [address] Care Team Providers Name Role Phone Unavailable Primary Care Provider Unavailable Encounter Details Date Type Department Care Team Description 08/28/2013 Hospital Encounter HX [facility] Chhaya Berman M.D. [address] [place], [place] [address] (Wo rk) Social History Tobacco Use Types Packs/Day Years Used Date Smoking Tobacco: Never Assessed Sex Assigned at Date Recorded Not on file documented as of this encounter Last Filed Vital Signs Vital Sign Reading Time Taken Comments Blood Pressure 139/44 08/28/2013 10:16 AM CDT Pulse 54 08/28/2013 10:16 AM CDT Temperature - - Respiratory Rate 14 08/28/2013 9:59 AM CDT Oxygen Saturation - - Inhaled Oxygen Concentration - - Weight 59.5 kg (131 lb 2.8 oz) 08/28/2013 8:47 AM CDT Height 158 cm (5' 2.21) 08/28/2013 10:16 AM CDT Body Mass Index 23.83 08/28/2013 8:47 AM CDT documented in this encounter Discharge Summaries Myranda Ramires R.N. - 08/28/2013 10:08 AM CDT Hospital Discharge Instructions [facility] [address] [place] [address] Patient Discharge Instructions Name: MORGAN DUENAS Current Date: 08/28/2013 10:08:48 : 1935 12:00 AM [facility]: [id number] [facility] Number: [id number] Patient Address: [address] [facility] [id number] Patient Primary Care Provider: Name: MAGO GOLDEN MD Discharge Diagnosis: [facility] in [place] would like to thank you for allowing us to assist you withyour healthcare needs. The following includes patient education materials and information regarding your injury/illness. Comment: MORGAN DUENAS has been given the following list of follow-up instructions, medication list, and patient education materials: Follow-up Instructions Medications Medication/Strength How to Take Indications/Special Instructions/Comments/Notes for [...] capsule) 1 cap, Oral, once a day *omeprazole (omeprazole 20 mg oral delayed release tablet) 1 Tablet(s), Oral, once a day * You have let us know that you are not taking this medication as listed. Please talk with your primary care provider or the health care provider who prescribed the medication as soon as possible. Stop Taking the Following Medications: Medication list as of 08-28-13 10:08 Attention: If you have any medications at home that are not on this list, DO NOT take them until youcontact your provider for clarification. Give a copy of your medication list to your primary care provider. Update your medication list any time medications or doses are changed and carry your medication list at all times in case of emergency. Comment: Electronically Signed By: Signed On: Your Upcoming Appointments Date Time Location Reason Provider No Appointments found Rajinder CLAIRE MORGAN JONIER , have received the attached patient education materials/instructions andhave verbalized understanding: Patient Signature Date Time Care Provider Signature Date Time [address] Discharge Instructions (Adults) Endoscopy/Colonoscopy/Flexible Sigmoidoscopy Post-Procedure Discharge Instructions Date: Tuesday, August 20, 2013 Procedure: Colonoscopy Person(s) taught: Patient Your procedure today showed: mild rectal inflammation and possible polyp. You have just had an endoscopic procedure. Your follow-up instructions are indicated below. Do not drive or use heavy equipment for 24 hours. The drugs you were given may cause dizziness or drowsiness and slower reaction time You may resume eating, drinking, usual medications at: right away You may resume exercise tomorrow, Do not drink alcohol for 8 hours. It interacts with the medicationused, For safety precautions, have an adult stay with you five hours post-procedure, The physician or nurse will contact you by letter in one week Repeat exam should be performed in - to be determined WHAT TO WATCH FOR: Problems rarely occur after the exam; however, it is important for you to be aware of the early signs of a possible complication. Immediately call your doctor or the Emergency Department ([phone])if you have any questions OR notice any of the followin. Unusual pain or difficulty in swallowing (EGD Only). 2. Unusual abdominal or chest pain. 3. Coughing up blood (EGD Only). 4. Passing blood clots from the rectum. 5. Temperature above 100.6 degrees F (37.5 C), fever, or chills. 6. Shortness of breath. 7. Swelling or drainage from you IV site. OTHER SPECIFIC INSTRUCTIONS: n Source: [facility] POWERCHART Document Id: [id number] Myranda Ramires R.N. - 08/28/2013 10:08 AM CDT Hospital Discharge Medication List [address] [address] Discharge Medication List Name: MORGAN DUENAS Current Date: 08/28/2013 10:08:46 : 1935 12:00 AM [facility] Number: [id number] Patient Address: [address] [place] [phone] Patient Primary Care Provider: Name: MAGO GOLDEN MD Discharge Diagnosis: [facility] in [place] would like to thank you for allowing us to assist you withyour healthcare needs. The following includes patient education materials and information regarding your injury/illness. Medications Medication/Strength How to Take Indications/Special Instructions/Comments/Notes for [...] capsule) 1 cap, Oral, once a day *omeprazole (omeprazole 20 mg oral delayed release tablet) 1 Tablet(s), Oral, once a day * You have let us know that you are not taking this medication as listed. Please talk with your primary care provider or the health care provider who prescribed the medication as soon as possible. Stop Taking the Following Medications: Medication list as of 08-28-13 10:08 Attention: If you have any medications at home that are not on this list, DO NOT take them until youcontact your provider for clarification. Give a copy of your medication list to your primary care provider. Update your medication list any time medications or doses are changed and carry your medication list at all times in case of emergency. Comment: Electronically Signed By: Signed On: Source: [facility] POWERCHART Document Id: [id number] documented in this encounter Medications at Time of Discharge Medication Sig Dispensed Refills Start Date End Date CALCIUM CARB/VIT Take by mouth daily. 0 1 01/21/2019 D3/MINERALS (CALCIUM-VITAMIN D ORAL) [id number] Take 1 capsule by 0 011 05/30/2018 oil 1,400 mg/5 mL liquid mouth daily. documented as of this encounter Procedure Notes Evonne Langford R.N. - 08/28/2013 8:47 AM CDT Preprocedure Checklist Document Has Been Updated Preprocedure Checklist Entered On: 08/28/2013 8:55 CDT Performed On: 08/28/2013 8:47 CDT by EVONNE LANGFORD RN Checklist Last Fluid Intake : 08/28/2013 6:00 CDT Last Food Intake : 08/27/2013 7:00 CDT Beta Sara Last Dose : 08/28/2013 8:45 CDT EVONNE LANGFORD RN - 08/28/2013 8:47 CDT Surgery Prep Grid Contacts/Glasses Removed : NA Dentures Removed : NA Hairpins/Hairpiecies Removed : NA Hearing Aid Removed : NA Home Prep Complete : Yes Jewelry/Piercing Removed : NA Makeup/Nail Japanese Removed : NA Oral Hygiene : NA Preop Scrub AM of Surgery : NA Preop Scrub Night Prior to Surgery : NA Prosthesis Removed : NA Surgical Prep Verified : NA Tampon Removed : NA Wearing Patient Gown : Yes Voided ruby on rails engineer to procedure : Yes EVONNE LANGFORD RN - 08/28/2013 8:47 CDT Surgical Preparation : N/A EVONNE LANGFORD RN - 08/28/2013 8:47 CDT Patient Rights Grid Blood Consent Signed : NA Surgical/Procedure Consent Signed : Yes EVONNE LANGFORD RN - 08/28/2013 8:47 CDT Family Location : we will call patients spouse post procedure EVONNE LANGFORD RN - 08/28/2013 8:47 CDT Checklist II Patient Safety Grid Allergy Band on and Verified : NA Anesthesia Consult : Yes Band on for Limb Alert : NA Blood Band on and Verified : NA Current ECG in Medical Record : Yes Current H&P in Medical Record : Yes Implants Verified : NA Medication Reconciliation on Chart : Yes Pacemaker/AICD Verified : NA ID Band on and Verified : Yes Preop Medications Sent With Patient : Yes Relevant Images in Medical Record : NA Review of Labs : Yes Procedure/Site Verified by Patient/Family : Yes Procedure/Site Verified by RN : Yes Procedure/Site Verified by Physician : Yes Type & Screen/Type & Cross Completed : EVONNE DALEY RN - 08/28/2013 8:47 CDT RN Who Verified Site : MYRANDA RAMIRES RN Physician Who Verified Site : CHHAYA GORDON MD, ANNE M RN - 08/28/2013 8:47 CDT INGRIS Screening Known Obstructive Sleep Apnea : No - NOT diagnosed with INGRIS EVONNE LANGFORD RN - 08/28/2013 8:47 CDT INGRIS Assessment Do you have high blood pressure or have you been told to take medication for high blood pressure? : Yes Frequency of Snoring HTN : Never Frequency of Gasping, Choking, Snorting HTN : Never Total Number of Historical Features HTN : 0 Neck Circumference - INGRIS - HTN : 32/33 Total Sleep Apnea Clinical Score HTN Calc : 1 EVONNE LANGFORD RN - 08/28/2013 8:47 CDT Valuables/Belongings Valuables/Belongings Grid Valuables at Bedside Clothes, Patient Valuables : Pants, Shirt, Undergarments EVONNE LANGFORD RN - 08/28/2013 8:47 CDT Home Medication Disposition : None brought in with patient EVONNE LANGFORD RN - 08/28/2013 8:47 CDT Education Preprocedure Education Grid Procedure Type : Colonoscopy with possible polypectomy and or biopsy Education Topics : Anesthesia/Sedation, Deep breathing, Family instructions, Herbs/Supplement instructions, Incentive spirometry, Infection Control Processes, Medication instructions, Pain management, Patient rights and responsibilities, Plan of care, Preprocedure diet, Preprocedure tests/labs, Respiratory care, Tubes/Drains/IV's, Turn/Cough/Deep breathing Individuals Taught : Patient Barriers to Learning : None evident Teaching Method : Explanation Teaching Evaluation : Able to teach back, Verbalizes understanding EVONNE LANGFORD RN - 08/28/2013 8:47 CDT Preop Holding Mode of Arrival : Ambulatory Preoperative Orders Complete : Yes EVONNE LANGFORD RN - 08/28/2013 8:47 CDT Advance Directive Advanced Directives : No Advance Directive Additional Information : No EVONNE LANGFORD RN - 08/28/2013 8:47 CDT Vital Signs Temperature Core : 36.4 DegC(Converted to: 97.5 DegF) (LOW) Peripheral Pulse Rate : 70 /min Respiratory Rate : 16 /min Systolic Blood Pressure : 136 mmHg Diastolic Blood Pressure : 50 mmHg (LOW) NIBP Mean : 79 mmHg BP Location : Right upper extremity SpO2 : 95 % Oxygen Therapy : Room air Height : 158 cm(Converted to: 5 ft 2 inch(es)) Actual Weight : 59.5 kg Actual Weight Conversion to Pounds : 130.9 lb Body Mass Index : 23.83 kg/m2 EVONNE LANGFORD RN - 08/28/2013 8:47 CDT Allergy (As Of: 08/28/2013 08:55:55 CDT) Allergies (Active) No Known Medication Allergies Comments: Comment 1: NO KNOWN DRUG ALLERGIES ; Created By: Contributor_systemSHELDON_HX_ALRG_SYS; Reaction Status: Active ; Category: Drug ; Substance: No Known Medication Allergies ; Type: Unknown ; Updated By: Contributor_systemSHELDON_HX_ALRG_SYS; Reviewed Date: 08/21/2013 14:22 CDT [facility] Document Id: [id number] CDT!90 Chhaya Gordon M.D. - 08/28/2013 12:00 AM CDT HGICOL PREOPERATIVE DIAGNOSIS Rectal bleeding. POSTOPERATIVE DIAGNOSIS 1. Mild proctitis. 2. Possible polyp. PROCEDURE PERFORMED Colonoscopy with biopsy. SURGEON Dr. Chhaya Gordon. ANESTHESIA MAC. INDICATIONS A 78-year-old female, referred for colonoscopy because of rectal bleeding, 1 episode. A discussion was held with the patient regarding the details of the diagnosis, and the risks, benefits, and alternatives to colonoscopy and the possibility of biopsy and/or polypectomy. She wished to proceed. DETAILS OF PROCEDURE Patient was brought to the endoscopy suite, placed in left lateral decubitus position, a time-out was then conducted. She was thereafter induced under deep sedation by the infection control manager. A digital rectalexamination was then performed. The videocolonoscope was inserted and advanced through the colon to the cecum confirmed by the usual anatomic landmarks. The scope was then withdrawn slowly and circumferentially visualizing the mucosa on the way out. Cold biopsy forceps was used to take samples of whatappeared to be a small polyp in the rectum, and some adjacent mucosa that looked mildly irritated. This may have been prep- related. Scope was retroflexed in the rectum and then straightened and withdraw n. Patient tolerated the procedure well. FINDINGS 1. Quality of the prep was good. 2. Normal colon. 3. Perhaps mild proctitis versus prep-related change and a possible small pale polyp. 4. No significant internal hemorrhoids. IMPRESSION/REPORT/PLAN No specific findings were noted today to definitively explain the patient's bleeding but no significant pathology was noted either. We will await the results of the biopsies. Chhaya Gordon M.D./dayanna cc: Amy Duenas P.A.-C. Electronically Signed By: CHHAYA GORDON MD On: 08/28/2013 04:44 PM Source: [facility] MHSDOLBEYNONRADSYS Document Id: [id number] documented in this encounter Nursing Notes Evonne Langford R.N. - 08/28/2013 8:58 AM CDT Day Surgery Admission History/Asmt Adult Document Has Been Updated Day Surgery Admission History/Asmt Adult Entered On: 08/28/2013 9:06 CDT Performed On: 08/28/2013 8:58 CDT by EVONNE LANGFORD RN General Info Preferred Name : morgan Admitted From : Non-Health Care Facility Point of Origin Mode of Arrival : Ambulatory Accompanied By : Alone Chief Complaint : blood in stool Preferred Communication Mode : Verbal Information Given By : Patient Languages : Mauritian EVONNE LANGFORD RN - 08/28/2013 8:58 CDT Allergy (As Of: 08/28/2013 09:06:33 CDT) Allergies (Active) No Known Medication Allergies Comments: Comment 1: NO KNOWN DRUG ALLERGIES ; Created By: Contributor_system, [facility]_HX_ALRG_SYS; Reaction Status: Active ; Category: Drug ; Substance: No Known Medication Allergies ; Type: Unknown ; Updated By: Contributor_system, [facility]_HX_ALRG_SYS; Reviewed Date: 08/21/2013 14:22 CDT Anesth/Transfusion Anesthesia/Transfusions : Prior anesthesia EVONNE LANGFORD RN - 08/28/2013 8:58 CDT ID Screen Drug Resistant Organism : No EVONNE LANGFORD RN - 08/28/2013 8:58 CDT Nutrition Nutrition Risk Factors by History Adult : None EVONNE LANGFORD RN - 08/28/2013 8:58 CDT Home Environment Current Daily Living Assistance : None EVONNE LANGFORD RN - 08/28/2013 8:58 CDT Dependent Habits Tobacco Use/Currently Using : No Exposure to Tobacco Smoke : Care provider denies smoking in home Smoking Status : Never smoker EVONNE LANGFORD RN - 08/28/2013 8:58 CDT Tobacco Use Grid Last Use : never EVONNE LANGFORD RN - 08/28/2013 8:58 CDT Caffeine Use Grid Caffeine Use : Current Type : Coffee Frequency : Daily Amount : 2 EVONNE LANGFORD RN - 08/28/2013 8:58 CDT Recreational Drug Use Grid Drug Use : None EVONNE LANGFORD RN - 08/28/2013 8:58 CDT Psychosocial Adult Domestic Abuse Concerns : None Orthodoxy Preference : No qualifying data available. EVONNE LANGFORD RN - 08/28/2013 8:58 CDT Advance Directive Advanced Directives : No Advance Directive Additional Information : No EVONNE LANGFORD RN - 08/28/2013 8:58 CDT Educ Needs Patient/Family Education Needs : Plan of care, Postoperative instructions, Preoperative instructions, Treatments/Procedures/Tests EVONNE LANGFORD RN - 08/28/2013 8:58 CDT Learning Style Preference Adult Grid Patient : Verbal explanation Family : None EVONNE LANGFROD RN - 08/28/2013 8:58 CDT Outpatient Assessment Procedural Respiratory : Respirations unlabored, Respiratory pattern regular, Breath sounds clear all lobes, No cough Procedural Cardiovascular : Heart rhythm regular, Skin color normal for ethnicity, Skin dry and warm Procedural Neurological : Alert, Oriented x 3, Gait steady, No swallowing difficulty/aspiration risk Procedural Gastrointestinal : Abdomen non-tender and soft, Bowel sounds all quadrants Procedural Genitourinary : Voiding, no difficulties Procedural Integumentary : Skin integrity intact Procedural Musculoskeletal : Activity tolerance without distress EVONNE LANGFORD RN - 08/28/2013 8:58 CDT Psycho/Emotional Pain Symptoms : No Affect/Behavior : Calm, Cooperative, Appropriate Feels Rested : Yes EVONNE LANGFORD RN - 08/28/2013 8:58 CDT Coping Grid Identifies effective strategies : Yes Uses effective strategies : Yes Reports increase in psychological comfort : Yes Indicates sense of control : Yes Stressors perceived within control : Yes Stable mood with appropriate affect : Yes Behaviors indicate use of coping mechanism : Yes Family supportive and involved in care : Yes Values/Beliefs incorporated appropriately : Yes EVONNE LANGFORD RN - 08/28/2013 8:58 CDT Safety Grid Vision, Hearing, Mobility Adequate to Meet Safety Needs : Yes EVONNE LANGFORD RN - 08/28/2013 8:58 CDT Peripheral IV Peripheral IV Assess/Intervention Grid Peripheral IV #1 IV Activity : Start Number of Attempts : 1 Date of Insertion : 08/28/2013 CDT IV Site : Hand Laterality : Right Catheter Size : 20 Catheter Type : Protective EVONNE LANGFORD RN - 08/28/2013 8:58 CDT Ej Sensory Perception Ej : No impairment Moisture Ej : Rarely moist Activity Ej : Walks frequently Mobility Ej : No limitations Nutrition Ej : Excellent Friction and Shear Ej : No apparent problem Ej Score : 23 EVONNE LANGFORD RN - 08/28/2013 8:58 CDT Hendrich II Fall Risk Confusion/Disorientation Hendrich : No Depression Fall Risk Hendrich : No Altered Elimination Fall Risk Hendrich : No Dizziness/Vertigo Fall Risk Hendrich : No Gender, Male Fall Risk Hendrich : No Prescribed Antiepileptics Hendrich : No Prescribed Benzodiazepines Hendrich : No Rising From Chair Fall Risk Hendrich : Able to rise in a single movement, no loss of balance with steps Fall Risk Score Hendrich II : 0 EVONNE LANGFORD RN - 08/28/2013 8:58 CDT DC Needs Anticipated Discharge Date : 08/28/2013 CDT Discharge To, Anticipated : Home with family care Needs Assistance with Transportation : Yes Needs Assistance at Home Upon Discharge : Yes EVONNE LANGFORD RN - 08/28/2013 8:58 CDT FLACC Face FLACC : No particular expression or smile Legs FLACC : Normal position or relaxed Activity FLACC : Lying quietly, normal position, moves easily Cry FLACC : No cry, awake or asleep Consolabillity FLACC : Content, relaxed FLACC Pain Scale Score : 0 EVONNE LANGFORD RN - 08/28/2013 8:58 CDT Integumentary Integumentary Patient Stated Symptoms : None Skin Turgor : Elastic Skin Integrity : Intact Mucous Membrane Color : [place] Mucous Membrane Description : Moist Skin Color : Normal for ethnicity Skin Description : Dry Skin Temperature : Warm EVONNE LANGFORD RN - 08/28/2013 8:58 CDT Source: [employer] Document Id: [id number]!118 Evonne Langford, R.N. - 08/28/2013 8:44 AM CDT Pneumonia Immunization Assessment Pneumonia Immunization Assessment Entered On: 08/28/2013 8:44 CDT Performed On: 08/28/2013 8:44 CDT by EVONNE LANGFORD RN Pneumonia Protocol Pneumococcal Vaccine Exclusions : Patient has received the vaccine after age of 65 Pneumococcal Exclusion Candidate Status : No EVONNE LANGFORD RN - 08/28/2013 8:44 CDT Source: [facility] POWERCHART Document Id: [id number]!4 documented in this encounter Miscellaneous Notes Miscellaneous - Chhaya Gordon M.D. - 09/17/2013 4:17 PM CDT Results Notification From: CHHAYA GORDON MD Sent: 09/17/2013 16:17:12 CDT ! Show up: 09/17/2013 16:17:12 CDT Subject: Results Notification Actions: Notify patient of results Reminder Comments: small hyperplastic polyp, no good explanation for bleed. repeat colonoscopy PRN only Results: Date Result Name Value 08/28/2013 09:50 Surg IV Accn-Cabrera [id number] 08/28/2013 09:50 Surg IV Addr-Cabrera See Comment 08/28/2013 09:50 Surg IV FnlDiag-Cabrera See Comment 08/28/2013 09:50 Surg IV Ref-Cabrera See Comment 08/28/2013 09:50 Surg IV SgnPath-Cabrera See Comment 08/28/2013 09:50 Surg IV Ts Desc-Cabrera See Comment Source: [facility] POWERCHART Document Id: [id number] Miscellaneous - Myranda Ramires RKaiNKai - 08/28/2013 10:16 AM CDT Adult Postprocedure Assessment Adult Postprocedure Assessment Entered On: 08/28/2013 10:22 CDT Performed On: 08/28/2013 10:16 CDT by MYRANDA RAMIRES RN Vital Signs Temperature Core : 36.0 DegC(Converted to: 96.8 DegF) (LOW) Peripheral Pulse Rate : 54 /min (LOW) Systolic Blood Pressure : 139 mmHg Diastolic Blood Pressure : 44 mmHg (<LLOW) NIBP Mean : 76 mmHg SpO2 : 99 % Oxygen Saturation Monitoring Frequency : Continuous Oxygen Therapy : Room air Height : 158 cm(Converted to: 5 ft 2 inch(es)) MYRANDA RAMIRES 08/28/2013 10:16 CDT General Level of Consciousness : Alert Orientation : Oriented x 3 Skin Color : Normal for ethnicity Skin Description : Dry Skin Temperature : Warm Pain Symptoms : No MYRANDA RAMIRES 08/28/2013 10:22 CDT FLACC Face FLACC : No particular expression or smile Legs FLACC : Normal position or relaxed Activity FLACC : Lying quietly, normal position, moves easily Cry FLACC : No cry, awake or asleep Consolabillity FLACC : Content, relaxed FLACC Pain Scale Score : 0 MYRANDA RAMIRES 08/28/2013 10:22 CDT Cardiovascular Heart Rhythm : Regular Nail Bed Color : [place] Capillary Refill : Less than 2 seconds MYRANDA RAMIRES 08/28/2013 10:22 CDT Respiratory Anesthesia Type : MAC Respiratory Pattern : Regular Respirations : Unlabored All Lobes Breath Sounds : Clear MYRANDA RAMIRES 08/28/2013 10:22 CDT Incentive Spirometry Cough and Deep Breathe : Done Spontaneous Cough : No MYRANDA RAMIRES 08/28/2013 10:22 CDT GI/ Nausea Symptoms : No Passing Flatus : No MYRANDA RAMIRES 08/28/2013 10:22 CDT Integumentary Skin Color : Normal for ethnicity Skin Description : Dry Skin Temperature : Warm MYRANDA RAMIRES 08/28/2013 10:22 CDT Peripheral IV Peripheral IV Assess/Intervention Grid Peripheral IV #1 IV Activity : Discontinue Number of Attempts : 1 Date of Insertion : 08/28/2013 CDT IV Site : Hand Laterality : Right Catheter Size : 20 Catheter Type : Protective Site Condition : No complications Drainage Description : None MYRANDA RAMIRES 08/28/2013 10:22 CDT Neurologic Swallowing Difficulty/Aspiration Risk : None Extremity Movement : Equal Facial Symmetry : Symmetric Characteristics of Speech : Appropriate for age MYRANDA RAMIRES 08/28/2013 10:22 CDT Activity Patient Position : Elevate head of bed 45 degrees Activity Status ADL : Up ad diogenes Activity Assistance : Independent MYRANDA RAMIRES 08/28/2013 10:22 CDT PARSAP Activity Status : Moves 4 extremities voluntarily or on command Dressing : None Respiratory Component : Able to deep breathe and cough freely Pain : Pain free Circulation Component : BP 20% of preanesthetic level Ambulation : Able to stand up and walk straight Consciousness : Fully awake Fasting and Feeding : Able to drink fluids Oxygen Saturation - Sedation : Can maintain > 92% on room air Urine Output, PARSAP : Not assessed PARSAP Score : 20 MYRANDA RAMIRES RN - 08/28/2013 10:22 CDT [place] Agitation Sedation Scale (RASS) : Alert and calm RASS Score : 0 MYRANDA RAMIRES RN - 08/28/2013 10:22 CDT Ej Sensory Perception Ej : No impairment Moisture Ej : Rarely moist Activity Ej : Walks frequently Mobility Ej : No limitations Nutrition Ej : Excellent Friction and Shear Ej : No apparent problem Ej Score : 23 MYRANDA RAMIRES RN - 08/28/2013 10:22 CDT Hendrich II Fall Risk Confusion/Disorientation Hendrich : No Depression Fall Risk Hendrich : No Altered Elimination Fall Risk Hendrich : No Dizziness/Vertigo Fall Risk Hendrich : No Gender, Male Fall Risk Hendrich : No Prescribed Antiepileptics Hendrich : No Prescribed Benzodiazepines Hendrich : Yes Rising From Chair Fall Risk Hendrich : Able to rise in a single movement, no loss of balance with steps Fall Risk Score Hendrich II : 1 MYRANDA RAMIRES RN - 08/28/2013 10:22 CDT Safe Patient Handling Safe Pt Handling Independent : Yes - No equipment needed Safe Pt Handling Equipment Rec : No Equipment Needed MYRANDA RAMIRES RN - 08/28/2013 10:22 CDT Education General Patient Education [employer] Topics : Printed materials Individuals Taught : Patient Barriers to Learning : None evident Teaching Method : Explanation, Printed materials Teaching Evaluation : Verbalizes understanding MYRANDA RAMIRES RN - 08/28/2013 10:22 CDT [facility] Document Id: [id number] CDT!109 Miscellaneous - Myranda Ramires R.N. - 08/28/2013 9:59 AM CDT Adult Postprocedure Assessment Adult Postprocedure Assessment Entered On: 08/28/2013 10:06 CDT Performed On: 08/28/2013 9:59 CDT by MYRANDA RAMIRES RN Vital Signs Temperature Core : 36.4 DegC(Converted to: 97.5 DegF) (LOW) Peripheral Pulse Rate : 66 /min Respiratory Rate : 14 /min Systolic Blood Pressure : 110 mmHg Diastolic Blood Pressure : 61 mmHg NIBP Mean : 77 mmHg BP Location : Left upper extremity SpO2 : 98 % Oxygen Saturation Monitoring Frequency : Continuous Oxygen Therapy : Room air Height : 158 cm(Converted to: 5 ft 2 inch(es)) MYRANDA RAMIRES 08/28/2013 9:59 CDT General Level of Consciousness : Alert Orientation : Oriented x 3 Skin Color : Normal for ethnicity Skin Description : Dry Skin Temperature : Warm Pain Symptoms : No MYRANDA RAMIRES 08/28/2013 9:59 CDT FLACC Face FLACC : No particular expression or smile Legs FLACC : Normal position or relaxed Activity FLACC : Lying quietly, normal position, moves easily Cry FLACC : No cry, awake or asleep Consolabillity FLACC : Content, relaxed FLACC Pain Scale Score : 0 MYRANDA RAMIRES 08/28/2013 9:59 CDT Cardiovascular Heart Rhythm : Regular Nail Bed Color : [place] Capillary Refill : Less than 2 seconds MYRANDA RAMIRES 08/28/2013 9:59 CDT Respiratory Anesthesia Type : MAC Respiratory Pattern : Regular Respirations : Unlabored All Lobes Breath Sounds : Clear MYRANDA RAMIRES 08/28/2013 9:59 CDT Incentive Spirometry Cough and Deep Breathe : Done Spontaneous Cough : No MYRANDA RAMIRES 08/28/2013 9:59 CDT GI/ Nausea Symptoms : No Passing Flatus : No MYRANDA RAMIRES 08/28/2013 9:59 CDT Integumentary Skin Color : Normal for ethnicity Skin Description : Dry Skin Temperature : Warm MYRANDA RAMIRES 08/28/2013 9:59 CDT Peripheral IV Peripheral IV Assess/Intervention Grid Peripheral IV #1 IV Activity : Assessment Number of Attempts : 1 Date of Insertion : 08/28/2013 CDT IV Site : Hand Laterality : Right Catheter Size : 20 Catheter Type : Protective Site Condition : No complications Drainage Description : None Infiltration Score : 0 Phlebitis Score : 0 Flow/ Patency : No complications MYRANDA RAMIRES RN 08/28/2013 9:59 CDT I&O Other Intake : 400 mL (Comment: I.V. fluids [MYRANDA RAMIRES - 08/28/2013 10:22 CDT] ) MYRANDA RAMIRES 08/28/2013 10:22 CDT Oral Intake : 240 mL MYRANDA RAMIRES 08/28/2013 9:59 CDT Nutrition Morning Snack : 100 % MYRANDA RAMIRES 08/28/2013 9:59 CDT Neurologic Swallowing Difficulty/Aspiration Risk : None Extremity Movement : Equal Facial Symmetry : Symmetric Characteristics of Speech : Appropriate for age MYRANDA RAMIRES 08/28/2013 9:59 CDT Activity Patient Position : Elevate head of bed 45 degrees Activity Status ADL : Up ad diogenes Activity Assistance : Independent MYRANDA RAMIRES 08/28/2013 9:59 CDT Modified Karen Activity : Moves 4 extremities voluntarily or on command Respiratory : Able to deep breathe and cough freely Circulation : BP +/- 20% of preprocedural level or not unusually high or low Consciousness : Fully awake O2 Saturation : O2 SAT at preprocedural level Karen l Score : 10 MYRANDA RAMIRES 08/28/2013 9:59 CDT PARSAP Activity Status : Moves 4 extremities voluntarily or on command Dressing : None Respiratory Component : Able to deep breathe and cough freely Pain : Pain free Circulation Component : BP 20% of preanesthetic level Ambulation : Able to stand up and walk straight Consciousness : Fully awake Fasting and Feeding : Able to drink fluids Oxygen Saturation - Sedation : Can maintain > 92% on room air Urine Output, PARSAP : Not assessed PARSAP Score : 20 MYRANDA RAMIRES 08/28/2013 9:59 CDT [place] Hayward Agitation Sedation Scale (RASS) : Alert and calm RASS Score : 0 MYRANDA RAMIRES 08/28/2013 9:59 CDT Ej Sensory Perception Ej : No impairment Moisture Ej : Rarely moist Activity Ej : Walks frequently Mobility Ej : No limitations Nutrition Ej : Excellent Friction and Shear Ej : No apparent problem Ej Score : 23 MYRANDA RAMIRES 08/28/2013 9:59 CDT Hendrich II Fall Risk Confusion/Disorientation Hendrich : No Depression Fall Risk Hendrich : No Altered Elimination Fall Risk Hendrich : No Dizziness/Vertigo Fall Risk Hendrich : No Gender, Male Fall Risk Hendrich : No Prescribed Antiepileptics Hendrich : No Prescribed Benzodiazepines Hendrich : Yes Rising From Chair Fall Risk Hendrich : Able to rise in a single movement, no loss of balance with steps Fall Risk Score Clarissa II : 1 MYRANDA RAMIRES RN - 08/28/2013 9:59 CDT Safe Patient Handling Safe Pt Handling Independent : Yes - No equipment needed Safe Pt Handling Equipment Rec : No Equipment Needed MYRANDA RAMIRES RN - 08/28/2013 9:59 CDT Education General Patient Education Powergrid Topics : Activity limitations/expectations, Diagnostic results, Discharge instructions/Medication list, Exercise, Importance of follow-up visits, Nutrition/Diet, Physical limitations, Plan of care, Printed materials, Safety, fall, Turn/Cough/Deep breathing, When to call health care provider Individuals Taught : Patient Barriers to Learning : None evident Teaching Method : Explanation, Printed materials Teaching Evaluation : Verbalizes understanding MYRANDA RAMIRES RN - 08/28/2013 9:59 CDT Source: [facility] PixelapseCHART Document Id: [id number] CDT!3 Miscellaneous - Evonne Langford RKaiNKai - 08/19/2013 3:01 PM CDT General Message Document Contains Addenda Addendum by AMY DUENAS on 20 August 2013 13:26:18 CDT From: AMY DUENAS To: EVONNE LANGFORD RN; Sent: 08/20/2013 13:26:18 CDT Subject: RE: General Message No. She is seeing Dr. Carroll tomorrow for a preop. From: EVONNE LANGFORD RN To: AMY DUENAS; Sent: 08/19/2013 15:01:17 CDT Subject: General Message Hill Reyes, Was your August 13 note intended to clear [place] for her Colonoscopy ? if so can you make an addendum as such? Evonne Source: [facility] POWERCHART Document Id: [id number] Electronically signed by Conversion, [facility] Underwear Hemmer [id number] at 08/02/2016 12:35 AM CDT documented in this encounter Plan of Treatment Not on filedocumented as of this encounter Procedures Procedure Name Priority Date/Time Associated Diagnosis Comme nts SURGICAL PATHOLOGY Routine 08/28/2013 9:50 AM Res ults for this CDT procedure are i n the results section. documented in this encounter Results Pathology Anatpath Wet Tissue (08/28/2013 9:50 AM CDT) [facility] Method Time Signature HXSurg IV [id number] POWERCHART [facility] HXSurg IV See Comment POWERCHART [facility] Comment: RESULT: Chhaya Gordon M.D. HXSurg IV [facility] See Comment POWERCHA RT Comment: [address] [address] SLIDE DISPOSITION: HXSurg IV [facility] See Comment POWER CHART Comment: [id number] A1 A. ??Received in formalin labeled with t he patient's name and and lab eled as rectum are three pale park irregular soft tissues, ranging from 0.2-0.5 cm in greatest dimension. Received in the same containe r are minute tissue fragments not likely to survive processi ng. The specimens are submitted en toto in cassette A1. Part A: ??Rectum (SR) 1 Rectum (SR) XRSR Path [facility] See Comment POWER CHART Comment: Rectum, polyp, biopsy: ??Hyperplastic po lyp. Participated in interpretation: ??Robert Fung M.D. [phone]. [facility] See Comment POWER CHART Comment: RESULT: 08/31/2013 20:34 Interpreted by: Rebeka Cook MD Report electronically signed by Rebeka Cook MD Transcribed by: [email or web address] 08/30/2013 16:46:53 Test Performed by: [facility] [address] [place] [address] [employer]: Armen winn III, M.D. Specimen (Source) Anatomical Collection Method Collection Time Re ceived Time Location / / Volume Laterality Tissue 08/28/2013 9:50 AM CDT Chhaya Gordon M.D. LAB SURG PATH ORDERABLES Performing Organization Address City/State/ZIP Code Phon e Number POWERCHART documented in this encounter Visit Diagnoses Not on filedocumented in this encounter
--- OUTSIDE RECORDS SUMMARY | 2022-01-04 09:40 | XMS_ITS | Encounter Summary ---
:1935 Author Organization [facility] Address [address] [place] [address] Care Team Providers Name Role Phone Unavailable Primary Care Provider Unavailable Encounter Details Date Type Department Care Team Description 02/24/2012 Hospital En[facility] Elena Oliveira D.O. [address] [place], [place] [address] (Wo rk) Social History Tobacco Use Types Packs/Day Years Used Date Smoking Tobacco: Never Assessed Sex Assigned at Date Recorded Not on file documented as of this encounter Medications at Time of Discharge Medication Sig Dispensed Refills Start Date End Date CALCIUM CARB/VIT Take by mouth daily. 0 1 01/21/2019 D3/MINERALS (CALCIUM-VITAMIN D ORAL) [id number]-[id number] Take 1 capsule by 0 011 05/30/2018 oil 1,400 mg/5 mL liquid mouth daily. documented as of this encounter Miscellaneous Notes Miscellaneous - Ivy Sanchez - 09/11/2013 8:20 AM CDT Custom Result Letter 11 September 2013 JANETH RANGEL [address] [facility] [phone] Dear JANETH CLAIRE, Our records indicate that you are due for your Colorectal Screening. Please contact your primary care team at [phone] to discuss the best screening option for you. If you have already made an appointment for this or have had the procedure done, please disregard this notice. We look forward to seeing you soon. From the office of . Serafin Zapata M.D., Gastroenterology Department. Sincerely, IVY GRIMM Electronic Signature Electronically Signed By: IVY GRIMM On: 11 September 2013 This document has images extracted. Source: [facility] POWERCHART Document Id: [id number] Telephone Encounter - Conversion, Historical Provider Ser - 02/24/2012 12:00 AM CST [id number] Colonoscopy is due? YES Past medical history has been reviewed? YES Patient has no history of uncontrolled diabetes? ( HGB A1C is less than 10) NO Patient is not on more than three psychiatric medications? NO Miralax and biscodyl prep ordered. Source: [facility] [id number] Document Id: [id number] documented in this encounter Plan of Treatment Not on filedocumented as of this encounter Visit Diagnoses Not on filedocumented in this encounter
--- OUTSIDE RECORDS SUMMARY | 2022-01-04 09:40 | XMS_ITS | Encounter Summary ---
:1935 Author Organization [facility] Address [address] [place] [address] Care Team Providers Name Role Phone Unavailable Primary Care Provider Unavailable Encounter Details Date Type Department Care Team Description 12/07/[address] [facility] May Mcfadden M.D. [address] [place] [phone] (Wo rk) Social History Tobacco Use Types Packs/Day Years Used Date Smoking Tobacco: Never Assessed Sex Assigned at Date Recorded Not on file documented as of this encounter Last Filed Vital Signs Vital Sign Reading Time Taken Comments Blood Pressure 130/72 12/07/2011 8:51 AM CDT Pulse 64 12/07/2011 8:51 AM CDT Temperature - - Respiratory Rate 18 12/07/2011 8:51 AM CDT Oxygen Saturation - - Inhaled Oxygen Concentration - - Weight 60.2 kg (132 lb 11.5 oz) 12/07/2011 8:51 AM CDT Height - - Body Mass Index 22.8 12/06/2011 10:03 AM CDT documented in this encounter Medications at Time of Discharge Medication Sig Dispensed Refills Start Date End Date CALCIUM CARB/VIT Take by mouth daily. 0 1 01/21/2019 D3/MINERALS (CALCIUM-VITAMIN D ORAL) [id number]-fish Take 1 capsule by 0 011 05/30/2018 oil 1,400 mg/5 mL liquid mouth daily. documented as of this encounter H&P Notes Marisol Mcfadden M.D. - 12/07/2011 8:43 AM CDT [id number] IMPRESSION/REPORT/PLAN Left foot pain, underlying gouty arthritis. Plan: The patient will continue with Keflex 500 mg four times a day for now and I ordered blood tests including a uric acid level. The patient is given a Medrol Dosepak as per directions on the pack. She is also given 80 mg of Depo-Medrol intramuscular today. Follow-up on Monday if not significantly better. A total of 30 minutes were spent with most of the time in face to face discussion. CHIEF COMPLAINT/REASON FOR VISIT The patient is complaining of left foot pain. HISTORY OF PRESENT ILLNESS She said it is getting more swollen. She was seen by Trinidad Tapia on 12/01. At that time, she wasgiven Keflex. She said that she has been taking Keflex four times a day without any significant difference. The foot is still throbbing and painful. The redness is getting worse. The redness is fairly concentrated in the area on the dorsolateral aspect of the left foot. She said that she has a family history of gout. She had a previous episode of gout in one of the toes. She has some pain in one of the toes, but she did not know if that was gout or not. She denies any history of hyperuricemia. She has never been checked for that. CURRENT MEDICATIONS Atenolol. Lisinopril/hydrochlorothiazide. Keflex 500 mg four times a day. ALLERGIES No known drug allergies. SYSTEMS REVIEW The patient denies any fever or chills. No nausea or vomiting. Denies any injury to the foot. The rest of review of systems is unremarkable. PAST MEDICAL/SURGICAL HISTORY Aortic insufficiency. Hypertension. Tick bite. PHYSICAL EXAM HEENT: Head, eyes, ears, nose and throat examination is unremarkable. NECK: Supple. CHEST: Clear. EXTREMITIES: On examination of the left foot, the patient has an area of redness that is about threeinches in diameter on the dorsolateral aspect of the left foot. It is tender to touch. Local induration, swelling. Minimal local warmth. Painful range of motion in the area. Dorsiflexion and plantar flexion of the left foot is painful. No swelling of the ankle. IMAGING STUDIES: A local x-ray of the left foot is done. Degenerative changes are noticed. Cortical thickening of the calcaneal tuberosity is also noticed on the x-ray. Calcaneal cortical thickness could be from an old trauma. Advanced degenerative joint disease is noticed. Marisol Mcfadden M.D./leida Electronically Signed By: MARISOL MCFADDEN MD On: 12/07/2011 10:52 AM Source: [facility] MHSDOLBEYNONRADSYS Document Id: [id number] documented in this encounter Miscellaneous Notes Miscellaneous - Marisol Mcfadden M.D. - 12/12/2011 8:03 AM CDT Results Notification Document Contains Addenda Addendum by SE DALAL LPN on 13 December 2011 13:39:43 CDT Left message for patient to call clinic back. From: MARISOL MCFADDEN MD To: SE DALAL LPN Sent: 12/12/2011 08:03:32 CDT ! Show up: 12/12/2011 13:03:32 [facility] Subject: Results Notification Actions: Notify patient of results Source: [facility] POWERCHART Document Id: [id number] Electronically signed by Leo [facility] Hospital[facility] Aircraft Maintenance Technician [id number] at 08/07/2016 1:40 AM CDT Miscellaneous - Marisol Mcfadden M.D. - 12/07/2011 9:46 AM CDT Ambulatory Patient Summary [address] [address] Visit Information Name: JANETH DUENAS Current Date: 12/07/2011 09:46:51 Physicians Attending Provider: MARISOL MCFADDEN MD Primary Care Provider: MARISOL MCFADDEN MD Your Medications Here is a list of your medications. It is important to take your medications as directed. Use a pillbox or chart to help remind you to take your medications. Please let your doctor or nurse know if you have problems taking your medications. Medication/Strength Dose Route Frequency Indications/Special Instructions/Comments methylPREDNISolone (Medrol Dosepak 4 mg oral tablet) See special instructions Oral as directed for 6Days lisinopril-hydrochlorothiazide (lisinopril-hydrochlorothiazide 20 mg-25 mg oral tablet) [...] No Appointments found Your Goals/Additional instructions: Source: [facility] POWERCHART Document Id: [id number] Miscellaneous - Marisol Mcfadden M.D. - 12/07/2011 9:46 AM CDT Ambulatory Depart Summary [id number] [place] [address] Visit Information Name: JANETH DUENAS RHYS Visit Date: 12/07/2011 09:46:50 Attending Provider: MARISOL MCFADDEN MD Primary Care Provider: MARISOL MCFADDEN MD JANETH DUENASE has been given the following list of medications: Your Medications It is important to take your medications as directed. Use a pill box or chart to help remind you to take your medications. Please let your doctor or nurse know if you have problems taking your medications. Medication/Strength Dose Route Frequency Indications/Special Instructions/Comments methylPREDNISolone (Medrol Dosepak 4 mg oral tablet) See special instructions Oral as directed for 6Days lisinopril-hydrochlorothiazide (lisinopril-hydrochlorothiazide 20 mg-25 mg oral tablet) [...] your provider for clarification. Additional Information: Source: [facility] POWERCHART Document Id: [id number] Miscellaneous - Se Dalal, L.P.N. - 12/07/2011 8:51 AM CDT Adult [place] Layer Intake/History Adult [place] Layer Intake/History Entered On: 12/07/2011 8:57 CDT Performed On: 12/07/2011 8:51 CDT by SE DALAL LINE P[facility]OT Intake Chief Complaint : Left foot swollen and red. Was seen yesterday and this morning has gotten worse. Temperature Core : 36.4C(Converted to: 97.5DegF) (LOW) Peripheral Pulse Rate : 64/min Respiratory Rate : 18/min Heart Rhythm : Regular Systolic Blood Pressure : 130mmHg Diastolic Blood Pressure : 72mmHg NIBP Mean : 91mmHg BP Location : Left upper extremity Blood Pressure Cuff Size : Regular SpO2 : 97% Oxygen Therapy : Room air Actual Weight : 60.2kg(Converted to: 132lb 11oz) Weight Source : Standing scale Dosing Weight Clinic : 60.20kg SE DALAL [facility] - 12/07/2011 8:51 CDT Subjective Pain Symptoms : Yes SE DALAL [facility] - 12/07/2011 8:51 CDT Pain Pain Assessment Grid Pain 1 Location : Foot Laterality : Left Intensity : 7 SE DALAL [facility] - 12/07/2011 8:51 CDT Dependent Habits Tobacco Use/Currently Using : No Exposure to Tobacco Smoke : Care provider denies smoking in home Smoking Status : Never smoker SE DALAL [facility] - 12/07/2011 8:51 CDT Tobacco Use Grid Last Use : never SE DALAL LPN - 12/07/2011 8:51 CDT Alcohol Use : Yes SE DALAL [facility] - 12/07/2011 8:51 CDT Caffeine Use Grid Caffeine Use : Current Type : Coffee Frequency : Daily Amount : 2 SE DALAL LPN - 12/07/2011 8:51 CDT Recreational Drug Use Grid Drug Use : None SE DALAL LPN - 12/07/2011 8:51 CDT Allergy Allergies (Active) NKA Estimated Onset Date: Unspecified ; Created By: MAY DAVIDSON LPN; Reaction Status: Active ;Category: Drug ; Substance: NKA ; Type: Allergy ; Updated By: MAY DAVIDSON LPN; Reviewed Date: 12/06/2011 8:34 CDT Source: [facility] POWERCHART Document Id: [id number] documented in this encounter Plan of Treatment Not on filedocumented as of this encounter Procedures Procedure Name Priority Date/Time Associated Comments Diagnosis AUTOMATED Routine 12/07/2011 9:30 AM Results f or this DIFFERENTIAL, B CDT procedure ar e in the results section. SEDIMENTATION RATE, B Routine 12/07/2011 9:30 AM Results for this CDT procedure are i n the results section. CBC WITH DIFFERENTIAL, Routine 12/07/2011 9:30 AM Results for this B CDT procedure are i n the results section. URIC ACID, S/P Routine 12/07/2011 9:30 AM Results for this CDT procedure are i n the results section. BASIC METABOLIC PANEL, Routine 12/07/2011 9:30 AM Results for this S/P CDT procedure are i n the results section. documented in this encounter Results (ABNORMAL) Automated Differential (12/07/2011 9:30 AM CDT) [facility] [employer] Method Time Signature Neutro % 71.6 42.0 - POWERCHART 77.0 Lymphocytes % 11.2 (L) 23.0 - POWERCHART 44.0 HX [place] % 14.7 2.0 - 18.0 POWERCHART HX Eos % 2.0 1.0 - 5.0 POWERCHART HX Baso % 0.5 0.0 - 1.0 POWERCHART Absolute 7.63 (H) 1.70 - POWERCHART Neutrophils 7.00 109L Lymphocytes 1.19 0.90 - POWERCHART 2.90 X109L Monocytes 1.56 (H) 0.30 - POWERCHART 0.90 X109L Eosinophils 0.21 0.05 - POWERCHART 0.50 X109L Absolute 0.05 0.00 - POWERCHART Basophil 0.30 X109L Specimen Anatomical Collection Method Collection Time Receive d Time (Source) Location / / Volume Laterality Blood 12/07/2011 9:30 AM 2 9:30 CDT AM CDT Marisol Mcfadden M.D. LAB BLOOD ADD-ON Performing Organization Address City/State/ZIP Code Phon e Number POWERCHART (ABNORMAL) Sedimentation Rate (12/07/2011 9:30 AM CDT) [facility] Method Time Signature Sedimentation 37 (H) 0 - 30 POWERCHART Rate, B MMHR Specimen (Source) Anatomical Collection Method Collection Time Re ceived Time Location / / Volume Laterality Blood 12/07/2011 9:30 AM CDT Marisol Mcfadden M.D. LAB BLOOD ADD-ON Performing Organization Address City/State/ZIP Code Phon e Number POWERCHART (ABNORMAL) CBC with Differential (12/07/2011 9:30 AM CDT) [facility] Method Time Signature Leukocytes 10.6 (H) 3.4 - 10.5 POWERCHART X109L Erythrocytes 4.15 3.90 - POWERCHART 5.03 [id number] Hemoglobin 12.7 12.0 - POWERCHART 15.5 GDL Hematocrit 37.4 34.9 - POWERCHART 44.5 MCV 90.1 82.0 - POWERCHART 98.0 FL HX RDW 11.3 (L) 11.9 - POWERCHART 15.5 Platelet Count 287 150 - 450 POWERCHART X109L HXDifferential? Auto POWERCHART Specimen (Source) Anatomical Collection Method Collection Time Re ceived Time Location / / Volume Laterality Blood 12/07/2011 9:30 AM CDT Marisol Mcfadden M.D. LAB BLOOD ADD-ON Performing Organization Address City/State/ZIP Code Phon e Number POWERCHART Uric Acid (12/07/2011 9:30 AM CDT) P athologist Signature Uric Acid, S 7.6 2.8 - 8.0 POWERCHART MGDL Specimen (Source) Anatomical Collection Method Collection Time Re ceived Time Location / / Volume Laterality Blood 12/07/2011 9:30 AM CDT Marisol Mcfadden M.D. LAB BLOOD ADD-ON Performing Organization Address City/State/ZIP Code Phon e Number POWERCHART (ABNORMAL) BMP (Basic Metabolic Panel) (12/07/2011 9:30 AM CDT) Analysis Performed At Patho logist Time Signature Sodium, S 137.3 135.0 - POWERCHART 145.0 MML Potassium, S 3.7 3.6 - 4.8 POWERCHART MMOLL Chloride, S 99 (L) 100 - 108 POWERCHART MMOLL CO2 Total 31.8 (H) 23.0 - POWERCHART 29.0 MMOLL BUN (Blood Urea 15 7 - 18 POWERCHART Nitrogen), S MGDL Creatinine 0.81 0.60 - POWERCHART 1.30 MGDL Calcium, Total, 9.1 8.5 - 10.1 POWERCHART S MGDL BUN/Creatinine 18.0 10.0 - POWERCHART Ratio 20.0 Anion Gap 6 (L) 10 - 20 POWERCHART MMOLL HXeGFR (MDRD) >60 >=61 POWERCHART [id number] Comment: A GFR of <60 mL/min is indicative of chr onic kidney disease. (MDRD calculation valid on patients 18 - 70 years.) eGFR Black/ >60 MLMIN PO WERCHART Glucose 104 70 - 139 MGDL POWERCHART Specimen (Source) Anatomical Collection Method Collection Time Re ceived Time Location / / Volume Laterality Blood 12/07/2011 9:30 AM CDT Marisol Mcfadden M.D. LAB BLOOD ADD-ON Performing Organization Address City/State/ZIP Code Phon e Number POWERCHART documented in this encounter Visit Diagnoses Not on filedocumented in this encounter
--- OUTSIDE RECORDS SUMMARY | 2022-01-04 09:40 | XMS_ITS | Encounter Summary ---
:1935 Author Organization [facility] Address [address] [place] [address] Care Team Providers Name Role Phone Unavailable Primary Care Provider Unavailable Encounter Details Date Type Department Care Team Description 06/06/2013 Hospital Encounter HX [facility] Whit Frankel M.D. [address] [place], [place] [phone] (Wo rk) Social History Tobacco Use Types Packs/Day Years Used Date Smoking Tobacco: Never Assessed Sex Assigned at Date Recorded Not on file documented as of this encounter Medications at Time of Discharge Medication Sig Dispensed Refills Start Date End Date CALCIUM CARB/VIT Take by mouth daily. 0 1 01/21/2019 D3/MINERALS (CALCIUM-VITAMIN D ORAL) [id number] Take 1 capsule by 0 011 05/30/2018 oil 1,400 mg/5 mL liquid mouth daily. documented as of this encounter Nursing Notes Batsheva Newby R.N. - 06/07/2013 10:04 AM CDT echocardiogram Email sent to Dr. Singh via [facility] that the echocardiogram of yesterday is availabe for him to review. Patient will purchase new blood pressure monitor this week. Will call patient next week to check on blood pressure readings and update Dr. Guillaume. Electronically Signed By: BATSHEVA NEWBY RN On: 06/07/2013 10:05 AM Modified by and Electronically Signed by: BATSHEVA NEWBY RN On: 06/07/2013 10:05 AM Source: [facility] POWERCHART Document Id: [id number] documented in this encounter Plan of Treatment Not on filedocumented as of this encounter Visit Diagnoses Not on filedocumented in this encounter
--- OUTSIDE RECORDS SUMMARY | 2022-01-04 09:40 | XMS_ITS | Encounter Summary ---
:1935 Author Organization [facility] Address [address] [place] [address] Care Team Providers Name Role Phone Unavailable Primary Care Provider Unavailable Encounter Details Date Type Department Care Team Description 10/01/2012 Hospital Encounter [facility] Aleisha coyle M.D. [address] [place] [phone] (Wo rk) Social History Tobacco Use Types Packs/Day Years Used Date Smoking Tobacco: Never Assessed Sex Assigned at Date Recorded Not on file documented as of this encounter Last Filed Vital Signs Vital Sign Reading Time Taken Comments Blood Pressure 122/64 10/01/2012 7:49 AM CDT Pulse 65 10/01/2012 7:49 AM CDT Temperature - - Respiratory Rate 16 10/01/2012 7:49 AM CDT Oxygen Saturation - - Inhaled Oxygen Concentration - - Weight 61 kg (134 lb 7.7 oz) 10/01/2012 7:49 AM CDT Height 162 cm (5' 3.78) 10/01/2012 7:49 AM CDT Body Mass Index 23.24 10/01/2012 7:49 AM CDT documented in this encounter Medications at Time of Discharge Medication Sig Dispensed Refills Start Date End Date CALCIUM CARB/VIT Take by mouth daily. 0 1 01/21/2019 D3/MINERALS (CALCIUM-VITAMIN D ORAL) [id number] Take 1 capsule by 0 011 05/30/2018 oil 1,400 mg/5 mL liquid mouth daily. documented as of this encounter Progress Notes Aleisha Hermosillo M.D. - 10/01/2012 7:46 AM CDT [id number] CHIEF COMPLAINT/REASON FOR VISIT Discolored urine. HISTORY OF PRESENT ILLNESS Janeth is a 77-year-old female who reports that last week she ate beets, approximately 4, and then the following day her urine looked kind of a reddish purple color. That happened twice and then resolved. She ate beets again last week and again had the discolored urine. It has been clear eversince. She denies any other urinary symptoms such as dysuria, hematuria, frequency, or urgency. She has had beets in the past and has never had this problem which is what concerned her. She has had no change in her medicines and has not tried any other new foods. There has been no abdominal pain, nausea or vomiting but she does note gnawing in her right side that comes and goes. CURRENT MEDICATIONS Her medications are reconciled, no changes. ALLERGIES No known drug allergies. SYSTEMS REVIEW Review of systems as per HPI. VITAL SIGNS Temperature 36.2, pulse is 65 beats per minute. Respiratory rate is 16 breaths per minute, blood pressure is 122/64. Oxygen saturation is 99% on room air. Height is 162 cm. Weight is 61 kg. BMI is 23.2. PHYSICAL EXAMINATION GENERAL: Patient is alert and oriented and in no acute distress. HEART: Cardiovascular exam regular rate and rhythm. She has a 2/6 systolic murmur. LUNGS: Clear to auscultation bilaterally. BACK: No cva tenderness. ABDOMEN: Abdomen is soft and nontender. No masses, rebound or guarding. Normoactive bowel sounds. LABORATORY: Urinalysis dip showed 2+ blood, negative nitrates, negative leukocyte esterase. Microscopy is negative. IMPRESSION/REPORT/PLAN Discolored urine. We discussed that this is likely related to the beets as that is fairly common. We have reassured her that the urinalysis was negative. Patient Education #1 Patient/child/caregiver is ready to learn. No apparent learning barriers were identified. Learning preferences included listening. Explained diagnosis and treatment plan. Patient/child/caregiver expressed understanding of the content. Aleisha Carroll M.D./ Electronically Signed By: ALEISHA GOLDEN MD On: 10/12/2012 02:58 PM Source: [facility] MHSDOLBEYNONRADSYS Document Id: [id number] documented in this encounter Miscellaneous Notes Miscellaneous - Aleisha Hermosillo M.D. - 10/01/2012 9:00 AM CDT Ambulatory Patient Summary [address] [address] Visit Information Name: JANETH DUENAS [facility] Number: [id number] Current Date: 10/01/2012 09:00:04 Physicians Attending Provider: ALEISHA GOLDEN MD Primary [...] No Appointments found Your Goals/Additional instructions: Source: [facility] [employer] Document Id: [id number] Miscellaneous - Aleisha Hermosillo M.D. - 10/01/2012 9:00 AM CDT Ambulatory Depart Summary [id number] [place] [address] Visit Information Name: JANETH DUENAS [facility] Number: [id number] Visit Date: 10/01/2012 09:00:03 Attending Provider: ALEISHA GOLDEN MD Primary Care [...] clarification. Additional Information: Source: [facility] [employer]CHART Document Id: [id number] Miscellaneous - Sheryl Cartwright L.P.N. - 10/01/2012 7:49 AM CDT Adult College Coach Intake/History Adult College Coach Intake/History Entered On: 10/01/2012 7:55 CDT Performed On: 10/01/2012 7:49 CDT by SHERYL CARTWRIGHT LPN, RT Intake Chief Complaint : concerned eating beets at noon last Mon. and seeing purple red urine in the afternoon. Temperature Core : 36.2 DegC(Converted to: 97.2 DegF) (LOW) Peripheral Pulse Rate : 65 /min Respiratory Rate : 16 /min Systolic Blood Pressure : 122 mmHg Diastolic Blood Pressure : 64 mmHg NIBP Mean : 83 mmHg BP Location : Right upper extremity Blood Pressure Cuff Size : Regular SpO2 : 99 % Oxygen Therapy : Room air Height : 162 cm(Converted to: 5 ft 4 inch(es), 63.78 inch(es)) Actual Weight : 61 kg(Converted to: 134 lb 8 oz) Weight Source : Standing scale Dosing Weight Clinic : 61 kg Clinic BSA : 1.66 Body Mass Index : 23.24 kg/m2 SHERYL CARTWRIGHT LPN, RT - 10/01/2012 7:49 CDT General Info Information Given By : Patient Preferred Communication Mode : Verbal Languages : Sinhala SHERYL CARTWRIGHT LPN, RT - 10/01/2012 7:49 CDT Subjective Pain Symptoms : No SHERYL CARTWRIGHT LPN, RT - 10/01/2012 7:49 CDT Dependent Habits Tobacco Use/Currently Using : No Exposure to Tobacco Smoke : Care provider denies smoking in home Smoking Status : Never smoker SHERYL CARTWRIGHT LPN, RT - 10/01/2012 7:49 CDT Tobacco Use Grid Last Use : never SHERYL CARTWRIGHT LPN, RT 10/01/2012 7:49 CDT Caffeine Use Grid Caffeine Use : Current Type : Coffee Frequency : Daily Amount : 2 SHERYL CARTWRIGHT LPN, RT - 10/01/2012 7:49 CDT Recreational Drug Use Grid Drug Use : None SHERYL CARTWRIGHT LPN, RT - 10/01/2012 7:49 CDT Source: [facility] POWERCHART Document Id: [id number]!41 documented in this encounter Plan of Treatment Not on filedocumented as of this encounter Procedures Procedure Name Priority Date/Time Associated Comments Diagnosis URINALYSIS, ROUTINE Routine 10/01/2012 8:35 AM Re sults for this CDT procedure are i n the results section. URINE MICROSCOPIC Routine 10/01/2012 8:35 AM Resu lts for this CDT procedure are i n the results section. documented in this encounter Results Urine Microscopic (10/01/2012 8:35 AM CDT) Patholo gist Method Time Signature HXUr WBC Negative POWERCHART Red Blood Cell Negative 0 - 2 POWERCHART Clump, Urine HXUr Bacteria Few POWERCHART HXUr Epithelial Occasional POWERCHART Comment: squamous HX MUCOUS THREADS Small POWERCHART Specimen Anatomical Collection Method Collection Time Receive d Time (Source) Location / / Volume Laterality Urine 10/01/2012 8:35 AM 3 8:35 CDT AM CDT Aleihsa Gonzales M.D. LAB URINE ORDERABLES Performing Organization Address City/State/ZIP Code Phon e Number POWERCHART Urinalysis, Routine (10/01/2012 8:35 AM CDT) P athologist Signature HXUr Color Yellow Yellow POWERCHART Appearance Clear Clear POWERCHART Glucose Negative Negative POWERCHART HXBILIRUBIN 1+ Negative POWERCHART Comment: pos per visual exam 10/01/2012 08:53:44 CDT [id number] Ketones, QL(U) Negative Negative POWERCHART Specific [place], POCT, U 1.025 1.000 - 1.030 POWERCHART pH, POCT, Urine 5.0 5.0 - 8.0 POWERCHART Protein, Ur, Dip Negative Negative POWERCHART Urobilinogen 0.2 POWERCHART HXNITRITE Negative Negative POWERCHART HXBLOOD 2+ Negative POWERCHART Leukocyte Esterase Negative Negative POWERCHART Source Clean Void Urine POWERCHART Specimen (Source) Anatomical Collection Method Collection Time Re ceived Time Location / / Volume Laterality Urine 10/01/2012 8:35 AM CDT Aleisha Gonzales M.D. LAB URINE ORDERABLES Performing Organization Address City/State/ZIP Code Phon e Number POWERCHART documented in this encounter Visit Diagnoses Not on filedocumented in this encounter
--- OUTSIDE RECORDS SUMMARY | 2022-01-04 09:40 | XMS_ITS | Encounter Summary ---
:1935 Author Organization [facility] Address [address] [place] [address] Care Team Providers Name Role Phone Unavailable Primary Care Provider Unavailable Encounter Details Date Type Department Care Team Description 06/19/2013 Hospital Encounter HX [facility] Paresh Mak III, M.D. [address] [place] [phone] (Wo rk) Social History Tobacco Use Types Packs/Day Years Used Date Smoking Tobacco: Never Assessed Sex Assigned at Date Recorded Not on file documented as of this encounter Last Filed Vital Signs Vital Sign Reading Time Taken Comments Blood Pressure 154/64 06/19/2013 3:28 PM CDT Pulse 67 06/19/2013 3:28 PM CDT Temperature - - Respiratory Rate 16 06/19/2013 3:28 PM CDT Oxygen Saturation - - Inhaled Oxygen Concentration - - Weight 59.4 kg (130 lb 15.3 oz) 06/19/2013 3:28 PM CDT Height - - Body Mass Index 22.36 04/29/2013 11:27 AM [facility] [employer] documented in this encounter Medications at Time of Discharge Medication Sig Dispensed Refills Start Date End Date CALCIUM CARB/VIT Take by mouth daily. 0 1 01/21/2019 D3/MINERALS (CALCIUM-VITAMIN D ORAL) [id number] Take 1 capsule by 0 011 05/30/2018 oil 1,400 mg/5 mL liquid mouth daily. documented as of this encounter Progress Notes Aurora Mak M.D. - 06/19/2013 2:43 PM CDT [id number] CHIEF COMPLAINT/REASON FOR VISIT Shoulder pain. HISTORY OF PRESENT ILLNESS Mrs. Rangel a 78-year-old white female who was recently seen in the emergency department for shoulder pain. It was radiating into her back as well as her chest and there was some thought that this maybe cardiac related. She was having significant high blood pressure at that time. She did a followup with Dr. Singh in Cardiology, ordered an echocardiogram. There had been some aortic valve sclerosisand aortic regurgitation that was considered to be moderate. Her discomfort did not appear to be cardiac related. She states today that she never filled the omeprazole that was prescribed. She was not aware that she was supposed to. When asked about her shoulder/neck pain she notes that it is worse with anxiety. She denies specific modifying factors that make it better or worse other than anxiety. She describes the pain as 5 out of 10 in intensity and more of a gnawing discomfort. It does not appearto be positional and when she does get the pain on the front side it is sharp and lasts for the lessthan 5 to 10 seconds. SYSTEMS REVIEW Pertinent positives and negatives noted above. The remainder of the complete review of systems are negative. PAST MEDICAL/SURGICAL HISTORY Hypertension. Aortic insufficiency. Gout. Hypercholesterolemia. PHYSICAL EXAMINATION VITAL SIGNS: Temperature 36.3. Pulse 67. Respirations 16. Blood pressure 154/64. Weight 59.4 kg. GENERAL: Patient is alert and cooperative. She appears to be mildly tense today. HEART: She has a 2 out of 6 diastolic murmur. It is relatively soft. ABDOMEN: Supple, nontender, nondistended with positive bowel sounds. EXTREMITIES: No signs of a gouty flare up at this time. IMPRESSION/REPORT/PLAN 1. Generalized pain in the neck. 2. Hypertension. 3. Gout. PLAN: With regard to her neck pain she is comfortable with attempting some Tylenol for now. I think scheduling this would be most appropriate, 325 mg 3 to 4 times daily. We will see how that goes and she will let me know if she has increasing need for pain relief. With regard to her high blood pressure, technically speaking this is only mildly elevated today witha combination of lisinopril/hydrochlorothiazide 20/25 and atenolol 50 mg daily. She has been on thatregimen for quite some time. She may benefit from an additional low-dose antihypertensive but I think following her blood pressure over a period of time would be most appropriate. Finally, with her gout, she is concerned about taking indomethacin and shows me the medication insert today. She is quite concerned that this will cause her to have a heart attack. I reassured her thatthis is not the case and certainly weighing in the risks and benefits of taking these medications has been done prior to them being prescribed. If she would prefer to use something else we could try steroids, but I think at this point given the pulse therapy of the indomethacin it could be considered safe. She expresses understanding. Her questions were answered. Reassurance is given. Aurora Mak M.D./dayanna Electronically Signed By: AURORA MAK III, MD On: 06/28/2013 08:19 AM Source: [facility] MHSDOLBEYNONRADSYS Document Id: [id number] documented in this encounter Nursing Notes Batsheva Newby R.N. - 06/28/2013 2:59 PM CDT blood pressure readings Note received from patient with recent am blood pressure readings. Recorded in EMR. Email sent to Dr. Singh with readings. Electronically Signed By: BATSHEVA NEWBY RN On: 06/28/2013 03:00 PM Modified by and Electronically Signed by: BATSHEVA NEWBY RN On: 06/28/2013 03:00 PM Source: [facility] POWERCHART Document Id: [id number] documented in this encounter Miscellaneous Notes Miscellaneous - Aurora Mak M.D. - 06/19/2013 3:58 PM CDT Ambulatory Patient Summary [address] [id number] Visit Information Name: JANETH RANGEL [facility] Number: [id number] Current Date: 06/19/2013 15:58:48 Physicians Attending Provider: AURORA MAK III, MD Primary Care Provider: MAGO GOLDEN MD [...] 600+D) 1 tab, Oral, once a day *indomethacin (Indocin 50 mg oral capsule) 1 cap, [...] the Following Medications: Medication list as of 06-19-13 15:58 Attention: If you have any medications at home that are not on this list, DO NOT take them until youcontact your provider for clarification. Give a copy of your medication list to your primary care provider. Update your medication list any time medications or doses are changed and carry your medication list at all times in case of emergency. Electronically Signed By: AURORA MAK III, MD Signed On:19-JUN-2013 15:57:17 Your Allergies & Intolerances Substance Reaction Symptoms Category Comments No Known Medication Allergies Drug NO KNOWN DRUG ALLERGIES Your Problem List Problem Status Onset Comments Hypertension Active 03/06/1990 Aortic insufficiency Active 10/20/2011 12/06/11 unknown date of dx; 12/06/11 stress test Gout NOS Active 11/26/2012 Active 11/13/2001 06/01/13 Essential hypertension, benign Active 11/13/2001 06/01/13 Pure hypercholesterolemia Your Upcoming Appointments Date Time Location Reason Provider No Appointments found Attention: Contact your local Clinic if further appointment detail needed. [address] Eating to Prevent Gout Gout is a painful condition caused by an excess of uric acid (a waste product made by the body). Theuric acid forms crystals that collect in the joints, bringing on a gout attack. Alcohol and certain foods can trigger a gout attack. Below are some guidelines for changing your diet to help you manage gout. Your healthcare provider can work with you to determine the best eating plan for you. Know thatdiet is only one part of managing gout. Take your medications as prescribed and follow the other guidelines your healthcare provider has given you. Foods to Limit Eating too many foods containing purines may increase the levels of uric acid in your body and increase your risk for a gout attack. It may be best to limit these high-purine foods: ?? Alcohol (beer, red wine). You may be told to avoid alcohol completely. ?? Certain fish (anchovies, sardines, fish roes, gallardo) ?? Certain meats (red meat, processed meat, turkey) ?? Organ meats (such as liver, kidneys, sweetbreads) ?? Legumes (such as dried beans, peas) ?? Mushrooms, spinach, asparagus, and cauliflower Foods to Try Some foods may be helpful for people with gout. You may want to try adding some of the following foods to your diet: ?? Dark berries: These include blueberries, blackberries, and cherries. These berries contain chemicals that may lower uric acid. ?? Tofu: Tofu, which is made from soy, is a good source of protein. Studies have shown that it may be a better choice than meat for people with gout. ?? Chidester fatty acids: These acids are found in fatty fish (such as salmon), certain oils (such as flax, olive, or nut oils), or nuts. They may help prevent inflammation due to gout. The following guidelines are recommended by the [employer] [employer] for people with gout. Your diet should be: High in fiber, whole grains, fruits, and vegetables. Low in protein (15% of calories should come from protein. Choose lean sources such as soy, lean meats, and poultry). Low in fat (no more than 30% of calories should come from fat, with only 10% coming from animal fat). ?? [address] [address]. All rights reserved. This information is not intended as a substitute for professional medical care. Always follow your healthcare professional's instructions. [address] Treating Gout Attacks Gout attacks are painful and often happen more than once. Taking medications may reduce pain and prevent attacks in the future. There are also some things you can do at home to relieve symptoms. Medications Your doctor may prescribe a daily long-term control medication to reduce levels of uric acid. This may help prevent gout attacks. Other medications can help relieve pain and swelling during an attack. Be sure to take your medication as directed. What You Can Do Below are some things you can do at home to relieve gout symptoms. Your doctor may have other tips. ?? Rest the painful joint as much as you can. ?? Raise the painful joint so it is at a level higher than your heart. Preventing Gout With a little effort, you may be able to prevent gout attacks in the future. Here are some things you can do: ?? Avoid alcohol and foods that trigger gout. ?? Take any long-term control medications prescribed by your doctor. ?? Lose weight if you need to. ?? Control blood pressure and cholesterol. Drink plenty of water to help flush uric acid from your body. ?? [facility], [address] [place] [address]. All rights reserved. This information is not intended as a substitute for professional medical care. Always follow your healthcare professional's instructions. [address] Your High Blood Pressure Risk Factors Risk factors are things that make you more likely to have a disease or condition. Do you know your risk factors for high blood pressure? You cant do anything about some risk factors. But other risk factors are things that can be changed. Know what high blood pressure risk factors you have. Then find out what changes you can make to help control your risk for high blood pressure. Start with the changethat you think will be easiest for you. Risk Factors You Cant Control Though you cant change any of the things listed below, check off the ones that apply to you. The more boxes you check, the greater your risk for high blood pressure. Family History One or both of your parents or grandparents has had high blood pressure or heart disease. A close male relative had heart disease or a heart attack (also known as acute myocardial infarction, or AMI) before age 55. A close female relative had heart disease or a heart attack before age 65. Gender and Age Youre a man over age 55 or a postmenopausal woman. Risk Factors You Can Control There are plenty of risk factors for high blood pressure that you can control. Learn what these riskfactors are and then find out how to reduce your risk. Check the ones that apply to you. What You Eat Do you eat a lot of salty, fatty, fried, or greasy foods?If You Smoke Do you smoke cigarettes or cigars, chew tobacco, or dip snuff?How Active You Are Are you inactive most of the time at work and at home?Your Weight Has your doctor said that you are 15 or more pounds overweight?Your Stress Level Do you often feel anxious, nervous, and stressed? ?? [id number] [place] [address]. All rights reserved. This information is not intended as a substitute for professional medical care. Always follow your healthcare professional's instructions. Your Goals/Additional instructions: This document has images extracted. Please consider using [employer] for all your patient education needs. Source: [facility] POWERCHART Document Id: [id number] Miscellaneous - Aurora Mak M.D. - 06/19/2013 3:58 PM CDT Ambulatory Discharge Medication List [address] [id number] Visit Information Name: JANETH RANGEL [facility] Number: [id number] Visit Date: 06/19/2013 15:58:45 Attending Provider: AURORA MAK III, MD Primary Care Provider: MAGO GOLDEN MD [...] 600+D) 1 tab, Oral, once a day *indomethacin (Indocin 50 mg oral capsule) 1 cap, [...] the Following Medications: Medication list as of 06-19-13 15:58 Attention: If you have any medications at home that are not on this list, DO NOT take them until youcontact your provider for clarification. Give a copy of your medication list to your primary care provider. Update your medication list any time medications or doses are changed and carry your medication list at all times in case of emergency. Electronically Signed By: AURORA MAK III, MD Signed On:19-JUN-2013 15:57:17 Additional Information: Source: [facility] [employer] Document Id: [id number] Miscellaneous - Janeth Og L.P.N. - 06/19/2013 3:35 PM CDT General Message From: JANETH OG LPN To: BATSHEVA NEWBY RN; Sent: 06/19/2013 15:35:13 CDT Subject: General Message Saw pt today and states you were going to call her after she got a BP machine for results. Please give her a call. Thank You. Source: [facility] [employer] Document Id: [id number] Electronically signed by Leo [facility] [id number] at 08/01/2016 7:56 PM CDT Miscellpuja - Janeth Og L.P.N. - 06/19/2013 3:28 PM CDT Adult Raw Sampler Intake/History Adult Raw Sampler Intake/History Entered On: 06/19/2013 15:34 CDT Performed On: 06/19/2013 15:28 CDT by JANETH OG LPN Intake Chief Complaint : Nawing feeling in left shoulder. Radiates down front and down back of shoulder. Gets worse when she getsnerved up. Also saw Dr. Singh and had Echo done. Has not heard results.Was told to get BP machine but no one has called to verify BP's. Ambulatory Intake Additional Information : was given omeprozole in ER by Dr. Solares but did not know she was to get this med. Temperature Core : 36.3 DegC(Converted to: 97.3 DegF) (LOW) Peripheral Pulse Rate : 67 /min Respiratory Rate : 16 /min Heart Rhythm : Regular Systolic Blood Pressure : 154 mmHg (HI) Diastolic Blood Pressure : 64 mmHg NIBP Mean : 94 mmHg BP Location : Right upper extremity Blood Pressure Cuff Size : Regular Actual Weight : 59.4 kg(Converted to: 130 lb 15 oz) Weight Source : Standing scale Dosing Weight Clinic : 59.4 kg JANETH OG LPN - 06/19/2013 15:28 CDT General Info Information Given By : Patient Languages : Omani JANETH OG LPN - 06/19/2013 15:28 CDT Subjective Pain Symptoms : Yes JANETH OG LPN - 06/19/2013 15:28 CDT Pain Pain Assessment Grid Pain 1 Location : Shoulder Laterality : Left Intensity : 5 JANETH OG LPN - 06/19/2013 15:28 CDT Dependent Habits Tobacco Use/Currently Using : No Exposure to Tobacco Smoke : Care provider denies smoking in home Smoking Status : Never smoker JANETH OG LPN - 06/19/2013 15:28 CDT Tobacco Use Grid Last Use : never JANETH OG LPN - 06/19/2013 15:28 CDT Caffeine Use Grid Caffeine Use : Current Type : Coffee Frequency : Daily Amount : 2 JANETH OG LPN - 06/19/2013 15:28 CDT Recreational Drug Use Grid Drug Use : None JANETH OG LPN - 06/19/2013 15:28 CDT [facility] Document Id: [id number]!43 documented in this encounter Plan of Treatment Not on filedocumented as of this encounter Visit Diagnoses Not on filedocumented in this encounter
--- OUTSIDE RECORDS SUMMARY | 2022-01-04 09:40 | XMS_ITS | Encounter Summary ---
:1935 Author Organization [facility] Address [address] [place] [address] Care Team Providers Name Role Phone Unavailable Primary Care Provider Unavailable Encounter Details Date Type Department Care Team Description 10/27/2011 Hospital Encounter HX NO MAPPING Alejandra Springer M .D. Social History Tobacco Use Types Packs/Day Years Used Date Smoking Tobacco: Never Assessed Sex Assigned at Date Recorded Not on file documented as of this encounter Last Filed Vital Signs Vital Sign Reading Time Taken Comments Blood Pressure 142/64 10/27/2011 2:07 PM CDT Pulse 60 10/27/2011 2:07 PM CDT Temperature - - Respiratory Rate - - Oxygen Saturation - - Inhaled Oxygen Concentration - - Weight 59.9 kg (132 lb 0.9 oz) 10/27/2011 2:07 PM CDT Height 162 cm (5' 3.78) 10/27/2011 2:07 PM CDT Body Mass Index 22.82 10/27/2011 2:07 PM CDT documented in this encounter Medications at Time of Discharge Medication Sig Dispensed Refills Start Date End Date CALCIUM CARB/VIT Take by mouth daily. 0 1 01/21/2019 D3/MINERALS (CALCIUM-VITAMIN D ORAL) [id number]-fish Take 1 capsule by 0 011 05/30/2018 oil 1,400 mg/5 mL liquid mouth daily. documented as of this encounter Consult Notes Alejandra Springer M.D. - 10/27/2011 1:33 PM CDT CARDCONJYOTI IMPRESSION/REPORT/PLAN 1. Non cardiac chest pain. The stress echocardiogram was negative for ischemia. No further investigations are required. She haslittle in the way of risk factors for coronary artery disease. 2. Aortic insufficiency. She has moderate aortic insufficiency (peak volume 48 cc). The left ventricle was mildly enlarged. This is probably due to degenerative changes caused by hypertensive heart disease. The aortic valve was tricuspid on the echocardiography. She has no history of rheumatic fever.The ascending aorta is only slightly dilated (34 mm). She is already on an RENATO inhibitor. I recommended that she have another echocardiogram done in two years or sooner if she notes shortness of breath. CHIEF COMPLAINT/REASON FOR VISIT Patient referred by Dr. Skelton for evaluation of ST segment depression during an exercise echocardiogram. HISTORY OF PRESENT ILLNESS 1. Positive exercise electrocardiogram. Janeth Rangel is a 61 year-old woman from the [facility] who presented with chest discomfort.She has had a couple of admission to the emergency department in the past with chest discomfort during the first part of October while [place]. She had four or five episodes of chest discomfort during the four days that she was there. She describes it as a pressure like discomfort that occurred in the left inframammary region and in her upper left back. It was not associated with exertion. It seemed to be aggravated by nervousness. She said she is nervous a lot. When she returned home, the frequency and severity of the discomfort lessened. She has no history of coronary artery disease.She does not smoke cigarettes and does have diabetes. She has a history of hypertension. Blood pressure today measures 142/64 on lisinopril/hydrochlorothiazide 20/25 one per day, spironolactone (100 mgone per day) for hair loss and blood pressure, and atenolol 50 mg once a day. She says her cholesterol is good but I do not have her result. She is on no treatment. She has no significant family history of coronary artery disease. In the last week or two she has been walking a mile which includes a hill. This does not bother her and she has no chest discomfort. As part of the exercise treadmill test she had a stress echocardiogram. Double product increased to 26,040. She stopped because of fatigue. Ejection fraction increased to 65-70% with stress. The study was negative for ischemia. Electrocardiogram was called positive during recovery. She has moderate aortic insufficiency. 2. Aortic insufficiency on echocardiography. She said she had a murmur as a young child but was unaware of a murmur as an adult. The echocardiogram shows moderate aortic insufficiency (peak volume 48 cc). The left ventricle was mildly enlarged and measured 55 mm (normal 36-50). The ascending aorta wasnear normal at 34 mm in diameter). CURRENT MEDICATIONS 1. Lisinopril/hydrochlorothiazide 20/25 one per day. 2. Spironolactone 100 mg one per day. 3. Atenolol 50 once per day. 4. Fish oil one per daily. 5. Aspirin 81 mg once per day. PAST MEDICAL/SURGICAL HISTORY Please see Gilberto Lion's note of December. SOCIAL HISTORY Please see Gilberto Lion's note of December. FAMILY HISTORY Please see Gilberto Lion's note of December. VITAL SIGNS Blood pressure 142/64. Pulse 60 beats per minute and regular. PHYSICAL EXAMINATION GENERAL: Normal body habitus. Well groomed. PSYCHIATRIC: Normal mood and affect. Oriented to person, place, and time. MUSCULOSKELETAL: Gait normal. EXTREMITIES: No clubbing or cyanosis. EYES: No xanthelasma or conjunctivitis. ENT: No oral mucosa pallor or cyanosis. HEART: S1, S2 normal. A II/ systolic ejection murmur radiates to the carotids, a II/ diastolic murmur consistent with aortic insufficiency. Pulses are mildly increased. VESSELS: No carotid bruits. Normal pedal pulses. LUNGS: Normal respiratory effort and air movement. Clear to auscultation. ABDOMEN: Normal sized liver and spleen. No abdominal masses or tenderness. SKIN: No stasis dermatitis or ulceration. Alejandra Springer M.D./[facility] Electronically Signed By: ALEJANDRA SPRINGER MD On: 11/17/2011 12:16 PM Modified by and Electronically Signed by: ALEJANDRA SPRINGER MD On: 11/17/2011 12:16 PM Source: [facility] MHSDOLBEYNONRADSYS Document Id: [id number] documented in this encounter Miscellaneous Notes Miscellaneous - Alejandra Springer M.D. - 10/27/2011 2:41 PM CDT Ambulatory Patient Summary [facility] [id number] [place] [address] Visit Information Name: JANETH RANGEL Current Date: 10/27/2011 14:41:41 Physicians Attending Provider: ALEJANDRA SPRINGER MD Primary Care Provider: MARISOL MCFADDEN MD Your Medications Here is a list of your medications. It is important to take your medications as directed. Use a pillbox or chart to help remind you to take your medications. Please let your doctor or nurse know if you have problems taking your medications. Medication/Strength Dose Route Frequency Indications/Special Instructions/Comments spironolactone (spironolactone 100 mg oral tablet) 100 mg Oral once a day BP and hair. with meals lisinopril-hydrochlorothiazide (lisinopril-hydrochlorothiazide 20 mg-25 mg oral tablet) [...] Hypertension Active 03/06/1990 Tick Bite Active 05/25/2011 Your Upcoming Appointments Date Time Location Reason Provider No Appointments found Your Goals/Additional instructions: Source: [facility] POWERCHART Document Id: [id number] Miscellaneous - Alejandra Springer M.D. - 10/27/2011 2:41 PM CDT Ambulatory Depart Summary [facility] [address] [place] [address] Visit Information Name: JANETH RANGEL Visit Date: 10/27/2011 14:41:40 Attending Provider: ALEJANDRA SPRINGER MD Primary Care Provider: MARISOL MCFADDEN MD JANETH RANGEL has been given the following list of medications: Your Medications It is important to take your medications as directed. Use a pill box or chart to help remind you to take your medications. Please let your doctor or nurse know if you have problems taking your medications. Medication/Strength Dose Route Frequency Indications/Special Instructions/Comments spironolactone (spironolactone 100 mg oral tablet) 100 mg Oral once a day BP and hair. with meals lisinopril-hydrochlorothiazide (lisinopril-hydrochlorothiazide 20 mg-25 mg oral tablet) [...] your provider for clarification. Additional Information: Source: [facility] POWERCHART Document Id: [id number] Miscellaneous - Batsheva Newby RKaiN. - 10/27/2011 2:07 PM CDT Adult Cemetery Keeper Intake/History Adult Cemetery Keeper Intake/History Entered On: 10/27/2011 14:10 CDT Performed On: 10/27/2011 14:07 CDT by BATSHEVA NEWBY pathology laboratory technologist Chief Complaint : Here to review stress echo Onset of Symptoms : Continues to have some chest discomfort in left chest area - raditates to back. Usually lasts several minutes Peripheral Pulse Rate : 60/min Systolic Blood Pressure : 142mmHg (HI) Diastolic Blood Pressure : 64mmHg NIBP Mean : 90mmHg Height : 162cm(Converted to: 5ft 4inch(es), 63.78inch(es)) Actual Weight : 59.9kg(Converted to: 132lb 1oz) Dosing Weight Clinic : 59.90kg Clinic BSA : 1.64 Body Mass Index : 22.82kg/m2 BATSHEVA NEWBY RN - 10/27/2011 14:07 CDT General Info Information Given By : Patient, Spouse Preferred Communication Mode : Verbal Languages : Hebrew BATSHEVA NEWBY RN - 10/27/2011 14:07 CDT Subjective Pain Symptoms : No BATSHEVA NEWBY RN - 10/27/2011 14:07 CDT Dependent Habits Tobacco Use/Currently Using : No Exposure to Tobacco Smoke : Care provider denies smoking in home Smoking Status : Never smoker BATSHEVA NEWBY RN - 10/27/2011 14:07 CDT Tobacco Use Grid Last Use : never BATSHEVA NEWBY RN - 10/27/2011 14:07 CDT Alcohol Use : Yes BATSHEVA NEWBY RN - 10/27/2011 14:07 CDT Caffeine Use Grid Caffeine Use : Current Type : Coffee Frequency : Daily Amount : 2 BATSHEVA NEWBY RN - 10/27/2011 14:07 CDT Recreational Drug Use Grid Drug Use : None BATSHEVA NEWBY RN - 10/27/2011 14:07 CDT Allergy Allergies (Active) NKA Estimated Onset Date: Unspecified ; Created By: MAY DAVIDSON LPN; Reaction Status: Active ;Category: Drug ; Substance: NKA ; Type: Allergy ; Updated By: MAY DAVIDSON LPN; Reviewed Date: 10/27/2011 14:07 CDT Source: [facility] Studio [employer] Document Id: [id number] documented in this encounter Plan of Treatment Not on filedocumented as of this encounter Visit Diagnoses Not on filedocumented in this encounter
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
--- OUTSIDE RECORDS SUMMARY | 2022-01-04 09:41 | XMS_ITS | Encounter Summary ---
:1935 Author Organization [facility] Address [address] [place] [address] Care Team Providers Name Role Phone Unavailable Primary Care Provider Unavailable Encounter Details Date Type Department Care Team Description 04/29/2004 Hospital Encounter HX [facility] Elean Oliveira D.OKai [address] [place], [place] [address] (Wo rk) Social History Tobacco Use Types Packs/Day Years Used Date Smoking Tobacco: Never Assessed Sex Assigned at Date Recorded Not on file documented as of this encounter Miscellaneous Notes Miscellaneous - Elena Oliveira D.O. - 04/29/2004 12:00 AM CST [id number] Janeth Duenas [address] [place] [address] April 30, 2004 Dear Ms. Duenas, APPOINTMENT REMINDER: Our records indicate that it is time for you to be seen for an office visit. In order for me to continue to fill your prescriptions, you will need to be seen in the clinic. If you have changed your care to another clinic, please call and let us and your pharmacy know as they continue to contact us forrefills. You may call our office at [phone] or [phone]. Sincerely, Elena Oliveira, DO [facility] of [facility] Document Id: [id number] Electronically signed by Conversion, [employer] Air Intercept Controller Supervisor [id number] at 08/08/2016 11:38 PM CDT Telephone Encounter - Conversion, Historical Provider Ser - 04/29/2004 12:00 AM CST [id number] Last B/P: 122/80 Last visit with PCP in October of 2002.CAD/HTN and or CHF labs: CR 0.9 10/09/2002 POTASSIUM 3.7 10/09/2002 [facility] Document Id: [id number] Telephone Encounter - Elena Oliveira D.O. - 04/29/2004 12:00 AM CST [id number] Patient's request for a refill has been approved. Order entered - it has been faxed to [facility]. I shall send letter that appointment is due. [facility] Document Id: [id number] Electronically signed by Conversion, [employer] Air Intercept Controller Supervisor [id number] at 08/08/2016 11:38 PM CDT documented in this encounter Plan of Treatment Not on filedocumented as of this encounter Visit Diagnoses Not on filedocumented in this encounter
--- OUTSIDE RECORDS SUMMARY | 2022-01-04 09:41 | XMS_ITS | Encounter Summary ---
:1935 Author Organization [facility] Address [address] [place] [address] Care Team Providers Name Role Phone Unavailable Primary Care Provider Unavailable Encounter Details Date Type Department Care Team Description 11/28/2007 Hospital Encounter HX [facility] INPT/OBSRV Brittani Muro M.D. [address] [place] [address] (Wo rk) Social History Tobacco Use Types Packs/Day Years Used Date Smoking Tobacco: Never Assessed Sex Assigned at Date Recorded Not on file documented as of this encounter Plan of Treatment Not on filedocumented as of this encounter Visit Diagnoses Not on filedocumented in this encounter
--- OUTSIDE RECORDS SUMMARY | 2022-01-04 09:41 | XMS_ITS | Encounter Summary ---
:1935 Author Organization [facility] Address [address] [place] [address] Care Team Providers Name Role Phone Unavailable Primary Care Provider Unavailable Encounter Details Date Type Department Care Team Description 11/09/2010 Hospital Encounter HX [facility] ME Amy Green, N[address] [place] [phone] (Wo rk) Social History Tobacco Use Types Packs/Day Years Used Date Smoking Tobacco: Never Assessed Sex Assigned at Date Recorded Not on file documented as of this encounter Medications at Time of Discharge Medication Sig Dispensed Refills Start Date End Date CALCIUM CARB/VIT Take by mouth daily. 0 1 01/21/2019 D3/MINERALS (CALCIUM-VITAMIN D ORAL) [id number] Take 1 capsule by 0 011 05/30/2018 oil 1,400 mg/5 mL liquid mouth daily. documented as of this encounter Progress Notes Zachariah Green N.P. - 11/09/2010 12:00 AM CDT [id number] CHIEF COMPLAINT/REASON FOR VISIT Rash on head. HISTORY OF PRESENT ILLNESS Janeth is a 75-year-old female who is here today with concerns about a rash on her scalp. She reports that it has been there for approximately one week and started after she was out on the boat and had significant sun exposure. She has been using some dlnm-sdv-qfdujzm hydrocortisone cream for treatment of this with little improvement of her symptoms over the past three to four days. Janeth denies any change in her hair care products. She has not had her hair dyed recently. She states that she has had no rash anywhere else except on her scalp. She reports that it kahn but she has not noticed any blisters and no one else in her house had similar symptoms. CURRENT MEDICATIONS Reviewed. No change. Please see EMR. ALLERGIES 1. No known drug allergies. PAST MEDICAL/SURGICAL HISTORY 1. Hypertension. CURRENT MEDICATIONS Temperature 36.2, pulse 58, respirations 18, blood pressure 160/62, O2 sat 98% on room air. PHYSICAL EXAMINATION GENERAL: Janeth is alert, oriented x3, appears in no acute distress. HEART: Heart rate is regular; S1-S2 is present. No murmur or rub. LUNGS: Clear to auscultation. SKIN: Scalp is examined. There is some noticeable thinning of the hair, noted although no breakage of the hair follicles in the affected areas. There are some erythematous macular patches noted with no blistering and no scaling. The area does appear to look as though a sunburn was present. IMPRESSION/REPORT/PLAN 1. Sun burn 2. High Blood pressure PLAN: 1. Discussed with Janeth is that it seems reasonable due to limited findings of being on her scalp only that she suffered a sunburn after being out on the boat. I would suggest that she continue using the hydrocortisone as needed basis but she may also try an mkel-voo-bnlozsl product with aloe in it to help with soothing. Advised to avoid any hair treatments until the burn had completely resolved. 2. Discussed elevated blood pressure. Janeth has a monitor at home and I have suggested she check herblood pressure 2-3 times in the next 1-2 weeks and return for F/U if her blood pressure remains henq195/90. 3. Janeth is to follow up with the clinic if her signs and symptoms are not improving over the next five to seven days or sooner if they worsen. Her questions have been addressed and she is agreeable to this plan of care. PATIENT EDUCATION: Ready to learn No apparent learning barriers were identified Learning preferences include listening Explained diagnosis and treatment plan Patient/Child/Caregiver expressed understanding of the content Zachariah Green N.P. /leida Electronically Signed By: ZACHARIAH GREEN NP On: 11/09/2010 09:36 am Modified by and Electronically Signed by: ZACHARIAH GREEN COLOR DEVELOPER On: 11/09/2010 09:36 am Source: [facility] MHSDOLBEYNONDESTINISYS Document Id: [id number] documented in this encounter Miscellaneous Notes Miscellaneous - Zachariah Green N.P. - 11/09/2010 8:27 AM CDT Ambulatory Patient Summary [id number] [place] [address] Visit Information Name: JANETH RANGEL Current Date: 11/09/2010 08:26:59 Primary Care Provider: MARISOL MCFADDEN MD Your Medications Here is a list of your medications. It is important to take your medications as directed. Use a pillbox or chart to help remind you to take your medications. Please let your doctor or nurse know if you have problems taking your medications. Medication/Strength Dose Route Frequency Indications/Special Instructions/Comments calcium-vitamin D (Calcium 600+D) 1 tab Oral once a day aspirin (aspirin) 81 mg Oral once a day omega-3 polyunsaturated fatty acids (Fish Oil oral capsule) 1 cap(s) Oral once a day lisinopril (lisinopril 20 mg oral tablet) 1 tab(s) Oral once a day atenolol (atenolol 50 mg oral tablet) 1 tab(s) Oral once a day Your Allergies & Intolerances Substance Reaction Symptoms Category Comments NKA Drug Your Problem List Problem Status Onset Comments Hypertension Active 03/06/1990 Your Recommendations We want to make sure you get the tests, immunizations, and guidance you need to stay healthy. Here is a customized list of recommendations, based on information we have in your medical record. Your doctor may have additional recommendations for you, based on your personal medical history and risk factors. You can help us by calling us to make an appointment when you are due for your tests. Additional information regarding recommendations: Test/Treatment Last Done Next Due Additional Information Screening Bone Density Once Women greater than age 64 11/09/2010 Checks for bone loss and osteoporosis. Screening Colonoscopy or Flex Sig or Occult Blood X3 11/09/2010 Checks for signs of cancer of the colon. Screening Mammogram every 1 year Women 40-75 11/09/2010 X-rays of breast to check for breast cancer. Lipid Panel every 5 years Age 20-75 11/09/2010 Checks blood for good (HDL) and bad (LDL) cholesterol. Know your numbers, they are one indicator of your risk for heart attack and stroke. Vaccine: Flu every 1 year 11/09/2010 Immunization to help prevent you from getting the flu strain expected to be a problem for that year's flu season. Vaccine: Pneumococcal Once 11/09/2010 Immunization to help prevent you from getting 23 kinds of pneumococcal bacteria that can lead to pneumonia, bacteremia and meningitis. Vaccine: Tetanus every 10 years 11/09/2010 Immunization to help prevent you from getting the seriousdisease Tetanus (Lockjaw). Your Upcoming Appointments Date Time Location Reason Provider No Appointments found Your Goals/Additional instructions: Source: [facility] POWERCHART Document Id: [id number] Electronically signed by Leo [facility] Center[facility] Pattern Maker [id number] at 08/07/2016 1:53 PM CDT Miscellaneous - Zachariah Grene, N.P. - 11/09/2010 8:26 AM CDT Ambulatory Depart Summary [address] [address] Visit Information Name: JANETH RANGEL Current Date: 11/09/2010 08:26:58 Primary Care Provider: MARISOL MCFADDEN MD JANETH RANGEL has been given the following list of medications: Your Medications It is important to take your medications as directed. Use a pill box or chart to help remind you to take your medications. Please let your doctor or nurse know if you have problems taking your medications. Medication/Strength Dose Route Frequency Indications/Special Instructions/Comments calcium-vitamin D (Calcium 600+D) 1 tab Oral once a day aspirin (aspirin) 81 mg Oral once a day omega-3 polyunsaturated fatty acids (Fish Oil oral capsule) 1 cap(s) Oral once a day lisinopril (lisinopril 20 mg oral tablet) 1 tab(s) Oral once a day atenolol (atenolol 50 mg oral tablet) 1 tab(s) Oral once a day Additional Information: Yes - Current list of reconciled medications is provided and explained to the patient and/or family, guardian/caregiver. Source: [facility] TrendPoCHART Document Id: [id number] Electronically signed by Leo [facility] Center[facility] Pattern Maker [id number] at 08/07/2016 1:53 PM CDT Miscellaneous - Zachariah Green N.P. - 11/09/2010 8:25 AM CDT Ambulatory Vitals Height Weight Ambulatory Vitals Height Weight Entered On: 11/09/2010 8:25 CDT Performed On: 11/09/2010 8:25 CDT by ZACHARIAH GREEN NP Vitals/Ht/Wt Systolic Blood Pressure: 160mmHg (HI) Diastolic Blood Pressure: 62mmHg NIBP Mean: 95mmHg ZACHARIAH GREEN COLOR DEVELOPER - 11/09/2010 8:25 CDT Source: [facility] Mixamo Document Id: [id number] CDT!5 Miscellaneous - Jackeline Nava L.P.N. - 11/09/2010 7:18 AM CDT Health Assessment Health Assessment Entered On: 11/09/2010 7:19 CDT Performed On: 11/09/2010 7:18 CDT by JACKELINE NAVA LPN Nutrition Nutrition Risk Factors by History Adult: None JACKELINE NAVA LPN - 11/09/2010 7:18 CDT Functional Current Daily Living Assistance: None JACKELINE NAVA LPN - 11/09/2010 7:18 CDT Dependent Habits Tobacco Use/Currently Using: No JACKELINE NAVA LPN - 11/09/2010 7:18 CDT Psychosocial Domestic Abuse Concerns: None JACKELINE NAVA LPN - 11/09/2010 7:18 CDT Advance Directive Advanced Directives: No JACKELINE NAVA LPN - 11/09/2010 7:18 CDT Educ Needs Learning Style Preference Adult Grid Patient: Video/Educational TV Family: Video/Educational TV JACKELINE NAVA LPN - 11/09/2010 7:18 CDT Source: [facility] [employer] Document Id: [id number] CDT!15 Miscellaneous - Jackeline Nava, L.P.N. - 11/09/2010 7:13 AM CDT Adult Weld Engineer Intake/History Adult Weld Engineer Intake/History Entered On: 11/09/2010 7:18 CDT Performed On: 11/09/2010 7:13 CDT by JACKELINE NAVA LPN Intake Chief Complaint: rash in head, out in sun Onset of Symptoms: 1 week b/p left arm 170/60 Temperature Core: 36.2C(Converted to: 97.2DegF) (LOW) Peripheral Pulse Rate: 58/min (LOW) Respiratory Rate: 18/min Systolic Blood Pressure: 180mmHg (>HHI) Diastolic Blood Pressure: 60mmHg NIBP Mean: 100mmHg BP Location: Right upper extremity SpO2: 98% Heart Rhythm: Regular Oxygen Therapy: Room air Height: 163.00cm(Converted to: 5ft 4inch(es), 64.17inch(es)) Actual Weight: 61.000kg(Converted to: 134lb 8oz) Weight Source: Standing scale Dosing Weight Clinic: 61.00kg Clinic BSA: 1.66 Body Mass Index: 22.96kg/m2 JACKELINE NAVA LPN - 11/09/2010 7:13 CDT Subjective Pain Symptoms: No JACKELINE NAVA LPN - 11/09/2010 7:13 CDT Dependent Habits Tobacco Use/Currently Using: No Alcohol Use: Yes JACKELINE NAVA LPN - 11/09/2010 7:13 CDT Allergy Allergies (Active) NKA Estimated Onset Date: Unspecified ; Created By: JACKELINE NAVA LPN; Reaction Status: Active ;Category: Drug ; Substance: NKA ; Type: Allergy ; Updated By: JACKELINE NAVA LPN; Reviewed Date: 11/09/2010 7:09 CDT Source: [facility] [employer] Document Id: [id number] CDT!25 documented in this encounter Plan of Treatment Not on filedocumented as of this encounter Visit Diagnoses Not on filedocumented in this encounter
--- OUTSIDE RECORDS SUMMARY | 2022-01-04 09:41 | XMS_ITS | Encounter Summary ---
:1935 Author Organization [facility] Address [address] [place] [address] Care Team Providers Name Role Phone Unavailable Primary Care Provider Unavailable Encounter Details Date Type Department Care Team Description 10/09/2002 Hospital Encounter [facility] Elena Oliveira D.OKai [address] [place], [place] [address] (Wo rk) Social History Tobacco Use Types Packs/Day Years Used Date Smoking Tobacco: Never Assessed Sex Assigned at Date Recorded Not on file documented as of this encounter Progress Notes Conversion, Historical Provider Ser - 10/09/2002 3:00 PM CDT [id number] Ms. Duenas is a 67 year old female who presents for a follow up regarding hypertension. She has had hypertension of moderate severity and started medication in 1999. Current hypertension therapy consi sts of RENATO inhibitor, beta-kimberly and diuretic. She denies concerns today, except that ears feel pl ugged. Janeth is compliant with medications and is compliant with diet. Review of patient's past me dical history indicates: BENIGN HYPERTENSION PURE HYPERCHO LESTEROLEM Review of p rosalina's past surgical history indicates: TOTAL ABDOM HYSTERECTOMY 1969' Comment: Hysterectomy, Total Abdominal (bleeding) - benign Social History: To bacco Use: Never Alcohol Use: occasionally Current prescriptions:ACCUPRIL 20 MG OR TABS one d aily for blood pressureATENOLOL 50 MG OR TABS one daily for blood pressureHYDROCHLOROTHIAZIDE 25 MG OR TABS one daily for blood pressure BRIEF REVIEW OF SYSTEMS:ENT: Denies cold symptoms, sinus con gestion, and sore throat. CARDIOVASCULAR: Denies chest pain, dyspnea, orthopnea, paroxysmal nocturna l dyspnea, palpitations, and edema.GASTROINTESTINAL: Denies heartburn, abdominal pain, constipation, and diarrhea.PULMONARY: no wheezing, no shortness of breath, no chronic cough.EXAM:Ms. Duenas is alert, lucid, pleasant, and in no distress. Well nourished, good hydration.VITALS: Blood pressure 122/80, pulse 60, temperature 97.2, weight 144 lbs 8 oz (65.545 kg), last menstrual period Hysterect ashlyn. LUNGS: Normal respiratory effort and auscultation reveals lungs to be clear.HEART: regular rh ythm with controlled rate. No murmur is present.LOWER EXTREMETIES: Ankle edema is not present. Varic osities are mild and no ulcerations.EARS: bilateral cerumen impactionASSESSMENT:1. Hypertension2 . Cerumen impactionPLAN:1. Instructed to follow up in 6 months.2. Otherwise, continue present med ications. 3. Labs ordered today: potassium, creatinine. Will follow up with results.4. Ear lavage. [facility] Document Id: [id number] documented in this encounter Miscellaneous Notes Miscellaneous - Elena Oliveira D.O. - 10/09/2002 3:00 PM CDT [id number] Janeth Kevin Duenas [address] [place] [address] [id number] 10/11/2002 Dear Ms. Duenas, I am writing to inform you of the results of the laboratory tests you had performed during your recent visit to the clinic. Potassium and kidney function tests are normal. It was a pleasure to see you in the clinic. If you have any further questions or problems, please contact our office at [phone]. Sincerely, Elena Oliveira D.O. Family Practice Department [facility] Source[facility] Document Id: [id number] documented in this encounter Plan of Treatment Not on filedocumented as of this encounter Visit Diagnoses Not on filedocumented in this encounter
--- OUTSIDE RECORDS SUMMARY | 2022-01-04 09:41 | XMS_ITS | Encounter Summary ---
:1935 Author Organization [facility] Address [address] [place] [address] Care Team Providers Name Role Phone Unavailable Primary Care Provider Unavailable Encounter Details Date Type Department Care Team Description 01/28/2011 Hospital Encounter [facility]X [facility] Ginna Tejada M.D. Social History Tobacco Use Types Packs/Day Years Used Date Smoking Tobacco: Never Assessed Sex Assigned at Date Recorded Not on file documented as of this encounter Medications at Time of Discharge Medication Sig Dispensed Refills Start Date End Date CALCIUM CARB/VIT Take by mouth daily. 0 1 01/21/2019 D3/MINERALS (CALCIUM-VITAMIN D ORAL) [id number] Take 1 capsule by 0 011 05/30/2018 oil 1,400 mg/5 mL liquid mouth daily. documented as of this encounter Progress Notes Ginna Tejada M.D. - 01/28/2011 12:00 AM CST [id number] REASON FOR VISIT Janeth is here because she is concerned about a skin lesion on her anterior chest. It is just at the base of her neck, this is light brown, it's about 3 cm in diameter. She says she has had it for many years, it just seems to be slowly enlarging and it never is irritated or bleeding. There is never any crusty areas. It always looks the same. Her family is concerned Faye to come in to have it checked out. She recently had a lesion on her forehead that was diagnosed as an early cancer and so that is another reason that she came in to check this out . ON EXAM As mentioned above this is light brown, uniform in color, well delineated margins, there is no induration, no areas of bleeding or scabs. ASSESSMENT / PLAN This is a mole and appears benign. I relayed that information to her, she is content with that. I did tell her if she is more concerned if it changes she could come in for a biopsy but at this time we will continue to watch it. Also cautioned against sun exposure. We looked at her preventive services, some things are listed she thinks she has had done so I will check in her paper chart and try to update her preventive services, but did give her a pneumonia shot today Ginna Tejada M.D. /keith Electronically Signed By: GINNA TEJADA MD On: 02/04/2011 02:27 PM Source: [facility] MHSDOLBEYNONRADSYS Document Id: [id number] HER OBSERVER documented in this encounter Miscellaneous Notes Miscellaneous - Ginna Tejada M.D. - 01/28/2011 8:42 AM CST Ambulatory Patient Summary [address] [address] Visit Information Name: JANETH RANGEL Current Date: 01/28/2011 08:42:37 Primary Care Provider: MARISOL MCFADDEN MD Your [...] 100 mg oral tablet) 100 mg Oral two times a day BP and hair. with meals [...] capsule) 1 cap(s) Oral once a day Your Allergies & [...] Density Once Women greater than age 64 01/28/2011 Checks for bone loss and osteoporosis. Screening Colonoscopy or Flex Sig or Occult Blood X3 11/08/2006 11/05/2016 Checks for signs of cancer of the colon. Screening Mammogram every 1 year Women 40-75 01/28/2011 X-rays of breast to check for breast cancer. Lipid Panel every 5 years Age 20-75 01/28/2011 Checks blood for good (HDL) and bad (LDL) cholesterol. Know your numbers, they are one indicator of your risk for heart attack and stroke. Vaccine: Flu every 1 year 12/29/2010 12/29/2011 Immunization to help prevent you from getting the flu strain expected to be a problem for that year's flu season. Vaccine: Tetanus every 10 years 01/15/2004 2014 Immunization to help prevent you from getting the serious disease Tetanus (Lockjaw). Your Upcoming Appointments Date Time Location Reason Provider No Appointments found Your Goals/Additional instructions: Source: [facility] POWERCHART Document Id: [id number] HER OBSERVER Miscellaneous - Ginna Tejada M.D. - 01/28/2011 8:42 AM CST Ambulatory Depart Summary [address] [address] Visit Information Name: JANETH RANGEL Current Date: 01/28/2011 08:42:36 Primary Care Provider: MARISOL MCFADDEN MD JANETH [...] 100 mg oral tablet) 100 mg Oral two times a day BP and hair. with meals [...] capsule) 1 cap(s) Oral once a day Additional Information: Yes - Current list of reconciled medications is provided and explained to the patient and/or family, guardian/caregiver. Source: [facility] POWERCHART Document Id: [id number] HER OBSERVER Miscellaneous - Janeth Og, L.P.N. - 01/28/2011 7:43 AM CST Adult Potato Chip Processing Supervisor Intake/History Adult Potato Chip Processing Supervisor Intake/History Entered On: 01/28/2011 7:47 WEATHER OBSERVER Performed On: 01/28/2011 7:43 WEATHER OBSERVER by JANETH OG ENVIRONMENTAL ENGINEER Intake Chief Complaint : has brown spot at base of neck area in front. aprx 20x 20 cm in diamiter. States she has had x 2 yrs. Had a spot on head a few weeks ago that was pre cancer and now wants this checked. Temperature Core : 36.5C(Converted to: 97.7DegF) Peripheral Pulse Rate : 66/min Respiratory Rate : 16/min Systolic Blood Pressure : 120mmHg Diastolic Blood Pressure : 56mmHg NIBP Mean : 77mmHg BP Location : Left upper extremity Heart Rhythm : Regular Actual Weight : 59.6kg(Converted to: 131lb 6oz) Weight Source : Standing scale Dosing Weight Clinic : 59.60kg JANETH OG LPN - 01/28/2011 7:43 WEATHER OBSERVER Subjective Pain Symptoms : No JANETH OG LPN - 01/28/2011 7:43 WEATHER OBSERVER Dependent Habits Tobacco Use/Currently Using : No Exposure to Tobacco Smoke : Care provider denies smoking in home Smoking Status : Never smoker JANETH OG LPN - 01/28/2011 7:43 WEATHER OBSERVER Caffeine Use Grid Caffeine Use : Current Type : Coffee Frequency : Daily JANETH OG LPN - 01/28/2011 7:43 WEATHER OBSERVER Recreational Drug Use Grid Drug Use : None JANETH OG LPN - 01/28/2011 7:43 WEATHER OBSERVER Allergy Allergies (Active) NKA Estimated Onset Date: Unspecified ; Created By: MAY DAVIDSON LPN; Reaction Status: Active ;Category: Drug ; Substance: NKA ; Type: Allergy ; Updated By: MAY DAVIDSON LPN; Reviewed Date: 01/28/2011 7:42 WEATHER OBSERVER [facility] Document Id: [id number] WEATHER OBSERVER!28 HER OBSERVER documented in this encounter Plan of Treatment Not on filedocumented as of this encounter Visit Diagnoses Not on filedocumented in this encounter
--- OUTSIDE RECORDS SUMMARY | 2022-01-04 09:41 | XMS_ITS | Encounter Summary ---
:1935 Author Organization [facility] Address [address] [place] [address] Care Team Providers Name Role Phone Unavailable Primary Care Provider Unavailable Encounter Details Date Type Department Care Team Description 04/18/2002 Hospital Encounter HX [facility] Provider, Hi storical Social History Tobacco Use Types Packs/Day Years Used Date Smoking Tobacco: Never Assessed Sex Assigned at Date Recorded Not on file documented as of this encounter Plan of Treatment Not on filedocumented as of this encounter Visit Diagnoses Not on filedocumented in this encounter
--- OUTSIDE RECORDS SUMMARY | 2022-01-04 09:41 | XMS_ITS | Encounter Summary ---
:1935 Author Organization [facility] Address [address] [place] [address] Care Team Providers Name Role Phone Unavailable Primary Care Provider Unavailable Encounter Details Date Type Department Care Team Description 11/13/2006 Hospital Encounter HX [facility] Hemalatha Pizano D.O. [address] [place], [place] [address] (Wo rk) Social History Tobacco Use Types Packs/Day Years Used Date Smoking Tobacco: Never Assessed Sex Assigned at Date Recorded Not on file documented as of this encounter Miscellaneous Notes Miscellaneous - Conversion, Historical Provider Ser - 11/13/2006 12:00 AM CDT [id number] Janeth Duenas [address] [place] [address] November 13, 2006 Dear Janeth Duenas The biopsy results from your recent colonoscopy exam at [facility] show the following: Benign (non-cancerous) tubular adenomatous polyp(s) in the colon. I recommend you continue your current medications. and have a repeat colonoscopy in five years. If you have any questions/concerns regarding this, please call [facility] at [phone]. Thank you for letting us serve you. Sincerely, Adrianna Baron D.O./casey [facility] Document Id: [id number] documented in this encounter Plan of Treatment Not on filedocumented as of this encounter Visit Diagnoses Not on filedocumented in this encounter
--- OUTSIDE RECORDS SUMMARY | 2022-01-04 09:41 | XMS_ITS | Encounter Summary ---
:1935 Author Organization [facility] Address [address] [place] [address] Care Team Providers Name Role Phone Unavailable Primary Care Provider Unavailable Encounter Details Date Type Department Care Team Description 11/08/2006 Hospital Encounter HX NO MAPPING Rodolfo Zapata am, M.D. [address] [place], [place] [phone] (Wo rk) Social History Tobacco Use Types Packs/Day Years Used Date Smoking Tobacco: Never Assessed Sex Assigned at Date Recorded Not on file documented as of this encounter Plan of Treatment Not on filedocumented as of this encounter Visit Diagnoses Not on filedocumented in this encounter
--- OUTSIDE RECORDS SUMMARY | 2022-01-04 09:41 | XMS_ITS | Encounter Summary ---
:1935 Author Organization [facility] Address [address] [place] [address] Care Team Providers Name Role Phone Unavailable Primary Care Provider Unavailable Encounter Details Date Type Department Care Team Description 01/08/2008 Hospital Encounter [facility]X [facility] Manuel Solares, INPT/OBSRV M.D. [address] [place] [phone] (Wo rk) Social History Tobacco Use Types Packs/Day Years Used Date Smoking Tobacco: Never Assessed Sex Assigned at Date Recorded Not on file documented as of this encounter Plan of Treatment Not on filedocumented as of this encounter Visit Diagnoses Not on filedocumented in this encounter
--- OUTSIDE RECORDS SUMMARY | 2022-01-04 09:41 | XMS_ITS | Encounter Summary ---
:1935 Author Organization [facility] Address [address] [place] [address] Care Team Providers Name Role Phone Unavailable Primary Care Provider Unavailable Encounter Details Date Type Department Care Team Description 04/15/2011 Hospital Encounter HX [facility] Ginna Tejada M.D. Social History Tobacco Use Types Packs/Day Years Used Date Smoking Tobacco: Never Assessed Sex Assigned at Date Recorded Not on file documented as of this encounter Last Filed Vital Signs Vital Sign Reading Time Taken Comments Blood Pressure 160/60 04/15/2011 3:14 PM POSTAL TRANSPORTATION CLERK Pulse 68 04/15/2011 3:14 PM POSTAL TRANSPORTATION CLERK Temperature - - Respiratory Rate 16 04/15/2011 3:14 PM POSTAL TRANSPORTATION CLERK Oxygen Saturation - - Inhaled Oxygen Concentration - - Weight 61.1 kg (134 lb 11.2 oz) 04/15/2011 3:14 PM POSTAL TRANSPORTATION CLERK Height 162 cm (5' 3.78) 04/15/2011 3:14 PM POSTAL TRANSPORTATION CLERK Body Mass Index 23.28 04/15/2011 3:14 PM POSTAL TRANSPORTATION CLERK documented in this encounter Medications at Time of Discharge Medication Sig Dispensed Refills Start Date End Date CALCIUM CARB/VIT Take by mouth daily. 0 1 01/21/2019 D3/MINERALS (CALCIUM-VITAMIN D ORAL) [id number] Take 1 capsule by 0 011 05/30/2018 oil 1,400 mg/5 mL liquid mouth daily. documented as of this encounter Progress Notes Ginna Tejada M.D. - 04/15/2011 12:00 AM CST [id number] CHIEF COMPLAINT/REASON FOR VISIT Janeth is a 76-year-old woman who comes in with some questions about her medications and because she has been having some vague anterior chest pain. She says it is sometimes in the anterior chest, sometimes in the left shoulder and sometimes in the right shoulder. It does not go into her neck. Sometimes she feels it in the back of the left shoulder. It only lasts a few minutes. It is not very strong. It does not seem to be related to any activity. It never happens at night when she is sleeping or resting. She maybe has it once or twice a day. She denies any shortness of breath with it. Denies any cardiac palpitations. She has never had anything like this before. She recently stopped taking her spironolactone because a hair loss specialist told her that that could cause hair loss. Her blood pressure had been well controlled on this, but now today when she comes in it is elevated and she has been off the spironolactone for about a month. PHYSICAL EXAMINATION On exam, right now she says she is not having any pain. She does not appear to be in any acute distress. She is afebrile. Heart rate 68. Blood pressure 160/60. Head is normocephalic, atraumatic. Neck is supple without lymphadenopathy. No carotid bruits. Lungs are clear. Heart is regular without murmur. Skin is warm and dry. No ankle edema. No particular areas of tenderness to pressure over her anterior chest. DIAGNOSTICS: EKG shows normal sinus rhythm with some evidence of left ventricular hypertrophy. IMPRESSION/REPORT/PLAN Anterior chest pain. I am not quite sure about the etiology of this. It may be anxiety. Hypertension. PLAN: We will have her go back on the spironolactone. If she has recurrence of the chest pain, particularly if it lasts, she should come in and have it checked again. Also, she is due for a lipid panel and she will return fasting for that test. Ginna Tejada M.D. /leida Electronically Signed By: GINNA TEJADA MD On: 04/19/2011 02:26 PM Source: [facility] MHSDOLBEYNONRADSYS Document Id: [id number] AL TRANSPORTATION CLERK documented in this encounter Miscellaneous Notes Miscellaneous - Ginna Tejada M.D. - 04/15/2011 4:00 PM CST Ambulatory Patient Summary [facility] [address] [place] [address] Visit Information Name: JANETH RANGEL Current Date: 04/15/2011 16:00:36 Primary Care Provider: MARISOL MCFADDEN MD Your [...] Test/Treatment Last Done Next Due Additional Information Health Assessment every 1 year 04/15/2011 Screening Bone Density Once Women greater than age 64 03/18/2011 Completed Checks for bone loss and osteoporosis. Screening Colonoscopy or Flex Sig or Occult Blood 11/08/2006 11/05/2016 Checks for signs of cancer of the colon. Screening Mammogram every 1 year Women 40-75 03/18/2011 03/18/2012 X-rays of breast to check for breast cancer. Vaccine: Flu every 1 year 12/29/2010 12/29/2011 Immunization to help prevent you from getting the flu strain expected to be a problem for that year's flu season. Vaccine: Pneumococcal Once 01/28/2011 Completed Immunization to help prevent you from getting 23 kinds of pneumococcal bacteria that can lead to pneumonia, bacteremia and meningitis. Vaccine: Tetanus every 10 years 01/15/2004 2014 Immunization to help prevent you from getting the serious disease Tetanus (Lockjaw). Your Upcoming Appointments Date Time Location Reason Provider 04/16/2011 08:00 [facility] Lab Your Goals/Additional instructions: Source: [facility] POWERCHART Document Id: [id number] AL TRANSPORTATION CLERK Miscellaneous - Ginna Tejada M.D. - 04/15/2011 4:00 PM CST Ambulatory Depart Summary [address] [address] Visit Information Name: JANETH RANGEL Current Date: 04/15/2011 16:00:35 Attending Provider: GINNA TEJADA MD Primary Care Provider: MARISOL MCFADDEN MD [...] cap(s) Oral once a day Additional Information: Source: [facility] POWERCHART Document Id: [id number] AL TRANSPORTATION CLERK Miscellaneous - Kristen Jones L.PKaiNKai - 04/15/2011 3:14 PM CST [facility] [employer] [facility] Intake/History [facility] Intake/History Entered On: 04/15/2011 15:17 POSTAL TRANSPORTATION CLERK Performed On: 04/15/2011 15:14 POSTAL TRANSPORTATION CLERK by KRISTEN JONES Intake Chief Complaint : left arm/chest pain the last few days. occurs at rest or with activity. it is intermittent Temperature Core : 37.0C(Converted to: 98.6DegF) Peripheral Pulse Rate : 68/min Respiratory Rate : 16/min Heart Rhythm : Regular Systolic Blood Pressure : 160mmHg (HI) Diastolic Blood Pressure : 60mmHg NIBP Mean : 93mmHg BP Location : Left upper extremity Blood Pressure Cuff Size : Regular Height : 162cm(Converted to: 5ft 4inch(es), 63.78inch(es)) Actual Weight : 61.1kg(Converted to: 134lb 11oz) Dosing Weight Clinic : 61.10kg Clinic BSA : 1.66 Body Mass Index : 23.28kg/m2 KRISTEN JONES - 04/15/2011 15:14 POSTAL TRANSPORTATION CLERK Subjective Pain Symptoms : No KRISTEN JONES 04/15/2011 15:14 POSTAL TRANSPORTATION CLERK Dependent Habits Tobacco Use/Currently Using : No Exposure to Tobacco Smoke : Care provider denies smoking in home Smoking Status : Never smoker KRISTEN JONES 04/15/2011 15:14 POSTAL TRANSPORTATION CLERK Caffeine Use Grid Caffeine Use : Current Type : Coffee Frequency : Daily KRISTEN JONES 04/15/2011 15:14 POSTAL TRANSPORTATION CLERK Recreational Drug Use Grid Drug Use : None KRISTEN JONES 04/15/2011 15:14 POSTAL TRANSPORTATION CLERK Allergy Allergies (Active) NKA Estimated Onset Date: Unspecified ; Created By: MAY DAVIDSON LPN; Reaction Status: Active ;Category: Drug ; Substance: NKA ; Type: Allergy ; Updated By: MAY DAVIDSON LPN; Reviewed Date: 04/15/2011 15:12 POSTAL TRANSPORTATION CLERK Source: [facility] [employer]Now (now [employer]) Document Id: [id number] POSTAL TRANSPORTATION CLERK!31 AL TRANSPORTATION CLERK documented in this encounter Plan of Treatment Not on filedocumented as of this encounter Visit Diagnoses Not on filedocumented in this encounter
--- OUTSIDE RECORDS SUMMARY | 2022-01-04 09:41 | XMS_ITS | Encounter Summary ---
:1935 Author Organization [facility] Address [address] [place] [address] Care Team Providers Name Role Phone Unavailable Primary Care Provider Unavailable Encounter Details Date Type Department Care Team Description 04/04/[address] [facility] Elena Oliveira D.OKai [address] [place], [place] [address] (Wo rk) Social History Tobacco Use Types Packs/Day Years Used Date Smoking Tobacco: Never Assessed Sex Assigned at Date Recorded Not on file documented as of this encounter Progress Notes Conversion, Historical Provider Ser - 04/04/2002 9:00 AM CST [id number] Addended by: SIENNA GRIMM on: 06/03/2002,6:56 AM Comment: remove dx and procedure per dictat ion pt provider does not cover ear lavageModules accepted: Order Summary, Progress NotesMsKai keller is a 67 year old female who presents today for a annual physical. She presents without complai nt. Review of patient's past medical history indicates: BENIGN HYPERTENSION PURE HYPERCHOLESTEROLEM Review of patient's past surgical history indicates: TOTAL ABDOM HYSTERECTOMY 1969' Com ment: Hysterectomy, Total Abdominal (bleeding) - benignReview of patient's family his tory indicates: Diabetes Mother Hypertension Mother Alzheimers Father Comment: decea sed, no other chronic illnessesSOCIAL HISTORY:Marital Status: MarriedOccupation: helps w ith logging operationSmoking: noAlcohol: sociallyNumber of children: 4Current prescriptions: ACCUPRIL 20 MG OR TABS one daily for blood pressureATENOLOL 50 MG OR TABS one daily for blood pressu reHYDROCHLOROTHIAZIDE 25 MG OR TABS one daily for blood pressureALLERGIES:No Known Drug Allergies REVIEW OF SYSTEMS:CONSTITUTIONAL: Denies fever, weight loss or weight gain, fatigue.EYES: does g et regular visual check-ups. does wear corrective lenses. Denies blurred vision, visual loss or eye p ain.ENT: Shin ear pain, sinus congestion, recurrent infections, frequent sore throat, hoarseness. H ears adequate, and sees the dentist regularly.CARDIOVASCULAR: Denies chest pain, orthopnea, paroxysm al nocturnal dyspnea, palpitations, or edema.RESPIRATORY: Denies wheezing, asthma, or dyspnea. does not have cough.GASTROINTESTINAL: good appetite, denies abdominal pain, dysphagia, nausea, vomiting, diarrhea, constipation, melana, or rectal bleeding.GENITOURINARY: Denies dysuria, incontinence, noct uria, hematuria. No postmenopausal bleeding, no vaginal discharge or itching, no stress or urge inco ntinence.MUSCULOSKELETAL: does not have joint pain. does not have muscle pain.NEUROLOGICAL: does n ot have headaches. Denies seizures, syncope, tremor, dizziness, or weakness.SKIN: Denies rashes, royal picious moles or non healing wounds.ENDOCRINE: Denies thyroid trouble, denies heat/cold intolerance, or hair loss.LYMPHATIC: Denies swollen glands/nodes. No previous blood disorders.PHYSICAL EXAM:Stephany Duenas is well nourished, good hydration. In no distress. Pleasant, using appropriate conversat ion, oriented. good hygiene. Cooperative with exam.VITALS: BP 100/70 Pulse 72 Temp 95.9 Ht 5' 3 (1.600m) Wt 146 lbs (66.225 kg) LMP Hysterectomy EYES: Conjunctiva are clear. Pupils equal an d reactive. Extra ocular movements intact, without ptosis.ENT: Ear canals impacted with cerumen. Nos e, without drainage. Throat shows that tonsils are present and are not enlarged. Post pharynx is not inflammed.NECK: Thyroid Normal. LYMPHATIC: Lymph nodes normal in cervical, supraclavicular, submand ibular, axillary and inguinal areas.BREASTS: no suspicious skin changes, no masses, no nodes. LUNGS : Normal respiratory effort, clear to auscultation in anterior and posterior woods. No wheeze. No ra les.CARDIOVASCULAR: regular rate and rhythm, without murmur and no extra beats. Edema is not present . Varicose vein disease is present and is scant. Dorsalis pedis pulses are Normal.ABDOMEN: Bowels s ounds normal. Non distended, no mass, no hepatosplenomagaly. No bruits with previous surgical scar quinonez prapubic due to hysterectomy.GENITALIA: normal external genitalia without lesion. Cervix is surgica lly absent. Bimanual exam is normal without mass or tenderness, adnexa also without mass or tenderne ss. Pap smear obtained with cytobrush. RECTAL: There is not external hemorrhoids, and no mass on dig ital exam.MUSCULOSKELETAL: No swollen or erythematous joints. Kyphosis is not present.SKIN: No rash es, ulcerations or suspicious moles. ASSESSMENT:Satisfactory Annual PhysicalHypertension: well co ntrolledCerumen Impaction PLAN:The following procedures have been ordered: PAP, mammogram, urine dipstick and colonoscopy.The following labs have been ordered: K. Other labs from 11/2001 reviewed and are satisfactory.Ear lavage.Return for BP check twice in next month and if continues low, will reduce medication. [facility] Document Id: [id number] documented in this encounter Miscellaneous Notes Miscellaneous - Elena Oliveira D.O. - 04/04/2002 9:00 AM CST [id number] Janeth Duenas [address] [place] [address] [id number] 04/13/2002 Dear Ms. Duenas, I am writing to inform you of the results of the laboratory tests you had performed during your recent visit to the clinic. Your potassium is normal. Your cervical cancer screening test (PAP smear) has been evaluated by the pathologist and is normal. It was a pleasure to see you in the clinic. If you have any further questions or problems, please contact our office at [phone]. Sincerely, Elena Oliveira D.O. Family Practice Department [facility] Source: [facility] RWHXTRANSXRTFSYS Document Id: [id number] Electronically signed by Conversion, [facility] [employer] [address] [id number] at 08/09/2016 12:30 AM CDT documented in this encounter Plan of Treatment Not on filedocumented as of this encounter Visit Diagnoses Not on filedocumented in this encounter
--- OUTSIDE RECORDS SUMMARY | 2022-01-04 09:41 | XMS_ITS | Encounter Summary ---
:1935 Author Organization [facility] Address [address] [place] [address] Care Team Providers Name Role Phone Unavailable Primary Care Provider Unavailable Encounter Details Date Type Department Care Team Description 04/30/2002 Hospital Encounter [facility]X [facility] Provider, Hi storical Social History Tobacco Use Types Packs/Day Years Used Date Smoking Tobacco: Never Assessed Sex Assigned at Date Recorded Not on file documented as of this encounter Plan of Treatment Not on filedocumented as of this encounter Visit Diagnoses Not on filedocumented in this encounter
--- OUTSIDE RECORDS SUMMARY | 2022-01-04 09:41 | XMS_ITS | Encounter Summary ---
:1935 Author Organization [facility] Address [address] [place] [address] Care Team Providers Name Role Phone Unavailable Primary Care Provider Unavailable Encounter Details Date Type Department Care Team Description 05/02/2002 [facility] Elena Oliveira D.O. [address] [place], [place] [address] (Wo rk) Social History Tobacco Use Types Packs/Day Years Used Date Smoking Tobacco: Never Assessed Sex Assigned at Date Recorded Not on file documented as of this encounter Plan of Treatment Not on filedocumented as of this encounter Visit Diagnoses Not on filedocumented in this encounter
--- OUTSIDE RECORDS SUMMARY | 2022-01-04 09:41 | XMS_ITS | Encounter Summary ---
:1935 Author Organization [facility] Address [address] [place] [address] Care Team Providers Name Role Phone Unavailable Primary Care Provider Unavailable Encounter Details Date Type Department Care Team Description 01/04/2007 Hospital Encounter HX [facility] INPT/OBSRV Chantel Costello M.D. [address] [place], [place] [address] (Wo rk) Social History Tobacco Use Types Packs/Day Years Used Date Smoking Tobacco: Never Assessed Sex Assigned at Date Recorded Not on file documented as of this encounter Plan of Treatment Not on filedocumented as of this encounter Visit Diagnoses Not on filedocumented in this encounter
--- OUTSIDE RECORDS SUMMARY | 2022-01-04 09:41 | XMS_ITS | Encounter Summary ---
:1935 Author Organization [facility] Address [address] [place] [address] Care Team Providers Name Role Phone Unavailable Primary Care Provider Unavailable Encounter Details Date Type Department Care Team Description 10/11/2011 Hospital Encounter HX [facility] ED Semaj Hunt M.D. [address] [place] [address] (Wo rk) Social History Tobacco Use Types Packs/Day Years Used Date Smoking Tobacco: Never Assessed Sex Assigned at Date Recorded Not on file documented as of this encounter Last Filed Vital Signs Vital Sign Reading Time Taken Comments Blood Pressure 134/61 10/11/2011 7:11 PM CDT Pulse 63 10/11/2011 7:11 PM CDT Temperature - - Respiratory Rate 20 10/11/2011 7:11 PM CDT Oxygen Saturation - - Inhaled Oxygen Concentration - - Weight - - Height - - Body Mass Index - - documented in this encounter Discharge Summaries Andrzej Virk RKaiN. - 10/11/2011 7:56 PM CDT ED Discharge Instructions [id number] [place] [address] Name: JUAN J RANGEL Date of : 1935 12:00 AM Visit Date: 10/11/2011 6:16 PM Address: [address] [facility] [id number] Primary Care Provider: MARISOL MCFADDEN MD IMPORTANT: [facility] in [place] would like to thank you for allowing us to assist you with your healthcare needs. The following includes patient education materials and informationregarding your injury/illness. Chief Complaint: Chest pain; CHEST PAIN Follow-Up Instructions: With: Address: When: MARISOL MCFADDEN [address] [place] [address] Business (1) Within As Needed Comments: Patient Education Materials: [id number] CHEST PAIN, NONCARDIAC Based on your visit today, the exact cause of your chest pain is not certain. Your condition does not seem serious and your pain does not appear to be coming from your heart. However, sometimes the signs of a serious problem take more time to appear. Therefore, please watch for the warning signs listed below. HOME CARE: 1. Rest today and avoid strenuous activity. 2. Take any prescribed medicine as directed. FOLLOW [...] ?? Weakness, dizziness, or fainting ?? Fever over 100.0?? F (37.8?? C) Swelling, pain or redness in one leg ?? [id number] [employer], [address] [place] [address], [place] [id number]. All rights reserved. This information is not intended as a substitute for professional medical care. Always follow your healthcare professional's instructions. ED Tests and Procedures: Order Status Automated Diff-5 Part Completed Oxygen - ER Ordered Basic Metabolic Panel Completed CBC (includes Auto Differential) Completed CKMB Completed Creatine Kinase Completed PT/INR Completed PTT Completed Troponin T Completed XR Chest 1 view portable Completed Discharge Prescriptions & Home Medications: Medication/Strength Dose Route Frequency Indications/Special Instructions/Comments spironolactone [...] until you contact your provider for clarification. Medication Reconciliation: Reconciliation is a process of identifying the most accurate list of all medications a patient is taking - including name, dosage, frequency, and route - and using this list to provide to the patient information about how to take those medications. JUAN J RANGEL or shahram has reviewed the home medications [...] physician. Patient Signature or Responsible Alliance Party/Relationship Date/Time Provider Signature Date/Time Medication Reconciliation: Reconciliation is a process of identifying the most accurate list of all medications a patient is taking - including name, dosage, frequency, and route - and using this list to provide to the patient information about how to take those medications. JUAN J RANGEL or shahram has reviewed the home medications [...] physician. Patient Signature or Responsible Alliance Party/Relationship Date/Time Provider Signature Date/Time This document has images extracted. Please consider using [employer] for all your patient education needs. Source: [facility] POWERCHART Document Id: [id number] Andrzej Virk R.N. - 10/11/2011 7:56 PM CDT ED Depart Summary [facility] Emergency Department Clinical Discharge Summary PERSON INFORMATION Name JUAN J RANGEL Age 76 Years 1935 12:00 AM Sex Female Language Yoruba PCP MARISOL MCFADDEN MD Marital Status Visit Id Visit Reason Chest pain; CHEST PAIN Specialty Enc Type Emergency Med Service Emergency Medicine Referred by Track Group [facility] ED Discharge 10/11/2011 7:56 PM Tracking Id [id number] Checkout 10/11/2011 7:56 PM Checkin 10/11/2011 6:16 PM Acuity 3 -Urgent Dispo Type * Discharged to Home or Self Care Arrival 10/11/2011 6:16 PM Reg Status LOS 000 01:40 Address: [address] [place] [phone] Comment: PROVIDER INFORMATION Provider Role Provider Contact Time DIAGNOSIS Chest pain, unspecified Comment: PATIENT EDUCATION INFORMATION Instructions: CHEST PAIN, NonCardiac Follow up: With: Address: When: MARISOL MCFDADEN [address] [place] [address] [phone] [facility] (0) Within As Needed Comments: Source: [facility] [employer] Document Id: [id number] documented in this encounter Medications at Time of Discharge Medication Sig Dispensed Refills Start Date End Date CALCIUM CARB/VIT Take by mouth daily. 0 1 01/21/2019 D3/MINERALS (CALCIUM-VITAMIN D ORAL) [id number] Take 1 capsule by 0 011 05/30/2018 oil 1,400 mg/5 mL liquid mouth daily. documented as of this encounter Nursing Notes Huan Hunt M.D. - 10/11/2011 7:48 PM CDT ED Pain Assessment ED Pain Assessment Entered On: 10/11/2011 19:49 CDT Performed On: 10/11/2011 19:48 CDT by HUAN HUNT MD Pain Assessment Pain Symptoms : Yes Pain Medication Requested : No HUAN HUNT MD - 10/11/2011 19:48 CDT Source: [facility] Oris4CHART Document Id: [id number] Fawad Ruiz R.N. - 10/11/2011 6:40 PM CDT ED Primary Assessment ED Primary Assessment Entered On: 10/11/2011 18:42 CDT Performed On: 10/11/2011 18:40 CDT by FAWAD RUIZ RN Reason For Visit Problems(Active) Hypertension Name of Problem: Hypertension ; Onset Date: 1990 ; Recorder: MAY DAVIDSON LPN; Confirmation: Confirmed ; Classification: Nursing ; Code: 1231 ; Contributor System: Artify It ; Last Updated: 11/09/2010 7:21 CDT ; Life Cycle Date: 11/09/2010 ; Life Cycle Status: Active ; Responsible Provider: MAY DAVIDSON LPN; Vocabulary: ICD-9-CM Tick Bite Name of Problem: Tick Bite ; Onset Date: 05/25/2011 ; Recorder: AURORA SHAW III, MD; Confirmation: Confirmed ; Classification: Medical ; Code: 1231 ; Last Updated: 05/25/2011 8:57 CDT ; Life Cycle Status: Active ; Responsible Provider: AURORA SHAW III, MD; Vocabulary: ICD-9-CM Diagnoses(Active) Chest pain Date: 10/11/2011 ; Diagnosis Type: Reason For Visit ; Confirmation: Complaint of ; Clinical Dx: Chest pain ; Classification: Medical ; Clinical Service: Emergency medicine ; Code: PNED ; Probability: 0 ; Diagnosis Code: [id number] Triage Chief Complaint Description : 76 year old female presents with chest pain for 1 week Information Given By : Patient Accompanied By : Spouse Mode of Arrival ED : Private vehicle Track : Medical Vital Signs Assessed : Yes FAWAD RUIZ RN - 10/11/2011 18:40 CDT Vital Signs Temperature Core : 36.8C(Converted to: 98.2DegF) Peripheral Pulse Rate : 72/min Respiratory Rate : 16/min Systolic Blood Pressure : 137mmHg Diastolic Blood Pressure : 72mmHg NIBP Mean : 94mmHg BP Location : Left upper extremity SpO2 : 96% Oxygen Therapy : Room air FAWAD RUIZ RN - 10/11/2011 18:40 CDT Pain Assessment Pain Symptoms : Yes FAWAD RUIZ RN - 10/11/2011 18:40 CDT Pain Pain Assessment Grid Pain 1 Location : Chest Laterality : Left Time Pattern : Constant Onset : Gradual Quality : Aching, Pressure Pain Radiation : Yes Radiation Characteristics : into back FAWAD RUIZ RN - 10/11/2011 18:40 CDT ED Physician Notification Time ED Physician Notification Time : 10/11/2011 18:42 CDT FAWAD RUIZ RN - 10/11/2011 18:40 CDT QUIN DCP GENERIC CODE Tracking Acuity : 3 -Urgent Tracking Group : [facility] ED FAWAD RUIZ RN - 10/11/2011 18:40 CDT Allergy Allergies (Active) NKA Estimated Onset Date: Unspecified ; Created By: MAY DAVIDSON LPN; Reaction Status: Active ;Category: Drug ; Substance: NKA ; Type: Allergy ; Updated By: MAY DAVIDSON LPN; Reviewed Date: 10/05/2011 13:28 CDT Respiratory Airway : Patent Respirations : Unlabored Respiratory Pattern : Regular Oxygen Therapy : Room air FAWAD RUIZ RN - 10/11/2011 18:40 CDT Cardiovascular Heart Rhythm : Regular Skin Color : Normal for ethnicity Skin Description : Dry Skin Temperature : Warm FAWAD RUIZ RN - 10/11/2011 18:40 CDT Neurological Last Well Time Known : Not applicable Level of Consciousness : Alert Orientation : Oriented x 3 Characteristics of Speech : Appropriate for age Neuro Patient Stated Symptoms : None Gait : Steady FAWAD RUIZ RN - 10/11/2011 18:40 CDT ED Psychosocial Affect/Behavior : Calm Domestic Abuse Concerns : None FAWAD RUIZ RN - 10/11/2011 18:40 CDT Gastrointestinal Nutrition ED : Adequate FAWAD RUIZ RN - 10/11/2011 18:40 CDT Musculoskeletal Fall Prevention Education Provided : Yes FAWAD RUIZ RN - 10/11/2011 18:40 CDT Social Habits Tobacco Use/Currently Using : No Tobacco Use/Last 12 months : No Exposure to Tobacco Smoke : Care provider denies smoking in home Smoking Status : Never smoker FAWAD RUIZ RN - 10/11/2011 18:40 CDT Tobacco Use Grid Last Use : never FAWAD RUIZ RN - 10/11/2011 18:40 CDT Recreational Drug Use Grid Drug Use : None FAWAD RUIZ RN - 10/11/2011 18:40 CDT Source: [facility] [employer] Document Id: [id number] documented in this encounter ED Notes Huan Hunt M.D. - 10/11/2011 7:50 PM CDT Chest pain 76 y/o F with PMH of HTN presents with left sided chest pain over the last week. This has been intermittent with pain at greatest 5/10, at other times no pain. Not related to exertional activities, noanginal symptoms previously. Has been more persistent over last 3 days. Deep ache in quality. states has radiated to left arm at one point, but not currently. When asked about previous symptomsof anxiety or heavy burdens states that has had a lot of healthy problems and a daughter going through marital issues has weighed heavily on her mind over the last few weeks and has had small instances of anxiety in past. No panic disorder or attacks. ROS: Denies CM, nausea, vomiting, weakness, vision changes, palpitations, speech difficulty. PMH: Hypertension treated with 3 drugs PSxH: Hysterectomy SH: per HPI, here with this evening. No smoking PE: VS per nursing records, stable Gen: alert, oriented, normal speech and affect HEENT: CN 2-12 intact, normocephalic, symmetric facies CV: RRR, 2/6 systolic ejection murmur best over upper lright sternal border. No carotid bruits, no JVD Lungs: CTA Abd: soft, non distended Extremities: Normal strength and sensation throughout Labs: Normal cardiac enzymes, CBC, INR. ECG: high LVH voltage, but no ST changes or T wave inversions Radiographs: CXR normal except for minimal aortic calcifications Dx: Chest pain Plan: -No acute cardiac problem -Already scheduled for stress test on Monday -Continue HTN medications -Return to ED for unremitting chest pain or severe chest pain worse than normal, any changes in vision, strength All questions answered and patient was discharged in a stable condition Electronically Signed By: HUAN HUNT MD On: 10/11/2011 07:59 PM Source: [employer] Document Id: [id number] Huan Hunt M.D. - 10/11/2011 7:48 PM CDT ED Disposition Summary ED Disposition Summary Entered On: 10/11/2011 19:48 CDT Performed On: 10/11/2011 19:48 CDT by HUAN HUNT MD ED Disposition Summary Printed Discharge Instructions Given to Patient : Yes HUAN HUNT MD - 10/11/2011 19:48 CDT Source: [employer] Document Id: [id number] Andrzej Virk RKaiNKai - 10/11/2011 7:45 PM CDT ED Treatments and Procedures ED Treatments and Procedures Entered On: 10/11/2011 19:46 CDT Performed On: 10/11/2011 19:45 CDT by ANDRZEJ VIRK RN Peripheral IV Peripheral IV Assess/Intervention Grid Peripheral IV #1 Laterality : Right Catheter Size : 18 Comments (Comment: IV removed with cath intact [ANDRZEJ VIRK RN - 10/11/2011 19:45 CDT] ) ANDRZEJ VIRK RN - 10/11/2011 19:45 CDT Source: [facility] [employer] Document Id: [id number] documented in this encounter Miscellaneous Notes Miscellaneous - Andrzej Virk RMatti - 10/11/2011 7:50 PM CDT Valuables/Belongings Valuables/Belongings Entered On: 10/11/2011 19:50 CDT Performed On: 10/11/2011 19:50 CDT by ANDRZEJ VIRK RN Valuables/Belongings Valuables/Belongings Grid Valuables with Patient Clothes, Patient Valuables : Pants, Shirt, Shoes, Undergarments Jewelry : Earrings, Rings, Watch Monetary Items : Purse ANDRZEJ VIRK RN - 10/11/2011 19:50 CDT Home Medication Disposition : None brought in with patient ANDRZEJ VIRK RN - 10/11/2011 19:50 CDT Source: [employer] Document Id: [id number] Miscellaneous - Andrzej Virk R.N. - 10/11/2011 6:16 PM CDT Facility Charge Ticket Facility Charge Ticket Entered On: 10/11/2011 19:50 CDT Performed On: 10/11/2011 18:16 CDT by ANDRZEJ VIRK RN Facility Charge TVL Level for Facility Charge Ticket : Level 5 Mode of Arrival ED : Private vehicle [facility] Mode of Arrival Interpreted : Standard [facility] Process Management : None [facility] Order Management : EKG, RT, Ancillary Services, Xray - plain films, Lab tests 30 Minutes Critical Care : No [facility] Nursing Assessment : Triage and 3-5 nursing assessments [facility] Disposition : Discharge [facility] Total Points with Diagnosis Control : 15 [facility] Visit Level : 92493 Level 5 ANDRZEJ VIRK RN - 10/11/2011 19:50 CDT Source: [employer] Document Id: [id number] documented in this encounter Plan of Treatment Not on filedocumented as of this encounter Procedures Procedure Name Priority Date/Time Associated Comments Diagnosis CREATINE KINASE (CK) MB Routine 10/11/2011 6:45 PM Results for this ISOENZYME, S CDT procedure are i n the results section. AUTOMATED DIFFERENTIAL, Routine 10/11/2011 6:45 PM Results for this B CDT procedure are i n the results section. ACTIVATED PARTIAL Routine 10/11/2011 6:45 PM Resu lts for this THROMBOPLASTIN TIME CDT procedur e are in (APTT), P the results section. PROTHROMBIN TIME (PT), Routine 10/11/2011 6:45 PM Results for this P CDT procedure are i n the results section. CBC WITH DIFFERENTIAL, Routine 10/11/2011 6:45 PM Results for this B CDT procedure are i n the results section. TROPONIN T, 5TH GEN, P Routine 10/11/2011 6:45 PM Results for this CDT procedure are i n the results section. CREATINE KINASE (CK), S Routine 10/11/2011 6:45 PM Results for this CDT procedure are i n the results section. BASIC METABOLIC PANEL, Routine 10/11/2011 6:45 PM Results for this S/P CDT procedure are i n the results section. documented in this encounter Results Automated Differential (10/11/2011 6:45 PM CDT) P athologist Signature Neutro % 62.4 42.0 - POWERCHART 77.0 Lymphocytes % 24.8 23.0 - POWERCHART 44.0 HX Freestone % 9.3 2.0 - 18.0 POWERCHART HX Eos % 3.1 1.0 - 5.0 POWERCHART HX Baso % 0.4 0.0 - 1.0 POWERCHART Absolute 4.70 1.70 - POWERCHART Neutrophils 7.00 109L Lymphocytes 1.87 0.90 - POWERCHART 2.90 X109L Monocytes 0.70 0.30 - POWERCHART 0.90 X109L Eosinophils 0.23 0.05 - POWERCHART 0.50 X109L Absolute 0.03 0.00 - POWERCHART Basophil 0.30 X109L Specimen Anatomical Collection Method Collection Time Receive d Time (Source) Location / / Volume Laterality Blood 10/11/2011 6:45 PM 2 6:45 CDT PM CDT Huan Hunt M.D. LAB BLOOD ADD-ON Performing Organization Address City/State/ZIP Code Phon e Number POWERCHART (ABNORMAL) CBC with Differential (10/11/2011 6:45 PM CDT) Patholo gist Method Time Signature Leukocytes 7.5 3.4 - 10.5 POWERCHART X109L Erythrocytes 3.87 (L) 3.90 - POWERCHART 5.03 V1688X Hemoglobin 12.2 12.0 - POWERCHART 15.5 GDL Hematocrit 34.9 34.9 - POWERCHART 44.5 MCV 90.2 82.0 - POWERCHART 98.0 FL HX RDW 11.6 (L) 11.9 - POWERCHART 15.5 Platelet Count 283 150 - 450 POWERCHART X109L HXDifferential? Auto POWERCHART Specimen (Source) Anatomical Collection Method Collection Time Re ceived Time Location / / Volume Laterality Blood 10/11/2011 6:45 PM CDT Huan Hunt M.D. LAB BLOOD ADD-ON Performing Organization Address [facility] Phon e Number POWERCHART APTT (Activated Partial Thromboplastin Time) (10/11/2011 6:45 PM CDT) Analysis Performed At Patho logist Time Signature Prothrombin 26.1 23.0 - 31.0 POWERCHART Time, P SECONDS Specimen (Source) Anatomical Collection Method Collection Time Re ceived Time Location / / Volume Laterality Blood 10/11/2011 6:45 PM CDT Huan Hunt M.D. LAB BLOOD ADD-ON Performing Organization Address [facility]/ZIP Code Phon e Number POWERCHART PT (Prothrombin Time) with INR (10/11/2011 6:45 PM CDT) Analysis Performed At Patho logist Time Signature Prothrombin 10.6 9.5 - 11.5 POWERCHART Time, P SECONDS INR 1.01 0.80 - 1.30 POWERCHART Specimen (Source) Anatomical Collection Method Collection Time Re ceived Time Location / / Volume Laterality Blood 10/11/2011 6:45 PM CDT Huan Hunt M.D. LAB BLOOD ADD-ON Performing Organization Address City/[facility]/ZIP Code Phon e Number POWERCHART Troponin T (10/11/2011 6:45 PM CDT) athologist Signature Troponin T, S <0.01 0.00 - 0.10 POWERCHART NGML Comment: 0.03 ? 0.1 ng/mL Intermediate Zone Specimen (Source) Anatomical Collection Method Collection Time Re ceived Time Location / / Volume Laterality Blood 10/11/2011 6:45 PM CDT Huan Hunt M.D. LAB BLOOD ADD-ON Performing Organization Address City/State/ZIP Code Phon e Number POWERCHART CK (Creatine Kinase) (10/11/2011 6:45 PM CDT) athologist Signature Creatine Kinase 141 21 - 232 UL POWERCHART (CK), S Specimen (Source) Anatomical Collection Method Collection Time Re ceived Time Location / / Volume Laterality Blood 10/11/2011 6:45 PM CDT Huan Hunt M.D. LAB BLOOD ADD-ON Performing Organization Address City/[facility]/ZIP Code Phon e Number POWERCHART Creatine Kinase (CK) MB Isoenzyme (10/11/2011 6:45 PM CDT) athologist Signature Creatine 3.9 0.1 - 6.2 POWERCHART Kinase(CK) MB NGML Isoenzyme, S Specimen (Source) Anatomical Collection Method Collection Time Re ceived Time Location / / Volume Laterality Blood 10/11/2011 6:45 PM CDT Huan Hunt M.D. LAB BLOOD ADD-ON Performing Organization Address City/[facility]/ZIP Code Phon e Number POWERCHART (ABNORMAL) BMP (Basic Metabolic Panel) (10/11/2011 6:45 PM CDT) P athologist Signature Sodium, S 137.5 135.0 - POWERCHART 145.0 MML Potassium, S 4.0 3.6 - 4.8 POWERCHART MMOLL Chloride, S 103 100 - 108 POWERCHART MMOLL CO2 Total 24.1 23.0 - POWERCHART 29.0 MMOLL BUN (Blood Urea 22 (H) 7 - 18 POWERCHART Nitrogen), S MGDL Creatinine 1.15 0.60 - POWERCHART 1.30 MGDL Calcium, Total, 9.4 8.5 - 10.1 POWERCHART S MGDL BUN/Creatinine 19.0 10.0 - POWERCHART Ratio 20.0 Anion Gap 10 10 - 20 POWERCHART MMOLL HXeGFR (MDRD) 46 (L) >=61 POWERCHART [id number] Comment: A GFR of <60 mL/min is indicative of chr onic kidney disease. (MDRD calculation valid on patients 18 - 70 years.) eGFR Black/ 56 MLMIN PO WERCHART Glucose 101 70 - 139 MGDL POWERCHART Specimen (Source) Anatomical Collection Method Collection Time Re ceived Time Location / / Volume Laterality Blood 10/11/2011 6:45 PM CDT Huan Hunt M.D. LAB BLOOD ADD-ON Performing Organization Address City/State/ZIP Code Phon e Number POWERCHART documented in this encounter Visit Diagnoses Not on filedocumented in this encounter
--- OUTSIDE RECORDS SUMMARY | 2022-01-04 09:41 | XMS_ITS | Encounter Summary ---
:1935 Author Organization [facility] Address [address] [place] [address] Care Team Providers Name Role Phone Unavailable Primary Care Provider Unavailable Encounter Details Date Type Department Care Team Description 04/16/2011 Hospital Encounter HX [facility] Ginna Tejada M.D . Social History Tobacco Use Types Packs/Day Years Used Date Smoking Tobacco: Never Assessed Sex Assigned at Date Recorded Not on file documented as of this encounter Medications at Time of Discharge Medication Sig Dispensed Refills Start Date End Date CALCIUM CARB/VIT Take by mouth daily. 0 1 01/21/2019 D3/MINERALS (CALCIUM-VITAMIN D ORAL) [id number] Take 1 capsule by 0 011 05/30/2018 oil 1,400 mg/5 mL liquid mouth daily. documented as of this encounter Miscellaneous Notes Miscellaneous - Ginna Tejada M.D. - 04/16/2011 8:42 AM CST Results Notification Document Contains Addenda Addendum by BREANN COPE LPN on 19 April 2011 13:43:22 CASH REGISTER BALANCER Copy mailed pt. From: GINNA TEJADA MD To: BREANN COPE METAL BONDING ASSEMBLER Sent: 04/16/2011 08:42:13 CASH REGISTER BALANCER ! Show up: 04/16/2011 14:42:13 [facility] Subject: Results Notification Actions: Notify patient of results Source: [facility] POWERCHART Document Id: [id number] Electronically signed by Conversion, [facility] Graves Registration Specialist [id number] at 08/06/2016 2:09 PM CDT documented in this encounter Plan of Treatment Not on filedocumented as of this encounter Procedures Procedure Name Priority Date/Time Associated Diagnosis Comme nts LIPID PANEL, S Routine 04/16/2011 7:55 AM Results for this CASH REGISTER BALANCER procedure are i n the results section . documented in this encounter Results (ABNORMAL) Lipid Panel (04/16/2011 7:55 AM CASH REGISTER BALANCER) athologist Signature Cholesterol, 157 0 - 200 POWERCHART Total MGDL Comment: <200 mg/dL Desirable 200-239 mg/dL Borderline High >239 mg/dL High HX HDL 67 (H) 35 - 60 MGDL POWERCHART Comment: > 60 mg/dL Desirable 40 ? 60 mg/dL Low Risk <40 mg/dL Undesirable Triglycerides 52 9 - 150 MGDL POWERCHART Comment: <150 mg/dL Desirable 150-199 mg/dL Borderline High 200-499 mg/dL High > 499 Very High Calculated LDL 80 (L) 100 - 129 MGDL POWERCHART Total Cholesterol/HDL Ratio 2 PO WERCHART Specimen (Source) Anatomical Collection Method Collection Time Re ceived Time Location / / Volume Laterality Blood 04/16/2011 7:55 AM CASH REGISTER BALANCER Ginna Tejada M.D. LAB BLOOD ADD-ON Performing Organization Address City/State/ZIP Code Phon e Number POWERCHART documented in this encounter Visit Diagnoses Not on filedocumented in this encounter
--- OUTSIDE RECORDS SUMMARY | 2022-01-04 09:41 | XMS_ITS | Encounter Summary ---
:1935 Author Organization [facility] Address [address] [place] [address] Care Team Providers Name Role Phone Unavailable Primary Care Provider Unavailable Encounter Details Date Type Department Care Team Description 11/24/2008 Hospital Encounter HX [facility] Manuel Solares, INPT/OBSRV M.D. [address] [place] [phone] (Wo rk) Social History Tobacco Use Types Packs/Day Years Used Date Smoking Tobacco: Never Assessed Sex Assigned at Date Recorded Not on file documented as of this encounter Plan of Treatment Not on filedocumented as of this encounter Visit Diagnoses Not on filedocumented in this encounter
--- OUTSIDE RECORDS SUMMARY | 2022-01-04 09:41 | XMS_ITS | Encounter Summary ---
:1935 Author Organization [facility] Address [address] [place] [address] Care Team Providers Name Role Phone Unavailable Primary Care Provider Unavailable Encounter Details Date Type Department Care Team Description 12/29/2010 Hospital Encounter HX [facility] Paresh Mak III, M.D. [address] [phone] (Wo rk) Social History Tobacco Use Types Packs/Day Years Used Date Smoking Tobacco: Never Assessed Sex Assigned at Date Recorded Not on file documented as of this encounter Medications at Time of Discharge Medication Sig Dispensed Refills Start Date End Date CALCIUM CARB/VIT Take by mouth daily. 0 1 01/21/2019 D3/MINERALS (CALCIUM-VITAMIN D ORAL) [id number]-epa-fish Take 1 capsule by 0 011 05/30/2018 oil 1,400 mg/5 mL liquid mouth daily. documented as of this encounter Progress Notes Aurora Mak M.D. - 12/29/2010 12:00 AM CDT [id number] IMPRESSION/REPORT/PLAN This patient was going to be seen for some driving issue but realized that she did not need to see a physician for this. There will be no charge for this visit. She did get her flu shot today. Aurora Mak III, M.D. / Electronically Signed By: AURORA MAK III, MD On: 01/18/2011 03:02 PM Source: [facility] MHSDOLBEYNONRADSYS Document Id: [id number] NSTER WEAVER documented in this encounter Miscellaneous Notes Miscellaneous - Janeth Og L.P.N. - 12/29/2010 2:28 PM CDT Adult Cafeteria Aide Intake/History Adult Cafeteria Aide Intake/History Entered On: 12/29/2010 14:31 CDT Performed On: 12/29/2010 14:28 CDT by JANETH OG LPN Intake Chief Complaint: here to have letter filled out for [place] Drivers Lic. Pt does not know why she recieved letter that requests a medical statement that she is physically fit to drive. Temperature Core: 36.6C(Converted to: 97.9DegF) Peripheral Pulse Rate: 65/min Respiratory Rate: 16/min Systolic Blood Pressure: 138mmHg Diastolic Blood Pressure: 56mmHg NIBP Mean: 83mmHg BP Location: Left upper extremity Heart Rhythm: Regular Actual Weight: 59.600kg(Converted to: 131lb 6oz) Weight Source: Standing scale Dosing Weight Clinic: 59.60kg JANETH OG LPN - 12/29/2010 14:28 CDT Subjective Pain Symptoms: No JANETH OG LPN - 12/29/2010 14:28 CDT Dependent Habits Tobacco Use/Currently Using: No Smoking Status: Never smoker JANETH OG LPN - 12/29/2010 14:28 CDT Caffeine Use Grid Caffeine Use: Current Type: Coffee Frequency: Daily JANETH OG LPN - 12/29/2010 14:28 CDT Allergy Allergies (Active) NKA Estimated Onset Date: Unspecified ; Created By: MAY DAVIDSON LPN; Reaction Status: Active ;Category: Drug ; Substance: NKA ; Type: Allergy ; Updated By: MAY DAVIDSON LPN; Reviewed Date: 12/29/2010 14:27 CDT Source: [facility] POWERCHART Document Id: [id number] CDT!24 documented in this encounter Plan of Treatment Not on filedocumented as of this encounter Visit Diagnoses Not on filedocumented in this encounter
--- OUTSIDE RECORDS SUMMARY | 2022-01-04 09:41 | XMS_ITS | Encounter Summary ---
:1935 Author Organization [facility] Address [address] [place] [address] Care Team Providers Name Role Phone Unavailable Primary Care Provider Unavailable Encounter Details Date Type Department Care Team Description 02/14/2011 Hospital Encounter HX [facility] Ginna Tejada M.D. Social History Tobacco Use Types Packs/Day Years Used Date Smoking Tobacco: Never Assessed Sex Assigned at Date Recorded Not on file documented as of this encounter Medications at Time of Discharge Medication Sig Dispensed Refills Start Date End Date CALCIUM CARB/VIT Take by mouth daily. 0 1 01/21/2019 D3/MINERALS (CALCIUM-VITAMIN D ORAL) [id number]-epa-fish Take 1 capsule by 0 011 05/30/2018 oil 1,400 mg/5 mL liquid mouth daily. documented as of this encounter Progress Notes Ginna Tejada M.D. - 02/14/2011 12:00 AM CST [id number] CHIEF COMPLAINT/REASON FOR VISIT Janeth is here to follow a rash on her head. She saw Dr. Mak for this. He put her on Spironolactone and it has been somewhat helpful. She thinks still it is somewhat irritating, it bothers her night, she itches it but she is concerned about her blood pressure. He had her increase her Spironolactone to 2 a day and she checked her blood pressure at home and was running low around 100 systolic and she is feeling a little lightheaded so she went back to 1 a day and that has been working okay for her and she would just like to stay at 1 a day. Blood pressure today is 114/56. She has a little scaly rash on the top of her head and some on in the back. She says her tells her he thinks it gets worse when she is tense or stressed and she agrees with that. She recently got some Benadryl to help with some itchy skin and is wondering about using that at night time and I said I think that would probably be helpful. I also suggested she try some Nizoral shampoo to see if that would help, her skin does look dry. Her hair is thinning somewhat and it is permed and colored which probably does not help either. She has not had any lab work done since she started on this Spironolactone so we will check a BMP today. She is not fasting so they are not able to do a lipid panel. We looked at the health maintenance issues. She is due for mammogram, bone density and lipid panel so I ordered those things. She would like to wait until after [place] and will return fasting and hopefully we can get all those things in on the same day. ASSESSMENT 1. Hair loss. 2. Dermatitis Ginna Tejada M.D. /keith Electronically Signed By: GINNA TEJADA MD On: 02/25/2011 07:56 AM Source: [facility] MHSDOLBEYNONRADSYS Document Id: [id number] TECHNICIAN RESIDENTIAL documented in this encounter Miscellaneous Notes Miscellaneous - Ginna Tejada M.D. - 02/14/2011 9:31 AM CST Results Notification Document Contains Addenda Addendum by SHERYL SANTO LPN, RT on 14 February 2011 14:09:56 HVAC TECHNICIAN RESIDENTIAL Message left, patient will called if she has questions. From: GINNA TEJADA MD To: BREANN COPE SHANK STAPLER Sent: 02/14/2011 09:31:52 HVAC TECHNICIAN RESIDENTIAL ! Show up: 02/14/2011 15:31:52 [facility] Subject: Results Notification Actions: Notify patient of results Due Date/Time: 02/14/2011 10:31:00 HVAC TECHNICIAN RESIDENTIAL Source: [facility] POWERCHART Document Id: [id number] Electronically signed by [facility] Architectural Designer [id number] at 08/07/2016 8:05 PM CDT Miscellaneous - Ginna Tejada M.D. - 02/14/2011 8:16 AM CST Ambulatory Patient Summary [address] [address] Visit Information Name: JANETH RANGEL Current Date: 02/14/2011 08:16:19 Primary Care Provider: MARISOL MCFADDEN MD Your [...] Additional Information Health Assessment every 1 year 02/14/2011 Screening Colonoscopy or Flex Sig or Occult Blood X3 11/08/2006 11/05/2016 Checks for signs of cancer of the colon. Vaccine: Flu every 1 year 12/29/2010 12/29/2011 [...] No Appointments found Your Goals/Additional instructions: Source: [facility] POWERCHART Document Id: [id number] TECHNICIAN RESIDENTIAL Miscellaneous - Ginna Tejada M.D. - 02/14/2011 8:16 AM CST Ambulatory Depart Summary [address] [address] Visit Information Name: JANETH RANGEL Current Date: 02/14/2011 08:16:18 Physicians Attending Physician: GINNA TEJADA MD Primary Care Provider: MARISOL [...] to the patient and/or family, guardian/caregiver. Source: [facility] POWERCHART Document Id: [id number] TECHNICIAN RESIDENTIAL Miscellaneous - Rubens Duque L.P.N. - 02/14/2011 7:50 AM CST Adult Start Up Specialist Intake/History Adult Start Up Specialist Intake/History Entered On: 02/14/2011 7:52 HVAC TECHNICIAN RESIDENTIAL Performed On: 02/14/2011 7:50 HVAC TECHNICIAN RESIDENTIAL by RUBENS DUQUE LPN Intake Chief Complaint : Rash on head, x2.5 months Temperature Core : 36.0C(Converted to: 96.8DegF) (LOW) Peripheral Pulse Rate : 80/min Respiratory Rate : 16/min Systolic Blood Pressure : 114mmHg Diastolic Blood Pressure : 56mmHg NIBP Mean : 75mmHg BP Location : Left upper extremity Heart Rhythm : Regular RUBENS DUQUE LPN - 02/14/2011 7:50 HVAC TECHNICIAN RESIDENTIAL Subjective Pain Symptoms : No RUBENS DUQUE LPN - 02/14/2011 7:50 HVAC TECHNICIAN RESIDENTIAL Dependent Habits Tobacco Use/Currently Using : No Tobacco Use/Last 12 months : No Exposure to Tobacco Smoke : Care provider denies smoking in home Smoking Status : Never smoker Alcohol Use : Yes RUBENS DUQUE LPN - 02/14/2011 7:50 HVAC TECHNICIAN RESIDENTIAL Caffeine Use Grid Caffeine Use : Current Type : Coffee Frequency : Daily RUBENS DUQUE LPN - 02/14/2011 7:50 HVAC TECHNICIAN RESIDENTIAL Recreational Drug Use Grid Drug Use : None RUBENS DUQUE LPN - 02/14/2011 7:50 HVAC TECHNICIAN RESIDENTIAL Allergy Allergies (Active) NKA Estimated Onset Date: Unspecified ; Created By: MAY DAVIDSON LPN; Reaction Status: Active ;Category: Drug ; Substance: NKA ; Type: Allergy ; Updated By: MAY DAVIDSON LPN; Reviewed Date: 02/14/2011 7:48 HVAC TECHNICIAN RESIDENTIAL Source: [facility] [employer] Document Id: [id number] HVAC TECHNICIAN RESIDENTIAL!27 TECHNICIAN RESIDENTIAL documented in this encounter Plan of Treatment Not on filedocumented as of this encounter Visit Diagnoses Not on filedocumented in this encounter
--- OUTSIDE RECORDS SUMMARY | 2022-01-04 09:41 | XMS_ITS | Encounter Summary ---
:1935 Author Organization [facility] Address [address] [place] [address] Care Team Providers Name Role Phone Unavailable Primary Care Provider Unavailable Encounter Details Date Type Department Care Team Description 02/17/2005 Hospital Encounter HX [facility] Elena Oliveira D.OKai [address] [place], [place] [address] (Wo rk) Social History Tobacco Use Types Packs/Day Years Used Date Smoking Tobacco: Never Assessed Sex Assigned at Date Recorded Not on file documented as of this encounter Miscellaneous Notes Telephone Encounter - Conversion, Historical Provider Ser - 02/17/2005 12:00 AM CST [id number] CAD/HTN and or CHF labs: CR 0.9 10/09/2002 POTASSIUM 3.7 10/09/2002 Source[facility] Document Id: [id number] Telephone Encounter - Elena Oliveira D.O. - 02/17/2005 12:00 AM CST [id number] She has changed to [place] [facility] I believe as I have not seen her since 2002. Please notify [facility] [place] that she is no longer our patient. Source: [facility] Document Id: [id number] Telephone Encounter - Conversion, Historical Provider Ser - 02/17/2005 12:00 AM CST [id number] pharmacy called Source: [facility] RWHXTRANSXRTFSYS Document Id: [id number] documented in this encounter Plan of Treatment Not on filedocumented as of this encounter Visit Diagnoses Not on filedocumented in this encounter
--- OUTSIDE RECORDS SUMMARY | 2022-01-04 09:41 | XMS_ITS | Encounter Summary ---
:1935 Author Organization [facility] Address [address] [place] [address] Care Team Providers Name Role Phone Unavailable Primary Care Provider Unavailable Encounter Details Date Type Department Care Team Description 12/26/2001 Hospital Encounter HX [facility] Provider, Hi storical Social History Tobacco Use Types Packs/Day Years Used Date Smoking Tobacco: Never Assessed Sex Assigned at Date Recorded Not on file documented as of this encounter Plan of Treatment Not on filedocumented as of this encounter Visit Diagnoses Not on filedocumented in this encounter
--- OUTSIDE RECORDS SUMMARY | 2022-01-04 09:41 | XMS_ITS | Encounter Summary ---
:1935 Author Organization [facility] Address [address] [place] [address] Care Team Providers Name Role Phone Unavailable Primary Care Provider Unavailable Encounter Details Date Type Department Care Team Description 12/03/2008 Hospital Encounter HX [facility] INPT[facility]OBS[facility] Shonna Masterson M.D. [address] [place], [place] [address] [place] [id number] (Wo rk) Social History Tobacco Use Types Packs/Day Years Used Date Smoking Tobacco: Never Assessed Sex Assigned at Date Recorded Not on file documented as of this encounter Plan of Treatment Not on filedocumented as of this encounter Visit Diagnoses Not on filedocumented in this encounter
--- OUTSIDE RECORDS SUMMARY | 2022-01-04 09:41 | XMS_ITS | Encounter Summary ---
:1935 Author Organization [facility] Address [address] [place] [address] Care Team Providers Name Role Phone Unavailable Primary Care Provider Unavailable Encounter Details Date Type Department Care Team Description 04/12/2002 Hospital Encounter HX NO MAPPING Elena Oliveira D.O. [address] [place], [place] [address] (Wo rk) Social History Tobacco Use Types Packs/Day Years Used Date Smoking Tobacco: Never Assessed Sex Assigned at Date Recorded Not on file documented as of this encounter Plan of Treatment Not on filedocumented as of this encounter Visit Diagnoses Not on filedocumented in this encounter
--- OUTSIDE RECORDS SUMMARY | 2022-01-04 09:41 | XMS_ITS | Encounter Summary ---
:[address] [facility] Address [address] [place] [address] Care Team Providers Name Role Phone Unavailable Primary Care Provider Unavailable Encounter Details Date Type Department Care Team Description 11/08/2006 Hospital Encounter HX NO MAPPING Rodolfo Zapata am, M.D. [address] [place], [place] [phone] (Wo rk) Social History Tobacco Use Types Packs/Day Years Used Date Smoking Tobacco: Never Assessed Sex Assigned at Date Recorded Not on file documented as of this encounter Plan of Treatment Not on filedocumented as of this encounter Visit Diagnoses Not on filedocumented in this encounter
--- OUTSIDE RECORDS SUMMARY | 2022-01-04 09:41 | XMS_ITS | Encounter Summary ---
:1935 Author Organization [facility] Address [address] [place] [address] Care Team Providers Name Role Phone Unavailable Primary Care Provider Unavailable Encounter Details Date Type Department Care Team Description 01/17/2002 Hospital Encounter HX [facility] Jeremias Ewing, R.N. [address] [place] [address] Social History Tobacco Use Types Packs/Day Years Used Date Smoking Tobacco: Never Assessed Sex Assigned at Date Recorded Not on file documented as of this encounter Miscellaneous Notes Telephone Encounter - Conversion, Historical Provider Ser - 01/17/2002 12:00 AM CST [id number] >> CHRISTIANA PAREDES Trish Jan 17, 2002 4:19 PM Patient's request for a refill has been approved. Order entered - it has been faxed to pharmacy. >> TITA PARIS [facility] Jan 17, 2002 2:07 PM >> CALL RECEIVED. Contact: Accepting this Rx will FAX it directly to the pharmacy. [facility] Document Id: [id number] documented in this encounter Plan of Treatment Not on filedocumented as of this encounter Visit Diagnoses Not on filedocumented in this encounter
--- OUTSIDE RECORDS SUMMARY | 2022-01-04 09:41 | XMS_ITS | Encounter Summary ---
:1935 Author Organization [facility] Address [address] [place] [address] Care Team Providers Name Role Phone Unavailable Primary Care Provider Unavailable Encounter Details Date Type Department Care Team Description 11/13/2001 Hospital Encounter [facility] Elena Oliveira D.OKai [address] [place], [place] [address] (Wo rk) Social History Tobacco Use Types Packs/Day Years Used Date Smoking Tobacco: Never Assessed Sex Assigned at Date Recorded Not on file documented as of this encounter Progress Notes Conversion, Historical Provider Ser - 11/13/2001 7:30 AM CDT [id number] Ms. Duenas is a 66 year old female who presents for a follow up regarding hypertension. She has had hypertension of moderate severity and started medication 2 years ago. She denies concerns today, e xcept that ears feel plugged. Janeth is compliant with medications and is compliant with diet. Revi ew of patient's past medical history indicates: HYPERTENSION NOS Review of patient's past surgical history indicates: TOTAL ABDOM HYSTERECTOMY 1969' Comment: Hysterectomy, Total Abdominal (bleeding) - benign Social History: Tobacco Use: Not Asked Alcohol Use: Not Asked Meds as of 11/13/2001:ACCU PRIL 20 MG OR TABS, one daily for blood pressure, D: 30, R: 1ATENOLOL 50 MG OR TABS, 1 CAPSULE DAILY IN AM, D: 100, R: 0HYDROCHLOROTHIAZIDE 25 MG OR TABS, 1 CAPSULE DAILY IN AM, D: 100, R: 0 BR IEF REVIEW OF SYSTEMS:ENT: Denies cold symptoms, sinus congestion, and sore throat.CARDIOVASCULAR: Denies chest pain, dyspnea, orthopnea, paroxysmal nocturnal dyspnea, palpitations, and edema.GASTROI NTESTINAL: Denies heartburn, abdominal pain, constipation, and diarrhea.PULMONARY: no wheezing, no s hortness of breath, no chronic cough.EXAM:Ms. Duenas is alert, lucid, pleasant, and in no distre ss. Well nourished, good hydration.VITALS: Blood pressure 122/74, pulse 64, temperature 96.5, weight 147 lbs (66.679 kg), last menstrual period Hysterectomy. LUNGS: Normal respiratory effort and auscu ltation reveals lungs to be clear.HEART: regular rhythm with controlled rate. No murmur is present. LOWER EXTREMETIES: Ankle edema is not present. Varicosities are mild and no ulcerations.EARS: bilate ral cerumen impactionASSESSMENT:1. Hypertension2. Family history of diabetes3. Mild Hypercholest erolemia 4. Cerumen impactionPLAN:1. Instructed to follow up in 6 months for BP, mammo due late f all.2. Otherwise, continue present medications. 3. Labs ordered today: sodium, potassium, creatinin e, BUN, lipid profile and AST, CBC. Hemoglobin A1c. Will follow up with results.4. Ear lavage. Source: [facility] RWHXTRANSXSYS Document Id: [id number] documented in this encounter Miscellaneous Notes Miscellaneous - Elena Oliveira D.O. - 11/13/2001 7:30 AM CDT [id number] Janeth Duenas [address] [place] [address] [id number] 11/25/2001 Dear Ms. Duenas, I am writing to inform you of the results of the laboratory tests you had performed during your recent visit to the clinic. Your blood count is normal with no sign of anemia. The kidney and liver tests were both normal. Your test for diabetes is normal. Your potassium is 3.5. Normal is 3.7 to 5.2. Your's is slightly low. I would recommend a daily banana and/or daily glass of orange juice and this should bring it up to normal. Your cholesterol tests were: very good. CHOL 165 11/13/2001 TRIG 92 11/13/2001 HDL 46 11/13/2001 LDL 101 11/13/2001 Normal values for cholesterol: less than 200; for triglyceride: less than 200; for HDL(good cholesterol): greater than 35; for LDL (bad cholesterol): less than 130 and ideally less than 100. It was a pleasure to see you in the clinic. If you have any further questions or problems, please contact our office at [phone]. Sincerely, Elena Oliveira D.O. Family Practice Department [facility] RWHXTRANSXRTFSYS Document Id: [id number] documented in this encounter Plan of Treatment Not on filedocumented as of this encounter Visit Diagnoses Not on filedocumented in this encounter
--- OUTSIDE RECORDS SUMMARY | 2022-01-04 09:41 | XMS_ITS | Encounter Summary ---
:1935 Author Organization [facility] Address [address] [place] [address] Care Team Providers Name Role Phone Unavailable Primary Care Provider Unavailable Encounter Details Date Type Department Care Team Description 04/18/2002 Hospital Encounter HX [facility] Provider, Historic al Social History Tobacco Use Types Packs/Day Years Used Date Smoking Tobacco: Never Assessed Sex Assigned at Date Recorded Not on file documented as of this encounter Miscellaneous Notes Miscellaneous - Conversion, Historical Provider Ser - 04/18/2002 12:00 AM CANE LOADER [id number] Janeth Duenas [address] [place] [address] [phone] 04/18/2002 Dear Janeth This letter is in regards to the scope that Elena Oliveira D.O. recommended you have performed. We have scheduled that for you with Fabiano Davies M.D. on May 15 at 12:30PM. Please report to [facility] business office approximately 1/2 hour before your scheduled appointment. Enclosed is the information/preparation. If it is not going to be possible for you to keep this appointment, please call the [facility] and reschedule. The colyte prep will be called in to your pharmacy and you can pick that up a few days before your appointment. If you do not have the prep information please stop in at the [facility] and pick this up or call us and we can send it to you. If you have any questions feel free to call us at the [facility] and ask for the lab. Sincerely, Marie Soares [facility], [facility] Source: [facility] RWHXTRANSXRTFSYS Document Id: [id number] documented in this encounter Plan of Treatment Not on filedocumented as of this encounter Visit Diagnoses Not on filedocumented in this encounter
--- OUTSIDE RECORDS SUMMARY | 2022-01-04 09:41 | XMS_ITS | Encounter Summary ---
:1935 Author Organization [facility] Address [address] [place] [address] Care Team Providers Name Role Phone Unavailable Primary Care Provider Unavailable Encounter Details Date Type Department Care Team Description 08/06/2003 Hospital Encounter HX NO MAPPING Provider, Historical Social History Tobacco Use Types Packs/Day Years Used Date Smoking Tobacco: Never Assessed Sex Assigned at Date Recorded Not on file documented as of this encounter Miscellaneous Notes Miscellaneous - Conversion, Historical Provider Ser - 08/06/2003 12:00 AM CDT [id number] medical record release to [facility] [address] [place] [address] all clini c notes sent Source: [facility] RWHXTRANSXSYS Document Id: [id number] documented in this encounter Plan of Treatment Not on filedocumented as of this encounter Visit Diagnoses Not on filedocumented in this encounter
--- OUTSIDE RECORDS SUMMARY | 2022-01-04 09:41 | XMS_ITS | Encounter Summary ---
:1935 Author Organization [facility] Address [address] [place] [address] Care Team Providers Name Role Phone Unavailable Primary Care Provider Unavailable Encounter Details Date Type Department Care Team Description 10/05/2011 Hospital Encounter [facility] Paresh Mak III, M.D. 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 0 1 01/21/2019 D3/MINERALS (CALCIUM-VITAMIN D ORAL) [id number]-epa-fish Take 1 capsule by 0 011 05/30/2018 oil 1,400 mg/5 mL liquid mouth daily. documented as of this encounter Progress Notes Aurora Mak M.D. - 10/05/2011 1:22 PM CDT [id number] CHIEF COMPLAINT/REASON FOR VISIT Chest pain. HISTORY OF PRESENT ILLNESS Ms. Rangel is a 76-year-old white female with a past medical history significant for essential hypertension diagnosed in 1990. She comes in today with complaints of chest pressure that occurs underneath the left breast. She describes it as a slightly gnawing pain. She has noticed that it is better when she is sitting up but otherwise it is not pleuritic or tender to palpation. She describes the painas 1 out of 10 in intensity at its worst. She denies any other modifying factors that improve or worsen her symptoms. She denies having a past history of acid reflux. SYSTEMS REVIEW Pertinent positives and negatives are noted above. The remainder of the complete review of systems is negative. PAST MEDICAL/SURGICAL HISTORY 1. Essential hypertension, not controlled. 2. History of a tick bite. 3. Mild hair loss. Prescribed spironolactone. CURRENT MEDICATIONS Medications reviewed and reconciled in [employer] today. ALLERGIES No known drug allergies. PHYSICAL EXAMINATION VITAL SIGNS: Temperature 36.3 degreesC, pulse 64, respirations 18, blood pressure 146/52. GENERAL: Patient is alert and cooperative. She is in no acute distress at this time. LUNGS: Clear to auscultation bilaterally without expiratory wheezes or rhonchi. HEART: Regular rate rhythm; normal S1 and S2. ABDOMEN: Supple, nontender, nondistended with positive bowel sounds. CHEST: Palpation of the chest does not reproduce her pain. IMPRESSION/REPORT/PLAN Chest pressure. PLAN: Given the patient's a lack of distress and previously normal cholesterol with an LDL of 80, triglyceride of 67 and a total cholesterol 157, I think it is unlikely that she is having any problems with her heart. The other portion of the differential would include a precordial clap, chest wall pain, or some referred pain. The patient is still concerned about this and I have given her instructionsthat a treadmill stress test may be appropriate for given the fact that she can walk without difficulty. I will plan on setting her up for that and then have her see cardiology if this is thought to benecessary. Her questions were answered and reassurance was given. Aurora Mak M.D./leida Electronically Signed By: AURORA MAK III, MD On: 10/18/2011 04:18 PM Source: [facility] MHSDOLBEYNONRADSYS Document Id: [id number] documented in this encounter Miscellaneous Notes Miscellaneous - Batsheva Newby R.N. - 10/06/2011 8:16 AM CDT Patient Education Patient Education Entered On: 10/06/2011 8:17 CDT Performed On: 10/06/2011 8:16 CDT by BATSHEVA NEWBY RN Education General Patient Education [employer] Topics : Other: Patient telephoned and updated on treadmill stress test ordered by Dr. Mak. Teaching done on the phone - denied any questions at this time. Written educational information was mailed to patient also. Encouraged to call if she has ? BATSHEVA NEWBY RN - 10/06/2011 8:16 CDT Source: [facility] POWERCHART Document Id: [id number] Miscellaneous - Aurora Mak M.D. - 10/05/2011 2:02 PM CDT Ambulatory Patient Summary [address] [address] Visit Information Name: JANETH RANGEL Current Date: 10/05/2011 14:02:21 Physicians Attending Provider: AURORA AMK III, MD Primary Care Provider: MARISOL MCFADDEN MD [...] No Appointments found Your Goals/Additional instructions: Source: [facility] POWERCHART Document Id: [id number] Miscellaneous - Aurora Mak M.D. - 10/05/2011 2:02 PM CDT Ambulatory Depart Summary [address] [address] Visit Information Name: JANETH RANGEL Visit Date: 10/05/2011 14:02:21 Attending Provider: AURORA MAK III, MD Primary Care Provider: MARISOL MCFADDEN MD [...] your provider for clarification. Additional Information: Source: [facility] POWERCHART Document Id: [id number] Miscellaneous - Jackeline Nava LKaiPKaiNKai - 10/05/2011 1:30 PM CDT Adult Pododermatologist Intake/History Adult Pododermatologist Intake/History Entered On: 10/05/2011 13:34 CDT Performed On: 10/05/2011 13:30 CDT by JACKELINE NAVA LPN Intake Chief Complaint : nagging feeling in chest and back left shoulder Onset of Symptoms : 3- 4 days ago Temperature Core : 36.3C(Converted to: 97.3DegF) (LOW) Peripheral Pulse Rate : 64/min Respiratory Rate : 18/min Systolic Blood Pressure : 146mmHg (HI) Diastolic Blood Pressure : 52mmHg NIBP Mean : 83mmHg BP Location : Right upper extremity Blood Pressure Cuff Size : Regular SpO2 : 98% Oxygen Therapy : Room air Actual Weight : 59.9kg(Converted to: 132lb 1oz) Weight Source : Standing scale Dosing Weight Clinic : 59.90kg JACKELINE NAVA LPN - 10/05/2011 13:30 CDT Subjective Pain Symptoms : Yes JACKELINE NAVA LPN - 10/05/2011 13:30 CDT Pain Pain Assessment Grid Pain 1 Location : Chest Intensity : 1 JACKELINE NAVA LPN - 10/05/2011 13:30 CDT Dependent Habits Tobacco Use/Currently Using : No Exposure to Tobacco Smoke : Care provider denies smoking in home Smoking Status : Never smoker JACKELINE NAVA LPN - 10/05/2011 13:30 CDT Tobacco Use Grid Last Use : never JACKELINE NAVA LPN - 10/05/2011 13:30 CDT Alcohol Use : Yes JACKELINE NAVA LPN - 10/05/2011 13:30 CDT Caffeine Use Grid Caffeine Use : Current Type : Coffee Frequency : Daily JACKELINE NAVA LPN - 10/05/2011 13:30 CDT Recreational Drug Use Grid Drug Use : None JACKELINE NAVA LPN - 10/05/2011 13:30 CDT Allergy Allergies (Active) NKA Estimated Onset Date: Unspecified ; Created By: JACKELINE NAVA LPN; Reaction Status: Active ;Category: Drug ; Substance: NKA ; Type: Allergy ; Updated By: JACKELINE NAVA LPN; Reviewed Date: 10/05/2011 13:28 CDT Source: [employer] Document Id: [id number] documented in this encounter Plan of Treatment Not on filedocumented as of this encounter Visit Diagnoses Not on filedocumented in this encounter
--- OUTSIDE RECORDS SUMMARY | 2022-01-04 09:41 | XMS_ITS | Encounter Summary ---
:1935 Author Organization [facility] Address [address] [place] [address] Care Team Providers Name Role Phone Unavailable Primary Care Provider Unavailable Encounter Details Date Type Department Care Team Description 10/17/2011 Hospital Encounter [facility]X [facility] Judy Schulte M.D. [address] [place] [phone] (Wo rk) Social History Tobacco Use Types Packs/Day Years Used Date Smoking Tobacco: Never Assessed Sex Assigned at Date Recorded Not on file documented as of this encounter Medications at Time of Discharge Medication Sig Dispensed Refills Start Date End Date CALCIUM CARB/VIT Take by mouth daily. 0 1 01/21/2019 D3/MINERALS (CALCIUM-VITAMIN D ORAL) [id number]-epa-fish Take 1 capsule by 0 011 05/30/2018 oil 1,400 mg/5 mL liquid mouth daily. documented as of this encounter Nursing Notes Batsheva Dixon R.N. - 10/11/2011 1:01 PM CDT stress test Patient telephoned from vacation [place]. Stated that she was nervous about the chest twinges that she has been having. Stated that they were unchanged from previously. Was wondering if she could have stress test early. Unable to do stress test at until scheduled date of Monday, 10-16. Encouraged her to go see MD while on vaction. Or, if pain gets worse to go to ER [place]. Stated that she would consider seeing a doctor [place] this week. She will keep her appt for the stress test 10-16. Electronically Signed By: BATSHEVA DIXON RN On: 10/11/2011 01:11 PM Source: [facility] [employer] Document Id: [id number] documented in this encounter Plan of Treatment Not on filedocumented as of this encounter Visit Diagnoses Not on filedocumented in this encounter
--- OUTSIDE RECORDS SUMMARY | 2022-01-04 09:41 | XMS_ITS | Encounter Summary ---
:1935 Author Organization [facility] Address [address] [place] [address] Care Team Providers Name Role Phone Unavailable Primary Care Provider Unavailable Encounter Details Date Type Department Care Team Description 01/21/2002 Hospital Encounter HX [facility] Elena Oliveira D.O. [address] [place], [place] [address] (Wo rk) Social History Tobacco Use Types Packs/Day Years Used Date Smoking Tobacco: Never Assessed Sex Assigned at Date Recorded Not on file documented as of this encounter Miscellaneous Notes Miscellaneous - Elena Oliveira D.O. - 01/21/2002 12:00 AM CST [id number] Janeth Duenas [address] [place] [address] MR# [id number] January 21, 2002 Dear Mrs. Duenas, APPOINTMENT REMINDER: Our records indicates that it is time for you to be seen for a mammogram. You may call our office at [phone] to schedule an appointment for Mammogram. Please ask for Marie and she will assist you in scheduling this. Sincerely, Elena Oliveira D.O. FAMILY PRACTICE Source: [facility] Document Id: [id number] documented in this encounter Plan of Treatment Not on filedocumented as of this encounter Visit Diagnoses Not on filedocumented in this encounter
--- OUTSIDE RECORDS SUMMARY | 2022-01-04 09:41 | XMS_ITS | Encounter Summary ---
:1935 Author Organization [facility] Address [address] [place] [address] Care Team Providers Name Role Phone Unavailable Primary Care Provider Unavailable Encounter Details Date Type Department Care Team Description 06/05/2007 Hospital Encounter HX [facility] Brittani Muro M.D. [address] [place] [address] (Wo rk) Social History Tobacco Use Types Packs/Day Years Used Date Smoking Tobacco: Never Assessed Sex Assigned at Date Recorded Not on file documented as of this encounter Plan of Treatment Not on filedocumented as of this encounter Visit Diagnoses Not on filedocumented in this encounter
--- OUTSIDE RECORDS SUMMARY | 2022-01-04 09:41 | XMS_ITS | Encounter Summary ---
:1935 Author Organization [facility] Address [address] [place] [address] Care Team Providers Name Role Phone Unavailable Primary Care Provider Unavailable Encounter Details Date Type Department Care Team Description 05/25/2011 Hospital Encounter [facility] Paresh Mak III, M.D. 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 0 1 01/21/2019 D3/MINERALS (CALCIUM-VITAMIN D ORAL) [id number]-epa-fish Take 1 capsule by 0 011 05/30/2018 oil 1,400 mg/5 mL liquid mouth daily. documented as of this encounter Progress Notes Aurora Mak M.D. - 05/25/2011 12:00 AM CDT [id number] CHIEF COMPLAINT/REASON FOR VISIT [place] tick. HISTORY OF PRESENT ILLNESS Ms. Rangel is a 76-year-old white female [place] [facility] [employer] and she found a tick attached to her left side. She found this late yesterday. Time of attachment was greater than 48 hours. She was able to pull the entire tick off. She states she has red area there at that site of the bite. She has not experienced any discomfort, pain or illness. SYSTEMS REVIEW Pertinent positives and negatives noted above. The remainder of the complete Review of Systems are negative. PAST MEDICAL/ SURGICAL HISTORY 1) Essential hypertension, controlled. PHYSICAL EXAMINATION VITAL SIGNS Temperature: 36.3-degrees Centigrade. Pulse: 78. Respirations: 16. Blood pressure: 140/60. Weight: 61.3 kilograms. IN GENERAL: The patient is alert and cooperative. She is in no acute distress at this time. ABDOMEN: Evaluation of her abdomen shows a 1-centimeter, red raised area with a central dimple where the tick was attached. She has the tick with her and upon evaluation shows that this is a adult female deer tick. It does not appear to be engorged. CLINICAL IMPRESSION 1) Tick bite. PLAN The patient meets criteria for prophylactic treatment of Lyme's disease. The attached tick is identified as an adult Ixodes scapularis tick ([place] tick). The tick is estimated to have been attached for greater than 36 hours. Prophylaxis is going to be started within 72 hours of tick removal. Local rate of infection of ticks with B.burgdorferi is greater than 20% which is common in this State, and Doxycycline is not contraindicated in this patient. We will start her on Doxycycline, 200 milligrams, by mouth times one. We will plan on seeing her back if her tick bite site becomes significantly larger. Her questions were answered and reassurance was given. She is happy with the plan at this point. Aurora Mak III, M.D. /keith Electronically Signed By: AURORA MAK III, MD On: 05/30/2011 08:20 AM [facility] Document Id: [id number] documented in this encounter Miscellaneous Notes Miscellaneous - Aurora Mak M.D. - 05/25/2011 8:59 AM CDT Ambulatory Patient Summary [address] [place] [address] Visit Information Name: JANETH RANGEL Current Date: 05/25/2011 08:59:18 Physicians Attending Provider: AURORA MAK III, MD [...] medications. Medication/Strength Dose Route Frequency Indications/Special Instructions/Comments doxycycline (doxycycline hyclate 100 mg oral capsule) 200 mg Oral once [place] Tic Bite with fluids spironolactone (spironolactone 100 mg oral tablet) 100 [...] Active 03/06/1990 Tick Bite Active 05/25/2011 Your Recommendations We want to make sure [...] Additional Information Health Assessment every 1 year 05/25/2011 Screening Bone Density Once Women greater than age 64 03/18/2011 Completed Checks for bone loss and osteoporosis. Screening Colonoscopy or Flex Sig or Occult Blood 11/08/2006 11/05/2016 Checks for signs of cancer of the colon. Screening Mammogram every 1 year Women 40-75 03/18/2011 03/18/2012 X-rays of breast to check for breast cancer. Lipid Panel every 5 years Age 20-75 04/16/2011 04/14/2016 Checks blood for good (HDL) and bad [...] [facility] POWERCHART Document Id: [id number] Miscellaneous - Aurora Mak M.D. - 05/25/2011 8:59 AM CDT Ambulatory Depart Summary [address] [place] [address] Visit Information Name: JANETH RANGEL Visit Date: 05/25/2011 08:59:16 Attending Provider: AURORA MAK III, MD Primary [...] medications. Medication/Strength Dose Route Frequency Indications/Special Instructions/Comments doxycycline (doxycycline hyclate 100 mg oral capsule) 200 mg Oral once [place] Tic Bite with fluids spironolactone (spironolactone 100 mg oral tablet) 100 [...] [facility] POWERCHART Document Id: [id number] Miscellaneous - Janeth Og LKaiPKaiNKai - 05/25/2011 8:31 AM CDT Adult Community Service Representative Intake/History Adult Community Service Representative Intake/History Entered On: 05/25/2011 8:33 CDT Performed On: 05/25/2011 8:31 CDT by JANETH OG LPN Intake Chief Complaint : walked in [place] and found tick late yesterday. Small red area on left mid rib area. Temperature Core : 36.3C(Converted to: 97.3DegF) (LOW) Peripheral Pulse Rate : 78/min Respiratory Rate : 16/min Heart Rhythm : Regular Systolic Blood Pressure : 140mmHg Diastolic Blood Pressure : 60mmHg NIBP Mean : 87mmHg BP Location : Left upper extremity Blood Pressure Cuff Size : Regular Actual Weight : 61.3kg(Converted to: 135lb 2oz) Weight Source : Standing scale Dosing Weight Clinic : 61.30kg JANETH OG LPN - 05/25/2011 8:31 CDT Subjective Pain Symptoms : No LUKASZTRESJANETH GONZALEZ LPN - 05/25/2011 8:31 CDT Dependent Habits Tobacco Use/Currently Using : No Exposure to Tobacco Smoke : Care provider denies smoking in home Smoking Status : Never smoker LUKASZTRESJANETH GONZALEZ LPN - 05/25/2011 8:31 CDT Tobacco Use Grid Last Use : never JANETH OG LPN - 05/25/2011 8:31 CDT Caffeine Use Grid Caffeine Use : Current Type : Coffee Frequency : Daily JANETH OG LPN - 05/25/2011 8:31 CDT Recreational Drug Use Grid Drug Use : None JANETH OG LPN - 05/25/2011 8:31 CDT Allergy Allergies (Active) NKA Estimated Onset Date: Unspecified ; Created By: MAY DAVIDSON LPN; Reaction Status: Active ;Category: Drug ; Substance: NKA ; Type: Allergy ; Updated By: MAY DAVIDSON LPN; Reviewed Date: 05/25/2011 8:30 CDT Source: [facility] [employer] Document Id: [id number] documented in this encounter Plan of Treatment Not on filedocumented as of this encounter Visit Diagnoses Not on filedocumented in this encounter
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
--- OUTSIDE RECORDS SUMMARY | 2022-01-04 09:41 | XMS_ITS | Encounter Summary ---
:1935 Author Organization [facility] Address [address] [place] [address] Care Team Providers Name Role Phone Unavailable Primary Care Provider Unavailable Encounter Details Date Type Department Care Team Description 12/21/2009 Hospital Encounter HX [facility] INPT/OBSRV Lisa Lion M.D. [address] [place] [phone] (Wo rk) Social History Tobacco Use Types Packs/Day Years Used Date Smoking Tobacco: Never Assessed Sex Assigned at Date Recorded Not on file documented as of this encounter Plan of Treatment Not on filedocumented as of this encounter Visit Diagnoses Not on filedocumented in this encounter
--- OUTSIDE RECORDS SUMMARY | 2022-01-04 09:41 | XMS_ITS | Encounter Summary ---
:1935 Author Organization [facility] Address [address] [place] [address] Care Team Providers Name Role Phone Unavailable Primary Care Provider Unavailable Encounter Details Date Type Department Care Team Description 03/18/2011 [facility] Ginna Tejada M .D. Social History Tobacco Use Types Packs/Day Years Used Date Smoking Tobacco: Never Assessed Sex Assigned at Date Recorded Not on file documented as of this encounter Medications at Time of Discharge Medication Sig Dispensed Refills Start Date End Date CALCIUM CARB/VIT Take by mouth daily. 0 1 01/21/2019 D3/MINERALS (CALCIUM-VITAMIN D ORAL) [id number]-fish Take 1 capsule by 0 011 05/30/2018 oil 1,400 mg/5 mL liquid mouth daily. documented as of this encounter Miscellaneous Notes Miscellaneous - Ginna Tejada M.D. - 03/18/2011 11:00 AM CST Results Notification Document Contains Addenda Addendum by BREANN COPE LPN on 18 March 2011 15:34:31 SMALL CRAFT OPERATOR Copy mailed pt. From: GINNA TEJADA MD To: PRISCABREANN Kevin SALMERON Sent: 03/18/2011 11:00:43 SMALL CRAFT OPERATOR ! Show up: 03/18/2011 17:00:43 [facility] Subject: Results Notification Actions: Notify patient of results Source: [facility] POWERCHART Document Id: [id number] Electronically signed by Conversion, [facility] Report Writer [id number] at 08/06/2016 1:24 PM CDT documented in this encounter Plan of Treatment Not on filedocumented as of this encounter Visit Diagnoses Not on filedocumented in this encounter
--- OUTSIDE RECORDS SUMMARY | 2022-01-04 09:41 | XMS_ITS | Encounter Summary ---
:1935 Author Organization [facility] Address [address] [place] [address] Care Team Providers Name Role Phone Unavailable Primary Care Provider Unavailable Encounter Details Date Type Department Care Team Description 10/14/2003 Hospital Encounter HX [facility] Provider, [facility] Social History Tobacco Use Types Packs/Day Years Used Date Smoking Tobacco: Never Assessed Sex Assigned at Date Recorded Not on file documented as of this encounter Miscellaneous Notes Miscellaneous - Christiana Oliveira D.O. - 10/14/2003 12:00 AM CDT [id number] Janeth Duenas [address] [place] [address] October 14, 2003 Dear Ms. Duenas, APPOINTMENT REMINDER: Our records indicates that it is time for you to be seen for an office visit. You may call our office at [phone] or [phone] to schedule an appointment for a Follow-Up Visit. Sincerely, Crhistiana Oliveira DO Department of Family Practice [facility] Source: [facility] Document Id: [id number] Electronically signed by Conversion, [facility] Clinical Leader [id number] at 08/09/2016 1:20 AM CDT Telephone Encounter - Conversion, Historical Provider Ser - 10/14/2003 12:00 AM CDT [id number] >> CHRISTIANA Hill Oct 14, 2003 3:25 PM Patient's request for a refill has been approved. Order entered - it has been faxed to [facility]. I shall send letter that appointment is due. >> SUJEY Hill Oct 14, 2003 2:26 PM >> CALL RECEIVED. Contact: Accepting this rx will be faxed directly to pharmacy. Source: [facility] RWHXTRANSXSYS Document Id: [id number] documented in this encounter Plan of Treatment Not on filedocumented as of this encounter Visit Diagnoses Not on filedocumented in this encounter
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
--- OUTSIDE RECORDS SUMMARY | 2022-01-04 09:41 | XMS_ITS | Encounter Summary ---
:1935 Author Organization [facility] Address [address] [place] [address] Care Team Providers Name Role Phone Unavailable Primary Care Provider Unavailable Encounter Details Date Type Department Care Team Description 07/23/2008 Hospital Encounter HX [facility] INPT/OBSRV Shonna Masterson M.D. [address] [place], [place] [address] [place] [phone] (Wo rk) Social History Tobacco Use Types Packs/Day Years Used Date Smoking Tobacco: Never Assessed Sex Assigned at Date Recorded Not on file documented as of this encounter Plan of Treatment Not on filedocumented as of this encounter Visit Diagnoses Not on filedocumented in this encounter
--- OUTSIDE RECORDS SUMMARY | 2022-01-04 09:41 | XMS_ITS | Encounter Summary ---
:1935 Author Organization [facility] Address [address] [place] [address] Care Team Providers Name Role Phone Unavailable Primary Care Provider Unavailable Encounter Details Date Type Department Care Team Description 11/14/2001 Hospital Encounter HX NO MAPPING Provider, Historical Social History Tobacco Use Types Packs/Day Years Used Date Smoking Tobacco: Never Assessed Sex Assigned at Date Recorded Not on file documented as of this encounter Plan of Treatment Not on filedocumented as of this encounter Visit Diagnoses Not on filedocumented in this encounter
--- OUTSIDE RECORDS SUMMARY | 2022-01-04 09:42 | XMS_ITS | Encounter Summary ---
:1935 Author Organization [facility] Address [address] [place] [address] Care Team Providers Name Role Phone Unavailable Primary Care Provider Unavailable Encounter Details Date Type Department Care Team Description 09/28/2001 Hospital Encounter HX [facility] Christiana Paredes D.O. [address] [place], [place] [address] (Wo rk) Social History Tobacco Use Types Packs/Day Years Used Date Smoking Tobacco: Never Assessed Sex Assigned at Date Recorded Not on file documented as of this encounter Miscellaneous Notes Telephone Encounter - Conversion, Historical Provider Ser - 09/28/2001 12:00 AM CDT [id number] >> CHRISTIANA PAREDES MonSep 28, 2001 5:09 PM Patient's request for a refill has been approved. Order entered - it has been faxed to pharmacy. >> AMANDA FARFAN MonSep 28, 2001 10:34 AM >> CALL RECEIVED. Contact: Accepting this rx will be faxed directly to pharmacy. [facility] Document Id: [id number] documented in this encounter Plan of Treatment Not on filedocumented as of this encounter Visit Diagnoses Not on filedocumented in this encounter
--- OUTSIDE RECORDS SUMMARY | 2022-01-04 09:42 | XMS_ITS | Encounter Summary ---
:1935 Author Organization [facility] Address [address] [place] [address] Care Team Providers Name Role Phone Unavailable Primary Care Provider Unavailable Encounter Details Date Type Department Care Team Description 2001 Hospital Encounter HX [facility] Christiana Paredes D.OKai [address] [place], [place] [address] (Wo rk) Social History Tobacco Use Types Packs/Day Years Used Date Smoking Tobacco: Never Assessed Sex Assigned at Date Recorded Not on file documented as of this encounter Miscellaneous Notes Telephone Encounter - Conversion, Historical Provider Ser - 2001 12:00 AM CST [id number] >> CHRISTIANA PAREDES Fri 2001 9:22 AM Patient's request for a refill has been approved. Order entered - it has been faxed to pharmacy. >> JODIE SARGENT Fri 2001 8:57 AM >> CALL RECEIVED. Contact: Chart in your basket Accepting this Rx will FAX it directly to the pharmacy. Source: [facility] Document Id: [id number] documented in this encounter Plan of Treatment Not on filedocumented as of this encounter Visit Diagnoses Not on filedocumented in this encounter
--- OUTSIDE RECORDS SUMMARY | 2022-01-04 09:42 | XMS_ITS | Encounter Summary ---
:1935 Author Organization [facility] Address [address] [place] [address] Care Team Providers Name Role Phone Unavailable Primary Care Provider Unavailable Encounter Details Date Type Department Care Team Description 07/31/2001 Hospital Encounter [facility] Christiana Paredes D.O. [address] [place], [place] [address] (Wo rk) Social History Tobacco Use Types Packs/Day Years Used Date Smoking Tobacco: Never Assessed Sex Assigned at Date Recorded Not on file documented as of this encounter Miscellaneous Notes Miscellaneous - Christiana Paredes D.O. - 07/31/2001 12:00 AM CDT [id number] Janeth Duenas [address] [place] [address] MR# [id number] August 01, 2001 Dear Mrs. Duenas, APPOINTMENT REMINDER: Our records indicates that it is time for you to be seen for an office visit. You may call our office at [phone] to schedule an appointment for Office Visit. Sincerely, Christiana Paredes D.O. [facility] Source[facility] Document Id: [id number] Telephone Encounter - Conversion, Historical Provider Ser - 07/31/2001 12:00 AM CDT [id number] >> CHRISTIANA PAREDES MonAugust 01, 2001 8:23 AM Patient's request for a refill has been approved. Order entered - it has been faxed to pharmacy. I shall send letter that appointment is due. >> JODIE SARGENT larissa July 31, 2001 1:43 PM >> CALL RECEIVED. Contact: Accepting this Rx will FAX it directly to the pharmacy. thank you Source: [facility]WHXTRANSXSYS Document Id: [id number] documented in this encounter Plan of Treatment Not on filedocumented as of this encounter Visit Diagnoses Not on filedocumented in this encounter
--- OUTSIDE RECORDS SUMMARY | 2022-01-04 09:42 | XMS_ITS | Encounter Summary ---
:1935 Author Organization [facility] Address [address] [place] [address] Care Team Providers Name Role Phone Unavailable Primary Care Provider Unavailable Encounter Details Date Type Department Care Team Description 01/16/2001 Hospital Encounter [facility] Provider, Hi storical Social History Tobacco Use Types Packs/Day Years Used Date Smoking Tobacco: Never Assessed Sex Assigned at Date Recorded Not on file documented as of this encounter Plan of Treatment Not on filedocumented as of this encounter Visit Diagnoses Not on filedocumented in this encounter
--- OUTSIDE RECORDS SUMMARY | 2022-01-04 09:42 | XMS_ITS | Encounter Summary ---
:1935 Author Organization [facility] Address [address] [place] [address] Care Team Providers Name Role Phone Unavailable Primary Care Provider Unavailable Encounter Details Date Type Department Care Team Description 01/11/2001 Hospital Encounter [facility]X [facility] Provider, Hi storical Social History Tobacco Use Types Packs/Day Years Used Date Smoking Tobacco: Never Assessed Sex Assigned at Date Recorded Not on file documented as of this encounter Plan of Treatment Not on filedocumented as of this encounter Visit Diagnoses Not on filedocumented in this encounter
--- OUTSIDE RECORDS SUMMARY | 2022-01-04 09:42 | XMS_ITS | Encounter Summary ---
:1935 Author Organization [facility] Address [address] [place] [address] Care Team Providers Name Role Phone Unavailable Primary Care Provider Unavailable Encounter Details Date Type Department Care Team Description 01/18/2001 Hospital Encounter HX NO MAPPING Elena Oliveira D.O. [address] [place], [place] [address] (Wo rk) Social History Tobacco Use Types Packs/Day Years Used Date Smoking Tobacco: Never Assessed Sex Assigned at Date Recorded Not on file documented as of this encounter Plan of Treatment Not on filedocumented as of this encounter Visit Diagnoses Not on filedocumented in this encounter
--- OUTSIDE RECORDS SUMMARY | 2022-01-04 09:42 | XMS_ITS | Encounter Summary ---
:1935 Author Organization [facility] Address [address] [place] [address] Care Team Providers Name Role Phone Unavailable Primary Care Provider Unavailable Encounter Details Date Type Department Care Team Description 01/22/2001 Hospital Encounter [facility]X [facility] Elena Oliveira D.O. [address] [place], [place] [address] (Wo rk) Social History Tobacco Use Types Packs/Day Years Used Date Smoking Tobacco: Never Assessed Sex Assigned at Date Recorded Not on file documented as of this encounter Plan of Treatment Not on filedocumented as of this encounter Visit Diagnoses Not on filedocumented in this encounter
--- OUTSIDE RECORDS SUMMARY | 2022-01-04 09:42 | XMS_ITS | Encounter Summary ---
:1935 Author Organization [facility] Address [address] [place] [address] Care Team Providers Name Role Phone Unavailable Primary Care Provider Unavailable Encounter Details Date Type Department Care Team Description 04/10/2001 Hospital En[facility]a Oliveira D.OKai [address] [place], [place] [address] (Wo rk) Social History Tobacco Use Types Packs/Day Years Used Date Smoking Tobacco: Never Assessed Sex Assigned at Date Recorded Not on file documented as of this encounter Miscellaneous Notes Telephone Encounter - Conversion, Historical Provider Ser - 04/10/2001 12:00 AM CST [id number] >> CHRISTIANA Hill Apr 10, 2001 1:43 PM Patient's request for a refill has been approved. Order entered - it has been faxed to pharmacy. >> JODIE Hill Apr 10, 2001 8:21 AM >> CALL RECEIVED. Contact: Accepting this Rx will FAX it directly to the pharmacy. thank you Source: [facility] Document Id: [id number] documented in this encounter Plan of Treatment Not on filedocumented as of this encounter Visit Diagnoses Not on filedocumented in this encounter
[2022-01-04 21:33] LABS: Basophils Absolute Auto 0.09 K/uL (0.00-0.30); Basophils Percent Auto 1.1 % (0.0-3.0); Eosinophils Absolute Auto 0.33 K/uL (0.00-0.50); Eosinophils Percent Auto 4.2 % (0.0-7.0); Hematocrit 38.9 % (33.0-51.0); Hemoglobin* 12.8 gm/dL (12.0-16.0); Lymphocytes Absolute Auto 1.84 K/uL (0.90-2.90); Lymphocytes Percent Auto 23.2 % (20-44); Mean Corpuscular HGB Conc 33 gm/dL (32-36); Mean Corpuscular Hemoglobin 30 pg (26-34); Mean Corpuscular Volume 92 fL (80-100); Monocytes Percent Auto 7.9 % (0.0-11.0); Neutrophils Absolute Auto 5.04 K/uL (1.7-7.0); Neutrophils Percent Auto 63.5 % (42.0-72.0); Platelet Count* 299 K/uL (140-440); RDW Coefficient of Variation % 12.5 % (11.5-15.5); Red Blood Count 4.21 m/uL (4.00-5.20); White Blood Count* 7.94 K/uL (4.50-11.00)
[2022-01-04 21:36] LABS: Slide Review Reflex No
[2022-01-04 21:38] LABS: Chloride* 104 mmol/L (96-114); Sodium* 142 mmol/L (135-149)
[2022-01-04 21:39] LABS: Potassium* 4.2 mmol/L (3.6-5.1)
[2022-01-04 21:41] LABS: Blood Urea Nitrogen* 27 mg/dL (7-30); Carbon Dioxide* 25 mmol/L (20-32); Creatinine* 1.2 mg/dL (0.5-1.5); Estimated Glomerular Filt Rate 44 ml/min
[2022-01-04 21:42] LABS: Calcium* 9.6 mg/dL (8.4-10.6); Glucose* 92 mg/dL (60-115); Uric Acid* 5.8 mg/dL (2.2-8.4)
== END 2022-01-04 09:29 | disposition home or self-care (01) ==
PROVIDERS: PCP Nurse Practitioner Family; Visit Provider Nurse Practitioner Family
DX: Z00.00 Encounter for general adult medical examination without abnormal findings (principal); I10 Essential (primary) hypertension; E78.00 Pure hypercholesterolemia, unspecified; F41.9 Anxiety disorder, unspecified; Z13.0 Encounter for screening for diseases of the blood and blood-forming organs and certain disorders involving the immune mechanism
CPT/HCPCS: 36415; 80048; 84550; 85025